=== PATIENT | male | born 1960 | race Two or more races ===

== ENCOUNTER 2022-05-02 10:02 | Emergency (ER) | payer OTHER, MEDICAID, SELFPAY ==
[2022-05-02 10:43] VITALS: BP 141/65; PULSE 85; RESP 16; TEMP 37.1; O2SAT 100; BMI 29.1
--- NOTE | 2022-05-02 13:38 | ED.BACK ---
HPI - Back Pain/Injury General Chief Complaint: Back Pain/Injury Stated Complaint: Hip/Back Pain Degenerative Disc Disease Time Seen by Provider: 05/02/22 13:28 Source: patient Mode of arrival: ambulatory Limitations: language barrier ([place]-speaking) History of Present Illness HPI Narrative: 61-year-old male with a past medical history of diabetes, hypertension, CKD, chronic back pain with degenerative disc disease who recently moved from [place] here who is [place]-speaking presenting to the ER with complaints of acute on chronic back pain over the past few months worse today. Reports that he is prescribed tramadol for his chronic back pain and has the MRI results on his phone and is able to show me. Reports that he is stab list of primary care provider at [facility] although his appointment is not until the end of June. Reports that he just ran out of his 50 mg tramadol that he was taking as prescribed for his chronic back pain. Reports that he would just need a refill for his tramadol. He brought in the empty bottle and showed it to me. He denies any new symptoms or any additional complaints or concerns at this time. MD elicited complaint: back pain Pertinent past history: prior back pain Onset (ago): month(s) Timing: constant Severity: moderate Similar Symptoms Previously: Yes Quality: aching Location: lumbar spine Radiation: none Exacerbating factors: movement, sitting upright, walking and lifting Relieving factors: other (Tramadol) Context: unknown Associated symptoms: denies other symptoms Treatments prior to arrival: other (See above) Work related injury: No Related Data Previous Rx's Medication Instructions Recorded tramadol 50 mg tablet 50 mg PO Q8H PRN pain #30 tabs 05/02/22 Allergies Allergy/AdvReac Type Severity Reaction Status Date / Time No Known Allergies Allergy Verified 05/02/22 10:42 Review of Systems Review of Systems: Constitutional : No trauma, No Weight loss, No Fever, No Chills, ENT/Mouth : No Hearing loss, No Ear Pain, No Nasal Congestion, No Sinus Pain, No Hoarseness, No sore throat, No Rhinorrhea, No Swallowing Difficulty Cardiovascular : No Chest Pain, No SOB Respiratory : No Cough, No Dyspnea Gastrointestinal : No Nausea, No Vomiting, No Diarrhea, No abdominal Pain, No Hematochezia, No Melena Genitourinary : No Dysuria, No Urinary Frequency, No Hematuria, No Urinary or Bowel Incontinence/retention Musculoskeletal : + Back pain, No neck pain, No joint stiffness, No joint swelling Skin : No Skin Lesions, No rash or signs of infection Neuro : No Weakness, No radiation, No Numbness, No Paresthesias, No headache, no loss of bowel or bladder incontinence, no saddle anesthesia, Focal weakness, No radiation Denies history of IV drug usage. Yes all other systems are reviewed and are negative [facility] Past Medical History Attestation statement: The following information was validated with the patient. Source: old records reviewed and nursing notes reviewed Physical Exam Vital Signs: Vital Signs: Last Vital Signs Temp 98.8 F 05/02/22 10:43 Pulse 85 05/02/22 10:43 Resp 16 05/02/22 10:43 BP 141/65 H 05/02/22 10:43 Pulse Ox 100 05/02/22 10:43 O2 Del Method 05/02/22 10:43 BMI result Body Mass Index 29.1 vital signs have been reviewed as normal and appeared to be correct. Blood pressure normal. Heart rate normal. Respiration rate normal. Temperature normal. Oxygen saturation normal. Appearance: Alert. Oriented X3. No acute distress. Head: Normal external exam. Normocephalic. Atraumatic. Eyes: PERRLA. EOMI. Conjunctiva and sclera normal. Eyelids normal. ENT: EAC normal. TM's Normal. Pharynx normal. Uvula midline. Moist mucous membranes. No trismus noted. No drooling noted. No muffled voice noted. Neck: Normal inspection. Neck supple. FROM. No adenopathy. Thyroid Normal. No meningeal signs. No neck mass noted. CVS: Normal heart rate and rhythm. Heart sound normal. No murmurs noted. Pulses normal throughout. Respiratory: No respiratory distress. Painless inspiration. Breath sounds normal. No wheezes/rales/rhonchi noted. Chest nontender. No accessory muscle usage noted or decreased air movement noted. Abdomen: Soft and nontender. Bowel sounds normal in all 4 quadrants. No distention noted. No organomegaly noted. No visible injury noted. Back: No CVA tenderness. Full range of motion noted. No obvious deformities, or edema. Mild para-spinal muscular tenderness from lumbar region to coccyx. Full ROM in back and lower extremities. 5/5 strength hip extension/flexion, abduction, adduction. Mild Lumbar pain with hip flexion against resistance. Straight leg raise test negative on right; Straight leg raise test negative on left; Reflexes normal ankle and knee bilaterally; EHL motor strength normal bilaterally. No rashes/lesion/induration/fluctuance or signs infection noted. Skin: Skin warm and dry. Normal skin color. Normal skin turgor. No rashes/lesions/lacerations noted. Extremities: No lower extremity edema. Extremities exhibit normal range of motion. Extremities nontender. Neuro: Oriented X 3. No motor deficit. No sensory deficit. Reflexes normal. Patient has a normal steady gait. Course Course Course Narrative: Pt c likely muscular pain, but could be herniated disc. Neuro exam shows no deficits. Not c/w AAA/epidural abscess/dissection.No high risk Hx (Incont, fever, immunosupp, recent surgery/LP, coag, signif trauma, wt loss, puls mass, hx/o Ca, TB, or IVDU) to warrant MRI/CT today. Not c/w Pyelo/UTI/kidney stone/spinal fx. Not cauda equina syndrome. No repeat imaging indicated at this time patient's MRI results as below. Will DC home with symptomatic treatment instructions follow-up with the PCP he established in June and to return if any new or worsening symptoms. Patient understands agrees with this plan. MDM - Back Pain/Injury Medical Records Attestation: I reviewed the patient's medical records. Discharge Plan Discharge Clinical Impression: Chronic back pain, Medication refill, Degenerative disc disease, lumbar Patient Disposition: Home, Self-Care Instructions: Degenerative Disc Disease (ED) Prescriptions: New tramadol 50 mg tablet 50 mg PO Q8H PRN (Reason: pain) Qty: 30 0RF Rx Instructions: May partially fill upon patient request Referrals: Physician,None [Primary Care Provider] - (your pcp as scheduled in June ) Print Language: [place]
[2022-05-02] MEDS: traMADoL HCL 50 MG TABLET PO (13:52)
== END 2022-05-02 14:08 | disposition home or self-care (01) ==
PROVIDERS: Emergency Provider Emergency Medicine; PCP Family Medicine
DX: M54.50 Low back pain, unspecified (principal); M51.36 Other intervertebral disc degeneration, lumbar region; Z79.899 Other long term (current) drug therapy
CPT/HCPCS: 99283

== ENCOUNTER 2022-06-13 11:28 | Emergency (ER) | payer OTHER, MEDICAID, SELFPAY ==
[2022-06-13 11:32] VITALS: BP 135/69; PULSE 90; RESP 19; TEMP 36.1; O2SAT 98; BMI 29.1
--- NOTE | 2022-06-13 11:36 | ED_ITS ---
HPI - Back Pain/Injury General Chief Complaint: Back Pain/Injury Stated Complaint: Back pain/Dislocated disc Time Seen by Provider: 06/13/22 11:41 Source: patient, old records reviewed and sister superior Mode of arrival: ambulatory Limitations: no limitations History of Present Illness HPI Narrative: 61 yo male with history of DM, HTN, CKD and chronic back pain your for evaluation of acute on chronic back pain in the setting of running out of his tramadol the other day. He was seen here on May 02 where his MRI was reviewed. He was discharged with a prescription for tramadol 30 tablets. He states he just recently moved here from [place]. He states tramadol is the only medication that works well for him. He is not able to take NSAIDs due to his CKD. He has an appointment with a new primary care doctor here on June 27. He denies any urinary symptoms. He denies any new injury. MD elicited complaint: back pain Pertinent past history: prior back pain Onset (ago): year(s) Timing: progressively worsening Severity: moderate Similar Symptoms Previously: Yes Location: left lower back Radiation: none Exacerbating factors: movement Relieving factors: none Context: unknown Associated symptoms: denies other symptoms Treatments prior to arrival: prescription analgesics Related Data Previous Rx's Medication Instructions Recorded tramadol 50 mg tablet 50 mg PO Q8H PRN pain #30 tabs 05/02/22 tramadol 50 mg tablet 50 mg PO Q8H PRN pain #20 tabs 06/13/22 Allergies Allergy/AdvReac Type Severity Reaction Status Date / Time No Known Allergies Allergy Verified 05/02/22 10:42 Review of Systems Review of Systems: Yes all other systems are reviewed and are negative [facility] Social History Social History Advance Directives: No Advance Directives Information Provided: Yes Physical Exam Vital Signs: Vital Signs: Last Vital Signs Temp 97 F 06/13/22 11:32 Pulse 90 06/13/22 11:32 Resp 19 06/13/22 11:32 BP 135/69 06/13/22 11:32 Pulse Ox 98 06/13/22 11:32 O2 Del Method 06/13/22 11:32 BMI result Body Mass Index 29.1 Appearance: Alert. Oriented X3. No acute distress. HEENT: normal inspection CVS: Normal heart rate and rhythm. Pulses normal. Respiratory: No respiratory distress. Skin: Skin warm and dry. Normal skin color. Normal skin turgor. No rashes. Back: normal inspection. normal ROM. Extremities: Normal inspection x4. Neuro: Oriented X 3. Steady gait Course Course Course Narrative: 61 yo male with history of DM, HTN, CKD and chronic back pain presents to the ER from home c/o acute on chronic low back pain on the left side in the setting of running out of tramadol at home. Seen here 05/02 and d/c home with rx for tramadol 50 mg for 30 tablets. No new injury. No red flag symptoms. Will discharge with a shorter course of tramadol, he has a fine with his PCP in 2 weeks. Patient given return precautions. Operations Executive used to answer all questions. Stable for discharge home. Medical Decision Making Medical Decision Making [facility] Narrative: 61-year-old male with history of CKD, HTN, dm, chronic back pain on chronic opiates who presents to the ER for refill of his tramadol prescription. No new injury. No red flag symptoms of low back pain. Differential Diagnosis Differential Diagnoses: The differential diagnosis associated with the presentation includes Degenerative disc disease, disc herniation, chronic back pain, muscle strain and spasm, UTI, less likely cauda equina, Radiology Impression Discussion of test interpretation with radiology: I have reviewed the radiologist's reading. Radiologist Impression: MRI from prior visit reviewed. External Record Review External record reviewed: Outpatient record Prescription Management I considered prescription management with: Pain Medication Chronic Conditions Patient?s care impacted by: Diabetes, Hypertension and Other (CKD) Limits treatment, not able to use NSAIDs given chronic kidney disease. Critical Care Time Critical Care Time Critical Care Time: No Discharge Plan Discharge Clinical Impression: Chronic back pain Patient Disposition: Home, Self-Care Instructions: Chronic Back Pain (DC) Additional Instructions: No bending, lifting or twisting. Use ice several times per day for 20 minutes at a time for the next 48 hours and then change to heat. Take medications as prescribed to help with pain and discomfort. Follow up with your Primary Care Doctor as soon as possible. If your pain worsens, if you develop new numbness, tingling, weakness, loss of function or incontinence call 911 or come back to the ER right away for evaluation. Sin milton colindres o carri. Use hielo varias veces al d?a peyton 20 minutos a la vez peyton las pr?ximas 48 horas y luego cambie a calor. [place] los medicamentos seg?n lo prescrito para ayudar con el dolor y la incomodidad. Sergey un seguimiento con lujan m?dico de atenci?n primaria lo antes posible. Si lujan dolor empeora, si desarrolla un nuevo entumecimiento, hormigueo, debilidad, p?rdida de funci?n o incontinencia, llame al 911 o regrese a la lilly de emergencias de inmediato para kati evaluaci?n. Prescriptions: New tramadol 50 mg tablet 50 mg PO Q8H PRN (Reason: pain) Qty: 20 0RF No Action tramadol 50 mg tablet 50 mg PO Q8H PRN (Reason: pain) Qty: 30 0RF Rx Instructions: May partially fill upon patient request Referrals: Jeanmarie Pineda MD [Primary Care Provider] - (chronic back pain) Interventions: ED Discharge Assessment Last Done: 06/13/22 11:43 Discharge Date/Time: 06/13/22 11:44 Print Language: Lithuanian
== END 2022-06-13 11:44 | disposition home or self-care (01) ==
PROVIDERS: Emergency Provider Student in an Organized Health Care Education/Training Program; PCP Family Medicine
DX: G89.29 Other chronic pain (principal); M54.50 Low back pain, unspecified; E11.22 Type 2 diabetes mellitus with diabetic chronic kidney disease; I12.9 Hypertensive chronic kidney disease with stage 1 through stage 4 chronic kidney disease, or unspecified chronic kidney disease; N18.9 Chronic kidney disease, unspecified
CPT/HCPCS: 99282; 99283

== ENCOUNTER 2022-06-27 10:24 | Outpatient (REF) | payer OTHER, MEDICAID, SELFPAY ==
[2022-06-27 14:13] LABS: Amphetamine Screen Urine Not Detected (Not Detect); Barbiturates, Urine Not Detected (Not Detect); Benzodiazepines Screen Urine Not Detected (Not Detect); Cannabinoid Screen Urine Not Detected (Not Detect); Cocaine Screen Urine Not Detected (Not Detect); Fentanyl, urine Not Detected (Not Detect); Opiate Screen Urine Not Detected (Not Detect); Phencyclidine Screen Urine Not Detected (Not Detect)
[2022-06-27 14:20] LABS: Basophils Absolute Auto 0.1 X10*3/uL (0.0-0.2); Basophils Percent Auto 1.1 % (0-2); Eosinophils Absolute Auto 0.3 X10*3/uL (0.0-0.4); Eosinophils Percent Auto 4.3 % (0-4); Hematocrit 40.2 % (42.0-52.0); Hemoglobin 13.1 g/dl (14.0-18.0); Imm Gran Abs Auto 0.02 X10*3/uL (0.00-0.03); Imm Gran Pct Auto 0.3 % (0.0-0.4); Lymphocytes Absolute Auto 2.2 X10*3/uL (1.2-4.9); Lymphocytes Percent Auto 34.3 % (20-40); MANUAL DIFF FLAG NO; Mean Corpuscular HGB Conc 32.6 g/dl (31.0-36.0); Mean Corpuscular Hemoglobin 30.3 pg (27.0-33.0); Mean Corpuscular Volume 92.8 fL (80.0-98.0); Monocytes Absolute Auto 0.6 X10*3/uL (0.1-1.2); Monocytes Percent Auto 9.3 % (2-11); Neutrophils Absolute Auto 3.3 x10*3/uL (2.0-8.3); Neutrophils Percent Auto 50.7 % (45-73); Platelet Count 304 X10*3/uL (160-400); Red Blood Count 4.33 X10*6/uL (4.60-5.80); Red Cell Distribution Width 13.2 % (11.0-16.0); White Blood Count 6.5 X10*3/uL (4.8-10.8)
[2022-06-27 14:21] LABS: Appearance Urine Clear; Color Urine Yellow; Glucose Urine UA >=1000 mg/dL (Negative); Leukocyte Esterase Urine Negative (Negative); Nitrite Urine Negative (Negative); PH 5.5 (5.0-9.0); Specific Gravity - Urine 1.025 (1.005-1.025); UMIC TRIGGER UA YES; Urine Blood Negative (Negative); Urine Ketones Negative (Negative); Urine Protein Negative (Neg-Trace)
[2022-06-27 14:28] LABS: Bacteria Urine None Seen (None Seen); Hyaline Casts Urine 0-2 /LPF (0-2); RBC Urine 0-2 /HPF (0-2); Squamous Epithelial Cell Urine 0-2 /HPF (0-2); WBC Urine 0-5 /HPF (0-5)
[2022-06-27 14:56] LABS: Erythrocyte Sedimentation Rate 29 MM/HR (0-15)
[2022-06-27 15:06] LABS: Creatinine Urine 62.34 mg/dL
[2022-06-27 15:32] LABS: Prostate Specific Antigen Scr 2.31 ng/mL (<0.05-4.0); TSH reflex Free T4 2.47 uIU/mL (0.32-4.0)
[2022-06-27 15:39] LABS: Estimated Average Glucose 306 mg/dL; Hemoglobin A1c % 12.3 %
[2022-06-27 15:46] LABS: Alanine Aminotransferase 31 U/L (0-40); Albumin Level 4.1 g/dL (3.5-5.0); Alkaline Phosphatase 75 U/L (39-117); Anion Gap 16 (12-20); Aspartate Amino Transferase 13 U/L (5-37); Bilirubin Total 0.3 mg/dL (0.0-1.0); Blood Urea Nitrogen 28 mg/dL (9-16); Calcium 9.3 mg/dL (8.4-10.2); Carbon Dioxide 27 mmol/L (22-29); Chloride 99 mmol/L (96-108); Cholesterol 240 mg/dL; Estimated Glomerular Filt Rate 27; Glucose Fasting 370 mg/dL (60-99); HDL Cholesterol 21 mg/dL; Potassium 4.8 mmol/L (3.3-5.1); Sodium 137 mmol/L (135-145); Total Protein 7.9 g/dL (6.5-8.0); Triglycerides 853 mg/dL
[2022-06-27 16:02] LABS: Microalbum/Creatinine Ratio Ur 62.5 ug/mg cr
== END 2022-06-27 10:25 | disposition home or self-care (01) ==
LOC: HO.WFDLDS 10:24
PROVIDERS: Visit Provider Family Medicine
DX: Z00.00 Encounter for general adult medical examination without abnormal findings (principal); Z12.5 Encounter for screening for malignant neoplasm of prostate; I10 Essential (primary) hypertension; M54.50 Low back pain, unspecified; R73.01 Impaired fasting glucose; G89.29 Other chronic pain
CPT/HCPCS: 36415; 80053; 80061; 80307; 81001; 81003; 82043; 83036; 84153; 84443; 85025; 85652

== ENCOUNTER 2022-07-14 11:09 | Emergency (ER) | payer OTHER, SELFPAY ==
[2022-07-14 11:26] VITALS: BP 132/67; PULSE 90; RESP 20; TEMP 36.8; O2SAT 100; BMI 31.6
--- NOTE | 2022-07-14 11:29 | ED.EXTPRO ---
HPI - Extremity Problem General Stated complaint: Leg Pain Time Seen by Provider: 07/14/22 11:28 Related Data Home Medications Medication Instructions Recorded Confirmed allopurinol 100 mg tablet 100 mg PO DAILY 06/27/22 aspirin 81 mg tablet,delayed 81 mg PO DAILY 06/27/22 release (Pilar Low Dose Aspirin) atorvastatin 20 mg tablet 20 mg PO DAILY 06/27/22 blood sugar diagnostic (OneTouch #10 ea 06/27/22 Ultra Test strips) carvedilol 12.5 mg tablet 12.5 mg PO BID 06/27/22 colchicine 0.6 mg tablet 0.6 mg PO DAILY 06/27/22 folic acid 1 mg tablet 1 mg PO DAILY 06/27/22 hydrochlorothiazide 12.5 mg capsule 12.5 mg PO DAILY 06/27/22 losartan 25 mg tablet 25 mg PO DAILY 06/27/22 ondansetron 4 mg disintegrating 4 mg PO Q8H 06/27/22 tablet tizanidine 4 mg capsule 4 mg PO BEDTIME PRN 06/27/22 tramadol 50 mg tablet 50 mg PO BID PRN 06/27/22 Previous Rx's Medication Instructions Recorded tramadol 50 mg tablet 50 mg PO Q8H PRN pain #30 tabs 05/02/22 tramadol 50 mg tablet 50 mg PO Q8H PRN pain #20 tabs 06/13/22 amlodipine 10 mg tablet 10 mg PO DAILY 30 days #30 tabs 06/27/22 dapagliflozin 10 mg tablet 10 mg PO DAILY 30 days #30 tabs 06/27/22 ([facility]) dulaglutide 0.75 mg/0.5 mL 0.75 mg (0.5 mL) subcut QWEEK 28 06/27/22 subcutaneous pen injector days #2 mL ([facility]) fenofibrate 160 mg tablet 160 mg PO DAILY 30 days #30 tabs 06/27/22 gabapentin 100 mg capsule 100 mg PO BID 30 days #60 caps 06/27/22 hydroxyzine HCl 50 mg tablet 50 mg PO DAILY PRN anxiety 30 days 06/27/22 #12 tabs insulin aspar prot-insulin aspart See Rx Instructions subcut DAILY 06/27/22 100 unit/mL (70-30) subcutaneous 30 days #27 mL pen (Novolog Mix 70-30FlexPen U-100) tramadol 50 mg tablet 50 mg PO Q8H PRN pain #14 tabs 02/10/23 Allergies Allergy/AdvReac Type Severity Reaction Status Date / Time No Known Allergies Allergy Verified 06/27/22 09:37 [facility] Past Medical History Medical History Smoker Social History Social History e-Cigarette/Vaping Use: Never Used Current occupational status: unemployed Cognitive needs: No Hearing needs: No Vision needs: Yes (wears glasses) Discharge Plan Discharge Clinical Impression: Chronic left hip pain, Chronic back pain Patient Disposition: Home, Self-Care Instructions: Chronic Pain (ED) Prescriptions: New tramadol 50 mg tablet 50 mg PO Q8H PRN (Reason: pain) Qty: 14 0RF Rx Instructions: May partially fill upon patient request No Action tramadol 50 mg tablet 50 mg PO Q8H PRN (Reason: pain) Qty: 20 0RF tramadol 50 mg tablet 50 mg PO Q8H PRN (Reason: pain) Qty: 30 0RF Rx Instructions: May partially fill upon patient request losartan 25 mg tablet 25 mg PO DAILY hydrochlorothiazide 12.5 mg capsule 12.5 mg PO DAILY carvedilol 12.5 mg tablet 12.5 mg PO BID folic acid 1 mg tablet 1 mg PO DAILY atorvastatin 20 mg tablet 20 mg PO DAILY tramadol 50 mg tablet 50 mg PO BID PRN aspirin [Pilar Low Dose Aspirin] 81 mg tablet,delayed release (DR/EC) 81 mg PO DAILY tizanidine 4 mg capsule 4 mg PO BEDTIME PRN (DME) OneTouch Ultra Test Strip See Rx Instructions .ROUTE BID Qty: 10 Rx Instructions: As directed allopurinol 100 mg tablet 100 mg PO DAILY ondansetron 4 mg tablet,disintegrating 4 mg PO Q8H colchicine 0.6 mg tablet 0.6 mg PO DAILY gabapentin 100 mg capsule 100 mg PO BID 30 Days Qty: 60 2RF hydroxyzine HCl 50 mg tablet 50 mg PO DAILY PRN (Reason: anxiety) 30 Days Qty: 12 0RF Trulicity 0.75 mg/0.5 mL pen injector 0.75 mg subcut QWEEK 28 Days Qty: 2 3RF insulin asp prt-insulin aspart [Novolog Mix 70-30FlexPen U-100] 100 unit/mL (70-30) insulin pen See Rx Instructions subcut DAILY 30 Days Qty: 27 3RF Rx Instructions: 20 - 30 U subcutaneously daily; fenofibrate 160 mg tablet 160 mg PO DAILY 30 Days Qty: 30 3RF Farxiga 10 mg tablet 10 mg PO DAILY 30 Days Qty: 30 3RF amlodipine 10 mg tablet 10 mg PO DAILY 30 Days Qty: 30 2RF Referrals: Jeanmarie Pineda MD [Primary Care Provider] - 2 days Print Language: Norwegian
--- NOTE | 2022-07-14 13:29 | ED.BACK ---
HPI - Back Pain/Injury General Chief Complaint: General Medical Stated Complaint: Leg Pain Time Seen by Provider: 07/14/22 11:28 Source: patient Mode of arrival: ambulatory Limitations: language barrier (Luxembour[place]-speaking) History of Present Illness HPI Narrative: 61-year-old male with a past medical history of diabetes, hypertension, CKD, chronic hip/back pain with degenerative disc disease who recently moved from [place] last year to here who is [place]bourger-speaking presenting to the ER with complaints of acute on chronic hip/back pain over the past few months worse today.? Reports that he is prescribed tramadol for his chronic back pain and has the MRI results on his phone and is able to show me.??Although when he went to his primary care provider's office they did not prescribe him the tramadol instead they gave him gabapentin he is reporting this is providing no symptomatic relief for his lower back/hip pain. Reports he wants a refill for his tramadol that he was usually prescribed. He denies any new symptoms related to this. MD elicited complaint: back pain Pertinent past history: prior back pain Onset (ago): day(s) Timing: constant Severity: moderate Similar Symptoms Previously: Yes Quality: aching Location: lumbar spine Radiation: left upper leg (hip area) Exacerbating factors: movement, walking and lifting Relieving factors: none Context: unknown Associated symptoms: denies other symptoms Treatments prior to arrival: cold therapy, heat therapy, NSAIDS and acetaminophen Work related injury: No Related Data Home Medications Medication Instructions Recorded Confirmed allopurinol 100 mg tablet 100 mg PO DAILY 06/27/22 aspirin 81 mg tablet,delayed 81 mg PO DAILY 06/27/22 release (Pilar Low Dose Aspirin) atorvastatin 20 mg tablet 20 mg PO DAILY 06/27/22 blood sugar diagnostic ([employer] #10 ea 06/27/22 Ultra Test strips) carvedilol 12.5 mg tablet 12.5 mg PO BID 06/27/22 colchicine 0.6 mg tablet 0.6 mg PO DAILY 06/27/22 folic acid 1 mg tablet 1 mg PO DAILY 06/27/22 hydrochlorothiazide 12.5 mg capsule 12.5 mg PO DAILY 06/27/22 losartan 25 mg tablet 25 mg PO DAILY 06/27/22 ondansetron 4 mg disintegrating 4 mg PO Q8H 06/27/22 tablet tizanidine 4 mg capsule 4 mg PO BEDTIME PRN 06/27/22 tramadol 50 mg tablet 50 mg PO BID PRN 06/27/22 Previous Rx's Medication Instructions Recorded tramadol 50 mg tablet 50 mg PO Q8H PRN pain #30 tabs 05/02/22 tramadol 50 mg tablet 50 mg PO Q8H PRN pain #20 tabs 06/13/22 amlodipine 10 mg tablet 10 mg PO DAILY 30 days #30 tabs 06/27/22 dapagliflozin 10 mg tablet 10 mg PO DAILY 30 days #30 tabs 06/27/22 ([facility]) dulaglutide 0.75 mg/0.5 mL 0.75 mg (0.5 mL) subcut QWEEK 28 06/27/22 subcutaneous pen injector days #2 mL ([facility]) fenofibrate 160 mg tablet 160 mg PO DAILY 30 days #30 tabs 06/27/22 gabapentin 100 mg capsule 100 mg PO BID 30 days #60 caps 06/27/22 hydroxyzine HCl 50 mg tablet 50 mg PO DAILY PRN anxiety 30 days 06/27/22 #12 tabs insulin aspar prot-insulin aspart See Rx Instructions subcut DAILY 06/27/22 100 unit/mL (70-30) subcutaneous 30 days #27 mL pen (Novolog Mix 70-30FlexPen U-100) tramadol 50 mg tablet 50 mg PO Q8H PRN pain #14 tabs 07/14/22 Allergies Allergy/AdvReac Type Severity Reaction Status Date / Time No Known Allergies Allergy Verified 06/27/22 09:37 Review of Systems Review of Systems: Constitutional : No trauma, No Weight loss, No Fever, No Chills, ENT/Mouth : No Hearing loss, No Ear Pain, No Nasal Congestion, No Sinus Pain, No Hoarseness, No sore throat, No Rhinorrhea, No Swallowing Difficulty Cardiovascular : No Chest Pain, No SOB Respiratory : No Cough, No Dyspnea Gastrointestinal : No Nausea, No Vomiting, No Diarrhea, No abdominal Pain, No Hematochezia, No Melena Genitourinary : No Dysuria, No Urinary Frequency, No Hematuria, No Urinary or Bowel Incontinence/retention Musculoskeletal : + Back/hip pain, No neck pain, No joint stiffness, No joint swelling Skin : No Skin Lesions, No rash or signs of infection Neuro : No Weakness, No radiation, No Numbness, No Paresthesias, No headache, no loss of bowel or bladder incontinence, no saddle anesthesia, Focal weakness, No radiation Denies history of IV drug usage. Yes all other systems are reviewed and are negative [facility] Past Medical History Attestation statement: The following information was validated with the patient. Source: old records reviewed and nursing notes reviewed Medical History Smoker Social History Social History e-Cigarette/Vaping Use: Never Used Advance Directives: No Advance Directives Information Provided: Yes Current occupational status: unemployed Cognitive needs: No Hearing needs: No Vision needs: Yes (wears glasses) Physical Exam Vital Signs: Vital Signs: Last Vital Signs Temp 98.2 F 07/14/22 11:26 Pulse 90 07/14/22 11:26 Resp 20 07/14/22 11:26 BP 132/67 07/14/22 11:26 Pulse Ox 100 07/14/22 11:26 O2 Del Method 07/14/22 11:26 BMI result Body Mass Index 31.6 vital signs have been reviewed as normal and appeared to be correct. Blood pressure normal. Heart rate normal. Respiration rate normal. Temperature normal. Oxygen saturation normal. Appearance: Alert. Oriented X3. No acute distress. Head: Normal external exam. Normocephalic. Atraumatic. No Solomon signs noted. No raccoon eyes noted Eyes: PERRLA. EOMI. Conjunctiva and sclera normal. Eyelids normal. ENT: EAC normal. TM's Normal. Pharynx normal. Uvula midline. Moist mucous membranes. No trismus noted. No drooling noted. No muffled voice noted. Neck: Normal inspection. Neck supple. FROM. No adenopathy. Thyroid Normal. No meningeal signs. No neck mass noted. CVS: Normal heart rate and rhythm. Heart sound normal. No murmurs noted. Pulses normal throughout. Respiratory: No respiratory distress. Painless inspiration. Breath sounds normal. No wheezes/rales/rhonchi noted. Chest nontender. No accessory muscle usage noted or decreased air movement noted. Abdomen: Soft and nontender. Bowel sounds normal in all 4 quadrants. No distention noted. No organomegaly noted. No visible injury noted. Back: No CVA tenderness. Full range of motion noted. No obvious deformities, or edema. Mild para-spinal muscular tenderness from lumbar region to coccyx. Full ROM in back and lower extremities. 5/5 strength hip extension/flexion, abduction, adduction. Mild Lumbar pain with hip flexion against resistance. Straight leg raise test negative on right; Straight leg raise test negative on left; Reflexes normal ankle and knee bilaterally; EHL motor strength normal bilaterally. No rashes/lesion/induration/fluctuance or signs infection noted. Skin: Skin warm and dry. Normal skin color. Normal skin turgor. No rashes/lesions/lacerations noted. Extremities: No lower extremity edema. Extremities exhibit normal range of motion. Extremities nontender. Neuro: Oriented X 3. No motor deficit. No sensory deficit. Reflexes normal. Patient has a normal steady gait. Course Course Course Narrative: Pt c likely muscular pain, but could be herniated disc. Neuro exam shows no deficits. Not c/w AAA/epidural abscess/dissection.No high risk Hx (Incont, fever, immunosupp, recent surgery/LP, coag, signif trauma, wt loss, puls mass, hx/o Ca, TB, or IVDU) to warrant MRI/CT today. Not c/w Pyelo/UTI/kidney stone/spinal fx. Not cauda equina syndrome. Imaging not currently indicated. DC c meds and f/u. Medical Decision Making External Record Review External record reviewed: Inpatient record, Office record, Outpatient record, Prior outpatient labs, Prior outpatient radiology, Primary care record and Outside ED record Prescription Management I considered prescription management with: Pain Medication (I reviewed the patient mass pat and he only had 2 prior prescription for tramadol in our system) Chronic Conditions Patient?s care impacted by: Diabetes and Hypertension Discharge Plan Discharge Clinical Impression: Chronic left hip pain, Chronic back pain Patient Disposition: Home, Self-Care Prescriptions: New tramadol 50 mg tablet 50 mg PO Q8H PRN (Reason: pain) Qty: 14 0RF Rx Instructions: May partially fill upon patient request No Action tramadol 50 mg tablet 50 mg PO Q8H PRN (Reason: pain) Qty: 20 0RF tramadol 50 mg tablet 50 mg PO Q8H PRN (Reason: pain) Qty: 30 0RF Rx Instructions: May partially fill upon patient request losartan 25 mg tablet 25 mg PO DAILY hydrochlorothiazide 12.5 mg capsule 12.5 mg PO DAILY carvedilol 12.5 mg tablet 12.5 mg PO BID folic acid 1 mg tablet 1 mg PO DAILY atorvastatin 20 mg tablet 20 mg PO DAILY tramadol 50 mg tablet 50 mg PO BID PRN aspirin [Pilar Low Dose Aspirin] 81 mg tablet,delayed release (DR/EC) 81 mg PO DAILY tizanidine 4 mg capsule 4 mg PO BEDTIME PRN (DME) OneTouch Ultra Test Strip See Rx Instructions .ROUTE BID Qty: 10 Rx Instructions: As directed allopurinol 100 mg tablet 100 mg PO DAILY ondansetron 4 mg tablet,disintegrating 4 mg PO Q8H colchicine 0.6 mg tablet 0.6 mg PO DAILY gabapentin 100 mg capsule 100 mg PO BID 30 Days Qty: 60 2RF hydroxyzine HCl 50 mg tablet 50 mg PO DAILY PRN (Reason: anxiety) 30 Days Qty: 12 0RF Trulicity 0.75 mg/0.5 mL pen injector 0.75 mg subcut QWEEK 28 Days Qty: 2 3RF insulin asp prt-insulin aspart [Novolog Mix 70-30FlexPen U-100] 100 unit/mL (70-30) insulin pen See Rx Instructions subcut DAILY 30 Days Qty: 27 3RF Rx Instructions: 20 - 30 U subcutaneously daily; fenofibrate 160 mg tablet 160 mg PO DAILY 30 Days Qty: 30 3RF Farxiga 10 mg tablet 10 mg PO DAILY 30 Days Qty: 30 3RF amlodipine 10 mg tablet 10 mg PO DAILY 30 Days Qty: 30 2RF Referrals: Jeanmarie Pineda MD [Primary Care Provider] - 2 days Interventions: ED Discharge Assessment Last Done: 07/14/22 11:43 Discharge Date/Time: 07/14/22 11:44 Print Language: Luxembourger
== END 2022-07-14 11:44 | disposition home or self-care (01) ==
PROVIDERS: Emergency Provider Student in an Organized Health Care Education/Training Program; PCP Family Medicine
DX: M25.552 Pain in left hip (principal); M54.50 Low back pain, unspecified
CPT/HCPCS: 99282; 99283

== ENCOUNTER 2022-07-28 09:00 | Outpatient (RCR) | payer OTHER, SELFPAY | END 2022-08-17 09:36 | disposition home or self-care (01) | LOC: HO.PT 09:00 | PROVIDERS: PCP Family Medicine; Visit Provider Family Medicine | DX: M54.50 Low back pain, unspecified (principal) | CPT/HCPCS: 97110; 97140; 97162 ==

== ENCOUNTER 2022-08-18 11:40 | Outpatient (REF) | payer OTHER, SELFPAY ==
[2022-08-18 13:09] LABS: Creatinine Urine 95.39 mg/dL; Total Protein Urine Random 10 mg/dL (<12)
[2022-08-18 13:44] LABS: Creatinine, mg/dL 84.81
[2022-08-18 14:10] LABS: Anion Gap 15 (12-20); Blood Urea Nitrogen 40 mg/dL (9-16); Calcium 9.8 mg/dL (8.4-10.2); Carbon Dioxide 28 mmol/L (22-29); Chloride 103 mmol/L (96-108); Estimated Glomerular Filt Rate 24; Phosphorus 4.1 mg/dL (2.7-4.5); Potassium 5.1 mmol/L (3.3-5.1); Sodium 141 mmol/L (135-145); Uric Acid 8.8 mg/dL (3.4-7.0); Vitamin D 25-OH Total 31.9 ng/mL (>30)
[2022-08-18 15:48] LABS: Creatinine, 24Hr Urine 2.1 G/Day (1.0-2.0); Total Volume 24 Hour Urine 2425 mL
[2022-08-18 15:51] LABS: Creatinine (CrCl) 2.76 mg/dL (0.5-1.4); Creatinine Clearance 51.7 mL/min (85-125)
[2022-08-21 11:50] LABS: ~Hepatitis C Antibody Nonreactive (Nonreactive)
[2022-08-21 14:04] LABS: PTHI 13 pg/mL (16-77)
[2022-08-23 00:33] LABS: Prot Elec - Albumin 4.5 g/dL (3.8-4.8); Prot Elec - Alpha1 0.3 g/dL (0.2-0.3); Prot Elec - Alpha2 0.7 g/dL (0.5-0.9); Prot Elec - Beta 1 0.5 g/dL (0.4-0.6); Prot Elec - Beta 2 0.5 g/dL (0.2-0.5); Prot Elec - Gamma 1.2 g/dL (0.8-1.7); Prot Elec - Total Protein 7.7 g/dL (6.1-8.1)
[2022-08-25 19:13] LABS: Phospholipase A2 IgG ELISA <4 RU/mL; Phospholipase A2 IgG IFA NEGATIVE (NEGATIVE)
== END 2022-08-18 11:41 | disposition home or self-care (01) ==
LOC: HO.LAB 11:40
PROVIDERS: Visit Provider Internal Medicine Nephrology
DX: I12.9 Hypertensive chronic kidney disease with stage 1 through stage 4 chronic kidney disease, or unspecified chronic kidney disease (principal); N18.4 Chronic kidney disease, stage 4 (severe)
CPT/HCPCS: 36415; 80051; 82306; 82310; 82565; 82575; 83520; 83970; 84100; 84156; 84165; 84520; 84550; 86255; 86803

== ENCOUNTER → 2022-09-20 08:52 | Outpatient (BNVA) | payer OTHER, SELFPAY | PROVIDERS: PCP Family Medicine; Referring Provider Family Medicine; Visit Provider Internal Medicine Cardiovascular Disease | DX: I25.10 Atherosclerotic heart disease of native coronary artery without angina pectoris (principal); R07.9 Chest pain, unspecified | CPT/HCPCS: 93005; 99202 ==

== ENCOUNTER → 2022-10-16 07:38 | Outpatient (REF) | payer OTHER, SELFPAY ==
--- NOTE | ~2022-10-16 | NM_ITS ---
EXERCISE MYOCARDIAL PERFUSION STUDY INDICATION: EXERCISE MYOCARDIAL PERFUSION STUDY INDICATION: Chest pain, assess for coronary disease and ischemia TECHNIQUE: The patient was brought in for an exercise perfusion study on 10/16/2022. Patient performed exercise as per Aguilar protocol and was injected 25 mCi of sestamibi once target heart rate was achieved. Images were obtained using the SPECT gamma camera interlaced with the gating device. Images were obtained in supine position. Resting perfusion study was performed on 10/18/2022. Patient was administered 25 mCi of sestamibi intravenously at rest. Images were then obtained in supine position. Images were processed with the software and compared side to side in short axis, horizontal long axis and vertical long axis views. Total DLP 164mGy-cm. FINDINGS: Raw images were reviewed. Arms by the patient's side. The stress perfusion study showed diminished tracer uptake along the inferolateral wall from base to apex. There is improvement with CT attenuation correction suggestive of diaphragmatic attenuation artifact. The gated study shows normal LV systolic function with calculated LVEF of 53%. LV cavity is normal in size. The gated study shows normal wall thickening and contraction of segments. Resting study shows no significant perfusion abnormality. Gating at rest reveals normal wall motion with ejection fraction at 65%. The findings are consistent with reversible inferolateral defect with improvement during CT attenuation correction. NM/NM cardiolite stress test IMPRESSION: 1. Myocardial perfusion imaging study shows probable ischemia in the inferolateral wall. Improvement with CT attenuation correction suggestive of diaphragmatic attenuation artifact, but considering the patient's symptoms and coronary anatomy, could also be from ischemia. 2. Gated LVEF is 50% during stress and 64% during rest. 3. Transient ischemic dilatation not present. EKG component of the test reported separately.
--- NOTE | 2022-10-16 07:42 | CA_ITS ---
Acquisition Time: 2022-10-16 08:44:13 Total Exercise Time: 00:07:27 Test Indications: CHEST PAIN Medications: CARVEDILOL ASA HCTZ ALLOPURINOL Protocol: JOSE ANTONIO Max HR: 126 BPM 79% of Pred: 159 BPM Max BP: 150/080 mmHG Max Work Load: 9.2 METS Exercise stress test with exercise 7 min 27 sec of Jose Antonio protocol, achieving 79% MPHR, 9.2 METs, with moderate sob and fatigue with need to stop, no chest discomfort, without arrythmia, with normotensive response to exercise, with nondiagnostic EKG for ischemia due to baseline ST/ T wave abn leads III, aVF, V6. In recovery his breathing quickly improved. Nuclear images pending. Test reviewed with Dr Schaffer. Referred By: Tl Jones Overread By: SERAFIN ROSARIO
--- NOTE | 2022-10-16 07:42 | CA_ITS ---
Transthoracic Echocardiogram Patient (Last, First, Middle): Efrain Dewitt, Gender: Male Date of : 1960 Age: 61 Procedure Date: 10/16/2022 Procedure Type: Transthoracic Echocardiogram Location: OP Height: 165.1 cm Weight: 81.19 kg BSA: 1.89 m2 Heart Rate: 83 bpm BP: 145 / 70 mmHg Coating Technician: BRITTANY Referring MD: Tl Jones MD Symptoms: R07.9 - Chest pain, unspecified Study Quality: Good ECG Rhythm: Sinus Conclusions: - The left ventricular systolic function is normal. The calculated ejection fraction is 57% by biplane method. - No obvious valvular pathology seen on this study. Findings Left Ventricle Normal left ventricular cavity size. There is mildly increased left ventricular wall thickness. The left ventricular systolic function is normal. The calculated ejection fraction is 57% by biplane method. There is no evidence of regional wall motion abnormalities. Diastolic function is normal for age. LV peak GLS -15.2% (question reliability). Right Ventricle Normal right ventricular cavity size and systolic function. Atria Both atria are normal in size. Aortic Valve There is a normal trileaflet aortic valve. There is no aortic valve stenosis. There is no aortic valve regurgitation. Mitral Valve The mitral valve appears normal. There is trace mitral valve regurgitation. There is no mitral valve stenosis. Pulmonic Valve The pulmonic valve is likely normal. Tricuspid Valve Normal tricuspid valve structure. There is trace tricuspid valve regurgitation. There is no evidence of pulmonary hypertension. Great Vessels The asc aorta is normal in size. Venous The inferior vena cava is normal in size and collapses greater than 50% with inspiration. Pericardium/Pleural There is no evidence of pericardial effusion. Prior Study Comparison No prior study available for comparison. Recommendations, Care & Conclusions No obvious valvular pathology seen on this study. Measurements 2D Linear Measurements IVSd: 1.07 0.6-0.9/0.6-1.0 cm LVIDd: 4.89 3.9-5.3/4.2-5.9 cm LVIDd Index: 2.59 2.4-3.2/2.2-3.1 cm/m2 LVIDs: 3.20 2.0-3.6 cm LVPWd: 1.11 0.7-1.1 cm LA Diam: 3.80 2.7-3.8/3.0-4.0 cm LAIDs Index: 2.01 1.5-2.3 cm/m2 LV Mass: 245.92 67-162/88-224 g LV Mass Index: 130.12 43-95/49-115 g/m2 LVOT Diam: 2.00 3.0+(-)1.3 cm 2D Systolic Function EF 4C: 57.00 >55% EF 2C: 58.40 >55% EF BiP: 57.30 >55% Mitral Valve MV Pk E: 0.92 MV PK A: 0.91 MV Decel Time: 208.00 E/A: 1.00 E'Lateral: 8.35 E'Medial: 8.43 E/E' Med: 10.90 E/E' Lat: 11.00 PHT: 61.00 MVA PHT: 3.61 Decel Norton: 4.42 Aortic Valve AoV Pk Marcos: 1.52 AoV Mn Marcos: 1.03 AoV VTI: 0.32 AoV Pk Grad: 9.00 Aov Mn Grad: 5.00 STEPHANIE Cont.VTI: 2.62 LVOT LVOT Pk Marcos: 1.26 LVOT Mn Marcos: 0.89 LVOT VTI: 0.27 LVOT Pk Grad: 6.00 LVOT Mn Grad: 4.00 LVOT Diam: 2.00 LVOT Area: 3.14 Diastolic Function MV Pk E: 0.92 MV Pk A: 0.91 E/A: 1.00 E'Medial: 8.43 E/E' Med: 10.90 E' Laterial: 8.35 E/E' Lat: 11.00 Right Ventricle TAPSE (mm): 22.60 TVS' Marcos: 10.90 Tricuspid Valve TR Pk Marcos: 1.35 TR Pk Grad: 7.00 RA Press: 3.00 RVSP: 10.00 Great Vessels Aorta Sinus of Valsalva: 3.50 2.0-3.5 cm Ao Asc: 3.20 2.1-3.4 cm Updated in Other Vendor System with Status of Final Raman Veras MD electronically signed on 10/16/2022 9:15:30 AM with status of Final
== END ==
LOC: HO.CARD 07:38
PROVIDERS: PCP Family Medicine; Visit Provider Internal Medicine Cardiovascular Disease
DX: R07.9 Chest pain, unspecified (principal)
CPT/HCPCS: 78452; 93017; 93306; 93356; A9500

== ENCOUNTER → 2022-10-23 08:35 | Outpatient (BNVA) | payer OTHER, SELFPAY | PROVIDERS: PCP Family Medicine; Referring Provider Family Medicine; Visit Provider Internal Medicine Cardiovascular Disease | DX: R07.9 Chest pain, unspecified (principal) | CPT/HCPCS: 99212 ==

== ENCOUNTER 2022-11-17 16:14 | Outpatient (REF) | payer OTHER, SELFPAY ==
--- NOTE | ~2022-11-17 | XR_ITS ---
EXAMINATION: XR CHEST CLINICAL INFORMATION: Bilateral lower extremity swelling COMPARISON: None available. TECHNIQUE: 2 views of the chest were obtained. FINDINGS: The cardiac and mediastinal contours are normal. The lungs are clear. No pleural effusion or pneumothorax. Degenerative changes of the spine. XR/XR chest 2V IMPRESSION: No evidence for acute disease in the chest.
== END 2022-11-17 16:15 | disposition home or self-care (01) ==
LOC: HO.HHCX 16:14
PROVIDERS: Visit Provider Nurse Practitioner Family
DX: R60.0 Localized edema (principal)
CPT/HCPCS: 71046

== ENCOUNTER 2023-01-23 09:20 | Outpatient (AMB) | payer OTHER, SELFPAY ==
--- NOTE | 2023-01-23 09:23 | MHC.OFFVIS ---
Intake Vital Signs 01/23/23 09:24 Height 5 ft 5 in Weight 189 lb 9.561 oz BMI 31.5 BP 120/76 Blood Pressure Location Lt brachial Position Sitting Pulse 80 Intake Visit Reasons: 3 month follow up Intake Note: 3 month follow-up feeling good Display Coordinator Required: Yes Display Coordinator Name: Kandy caldera Allergies No Known Allergies Allergy (Verified 10/23/22 08:51) Medication List - Last Reconciled 01/23/23 by Tl Jones MD allopurinol 100 mg PO DAILY amlodipine 10 mg PO DAILY aspirin (Pilar Low Dose Aspirin) 81 mg PO DAILY atorvastatin 80 mg PO DAILY 90 days blood sugar diagnostic ([employer] Ultra Test strips) As directed carvedilol 12.5 mg PO BID dapagliflozin propanediol (Farxiga) 10 mg PO DAILY 30 days folic acid 1 mg PO DAILY gabapentin 100 mg PO BID 30 days hydroxyzine HCl 50 mg PO DAILY PRN icosapent ethyl (Vascepa) 2 grams (2 x 1 gram) PO BID insulin glargine (Lantus Solostar U-100 Insulin) units subcut isosorbide mononitrate ER 30 mg PO DAILY losartan 25 mg PO DAILY ondansetron 4 mg PO Q8H ranolazine ER 500 mg PO Q12H tizanidine 4 mg PO BEDTIME PRN tramadol 50 mg PO Q8H PRN HPI HPI Comments History of Present Illness Details Efrain comes for follow-up after 3 months. Since starting run exercise exercise capacity is improved and currently has no symptoms angina even after walking for an hour. He is tolerating all his medications well. No lightheadedness, syncope. No worsening shortness of breath, orthopnea, PND. He has developed bilateral lower extremity edema below the knee. He was initially prescribed diuretic was then was told to follow-up with Cardiology. He denies any prolonged palpitations or irregular heartbeat. PFS Medical History Exertional chest pain Smoker Surgical History Hx of cardiac catheterization Family History Mother No problems noted. Father No problems noted. Social History e-Cigarette/Vaping Use: Never Used Current occupational status: unemployed Cognitive needs: No Hearing needs: No Vision needs: Yes (wears glasses) Review of Systems Const Denies chills, Denies fatigue, Denies fever(s), Denies frequent falls, Denies weakness, Denies weight gain and Denies weight loss ENT Denies dizziness Card Denies chest pain, Denies leg edema, Denies lightheadedness, Denies palpitations, Denies dyspnea, Denies dyspnea on exertion, Denies orthopnea and Denies other (loss of consciousness) Resp Denies cough, Denies dyspnea and Denies dyspnea on exertion GI Denies hematochezia and Denies change in stool character Musc Denies abnormal gait, Denies muscle weakness, Denies numbness, Denies radiating pain into limb and Denies tingling Neuro Denies Abnormal speech present, Denies abnormal gait, Denies dizziness, Denies frequent falls, Denies numbness, Denies tingling and Denies weakness Endo Denies fatigue and Denies palpitations Physical Exam Vital Signs: Last Vital Signs Pulse 80 01/23/23 09:24 BP 120/76 01/23/23 09:24 BMI result Body Mass Index 31.5 Const General: cooperative, comfortable, no acute distress, well developed, alert, awake, anxious and well groomed Nutritional Appearance: well nourished and overweight Orientation/consciousness: patient oriented x3 Limitations: no limitations Neck Neck: Yes trachea midline, Yes supple and Yes no JVD Carotids: no bruits Resp Effort & Inspection: normal respiratory effort Auscultation: clear to auscultation bilaterally Cardio Jugular venous distension: no JVD Palpation: normal PMI Rate: regular rate Rhythm: regular rhythm Heart sounds: S1 normal heart sound present, S2 normal heart sound present, no click, no gallops, no murmurs and no rubs Neuro General: patient oriented x3 and no focal motor deficits Speech: No Abnormal speech present Extrem General: No clubbing, No cyanosis and Yes edema (One to 2+) Office Procedures EKG Details: EKG shows normal sinus rhythm with T-wave abnormality in inferior leads [id number], Complete Assessment & Plan Assessment & Plan (1) CAD (coronary artery disease): Code(s): I25.10 - Atherosclerotic heart disease of [place] coronary artery without angina pectoris Plan: CAD with resolved angina on increase medical therapy in addition of Ranexa. He is tolerating this therapy well. Continue current antianginal therapy with amlodipine, isosorbide, Ranexa. Continue maintain activity level as tolerated. Advised to call me with worsening symptoms. Advised to seek emergency care for symptoms at rest. Continue low-dose aspirin therapy for life. Continue aggressive risk factor modification with goal hemoglobin A1c less than 7% being pursue 3 our office. Continue current lipid therapy. Advised lipid panel near future with target goal triglycerides less than 200 mg/dL and LDL less than 70 mg/dL. Follow-up after lipid panel. Continue aggressive blood pressure control, see below. (2) Hypertension: Code(s): I10 - Essential (primary) hypertension Plan: Blood pressure is currently well optimized. Advised to monitor blood pressure at home maintain a log. Goal blood pressure less than 130/84. Advised low-salt diet. Advised to maintain activity level as tolerated and improve his aerobic capacity as well as participate in some weight loss program. (3) Leg edema: Code(s): R60.0 - Localized edema Plan: Bilateral leg edema does not appear to be related to heart failure as there is no evidence of central venous congestion. Most likely related to therapy with amlodipine and warm weather. Advised compression venous stockings. Will follow up in the clinic in 6 months time, sooner p.r.n.. Thank you for allowing me to partake in his care Orders: Orders Lipid Panel Today I25.10 - Atherosclerotic heart disease of [place] coronary artery without angina pectoris Coding Level of Care Code Est Pt Level 4 (61313) Diagnoses CAD (coronary artery disease) I25.10 Hypertension I10 Leg edema R60.0 CPT Codes EKG - CPT: [id number], Complete ([id number])
[2023-01-23 09:24] VITALS: BP 120/76; PULSE 80; BMI 31.5
== END 2023-01-23 09:56 | disposition home or self-care (01) ==
PROVIDERS: PCP Family Medicine; Referring Provider Family Medicine; Visit Provider Internal Medicine Cardiovascular Disease
DX: I25.10 Atherosclerotic heart disease of native coronary artery without angina pectoris (principal); I10 Essential (primary) hypertension; R60.0 Localized edema
CPT/HCPCS: 93010; 99214

== ENCOUNTER → 2023-01-23 09:20 | Outpatient (BNVA) | payer OTHER, SELFPAY | PROVIDERS: PCP Family Medicine; Referring Provider Family Medicine; Visit Provider Internal Medicine Cardiovascular Disease | DX: I25.10 Atherosclerotic heart disease of native coronary artery without angina pectoris (principal); I10 Essential (primary) hypertension; R60.0 Localized edema | CPT/HCPCS: 93005; 99212 ==

== ENCOUNTER 2023-02-01 08:20 | Outpatient (REF) | payer OTHER, SELFPAY ==
[2023-02-01 10:36] LABS: Anion Gap 12 (12-20); Blood Urea Nitrogen 30 mg/dL (9-16); Calcium 9.4 mg/dL (8.4-10.2); Carbon Dioxide 27 mmol/L (22-29); Chloride 105 mmol/L (96-108); Estimated Glomerular Filt Rate 24; Potassium 4.3 mmol/L (3.3-5.1); Sodium 140 mmol/L (135-145)
== END 2023-02-01 08:21 | disposition home or self-care (01) ==
LOC: HO.LAB 08:20
PROVIDERS: Absent Provider Internal Medicine Nephrology; PCP Nurse Practitioner Family; Visit Provider Internal Medicine Cardiovascular Disease
DX: I12.9 Hypertensive chronic kidney disease with stage 1 through stage 4 chronic kidney disease, or unspecified chronic kidney disease (principal); N18.32 Chronic kidney disease, stage 3b
CPT/HCPCS: 36415; 80051; 82310; 82565; 84100; 84520

== ENCOUNTER 2023-03-14 09:14 | Outpatient (REF) | payer OTHER, SELFPAY | END 2023-03-14 09:15 | disposition home or self-care (01) | LOC: HO.LAB 09:14 | PROVIDERS: PCP Nurse Practitioner Family; Visit Provider Internal Medicine Nephrology | DX: I12.9 Hypertensive chronic kidney disease with stage 1 through stage 4 chronic kidney disease, or unspecified chronic kidney disease (principal); N18.32 Chronic kidney disease, stage 3b | CPT/HCPCS: 36415; 80051; 82310; 82565; 84520 ==

== ENCOUNTER 2023-04-10 11:45 | Emergency (ER) | payer OTHER, SELFPAY ==
--- NOTE | ~2023-04-10 | XR_ITS ---
EXAMINATION: XR CHEST CLINICAL INFORMATION: Chest pain COMPARISON: Chest 11/17/2022 TECHNIQUE: 2 views of the chest were obtained. 1300. FINDINGS: No significant abnormality is noted involving the heart, lungs, mediastinum, bony thorax or soft tissues. XR/XR chest 2V IMPRESSION: Unremarkable examination.
--- NOTE | 2023-04-10 07:38 | ECG_ITS ---
Test Reason : CX PAIN Blood Pressure : / mmHG Vent. Rate : 110 BPM Atrial Rate : 110 BPM P-R Int : 158 ms QRS Dur : 088 ms QT Int : 318 ms P-R-T Axes : 018 -29 017 degrees QTc Int : 430 ms Sinus tachycardia Left anterior fascicular block Abnormal ECG When compared with ECG of 10-APR-2023 11:51, No significant change was found Referred By: Skye Taylor Electronically Signed By:MICKEY NY MD
--- NOTE | 2023-04-10 11:47 | ECG_ITS ---
Test Reason : cp Blood Pressure : / mmHG Vent. Rate : 101 BPM Atrial Rate : 101 BPM P-R Int : 156 ms QRS Dur : 084 ms QT Int : 336 ms P-R-T Axes : 015 -32 015 degrees QTc Int : 435 ms Sinus tachycardia Left anterior fascicular block Abnormal ECG No previous ECGs available Referred By: Bernice [place] Electronically Signed By:MICKEY [place] MD
[2023-04-10 12:35] VITALS: BP 152/80; PULSE 100; RESP 20; TEMP 36.8; O2SAT 97; BMI 31.4
--- NOTE | 2023-04-10 12:38 | ED_ITS ---
HPI - Chest Pain General Chief Complaint: Chest Pain Stated Complaint: chest pain , headache, nausea Time Seen by Provider: 04/10/23 15:17 Source: patient Mode of arrival: ambulatory Limitations: no limitations History of Present Illness HPI narrative: Patient comes to the emergency room complaining of 3 days of sharp chest pain continuous, 08/11. Patient reports that he had subjective fever and chills about 3 days ago and that is when the chest pain started as well. Patient states he has not been coughing, no URI or UTI symptoms. Patient states that he is immunized for COVID. However, no recent immunizations. Patient states that he came to the hospital because his daughter forced him to come, otherwise he would have stayed at home. Of note, patient states that he has history of coronary artery disease, states that approximately 6 years ago he had a cardiac stent placed in [place]. Patient states that a few months ago, he had a stress test done which showed that his stent may be clogged Related Data Home Medications Medication Instructions Recorded Confirmed allopurinol 100 mg tablet 100 mg PO DAILY 06/27/22 01/23/23 aspirin 81 mg tablet,delayed 81 mg PO DAILY 06/27/22 01/23/23 release (Pilar Low Dose Aspirin) blood sugar diagnostic (OneTouch #10 ea 06/27/22 10/23/22 Ultra Test strips) carvedilol 12.5 mg tablet 12.5 mg PO BID 06/27/22 01/23/23 folic acid 1 mg tablet 1 mg PO DAILY 06/27/22 01/23/23 losartan 25 mg tablet 25 mg PO DAILY 06/27/22 01/23/23 ondansetron 4 mg disintegrating 4 mg PO Q8H 06/27/22 01/23/23 tablet tizanidine 4 mg capsule 4 mg PO BEDTIME PRN 06/27/22 01/23/23 insulin glargine 100 unit/mL (3 unit subcut 09/20/22 01/23/23 mL) subcutaneous pen (Lantus Solostar U-100 Insulin) amlodipine 10 mg tablet 10 mg PO DAILY 10/23/22 01/23/23 hydroxyzine HCl 50 mg tablet 50 mg PO DAILY PRN anxiety 10/23/22 01/23/23 Previous Rx's Medication Instructions Recorded tramadol 50 mg tablet 50 mg PO Q8H PRN pain #20 tabs 06/13/22 dapagliflozin propanediol 10 mg 10 mg PO DAILY 30 days #30 tabs 06/27/22 tablet (Farxiga) gabapentin 100 mg capsule 100 mg PO BID 30 days #60 caps 06/27/22 atorvastatin 80 mg tablet 80 mg PO DAILY 90 days #90 tabs 12/11/22 isosorbide mononitrate 30 mg 30 mg PO DAILY #30 tabs 01/19/23 tablet,extended release 24 hr icosapent ethyl 1 gram capsule 2 g (2 x 1 gram) PO BID 90 days 01/25/23 (Vascepa) #360 caps ranolazine 500 mg tablet,extended 500 mg PO Q12H #60 tabs 02/26/23 release,12 hr Allergies Allergy/AdvReac Type Severity Reaction Status Date / Time No Known Allergies Allergy Verified 04/10/23 12:37 Review of Systems 2 Review of Systems: Constitutional : No Weight loss, No Fever, No Chills, No Night Sweats, No Fatigue, No Malaise ENT/Mouth : No Hearing loss, No Ear Pain, No Nasal Congestion, No Sinus Pain, No Hoarseness, No sore throat, No Rhinorrhea, No Swallowing Difficulty Eyes: No Eye Pain, No Swelling, No Redness, No Foreign Body, No Discharge, No Vision Changes Cardiovascular : Patient complaining of left-sided chest pain, continues, 3/10, for 3 days. No SOB, No Dyspnea on Exertion, No Orthopnea, No Edema, No Palpitations Respiratory : No Cough, No Sputum, No Wheezing, No Smoke Exposure, No Dyspnea Gastrointestinal : No Nausea, No Vomiting, No Diarrhea, No Constipation, No abdominal Pain, No Hematochezia, No Melena Genitourinary : no irregular bleeding, No Dysuria, No Urinary Frequency, No Hematuria, No Urinary Incontinence, No Urgency, No Flank Pain, No Urinary Flow Changes, No Hesitancy Musculoskeletal : No joint pain, No Myalgias, No Joint Swelling Skin : No Skin Lesions, No rash Neuro : No Weakness, No Numbness, No Paresthesias, No Loss of Consciousness, No Dizziness, No Headache Psych : No Anxiety/Panic, No Depression, No SI/HI/AH/VH, No Social Issues, Heme/Lymph: No Bruising, No Bleeding,No Lymphadenopathy Endocrine : No Polyuria, No Polydipsia, No Temperature Intolerance PMFSH Past Medical History Medical History Diabetic retinopathy Diabetes Hypertension CKD (chronic kidney disease) Exertional chest pain Smoker Surgical History Hx of cardiac catheterization Family History Family History Mother No problems noted. Father No problems noted. Social History Social History e-Cigarette/Vaping Use: Never Used Advance Directives: No Advance Directives Information Provided: Yes Current occupational status: unemployed Cognitive needs: No Hearing needs: No Vision needs: Yes (wears glasses) Physical Exam 2 Vital Signs: Vital Signs: Last Vital Signs Temp 100.1 F 04/10/23 15:36 Pulse 108 H 04/10/23 16:29 Resp 16 04/10/23 16:16 BP 145/78 H 04/10/23 16:29 Pulse Ox 95 04/10/23 16:16 O2 Del Method Room Air 04/10/23 16:16 BMI result Body Mass Index 31.4 Const: Other: Appearance: Alert. Oriented X3. No acute distress. Eyes: Pupils equal, round and reactive to light. ENT: Pharynx normal. Neck: Normal inspection. Neck supple. No lymph nodes noted. No crepitus CVS: Normal heart rate and rhythm. Pulses normal. Normal S1 and S2 Respiratory: No respiratory distress. Breath sounds normal. No Wheezing. No rales Abdomen: Soft and nontender. No rigidity. No distention. Skin: Skin warm and dry. Normal skin color. Normal skin turgor. Extremities: No lower extremity edema. No Lacerations. No Rash Neuro: Oriented X 3. No motor deficit. No sensory deficit. Moving all extremities. No slurred speech. CN 2 through 12 grossly intact Psych: calm, cooperative, normal affect Course Course Course Narrative: RME performed by Bernice Moctezuma PA-C. Patient is a 62 year old assigned male at presenting to the emergency department with mid sternal chest pain. Labs, imaging, and swbas ordered. Patient placed back in the waiting room pending room availability and results. Medications Administered Generic Name Dose Route Start Last Admin Trade Name Freq PRN Reason Stop Dose Admin Heparin Sodium/Sodium Chloride 25,000 unit in 250 mls @ 0 mls/hr 04/10/23 15:45 04/10/23 16:13 Heparin Sodium,Porcine/1/2ns IVCONT 14 units/kg/hr .Q0M YVONNE 11.97 mls/hr Administration Protocol Per Protocol Nitroglycerin 0.4 mg 04/10/23 15:45 04/10/23 16:29 Nitroglycerin 0.4 Mg Tab.Subl SUBLINGUAL 0.4 mg Q5MX3 PRN Administration Chest Pain Discontinued Medications Generic Name Dose Route Start Last Admin Trade Name Jennifer PRN Reason Stop Dose Admin Acetaminophen 650 mg 04/10/23 16:23 04/10/23 16:28 Acetaminophen 325 Mg Tablet PO 04/10/23 16:24 650 mg ONCE ONE Administration Medical Decision Making Medical Decision Making [facility] Narrative: -my interpretation of labs: White blood cell count 16, likely reactive leukocytosis, normal lactic acid, patient's creatinine 2.4 which is at baseline. Troponin 1. Is 41,651. -patient was given full-dose aspirin, nitroglycerin sublingual, started on heparin - I discussed the patient with Dr. Jones from Cardiology, recommendations: Transfer patient to [facility] due to high risk of ACS -2nd troponin: 73343.7 -patient states that he feels much more comfortable, chest pain 06/13. -last set of vitals: Pressure 145/78, pulse 100, respirations 16, temperature 100.1 degrees, saturating between 95 and 98% on room air -I discussed the patient with Dr. Guan, freelance graphic designer at [facility], patient will be transferred to internal medicine floor. -given the patient's EKG findings plus elevated troponin, patient likely has viral myocarditis, still needs to be confirmed. -patient agrees with plan Differential Diagnosis Differential Diagnoses: The differential diagnosis associated with the presentation includes (NSTEMI, STEMI, myocarditis, pericarditis) Admission/Observation Consideration of admission/observation: Escalation of care including admission/observation considered Consult Healthcare Provider Management of the patient was discussed with: Technology Program Manager Lab Data [facility] Lab Attestation statement: I reviewed the patient's lab results. 04/10/23 14:19 04/10/23 14:19 Labs: Lab Results 04/10/23 04/10/23 Range/Units 14:19 15:51 WBC 16.0 H (4.8-10.8) X10*3/uL RBC 4.14 L (4.60-5.80) X10*6/uL Hgb 12.5 L (14.0-18.0) g/dl Hct 38.0 L (42.0-52.0) % MCV 91.8 (80.0-98.0) fL MCH 30.2 (27.0-33.0) pg MCHC 32.9 (31.0-36.0) g/dl RDW 13.9 (11.0-16.0) % Plt Count 322 (160-400) X10*3/uL MPV 9.8 (9.4-12.4) fL Immature Gran % (Auto) 0.3 (0.0-0.4) % Neut % (Auto) 73.9 H (45-73) % Lymph % (Auto) 13.0 L (20-40) % Nye % (Auto) 12.4 H (2-11) % Eos % (Auto) 0.1 (0-4) % Baso % (Auto) 0.3 (0-2) % Lymph # (Auto) 2.1 (1.2-4.9) X10*3/uL Nye # (Auto) 2.0 H (0.1-1.2) X10*3/uL Eos # (Auto) 0.0 (0.0-0.4) X10*3/uL Baso # (Auto) 0.1 (0.0-0.2) X10*3/uL Abs Immat Gran (auto) 0.05 H (0.00-0.03) X10*3/uL Absolute Neuts (auto) 11.8 H (2.0-8.3) x10*3/uL Absolute Nucleated RBC 0.000 (0.0-0.012) X10*3/uL Nucleated RBC % (auto) 0.0 (0.0-0.2) /100WBC Smear Tech's Comments VERIFIED ESR 38 H (0-15) MM/HR PT 12.3 (11.1-13.3) SEC INR 1.0 (0.9-1.1) APTT 30.9 (26.0-36.4) SEC Sodium 138 (135-145) mmol/L Potassium 4.1 (3.3-5.1) mmol/L Chloride 106 (96-108) mmol/L Carbon Dioxide 24 (22-29) mmol/L Anion Gap 12 (12-20) BUN 27 H (9-16) mg/dL Creatinine 2.44 H (0.5-1.4) mg/dL Estim Creat Clear Calc 31.5 Estimated GFR 27 Random Glucose 187 H (60-115) mg/dL Lactic Acid 1.6 (0.5-2.0) mmol/L Calcium 9.4 (8.4-10.2) mg/dL Magnesium 2.0 (1.6-2.6) mg/dL Total Bilirubin 0.8 (0.0-1.0) mg/dL AST 138 H (5-37) U/L ALT 42 H (0-40) U/L Alkaline Phosphatase 60 (39-117) U/L Troponin I High Sens 56363.7 H* (<3.5-35.0) ng/L C-Reactive Protein 8.11 H (< or = 0.50) mg/dL B-Natriuretic Peptide 141 H (<100) pg/mL Total Protein 8.0 (6.5-8.0) g/dL Albumin 4.3 (3.5-5.0) g/dL Influenza Type A (PCR) NEGATIVE (Negative) Influenza Type B (PCR) NEGATIVE (Negative) RSV RNA Qual (PCR) NEGATIVE (Negative) SARS-CoV-2 RNA (RT-PCR) NEGATIVE (Negative) Independent Interpretation I performed an independent interpretation of an: EKG Interpretation: My interpretation of EKG: Sinus tachycardia, heart rate 101, no ST segment depression elevation, no T-wave inversion, QTC 435 Critical Care Time Critical Care Time Critical Care Time: Yes Total Critical Care Time: 90 Attestation: I have personally provided critical care time. Time includes review of lab data, radiology results, discussion with consultants, and monitoring for potential decompensation. Intervention performed as documented. Discharge Plan Discharge Clinical Impression: Myocarditis Patient Disposition: [facility] Hospital Transfer Details: [facility] going to inpatient floor Prescriptions: No Action atorvastatin 80 mg tablet 80 mg PO DAILY 90 Days Qty: 90 3RF isosorbide mononitrate 30 mg tablet extended release 24 hr 30 mg PO DAILY Qty: 30 3RF icosapent ethyl [Vascepa] 1 gram capsule 2 g PO BID 90 Days Qty: 360 3RF ranolazine 500 mg tablet extended release 12 hr 500 mg PO Q12H Qty: 60 3RF tramadol 50 mg tablet 50 mg PO Q8H PRN (Reason: pain) Qty: 20 0RF losartan 25 mg tablet 25 mg PO DAILY carvedilol 12.5 mg tablet 12.5 mg PO BID folic acid 1 mg tablet 1 mg PO DAILY aspirin [Pilar Low Dose Aspirin] 81 mg tablet,delayed release (DR/EC) 81 mg PO DAILY tizanidine 4 mg capsule 4 mg PO BEDTIME PRN (DME) OneTouch Ultra Test Strip See Rx Instructions .ROUTE BID Qty: 10 Rx Instructions: As directed allopurinol 100 mg tablet 100 mg PO DAILY ondansetron 4 mg tablet,disintegrating 4 mg PO Q8H gabapentin 100 mg capsule 100 mg PO BID 30 Days Qty: 60 2RF Farxiga 10 mg tablet 10 mg PO DAILY 30 Days Qty: 30 3RF insulin glargine [Lantus Solostar U-100 Insulin] 100 unit/mL (3 mL) insulin pen subcut amlodipine 10 mg tablet 10 mg PO DAILY hydroxyzine HCl 50 mg tablet 50 mg PO DAILY PRN (Reason: anxiety)
[2023-04-10 14:30] LABS: Basophils Absolute Auto 0.1 X10*3/uL (0.0-0.2); Basophils Percent Auto 0.3 % (0-2); Eosinophils Percent Auto 0.1 % (0-4); Hemoglobin 12.5 g/dl (14.0-18.0); Imm Gran Abs Auto 0.05 X10*3/uL (0.00-0.03); Imm Gran Pct Auto 0.3 % (0.0-0.4); Lymphocytes Absolute Auto 2.1 X10*3/uL (1.2-4.9); MANUAL DIFF FLAG SCAN; Mean Corpuscular HGB Conc 32.9 g/dl (31.0-36.0); Mean Corpuscular Hemoglobin 30.2 pg (27.0-33.0); Mean Corpuscular Volume 91.8 fL (80.0-98.0); Mean Platelet Volume 9.8 fL (9.4-12.4); Monocytes Percent Auto 12.4 % (2-11); Neutrophils Absolute Auto 11.8 x10*3/uL (2.0-8.3); Neutrophils Percent Auto 73.9 % (45-73); Platelet Count 322 X10*3/uL (160-400); Red Blood Count 4.14 X10*6/uL (4.60-5.80); Red Cell Distribution Width 13.9 % (11.0-16.0); SCAN SMEAR FLAG 1
[2023-04-10 14:35] LABS: Prothrombin Time 12.3 SEC (11.1-13.3)
[2023-04-10 14:37] LABS: Partial Thromboplastin Time 30.9 SEC (26.0-36.4)
[2023-04-10 14:44] LABS: Alanine Aminotransferase 42 U/L (0-40); Albumin Level 4.3 g/dL (3.5-5.0); Alkaline Phosphatase 60 U/L (39-117); Anion Gap 12 (12-20); Aspartate Amino Transferase 138 U/L (5-37); Bilirubin Total 0.8 mg/dL (0.0-1.0); Blood Urea Nitrogen 27 mg/dL (9-16); Calcium 9.4 mg/dL (8.4-10.2); Carbon Dioxide 24 mmol/L (22-29); Chloride 106 mmol/L (96-108); Creatinine Clr Calc Pharmacy 31.5; Estimated Glomerular Filt Rate 27; Glucose Random 187 mg/dL (60-115); Potassium 4.1 mmol/L (3.3-5.1); Sodium 138 mmol/L (135-145)
[2023-04-10 15:07] LABS: Influenza A PCR NEGATIVE (Negative); Influenza B PCR NEGATIVE (Negative); Resp Syncy Virus RNA Qual PCR NEGATIVE (Negative); SARS COV2 PCR INHOUSE NEGATIVE (Negative); SLIDE REVIEW VERIFIED
[2023-04-10 15:36] VITALS: BP 151/84; PULSE 109; RESP 20; TEMP 37.8; O2SAT 96
[2023-04-10 16:07] LABS: C Reactive Protein 8.11 mg/dL (< or = 0.50)
--- NOTE | 2023-04-10 16:07 | PC.NURSE ---
coming from waiting room for elevated troponin. repeat ekg obtained, iv established. was found to be febrile, obtaining cultures as well.
[2023-04-10] MEDS: Heparin Sodium,Porcine/1/2NS 25,000 UNIT/250 ML IV.SOLN 11.97 UNIT IVCONT (16:13)
--- NOTE | 2023-04-10 16:15 | PC.NURSE ---
bilateral IV's in patients hand. heparin infusing at dose rate of 14u/kg/hr
[2023-04-10 16:16] VITALS: BP 153/79; PULSE 103; RESP 16; O2SAT 95
[2023-04-10 16:16] LABS: Lactic Acid 1.6 mmol/L (0.5-2.0)
[2023-04-10 16:19] LABS: B Type Natriuretic Peptide 141 pg/mL (<100)
[2023-04-10] MEDS: Acetaminophen 325 MG TABLET 650 MG PO (16:28)
[2023-04-10 16:29] VITALS: BP 145/78; PULSE 108
[2023-04-10] MEDS: Nitroglycerin 0.4 MG TAB.SUBL SUBLINGUAL ×2 (16:29→17:21)
[2023-04-10 16:37] LABS: Erythrocyte Sedimentation Rate 38 MM/HR (0-15)
[2023-04-10 17:21] VITALS: BP 134/73; PULSE 105
--- NOTE | 2023-04-10 18:30 | PC.NURSE ---
patient sleeping in room. still awaiting bed assignment from [facility] at this time
== END 2023-04-10 19:12 | disposition short-term general hospital (02) ==
PROVIDERS: Physician Assistant Medical; Emergency Provider Emergency Medicine
DX: I51.4 Myocarditis, unspecified (principal); R00.0 Tachycardia, unspecified; R50.9 Fever, unspecified; Z20.822 Contact with and (suspected) exposure to COVID-19; Z20.828 Contact with and (suspected) exposure to other viral communicable diseases; E11.22 Type 2 diabetes mellitus with diabetic chronic kidney disease; I12.9 Hypertensive chronic kidney disease with stage 1 through stage 4 chronic kidney disease, or unspecified chronic kidney disease; N18.9 Chronic kidney disease, unspecified; Z79.82 Long term (current) use of aspirin; Z79.4 Long term (current) use of insulin; Z79.899 Other long term (current) drug therapy
CPT/HCPCS: 0241U; 36415; 71046; 80053; 83605; 83735; 83880; 84484; 85025; 85610; 85652; 85730; 86140; 87040; 93005; 96374; 99285; J1643

== ENCOUNTER 2023-04-20 11:31 | Outpatient (REF) | payer OTHER, SELFPAY ==
[2023-04-20 13:30] LABS: MANUAL DIFF FLAG NO
[2023-04-20 13:34] LABS: Basophils Absolute Auto 0.1 X10*3/uL (0.0-0.2); Eosinophils Absolute Auto 0.3 X10*3/uL (0.0-0.4); Eosinophils Percent Auto 3.5 % (0-4); Hematocrit 33.7 % (42.0-52.0); Hemoglobin 10.9 g/dl (14.0-18.0); Imm Gran Abs Auto 0.04 X10*3/uL (0.00-0.03); Imm Gran Pct Auto 0.5 % (0.0-0.4); Lymphocytes Absolute Auto 1.8 X10*3/uL (1.2-4.9); Lymphocytes Percent Auto 22.9 % (20-40); Mean Corpuscular HGB Conc 32.3 g/dl (31.0-36.0); Mean Corpuscular Hemoglobin 30.2 pg (27.0-33.0); Mean Corpuscular Volume 93.4 fL (80.0-98.0); Mean Platelet Volume 11.1 fL (9.4-12.4); Monocytes Absolute Auto 0.7 X10*3/uL (0.1-1.2); Monocytes Percent Auto 8.2 % (2-11); Neutrophils Absolute Auto 5.1 x10*3/uL (2.0-8.3); Neutrophils Percent Auto 63.9 % (45-73); Platelet Count 453 X10*3/uL (160-400); Red Blood Count 3.61 X10*6/uL (4.60-5.80); Red Cell Distribution Width 13.6 % (11.0-16.0); White Blood Count 7.9 X10*3/uL (4.8-10.8)
[2023-04-20 13:42] LABS: Anion Gap 13 (12-20); Blood Urea Nitrogen 37 mg/dL (9-16); C Reactive Protein 2.25 mg/dL (< or = 0.50); Calcium 9.1 mg/dL (8.4-10.2); Carbon Dioxide 21 mmol/L (22-29); Chloride 109 mmol/L (96-108); Estimated Glomerular Filt Rate 25; Glucose Random 158 mg/dL (60-115); Potassium 5.3 mmol/L (3.3-5.1); Sodium 138 mmol/L (135-145)
[2023-04-20 14:12] LABS: Erythrocyte Sedimentation Rate 88 MM/HR (0-15)
== END 2023-04-20 11:32 | disposition home or self-care (01) ==
LOC: HO.HHCL 11:31
PROVIDERS: Visit Provider Nurse Practitioner Family
DX: I25.10 Atherosclerotic heart disease of native coronary artery without angina pectoris (principal); N18.9 Chronic kidney disease, unspecified; I31.9 Disease of pericardium, unspecified
CPT/HCPCS: 36415; 80048; 85025; 85652; 86140

== ENCOUNTER 2023-05-10 10:13 | Outpatient (REF) | payer OTHER, SELFPAY ==
[2023-05-10 11:24] LABS: MANUAL DIFF FLAG NO
[2023-05-10 11:44] LABS: Basophils Absolute Auto 0.1 X10*3/uL (0.0-0.2); Eosinophils Absolute Auto 0.4 X10*3/uL (0.0-0.4); Eosinophils Percent Auto 5.5 % (0-4); Hematocrit 35.2 % (42.0-52.0); Hemoglobin 11.5 g/dl (14.0-18.0); Imm Gran Abs Auto 0.02 X10*3/uL (0.00-0.03); Imm Gran Pct Auto 0.3 % (0.0-0.4); Lymphocytes Absolute Auto 2.7 X10*3/uL (1.2-4.9); Lymphocytes Percent Auto 38.3 % (20-40); Mean Corpuscular HGB Conc 32.7 g/dl (31.0-36.0); Mean Corpuscular Hemoglobin 31.1 pg (27.0-33.0); Mean Corpuscular Volume 95.1 fL (80.0-98.0); Mean Platelet Volume 10.7 fL (9.4-12.4); Monocytes Absolute Auto 0.7 X10*3/uL (0.1-1.2); Neutrophils Absolute Auto 3.2 x10*3/uL (2.0-8.3); Neutrophils Percent Auto 44.9 % (45-73); Platelet Count 261 X10*3/uL (160-400); Red Cell Distribution Width 14.4 % (11.0-16.0); White Blood Count 7.1 X10*3/uL (4.8-10.8)
[2023-05-10 12:22] LABS: Anion Gap 12 (12-20); Blood Urea Nitrogen 30 mg/dL (9-16); C Reactive Protein < 0.10 mg/dL (< or = 0.50); Carbon Dioxide 28 mmol/L (22-29); Chloride 107 mmol/L (96-108); Estimated Glomerular Filt Rate 26; Glucose Random 99 mg/dL (60-115); Potassium 4.4 mmol/L (3.3-5.1); Sodium 143 mmol/L (135-145)
== END 2023-05-10 10:14 | disposition home or self-care (01) ==
LOC: HO.HHCL 10:13
PROVIDERS: Visit Provider Internal Medicine Geriatric Medicine
DX: I21.4 Non-ST elevation (NSTEMI) myocardial infarction (principal); E11.9 Type 2 diabetes mellitus without complications; I25.5 Ischemic cardiomyopathy; I31.9 Disease of pericardium, unspecified; N17.9 Acute kidney failure, unspecified; Z95.5 Presence of coronary angioplasty implant and graft; Z79.4 Long term (current) use of insulin
CPT/HCPCS: 36415; 80048; 85025; 86140

== ENCOUNTER 2023-06-06 14:43 | Outpatient (REF) | payer OTHER, SELFPAY | END 2023-06-06 14:44 | disposition home or self-care (01) | LOC: HO.HHCL 14:43 | PROVIDERS: Visit Provider Nurse Practitioner Family | DX: E56.9 Vitamin deficiency, unspecified (principal) | CPT/HCPCS: 36415; 82306; 82607; 82746; 83540 ==

== ENCOUNTER 2023-07-31 08:28 | Outpatient (REF) | payer OTHER, SELFPAY ==
[2023-07-31 08:49] LABS: MANUAL DIFF FLAG NO
[2023-07-31 09:31] LABS: Basophils Absolute Auto 0.1 X10*3/uL (0.0-0.2); Basophils Percent Auto 1.1 % (0-2); Eosinophils Absolute Auto 0.3 X10*3/uL (0.0-0.4); Eosinophils Percent Auto 4.2 % (0-4); Hematocrit 38.8 % (42.0-52.0); Hemoglobin 12.7 g/dl (14.0-18.0); Imm Gran Abs Auto 0.02 X10*3/uL (0.00-0.03); Imm Gran Pct Auto 0.3 % (0.0-0.4); Lymphocytes Percent Auto 30.7 % (20-40); Mean Corpuscular HGB Conc 32.7 g/dl (31.0-36.0); Mean Corpuscular Hemoglobin 30.6 pg (27.0-33.0); Mean Corpuscular Volume 93.5 fL (80.0-98.0); Monocytes Absolute Auto 0.5 X10*3/uL (0.1-1.2); Monocytes Percent Auto 8.2 % (2-11); Neutrophils Absolute Auto 3.7 x10*3/uL (2.0-8.3); Neutrophils Percent Auto 55.5 % (45-73); Platelet Count 320 X10*3/uL (160-400); Red Blood Count 4.15 X10*6/uL (4.60-5.80); Red Cell Distribution Width 14.6 % (11.0-16.0); White Blood Count 6.6 X10*3/uL (4.8-10.8)
[2023-07-31 09:34] LABS: Appearance Urine Clear; Color Urine Yellow; Glucose Urine UA >=1000 mg/dL (Negative); Leukocyte Esterase Urine Negative (Negative); Nitrite Urine Negative (Negative); PH 7.5 (5.0-9.0); UMIC TRIGGER UA YES; Urine Blood Negative (Negative); Urine Ketones Negative (Negative); Urine Protein Trace mg/dL (Neg-Trace)
[2023-07-31 09:52] LABS: Bacteria Urine None Seen (None Seen); Hyaline Casts Urine 0-2 /LPF (0-2); RBC Urine 0-2 /HPF (0-2); Squamous Epithelial Cell Urine 0-2 /HPF (0-2); WBC Urine 0-5 /HPF (0-5)
[2023-07-31 10:39] LABS: Creatinine Urine 72.96 mg/dL; Microalbum/Creatinine Ratio Ur 64.4 ug/mg cr (<30); Protein/Creatinine Ratio, Ur 0.16 (<0.2); Total Protein Urine Random 12 mg/dL (<12)
[2023-07-31 11:41] LABS: Albumin Level 4.1 g/dL (3.5-5.0); Anion Gap 13 (12-20); Blood Urea Nitrogen 24 mg/dL (9-16); Calcium 9.4 mg/dL (8.4-10.2); Carbon Dioxide 28 mmol/L (22-29); Chloride 104 mmol/L (96-108); Estimated Glomerular Filt Rate 32; Phosphorus 2.9 mg/dL (2.7-4.5); Potassium 4.9 mmol/L (3.3-5.1); Sodium 140 mmol/L (135-145); Vitamin D 25-OH Total 30.7 ng/mL (>30)
[2023-08-01 05:44] LABS: Parathyroid Hormone Intact 83.5 pg/mL (8.7-77.1)
== END 2023-07-31 08:29 | disposition home or self-care (01) ==
LOC: HO.LAB 08:28
PROVIDERS: PCP Nurse Practitioner Family; Visit Provider Internal Medicine Nephrology
DX: E11.22 Type 2 diabetes mellitus with diabetic chronic kidney disease (principal); I12.9 Hypertensive chronic kidney disease with stage 1 through stage 4 chronic kidney disease, or unspecified chronic kidney disease; N18.4 Chronic kidney disease, stage 4 (severe); N25.0 Renal osteodystrophy; I25.10 Atherosclerotic heart disease of native coronary artery without angina pectoris; Z79.899 Other long term (current) drug therapy
CPT/HCPCS: 36415; 80051; 81001; 82040; 82043; 82306; 82310; 82565; 82570; 83735; 83970; 84100; 84156; 84520; 85025; 93005; 99212

== ENCOUNTER 2023-07-31 08:57 | Outpatient (AMB) | payer OTHER, SELFPAY ==
--- NOTE | 2023-07-31 09:23 | MHC.OFFVIS ---
Intake Vital Signs 07/31/23 09:24 Height 5 ft 5 in Weight 189 lb 9.561 oz BMI 31.5 BP 138/76 Blood Pressure Location Rt brachial Position Sitting Pulse 86 Intake Visit Reasons: 6 mth f/up Intake Note: 6 month follow-up feeling good Direct Care Specialist Required: No Direct Care Specialist Name: [facility] [place] Direct Care Specialist Allergies No Known Allergies Allergy (Verified 05/08/23 07:23) Medication List - Last Reconciled 07/31/23 by Tl Jones MD allopurinol 100 mg PO DAILY amlodipine 10 mg PO DAILY aspirin (Pilar Low Dose Aspirin) 81 mg PO DAILY atorvastatin 80 mg PO DAILY 90 days blood sugar diagnostic (Medivo Ultra Test strips) As directed carvedilol 12.5 mg PO BID colchicine 0.3 mg PO DAILY dapagliflozin propanediol (Farxiga) 10 mg PO DAILY 30 days folic acid 1 mg PO DAILY furosemide 40 mg PO DAILY gabapentin 100 mg PO BID 30 days hydroxyzine HCl 50 mg PO DAILY PRN icosapent ethyl (Vascepa) 2 grams (2 x 1 gram) PO BID 90 days insulin glargine (Lantus Solostar U-100 Insulin) units subcut isosorbide mononitrate ER 30 mg PO DAILY losartan 25 mg PO DAILY ondansetron 4 mg PO Q8H ranolazine ER 500 mg PO Q12H ticagrelor (Brilinta) 90 mg PO BID tizanidine 4 mg PO BEDTIME PRN tramadol 50 mg PO Q8H PRN HPI HPI Comments History of Present Illness Details Efrain comes for follow-up after April when he was admitted with prolonged chest pain and then elevated markers consistent with NSTEMI. He was subsequently transferred to [facility] very underwent a cardiac catheterization and underwent drug-eluting stent placement to the OM 2 branch for InStent restenosis and subacute thrombus. Due to edge restenosis he underwent overlapping stent placement. Since then he is done well and is currently not having any anginal symptoms including with exercise. He is currently participating at [facility] for phase 2 cardiac rehabilitation. Currently taking dual antiplatelet therapy. He is currently taking triple antianginal therapy. His blood pressures been well controlled. During the NSTEMI was noted to have low EF of 40-45%. No repeat studies have been performed. He denies any heart failure symptoms. Takes all his medications. [facility] Medical History ACS (acute coronary syndrome) Diabetic retinopathy Diabetes Hypertension CKD (chronic kidney disease) Exertional chest pain Smoker Surgical History Stented coronary artery Hx of cardiac catheterization Family History Mother No problems noted. Father No problems noted. Social History e-Cigarette/Vaping Use: Never Used Current occupational status: unemployed Cognitive needs: No Hearing needs: No Vision needs: Yes (wears glasses) Review of Systems Const Denies chills, Denies fatigue, Denies fever(s), Denies frequent falls, Denies weakness, Denies weight gain and Denies weight loss ENT Denies dizziness Card Denies chest pain, Denies leg edema, Denies lightheadedness, Denies palpitations, Denies dyspnea, Denies dyspnea on exertion, Denies orthopnea and Denies other (loss of consciousness) Resp Denies cough, Denies dyspnea and Denies dyspnea on exertion GI Denies hematochezia and Denies change in stool character Musc Denies abnormal gait, Denies muscle weakness, Denies numbness, Denies radiating pain into limb and Denies tingling Neuro Denies Abnormal speech present, Denies abnormal gait, Denies dizziness, Denies frequent falls, Denies numbness, Denies tingling and Denies weakness Endo Denies fatigue and Denies palpitations Physical Exam Vital Signs: Last Vital Signs Pulse 86 07/31/23 09:24 BP 138/76 07/31/23 09:24 BMI result Body Mass Index 31.5 Const General: cooperative, comfortable, no acute distress, well developed, alert, awake, anxious and well groomed Nutritional Appearance: well nourished and overweight Orientation/consciousness: patient oriented x3 Limitations: no limitations Neck Neck: Yes trachea midline, Yes supple and Yes no JVD Carotids: no bruits Resp Effort & Inspection: normal respiratory effort Auscultation: clear to auscultation bilaterally Cardio Jugular venous distension: no JVD Palpation: normal PMI Rate: regular rate Rhythm: regular rhythm Heart sounds: S1 normal heart sound present, S2 normal heart sound present, no click, no gallops, no murmurs and no rubs Neuro General: patient oriented x3 and no focal motor deficits Speech: No Abnormal speech present Extrem General: No clubbing, No cyanosis and Yes edema (One to 2+) Office Procedures EKG Details: EKG shows normal sinus rhythm with diffuse T-wave inversions in lead 3 and AVF as well as V5 and V6 probably from prior [place] along with some ST take off in high lateral leads [id number], Complete Assessment & Plan Assessment & Plan (1) CAD (coronary artery disease): Code(s): I25.10 - Atherosclerotic heart disease of [place] coronary artery without angina pectoris Plan: CAD with acute coronary syndrome in April with NSTEMI with low EF. Had significant obstructive disease in the OM2 branch in the area of prior stented segment in [place]. Patient underwent drug-eluting stent placement there. Since then his anginal symptoms have resolved. He also had subacute thrombosis at that time. He is currently on dual antiplatelet therapy and I would strongly recommend him to be on prolonged dual antiplatelet therapy for 30 months. Continue aggressive risk factor modification with target goal LDL closer to 60 mg/dL. He should have a lipid panel in near future. Continue aggressive blood pressure control, see below. Continue maintain activity level as tolerated. Follow-up limited echocardiogram near future to assess for resolution of LV systolic dysfunction. There is no current indication for Ranexa therapy with this will be discontinued. In the next visit if he has continued no significant symptoms will discontinue isosorbide therapy as well. (2) Hypertension: Code(s): I10 - Essential (primary) hypertension Plan: Hypertension which is currently well optimized. Continue current therapy. Importance of good blood pressure control was discussed. Also advised continue aggressive diabetes control goal hemoglobin A1c less than 7%. Will follow up in the clinic in 6 months time, sooner p.r.n.. Thank you for allowing me to partake in his care Orders: Orders Lipid Panel Today I25.10 - Atherosclerotic heart disease of [place] coronary artery without angina pectoris CA echo limited Today I25.10 - Atherosclerotic heart disease of [place] coronary artery without angina pectoris Medications: Discontinued ranolazine ER Discontinued Reason: No Longer Medically Relevant 500 mg PO Q12H 60 tabs 3RF Coding Level of Care Code Est Pt Level 4 (87961) Diagnoses CAD (coronary artery disease) I25.10 Hypertension I10 CPT Codes EKG - CPT: 40685-[id number], Complete ([id number])
[2023-07-31 09:24] VITALS: BP 138/76; PULSE 86; BMI 31.5
== END 2023-07-31 09:53 | disposition home or self-care (01) ==
PROVIDERS: PCP Family Medicine; Visit Provider Internal Medicine Cardiovascular Disease
DX: I25.10 Atherosclerotic heart disease of native coronary artery without angina pectoris (principal); I10 Essential (primary) hypertension
CPT/HCPCS: 93010; 99214

== ENCOUNTER 2023-08-09 08:35 | Outpatient (REF) | payer OTHER, SELFPAY ==
[2023-08-09 10:40] LABS: Cholesterol 141 mg/dL (<200); HDL Cholesterol 24 mg/dL (>40); LDL Cholesterol Calculated 90 mg/dL (<100); Triglycerides 135 mg/dL (<150)
== END 2023-08-09 08:36 | disposition home or self-care (01) ==
LOC: HO.LAB 08:35
PROVIDERS: Absent Provider Nurse Practitioner Family; PCP Nurse Practitioner Family; Visit Provider Internal Medicine Cardiovascular Disease
DX: E78.2 Mixed hyperlipidemia (principal)
CPT/HCPCS: 36415; 80061

== ENCOUNTER → 2023-08-24 08:32 | Outpatient (REF) | payer OTHER, SELFPAY ==
--- NOTE | 2023-08-24 08:35 | CA_ITS ---
Transthoracic Echocardiogram Patient (Last, First, Middle): Efrain Dewitt, Gender: Male Date of : 1960 Age: 62 Procedure Date: 08/24/2023 Procedure Type: Transthoracic Echocardiogram Location: OP Height: 165.1 cm Weight: 83.92 kg BSA: 1.91 m2 Heart Rate: bpm BP: 122 / 80 mmHg Maintainer Central Office: Referring MD: Tl Jones MD Symptoms: I25.10 - Atherosclerotic heart disease of [place] coronary artery without... Study Quality: Good ECG Rhythm: Sinus Conclusions: - The left ventricular systolic function is mildly decreased. The calculated ejection fraction is 51% by biplane method. - The inferolateral wall, the mid inferior, and mid anterolateral segments are hypokinetic. - The basal inferior segment is akinetic. Findings Left Ventricle Normal left ventricular cavity size. There is moderately increased left ventricular wall thickness. The left ventricular systolic function is mildly decreased. The calculated ejection fraction is 51% by biplane method. There is evidence of regional wall motion abnormalities. Wall Motion Rest Echo Findings The inferolateral wall, the mid inferior, and mid anterolateral segments are hypokinetic. The basal inferior segment is akinetic. Venous The inferior vena cava is normal in size and collapses greater than 50% with inspiration. Prior Study Comparison Changes noted compared to prior study dated: 10/16/2022. see comment on LVEF/wall motion. Measurements 2D Linear Measurements IVSd: 1.38 0.6-0.9/0.6-1.0 cm LVIDd: 4.96 3.9-5.3/4.2-5.9 cm LVIDd Index: 2.60 2.4-3.2/2.2-3.1 cm/m2 LVIDs: 3.48 2.0-3.6 cm LVPWd: 1.31 0.7-1.1 cm LV Mass: 338.70 67-162/88-224 g LV Mass Index: 177.33 43-95/49-115 g/m2 LVOT Diam: 2.00 3.0+(-)1.3 cm 2D Systolic Function EF 4C: 53.40 >55% EF 2C: 51.90 >55% EF BiP: 50.70 >55% LVOT LVOT Pk Marcos: 0.79 LVOT Mn Marcos: 0.53 LVOT VTI: 0.17 LVOT Pk Grad: 2.00 LVOT Mn Grad: 1.00 LVOT Diam: 2.00 LVOT Area: 3.14 Updated in Other Vendor System with Status of Final Raman Veras MD electronically signed on 08/26/2023 11:44:47 AM with status of Final
== END ==
LOC: HO.CARD 08:32
PROVIDERS: PCP Nurse Practitioner Family; Visit Provider Internal Medicine Cardiovascular Disease
DX: I25.10 Atherosclerotic heart disease of native coronary artery without angina pectoris (principal)
CPT/HCPCS: 93308

== ENCOUNTER → 2023-08-24 08:35 | Outpatient (BNV) | payer OTHER, SELFPAY | PROVIDERS: PCP Nurse Practitioner Family; Visit Provider Internal Medicine | DX: I25.10 Atherosclerotic heart disease of native coronary artery without angina pectoris (principal) | CPT/HCPCS: 93308 ==

== ENCOUNTER 2023-11-29 08:51 | Outpatient (REF) | payer OTHER, SELFPAY ==
[2023-11-29 12:17] LABS: Alanine Aminotransferase 26 U/L (0-40); Albumin Level 4.2 g/dL (3.5-5.0); Alkaline Phosphatase 69 U/L (39-117); Anion Gap 13 (12-20); Aspartate Amino Transferase 26 U/L (5-37); Bilirubin Total 0.5 mg/dL (0.0-1.0); Blood Urea Nitrogen 28 mg/dL (9-16); Calcium 9.3 mg/dL (8.4-10.2); Carbon Dioxide 25 mmol/L (22-29); Chloride 106 mmol/L (96-108); Estimated Glomerular Filt Rate 27; Glucose Random 196 mg/dL (60-115); Magnesium 2.2 mg/dL (1.6-2.6); Potassium 5.2 mmol/L (3.3-5.1); Sodium 139 mmol/L (135-145); Total Protein 7.5 g/dL (6.5-8.0)
[2023-11-29 12:37] LABS: TSH reflex Free T4 1.99 uIU/mL (0.32-4.0)
== END 2023-11-29 08:52 | disposition home or self-care (01) ==
LOC: HO.HHCL 08:51
PROVIDERS: Visit Provider Student in an Organized Health Care Education/Training Program
DX: R25.2 Cramp and spasm (principal)
CPT/HCPCS: 36415; 80053; 83735; 84443

== ENCOUNTER 2023-12-07 13:19 | Outpatient (REF) | payer OTHER, SELFPAY ==
[2023-12-07 16:20] LABS: Alanine Aminotransferase 21 U/L (0-40); Albumin Level 4.3 g/dL (3.5-5.0); Alkaline Phosphatase 58 U/L (39-117); Anion Gap 14 (12-20); Aspartate Amino Transferase 22 U/L (5-37); Bilirubin Total 0.4 mg/dL (0.0-1.0); Blood Urea Nitrogen 29 mg/dL (9-16); Calcium 9.7 mg/dL (8.4-10.2); Carbon Dioxide 26 mmol/L (22-29); Chloride 105 mmol/L (96-108); Estimated Glomerular Filt Rate 29; Glucose Random 226 mg/dL (60-115); Potassium 4.8 mmol/L (3.3-5.1); Sodium 140 mmol/L (135-145); Total Protein 7.8 g/dL (6.5-8.0)
== END 2023-12-07 13:20 | disposition home or self-care (01) ==
LOC: HO.HHCL 13:19
PROVIDERS: Visit Provider Student in an Organized Health Care Education/Training Program
DX: E78.5 Hyperlipidemia, unspecified (principal)
CPT/HCPCS: 36415; 80053

== ENCOUNTER 2024-01-01 11:08 | Outpatient (REF) | payer OTHER, SELFPAY ==
[2024-01-01 13:57] LABS: Creatinine Urine 98.37 mg/dL; Microalbum/Creatinine Ratio Ur 28.4 ug/mg cr (<30)
[2024-01-01 14:37] LABS: Anion Gap 16 (12-20); Blood Urea Nitrogen 39 mg/dL (9-16); Calcium 9.8 mg/dL (8.4-10.2); Carbon Dioxide 22 mmol/L (22-29); Chloride 106 mmol/L (96-108); Estimated Glomerular Filt Rate 25; Glucose Random 97 mg/dL (60-115); Potassium 4.9 mmol/L (3.3-5.1); Sodium 139 mmol/L (135-145)
== END 2024-01-01 11:09 | disposition home or self-care (01) ==
LOC: HO.HHCL 11:08
PROVIDERS: Visit Provider Nurse Practitioner Family
DX: R25.2 Cramp and spasm (principal); E11.9 Type 2 diabetes mellitus without complications; Z79.4 Long term (current) use of insulin
CPT/HCPCS: 36415; 80048; 82043; 82570

== ENCOUNTER 2024-01-22 09:41 | Outpatient (AMB) | payer OTHER, SELFPAY ==
--- NOTE | 2024-01-22 09:50 | A.OFFVIS_ITS ---
Vital Signs 01/22/24 09:51 Height 5 ft 5 in Weight 191 lb 12.835 oz BMI 31.9 BP 122/62 Blood Pressure Location Rt brachial Position Sitting Pulse 88 Pulse Source Pulse Oximeter Intake Visit Reasons: 6 mth f/up Information Security Manager Required: Yes Information Security Manager Name: [id number] Allergies No Known Allergies Allergy (Verified 05/08/23 07:23) Medication List - Last Reconciled 01/22/24 by Tl Jones MD amlodipine 10 mg PO DAILY ascorbic acid (vitamin C) (Vitamin C) 500 mg PO DAILY aspirin (Pilar Low Dose Aspirin) 81 mg PO DAILY atorvastatin 80 mg PO DAILY 90 days blood sugar diagnostic ([employer] Ultra Test strips) As directed carvedilol 12.5 mg PO BID colchicine 0.3 mg PO DAILY dapagliflozin propanediol (Farxiga) 10 mg PO DAILY 30 days ezetimibe (Zetia) 10 mg PO DAILY ferrous sulfate (FeroSul) mg PO folic acid 1 mg PO DAILY furosemide 40 mg PO DAILY gabapentin 300 mg PO BID icosapent ethyl (Vascepa) 2 grams (2 x 1 gram) PO BID 90 days insulin glargine (Lantus Solostar U-100 Insulin) units subcut isosorbide mononitrate ER 30 mg PO DAILY losartan 25 mg PO DAILY ticagrelor (Brilinta) 90 mg PO BID tramadol 50 mg PO Q8H PRN HPI Comments Details: Efrain comes for follow-up. History obtained with help of sales order coordinator. Patient says that intermittently at rest he gets short of breath. He said he was in the emergency room and due to leg cramps and was prescribed sodium polystyrene, was told that he had high potassium. He is seeing Nephrology in March. He denies any exertional chest pain or shortness of breath. Denies any lightheadedness, syncope. Denies any orthopnea, PND, leg edema. PFSH Medical History ACS (acute coronary syndrome) Diabetic retinopathy Diabetes Hypertension CKD (chronic kidney disease) Exertional chest pain Smoker Surgical History Stented coronary artery Hx of cardiac catheterization Family History Mother No problems noted. Father No problems noted. Social History e-Cigarette/Vaping Use: Never Used Current occupational status: unemployed Cognitive needs: No Hearing needs: No Vision needs: Yes (wears glasses) Review of Systems Const Denies weakness ENT Denies dizziness Card Denies chest pain, Denies chest pain with activity, Denies syncope, Denies rapid heart rate, Denies pedal edema, Denies edema, Denies leg edema, Denies lightheadedness, Denies palpitations, Denies dyspnea, Denies dyspnea on exertion and Denies orthopnea Resp Denies cough, Denies dyspnea and Denies dyspnea on exertion GI Denies hematochezia and Denies change in stool character Musc Denies abnormal gait, Denies muscle cramps, Denies muscle weakness, Denies numbness, Denies radiating pain into limb and Denies tingling Neuro Denies Abnormal speech present, Denies abnormal gait, Denies dizziness, Denies syncope, Denies numbness, Denies tingling and Denies weakness Endo Denies palpitations Physical Exam Vital Signs: Last Vital Signs Pulse 88 01/22/24 09:51 BP 122/62 01/22/24 09:51 BMI result Body Mass Index 31.9 Const General: cooperative, comfortable, no acute distress, well developed, alert, awake, anxious and well groomed Nutritional Appearance: well nourished and overweight Orientation/consciousness: patient oriented x3 Limitations: no limitations Neck Neck: Yes trachea midline, Yes supple and Yes no JVD Carotids: no bruits Resp Effort & Inspection: normal respiratory effort Auscultation: clear to auscultation bilaterally Cardio Jugular venous distension: no JVD Palpation: normal PMI Rate: regular rate Rhythm: regular rhythm Heart sounds: S1 normal heart sound present, S2 normal heart sound present, no click, no gallops, no murmurs and no rubs Neuro General: patient oriented x3 and no focal motor deficits Speech: No Abnormal speech present Extrem General: No clubbing, No cyanosis and Yes edema (One to 2+) Assessment & Plan Assessment & Plan (1) CAD (coronary artery disease): Code(s): I25.10 - Atherosclerotic heart disease of [place] coronary artery without angina pectoris Category: Medical Plan: CAD with acute coronary syndrome in April last year followed by drug-eluting stent to OM2 branch of circumflex artery for InStent restenosis as well as subacute thrombus. I will continue with dual antiplatelet therapy uninterrupted till next 6 months and followed by prolonged dual antiplatelet therapy for 30 months with Brilinta to be reduced to 60 mg b.i.d.. Lifelong aspirin therapy. Importance of compliance with medication was discussed. Continue aggressive management diabetes as well as lipids. Continue current lipid therapy. Follow- up lipid panel in 6 months time. Target goal LDL closer to 50 mg/dL. Goal hemoglobin A1c less than 7%. Continue aggressive blood pressure control, see below. Will follow-up echocardiogram 6 months given his low normal LV ejection fraction. (2) Hypertension: Code(s): I10 - Essential (primary) hypertension Category: Medical Plan: Hypertension which is currently well optimized advised to monitor blood pressure at home maintain a log. Importance of compliance with medication was discussed. Continue current therapy. Advise low-salt diet. Advised to maintain blood pressure goal less than 130/84. Advised to maintain adequate hydration. Will follow up in the clinic in 6 months time, sooner p.r.n.. Thank you for allowing me to partake in his care Medications: Changed From gabapentin 100 mg PO BID 30 days 60 caps 2RF M54.50 - Low back pain, unspecified To gabapentin 300 mg PO BID M54.50 - Low back pain, unspecified Coding Level of Care Code Est Pt Level 4 (42208) Diagnoses CAD (coronary artery disease) I25.10 Hypertension I10
[2024-01-22 09:51] VITALS: BP 122/62; PULSE 88; BMI 31.9
== END 2024-01-22 10:20 | disposition home or self-care (01) ==
PROVIDERS: PCP Nurse Practitioner Family; Visit Provider Internal Medicine Cardiovascular Disease
DX: I25.10 Atherosclerotic heart disease of native coronary artery without angina pectoris (principal); I10 Essential (primary) hypertension
CPT/HCPCS: 99214

== ENCOUNTER → 2024-01-22 09:41 | Outpatient (BNVA) | payer OTHER, SELFPAY | PROVIDERS: PCP Nurse Practitioner Family; Visit Provider Internal Medicine Cardiovascular Disease | DX: I25.10 Atherosclerotic heart disease of native coronary artery without angina pectoris (principal); I10 Essential (primary) hypertension; Z95.5 Presence of coronary angioplasty implant and graft; Z98.890 Other specified postprocedural states | CPT/HCPCS: 99212 ==

== ENCOUNTER → 2024-02-22 09:54 | Outpatient (REF) | payer OTHER, SELFPAY ==
--- NOTE | 2024-02-22 09:59 | CA_ITS ---
Transthoracic Echocardiogram Patient (Last, First, Middle): Efrain Dewitt, Gender: Male Date of : 1960 Age: 63 Procedure Date: 02/22/2024 Procedure Type: Transthoracic Echocardiogram Location: OP Height: 165.1 cm Weight: 83.92 kg BSA: 1.91 m2 Heart Rate: 64 bpm BP: 134 / 80 mmHg Commercial Installer: Referring MD: Tl Jones MD Cabinet Abrasive Sandblaster: Tl Jones MD Symptoms: I25.10 - Atherosclerotic heart disease of [place] coronary artery without... Study Quality: Good ECG Rhythm: Sinus Conclusions: - 1. Moderately reduced LV ejection fraction 35-40% with grade 1 diastolic dysfunction with underlying regional wall motion abnormality consistent with ischemic cardiomyopathy 2. Normal cardiac valvular Dopplers 3. Normal RV systolic pressure 4. No gross pericardial effusion Findings Left Ventricle Normal left ventricular cavity size. There is mildly increased left ventricular wall thickness. The left ventricular systolic function is moderately decreased. The visually estimated ejection fraction is between 35 40%. Spectral Doppler is indicative of an impaired relaxation filling pattern. E/E prime ratio is <8, consistent with normal filling pressures. Evidence suggests grade I (mild) diastolic dysfunction. Wall Motion Rest Echo Findings The inferoseptal wall, the mid inferior, and mid inferolateral segments are hypokinetic. The basal inferior and basal inferolateral segments are akinetic. All other scored wall segments showed normal motion. Right Ventricle Normal right ventricular cavity size and systolic function. Atria The left atrium is likely dilated. The right atrium is normal in size. Aortic Valve Normal aortic valve structure and function. There is no aortic valve stenosis. There is no aortic valve regurgitation. Mitral Valve Normal mitral valve structure and function. There is trace mitral valve regurgitation. There is no mitral valve stenosis. Pulmonic Valve The pulmonic valve is likely normal. There is trace pulmonic valve regurgitation. Tricuspid Valve Normal tricuspid valve structure. There is trace tricuspid valve regurgitation. The right ventricular systolic pressure is normal. The right ventricular systolic pressure is 13 mmHg. Normal right atrial pressure. There is no evidence of pulmonary hypertension. Great Vessels All visible segments of the aorta are normal in size. The pulmonary artery was not well visualized. There is no dilatation of the ascending aorta measuring 3.30 cm. Venous The inferior vena cava is normal in size and collapses greater than 50% with inspiration. Pericardium/Pleural There is no evidence of pericardial effusion. Prior Study Comparison Changes noted compared to prior study. LV systolic function has reduced Measurements 2D Linear Measurements IVSd: 1.22 0.6-0.9/0.6-1.0 cm LVIDd: 4.77 3.9-5.3/4.2-5.9 cm LVIDd Index: 2.50 2.4-3.2/2.2-3.1 cm/m2 LVIDs: 3.40 2.0-3.6 cm LVPWd: 1.24 0.7-1.1 cm Ao Root: 3.10 2.1-3.5 cm LA Diam: 3.60 2.7-3.8/3.0-4.0 cm LAIDs Index: 1.88 1.5-2.3 cm/m2 LV Mass: 280.18 67-162/88-224 g LV Mass Index: 146.69 43-95/49-115 g/m2 LVOT Diam: 2.00 3.0+(-)1.3 cm 2D Systolic Function EF 4C: 33.60 >55% EF 2C: 38.90 >55% EF BiP: 35.90 >55% Mitral Valve MV Pk E: 0.45 MV PK A: 0.75 MV Decel Time: 132.00 E/A: 0.60 E'Lateral: 8.49 E'Medial: 6.96 E/E' Med: 6.40 E/E' Lat: 5.30 PHT: 39.00 MVA PHT: 5.64 Decel [place]: 3.38 Aortic Valve AoV Pk Marcos: 1.15 AoV Mn Marcos: 0.71 AoV VTI: 0.23 AoV Pk Grad: 5.00 Aov Mn Grad: 3.00 STEPHANIE Cont.VTI: 2.04 LVOT LVOT Pk Marcos: 0.73 LVOT Mn Marcos: 0.50 LVOT VTI: 0.15 LVOT Pk Grad: 2.00 LVOT Mn Grad: 1.00 LVOT Diam: 2.00 LVOT Area: 3.14 Diastolic Function MV Pk E: 0.45 MV Pk A: 0.75 E/A: 0.60 E'Medial: 6.96 E/E' Med: 6.40 E' Laterial: 8.49 E/E' Lat: 5.30 Right Ventricle TAPSE (mm): 18.00 Tricuspid Valve TR Pk Marcos: 1.58 TR Pk Grad: 10.00 RA Press: 3.00 RVSP: 13.00 Great Vessels Aorta Ao Root-2D: 3.10 2.0-3.7 cm Ao Asc: 3.30 2.1-3.4 cm Pulmonary Valve PV Pk Marcos: 0.88 Peak PV Grad: 3.00 Updated in Other Vendor System with Status of Final Tl Jones MD electronically signed on 02/22/2024 3:52:36 PM with status of Final
== END ==
LOC: HO.CARD 09:54
PROVIDERS: PCP Nurse Practitioner Family; Visit Provider Internal Medicine Cardiovascular Disease
DX: I25.10 Atherosclerotic heart disease of native coronary artery without angina pectoris (principal); I51.9 Heart disease, unspecified
CPT/HCPCS: 93306

== ENCOUNTER → 2024-02-22 09:59 | Outpatient (BNV) | payer OTHER, SELFPAY | PROVIDERS: PCP Nurse Practitioner Family; Visit Provider Internal Medicine Cardiovascular Disease | DX: I25.5 Ischemic cardiomyopathy (principal) | CPT/HCPCS: 93306 ==

== ENCOUNTER 2024-04-17 10:21 | Outpatient (REF) | payer OTHER, SELFPAY ==
[2024-04-17 11:52] LABS: Anion Gap 10 (12-20); Blood Urea Nitrogen 31 mg/dL (9-16); Carbon Dioxide 27 mmol/L (22-29); Chloride 109 mmol/L (96-108); Cholesterol 86 mg/dL (<200); Estimated Glomerular Filt Rate 30; Glucose Random 102 mg/dL (60-115); HDL Cholesterol 22 mg/dL (>40); LDL Cholesterol Calculated 38 mg/dL (<100); Potassium 5.3 mmol/L (3.3-5.1); Sodium 141 mmol/L (135-145); Triglycerides 134 mg/dL (<150)
== END 2024-04-17 10:22 | disposition home or self-care (01) ==
LOC: HO.HHCL 10:21
PROVIDERS: Visit Provider Internal Medicine Geriatric Medicine
DX: I25.10 Atherosclerotic heart disease of native coronary artery without angina pectoris (principal); E11.8 Type 2 diabetes mellitus with unspecified complications; Z79.4 Long term (current) use of insulin
CPT/HCPCS: 36415; 80048; 80061

== ENCOUNTER 2024-05-06 07:59 | Outpatient (REF) | payer OTHER, SELFPAY ==
[2024-05-06 16:42] LABS: Urine Cytology See Pathology rpt
== END 2024-05-06 08:00 | disposition home or self-care (01) ==
LOC: HO.LAB 07:59
PROVIDERS: PCP Nurse Practitioner Family; Visit Provider Nurse Practitioner Family
DX: E11.69 Type 2 diabetes mellitus with other specified complication (principal); R31.29 Other microscopic hematuria; N52.1 Erectile dysfunction due to diseases classified elsewhere
CPT/HCPCS: 81003; 88112; 99202

== ENCOUNTER 2024-05-06 07:59 | Outpatient (AMB) | payer OTHER, SELFPAY ==
--- NOTE | 2024-05-06 08:15 | MHC.OFFVIS ---
Intake Visit Reasons: ED Intake Note: New Patient presents for initial visit for erectile dysfunction Urology Medications: none Blood Thinner: none Medical Laboratory Technician Required: Yes Medical Laboratory Technician Services: Medical Laboratory Technician Present Medical Laboratory Technician Name: CHERELLE DOWNS Accompanied by: Self / Same As Patient Allergies No Known Allergies Allergy (Verified 05/06/24 08:48) Medication List - Last Reconciled 05/06/24 by GERARD ChaudhryP- amlodipine 10 mg PO DAILY ascorbic acid (vitamin C) (Vitamin C) 500 mg PO DAILY aspirin (Pilar Low Dose Aspirin) 81 mg PO DAILY atorvastatin 80 mg PO DAILY 90 days blood sugar diagnostic ([employer] Ultra Test strips) As directed carvedilol 12.5 mg PO BID colchicine 0.3 mg PO DAILY dapagliflozin propanediol (Farxiga) 10 mg PO DAILY 30 days ezetimibe (Zetia) 10 mg PO DAILY ferrous sulfate (FeroSul) mg PO folic acid 1 mg PO DAILY furosemide 40 mg PO DAILY gabapentin 300 mg PO BID icosapent ethyl (Vascepa) 2 grams (2 x 1 gram) PO BID 90 days insulin glargine (Lantus Solostar U-100 Insulin) units subcut isosorbide mononitrate ER 30 mg PO DAILY sacubitril-valsartan 24-26 mg (Entresto) 1 tab PO BID ticagrelor (Brilinta) 90 mg PO BID tramadol 50 mg PO Q8H PRN HPI Comments Details: Efrain is a 63-year-old [place]ican-speaking male patient of . He has a past medical history of acute coronary syndrome, diabetic retinopathy, diabetes, hypertension, chronic kidney disease, and smoker. He presents to the office today as a new patient for erectile dysfunction. In discussion with the patient today he reports symptoms started over 7 years ago when he noted difficulty maintaining his erections however feels they have significantly worsen. He reports he is able to obtain an erection however not adequate for penetration. He otherwise denies any bothersome urinary issues. He denies any previous trauma and or surgical history in the area. He denies urinary urgency, urinary frequency, incontinence, nocturia, hematuria, dysuria, foul smelling urine, changes to urinary stream, flank pain, fever, and or chills. He is happy with his current voiding parameters. In office urinalysis results reviewed with the patient today. We discussed at length potential causes of erectile dysfunction as well as further treatment options and risks and benefits of these treatment options. We discussed lifestyle modifications to assist with ED. He does report walking daily and goes to the gym anywhere between 1-3 times per week He otherwise denies any other issues or concerns at this time. PFSH Medical History ACS (acute coronary syndrome) Diabetic retinopathy Diabetes Hypertension CKD (chronic kidney disease) Exertional chest pain Smoker Surgical History Stented coronary artery Hx of cardiac catheterization Family History Mother No problems noted. Father No problems noted. Social History e-Cigarette/Vaping Use: Never Used Current occupational status: unemployed Cognitive needs: No Hearing needs: No Vision needs: Yes (wears glasses) Review of Systems Const Reports no additional complaints Eyes Reports as per HPI ENT Reports no additional complaints Card Reports as per HPI Resp Reports no additional complaints GI Reports no additional complaints Reports as per HPI Musc Reports no additional complaints Neuro Reports no additional complaints Psych Reports no additional complaints Endo Reports as per HPI Physical Exam Const General: cooperative, healthy appearing, comfortable, no acute distress, well developed, alert and awake Orientation/consciousness: patient oriented x3 Limitations: no limitations HEENT Head: Yes normal to inspection, Yes normocephalic and Yes atraumatic Ears: hearing grossly normal bilaterally Eyes General: appearance normal, both eyes and all related structures Neck Neck: Yes normal visual inspection and Yes trachea midline Chest Chest palpation & inspection: normal inspection of the chest Resp Effort & Inspection: normal respiratory effort and able to speak in complete sentences Cardio Rate: regular rate GI Inspection: Yes normal to inspection General: Yes no CVA tenderness Back/Spine/Pelvis Back: no CVA tenderness Skin General skin exam: no rashes or lesions noted Neuro General: patient oriented x3 Extrem General: Yes normal to inspection Psych Appearance: grossly normal and well kempt Mental Status: mental status grossly normal Speech and movement: Normal speech and movement present and Clear speech present Affect: normal affect Attitude: cooperative Thought process: Normal thought process present Thought content: Normal thought content present Insight: Fair insight present (Psych) Judgement: Fair judgement present (Psych) Results AMB Urinalysis, Automated UA Leukoctes 0 Emerson/uL Last Edit by Avery Liang on 05/06/24 08:37 UA Nitrite Last Edit by Avery Liang on 05/06/24 08:37 UA Urobilinogen 0.2 mg/dL Last Edit by Avery Liang on 05/06/24 08:37 UA Protein 30 mg/dL Last Edit by [employer] on 05/06/24 08:37 UA pH 5.5 Last Edit by [employer] on 05/06/24 08:37 UA Blood 10 Gabriel/uL Last Edit by [employer] on 05/06/24 08:37 UA Specific Verner 1.020 Last Edit by [employer] on 05/06/24 08:37 UA Ketone Last Edit by [employer] on 05/06/24 08:37 UA Bilirubin 0 mg/dL Last Edit by [employer] on 05/06/24 08:37 UA Glucose 1000 mg/dL Last Edit by [employer] on 05/06/24 08:37 Results Reviewed Results Reviewed: Laboratory Last Values Urine pH (Auto) 5.5 05/06/24 08:35 Specific Verner (Auto) 1.020 05/06/24 08:35 Urine Protein (Auto) 30 mg/dL 05/06/24 08:35 Glucose (UA)(Auto) 1000 mg/dL 05/06/24 08:35 Urine Blood (Auto) 10 Gabriel/uL 05/06/24 08:35 Urine Bilirubin (Auto) 0 mg/dL 05/06/24 08:35 Urine Urobilinogen (Auto) 0.2 mg/dL 05/06/24 08:35 Leukocyte Esterase (Auto) 0 Emerson/uL 05/06/24 08:35 Assessment & Plan Assessment & Plan (1) Erectile dysfunction associated with type 2 diabetes mellitus: Code(s): E11.69 - Type 2 diabetes mellitus with other specified complication; N52.1 - Erectile dysfunction due to diseases classified elsewhere Category: Medical Plan In office urinalysis results reviewed with the patient today; as noted above; will send for urine cytology We discussed at length potential causes of erectile dysfunction as well as further treatment options and risks and benefits of these treatment options. Start 5 mg Cialis daily as discussed and prescribed. Discussed following up with cardiology regarding Prescription for p.r.n. dosing as patient also on Imdur. Discussed lifestyle modifications to assist with erectile dysfunction. Patient currently denies any bothersome urinary issues or concerns. He reports be happy with current voiding parameters. Will obtain PSA, A1c, and testosterone free and total for further assessment evaluation. Follow-up in 3 months with labs to be completed prior; or sooner with any issues, concerns, and or questions. Orders: Orders AMB Urinalysis Automated Today Z13.9 - Encounter for screening, unspecified Prostate Specific Antigen Today E11.69 - Type 2 diabetes mellitus with other specified complication, N52.1 - Erectile dysfunction due to diseases classified elsewhere Hemoglobin A1c Today E11.9 - Type 2 diabetes mellitus without complications Testosterone, Free/Total Today E11.69 - Type 2 diabetes mellitus with other specified complication, N52.1 - Erectile dysfunction due to diseases classified elsewhere Urine Cytology Today R31.29 - Other microscopic hematuria Medications: New tadalafil (Cialis) TAMEKA [facility] [address] [id number] 5 mg PO DAILY 90 days 90 tabs 0RF Patient Instructions: The patient had an opportunity to ask questions regarding the treatment plan. All questions were answered. Physical exam, labs, and imaging were discussed and reviewed in detail. As well as risks, benefits, and discussion of treatment choices. No major barriers to understanding were identified. The patient expressed understanding and agreement with the above treatment plan. The patient was made aware they should contact our office by phone for worsening of their current condition, the appearance of new symptoms, or with any questions or concerns. Compliance is encouraged with any medications and follow up testing that is ordered. It is a privilege to be allowed the opportunity to participate in? your urological care.? Again, if you have any questions or concerns If you have any questions or concerns please do not hesitate to contact me. The office is [phone]. This note is constructed using voice recognition software. While every effort has been made to ensure accuracy group social worker errors may have been included. Yours sincerely, EDGARDO Chaudhry Coding Level of Care Code New Pt Level 4 (93932) Diagnoses Erectile dysfunction associated with type 2 diabetes mellitus E11.69; N52.1
== END 2024-05-06 08:48 | disposition home or self-care (01) ==
PROVIDERS: PCP Nurse Practitioner Family; Visit Provider Nurse Practitioner Family
DX: E11.69 Type 2 diabetes mellitus with other specified complication (principal); N52.1 Erectile dysfunction due to diseases classified elsewhere; Z13.9 Encounter for screening, unspecified
CPT/HCPCS: 99204

== ENCOUNTER → 2024-05-08 07:55 | Outpatient (REF) | payer OTHER, SELFPAY ==
--- NOTE | ~2024-05-08 | NM_ITS ---
EXERCISE MYOCARDIAL PERFUSION STUDY INDICATION: Chest pain to evaluate for myocardial ischemia TECHNIQUE: The patient was brought in for an exercise perfusion study on 05/08/2024. Patient performed exercise as per Aguilar protocol and was injected through the mCi of sestamibi once target heart rate was achieved. Images were obtained using the SPECT gamma camera interlaced with the gating device. Images were obtained in supine position. Resting perfusion study was performed on 05/09/2024. Patient was administered 30 mCi of sestamibi intravenously at rest. Images were then obtained in supine position. Images were processed with the software and compared side to side in short axis, horizontal long axis and vertical long axis views. FINDINGS: Raw images were reviewed The stress perfusion study showed nonattenuated images show moderately to severely reduced uptake in the inferolateral, lateral wall of the LV myocardium. There is also moderately reduced uptake in the basal inferior and mid inferior wall of the LV myocardium. Attenuated corrected images show moderately reduced uptake in the lateral wall of the LV myocardium. The gated study shows normal LV systolic function with calculated LVEF of 55%. LV cavity is mildly dilated in size. The gated study shows normal systolic wall thickening and contraction of segments. Resting study shows nontender images show persistent reduced uptake in the inferolateral wall but improved uptake in the lateral especially basal lateral wall suggestive reversible defect. Findings are also seen attenuated corrected images.. Gating at rest reveals normal systolic wall motion with ejection fraction at 55%. The findings are consistent with fixed defect in the inferolateral wall both on attenuated as well as nonattenuated images which could represent nontransmural infarct versus severe ischemia. Reversible defect in the basal and mid anterolateral wall suggestive of ischemia.. NM/NM cardiolite stress test IMPRESSION: 1. Myocardial perfusion imaging study shows reversible moderate size defect in the basal and mid anterolateral wall suggestive of ischemia with fixed defect in the inferolateral wall which could represents either ischemia or nontransmural infarct.. 2. Gated LVEF is 55%. 3. Transient ischemic dilatation not present. EKG revealed nondiagnostic due to suboptimal heart rate. Electronically signed by: Tl Jones MD 05/09/2024 01:19 PM [facility]
--- NOTE | 2024-05-08 07:58 | CA_ITS ---
Acquisition Time: 2024-05-08 08:14:48 Total Exercise Time: 00:09:03 Test Indications: sob Medications: Protocol: JOSE ANTONIO Max HR: 125 BPM 79% of Pred: 157 BPM Max BP: 136/074 mmHG Max Work Load: 10.1 METS Exercise Stress Test with exercise 9 min 3 secs of Jose Antonio Protocol, achieving 72% MPHR, meeting 10 METs (pt on Carvedilol), with stabbing right sided chest pain 8/10 that resolved quickly in recovery, reports of moderate SOB, without any arrythmias, with normotensive response to exercise. EKG nondiagnostic for ischemia. Nuclear images pending. In recovery, breathing back to baseline. Test reviewed with Dr. Schaffer. Referred By: Tl Jones Overread By: SERAFIN ROSARIO
== END ==
LOC: HO.CARD 07:55
PROVIDERS: PCP Nurse Practitioner Family; Visit Provider Internal Medicine Cardiovascular Disease
DX: R07.9 Chest pain, unspecified (principal); I25.10 Atherosclerotic heart disease of native coronary artery without angina pectoris; I42.9 Cardiomyopathy, unspecified
CPT/HCPCS: 78452; 93017; A9500

== ENCOUNTER → 2024-05-08 07:58 | Outpatient (BNV) | payer OTHER, SELFPAY | PROVIDERS: PCP Nurse Practitioner Family; Visit Provider Nurse Practitioner Family | DX: R07.9 Chest pain, unspecified (principal); R06.02 Shortness of breath | CPT/HCPCS: 78452; 93016; 93018 ==

== ENCOUNTER 2024-05-12 09:53 | Outpatient (REF) | payer OTHER, SELFPAY ==
[2024-05-12 12:01] LABS: Estimated Average Glucose 137 mg/dL; Hemoglobin A1C 142.3407 umol/L; Hemoglobin A1c % 6.4 % (<6.0); Total Hemoglobin (HGBA1C) 3057.7124 umol/L
[2024-05-12 12:09] LABS: Anion Gap 13 (12-20); Blood Urea Nitrogen 24 mg/dL (9-16); Calcium 9.1 mg/dL (8.4-10.2); Carbon Dioxide 23 mmol/L (22-29); Chloride 108 mmol/L (96-108); Estimated Glomerular Filt Rate 35; Glucose Random 80 mg/dL (60-115); Potassium 4.5 mmol/L (3.3-5.1); Sodium 139 mmol/L (135-145)
[2024-05-12 12:25] LABS: Prostate Specific Antigen 3.78 ng/mL (<0.05-4.0)
[2024-05-17 10:38] LABS: Testosterone, Free 66.3 pg/mL (35.0-155.0); Testosterone, Total 390 ng/dL (250-1100)
== END 2024-05-12 09:54 | disposition home or self-care (01) ==
LOC: HO.HHCL 09:53
PROVIDERS: Nurse Practitioner Family; Visit Provider Internal Medicine Geriatric Medicine
DX: Z12.5 Encounter for screening for malignant neoplasm of prostate (principal); E11.69 Type 2 diabetes mellitus with other specified complication; N52.1 Erectile dysfunction due to diseases classified elsewhere; I10 Essential (primary) hypertension
CPT/HCPCS: 36415; 80048; 83036; 84153; 84402; 84403

== ENCOUNTER 2024-06-02 08:22 | Outpatient (AMB) | payer OTHER, SELFPAY ==
[2024-06-02 08:24] VITALS: BP 114/62; PULSE 91; BMI 30.7
--- NOTE | 2024-06-02 08:24 | A.OFFVIS_ITS ---
Vital Signs 06/02/24 08:24 Height 5 ft 5 in Weight 184 lb 11.958 oz BMI 30.7 BP 114/62 Blood Pressure Location Lt brachial Position Sitting Pulse 91 Pulse Source Pulse Oximeter Intake Visit Reasons: f/up testing Debridging Machine Operator Required: Yes Debridging Machine Operator Language: Pump Operator Name: voice Richter [id number] Allergies No Known Allergies Allergy (Verified 06/02/24 08:25) Medication List - Last Reconciled 06/02/24 by RUTHANN Hobbs amlodipine 10 mg PO DAILY ascorbic acid (vitamin C) (Vitamin C) 500 mg PO DAILY aspirin (Pilar Low Dose Aspirin) 81 mg PO DAILY atorvastatin 80 mg PO DAILY 90 days blood sugar diagnostic ([employer] Ultra Test strips) As directed colchicine 0.3 mg PO DAILY dapagliflozin propanediol (Farxiga) 10 mg PO DAILY 30 days ezetimibe (Zetia) 10 mg PO DAILY ferrous sulfate (FeroSul) mg PO folic acid 1 mg PO DAILY furosemide 40 mg PO DAILY gabapentin 300 mg PO BID insulin glargine (Lantus Solostar U-100 Insulin) units subcut isosorbide mononitrate ER 30 mg PO DAILY sacubitril-valsartan 24-26 mg (Entresto) 1 tab PO BID tadalafil (Cialis) 5 mg PO DAILY 90 days ticagrelor (Brilinta) 90 mg PO BID tramadol 50 mg PO Q8H PRN HPI HPI f/up testing: Details: Efrain is a 63-year-old male with past medical history of hypertension, hyperlipidemia, diabetes, chronic kidney disease, prior smoking, CAD with ACS 04/2023 with ARI to OM2 who presents for follow-up after recent report of chest discomfort and nuclear stress test. Today he reports that he had been experiencing some sharp pains to his chest which were occurring randomly. He also has noticed some shortness of breath when doing activity out in the cold weather. He is quite vague in describing his symptoms and full descriptions are unclear. He tells me that today he is not having any symptoms. He denies PND, orthopnea or edema. No palpitations, presyncope, syncope. He is taking his meds as directed. He quit smoking completely and was applauded on this. He does go to the gym periodically and will do the treadmill and bike. He says he feels okay when he does these activities. PFSH Medical History ACS (acute coronary syndrome) Diabetic retinopathy Diabetes Hypertension CKD (chronic kidney disease) Exertional chest pain Smoker Surgical History (Updated 06/02/24 @ 10:44 by Marci Nova NP-C) Stented coronary artery Hx of cardiac catheterization Family History Mother No problems noted. Father No problems noted. Social History e-Cigarette/Vaping Use: Never Used Current occupational status: unemployed Cognitive needs: No Hearing needs: No Vision needs: Yes (wears glasses) Review of Systems Const All systems reviewed & are unremarkable except as noted in HPI and below ENT Denies dizziness Card Reports chest pain (intermittent sharp stabbing pains), Denies chest pain at r est, Denies chest pain with activity, Denies rapid heart rate, Denies pedal edema, Denies edema, Denies leg edema, Denies lightheadedness, Denies palpitations, Denies dyspnea, Reports dyspnea on exertion (in cold weather) and Denies orthopnea Resp Denies cough, Denies dyspnea and Reports dyspnea on exertion (in cold weather) GI Denies hematochezia and Denies change in stool character Musc Denies abnormal gait, Denies limited range of motion, Denies muscle cramps, Denies muscle weakness, Denies numbness, Denies radiating pain into limb, Denies stiffness and Denies tingling Neuro Denies abnormal gait, Denies dizziness, Denies numbness and Denies tingling Endo Denies palpitations Physical Exam Vital Signs: Last Vital Signs Pulse 91 06/02/24 08:24 BP 114/62 06/02/24 08:24 BMI result Body Mass Index 30.7 Const General: cooperative, healthy appearing, comfortable and no acute distress Orientation/consciousness: patient oriented x3 Neck Neck: Yes normal visual inspection and Yes no JVD Resp Effort & Inspection: normal respiratory effort Auscultation: clear to auscultation bilaterally, no crackles, no rales, no rhonchi and no wheezes Cardio Jugular venous distension: no JVD Rate: regular rate Rhythm: regular rhythm Heart sounds: S1 normal heart sound present, S2 normal heart sound present, no murmurs and no rubs Neuro General: patient oriented x3 Extrem General: Yes normal to inspection and No no pedal edema Psych Appearance: grossly normal Mental Status: mental status grossly normal Speech and movement: Normal speech and movement present Assessment & Plan Assessment & Plan (1) CAD (coronary artery disease): Code(s): I25.10 - Atherosclerotic heart disease of [place] coronary artery without angina pectoris Category: Medical Plan: History of CAD with ACS 04/2023 with cardiac catheterization and ARI placed to OM2. He has been maintained on dual antiplatelet therapy since that time as w ell as high-dose statin. He had an echocardiogram 02/22/2024 showing EF 35-40%, grade 1 diastolic dysfunction with regional wall motion abnormality consistent with ischemic cardiomyopathy. (prior echo 08/24/2023 showed EF 51% with inferior and anterior lateral wall motion abnormalities) As led to a nuclear stress test was done on 05/08/2024 showing reversible moderate size defect in the basal and mid anterior wall suggestive of ischemia with fixed defect in the inferior lateral wall which could represent either ischemia or nontransmural infarct, EF 55%. Today he reports that he has had some atypical sounding chest discomfort and shortness of breath. Test results reviewed with him in detail. For further evaluation he will need to undergo a cardiac catheterization. Procedure, risks and possible outcomes reviewed with him. He is agreeable to proceed. He does have known chronic kidney disease. No contrast dye allergy. Will check preprocedure labs including CBC, BMP and PT/INRs. Continue aspirin and Brilinta without interruption. Continue high-dose atorvastatin and Zetia with ideal LDL goal less than 70. Labs done 04/17/2024 showed LDL 38. Continue isosorbide and carvedilol as antianginals. ( Carvedilol not on his med list today for unclear reason - will restart) Continue the carvedilol Entresto for neurohormonal modulation. He is on Farxiga which will need to be held 3 days prior to his cardiac catheterization procedure. Signs and symptoms of angina reviewed with him. Emergency care if ever needed for symptoms. Cardiology follow-up 2 weeks post procedure. (2) Stented coronary artery: Comment: , April 2023 present with acute coronary syndrome undergoing drug-eluting stent to OM2 for 95% stenosis. Mild disease in RCA and LAD. 85% lesion in the proximal section RPDA Code(s): Z95.5 - Presence of coronary angioplasty implant and graft Category: Surgical (3) Abnormal nuclear stress test: Code(s): R94.39 - Abnormal result of other cardiovascular function study Category: Medical Plan: As above (4) Hypertension: Code(s): I10 - Essential (primary) hypertension Category: Medical Plan: Blood pressure on the lower side today, 114/62. His med list currently does not include carvedilol as it should. Will restart his carvedilol but will start at a lower dose to help avoid hypotension. No other med changes made. (5) CKD (chronic kidney disease): Code(s): N18.9 - Chronic kidney disease, unspecified Category: Medical Plan: History of chronic kidney disease with labs done 05/12/2024 showing creatinine 1.94. Will recheck his labs prior to cardiac catheterization procedure. (6) Cardiomyopathy: Code(s): I42.9 - Cardiomyopathy, unspecified Category: Medical Plan: Recent echo with new cardiomyopathy. He does have a known history of coronary artery disease. This may be ischemic cardiomyopathy. No clinical signs of heart failure on examination. Cardiac catheterization being planned. He is on carvedilol, Entresto and Farxiga for neurohormonal modulation. Plan Time spent on chart review, documentation, interviewed assessment Orders: Orders Prothrombin Time INR Today R94.39 - Abnormal result of other cardiovascular function study Cardiac Cath LT w PCI Today R94.39 - Abnormal result of other cardiovascular function study, Z95.5 - Presence of coronary angioplasty implant and graft Basic Metabolic Panel Today R94.39 - Abnormal result of other cardiovascular function study Complete Blood Count Auto Diff Today R94.39 - Abnormal result of other cardiovascular function study Medications: New carvedilol must administer with a meal/food 6.25 mg PO BID 60 tabs 5RF Coding Level of Care Code Est Pt Level 4 (93326) Complex EM visit Add On G2211 Diagnoses CAD (coronary artery disease) I25.10 Stented coronary artery Z95.5 Abnormal nuclear stress test R94.39 Hypertension I10 CKD (chronic kidney disease) N18.9 Cardiomyopathy I42.9 Time Spent (min) 36
== END 2024-06-02 09:01 | disposition home or self-care (01) ==
PROVIDERS: PCP Nurse Practitioner Family; Visit Provider Nurse Practitioner Family
DX: I25.10 Atherosclerotic heart disease of native coronary artery without angina pectoris (principal); Z95.5 Presence of coronary angioplasty implant and graft; R94.39 Abnormal result of other cardiovascular function study; I12.9 Hypertensive chronic kidney disease with stage 1 through stage 4 chronic kidney disease, or unspecified chronic kidney disease; N18.9 Chronic kidney disease, unspecified; I42.9 Cardiomyopathy, unspecified
CPT/HCPCS: 99214; G2211

== ENCOUNTER 2024-06-02 08:22 | Outpatient (REF) | payer OTHER, SELFPAY ==
[2024-06-02 10:45] LABS: Cholesterol 91 mg/dL (<200); HDL Cholesterol 23 mg/dL (>40); LDL Cholesterol Calculated 55 mg/dL (<100); Triglycerides 68 mg/dL (<150)
== END 2024-06-02 08:23 | disposition home or self-care (01) ==
LOC: HO.LAB 08:22
PROVIDERS: Internal Medicine Cardiovascular Disease; PCP Nurse Practitioner Family; Visit Provider Nurse Practitioner Family
DX: I25.10 Atherosclerotic heart disease of native coronary artery without angina pectoris (principal); Z95.5 Presence of coronary angioplasty implant and graft; I12.9 Hypertensive chronic kidney disease with stage 1 through stage 4 chronic kidney disease, or unspecified chronic kidney disease; N18.9 Chronic kidney disease, unspecified; I42.9 Cardiomyopathy, unspecified; R94.39 Abnormal result of other cardiovascular function study
CPT/HCPCS: 36415; 80061; 99212

== ENCOUNTER 2024-06-03 09:52 | Outpatient (REF) | payer OTHER, SELFPAY ==
[2024-06-03 10:24] LABS: MANUAL DIFF FLAG NO
[2024-06-03 10:54] LABS: Basophils Absolute Auto 0.1 X10*3/uL (0.0-0.2); Basophils Percent Auto 0.7 % (0-2); Eosinophils Absolute Auto 0.2 X10*3/uL (0.0-0.4); Eosinophils Percent Auto 3.5 % (0-4); Hematocrit 36.5 % (42.0-52.0); Hemoglobin 11.6 g/dl (14.0-18.0); Imm Gran Abs Auto 0.02 X10*3/uL (0.00-0.03); Imm Gran Pct Auto 0.3 % (0.0-0.4); Lymphocytes Absolute Auto 1.8 X10*3/uL (1.2-4.9); Mean Corpuscular HGB Conc 31.8 g/dl (31.0-36.0); Mean Corpuscular Hemoglobin 30.1 pg (27.0-33.0); Mean Corpuscular Volume 94.6 fL (80.0-98.0); Monocytes Absolute Auto 0.6 X10*3/uL (0.1-1.2); Monocytes Percent Auto 8.3 % (2-11); Neutrophils Absolute Auto 4.1 x10*3/uL (2.0-8.3); Neutrophils Percent Auto 60.2 % (45-73); Platelet Count 258 X10*3/uL (160-400); Red Blood Count 3.86 X10*6/uL (4.60-5.80); Red Cell Distribution Width 14.2 % (11.0-16.0); White Blood Count 6.8 X10*3/uL (4.8-10.8)
[2024-06-03 11:02] LABS: Prothrombin Time 11.4 SEC (10.9-12.4)
[2024-06-03 11:33] LABS: Anion Gap 14 (12-20); Blood Urea Nitrogen 24 mg/dL (9-16); Calcium 8.9 mg/dL (8.4-10.2); Carbon Dioxide 20 mmol/L (22-29); Chloride 112 mmol/L (96-108); Estimated Glomerular Filt Rate 35; Glucose Random 69 mg/dL (60-115); Potassium 3.8 mmol/L (3.3-5.1); Sodium 142 mmol/L (135-145)
== END 2024-06-03 09:53 | disposition home or self-care (01) ==
LOC: HO.LAB 09:52
PROVIDERS: PCP Internal Medicine Geriatric Medicine; Visit Provider Nurse Practitioner Family
DX: R94.39 Abnormal result of other cardiovascular function study (principal)
CPT/HCPCS: 36415; 80048; 85025; 85610

== ENCOUNTER 2024-06-09 15:31 | Outpatient (AMB) | payer OTHER, SELFPAY ==
--- NOTE | 2024-06-09 16:07 | A.OFFVIS_ITS ---
Intake Visit Reasons: followup Intake Note: Patient presents for follow up visit on: erectile dysfunction and lab results Urology Medications: tadalafil Blood Thinner: none Supply Chain Assistant Required: Yes Supply Chain Assistant Services: Supply Chain Assistant Present Supply Chain Assistant Name: CHERELLE STOREYEVELINA Accompanied by: Self / Same As Patient Allergies No Known Allergies Allergy (Verified 06/09/24 20:12) Medication List - Last Reconciled 06/09/24 by EDGARDO Chaudhry amlodipine 10 mg PO DAILY ascorbic acid (vitamin C) (Vitamin C) 500 mg PO DAILY aspirin (Pilar Low Dose Aspirin) 81 mg PO DAILY atorvastatin 80 mg PO DAILY 90 days blood sugar diagnostic ([employer] Ultra Test strips) As directed carvedilol 6.25 mg PO BID colchicine 0.3 mg PO DAILY dapagliflozin propanediol (Farxiga) 10 mg PO DAILY 30 days ezetimibe (Zetia) 10 mg PO DAILY ferrous sulfate (FeroSul) mg PO folic acid 1 mg PO DAILY gabapentin 300 mg PO BID insulin glargine (Lantus Solostar U-100 Insulin) units subcut isosorbide mononitrate ER 30 mg PO DAILY sacubitril-valsartan 24-26 mg (Entresto) 1 tab PO BID tadalafil (Cialis) 5 mg PO DAILY 90 days ticagrelor (Brilinta) 90 mg PO BID tramadol 50 mg PO Q8H PRN HPI Comments Details: Efrain is a 63-year-old Cambodian-speaking male patient of . He has a past medical history of acute coronary syndrome, diabetic retinopathy, diabetes, hypertension, chronic kidney disease, and smoker. He presents to the office to day for follow-up. Of note, patient was seen approximately 1 month ago as a new patient for erectile dysfunction at which time patient was started on low-dose Cialis and recommendations were made for testosterone and PSA to be drawn for further assessment evaluation. These results were reviewed with the patient today. Testosterone 05/27 390 PSA 05/27 3.8 He discusses having followed up with Cardiology here at [facility] in low-dose Cialis 5 mg was discontinued. He reports never initially starting medication as cardiology has recommended not to at this time. He discusses his upcoming cardi ac catheter procedure and follow-up with cardiology. He discusses his longstanding history of erectile dysfunction for over 7 years. He reports he is able to obtain an erection however not adequate for penetration. He otherwise denies any bothersome urinary issues. He denies any previous trauma and or surgical history in the area. He denies urinary urgency, urinary frequency, incontinence, nocturia, hematuria, dysuria, foul smelling urine, changes to urinary stream, flank pain, fever, and or chills. He is happy with his current voiding parameters. In office urinalysis results reviewed with the patient today. We discussed at length potential causes of erectile dysfunction as well as further treatment options and risks and benefits of these treatment options. We discussed lifestyle modifications to assist with ED. He does report walking daily and goes to the gym anywhere between 1-3 times per week. He otherwise denies any other issues or concerns at this time. [facility] Medical History ACS (acute coronary syndrome) Diabetic retinopathy Diabetes Hypertension CKD (chronic kidney disease) Exertional chest pain Smoker Surgical History (Updated 06/02/24 @ 10:44 by Marci Noav NP-Luis) Stented coronary artery Hx of cardiac catheterization Family History Mother No problems noted. Father No problems noted. Social History e-Cigarette/Vaping Use: Never Used Current occupational status: unemployed Cognitive needs: No Hearing needs: No Vision needs: Yes (wears glasses) Review of Systems Const Reports no additional complaints Eyes Reports as per HPI ENT Reports no additional complaints Card Reports as per HPI Resp Reports no additional complaints GI Reports no additional complaints Reports as per HPI Musc Reports no additional complaints Neuro Reports no additional complaints Psych Reports no additional complaints Endo Reports as per HPI Physical Exam Const General: cooperative, healthy appearing, comfortable, no acute distress, well developed, alert and awake Orientation/consciousness: patient oriented x3 Limitations: no limitations HEENT Head: Yes normal to inspection, Yes normocephalic and Yes atraumatic Ears: hearing grossly normal bilaterally Eyes General: appearance normal, both eyes and all related structures Neck Neck: Yes normal visual inspection and Yes trachea midline Chest Chest palpation & inspection: normal inspection of the chest Resp Effort & Inspection: normal respiratory effort and able to speak in complete sentences Cardio Rate: regular rate GI Inspection: Yes normal to inspection General: Yes no CVA tenderness Back/Spine/Pelvis Back: no CVA tenderness Skin General skin exam: no rashes or lesions noted Neuro General: patient oriented x3 Extrem General: Yes normal to inspection Psych Appearance: grossly normal and well kempt Mental Status: mental status grossly normal Speech and movement: Normal speech and movement present and Clear speech present Affect: normal affect Attitude: cooperative Thought process: Normal thought process present Thought content: Normal thought content present Insight: Fair insight present (Psych) Judgement: Fair judgement present (Psych) Results AMB Urinalysis, Automated UA Leukoctes 0 Emerson/uL Last Edit by Backyard Brains on 06/09/24 16:18 UA Nitrite Last Edit by Backyard Brains on 06/09/24 16:18 UA Urobilinogen 0.2 mg/dL Last Edit by Backyard Brains on 06/09/24 16:18 UA Protein 15 mg/dL Last Edit by Backyard Brains on 06/09/24 16:18 UA pH 6.0 Last Edit by Backyard Brains on 06/09/24 16:18 UA Blood 10 Gabriel/uL Last Edit by Backyard Brains on 06/09/24 16:18 UA Specific [place] 1.015 Last Edit by Backyard Brains on 06/09/24 16:18 UA Ketone Last Edit by Backyard Brains on 06/09/24 16:18 UA Bilirubin 0 mg/dL Last Edit by Backyard Brains on 06/09/24 16:18 UA Glucose 1000 mg/dL Last Edit by Backyard Brains on 06/09/24 16:18 Results Reviewed Results Reviewed: Laboratory Last Values Urine pH (Auto) 6.0 06/09/24 16:17 Specific [place] (Auto) 1.015 06/09/24 16:17 Urine Protein (Auto) 15 mg/dL 06/09/24 16:17 Glucose (UA)(Auto) 1000 mg/dL 06/09/24 16:17 Urine Blood (Auto) 10 Gabriel/uL 06/09/24 16:17 Urine Bilirubin (Auto) 0 mg/dL 06/09/24 16:17 Urine Urobilinogen (Auto) 0.2 mg/dL 06/09/24 16:17 Leukocyte Esterase (Auto) 0 Emerson/uL 06/09/24 16:17 Assessment & Plan Assessment & Plan (1) Erectile dysfunction associated with type 2 diabetes mellitus: Code(s): E11.69 - Type 2 diabetes mellitus with other specified complication; N52.1 - Erectile dysfunction due to diseases classified elsewhere Category: Medical Plan In office urinalysis results reviewed with the patient today; as noted above. Recent testosterone and PSA results reviewed with the patient today; as noted above We discussed at length potential causes of erectile dysfunction as well as further treatment options and risks and benefits of these treatment options. Discussed following up with cardiology regarding p.o. treatment options for erectile dysfunction. Will await status post cardiac cath procedure to further assess treatment options and risks and benefits of these treatment options; this was discussed at length. All questions were answered. Discussed lifestyle modifications to assist with erectile dysfunction. Patient currently denies any bothersome urinary issues or concerns. He reports be happy with current voiding parameters. Follow-up in 3 months; or sooner with any issues, concerns, and or questions. Orders: Orders AMB Urinalysis Automated Today Z13.9 - Encounter for screening, unspecified Patient Instructions: The patient had an opportunity to ask questions regarding the treatment plan. All questions were answered. Physical exam, labs, and imaging were discussed and reviewed in detail. As well as risks, benefits, and discussion of treatment choices. No major barriers to understanding were identified. The patient expressed understanding and agreement with the above treatment plan. The patient was made aware they should contact our office by phone for worsening of their current condition, the appearance of new symptoms, or with any questions or concerns. Compliance is encouraged with any medications and follow up testing that is ordered. It is a privilege to be allowed the opportunity to participate in? your urological care.? Again, if you have any questions or concerns If you have any questions or concerns please do not hesitate to contact me. The office is [phone]. This note is constructed using voice recognition software. While every effort has been made to ensure accuracy etcher hand errors may have been included. Yours sincerely, SALLY Chaudhry-BC Coding Level of Care Code Est Pt Level 3 (75984) Complex EM visit Add On G2211 Diagnoses Erectile dysfunction associated with type 2 diabetes mellitus E11.69; N52.1 Time Spent (min) 35
== END 2024-06-09 16:39 | disposition home or self-care (01) ==
PROVIDERS: PCP Internal Medicine Geriatric Medicine; Visit Provider Nurse Practitioner Family
DX: E11.69 Type 2 diabetes mellitus with other specified complication (principal); N52.1 Erectile dysfunction due to diseases classified elsewhere; Z13.9 Encounter for screening, unspecified
CPT/HCPCS: 99213; G2211

== ENCOUNTER → 2024-06-09 15:31 | Outpatient (BNVA) | payer OTHER, SELFPAY | PROVIDERS: PCP Internal Medicine Geriatric Medicine; Visit Provider Nurse Practitioner Family | DX: E11.69 Type 2 diabetes mellitus with other specified complication (principal); N52.1 Erectile dysfunction due to diseases classified elsewhere | CPT/HCPCS: 81003; 99212 ==

== ENCOUNTER → 2024-06-12 23:59 | Outpatient (BNV) | payer OTHER, SELFPAY | PROVIDERS: PCP Internal Medicine Geriatric Medicine; Visit Provider Internal Medicine Cardiovascular Disease | DX: R93.1 Abnormal findings on diagnostic imaging of heart and coronary circulation (principal) | CPT/HCPCS: 93458; 93571; 99152 ==

== ENCOUNTER 2024-06-26 09:03 | Outpatient (AMB) | payer OTHER, SELFPAY ==
[2024-06-26 09:08] VITALS: BP 110/60; PULSE 84; BMI 30.8
--- NOTE | 2024-06-26 09:08 | A.OFFVIS_ITS ---
Vital Signs 06/26/24 09:08 Height 5 ft 5 in Weight 185 lb 3.013 oz BMI 30.8 BP 110/60 Blood Pressure Location Rt brachial Position Sitting Pulse 84 Pulse Source Monitor Intake Visit Reasons: 2 wk s/p cath Lead Installer Required: Yes Lead Installer Language: Peel Oven Tender Name: Roberta/[id number] Accompanied by: Self / Same As Patient Allergies No Known Allergies Allergy (Verified 06/09/24 20:12) Medication List - Last Reconciled 06/26/24 by RUTHANN Hobbs amlodipine 10 mg PO DAILY ascorbic acid (vitamin C) (Vitamin C) 500 mg PO DAILY aspirin (Pilar Low Dose Aspirin) 81 mg PO DAILY atorvastatin 80 mg PO DAILY 90 days blood sugar diagnostic (VesselVanguard Ultra Test strips) As directed carvedilol 12.5 mg PO BID colchicine 0.3 mg PO DAILY dapagliflozin propanediol (Farxiga) 10 mg PO DAILY 30 days ezetimibe (Zetia) 10 mg PO DAILY ferrous sulfate (FeroSul) mg PO folic acid 1 mg PO DAILY gabapentin 300 mg PO BID insulin glargine (Lantus Solostar U-100 Insulin) units subcut isosorbide mononitrate ER 30 mg PO DAILY sacubitril-valsartan 24-26 mg (Entresto) 1 tab PO BID ticagrelor (Brilinta) 90 mg PO BID tramadol 50 mg PO Q8H PRN HPI HPI 2 wk s/p cath: Details: Efrain is a 63-year-old male with past medical history of hypertension, hyperlipidemia, diabetes, chronic kidney disease, prior smoking, CAD with ACS 04/2023 with ARI to OM2 who recently had abnormal stress test and underwent cardiac catheterization. He now presents for follow-up. Today he reports that since his catheterization procedure he has been noticing some intermittent tingling in his left arm. He says this is random and has no clear trigger. Also separately he has notice some intermittent chest tightness. This is not brought on by physical activity. It is different from the prior sharp pains he had been experiencing. He has shortness of breath in the cold air which is not new for him. He denies PND, orthopnea or edema. No palpitations, presyncope, syncope. Radial catheterization site feels good. He is taking his meds as directed. He previous quit smoking completely and was applauded on this. [facility] Medical History ACS (acute coronary syndrome) Diabetic retinopathy Diabetes Hypertension CKD (chronic kidney disease) Exertional chest pain Smoker Surgical History Stented coronary artery Hx of cardiac catheterization Family History Mother No problems noted. Father No problems noted. Social History e-Cigarette/Vaping Use: Never Used Current occupational status: unemployed Cognitive needs: No Hearing needs: No Vision needs: Yes (wears glasses) Review of Systems Const All systems reviewed & are unremarkable except as noted in HPI and below Denies chills, Denies fatigue, Denies fever(s), Denies frequent falls, Denies weakness, Denies weight gain and Denies weight loss ENT Denies dizziness Card Reports chest pain (random tightness), Reports chest pain at rest, Denies chest pain with activity, Denies leg edema, Denies lightheadedness, Denies palpitations, Denies dyspnea and Denies dyspnea on exertion Resp Denies cough, Denies dyspnea and Denies dyspnea on exertion GI Denies hematochezia Musc Denies abnormal gait, Denies muscle weakness, Reports numbness, Denies radiating pain into limb and Reports tingling Neuro Denies abnormal gait, Denies dizziness, Denies frequent falls, Reports numbness, Reports tingling and Denies weakness Endo Denies fatigue and Denies palpitations Physical Exam Vital Signs: BMI result Body Mass Index 30.8 Const General: cooperative, healthy appearing, comfortable and no acute distress Orientation/consciousness: patient oriented x3 Neck Neck: Yes normal visual inspection and Yes no JVD Resp Effort & Inspection: normal respiratory effort Auscultation: clear to auscultation bilaterally, no crackles, no rales, no rhonchi and no wheezes Cardio Jugular venous distension: no JVD Rate: regular rate Rhythm: regular rhythm Heart sounds: S1 normal heart sound present, S2 normal heart sound present, no murmurs and no rubs Neuro General: patient oriented x3 Extrem General: Yes normal to inspection and No no pedal edema Psych Appearance: grossly normal Mental Status: mental status grossly normal Speech and movement: Normal speech and movement present Office Procedures EKG Details: today, read by me, sinus rhythm, downsloping ST with T inversion leads III, aVF and V6 - same as prior, rate 84, QTc 425ms [id number], Complete Assessment & Plan Assessment & Plan (1) CAD (coronary artery disease): Code(s): I25.10 - Atherosclerotic heart disease of [place] coronary artery without angina pectoris Category: Medical Plan: History of CAD with ACS 04/2023 with cardiac catheterization and ARI placed to OM2. He has been maintained on dual antiplatelet therapy since that time as well as high-dose statin. He had an echocardiogram 02/22/2024 showing EF 35-40%, grade 1 diastolic dysfunction with regional wall motion abnormality consistent with ischemic cardiomyopathy. (prior echo 08/24/2023 showed EF 51% with inferior and anterior lateral wall motion abnormalities) As led to a nuclear stress test was done on 05/08/2024 showing reversible moderate size defect in the basal and mid anterior wall suggestive of ischemia with fixed defect in the inferior lateral wall which could represent either ischemia or nontransmural infarct, EF 55%. He then had cardiac catheterization on 06/12/2024 showing LAD, om, right PDA stenosis with recommendation for coronary artery bypass grafting. He tells me that he has an appointment with the surgeon on 07/03/2024. Catheterization report reviewed with him in detail. Today he reports random chest tightness that he says is new for him. Also tingling in his left arm which occur separately and randomly. Signs and symptoms of angina reviewed with him in detail. Instructed on emergency medical care if discomfort persists. EKG done today showing sinus rhythm with ST and T-wave abnormality leads 3, AVF and V6, unchanged from prior EKG. At this time will increase his isosorbide from 30 mg daily up to 60 mg daily. Continue aspirin and Brilinta without interruption. Continue high-dose atorvastatin and Zetia with ideal LDL goal less than 70. Labs done 04/17/2024 showed LDL 38. Continue isosorbide and carvedilol as antianginals. Continue the carvedilol, Entresto for neurohormonal modulation. Instructed on only light physical activity. Cardiology follow-up 4 weeks to reassess symptoms and plan of care. (2) S/P cardiac catheterization: Comment: 06/12/2024, left main normal, lad mid 70% stenosis, IFR 0.83, OM1 ISR 90%, OM2 stent present, proximal RCA 35% stenosis, right PDA 85% stenosis, Coronary artery bypass grafting referral made Code(s): Z98.890 - Other specified postprocedural states Category: Surgical Plan: Right radial catheterization site well healed (3) Stented coronary artery: Comment: , April 2023 present with acute coronary syndrome undergoing drug-eluting stent to OM2 for 95% stenosis. Mild disease in RCA and LAD. 85% lesion in the proximal section RPDA Code(s): Z95.5 - Presence of coronary angioplasty implant and graft Category: Surgical (4) Abnormal nuclear stress test: Code(s): R94.39 - Abnormal result of other cardiovascular function study Category: Medical Plan: As above (5) Hypertension: Code(s): I10 - Essential (primary) hypertension Category: Medical Plan: Blood pressure on the lower side today, 110/60. Will increasing isosorbide dose. If he does have issues with lightheadedness then will need to make further med adjustments. Follow-up in 4 weeks. He will being the seeing a surgeon on 07/03. (6) Cardiomyopathy: Code(s): I42.9 - Cardiomyopathy, unspecified Category: Medical Plan: Recent echo with new cardiomyopathy. He does have a known history of coronary artery disease. This is likely ischemic cardiomyopathy. No clinical signs of heart failure on examination. He is on carvedilol, Entresto and Farxiga for neurohormonal modulation. Plan Time spent on chart review, documentation, interviewed assessment Medications: New isosorbide mononitrate ER dose increased - adjust pill pack 60 mg PO DAILY 30 tabs 5RF Discontinued isosorbide mononitrate ER Discontinued Reason: Doctor's Order 30 mg PO DAILY 30 tabs 3RF R07.9 - Chest pain, unspecified Coding Level of Care Code Est Pt Level 4 (50193) Complex EM visit Add On G2211 Diagnoses CAD (coronary artery disease) I25.10 S/P cardiac catheterization Z98.890 Stented coronary artery Z95.5 Abnormal nuclear stress test R94.39 Hypertension I10 Cardiomyopathy I42.9 CPT Codes EKG - CPT: [id number], Complete ([id number]) Time Spent (min) 30
== END 2024-06-26 09:40 | disposition home or self-care (01) ==
PROVIDERS: PCP Nurse Practitioner Family; Visit Provider Nurse Practitioner Family
DX: I25.10 Atherosclerotic heart disease of native coronary artery without angina pectoris (principal); Z98.890 Other specified postprocedural states; Z95.5 Presence of coronary angioplasty implant and graft; R94.39 Abnormal result of other cardiovascular function study; I10 Essential (primary) hypertension; I42.9 Cardiomyopathy, unspecified
CPT/HCPCS: 93010; 99214; G2211

== ENCOUNTER → 2024-06-26 09:03 | Outpatient (BNVA) | payer OTHER, SELFPAY | PROVIDERS: PCP Nurse Practitioner Family; Visit Provider Nurse Practitioner Family | DX: I25.10 Atherosclerotic heart disease of native coronary artery without angina pectoris (principal); I10 Essential (primary) hypertension; I42.9 Cardiomyopathy, unspecified; R94.39 Abnormal result of other cardiovascular function study; Z95.5 Presence of coronary angioplasty implant and graft; Z98.890 Other specified postprocedural states | CPT/HCPCS: 93005; 99212 ==

== ENCOUNTER 2024-07-16 08:21 | Outpatient (REF) | payer OTHER, SELFPAY ==
--- NOTE | ~2024-07-16 | US_ITS ---
EXAMINATION: US LOWER EXTREMITY VENOUS (MAPPING EXAM), BILATERAL CLINICAL INFORMATION: Preoperative planning. Vein mapping. COMPARISON: None. TECHNIQUE: Color flow triplex imaging and compression Doppler was performed to evaluate both the deep and the superficial systems bilaterally. To evaluate the superficial system, the examination was performed in the upright position. Color-flow Doppler ultrasound and compression ultrasound were utilized. In addition, maneuvers were utilized to demonstrate reflux. FINDINGS: 1. SUPERFICIAL ULTRASOUND WITH DOPPLER OF RIGHT LOWER EXTREMITY: RIGHT GREAT SAPHENOUS VEIN: Saphenofemoral Junction: 0.5 cm; depth: 2.1 cm Proximal Thigh: 0.3 cm; depth: 1.5 cm Mid Thigh: 0.2 cm; depth: 0.8 cm Above Knee: 0.3 cm; depth: 0.8 cm Medial Knee: 0.2 cm; depth: 0.5 cm Mid Calf: 0.2 cm; depth: 0.4 cm Ankle: 0.3 cm; depth: 0.3 cm RIGHT SMALL SAPHENOUS VEIN: Saphenopopliteal Junction: 0.1 cm; depth: 0.5 cm Proximal calf: 0.1 cm; depth: 0.5 cm Mid Calf: 0.1 cm; depth: 0.4 cm Distal Calf: 0.2 cm; depth: 0.4 cm 1. SUPERFICIAL ULTRASOUND WITH DOPPLER OF LEFT LOWER EXTREMITY: LEFT GREAT SAPHENOUS VEIN: Saphenofemoral Junction: 0.5 cm; depth: 2.1 cm Proximal Thigh: 0.2 cm; depth: 1.4 cm Mid Thigh: 0.2 cm; depth: 0.4 cm Above Knee: 0.2 cm; depth: 0.3 cm Medial Knee: 0.2 cm; depth: 0.4 cm Mid Calf: 0.2 cm; depth: 0.4 cm Ankle: 0.2 cm; depth: 0.6 cm LEFT SMALL SAPHENOUS VEIN: Saphenopopliteal Junction: 0.2 cm; depth: 0.5 cm Proximal calf: 0.1 cm; depth: 0.5 cm Mid Calf: 0.1 cm; depth: 05 cm Distal Calf: 0.2 cm; depth: 0.4 cm US/US venous duplex LE BI IMPRESSION: Bilateral saphenous venous mapping as discussed above. Electronically signed by: Jacoby Piedra MD 07/16/2024 10:10 AM [facility] [place]
--- OUTSIDE RECORDS SUMMARY | 2024-07-16 08:56 | XMS_ITS | Encounter Summary ---
Author Organization [facility] Address [address] [place] [address] Phone Care Team Providers Care Mine Safety Manager Name Role Phone Emperatriz Stoll Primary Care Provider [phone] Encounter Details Date Type Department Care Team (Late st Contact Info) Description 08/09/2022 Telephone [facility] [address] [place] [address] Patricia Deras Social History Tobacco Use Types Packs/Day Years Used Date Smoking Tobacco: Never Assessed Sex and Gender Information Value Date Recorded Sex Assigned at Not on file Legal Sex Male 11:45 AM EST Gender Identity Not on file Sexual Orientation Not on file documented as of this encounter Miscellaneous Notes * Telephone Encounter - Patricia Deras - 08/09/2022 1:38 PM EST PT is running late for his appointment today 1:45 pm 08/09/22. He is walking on his way. documented in this encounter Plan of Treatment Upcoming Encounters Date Type Department Care Team (Latest Contact Info) Description 07/16/2024 3:15 PM EST Office Visit [facility] [address] [phone] Patricia Fulton ARNP [address] [address] 08/04/2024 Orders Only [facility] [address] [place] [id number] Kevin Gates MD [address] [phone] Chronic kidney disease, stage 4 (severe) (HCC); Renal osteodystrophy 10/09/2024 3:15 PM EDT Office Visit [facility] [address] [facility] [place] [address] Kevin Gates MD [address] [phone] documented as of this encounter Visit Diagnoses Not on filedocumented in this encounter Care Teams Mine Safety Manager Relationship Specialty Start Date End Date Emperatriz Stoll [address] [place] [id number] PCP - General 11/29/22 documented as of this encounter
--- OUTSIDE RECORDS SUMMARY | 2024-07-16 08:56 | XMS_ITS | Clinical Summary ---
Author Organization [facility] Address [address] [place] [address] Phone Care Team Providers Care Silo Painter Name Role Phone Neidacruz Emperatriz Primary Care Provider [phone] Allergies No known active allergies Medications amLODIPine (NORVASC) 10 MG tablet Take 10 mg by mouth in the morning. 07/19/19 23 Active carvedilol (COREG) 12.5 MG tablet Take 12.5 mg by mouth in the morning and 12.5 mg in the evening. 07/19/19 23 Active losartan (COZAAR) 25 MG tablet Take 25 mg by mouth in the morning. 07/19/19 23 Active Dapagliflozin Propanediol (Farxiga) 10 MG tablet Take 10 mg by mouth daily 07/19/19 23 Active gabapentin (NEURONTIN) 100 MG capsule Take 100 mg by mouth in the morning and 100 mg at noon and 100 mg in the evening. 07/19/19 23 Active fenofibrate (TRIGLIDE) 160 MG tablet Take 160 mg by mouth 1 (one) time each day 06/28/19 23 Active Ventolin HFA 108 (90 Base) MCG/ACT inhaler INHALE 2 PUFFS EVERY 4 HOURS NEEDED FOR WHEEZING 09/05/19 23 Active Aspirin Low Dose 81 MG chewable tablet Chew 1 tablet 1 (one) time each day 11/28/19 23 Active atorvastatin (LIPITOR) 80 MG tablet Take 80 mg by mouth 1 (one) time each day 09/21/19 23 Active folic acid (FOLVITE) 1 MG tablet Take 1 tablet by mouth 1 (one) time each day 11/28/19 23 Active furosemide (LASIX) 20 MG tablet Take 1 tablet by mouth 1 (one) time each day 11/25/19 23 Active Vascepa 1 g capsule Take 1 mg by mouth 2 (two) times a day 11/28/19 23 Active Lantus SoloStar 100 UNIT/ML injection INJECT 20 UNITS SUBCUTANEOUSLY AT BEDTIME 10/27/19 23 Active isosorbide mononitrate (IMDUR) 30 MG 24 hr tablet Take 1 tablet by mouth 1 (one) time each day 11/28/19 23 Active traMADol (ULTRAM) 50 MG tablet Take 50 mg by mouth every 6 (six) hours if needed for moderate pain Active ranolazine (RANEXA) 500 MG 12 hr tablet Take 500 mg by mouth in the morning and 500 mg in the evening. Do not crush, chew, or split. . Active Kerendia 10 MG tablet TAKE 1 TABLET BY MOUTH EVERY MORNING 90 tablet 2 05/19/20 24 Active Active Problems Problem Noted Date Diagnosed Date Chronic kidney disease, stage 4 (severe) 024 Type 2 diabetes mellitus wit h diabetic chronic kidney disease 03/06/2024 Elevated prostate specific antigen (PSA) 024 Chronic kidney disease, stage 4 (severe) 024 Chronic kidney disease, stage 4 (severe) 023 Renal osteodystrophy 05/07/2023 Peripheral neuropathy 05/04/2023 Myocardial infarction 05/04/2023 Overview (09/03/2023): see above Ischemic cardiomyopathy 05/04/2023 Hyperlipidemia 05/04/2023 History of placement of stent for coronary arter y disease 05/04/2023 Heart failure with normal ejection fraction 06/2022 Diabetes mellitus 05/04/2023 Coronary arteriosclerosis 05/04/2023 Chronic anemia 05/04/2023 Stage 3b chronic kidney disease 11/29/2022 Bleeding gums 08/31/2022 Dental calculus 08/31/2022 Generalized gingival recession 08/31/2022 Periodontal disease 08/31/2022 Bilateral pseudophakia 08/28/2022 Retinal vessel finding 08/28/2022 Vitreomacular adhesion of left eye 08/28/2022 Hypertension 08/09/2022 Chronic kidney disease, stage 4 (severe) 023 Primary hypertension 07/19/2022 Type 2 diabetes mellitus without complication Encounters Date Type Department Care Team Description 05/19/2024 [facility]ill [facility] [address] [place] [address] Kevin Gates MD from Last 3 Months Immunizations Name Administration Dates Next Due Pfizer SARS-COV-2 05/18/2021 Pfizer SARS-CoV-2 Bivalent 30 mcg/0.3 mL 023 SARS-CoV-2, Unspecified 10/06/2020 Social History Tobacco Use Types Packs/Day Years Used Date Smoking Tobacco: Never Smokeless Tobacco: Never Tobacco Cessation:Counseling Given: Not Answered Alcohol Use Standard Drinks/Week Comments Never 0 (1 standard drink = 0.6 oz pur e alcohol) Sex and Gender Information Value Date Recorded Sex Assigned at Not on file Legal Sex Male 11:45 AM EST Gender Identity Not on file Sexual Orientation Not on file Last Filed Vital Signs Vital Sign Reading Time Taken Comments Blood Pressure 124/80 03/06/2024 12:54 PM EDT Pulse 77 09/03/2023 2:21 PM EDT Temperature - - Respiratory Rate - - Oxygen Saturation 98% 03/06/2024 12:54 PM EDT Inhaled Oxygen Concentration - - Weight 86.6 kg (191 lb) 03/06/2024 12:54 PM EDT Height - - Body Mass Index - - Plan of Treatment Upcoming Encounters Date Type Department Care Team (Latest Contact Info) Description 07/16/2024 3:15 PM EST Office Visit [facility] [address] [phone] Patricia Fulton ARNP [address] [phone] 08/04/2024 Orders Only [facility] [address] [place] [address] Kevin Gates MD [address] [address] Chronic kidney disease, stage 4 (severe) (HCC); Renal osteodystrophy 10/09/2024 3:15 PM EDT Office Visit [facility] [address] [place], [place] [address] Kevin Gates MD [address] [facility] [address] [place] [address] Health Maintenance Due Date Last Done Comments Colorectal Cancer Screening: Annual FOBT 2009 Colorectal Cancer Screening: Colonoscopy 2009 Colorectal Cancer Screening: Sigmoidoscopy 2009 Diabetes: Ophthalmology Exam 07/31/2022 Diabetes: Pedal Pulse Checked 07/31/2022 Diabetes: Sensory Foot Exam 07/31/2022 Diabetes: Visual Foot Exam 07/31/2022 Influenza Vaccine (#1) 2024 Hepatitis B Vaccine (3 of 3 - 19+ 3-dose series) 08/19/2024 06/24/2024, 01/01/2024 Diabetes: Hemoglobin A1C 10/11/2024 025, 05/12/2024, 12/04/2023, Additional history exists Pneumococcal Vaccine: Pediat rics (0 to 5 Years) and At-Risk Patients (6 to 64 Years) Completed 01/07/2024 Procedures Procedure Name Priority Date/Time Associated Diagnosis Comments EXT RESULT ENTRY Routine 07/08/2024 from Last 3 Months Results * (ABNORMAL) EXT RESULT ENTRY (07/08/2024) Hemoglobin 12.5(A) 13.5 - 17.5 Hematocrit 38.0(A) 41.0 - 53.0 Platelets 309 150 - 399 10*3/UL Sodium 145 137 - 147 Potassium 6.2(A) 3.4 - 5.5 Carbon Dioxide 21 mmol/L BUN 35(A) 4 - 21 mg/dL Creatinine 2.28(A) 0.60 - 1.30 mg/dL Calcium 9.7 8.7 - 10.7 mg/dL eGFR Non-Afr Albanian 31 07/08/2024 us Historical Provider LAB BLOOD ORDERABLES Malena l Result from Last 3 Months Insurance [employer] CARE DUAL SNP ([id number]) [employer] DUAL SNP ([id number]) Care Teams Silo Painter Relationship Specialty Start Date End Date Emperatriz Stoll [address] [place] [address] PCP - General 11/29/22
== END 2024-07-16 08:22 | disposition home or self-care (01) ==
LOC: HO.US 08:21
PROVIDERS: PCP Nurse Practitioner Family; Visit Provider Thoracic Surgery (Cardiothoracic Vascular Surgery)
DX: Z01.818 Encounter for other preprocedural examination (principal); I25.10 Atherosclerotic heart disease of native coronary artery without angina pectoris
CPT/HCPCS: 93970

== ENCOUNTER → 2024-07-16 08:25 | Outpatient (BNV) | payer OTHER, SELFPAY | PROVIDERS: PCP Nurse Practitioner Family; Visit Provider Radiology Diagnostic Radiology | DX: Z01.818 Encounter for other preprocedural examination (principal) | CPT/HCPCS: 93970 ==

== ENCOUNTER 2024-07-17 13:14 | Outpatient (REF) | payer OTHER, SELFPAY ==
--- NOTE | ~2024-07-17 | US_ITS ---
CLINICAL HISTORY: atherosclerosis US Bilateral Carotid Duplex Comparison: None Findings: There are mild atherosclerotic plaques within the distal right common carotid, right carotid bulb and proximal right internal carotid artery with normal velocity and waveforms. There is mild elevation of peak systolic velocity proximal left internal carotid artery 173 centimeters/second. There is normal velocity measurements left common carotid and left external carotid arteries. There are agbw-hj-lofcpddo atheromatous atheromatous plaques proximal left internal carotid artery mild atheromatous plaques left common carotid artery outp-oz-btnpgvas atheromatous plaques within the left carotid bulb. There is normal anterograde flow within the vertebral arteries. IMPRESSION: Approximately 50-69% stenosis proximal left internal carotid artery, less than 50% diameter stenosis within the right internal carotid artery Please see attached technologist worksheet with the images This document has been electronically signed by: Paul Velarde MD on 07/18/2024 08:03:59
--- OUTSIDE RECORDS SUMMARY | 2024-07-17 13:22 | XMS_ITS | Encounter Summary ---
Author Organization [facility] Address [address] [place] [address] Care Team Providers Care Senior Systems Architect Name Role Phone Rosa Deluca PharmD Unavailable [phone] NameJoey MD Primary Care Provider [phone] Reason for Visit * Reason Comments Follow-up Encounter Details Date Type Department Care Team (Latest Contact Info) Description 07/14/2024 9:45 AM EST Office Visit [facility] [address] [place] [address] Name, MD Joey [address] [place] [address] Coronary arteriosclerosis (Primary Dx); Controlled type 2 diabetes mellitus with complication, with long-term current use of insulin ([facility]) Social History Tobacco Use Types Packs/Day Years Used Date Smoking Tobacco: Former Cigarettes Passive Smoke Exposure: Past Smokeless Tobacco: Never Tobacco Cessation:Counseling Given: Not Answered Alcohol Use Standard Drinks/Week Comments Not Currently 0 (1 standard drink = 0.6 oz pur e alcohol) Depression Answer Date Recorded Patient Health Questionnaire-9 Score 8 06/06/2024 Patient Health Questionnaire-9 Score 8 06/06/2024 Last PHQ-9: Questionnaire Data Not on file 0 06/06/2024 Housing Stability Answer Date Recorded What is your housing situation today? I have nga tapia 02/28/[address] you li ve. Do you have problems with any of the following? None of the above 02/28/2024 Food Insecurity Answer Date Recorded Within the past 12 months, y ou worried that your food would run out before you got money to buy more: Never True 02/28/2024 Within the past 12 months,th e food you bought just didn't last and you didn't have enough money to get more: Never True Transportation Answer Date Recorded In the past 12 months, has l ack of transportation kept you from medical appts, meetings, work or from getting things needed for daily living? No 02/28/2024 Utilities Answer Date Recorded In the past 12 months, has t he electric, gas, oil or water company threatened to shut off services in your home? No 02/28/2024 Depression Answer Date Recorded Patient Health Questionnaire-2 Score 2 06/06/2024 Internet Access Answer Date Recorded Internet Access Q1 Yes 02/28/2024 Internet Access Q2 Not on file 02/28/2024 Sex and Gender Information Value Date Recorded Sex Assigned at Male 06/23/2022 2:49 PM EST Legal Sex Male 11:12 AM EST Gender Identity Male 06/23/2022 2:49 PM EST Sexual Orientation Don't know 06/23/2022 2: 49 PM EST documented as of this encounter Last Filed Vital Signs Vital Sign Reading Time Taken Comments Blood Pressure 130/64 07/14/2024 9:43 AM EST Pulse 78 07/14/2024 9:43 AM EST Temperature 36.7 ??C (98 ??F) 07/14/2024 9:43 AM EST Respiratory Rate 19 07/14/2024 9:43 AM EST Oxygen Saturation - - Inhaled Oxygen Concentration - - Weight 81.7 kg (180 lb 2 oz) 07/14/2024 9:43 AM EST Height 165.1 cm (5' 5 ) 07/14/2024 9:43 AM EST Body Mass Index 29.97 07/14/2024 9:43 AM EST documented in this encounter Progress Notes * Joey Barreto MD - 07/14/2024 9:45 AM EST Subjective Patient ID: Efrain Art is a 63 y.o. male who presents for Follow-up. Patient comes for a follow-up visit. The patient has CAD and ischemic cardiomyopathy. He is currently asymptomatic but he admits to dyspnea on exertion. The patient is using a good cardioprotective regimen as prescribed. He follows closely with cardiology. He was evaluated last month with cardiac ca theterization at [facility] that showed significant CAD. The patient was recommended CABG that is scheduled for next month. Review of Systems Constitutional: Negative for chills, fatigue and fever. HENT: Negative for sore throat. Respiratory: Negative for cough, chest tightness and shortness of breath. Cardiovascular: Negative for chest pain, palpitations and leg swelling. See HPI Gastrointestinal: Negative for abdominal pain and blood in stool. Visit Vitals BP 130/64 (BP Location: Left arm, Patient Position: Sitting, BP Cuff Size: Adult) Pulse 78 Temp 98 ??F (36.7 ??C) (Oral) Resp 19 Ht 5' 5 (1.651 m) Wt 180 lb 2 oz (81.7 kg) BMI 29.97 kg/m?? Smoking Status Former BSA 1.94 m?? Objective Physical Exam Constitutional: Appearance: Normal appearance. Cardiovascular: Rate and Rhythm: Normal rate and regular rhythm. Heart sounds: No murmur heard. Pulmonary: Effort: Pulmonary effort is normal. No respiratory distress. Breath sounds: No wheezing, rhonchi or rales. Abdominal: Palpations: Abdomen is soft. Tenderness: There is no abdominal tenderness. Musculoskeletal: Right lower leg: No edema. Left lower leg: No edema. Neurological: Mental Status: He is alert. Lab Results Component Value Date HGBA1C 6.0 07/14/2024 HGBA1C 6.4 (H) 05/12/2024 HGBA1C 7.0 (A) 03/07/2024 HGBA1C 8.9 (A) 12/04/2023 HGBA1C 8.2 (A) 09/07/2023 HGBA1C 7.1 (A) 06/06/2023 HGBA1C 7.2 (A) 03/08/2023 HGBA1C 7.7 (A) 10/05/2022 HGBA1C 10.0 (A) 07/19/2022 Lab Results Component Value Date GLUCOSE 69 06/03/2024 NA 142 06/03/2024 K 3.8 06/03/2024 CO2 20 (L) 06/03/2024 CL 112 (H) 06/03/2024 BUN 24 (H) 06/03/2024 CREATININE 1.96 (H) 06/03/2024 Current Outpatient Medications on File Prior to Visit Medication Sig Dispense Refill Ascorbic Acid (vitamin C) 500 MG tablet TAKE 1 TABLET BY MOUTH EVERY MORNING 30 tablet 0 Aspirin Low Dose 81 MG chewable tablet CHEW 1 TABLET BY MOUTH EVERY DAY 90 tablet 3 atorvastatin (Lipitor) 80 MG tablet Take 80 mg by mouth in the morning. BD Pen Needle Danielle U/F 32G X 4 MM misc USE DIRECTED ONCE DAILY 100 each 1 Blood Pressure Monitoring (Comfort Touch BP Cuff/Large) misc 1 kit in the morning. 1 each 0 carvedilol (Coreg) 12.5 MG tablet TAKE 1 TABLET BY MOUTH TWICE DAILY 180 tablet 1 Continuous Glucose Sensor (FreeStyle Sarina 2 Sensor) [facility] [place] BLOOD SUGAR FOUR TIMES DAILY 1 each 11 cyanocobalamin (Vitamin B-12) 500 MCG tablet Take as directed: patient purchasing OTC Entresto 24-26 MG tablet TAKE 1 TABLET BY MOUTH TWICE DAILY IN THE MORNING AND IN THE EVENING ezetimibe (Zetia) 10 MG tablet Take 1 tablet (10 mg) by mouth in the morning. 90 tablet 3 Farxiga 10 MG Take 1 tablet (10 mg) by mouth Once per day. 90 tablet 3 Ferrous Sulfate (iron) 325 (65 Fe) MG tablet TAKE 1 TABLET BY MOUTH EVERY MORNING WITH BREAKFAST. 30 tablet 0 folic acid (Folvite) 1 MG tablet TAKE 1 TABLET BY MOUTH EVERY MORNING 30 tablet 1 gabapentin (Neurontin) 300 MG capsule TAKE 1 CAPSULE BY MOUTH EVERY MORNING 30 capsule 0 glucose blood (FreeStyle Precision Virgil Test) test strip Use to check blood sugar with CGM device asneeded 100 each 3 insulin glargine (Lantus SoloStar) 100 UNIT/ML pen Inject subcutaneously 22 units once daily isosorbide mononitrate ER (Imdur) 60 MG 24 hr tablet Take 60 mg by mouth in the morning. Kerendia 10 MG tablet Take 1 tablet by mouth in the morning. Lancets (OneTouch Delica Plus [id number]) [facility] [place] TO TEST BLOOD SUGAR IN THE MORNING 100 each 12 melatonin 3 MG tablet TAKE 1 TABLET BY MOUTH AT BEDTIME NEEDED FOR SLEEP 90 tablet 1 polyethylene glycol, PEG, 3350 (Glycolax) 17 GM/SCOOP powder TAKE 17 GM MIXED IN 8 OUNCES OF WATER ONCE DAILY IN THE MORNING 510 g 2 Semaglutide,0.25 or 0.5MG/DOS, (Ozempic, 0.25 or 0.5 MG/DOSE,) 2 MG/3ML solution pen-injector INJECT 0.5 MG SUBCUTANEOUSLY EVERY 7 DAYS IN THE ABDOMEN, THIGHS, OR UPPER ARM, ROTATE INJECTION SITES. 3mL 3 traMADol (Ultram) 50 MG tablet TAKE 1 TABLET BY MOUTH EVERY TWELVE HOURS NEEDED FOR SEVERE PAIN 56 tablet 0 Vascepa 1 g capsule Take 2 capsules by mouth 2 times daily. [DISCONTINUED] isosorbide mononitrate ER (Imdur) 30 MG 24 hr tablet Take 30 mg by mouth in the morning. albuterol 108 (90 Base) MCG/ACT inhaler Inhale 2 puffs every 4 (four) hours if needed for wheezing.18 g 0 No current facility-administered medications on file prior to visit. Assessment/Plan Diagnoses and all orders for this visit: Coronary arteriosclerosis Comments: Continue current cardioprotective regimen. The patient is scheduled for CABG next month. I wished him luck. Follow-up with me in a couple of months. Controlled type 2 diabetes mellitus with complication, with long-term current use of insulin ([facility]) Comments: Well-controlled. Continue current medications. He is Ozempic and Farxiga Orders: - POCT Glucose - POCT HGB A1C documented in this encounter Plan of Treatment Upcoming Encounters Date Type Department Care Team (Late st Contact Info) Description 08/04/2024 9:30 AM EST Medication Management [facility] [address] [place] [id number] Rosa Deluca, Martha [address] [place] [address] 08/25/2024 9:00 AM EDT Clinical Support [facility] [address] [place] [id number] Remedios Calderon RN 10/16/2024 10:00 AM EDT Office Visit [facility] [address] [place] [address] Cassi Simms [address] [place] [address] documented as of this encounter Goals Goal Patient Goal Type Associated Problems Recent Progress Patient-Stated? Author Blood Pressure < 140/90 Blood Pressure 130/64(2024 9:43 AM EST) No Donald Johnson Hemoglobin A1c < 7.5 Result Component 6(07/14/2024 9:46 AM EST) No Donald Johnson documented as of this encounter Procedures Procedure Name Priority Date/Time Associated Diagnosis Comments POCT GLYCATED HEMOGLOBIN, TOTAL Routine 07/14/2024 9:46 AM EST Controlled type 2 diabetes mellitus with complication, with long-term current use of insulin ([facility]) POCT GLUCOSE Routine 07/14/2024 9:46 AM EST Controlled type 2 diabetes mellitus with complication, with long-term current use of insulin ([facility]) documented in this encounter Results * POCT HGB A1C (07/14/2024 9:46 AM EST) Hemoglobin A1C 6.0 4.0 - 6.0 % QC Media Lot # [id number] Lot# Expiration Date Blood 07/14/2024 9:46 AM EST Result Fredrick Barreto MD POINT OF CARE TEST ENTER/EDIT OR DERABLES Final Result * POCT Glucose (07/14/2024 9:46 AM EST) Glucose Blood, POC 67 60 - 200 mg/dL Comment:Fasting QC Media Lot # [id number] Lot# Expiration Date 936 Blood Capillary blood specimen / Unknown 07/14/2024 9:46 AM EST Result Fredrick Barreto MD POINT OF CARE TEST ENTER/EDIT OR DERABLES Final Result documented in this encounter Visit Diagnoses Diagnosis Coronary arteriosclerosis- Primary Coronary atherosclerosis of unspecified type of vessel, hopi or graft Controlled type 2 diabetes mellitus with complication, with long-term current use of insulin ([facility]) documented in this encounter Additional Health Concerns Assessment Noted Time PHQ-9 Depression Total Score: 8 06/06/19 25 11:44 AM EST documented as of this encounter Care Teams Senior Systems Architect Relationship Specialty Start Date End Date Name, MD Joey [address] [place] [address] PCP - General Internal Medicine 02/06/24 Rosa Deluca, Martha [address] [place] [address] Pharmacist Internal Medicine 12/03/23 documented as of this encounter
--- OUTSIDE RECORDS SUMMARY | 2024-07-17 13:22 | XMS_ITS | Encounter Summary ---
Author Organization [facility] [employer] Address [address] [place] [address] Care Team Providers Care Application Designer Name Role Phone Rosa Deluca PharmD Unavailable [phone]- [phone] Name, Joey MERINO Primary Care Provider [phone] Reason for Visit * Reason Comments Med Refill Encounter Details Date Type Department Care Team ([facility] st Contact Info) Description 07/14/2024 Refill [facility] [address] [place] [address] Patricia Thompson DO [address] [place] [address] Social History Tobacco Use Types Packs/Day Years Used Date Smoking Tobacco: Former Cigarettes Passive Smoke Exposure: Past Smokeless Tobacco: Never Alcohol Use Standard Drinks/Week Comments Not Currently 0 (1 standard drink = 0.6 oz pur e alcohol) Depression Answer Date Recorded Patient Health Questionnaire-9 Score 8 06/06/2024 Patient Health Questionnaire-9 Score 8 06/06/2024 Last PHQ-9: Questionnaire Data Not on file 0 06/06/2024 Housing Stability Answer Date Recorded What is your housing situation today? I have ngapino tapia 02/28/[address] you [...] PM EST documented as of this encounter Plan of Treatment Upcoming Encounters Date Type Department Care Team (Late st Contact Info) Description 08/04/2024 9:30 AM EST Medication Management [facility] [address] [place] [id number] Rosa Deluca, PharmD [address] [place] [address] 08/25/2024 9:00 AM EDT Clinical Support [facility] [address] [place] [address] Remedios Calderon RN 10/16/2024 10:00 AM EDT Office Visit [facility] [address] [place] [address] Cassi Simms [address] [place] [address] documented as of this encounter Goals Goal Patient Goal Type Associated Problems Recent Progress Patient-Stated? Author Blood Pressure < 140/90 Blood Pressure 130/64(2024 9:43 AM EST) No Donald Johnson Hemoglobin A1c < 7.5 Result Component 6(07/14/2024 9:46 AM EST) No Donald Johnson documented as of this encounter Visit Diagnoses Not on filedocumented in this encounter Additional Health Concerns Assessment Noted Time PHQ-9 Depression Total Score: 8 06/06/19 25 11:44 AM EST documented as of this encounter Care Teams Application Designer Relationship Specialty Start Date End Date Name, MD Joey [address] [place] [address] PCP - General Internal Medicine 02/06/24 Rosa Deluca, Martha [address] [place] [address] Pharmacist Internal Medicine 12/03/23 documented as of this encounter
--- OUTSIDE RECORDS SUMMARY | 2024-07-17 13:22 | XMS_ITS | Encounter Summary ---
Author Organization [employer] Address [address] [facility] [address] [facility] [address] [place] [address] Care Team Providers Care Special Procedures Nurse Name Role Phone Rosa Deluca PharmD Unavailable [phone] Name, Joey MERINO Primary Care Provider [phone] Reason for Visit * Reason Comments Diabetic Eye Exam Encounter Details Date Type Department Care Team (Latest Contact Info) Description 06/18/2024 9:30 AM EST Office Visit [facility] OPTOMETRY [address] [place] [address] Nick, Jenniffer, OD [address] [place] [address] 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 male. Chief Complaint Diabetic Eye Exam HPI Here for a diabetic eye exam. He has Type II IDDM. His last HbA1c was 6.4% on 05/12/2024. He is followed for retinal care by Dr. Abbott at [facility]. His next appointment is on 07/02/2024. He states they are only treating his right eye and have not recommended any treatment for the left eye. Today he reports he sees well at distance with and without glasses. He notes good vision at near with his glasses. His last eye exam here was on 11/27/2022. Last edited by Jenniffer Romero, OD on 07/04/2024 11:44 AM. Current Outpatient Medications Medication Sig Dispense Refill traMADol (Ultram) 50 MG tablet TAKE 1 TABLET BY MOUTH EVERY TWELVE HOURS NEEDED FOR SEVERE PAIN 56 tablet 0 albuterol 108 (90 Base) MCG/ACT inhaler Inhale 2 puffs every 4 (four) hours if needed for wheezing.18 g 0 Ascorbic Acid (vitamin C) 500 MG tablet [...] Continuous Glucose Sensor (FreeStyle Sarina 2 Sensor) [facility] TEST BLOOD SUGAR FOUR TIMES DAILY 1 [...] units once daily isosorbide mononitrate ER (Imdur) 30 MG 24 hr tablet Take 30 mg by mouth in the morning. Kerendia 10 MG tablet Take 1 tablet by mouth in the morning. Lancets (OneTouch Delica Plus [id number]) misc USE TO TEST BLOOD SUGAR IN THE [...] UPPER ARM, ROTATE INJECTION SITES. 3mL 3 Vascepa 1 g capsule Take 2 capsules by mouth 2 times daily. No current facility-administered medications for this visit. Past Medical History: Diagnosis Date Diabetes mellitus (CMS/[facility]) Heart disease Hyperlipidemia Hypertension Kidney disease Obesity Periodontal disease Proliferative diabetic retinopathy (CMS/[facility]) Past Surgical History: Procedure Laterality Date CATARACT EXTRACTION Bilateral PANRETINAL PHOTOCOAGULATION Bilateral PARS PLANA VITRECTOMY Bilateral PROSTHODONTIC PROCEDURE Family History Problem Relation Name Age of Onset Hypertension Mother Social History Socioeconomic History Marital status: Spouse name: Not on file Number of children: Not on file Years of education: Not on file Highest education level: Not on file Occupational History Not on file Tobacco Use Smoking status: Former Types: Cigarettes Passive exposure: Never Smokeless tobacco: Never Vaping Use Vaping status: Never Used Substance and Sexual Activity Alcohol use: Not Currently Drug use: Never Sexual activity: Not on file Other Topics Concern Not on file Social History Narrative Not on file Social Drivers of Health Food Insecurity: Low Risk (02/28/2024) Food Insecurity Within the past 12 months, you worried that your food would run out before you got money to buy more:: Never True Within the past 12 months,the food you bought just didn't last and you didn't have enough money to get more: : Never True Transportation Needs: Low Risk (02/28/2024) Transportation In the past 12 months, has lack of transportation kept you from medical appts, meetings, work or from getting things needed for daily living? : No Intimate Partner Violence: Not on file Housing Stability: Low Risk (02/28/2024) Housing Stability What is your housing situation today?: I have housing Think about the place you live. Do you have problems with any of the following? : None of the above No Known Allergies ROS Negative for: Constitutional, Gastrointestinal, Neurological, Skin, Genitourinary, Musculoskeletal,HENT, Endocrine, Cardiovascular, Eyes, Respiratory, Psychiatric, Allergic/Imm, Heme/Lymph Last edited by Jenniffer Romero OD on 07/04/2024 11:44 AM. Base Eye Exam Visual Acuity (Snellen - Linear) Right Left Dist cc 20/20 -1 20/60 +2 Dist ph cc 20/40 -2 Tonometry (iCare , 9:34 AM) Right Left Pressure 14 13 Pupils Pupils APD Right PERRL None Left PERRL None Visual Hinojosa (Counting fingers) Left Right Full Full Extraocular Movement Right Left Full Full Neuro/Psych Oriented x3: Yes Mood/Affect: Normal Dilation Both eyes: 1% Tropicamide @ 9:44 AM Slit Lamp and Fundus Exam External Exam Right Left External Normal Normal Slit Lamp Exam Right Left Lids/Lashes Normal Normal Conjunctiva/Sclera Pinguecula nasal and temporal Pinguecula nasal and temporal Cornea CE scar at 9:00 CE scar at 3:00 Anterior Chamber Deep and quiet Deep and quiet Iris Flat, no NVI Flat, no NVI Lens PCIOL PCIOL Fundus Exam Right Left Vitreous Clear Clear Disc Temporal pallor, distinct, no NVD Temporal pallor, distinct, no NVD C/D Ratio Vertical 0.1 0.1 C/D Ratio Horizontal 0.1 0.1 Macula Few exudates and dot hemes in macula, significant ERM with traction, cystic spaces just temporal to fovea, no SRF Significant ERM with traction, geographic atrophy nasal to fovea extending nasally, no CSME/SRF Vessels Normal Normal Periphery PRP 360 in periphery, Isolated hemorrhage at 12:00 in the periphery, scattered fibrovascular proliferation, hemes centrally extending temporally in posterior pole, No holes/breaks/tears 360degrees, no NVE PRP 360 in the periphery, significant scattered fibrovascular proliferation, Significant geographic atrophy of the superonasal quadrant, No detachments 360 degrees, no NVE Refraction Wearing Rx Sphere Cylinder [place] Add Right [place] -0.50 070 +2.50 Left [place] -0.75 032 +2.50 Type: Bifocals Manifest Refraction (Subjective) Sphere Cylinder [place] Dist [place] Add Right [place] -0.50 065 20/20-1 +2.50 Left [place] -0.50 040 20/50+1 +2.50 Near VA Both: 20/30 Final Rx Sphere Cylinder [place] Dist VA Right [place] -0.50 065 20/20-1 Left Balance Type: DVO Expiration Date: 06/18/2025 Comments: Polycarbonate Final Rx #2 Sphere Cylinder [place] Dist VA Right +2.50 -0.50 065 Left Balance Type: NVO Expiration Date: 06/18/2025 Comments: Polycarbonate Assessment/plan: Diagnoses and all orders for this visit: 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 There are cystic spaces in the right eye but those are likely due to the epiretinal membrane (ERM) in the right eye. There is no macular edema in the left eye.Findings are much improved since last visit. He is being followed frequently by Dr. Abbott at [facility] and is receiving NORBERTO in the right eye. He has tractional fibers scattered in both eyes, worse in the left eye. There is geographic atrophy in the left eye likely due to past treatment in [place] (per patient). He was educated on the findings today. He has left sided field loss most likely due to the extensive panretinal photocoagulation (PRP). He was reeducated on the importance of keeping all eye care appointments due to the risk of permanent vision loss. He will see Dr. Abbott on 07/02/2024. A summary of today's dilated eye exam results will be communicated to the patient's PCP through the shared patient problem list in [facility]. Will monitor here in 1 year. History of panretinal photocoagulation Monitored and treated by Dr. Abbott at [facility]. Epiretinal membrane (ERM) of both eyes The patient has significant epiretinal membrane (ERM)'s in both eyes. He will continue being monitored by his retina specialist. Will monitor here at his annual exams. - OCT, Retina - OU - Both Eyes 4. Macular atrophy, retinal The patient has geographic atrophy in the superonasal quadrant extending to just nasal to the foveain the left eye. The finding is stable to his previous exam findings. His vision is reduced to 20/50. Will monitor at his next exam. 5. Pseudophakia of both eyes Implants are clear and centered in both eyes. Will monitor at his next exam. 6. Presbyopia of both eyes Glasses prescription updated and given. Will monitor at the patient's next full eye exam. Jenniffer Nick, OD 07/04/2024, 12:20 PM Student Name: Stanton Crawford I attest that I was physically present with the optometry student. I personally saw and evaluated the patient and performed my own history and examination. I have reviewed, verified, and revised the documented findings as necessary and agree with the content and plan as written. Runner On Source: ___ None _X__ Bilingual Staff ___ Qualified Staff Corporate Consultant ___ Telephone Runner On; ID# ___ Runner On brought by patient (family member, friend, HELMET HAT BRIM CUTTER, etc) ___ In person schedule announcer ___ Ipad Runner On; ID#: Language Spoken During Exam: _Spanish documented in this encounter Plan of Treatment Upcoming Encounters Date Type Department Care Team (Late st Contact Info) Description 08/04/2024 9:30 AM EST Medication Management [facility] MEDICINE [address] [place] [address] Rosa Deluca, Martha [address] [place] [address] 08/25/2024 9:00 AM EDT Clinical Support [facility] MEDICINE [address] [place] [address] Remedios Calderon RN 10/16/2024 10:00 AM EDT Office Visit [facility] ADULT DENTAL [address] [place] [address] Cassi Simms [address] [place] [address] documented as of this encounter Goals Goal Patient Goal Type Associated Problems Recent Progress Patient-Stated? Author Blood Pressure < 140/90 Blood Pressure 130/64(2024 9:43 AM EST) No Donald Johnson Hemoglobin A1c < 7.5 Result Component 6(07/14/2024 9:46 AM EST) No Donald Johnson documented as of this encounter Procedures Procedure Name Priority Date/Time Associated Diagnosis Comments OCT, RETINA - OU - BOTH EYES Routine 06/18/2024 9:30 AM EST Epiretinal membrane (ERM) of both eyes documented in this encounter Results * OCT, Retina - OU - Both Eyes (06/18/2024 9:30 AM EST) Jenniffer Benjamin, OD - 07/04/2024 11:39 AM EST OCT MACULA INTERPRETATION Optical Coherence Tomography Interpretation Report Measurements: OD ??OS Macula Thickness ??248 microns ??133 microns Test findings: OD: Significant epiretinal membrane (ERM) with traction causing foveal distortion, cystic spaces just temporal to fovea, no retinal pigment epithelium (RPE) disruption, no subretinal fluid (SRF) OS: Atrophic changes at fovea causing severe central thinning of macula, significant epiretinal membrane (ERM) with traction and lamellar hole just inferior to fovea, no cystoid macular edema (CME), retinal pigment epithelium (RPE) atrophy just nasal to fovea extending nasally and superiorly, no subretinal fluid (SRF) Impression and Plan: Patient already followed by Dr. Abbott at [facility]. He will continue his frequent follow-ups there as scheduled. Will monitor here in 1 year. 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, macular edema presence unspecified ([facility]/HCC)- Primary History of panretinal photocoagulation Epiretinal membrane (ERM) of both eyes Macular atrophy, retinal Pseudophakia of both eyes Lens replaced by other means Presbyopia of both eyes documented in this encounter Additional Health Concerns Assessment Noted Time PHQ-9 Depression Total Score: 8 06/06/19 25 11:44 AM EST documented as of this encounter Care Teams Special Procedures Nurse Relationship Specialty Start Date End Date Name, MD Joey [address] [place] [address] PCP - General Internal Medicine 02/06/24 Rosa Deluca, Martha [address] [place] [address] Pharmacist Internal Medicine 12/03/23 documented as of this encounter
--- OUTSIDE RECORDS SUMMARY | 2024-07-17 13:22 | XMS_ITS | Encounter Summary ---
Author Organization [employer] Address [address] [place] [address] Care Team Providers Care Relationship Advisor Name Role Phone Emperatriz Stoll Primary Care Provider +8 Rosa Deluca PharmD Unavailable [phone] Name, Joey MERINO Primary Care Provider [phone] Encounter Details Date Type Department Care Team (Late st Contact Info) Description 04/06/2023 Orders Only [facility] MED & PEDS [address] [place] [address] Emperatriz Stoll FNP [address] [place] [address] Social History Tobacco Use Types Packs/Day Years Used Date Smoking Tobacco: Former Cigarettes Passive Smoke Exposure: Never Smokeless Tobacco: Never Alcohol Use Standard Drinks/Week Comments Not Currently 0 (1 standard drink = 0.6 oz pur e alcohol) Depression Answer Date Recorded Patient Health Questionnaire-9 Score 0 12/13/2022 Housing Stability Answer Date Recorded What is your housing situation today? I have nga tapia 03/21/[address] you li ve. Do you have problems with any of the following? None of the above 03/21/2023 Food Insecurity Answer Date Recorded Within the past 12 months, y ou worried that your food would run out before you got money to buy more: Never True 03/21/2023 Within the past 12 months,th e food you bought just didn't last and you didn't have enough money to get more: Never True Transportation Answer Date Recorded In the past 12 months, has l ack of transportation kept you from medical appts, meetings, work or from getting things needed for daily living? No 03/21/2023 Utilities Answer Date Recorded In the past 12 months, has t he electric, gas, oil or water company threatened to shut off services in your home? No 03/21/2023 Depression Answer Date Recorded Patient Health Questionnaire-2 Score 0 12/13/2022 Sex and Gender Information Value Date Recorded Sex Assigned at Male 06/23/2022 2:49 PM EST Legal Sex Male 11:12 AM EST Gender Identity Male 06/23/2022 2:49 PM EST Sexual Orientation Don't know 06/23/2022 2: 49 PM EST documented as of this encounter Plan of Treatment Upcoming Encounters Date Type Department Care Team (Late st Contact Info) Description 08/04/2024 9:30 AM EST Medication Management [facility] MEDICINE [address] [place] [address] Rosa Deluca PharmD [address] [place] [address] 08/25/2024 9:00 AM EDT Clinical Support [facility] MEDICINE [address] [place] [address] Remedios Calderon, KYLER 10/16/2024 10:00 AM EDT Office Visit [facility] ADULT DENTAL [address] [place] [address] Cassi Simms [address] [place] [address] documented as of this encounter Goals Goal [...] Assessment Noted Time PHQ-9 Depression Total Score: 0 12/14/19 23 11:09 AM EDT documented as of this encounter Care Teams Relationship Advisor Relationship Specialty Start Date End Date Emperatriz Stoll FNP [address] [place] [address] PCP - General Family Medicine 07/19/22 02/05/24 Joey Barreto MD [address] [place], [place] [phone] PCP - General Internal Medicine 02/06/24 Rosa Deluca, DamionD [address] [place] [address] Pharmacist Internal Medicine 12/03/23 documented as of this encounter
--- OUTSIDE RECORDS SUMMARY | 2024-07-17 13:22 | XMS_ITS | Encounter Summary ---
Author Organization [employer] Address [address] [place] [address] Care Team Providers Care Quality Assurance Supervisor Final Name Role Phone Emperatriz Stoll Primary Care Provider + Rosa Deluca PharmD Unavailable [phone] Name, Joey MERINO Primary Care Provider [phone] Reason for Visit * Reason Comments Med Refill Encounter Details Date Type Department Care Team ([facility] st Contact Info) Description 05/01/2023 Refill [facility] MEDICINE [address] [place] [address] Emperatriz Stoll FNP [address] [place], [place] [phone] Primary hypertension Social History Tobacco Use Types Packs/Day Years Used Date Smoking Tobacco: Former Cigarettes Passive Smoke Exposure: Never Smokeless Tobacco: Never Alcohol Use Standard Drinks/Week Comments Not Currently 0 (1 standard drink = 0.6 oz pur e alcohol) Depression Answer Date Recorded Patient Health Questionnaire-9 Score 0 12/13/2022 Housing Stability Answer Date Recorded What is your housing situation today? I have ngapino tapia 03/21/[address] you [...] Description 08/04/2024 9:30 AM EST Medication Management [facility] MEDICINE [address] [place] [address] Rosa Deluca, PharmD [address] [place] [address] 08/25/2024 9:00 AM EDT Clinical Support [facility] MEDICINE [address] [place] [address] Remedios Calderon RN 10/16/2024 10:00 AM EDT Office Visit [facility] ADULT DENTAL [address] [place] [address] Cassi Simms [address] [place] [address] documented as of this encounter Goals Goal Patient Goal Type Associated Problems Recent Progress Patient-Stated? Author Blood Pressure < 140/90 Blood Pressure 130/64(2024 9:43 AM EST) No Donald Johnson Hemoglobin A1c < 7.5 Result Component 6(07/14/2024 9:46 AM EST) No Donald Johnson documented as of this encounter Visit Diagnoses Diagnosis Primary hypertension Unspecified essential hypertension documented in this encounter Additional Health Concerns Assessment Noted Time PHQ-9 Depression Total Score: 0 12/14/19 23 11:09 AM EDT documented as of this encounter Care Teams Quality Assurance Supervisor Final Relationship Specialty Start Date End Date Emperatriz Stoll FNP [address] [place] [address] PCP - General Family Medicine 07/19/22 02/05/24 Name, MD Joey [address] [place] [address] PCP - General Internal Medicine 02/06/24 Rosa Deluca, DamionD [address] [place] [address] Pharmacist Internal Medicine 12/03/23 documented as of this encounter
--- OUTSIDE RECORDS SUMMARY | 2024-07-17 13:22 | XMS_ITS | Encounter Summary ---
Author Organization [facility] Address [address] [place] [address] Care Team Providers Care Roll On Worker Name Role Phone Emperatriz Stoll Primary Care Provider +3 Rosa Deluca PharmD Unavailable [phone] Name, Joey MERINO Primary Care Provider [phone] Encounter Details Date Type Department Care Team ([facility] st Contact Info) Description 10/20/2022 Orders Only [facility] MEDICINE [address] [place] [address] Emperatriz Stoll FNP [address] [place], [place] [phone] Other chronic pain Social History Tobacco Use Types Packs/Day Years Used Date Smoking Tobacco: Former Cigarettes Passive Smoke Exposure: Never Smokeless Tobacco: Never Alcohol Use Standard Drinks/Week Comments Not Currently 0 (1 standard drink = 0.6 oz pur e alcohol) PHQ-2 Answer Date Recorded Patient Health Questionnaire-2 Score 2 07/19/2022 Sex and Gender Information Value Date Recorded Sex Assigned at Male 06/23/2022 2:49 PM EST Legal Sex Male 11:12 AM EST Gender Identity Male 06/23/2022 2:49 PM EST Sexual Orientation Don't know 06/23/2022 2: 49 PM EST COVID-19 Exposure Response Date Recorded In the last 10 days, have yo u been in contact with someone who was confirmed or suspected to have Coronavirus/COVID-19? No / Unsure 10/19/2022 10:00 AM EDT documented as of this encounter Plan of Treatment Upcoming Encounters Date Type Department Care Team (Late st Contact Info) Description 08/04/2024 9:30 AM EST Medication Management [facility] MEDICINE [address] [place] [address] Rosa Deluca, PharmD [address] [place] [address] 08/25/2024 9:00 AM EDT Clinical Support [facility] MEDICINE [address] [place] [address] Remedios Calderon, KYLER 10/16/2024 10:00 AM EDT Office Visit [facility] ADULT DENTAL [address] [place] [address] Cassi Simms [address] [place] [address] documented as of this encounter Procedures Procedure Name Priority Date/Time Associated Diagnosis Comments XR CHEST 2 VIEWS Routine 11/17/2022 4:30 PM EDT documented in this encounter Results * XR Chest 2 Views (11/17/2022 4:30 PM EDT) Anatomical Region Laterality Modality Chest Radiographic Mony ging 11/17/2022 4:30 PM EDT Narrative 11/24/2022 2:21 PM EDT ?[facility] ?[address] ?[place] [id number] ?XRay Report ? Signed ? Patient: Esdras,Efrain ?MR#: [id number] ? : 1960 ?Acct:[id number] ? Age/Sex: 61 / M ?ADM Date: /16/ ? Loc: HO.HHCX ? Attending Dr: Emperatriz Stoll SHOT POLISHER ? Ordering Physician: Emperatriz Stoll SHOT POLISHER ?? Date of Service: 11/17/22 ?? Procedure(s): XR chest 2V ?? Accession Number(s): [id number] ? cc: Emperatriz Stoll SHOT POLISHER ? EXAMINATION: ?? XR CHEST ? CLINICAL INFORMATION: ?? Bilateral lower extremity swelling ? COMPARISON: ?? None available. ? TECHNIQUE: ?? 2 views of the chest were obtained. ? FINDINGS: ?? The cardiac and mediastinal contours are normal. The lungs are clear. ?? No pleural effusion or pneumothorax. Degenerative changes of the spine. ? XR/XR chest 2V ?? IMPRESSION: ?? No evidence for acute disease in the chest. ? Dictated By: ?Sofya Meza MD ? Signed By: ?<Electronically signed by Sofya Meza MD in OV> ? 11/24/22 1418 ? DD/ 1630 ? TD/TT: ? Boiler Washer: DAVID ? Procedure Note Robi Dockery - 11/29/2022 [facility] [address] [place] [address] XRay Report Signed Patient: Efrain DewittMR#: [id number] : 1960cct:[id number] Age/Sex: 61 / MADM Date: 11/17/22 Loc: HO.HHCX Attending Dr: Emperatriz Stoll SHOT POLISHER Ordering Physician: Emperatriz Stoll NP Date of Service: 11/17/22 Procedure(s): XR chest 2V Accession Number(s): [id number] cc: Emperatriz Stoll SHOT POLISHER EXAMINATION: XR CHEST CLINICAL INFORMATION: Bilateral lower extremity swelling COMPARISON: None available. TECHNIQUE: 2 views of the chest were obtained. FINDINGS: The cardiac and mediastinal contours are normal. The lungs are clear. No pleural effusion or pneumothorax. Degenerative changes of the spine. XR/XR chest 2V IMPRESSION: No evidence for acute disease in the chest. Dictated By: Sofya Meza MD Signed By: <Electronically signed by Sofya Meza MD in OV> 11/24/22 1418 DD/ 1630 TD/TT: Boiler Washer: DAVID [facility] External Provider IMG XR PROCEDURES Final Result documented in this encounter Visit Diagnoses Diagnosis Other chronic pain documented in this encounter Additional Health Concerns Assessment Noted Time PHQ-9 Depression Total Score: 7 07/19/19 23 3:07 PM EST documented as of this encounter Care Teams Roll On Worker Relationship Specialty Start Date End Date Emperatriz Stoll FNP [address] [place] [address] PCP - General Family Medicine 07/19/22 02/05/24 Name, MD Joey [address] [place], [place] [phone] PCP - General Internal Medicine 02/06/24 Rosa Deluca, Martha [address] [place] [id number] Pharmacist Internal Medicine 12/03/23 documented as of this encounter
--- OUTSIDE RECORDS SUMMARY | 2024-07-17 13:22 | XMS_ITS | Encounter Summary ---
Author Organization [employer] Address [address] [place] [address] Care Team Providers Care Development Representative Name Role Phone Rosa Deluca PharmD Unavailable [phone] Name, Joey MERINO Primary Care Provider [phone] Encounter Details Date Type Department Care Team (Latest Contact Info) Description 06/18/2024 Travel Social History Tobacco Use Types Packs/Day Years [...] t he electric, gas, oil or water [employer] threatened to shut off services in your [...] 08/04/2024 9:30 AM EST Medication Management [facility] [address] [place] [phone] Rosa Deluca, DamionD [address] [place] [address] 08/25/2024 9:00 AM EDT Clinical Support [facility] [address] [place] [phone] Remedios Calderon RN 10/16/2024 10:00 AM EDT Office Visit [facility] [address] [place] [phone] Cassi Simms [address] [place] [address] documented as of this encounter Goals Goal [...] documented as of this encounter Care Teams Development Representative Relationship Specialty Start Date End Date Name, MD Joey [address] [place] [id number] PCP - General Internal Medicine 02/06/24 Rosa Deluca, Martha [address] [place] [phone] Pharmacist Internal Medicine 12/03/23 documented as of this encounter
--- OUTSIDE RECORDS SUMMARY | 2024-07-17 13:22 | XMS_ITS | Encounter Summary ---
Author Organization [employer] [facility] Address [address] [place] [address] Care Team Providers Care Cement Finisher Apprentice Name Role Phone Emperatriz Stoll Primary Care Provider + Rosa Deluca PharmD Unavailable [phone] Name, Joey MERINO Primary Care Provider [phone] Reason for Visit * Reason Comments Med Refill Encounter Details Date Type Department Care Team ([facility] st Contact Info) Description 01/12/2023 Refill [facility] [address] [place] [address] Emperatriz Stoll FNP [address] [place], [place] [phone] Other chronic pain Social History Tobacco Use Types Packs/Day Years Used Date Smoking Tobacco: Former Cigarettes Passive Smoke Exposure: Never Smokeless Tobacco: Never Alcohol Use Standard Drinks/Week Comments Not Currently 0 (1 standard drink = 0.6 oz pur e alcohol) Depression Answer Date Recorded Patient Health Questionnaire-9 Score 0 12/13/2022 Depression Answer Date Recorded Patient Health Questionnaire-2 [...] suspected to have Coronavirus/COVID-19? No / Unsure 12/13/2022 10:39 AM EDT documented as of this encounter Plan of Treatment Upcoming Encounters Date Type Department Care Team (Late st Contact Info) Description 08/04/2024 9:30 AM EST Medication Management [facility] [address] [place] [address] Rosa Deluca PharmD [address] [place], [place] 08/25/2024 9:00 AM EDT Clinical Support [facility] [address] [place] [address] Remedios Calderon, RN 10/16/2024 10:00 AM EDT Office Visit [facility] [address] [place] [address] Cassi Simms [address] [place] [address] documented as of this encounter Visit Diagnoses Diagnosis Other chronic pain documented in this encounter Additional Health Concerns Assessment Noted Time PHQ-9 Depression Total Score: 0 12/14/19 23 11:09 AM EDT documented as of this encounter Care Teams Cement Finisher Apprentice Relationship Specialty Start Date End Date Emperatriz Stoll FNP [address] [place] [id number] PCP - General Family Medicine 07/19/22 02/05/24 Name, MD Joey [address] [place] [phone] PCP - General Internal Medicine 02/06/24 Rosa Deluca PharmD [address] [place] [phone] Pharmacist Internal Medicine 12/03/23 documented as of this encounter
--- OUTSIDE RECORDS SUMMARY | 2024-07-17 13:22 | XMS_ITS | Clinical Summary ---
Author Organization [employer] Address [address] [place] [address] Care Team Providers Care Grain Unloader Name Role Phone Rosa Deluca PharmD Unavailable [phone] Name, Joey MERINO Primary Care Provider [phone] Allergies No known active allergies Medications albuterol 108 (90 Base) MCG/ACT inhaler Inhale 2 puffs every 4 (four) hours if needed for wheezing. 18 g 023 Active Vascepa 1 g capsule Take 2 capsules by mouth 2 times daily. 023 Active atorvastatin (Lipitor) 80 MG tablet Take 80 mg by mouth in the morning. 023 Active Blood Pressure Monitoring (Comfort Touch BP Cuff/Large) misc 1 kit in the morning. 1 each 023 Active Kerendia 10 MG tablet Take 1 tablet by mouth in the morning. 024 Active glucose blood (FreeStyle Precision Virgil Test) test strip Use to check blood sugar with CGM device as needed 100 each 3 024 2024 Active ezetimibe (Zetia) 10 MG tablet Take 1 tablet (10 mg) by mouth in the morning. 90 tablet 3 024 2024 Active Lancets (OneTouch Delica Plus [id number]) miscIndications: Type 2 diabetes mellitus without complications ([facility]) USE TO TEST BLOOD SUGAR IN THE MORNING 100 each 12 024 Active Aspirin Low Dose 81 MG chewable tabletIndication s:Presence of coronary angioplasty implant and graft CHEW 1 TABLET BY MOUTH EVERY DAY 90 tablet 3 05/06/2 024 Active polyethylene glycol, PEG, 3350 (Glycolax) 17 GM/SCOOP powderIndication s:Other constipation TAKE 17 GM MIXED IN 8 OUNCES OF WATER ONCE DAILY IN THE MORNING 510 g 2 024 Active cyanocobalamin (Vitamin B-12) 500 MCG tablet Take as directed: patient purchasing OTC Active carvedilol (Coreg) 12.5 MG tabletIndication s:Primary hypertension TAKE 1 TABLET BY MOUTH TWICE DAILY 180 tablet 1 024 Active Entresto 24-26 MG tablet TAKE 1 TABLET BY MOUTH TWICE DAILY IN THE MORNING AND IN THE EVENING Active melatonin 3 MG tablet TAKE 1 TABLET BY MOUTH AT BEDTIME NEEDED FOR SLEEP 90 tablet 1 024 Active Continuous Glucose Sensor (FreeStyle Sarina 2 Sensor) [facility] TEST BLOOD SUGAR FOUR TIMES DAILY 1 each 11 024 Active BD Pen Needle Danielle U/F 32G X 4 MM miscIndications: Controlled type 2 diabetes mellitus with complication, with long-term current use of insulin ([facility]) USE DIRECTED ONCE DAILY 100 each 1 Active insulin glargine (Lantus SoloStar) 100 UNIT/ML penIndications:C ontrolled type 2 diabetes mellitus with complication, with long-term current use of insulin ([facility]) Inject subcutaneously 22 units once daily Active Semaglutide,0.25 or 0.5MG/DOS, (Ozempic, 0.25 or 0.5 MG/DOSE,) 2 MG/3ML solution pen-injectorIndi cations:Type 2 diabetes mellitus without complication, with long-term current use of insulin ([facility]) INJECT 0.5 MG SUBCUTANEOUSLY EVERY 7 DAYS IN THE ABDOMEN, THIGHS, OR UPPER ARM, ROTATE INJECTION SITES. 3 mL 3 024 Active folic acid (Folvite) 1 MG tabletIndication s:Dietary counseling TAKE 1 TABLET BY MOUTH EVERY MORNING 30 tablet 1 025 Active Farxiga 10 MGIndications:Co ntrolled type 2 diabetes mellitus without complication, unspecified whether usp insulin use (CMS/[facility]) Take 1 tablet (10 mg) by mouth Once per day. 90 tablet 3 025 2025 Active traMADol (Ultram) 50 MG tabletIndication s:Other chronic pain TAKE 1 TABLET BY MOUTH EVERY TWELVE HOURS NEEDED FOR SEVERE PAIN 56 tablet 025 2024 Active gabapentin (Neurontin) 300 MG capsule TAKE 1 CAPSULE BY MOUTH EVERY MORNING 30 capsule Active Ascorbic Acid (vitamin C) 500 MG tablet TAKE 1 TABLET BY MOUTH EVERY MORNING 30 tablet 025 Active Ferrous Sulfate (iron) 325 (65 Fe) MG tablet TAKE 1 TABLET BY MOUTH EVERY MORNING WITH FOOD 30 tablet Active isosorbide mononitrate ER (Imdur) 60 MG 24 hr tablet Take 60 mg by mouth in the morning. 025 Active isosorbide mononitrate ER (Imdur) 30 MG 24 hr tablet Take 30 mg by mouth in the morning. 023 2024 Discontinued(D ose adjustment) Farxiga 10 MGIndications:Co ntrolled type 2 diabetes mellitus without complication, unspecified whether usp insulin use (CMS/HCC) Take 1 tablet (10 mg) by mouth in the morning. 90 tablet 3 024 2024 Discontinued(R eorder (will not trigger notification to Pharmacy)) traMADol (Ultram) 50 MG tabletIndication s:Other chronic pain TAKE 1 TABLET BY MOUTH EVERY TWELVE HOURS NEEDED FOR SEVERE PAIN 56 tablet 024 2024 Discontinued Ferrous Sulfate (iron) 325 (65 Fe) MG tablet TAKE 1 TABLET BY MOUTH EVERY MORNING WITH BREAKFAST. 30 tablet 025 2024 Discontinued Ascorbic Acid (vitamin C) 500 MG tablet TAKE 1 TABLET BY MOUTH EVERY MORNING 30 tablet 025 2024 Discontinued gabapentin (Neurontin) 300 MG capsule TAKE 1 CAPSULE BY MOUTH EVERY MORNING 30 capsule 025 2024 Discontinued Active Problems Problem Noted Date Diagnosed Date Class 1 obesity 06/24/2024 Advanced periodontitis 04/09/2024 Type 2 diabetes mellitus wit h diabetic chronic kidney disease 03/06/2024 Elevated prostate specific antigen (PSA) 024 Leg cramps 11/28/2023 Assessment & Plan (11/28/2023 6:11 PM EDT): Bl LE edema 1 + pitting edema , no calf tenderness , Pedal pulses are normal w doppler exam No cold extremities to touch,normal skin temp and normal color -advised pt for hydration -ordered today TSH,Chem , mag -will call pt results -advised activity -compressions stockings 20-30 mmHg requested today to [facility] RN -pt has apt w PCP 12/21/2023 ,if ongoing symptoms and no explanation in blood labs will need to consider to r/o sleep dx,neuropathy associated -advised to f w his cards as well Chronic anemia 05/04/2023 05/04/2023 Coronary arteriosclerosis 05/04/20232022 Overview (07/14/2024): History of CAD with ACS 04/2023 with cardiac catheterization and ARI placed to OM2. He has been maintained on dual antiplatelet therapy since that time as well as high-dose statin. He had an echocardiogram 02/22/2024 showing EF 35-40%, grade 1 diastolic dysfunction with regional wall motion abnormality consistent with ischemic cardiomyopathy. (prior echo 08/24/2023 showed EF 51% with inferior and anterior lateral wall motion abnormalities) As led to a nuclear stress test was done on 05/08/2024 showing reversible moderate size defect in the basal and mid anterior wall suggestive of ischemia with fixed defect in the inferior lateral wall which could represent either ischemia or nontransmural infarct, EF 55%. He then had cardiac catheterization on 06/12/2024 showing LAD, om, right PDA stenosis with recommendation for coronary artery bypass grafting. He tells me that he has an appointment with the surgeon on 07/03/2024. Diabetes mellitus 05/04/2023 05/04/2023 Heart failure with normal ejection fraction 06/202205/04/2023 Hyperlipidemia 05/04/2023 05/04/2023 Peripheral neuropathy 05/04/2023 05/04/2023 History of coronary artery stent placement 05/04 Ischemic cardiomyopathy 05/04/2023 Myocardial infarction 05/04/2023 Overview (09/05/2023): see above see above Periodontal disease 08/31/2022 Dental calculus 08/31/2022 Gingival bleeding 08/31/2022 Gingival recession, generalized 08/31/2022 Bleeding gums 08/31/2022 05/04/2023 Generalized gingival recession 08/31/2022 1 07/05/2022 Vitreomacular traction, left 08/28/2022 Abnormal retinal vessels in right eye 08/28/2022 Pseudophakia of both eyes 08/28/2022 Bilateral pseudophakia 08/28/2022 Vitreomacular adhesion of left eye 08/28/2022 05/04/2023 Abnormal vessels of retina 08/28/202205/04 Chronic kidney disease, stage 4 (severe) 023 Hypertension 07/19/2022 Resolved Problems Problem Noted Date Diagnosed Date Resolved Date CKD (chronic kidney disease), stage III 11/29/2022 1 07/05/2022 03/07/2024 Controlled type 2 diabetes m ellitus without complication 07/19/2022 03/07/2024 Encounters Date Type Department Care Team Description 07/16/2024 Orders Only [facility] External Provider, [facility] 07/14/2024 9:45 AM EST Office Visit [facility] [address] [place] [address] Name, MD Joey Coronary arteriosclerosis (Primary Dx); Controlled type 2 diabetes mellitus with complication, with long-term current use of insulin ([facility]) 07/14/[address] [facility] [address] [place] [address] Patricia Thompson DO 07/14/2024 Travel 06/27/[address] [facility] MED & PEDS [address] [place], [place] [phone] NameJoey MD Other chronic pain 06/24/2024 Travel 06/18/2024 9:30 AM EST Office Visit [facility] OPTOMETRY [address] [place] [address] Nick, Jenniffer, OD 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 associated with type 2 diabetes mellitus, macular edema presence unspecified (CMS/HCC) (Primary Dx); History of panretinal photocoagulation; Epiretinal membrane (ERM) of both eyes; Macular atrophy, retinal; Pseudophakia of both eyes; Presbyopia of both eyes 06/18/2024 Travel 06/16/[address] [facility] [address] [place] [address] Emperatriz Stoll FNP 06/14/2024 Refill [facility] [address] [place] [address] Joey Barreto MD Dietary counseling 06/06/2024 11:30 AM EST Office Visit [address] [address] Joey Barreto MD Coronary arteriosclerosis (Primary Dx); Controlled type 2 diabetes mellitus with complication, with long-term current use of insulin (CMS/[facility]) 06/06/2024 Travel 06/05/[address] [address] Monique Esquivel [place] Chart Prep 06/03/2024 Orders Only [facility] Provider, Generic External Data 06/02/2024 Orders Only [facility] DATA DEPARTMENT Provider, Generic External Data 05/27/2024 9:00 AM EST Clinical Support [address] [address] Remedios Calderon RN Other chronic pain (Primary Dx) 05/27/2024 Travel 05/27/[address] [address] Remedios Calderon RN Recommend CVIR TECH Tier 2 05/23/[address] [facility] PEDS [address] [place], [place] [phone] Brea Shahid NP Other chronic pain 05/12/2024 Orders Only [facility] EXTER[facility] DATA DEPARTMENT Provider, Generic External Data 05/12/2024 Travel 05/08/2024 Orders Only [facility] External Provider, [facility] 05/08/[address] [facility] [address] [place] [phone] [facility] Uro OV notes 05/06/2024 Orders Only GENER[facility] EXTERNAL DATA DEPARTMENT Provider, Generic External Data 04/29/[address] [facility] [address] [place] [address] NameJoey MD Med Refill 04/28/[address] [facility] [address] [place] [address] Joey Barreto MD Med Refill 04/28/[address] [facility] PEDS [address], [place] [phone] Name, MD Joey Other chronic pain 04/22/[address] [facility] [address] [place] [address] Rosa Deluca PharmD Type 2 diabetes mellitus without complication, with long-term current use of insulin (CMS/HCC) 04/22/[address] [facility] [address] [place] [address] NameJoey MD Dietary counseling 04/17/2024 Orders Only [facility] [address] [place] [address] NameJoey MD 04/17/[address] [facility]ED[facility] [address], [place] [phone] Emperatriz Stoll FNP Controlled type 2 diabetes mellitus with complication, with long-term current use of insulin (CMS/[facility]) from Last 3 Months Immunizations Name Administration Dates Next Due Hep A, Adult 11/07/2023(Deferred: Patient decision - Reports bad reaction with prior vaccines. Declines all vaccines.) HepB-CpG 06/24/2024, 4,09/07/2023(Deferr ed: Patient decision) Pfizer Covid-19 Vaccine 12+ 11/07/2023(D eferred: Patient decision - Reports bad reaction with prior vaccines. Declines all vaccines.),05/18/2021 Pfizer Covid-19 Vaccine 12+ Bivalent 06/07/2022 Pneumococcal Conjugate PCV 20 01/07/2024 ,11/07/2023(Deferred: Patient decision - Reports bad reaction with prior vaccines. Declines all vaccines.) RSV Bivalent 05/12/2024,06/05/202 4(Deferred: Patient decision - Reports bad reaction with prior vaccines. Declines all vaccines.) SARS-CoV-2, Unspecified 10/06/2020 Tdap 01/01/2024, 4(Deferred: Patient decision) Zoster, Recombinant 06/24/2024, 4,11/07/2023(Deferr ed: Patient decision - Reports bad reaction with prior vaccines. Declines all vaccines.) Family History Medical History Relation Name Comments Hypertension Mother Relation Name Status Comments Mother Social History Tobacco Use Types Packs/Day Years [...] Don't know 06/23/2022 2: 49 PM EST Last Filed Vital Signs Vital Sign Reading Time Taken Comments Blood Pressure 130/64 07/14/2024 9:43 AM EST Pulse 78 07/14/2024 9:43 AM EST Temperature 36.7 ??C (98 ??F) 07/14/2024 9:43 AM EST Respiratory Rate 19 07/14/2024 9:43 AM EST Oxygen Saturation 98% 06/06/2024 11:43 AM EST Inhaled Oxygen Concentration - - Weight 81.7 kg (180 lb 2 oz) 07/14/2024 9:43 AM EST Height 165.1 cm (5' 5 ) 07/14/2024 9:43 AM EST Body Mass Index 29.97 07/14/2024 9:43 AM EST Plan of Treatment Upcoming Encounters Date Type Department Care Team (Late st Contact Info) Description 08/04/2024 9:30 AM EST Medication Management [facility] [address] [place] [address] Rosa Deluca, PharmD [address] [place] [address] 08/25/2024 9:00 AM EDT Clinical Support [facility] [address] [place] [address] Remedios Calderon RN 10/16/2024 10:00 AM EDT Office Visit [facility] ADULT DENTAL [address] [place] [address] Cassi Simms [address] [place] [address] Health Maintenance Due Date Last Done Comments CT Colonography 1960 Colonoscopy 1960 Colorectal Cancer Screening 1960 FIT DNA/Cologuard 1960 FIT 1960 FOBT 1960 HIV Screening 1960 Sigmoidoscopy 1960 Hepatitis C Screening 1978 Dental Oral Exam 04/18/2024 10/16/2023, 08/08/2022 Dental Prophylaxis 10/08/2024 04/09/2024, 0 10/16/2023, 08/31/2022 Dental X-Ray: Bitewings 10/16/2024 10/16/2023, 08/08 Diabetes: Hemoglobin A1C 01/11/2025 02 025, 05/12/2024, 03/07/2024, Additional history exists SDOH Screening 02/27/2025 02/28/2024 Diabetes: Foot Exam 03/07/2025 03/07/2024, 03/07/2024, 03/07/2024, Additional history exists Anal Pap 05/06/2025 05/06/2024 Lipid Panel 06/02/2025 06/02/2024, 04/04, 08/09/2023, Additional history exists Alcohol/Substance Use Screening 06/06/2025 06/06/2024 Depression Screening 06/06/2025 06/06/2024, 06/06/19 25 Eye Exam 06/18/2025 06/18/2024, 06/04, 06/18/2024, Additional history exists Tobacco Screening 07/14/2025 07/14/2024 Dental X-Ray: Full Mouth 08/09/2025 08/08/2022 COVID-19 Vaccine Discontinued 06/07/2022, , 10/06/2020 DTaP/Tdap/Td Vaccines Discontinued 01/01/2024 Pneumococcal Vaccine: 50+ Years Completed 01/07/2024 RSV Patients and Patients Aged 60 years or older Discontinued 05/12/2024 Hepatitis B Vaccines Discontinued 06/24/2024, 01/01/20 24 Zoster Vaccines Discontinued 06/24/2024, 01/07/2024 HIB Vaccines Aged Out No longer eligi ble based on patient's age to complete this topic HPV Vaccines Aged Out No longer eligi ble based on patient's age to complete this topic Hepatitis A Vaccines Discontinued IPV Vaccines Aged Out No longer eligi ble based on patient's age to complete this topic Influenza Vaccine Discontinued Meningococcal Vaccine Aged Out No danette angie eligible based on patient's age to complete this topic RSV under 20 months Aged Out No longe r eligible based on patient's age to complete this topic Rotavirus Vaccines Aged Out No longer eligible based on patient's age to complete this topic Goals Goal Patient Goal Type Associated Problems Recent Progress Patient-Stated? Author Blood Pressure < 140/90 Blood Pressure 130/64(2024 9:43 AM EST) No Donald Johnson Hemoglobin A1c < 7.5 Result Component 6(07/14/2024 9:46 AM EST) No Donald Johnson Procedures Procedure Name Priority Date/Time Associated Diagnosis Comments VASC US LOWER EXTREMITY VENOUS DUPLEX BILATERAL Routine 07/16/2024 8:50 AM EST POCT GLYCATED HEMOGLOBIN, TOTAL Routine 07/14/2024 9:46 AM EST Controlled type 2 diabetes mellitus with complication, with long-term current use of insulin ([facility]) POCT GLUCOSE Routine 07/14/2024 9:46 AM EST Controlled type 2 diabetes mellitus with complication, with long-term current use of insulin ([facility]) OCT, RETINA - OU - BOTH EYES Routine 06/18/2024 9:30 AM EST Epiretinal membrane (ERM) of both eyes POCT GLUCOSE Routine 06/06/2024 11:45 AM EST Controlled type 2 diabetes mellitus with complication, with long-term current use of insulin ([facility]) BASIC METABOLIC PANEL Routine 06/03/2024 10:22 AM EST PROTHROMBIN TIME-INR Routine 06/03/2024 10:22 AM EST CBC WITH AUTO DIFFERENTIAL Routine 06/03/2024 10:22 AM EST LIPID PANEL, STANDARD Routine 06/02/2024 9:33 AM EST POCT TRINITY-14 URINE DRUG SCREEN Routine 05/27/2024 8:55 AM EST Other chronic pain TESTOSTERONE, FREE (DIALYSIS) AND TOTAL,MS Routine 05/12/2024 9:55 AM EST PSA, TOTAL Routine 05/12/2024 9:55 AM EST BASIC METABOLIC PANEL Routine 05/12/2024 9:55 AM EST HEMOGLOBIN A1C Routine 05/12/2024 9:55 AM EST STRESS TEST WITH MYOCARDIAL PERFUSION Routine 05/08/2024 8:01 AM EST CYTOPATH-CELL ENHANCED Routine 05/06/2024 4:37 PM EST LIPID PANEL, STANDARD Routine 04/17/2024 10:23 AM EST BASIC METABOLIC PANEL Routine 04/17/2024 10:23 AM EST PROPHYLAXIS - ADULT Routine 04/09/2024 8 :00 AM EST Gingival bleeding Dental calculus Advanced periodontitis BITEWINGS - 4 RADIOGRAPHIC IMAGES Routine 10/16/2023 10:00 AM EDT Periodontal disease Dental calculus Gingival bleeding Gingival recession, generalized PERIODIC ORAL EVALUATION - ESTABLISHED PATIENT Routine 10/16/2023 10:00 AM EDT INTRAORAL - COMPLETE SERIES OF RADIOGRAPHIC IMAGES Routine 08/08/2022 9:00 AM EST from Last 3 Months or Most Recently Relevant to Health Maintenance Results * VASC Lower Extremity Venous Duplex Bilateral (07/16/2024 8:50 AM EST) 07/16/2024 8:50 AM EST Narrative [facility] IM[facility] - 07/16/2024 10:13 AM EST ? [facility] ?[address] ?[place] [address] ? Ultrasound Report ? Signed ? Patient: Dewitt,Efrain ?MR#: [id number] ? : 1960 ?Acct:[id number] ? Age/Sex: 63 / M ?ADM Date: 02/12/25 ? Loc: HO.US ? Attending Dr: Demarcus Portillo MD ? Ordering Physician: Demarcus Portillo MD ?? Date of Service: 07/16/24 ?? Procedure(s): US venous duplex LE BI ?? Accession Number(s): [id number] ? cc: Emperatriz Stoll NP; Demarcus Portillo MD ? EXAMINATION: ?? US LOWER EXTREMITY VENOUS (MAPPING EXAM), BILATERAL ? CLINICAL INFORMATION: ?? Preoperative planning. Vein mapping. ? COMPARISON: ?? None. ? TECHNIQUE: ?? Color flow triplex imaging and compression Doppler was performed to ?? evaluate both the deep and the superficial systems bilaterally. To ?? evaluate the superficial system, the examination was performed in the ?? upright position. Color-flow Doppler ultrasound and compression ?? ultrasound were utilized. In addition, maneuvers were utilized to ?? demonstrate reflux. ? FINDINGS: ? 1. SUPERFICIAL ULTRASOUND WITH DOPPLER OF RIGHT LOWER EXTREMITY: ? RIGHT GREAT SAPHENOUS VEIN: ?? Saphenofemoral Junction: 0.5 cm; depth: 2.1 cm ?? Proximal Thigh: 0.3 cm; depth: 1.5 cm ?? Mid Thigh: 0.2 cm; depth: 0.8 cm ?? Above Knee: 0.3 cm; depth: 0.8 cm ?? Medial Knee: 0.2 cm; depth: 0.5 cm ?? Mid Calf: 0.2 cm; depth: 0.4 cm ?? Ankle: 0.3 cm; depth: 0.3 cm ? RIGHT SMALL SAPHENOUS VEIN: ?? Saphenopopliteal Junction: 0.1 cm; depth: 0.5 cm ?? Proximal calf: 0.1 cm; depth: 0.5 cm ?? Mid Calf: 0.1 cm; depth: 0.4 cm ?? Distal Calf: 0.2 cm; depth: 0.4 cm ? 1. SUPERFICIAL ULTRASOUND WITH DOPPLER OF LEFT LOWER EXTREMITY: ? LEFT GREAT SAPHENOUS VEIN: ?? Saphenofemoral Junction: 0.5 cm; depth: 2.1 cm ?? Proximal Thigh: 0.2 cm; depth: 1.4 cm ?? Mid Thigh: 0.2 cm; depth: 0.4 cm ?? Above Knee: 0.2 cm; depth: 0.3 cm ?? Medial Knee: 0.2 cm; depth: 0.4 cm ?? Mid Calf: 0.2 cm; depth: 0.4 cm ?? Ankle: 0.2 cm; depth: 0.6 cm ? LEFT SMALL SAPHENOUS VEIN: ?? Saphenopopliteal Junction: 0.2 cm; depth: 0.5 cm ?? Proximal calf: 0.1 cm; depth: 0.5 cm ?? Mid Calf: 0.1 cm; depth: 05 cm ?? Distal Calf: 0.2 cm; depth: 0.4 cm ? US/US venous duplex LE BI ?? IMPRESSION: ?? Bilateral saphenous venous mapping as discussed above. ? Electronically signed by: ??Jacoby Piedra MD ??07/16/2024 10:10 AM EST RP ? Dictated By: ?Jacoby Piedra MD ? Signed By: ?<Electronically signed by Jacoby iPedra MD in OV> ?07/16/24 1010 ? DD/ 0850 ? TD/TT: 07/16/24 0919 ? Tangible Personal Property Appraiser: ? Procedure Note Donotgarimater, Image - 07/16/2024 [place] [address] Ultrasound Report Signed Patient: Efrain DewittMR#: [id number] : 1960cct:[id number] Age/Sex: 63 / MADM Date: 07/16/24 Loc: HO.US Attending Dr: Demarcus Portillo MD Ordering Physician: Demarcus Portillo MD Date of Service: 07/16/24 Procedure(s): US venous duplex LE BI Accession Number(s): [id number] cc: Emperatriz Stoll COMPRESSED GAS TESTER; Demarcus Portillo MD EXAMINATION: US LOWER EXTREMITY VENOUS (MAPPING EXAM), BILATERAL CLINICAL INFORMATION: Preoperative planning. Vein mapping. COMPARISON: None. TECHNIQUE: Color flow triplex imaging and compression Doppler was performed to evaluate both the deep and the superficial systems bilaterally. To evaluate the superficial system, the examination was performed in the upright position. Color-flow Doppler ultrasound and compression ultrasound were utilized. In addition, maneuvers were utilized to demonstrate reflux. FINDINGS: 1. SUPERFICIAL ULTRASOUND WITH DOPPLER OF RIGHT LOWER EXTREMITY: RIGHT GREAT SAPHENOUS VEIN: Saphenofemoral Junction: 0.5 cm; depth: 2.1 cm Proximal Thigh: 0.3 cm; depth: 1.5 cm Mid Thigh: 0.2 cm; depth: 0.8 cm Above Knee: 0.3 cm; depth: 0.8 cm Medial Knee: 0.2 cm; depth: 0.5 cm Mid Calf: 0.2 cm; depth: 0.4 cm Ankle: 0.3 cm; depth: 0.3 cm RIGHT SMALL SAPHENOUS VEIN: Saphenopopliteal Junction: 0.1 cm; depth: 0.5 cm Proximal calf: 0.1 cm; depth: 0.5 cm Mid Calf: 0.1 cm; depth: 0.4 cm Distal Calf: 0.2 cm; depth: 0.4 cm 1. SUPERFICIAL ULTRASOUND WITH DOPPLER OF LEFT LOWER EXTREMITY: LEFT GREAT SAPHENOUS VEIN: Saphenofemoral Junction: 0.5 cm; depth: 2.1 cm Proximal Thigh: 0.2 cm; depth: 1.4 cm Mid Thigh: 0.2 cm; depth: 0.4 cm Above Knee: 0.2 cm; depth: 0.3 cm Medial Knee: 0.2 cm; depth: 0.4 cm Mid Calf: 0.2 cm; depth: 0.4 cm Ankle: 0.2 cm; depth: 0.6 cm LEFT SMALL SAPHENOUS VEIN: Saphenopopliteal Junction: 0.2 cm; depth: 0.5 cm Proximal calf: 0.1 cm; depth: 0.5 cm Mid Calf: 0.1 cm; depth: 05 cm Distal Calf: 0.2 cm; depth: 0.4 cm US/US venous duplex LE BI IMPRESSION: Bilateral saphenous venous mapping as discussed above. Electronically signed by: Jacoby Piedra MD 07/16/2024 10:10 AM EST Dictated By: Jacoby Piedra MD Signed By: <Electronically signed by Jacoby Piedra MD in OV> 07/16/24 1010 DD/ 0850 TD/TT: 07/16/24 0919 Tangible Personal Property Appraiser: us [facility] External Provider CV VASC ULAR PROCEDURES Final Result [facility] [address] [place] [address] [id number] * POCT HGB A1C (07/14/2024 9:46 AM EST) Hemoglobin A1C 6.0 4.0 - 6.0 % QC Media Lot # [id number] Lot# Expiration Date Blood 07/14/2024 9:46 AM EST Joey Name POINT OF CARE TEST ENTER/EDIT OR DERABLES Final Result * POCT Glucose (07/14/2024 9:46 AM EST) Only the most recent of2 resultswithin the time period is included. Glucose Blood, POC 67 60 - 200 mg/dL Comment:Fasting QC Media Lot # [id number] Lot# Expiration Date Blood Capillary blood specimen / Unknown 07/14/2024 9:46 AM EST Joey Barreto MD POINT OF CARE TEST ENTER/EDIT OR DERABLES Final Result * OCT, Retina - OU - Both Eyes (06/18/2024 9:30 AM EST) Narrative Jenniffer Romero, OD - 07/04/2024 11:39 AM EST OCT [...] Patient already followed by Dr. Abbott at [facility]. He will continue his frequent follow-ups there as scheduled. Will monitor here in 1 year. us Abad Nick OD OPHTH TOMOGRAPHY Final Result * (ABNORMAL) CBC auto differential (06/03/2024 10:22 AM EST) White Blood Count 6.8 4.8 - 10.8 X10*3/uL [facility] Red Blood Count 3.86(L) 4.60 - 5.80 X10*6/uL [facility] Hemoglobin 11.6(L) 14.0 - 18.0 g/dl [facility] Hematocrit 36.5(L) 42.0 - 52.0 % [facility] Mean Corpuscular Volume 94.6 80.0 - 98.0 fL [facility] Mean Corpuscular Hemoglobin 30.1 27.0 - 33.0 pg [facility] Mean Corpuscular HGB Conc 31.8 31.0 - 36.0 g/dl [facility] Red Cell Distribution Width 14.2 11.0 - 16.0 % [facility] Platelet Count 258 160 - 400 X10*3/uL [facility] Mean Platelet Volume 10.0 9.4 - 12.4 fL [facility] Neutrophils Percent Auto 60.2 45 - 73 % [facility] Imm Gran Pct Auto 0.3 0.0 - 0.4 % [facility] Lymphocytes Percent Auto 27.0 20 - 40 % [facility] Monocytes Percent Auto 8.3 2 - 11 % [facility] Eosinophils Percent Auto 3.5 0 - 4 % [facility] Basophils Percent Auto 0.7 0 - 2 % [facility] NRBC Pct Auto 0.0 0.0 - 0.2 /100WBC [facility] Neutrophils Absolute Auto 4.1 2.0 - 8.3 x10*3/uL [facility] Imm Gran Abs Auto 0.02 0.00 - 0.03 X10*3/uL [facility] Lymphocytes Absolute Auto 1.8 1.2 - 4.9 X10*3/uL [facility] Monocytes Absolute Auto 0.6 0.1 - 1.2 X10*3/uL [facility] Eosinophils Absolute Auto 0.2 0.0 - 0.4 X10*3/uL [facility] Basophils Absolute Auto 0.1 0.0 - 0.2 X10*3/uL [facility] NRBC Abs Auto 0.000 0.0 - 0.012 X10*3/uL [facility] 06/03/2024 10:2 2 AM EST 06/03/2024 10:22 AM EST Generic External Data Provider LAB BLOOD ORDERAB LES Final Result Performing Organization Address [facility] de Phone Number [facility] [address] [place] [phone] * Prothrombin Time-INR (06/03/2024 10:22 AM EST) Prothrombin Time 11.4 10.9 - 12.4 SEC [facility] INTERNATIONAL NORM RATIO 1.0 0.9 - 1.1 [facility] Comment:INTERNATIONAL NORMAL IZED RATIO (INR) REFERENCE RANGES Reference RangeFor patients not on anticoagulant therapy: 0.9 - 1.1INR ranges for oral anticoagulanttherapy:For prevention and treatment of venous thrombosis and pulmonary embolism: 2.0 - 3.0For acute myocardial infarction with aspirin therapy: 2.0 - 3.0For acute myocardial infarction without aspirin therapy: 3.0 - 4.0For patients with mechanical prosthetic heart valves: 2.5 - 3.5 06/03/2024 10:2 2 AM EST 06/03/2024 10:22 AM EST Generic External Data Provider LAB BLOOD ORDERAB LES Final Result Performing Organization Address [facility] de Phone Number [facility] [address] [place] [phone] * (ABNORMAL) Basic Metabolic Panel (06/03/2024 10:22 AM EST) Only the most recent of3 resultswithin the time period is included. Sodium 142 135 - 145 mmol/L [facility] Potassium 3.8 3.3 - 5.1 mmol/L [facility] Chloride 112(H) 96 - 108 mmol/L [facility] Carbon Dioxide 20(L) 22 - 29 mmol/L [facility] Anion Gap 14 12 - 20 [facility] Urea Nitrogen (BUN) 24(H) 9 - 16 mg/dL [facility] Creatinine, Serum 1.96(H) 0.5 - 1.4 mg/dL [facility] Estimated Glomerular Filt Rate 35 [facility] Comment:Chronic Kidney Disea se: Estimated GFR < 60 mL/min/1.38x6Pfuuck Kidney Disease: Estimated GFR < 15 mL/min/1.73m2 Glucose 69 60 - 115 mg/dL [facility] Calcium 8.9 8.4 - 10.2 mg/dL [facility] 06/03/2024 10:2 2 AM EST 06/03/2024 10:22 AM EST us Generic External Data Provider LAB BLOOD ORDERAB LES Final Result Performing Organization Address City/State/[facility] Co de Phone Number [facility] [address] [place] [phone] * (ABNORMAL) Lipid Panel, Standard (06/02/2024 9:33 AM EST) Only the most recent of2 resultswithin the time period is included. Triglycerides 68 <150 mg/dL [facility] Comment:Desirable Triglyceri de: less than 150 mg/dLBorderline High Triglyceride 150-199 mg/dLHigh Triglyceride: 200-499 mg/dLVery High Triglyceride: greater than or equal to 5OO mg/dL Cholesterol 91 <200 mg/dL [facility] Comment:Desirable Cholestero l: less than 200 mg/dLBorderline High Cholesterol: 200-239 mg/dLHigh Cholesterol: greater than 239 mg/dL LDL Cholesterol Calculated 55 <100 mg/dL [facility] Comment:Desirable LDL: less than 100 mg/dLNear Optimal/Above Optimal LDL: 110- 129 mg/dLBorderline High LDL: 130-159 mg/dLHigh LDL: 160-189 mg/dLVery High LDL: greater than or equal to 190 mg/dL HDL Cholesterol 23(L) >40 mg/dL [facility] Comment:Desirable HDL: great er than 40 mg/dL Note: This HDL assay may give artificially low results in patients with liver disease. 06/02/2024 9:33 AM EST 06/02/2024 9:33 AM EST us Generic External Data Provider LAB BLOOD ORDERAB LES Final Result [facility] [address] [place] [address] [phone] * POCT TRINITY-14 Urine Drug Screen (05/27/2024 8:55 AM EST) Urine Urine specimen obtained by clean catch procedure / Unknown 05/27/2024 8:55 AM EST Remedios Topete RN - 05/27/2024 8:55 AM EST UTOX cup Lot#[id number] Exp. 02/26/26 Internal Pass Control Negative for all substances Joey Barreto MD POINT OF CARE TEST ENTER/EDIT OR DERABLES Final Result * Testosterone, Free (Dialysis) And Total, MS (05/12/2024 9:55 AM EST) Testosterone, Total 390 250 - 1100 ng/dL [facility] Comment:Men with clinically significant hypogonadalsymptoms and testosterone values repeatedly inthe range of the 200-300 ng/dL or less, maybenefit from testosterone treatment afteradequate risk and benefits counseling.For additional information, please refer tohttp://education.[employer].Tigermed/faq/UcvdeWfadeunarebdOWHAAYLFO791(This link is being provided for informational/educational purposes only.)This test was developed and its analytical performancecharacteristics have been determined by [employer] [place], [place]. It hasnot been cleared or approved by the U.S. Food and DrugAdministration. This assay has been validated pursuantto the CLIA regulations and is used for clinicalpurposes. Testosterone, Free 66.3 35.0 - 155.0 pg/mL [facility] Comment:This test was develo ped and its analytical performancecharacteristics have been determined by [employer] [place]. It hasnot been cleared or approved by the U.S. Food and DrugAdministration. This assay has been validated pursuantto the CLIA regulations and is used for clinicalpurposes.THIS TEST WAS PERFORMED AT:[employer] [place] [id number] NOONAN MD,PHD 05/12/2024 9:55 AM EST 05/12/2024 11:39 AM EST Generic External Data Provider LAB BLOOD ORDERAB LES Final Result Performing Organization Address City/[facility]/ZIP Co de Phone Number [facility] [address] [place] [phone] * PSA,Total (05/12/2024 9:55 AM EST) Prostate Specific Antigen 3.78 <0.05 - 4.0 ng/mL [facility] Comment:PSA methodology: Abb jose cruz Alinity i ChemiluminescentMicroparticle Immunoassay (CMIA) 05/12/2024 9:55 AM EST 05/12/2024 11:50 AM EST Generic External Data Provider LAB BLOOD ORDERAB LES Final Result Performing Organization Address City/[facility] Co de Phone Number [facility] [address] [place] [phone] * (ABNORMAL) Hemoglobin A1c (05/12/2024 9:55 AM EST) Hemoglobin A1c 6.4(H) <6.0 % [facility] Comment:Hemoglobin A1C Refer ence Range Adults: 4.8 - 6.0 % Non diabetic: < 6.0 % Goal: < 7.0 %Additional Action Suggested: > 8.0 %Note: Hemoglobin A1c results are invalid for patients with abnormal amounts of HbF. Blood transfusions may impact the HbA1c concentration in the patient sample. Estimated Average Glucose 137 mg/dL [facility] Comment:eAG = Estimated ave rage glucose which is %A1C expressed asaverage glucose, using the formula of the X5C-YsiqsvpJputrwr Glucose study (ADAG), Diabetes Care, Vol.31,#8,Jan. 2007 05/12/2024 9:55 AM EST 05/12/2024 11:39 AM EST us Generic External Data Provider LAB BLOOD ORDERAB LES Final Result [facility] [address] [place] [phone] * Stress test with myocardial perfusion (05/08/2024 8:01 AM EST) 05/08/2024 8:01 AM EST Narrative [facility] - 05/09/2024 1:22 PM EST ? [facility] ?[address] ?[place] [phone] ?Nuclear Medicine Report ? Signed ? Patient: DewittEfrain ?MR#: [id number] ? : 1960 ?Acct:[id number] ? Age/Sex: 63 / M ?ADM Date: 05/08/24 ? Loc: HO.CARD ? Attending Dr: Tl Jones MD ? Ordering Physician: Tl Jones MD ?? Date of Service: 05/08/24 ?? Procedure(s): NM cardiolite stress test ?? Accession Number(s): [id number] ? cc: Emperatriz Stoll NP; Tl Jones MD ? EXERCISE MYOCARDIAL PERFUSION STUDY ? INDICATION: ?? Chest pain to evaluate for myocardial ischemia ? TECHNIQUE: ? The patient was brought in for an exercise perfusion study on ?? 05/08/2024. Patient performed exercise as per Aguilar protocol and was ?? injected ??through the mCi of sestamibi once target heart rate was ?? achieved. Images were obtained using the SPECT gamma camera interlaced ?? with the gating device. Images were obtained in supine position. ? Resting perfusion study was performed on 05/09/2024. Patient was ?? administered 30 mCi of sestamibi intravenously at rest. Images were ?? then obtained in supine position. ? Images were processed with the software and compared side to side in ?? short axis, horizontal long axis and vertical long axis views. ? FINDINGS: ? Raw images were reviewed ? The stress perfusion study showed ??nonattenuated images show moderately ?? to severely reduced uptake in the inferolateral, lateral wall of the LV ?? myocardium. There is also moderately reduced uptake in the basal ?? inferior and mid inferior wall of the LV myocardium. Attenuated ?? corrected images show moderately reduced uptake in the lateral wall of ?? the LV myocardium. The gated study shows normal LV systolic function ?? with calculated LVEF of 55%. LV cavity is mildly dilated in size. The ?? gated study shows normal systolic ??wall thickening and contraction of ?? segments. ? Resting study shows nontender images show persistent reduced uptake in ?? the inferolateral wall but improved uptake in the lateral especially ?? basal lateral wall suggestive reversible defect. Findings are also seen ?? attenuated corrected images.. Gating at rest reveals normal systolic ?? wall motion with ejection fraction at 55%. ? The findings are consistent with fixed defect in the inferolateral wall ?? both on attenuated as well as nonattenuated images which could ?? represent nontransmural infarct versus severe ischemia. Reversible ?? defect in the basal and mid anterolateral wall suggestive of ischemia.. ? NM/NM cardiolite stress test ?? IMPRESSION: ? 1. ??Myocardial perfusion imaging study shows reversible moderate size ?? defect in the basal and mid anterolateral wall suggestive of ischemia ?? with fixed defect in the inferolateral wall which could represents ?? either ischemia or nontransmural infarct.. ?? 2. ??Gated LVEF is 55%. ?? 3. Transient ischemic dilatation not present. ? EKG revealed nondiagnostic due to suboptimal heart rate. ? Electronically signed by: ??Tl Jones MD ??05/09/2024 01:19 PM EST RP ? Dictated By: ?Tl Jones MD ? Signed By: ?<Electronically signed by Tl Jones MD in OV> ?05/09/24 1319 ? DD/DT: 05/08/ 0801 ? TD/TT: 05/09/24 1005 ? Tangible Personal Property Appraiser: ? Procedure Note Donotuseinterpreter, Image - 05/09/2024 [place] [address] Nuclear Medicine Report Signed Patient: Efrain DewittMR#: [id number] : 1Acct:[id number] Age/Sex: 63 / MADM Date: 05/08/24 Loc: [facility] Attending Dr: Tl Jones MD Ordering Physician: Tl Jones MD Date of Service: 05/08/24 Procedure(s): NM cardiolite stress test Accession Number(s): [id number] cc: Emperatriz Stoll COMPRESSED GAS TESTER; Tl Jones MD EXERCISE MYOCARDIAL PERFUSION STUDY INDICATION: Chest pain to evaluate for myocardial ischemia TECHNIQUE: The patient was brought in for an exercise perfusion study on 05/08/2024. Patient performed exercise as per Aguilar protocol and was injected through the mCi of sestamibi once target heart rate was achieved. Images were obtained using the SPECT gamma camera interlaced with the gating device. Images were obtained in supine position. Resting perfusion study was performed on 05/09/2024. Patient was administered 30 mCi of sestamibi intravenously at rest. Images were then obtained in supine position. Images were processed with the software and compared side to side in short axis, horizontal long axis and vertical long axis views. FINDINGS: Raw images were reviewed The stress perfusion study showed nonattenuated images show moderately to severely reduced uptake in the inferolateral, lateral wall of the LV myocardium. There is also moderately reduced uptake in the basal inferior and mid inferior wall of the LV myocardium. Attenuated corrected images show moderately reduced uptake in the lateral wall of the LV myocardium. The gated study shows normal LV systolic function with calculated LVEF of 55%. LV cavity is mildly dilated in size. The gated study shows normal systolic wall thickening and contraction of segments. Resting study shows nontender images show persistent reduced uptake in the inferolateral wall but improved uptake in the lateral especially basal lateral wall suggestive reversible defect. Findings are also seen attenuated corrected images.. Gating at rest reveals normal systolic wall motion with ejection fraction at 55%. The findings are consistent with fixed defect in the inferolateral wall both on attenuated as well as nonattenuated images which could represent nontransmural infarct versus severe ischemia. Reversible defect in the basal and mid anterolateral wall suggestive of ischemia.. NM/NM cardiolite stress test IMPRESSION: 1. Myocardial perfusion imaging study shows reversible moderate size defect in the basal and mid anterolateral wall suggestive of ischemia with fixed defect in the inferolateral wall which could represents either ischemia or nontransmural infarct.. 2. Gated LVEF is 55%. 3. Transient ischemic dilatation not present. EKG revealed nondiagnostic due to suboptimal heart rate. Electronically signed by: Tl Jones MD 05/09/2024 01:19 PM EST Dictated By: Tl Jones MD Signed By: <Electronically signed by Tl Jones MD in OV> 05/09/24 1319 DD/ 0801 TD/TT: 05/09/24 1005 Tangible Personal Property Appraiser: [facility] External Provider CV STRE SS PROCEDURES Edited Result - Final Performing Organization Address City/State/[facility] Co de Phone Number [facility] [address] [place] [phone] * Cytopath-cell enhanced (05/06/2024 4:37 PM EST) 05/06/2024 4:37 PM EST 05/07/2024 1:25 PM EST [facility] - 05/09/2024 9:42 AM EST ----- ------- Name: Efrain Dewitt ? Age/Sex: 63/M ? : 1960 Unit#: [id number] ?? Attend Dr: Elmira Mcdonald [employer]-BC ?Re05/06/24 ?Status: DEP REF ? Location: .LAB ?Disch: ? ----- ------- SPEC : [id number] ?RECD: 05/07/24-5 ? STATUS: ??SOUT ? REQ NUM: [id number] ? ARPAN: 05/06/24-163 ? SUBM DR: Elmira Mcdonald [employer]BC ? ENTERED: ??05/07/24-1414 ?SP TYPE: Cytology ? OTHR DR: Emperatriz Stoll COMPRESSED GAS TESTER ? ORDERED: ??Cyto-enhanced ? Diagnosis ?? Urine: ??Negative for high-grade urothelial carcinoma. ??See comment. ? COMMENT: Paucicellular specimen consisting of occasional single urothelial cells with ?? degenerative changes, few squamous cells, red blood cells and occasional lymphocytes. ?Clinical History Other microscopic hematuria ? Material Received ?? Urine ? Gross Description Received is 25 cc of clear yellow fluid from which a ThinPrep slide is prepared. Copies To: ?? Emperatriz Stoll COMPRESSED GAS TESTER ?? [address] ?? [place] [employer] ?? [phone] ?? Elmira Mcdonald [facility] ?? [facility] Services ?? [address] ?? [place] [employer] ?? [phone] ?? [email or web address] ----- ------- Signed (signature on file) Jeanmarie Chavez MD 05/09/24 0942 ? ----- ------- ? END OF REPORT ? us Generic External Data Provider LAB CYTOLOGY SPEEDY DONG Final Result [facility] [address] [place] [phone] from Last 3 Months Insurance [facility] Care Teams Grain Unloader Relationship Specialty Start Date End Date Name, MD Joey [address] [place] [address] PCP - General Internal Medicine 02/06/24 Rosa Deluca, DamionD [address] [place] [address] Pharmacist Internal Medicine 12/03/23
--- OUTSIDE RECORDS SUMMARY | 2024-07-17 13:22 | XMS_ITS | Encounter Summary ---
Author Organization [employer] Address [address] [place] [address] Care Team Providers Care Instrument Person Name Role Phone Rosa Deluca PharmD Unavailable [phone] Name, Joey MERINO Primary Care Provider [phone] Reason for Visit * Reason Comments Med Refill Encounter Details Date Type Department Care Team ([facility] st Contact Info) Description 06/16/2024 Refill [facility] [address] [place] [address] Emperatriz Stoll FNP [address] [place] [address] Social History Tobacco Use Types Packs/Day Years [...] Description 08/04/2024 9:30 AM EST Medication Management [facility] [address] [place] [phone] Rosa Deluca, PharmD [address] [place] [address] 08/25/2024 9:00 AM EDT Clinical Support [facility] [address] [place] [address] Remedios Calderon RN 10/16/2024 10:00 AM EDT Office Visit [facility] [address] [place] [address] Cassi Simms [address] [place] [address] documented as of this encounter Goals Goal Patient Goal Type Associated Problems Recent Progress Patient-Stated? Author Blood Pressure < 140/90 Blood Pressure 130/64(2024 9:43 AM EST) Donald Biggs Hemoglobin A1c < 7.5 Result Component 6(07/14/2024 9:46 AM EST) No Donald Johnson documented as of this encounter Visit Diagnoses Not on filedocumented in this encounter Additional Health Concerns Assessment Noted Time PHQ-9 Depression Total Score: 8 06/06/19 25 11:44 AM EST documented as of this encounter Care Teams Instrument Person Relationship Specialty Start Date End Date Name, MD Joey [address] [place] [address] PCP - General Internal Medicine 02/06/24 Rosa Deluca, Martha [address] [place] [address] Pharmacist Internal Medicine 12/03/23 documented as of this encounter
--- OUTSIDE RECORDS SUMMARY | 2024-07-17 13:22 | XMS_ITS | Encounter Summary ---
Author Organization [employer] Address [address] [place] [address] Care Team Providers Care Deputy Brand Inspector Name Role Phone Rosa Deluac PharmD Unavailable [phone] Name, Joey MERINO Primary Care Provider [phone] Encounter Details Date Type Department Care Team (Latest Contact Info) Description 06/24/2024 Travel Social History Tobacco Use Types Packs/Day [...] t he electric, gas, oil or water [facility] threatened to shut off services in your [...] Description 08/04/2024 9:30 AM EST Medication Management [facility] [address] [place] [phone] Rosa Deluca, DamionD [address] [place] [address] 08/25/2024 9:00 AM EDT Clinical Support [facility] [address] [place] [phone] Remedios Calderon RN 10/16/2024 10:00 AM EDT Office Visit [facility] [address] [place] [phone] Cassi Simms [address] [place] [address] documented as of this encounter Goals Goal [...] documented as of this encounter Care Teams Deputy Brand Inspector Relationship Specialty Start Date End Date Name, MD Joey [address] [place] [phone] PCP - General Internal Medicine 02/06/24 Rosa Deluca, Martha [address] [place] [phone] Pharmacist Internal Medicine 12/03/23 documented as of this encounter
--- OUTSIDE RECORDS SUMMARY | 2024-07-17 13:22 | XMS_ITS | Encounter Summary ---
Demographics Address [address] [place] [address] [address] [place] [address] Mobile Phone Home Phone Email Address Preferred Language es Marital Status Evangelical Affiliation Unknown Race White Ethnic Group or Author Organization [employer] Address [address] [place] [address] Care Team Providers Care Desk Clerks Supervisor Name Role Phone Rosa Deluca PharmD Unavailable [phone] Name, Joey MERINO Primary Care Provider [phone] Encounter Details Date Type Department Care Team ([facility] st Contact Info) Description 07/16/2024 Orders Only [facility] External Provider, [facility] Social History Tobacco Use Types Packs/Day Years [...] Description 08/04/2024 9:30 AM EST Medication Management [facility] MEDICINE [address] [place] [address] Rosa Deluca PharmD [address] [place] [address] 08/25/2024 9:00 AM EDT Clinical Support [facility] MEDICINE [address] [place] [address] Remedios Calderon RN 10/16/2024 10:00 AM EDT Office Visit [facility] ADULT DENTAL [address] [place] [address] Cassi Simms [address] [place] [address] documented as of this encounter Goals Goal Patient Goal Type Associated Problems Recent Progress Patient-Stated? Author Blood Pressure < 140/90 Blood Pressure 130/64(2024 9:43 AM EST) No Donald Johnson Hemoglobin A1c < 7.5 Result Component 6(07/14/2024 9:46 AM EST) No Donald Johnson documented as of this encounter Procedures Procedure Name Priority Date/Time Associated Diagnosis Comments [facility] US LOWER EXTREMITY VENOUS DUPLEX BILATERAL Routine 07/16/2024 8:50 AM EST documented in this encounter Results * [facility] US Lower Extremity Venous Duplex Bilateral (07/16/2024 8:50 AM EST) 07/16/2024 8:50 AM EST Narrative [facility] IMAGING - 07/16/2024 10:13 AM EST ? [facility] ?[address] ?[place] [address] ? Ultrasound Report ? Signed ? Patient: Dewitt,Efrain ?MR#: [id number] ? : 1960 ?Acct:[id number] ? Age/Sex: 63 / M ?ADM Date: 07/16/24 ? Loc: HO.US ? Attending Dr: Demarcus Portillo MD ? Ordering Physician: Demarcus Portillo MD ?? Date of Service: 07/16/24 ?? Procedure(s): US venous duplex LE BI ?? Accession Number(s): [id number] ? cc: Emperatriz Stoll NP; Demarcus Portillo [...] ? Signed By: ?<Electronically signed by Jacoby Piedra MD in OV> ?07/16/24 1010 ? DD/ 0850 ? TD/TT: 07/16/24 0919 ? Ultrasound Spec: ? Procedure Note Nahed, Image - 07/16/[address] [address] Ultrasound Report Signed Patient: Efrain Dewitt#: [id number] : 1Acct:[id number] Age/Sex: 63 / MADM Date: 07/16/24 Loc: HO.US Attending Dr: Demarcus Portillo MD Ordering Physician: Demarcus Portillo MD Date of Service: 07/16/24 Procedure(s): US venous duplex LE Accession Number(s): [id number] cc: Emperatriz Stoll STORE RECEIVING CLERK; Demarcus Portillo MD EXAMINATION: US LOWER EXTREMITY [...] Jacoby Piedra MD 07/16/2024 10:10 AM EST RP Dictated By: Jacoby Piedra MD Signed By: <Electronically signed by Jacoby Piedra MD in OV> 07/16/24 1010 DD/ 0850 TD/TT: 07/16/24 0919 Ultrasound Spec: us [facility] External Provider CV VASC ULAR PROCEDURES Final Result [facility] IMAGING [address] [place] [address] documented in this encounter Visit Diagnoses Not on filedocumented in this encounter Additional Health Concerns Assessment Noted Time PHQ-9 Depression Total Score: 8 06/06/19 25 11:44 AM EST documented as of this encounter Care Teams Desk Clerks Supervisor Relationship Specialty Start Date End Date Name, MD Joey [address] [place] [address] PCP - General Internal Medicine 02/06/24 Rosa Deluca PharmD [address] [place] [address] Pharmacist Internal Medicine 12/03/23 documented as of this encounter
--- OUTSIDE RECORDS SUMMARY | 2024-07-17 13:22 | XMS_ITS | Encounter Summary ---
Author Organization [employer] Address [address] 7[address] [place] [address] Care Team Providers Care Dat Instructor Name Role Phone Rosa Deluca PharmD Unavailable [phone] Name, Joey MERINO Primary Care Provider [phone] Reason for Visit * Reason Comments Med Refill Patient walked in re questing med refill for tramadol. Patient stated he is due every of every month. Encounter Details Date Type Department Care Team (Late st Contact Info) Description 06/27/2024 Refill [facility] [address] [place] [address] Name, MD Joey [address] [place] [address] Other chronic pain Social History Tobacco Use [...] PM EST documented as of this encounter Miscellaneous Notes * Telephone Encounter - Fanta Sullivan - 06/27/2024 10:05 AM EST Patient walked in requesting med refill for tramadol. Patient stated he is due every of every month. documented in this encounter Plan of Treatment Upcoming Encounters Date Type Department Care Team (Late st Contact Info) Description 08/04/2024 9:30 AM EST Medication Management [facility] MEDICINE [address] [place] [address] Rosa Deluca, PharmD 230 [place] [address] 08/25/2024 9:00 AM EDT Clinical Support [facility] MEDICINE [address] [place] [address] Remedios Calderon, KYLER 10/16/2024 10:00 AM EDT Office Visit [facility] ADULT DENTAL [address] [place] [address] Cassi Simms [address] [place] [address] documented as of this encounter Goals Goal [...] documented as of this encounter Care Teams Dat Instructor Relationship Specialty Start Date End Date Name, MD Joey 230 [place] [address] PCP - General Internal Medicine 02/06/24 Rosa Deluca PharmD [address] [place] [address] Pharmacist Internal Medicine 12/03/23 documented as of this encounter
--- OUTSIDE RECORDS SUMMARY | 2024-07-17 13:22 | XMS_ITS | Encounter Summary ---
Author Organization [employer] Address [address] 7t [place] [address] Care Team Providers Care Supervisor Backfilling Name Role Phone Rosa Deluca PharmD Unavailable [phone] Name, Joey MERINO Primary Care Provider [phone] Encounter Details Date Type Department Care Team (Latest Contact Info) Description 07/14/2024 Travel Social History Tobacco Use Types Packs/Day [...] t he electric, gas, oil or water Collactive threatened to shut off services in your [...] Description 08/04/2024 9:30 AM EST Medication Management [facility] MEDICINE [address] [place] [address] Rosa Deluca, DamionD [address] [place] [address] 08/25/2024 9:00 AM EDT Clinical Support [facility] MEDICINE [address] [place] [address] Remedios Calderon RN 10/16/2024 10:00 AM EDT Office Visit [facility] ADULT DENTAL [address] [place] [address] Cassi Simms [address] [place] [address] documented as of this encounter Goals Goal [...] documented as of this encounter Care Teams Supervisor Backfilling Relationship Specialty Start Date End Date Name, MD Joey [address] [place] [address] PCP - General Internal Medicine 02/06/24 Rosa Deluca, Martha [address] [place] [address] Pharmacist Internal Medicine 12/03/23 documented as of this encounter
--- OUTSIDE RECORDS SUMMARY | 2024-07-17 13:22 | XMS_ITS | Encounter Summary ---
Author Organization [employer] Address [address] 7t [place] [address] Care Team Providers Care Access Liaison Name Role Phone Emperatriz Stoll Primary Care Provider [phone] Rosa Deluca PharmD Unavailable [phone] Name, Joey MERINO Primary Care Provider [phone] Reason for Visit * Reason Onset Date Comments FYI 04/19/2023 Encounter Details Date Type Department Care Team ([facility] st Contact Info) Description 04/19/2023 Telephone [facility] MEDICINE [address] [place], [place] [phone] Emperatriz Stoll FNP [address] [place] [address] FY Social History Tobacco Use Types Packs/Day Years [...] encounter Miscellaneous Notes * Telephone Encounter - Ebony Stock RN - 04/20/2023 1:50 PM EST FYI Please review and advise if needed. * Telephone Encounter - Maribell Torres - 04/19/2023 8:18 AM EST Tc from [place] [facility] would like to inform PCP that pt was admitted at [facility] from 04/10/23-04/17/23 for Chest pain, fever and SOB. States they placed a stent, pt was diagnosed with pericarditis. Pt was advised to follow up with Dr. Jones Business Supervisor within 3-4 weeks. Also stated pt will be visited by a community nurse from [facility]. Advised will leave a message as FYI if any questions please contact at [phone] documented in this encounter Plan of Treatment Upcoming Encounters Date Type Department Care Team (Late st Contact Info) Description 08/04/2024 9:30 AM EST Medication Management [facility] MEDICINE [address] [place] [address] Rosa Deluca PharmD [address] [place] [address] 08/25/2024 9:00 AM EDT Clinical Support [facility] [address] [place] [address] Remedios Calderon RN 10/16/2024 10:00 AM EDT Office Visit [facility] ADULT DENTAL [address] [place] [address] Cassi Simms [address] [place] [address] documented as of this encounter Goals Goal Patient Goal Type Associated Problems Recent Progress Patient-Stated? Author Blood Pressure < 140/90 Blood Pressure 130/64(2024 9:43 AM EST) No Donald Johnsno Hemoglobin A1c < 7.5 Result Component 6(07/14/2024 9:46 AM EST) No Donald Johnson documented as of this encounter Visit Diagnoses Not on filedocumented in this encounter Additional Health Concerns Assessment Noted Time PHQ-9 Depression Total Score: 0 12/14/19 23 11:09 AM EDT documented as of this encounter Care Teams Access Liaison Relationship Specialty Start Date End Date Em[place] [address] PCP - General Family Medicine 07/19/22 02/05/24 Joey Barreto MD [place], [place] [phone] PCP - General Internal Medicine 02/06/24 Rosa Deluca, Martha [address] [place] [address] Pharmacist Internal Medicine 12/03/23 documented as of this encounter
--- OUTSIDE RECORDS SUMMARY | 2024-07-17 13:22 | XMS_ITS | Encounter Summary ---
Author Organization [facility] Address [address] [address] Phone Care Team Providers Care Lining Parts Sewer Name Role Phone Name, Joey MERINO Primary Care Provider [phone] Reason for Visit * Reason Comments Chronic Kidney Disease Encounter Details Date Type Department Care Team (Late st Contact Info) Description 07/16/2024 3:15 PM EST Office Visit [facility] [address] [address] Patricia Fulton ARNP [address] [address] Chronic kidney disease, stage 4 (severe) (HCC) (Primary Dx); Hypertension; Renal osteodystrophy; Hyperkalemia Social History Tobacco Use Types Packs/Day Years Used Date Smoking Tobacco: Never Smokeless Tobacco: Never Alcohol Use Standard Drinks/Week Comments Never 0 (1 standard drink = 0.6 oz pur e alcohol) Sex and Gender Information Value Date Recorded Sex Assigned at Not on file Legal Sex Male 11:45 AM EST Gender Identity Not on file Sexual Orientation Not on file documented as of this encounter Last Filed Vital Signs Vital Sign Reading Time Taken Comments Blood Pressure 104/77 07/16/2024 3:39 PM EST Pulse 83 07/16/2024 3:39 PM EST Temperature - - Respiratory Rate - - Oxygen Saturation - - Inhaled Oxygen Concentration - - Weight 81.6 kg (180 lb) 07/16/2024 3:39 PM EST Height - - Body Mass Index - - documented in this encounter Plan of Treatment Upcoming Encounters Date Type Department Care Team (Latest Contact Info) Description 07/23/2024 Orders Only [facility] [address] [place] [phone] Donaldo PatriciaMASOOD thomas [address] [address] Chronic kidney disease, stage 4 (severe) (HCC); Hypertension; Hyperkalemia 08/04/2024 Orders Only [facility] [address] [place] [address] Kevin Gates MD [address] [address] Chronic kidney disease, stage 4 (severe) (HCC); Renal osteodystrophy 01/12/2025 1:15 PM EDT Office Visit [facility] [address] [address] Kevin Gates MD [address] [address] Scheduled Orders Name Type Priority Associated Diagnoses Orde r Schedule Basic metabolic panel Lab Routine Chronic kidney disease, stage 4 (severe) (HCC) Hypertension Hyperkalemia Expected: 07/16/2024, Expires: 08/13/2025 Basic metabolic panel Lab Routine Chronic kidney disease, stage 4 (severe) (HCC) Hypertension Hyperkalemia Expected: 07/23/2024, Expires: 08/01/2024 PTH, intact Lab Routine Chronic kidney disease, stage 4 (severe) (HCC) Hypertension Renal osteodystrophy Hyperkalemia Expected: 12/28/2024, Expires: 02/01/2025 Renal function panel Lab Routine Chronic kidney disease, stage 4 (severe) (HCC) Hypertension Renal osteodystrophy Hyperkalemia Expected: 12/28/2024, Expires: 02/01/2025 CBC Lab Routine Chronic kidney disease, stage 4 (severe) (HCC) Hypertension Renal osteodystrophy Hyperkalemia Expected: 12/28/2024, Expires: 02/01/2025 Urine Albumin / Creatinine Ratio Lab Routine Chronic kidney disease, stage 4 (severe) (HCC) Hypertension Renal osteodystrophy Hyperkalemia Expected: 12/28/2024, Expires: 02/01/2025 Urine Protein / creatinine ratio Lab Routine Chronic kidney disease, stage 4 (severe) (HCC) Hypertension Renal osteodystrophy Hyperkalemia Expected: 12/28/2024, Expires: 02/01/2025 documented as of this encounter Procedures Procedure Name Priority Date/Time Associated Diagnosis Comments EXT RESULT ENTRY Routine 07/08/2024 documented in this encounter Results * (ABNORMAL) EXT RESULT ENTRY (07/08/2024) Hemoglobin 12.5(A) 13.5 - 17.5 Hematocrit 38.0(A) 41.0 - 53.0 Platelets 309 150 - 399 10*3/UL Sodium 145 137 - 147 Potassium 6.2(A) 3.4 - 5.5 Carbon Dioxide 21 mmol/L BUN 35(A) 4 - 21 mg/dL Creatinine 2.28(A) 0.60 - 1.30 mg/dL Calcium 9.7 8.7 - 10.7 mg/dL eGFR Non-Afr Iraqi 31 07/08/2024 us Historical Provider LAB BLOOD ORDERABLES Malena l Result documented in this encounter Visit Diagnoses Diagnosis Chronic kidney disease, stage 4 (severe) (HCC)- Primary Hypertension Renal osteodystrophy Hyperkalemia Chronic kidney disease, stage 4 (severe) (HCC) Hypertension Hyperkalemia Chronic kidney disease, stage 4 (severe) (HCC) Renal osteodystrophy documented in this encounter Care Teams Lining Parts Sewer Relationship Specialty Start Date End Date Name, MD Joey [address] [place] [address] PCP - General Internal Medicine 07/16/24 documented as of this encounter
--- OUTSIDE RECORDS SUMMARY | 2024-07-17 13:23 | XMS_ITS | Encounter Summary ---
Author Organization [facility] Address [address] [facility] [address] [place] [address] Phone Care Team Providers Care Lithostripper Name Role Phone Name, Joey EMRINO Primary Care Provider [phone] Encounter Details Date Type Department Care Team (Late st Contact Info) Description 08/09/2022 Telephone [facility] [address] [facility] [address] [place] [address] Patricia Deras Social History Tobacco Use [...] Orders Only [facility] [address] [facility] [address] [place] [address] Patricia Fulton ARNP [address] [facility] [address] [place] [address] Chronic kidney disease, stage 4 (severe) (HCC); Hypertension; Hyperkalemia 08/04/2024 Orders Only [facility] [address] [place] [address] Kevin Gates MD [address] [address] Chronic kidney disease, stage 4 (severe) (HCC); Renal osteodystrophy 01/12/2025 1:15 PM EDT Office Visit [facility] [address] [phone] Kevin Gates MD [address] [phone] documented as of this encounter Visit Diagnoses Not on filedocumented in this encounter Care Teams Lithostripper Relationship Specialty Start Date End Date Name, MD Joey [address] [place] [address] PCP - General Internal Medicine 07/16/24 documented as of this encounter
--- OUTSIDE RECORDS SUMMARY | 2024-07-17 13:23 | XMS_ITS | Encounter Summary ---
Author Organization [employer] Address [address] [facility] [address] 7t [place] [address] Care Team Providers Care Bessemer Bottom Maker Name Role Phone Emperatriz Stoll Primary Care Provider [phone] Rosa Deluca PharmD Unavailable [phone] Name, Joey MERINO Primary Care Provider [phone] Reason for Visit * Reason Comments Med Refill Encounter Details Date Type Department Care Team ([facility] st Contact Info) Description 2023 Refill [facility] MEDICINE [address] [place] [address] Emperatriz Stoll FNP [address] [place], [place] [phone] Social History Tobacco Use Types Packs/Day Years [...] enough money to get more: Never True 10/ Transportation Answer Date Recorded In the past [...] Description 08/04/2024 9:30 AM EST Medication Management [facility] MEDICINE [address] [place] [address] Rosa Deluca, DamionD [address] [place] [address] 08/25/2024 9:00 AM EDT Clinical Support [facility] MEDICINE [address] [place] [address] Remedios Calderon RN 10/16/2024 10:00 AM EDT Office Visit [facility] ADULT DENTAL [address] [place] [address] Cassi Simms [address] [place] [address] documented as of this encounter Goals Goal [...] documented as of this encounter Care Teams Bessemer Bottom Maker Relationship Specialty Start Date End Date Emperatriz Stoll FNP [address] [place] [address] PCP - General Family Medicine 07/19/22 02/05/24 Name, MD Joey [address] [place] [address] PCP - General Internal Medicine 02/06/24 Rosa Deluca, DamionD [address] [place] [address] Pharmacist Internal Medicine 12/03/23 documented as of this encounter
--- OUTSIDE RECORDS SUMMARY | 2024-07-17 13:23 | XMS_ITS | Encounter Summary ---
Author Organization [facility] Address [address] [facility] [address] [address]t [place] [address] Care Team Providers Care Dinkey Engine Operator Name Role Phone Emperatriz Stoll Primary Care Provider +2 Rosa Deluca PharmD Unavailable [phone] Name, Joey MERINO Primary Care Provider [phone] Encounter Details Date Type Department Care Team (Late Contact Info) Description 08/21/2022 Orders Only [facility] MEDICINE [address] [place] [address] Emperatriz Stoll FNP [address] [place], [place] [phone] Social History Tobacco Use Types Packs/Day Years [...] suspected to have Coronavirus/COVID-19? No / Unsure 08/14/2022 9:43 AM EDT documented as of this encounter Plan of Treatment Upcoming Encounters Date Type Department Care Team (Late Contact Info) Description 08/04/2024 9:30 AM EST Medication Management [facility] MEDICINE [address] [place] [address] Rosa Deluca PharmD [address] [place] [address] 08/25/2024 9:00 AM EDT Clinical Support [facility] MEDICINE [address] [place] [address] Remedios Calderon, KYLER 10/16/2024 10:00 AM EDT Office Visit [facility] ADULT DENTAL [address] [place] [address] Cassi Simms [address] [place] [address] documented as of this encounter Visit Diagnoses Not on filedocumented in this encounter Additional Health Concerns Assessment Noted Time PHQ-9 Depression Total Score: 7 07/19/19 23 3:07 PM EST documented as of this encounter Care Teams Dinkey Engine Operator Relationship Specialty Start Date End Date Emperatriz Stoll FNP [address] [place] [address] PCP - General Family Medicine 07/19/22 02/05/24 Joey Barreto MD [address] [place] [address] PCP - General Internal Medicine 02/06/24 Rosa Deluca PharmD [address] [place] [address] Pharmacist Internal Medicine 12/03/23 documented as of this encounter
--- OUTSIDE RECORDS SUMMARY | 2024-07-17 13:23 | XMS_ITS | Patient Health Record ---
Author Organization [facility] Address [address] [address] Care Team Providers Care Mixer Driver Name Role Phone Data, Migration. Unavailable [phone] Reason For Referral No Information Medications Medication SIG (Take, Route, Frequency, Duration) Notes Start Date End Date Status Carvedilol 12.5 MG Oral 0 Source DrugNa me : carvedilol; Prescribed by : SIG : Active Lisinopril-hydroCHLORO thiazide 20-12.5 MG Oral 0 Source DrugName : lisinopril-hydroc hlorothiazide; Prescribed by : SIG : Active Zantac 300 Source DrugName : Zantac; Prescribed by : SIG : Take 1 tablet by mouth twice a day as directed for 30 days 08/17/2017 Active amlodipine 0 Source DrugName : amlodipine; Prescribed by : SIG : Active Lantus U-100 Insulin 0 Source Drug Name : Lantus U-100 Insulin; Prescribed by : SIG : Active atorvastatin 0 Source DrugName : atorvastatin; Prescribed by : SIG : Active clopidogrel 0 Source DrugName : clopidogrel; Prescribed by : SIG : Active Ferrous Sulfate 325 (65 Fe) MG Oral 0 Source DrugName : ferrous sulfate; Prescribed by : SIG : Active losartan 0 Source DrugName : losartan; Prescribed by : SIG : Active Dorzolamide-Timolol 0 Source DrugN tarsha : dorzolamide-timol ol; Prescribed by : SIG : Active Naproxen 500 Source DrugName : naproxen; Prescribed by : SIG : Take 1 tablet by mouth once a day Active metformin 0 Source DrugName : metformin; Prescribed by : SIG : Active neomycin-polymyxin B-dexameth 0 Source DrugName : neomycin-polymyxi n B-dexameth; Prescribed by : SIG : Active Spironolactone 50 MG Oral 50 Source Drug Name : spironolactone; Prescribed by : SIG : Take 1 tablet by mouth once a day Active Problems Problem Type SNOMED Code ICD Code Onset Dates Problem Status W/U Status Risk Notes Problem Heartburn (24205891) Heartburn (R12) 08/18/19 18 Active confirmed QK114-Tbkonqa rn Problem Acid reflux (965935076) Acid reflux (K21.9) 08/18/19 18 Active confirmed IA007-Yyea reflux Problem Epigastric pain (63689466) Abdominal Pain Epigastric (R10.13) 08/18/19 18 Active confirmed ED514-Stukeos al Pain Epigastric Problem Flatulence, eructation and gas pain (778815741) Bloating /gas symptom (R14.0) 08/18/19 18 Active confirmed SX334-Fnapgyt g /gas symptom Plan Of Treatment No Information Medical (General) History Surgical History Surgery Date(Month/Year) Stent (1) 2016 catheterization 2017 Eye Surgery (Right) 2016
--- OUTSIDE RECORDS SUMMARY | 2024-07-17 13:23 | XMS_ITS | Clinical Summary ---
Author Organization [facility] Address [address] [place] [address] Phone Care Team Providers Care President Commercial Bank Name Role Phone Name, Joey MERINO Primary Care Provider [phone] Allergies No known active allergies Medications amLODIPine (NORVASC) 10 MG tablet Take 10 mg by mouth in the morning. 07/19/19 23 Active carvedilol (COREG) 12.5 MG tablet Take 12.5 mg by mouth in the morning and 12.5 mg in the evening. 07/19/19 23 Active Dapagliflozin Propanediol (Farxiga) 10 MG tablet Take 10 mg by mouth daily 07/19/19 23 Active gabapentin (NEURONTIN) 100 MG capsule Take 100 mg by mouth in the morning and 100 mg at noon and 100 mg in the evening. 07/19/19 23 Active Ventolin HFA 108 (90 Base) [...] (one) time each day 11/28/19 23 Active Lantus SoloStar 100 UNIT/ML injection INJECT 20 UNITS SUBCUTANEOUSLY AT BEDTIME 10/27/19 23 Active isosorbide mononitrate (IMDUR) 30 MG 24 hr tablet Take 1 tablet by mouth 1 (one) time each day 11/28/19 23 Active Kerendia 10 MG tablet TAKE 1 TABLET BY MOUTH EVERY MORNING 90 tablet 2 05/19/20 24 Active sacubitril-valsa rtan (Entresto) 24-26 MG per tablet Take 1 tablet by mouth in the morning and 1 tablet in the evening. Active ezetimibe (ZETIA) 10 MG tablet Take 10 mg by mouth 1 (one) time each day Active Sodium Zirconium Cyclosilicate 5 g packIndications: Chronic kidney disease, stage 4 (severe) ([facility]),Hypertensi on,Hyperkalemia Take 1 packet by mouth 1 (one) time each day for 3 days 3 each 07/16/19 25 025 Active losartan (COZAAR) 25 MG tablet Take 25 mg by mouth in the morning. 07/19/19 025 Discontin ued(Med List Maintenan ce) fenofibrate (TRIGLIDE) 160 MG tablet Take 160 mg by mouth 1 (one) time each day 06/28/19 025 Discontin ued(Med List Maintenan ce) furosemide (LASIX) 20 MG tablet Take 1 tablet by mouth 1 (one) time each day 11/25/19 025 Discontin ued(Med List Maintenan ce) Vascepa 1 g capsule Take 1 mg by mouth 2 (two) times a day 11/28/19 025 Discontin ued(Med List Maintenan ce) traMADol (ULTRAM) 50 MG tablet Take 50 mg by mouth every 6 (six) hours if needed for moderate pain 025 Discontin ued(Med List Maintenan ce) ranolazine (RANEXA) 500 MG 12 hr tablet Take 500 mg by mouth in the morning and 500 mg in the evening. Do not crush, chew, or split. . 025 Discontin ued(Med List Maintenan ce) Active Problems Problem Noted Date Diagnosed Date Hyperkalemia 07/16/2024 Chronic kidney disease, stage 4 (severe) 024 [...] 05/04/2023 Heart failure with normal ejection fraction 0 06/2022 Diabetes mellitus 05/04/2023 Coronary arteriosclerosis 05/04/2023 [...] Date Type Department Care Team Description 07/16/2024 3:15 PM EST Office Visit [facility] [address] [facility] [address] [place] [address] Patricia Fulton ARNP Chronic kidney disease, stage 4 (severe) ([facility]) (Primary Dx); Hypertension; Renal osteodystrophy; Hyperkalemia 05/19/2024 Refill [facility] [address] [place] [address] [place] [id number] Kevin Gates MD from Last 3 [...] EDT Inhaled Oxygen Concentration - - Weight 81.6 kg (180 lb) 07/16/2024 3:39 PM EST Height - - Body Mass Index - - Plan of Treatment Upcoming Encounters Date Type Department Care Team (Latest Contact Info) Description 07/23/2024 Orders Only [facility] [address] [address] Patricia Fulton ARNP [address] [address] Chronic kidney disease, stage 4 (severe) (HCC); Hypertension; Hyperkalemia 08/04/2024 Orders Only [facility] [address] [place] [address] Kevin Gates MD [address] [address] Chronic kidney disease, stage 4 (severe) (HCC); Renal osteodystrophy 01/12/2025 1:15 PM EDT Office Visit [facility] [address] [address] Kevin Gates MD [address] [address] Health Maintenance Due Date Last Done [...] 9.7 8.7 - 10.7 mg/dL eGFR Non-Afr Central African 31 07/08/2024 [facility] Provider LAB BLOOD ORDERABLES Malena l Result from Last 3 Months Insurance [employer] ONE CARE DUAL SNP ([id number]) [facility] ONE CARE DUAL SNP ([id number]) Care Teams President Commercial Bank Relationship Specialty Start Date End Date Name, MD Joey [address] [place] [address] [id number] PCP - General Internal Medicine 07/16/24
--- OUTSIDE RECORDS SUMMARY | 2024-07-17 13:23 | XMS_ITS | Encounter Summary ---
Author Organization [employer] Address [address] 7[address] [place] [address] Care Team Providers Care Ssrs Developer Name Role Phone Emperatriz Stoll Primary Care Provider [phone] Rosa Deluca PharmD Unavailable [phone] Name, Joey MERINO Primary Care Provider [phone] Reason for Visit * Reason Onset Date Comments Med Refill 08/30/2023 Encounter Details Date Type Department Care Team ([facility] st Contact Info) Description 08/30/2023 Telephone [facility] MED[facility] [address] [place], [place] [phone] Emperatriz Stoll FNP [address] [place], [place] [phone] Med Refill Social History Tobacco Use Types Packs/Day Years Used Date Smoking Tobacco: Former Cigarettes Passive Smoke Exposure: Never Smokeless Tobacco: Never Alcohol Use Standard Drinks/Week Comments Not Currently 0 (1 standard drink = 0.6 oz pur e alcohol) Depression Answer Date Recorded Patient Health Questionnaire-9 Score 0 12/13/2022 Housing Stability Answer Date Recorded What is your housing situation today? I have nga regina 03/21/[address] you li [...] encounter Miscellaneous Notes * Telephone Encounter - Kira Gallagher - 08/30/2023 2:14 PM EDT TC from pt requesting medication refill. Medications needing refill : traMADol (Ultram) 50 MG tablet To be sent to: [facility] [place], [place] - [address] [place] [address] documented in this encounter Plan of Treatment Upcoming Encounters Date Type Department Care Team ([facility] st Contact Info) Description 08/04/2024 9:30 AM EST Medication Management [facility] [address] [place] [address] Rosa Deluca, PharmD [address] [place] [address] 08/25/2024 9:00 AM EDT Clinical Support [facility] [address] [place] [address] Remedios Calderon RN 10/16/2024 10:00 AM EDT Office Visit [facility] ADULT DENTAL [address] [place] [address] Cassi Simms [address] [place] [address] documented as of this encounter Goals Goal [...] documented as of this encounter Care Teams Ssrs Developer Relationship Specialty Start Date End Date Emperatriz Stoll FNP [address] [place] [address] PCP - General Family Medicine 07/19/22 02/05/24 Name, MD Joey [address] [place] [address] PCP - General Internal Medicine 02/06/24 Rosa Deluca, DamionD [address] [place] [address] Pharmacist Internal Medicine 12/03/23 documented as of this encounter
--- OUTSIDE RECORDS SUMMARY | 2024-07-17 13:23 | XMS_ITS | Encounter Summary ---
Author Organization [employer] Address [address] [facility] 7t [place] [address] Care Team Providers Care Stain Remover Name Role Phone Emperatriz Stoll Primary Care Provider [phone] Rosa Deluca PharmD Unavailable [phone] Name, Joey MERINO Primary Care Provider [phone] Reason for Referral * Consultation (Routine) - Closed Specialty Diagnoses / Procedures Referred By Justina willis Referred To Contact Nutrition Diagnoses Controlled type 2 diabetes mellitus without complication, with long-term current use of insulin (CMS/HCC) Emperatriz Stoll FNP [address] [place] [address] Phone: tel: fax: Referral ID Status Reason Start Date Expiration Date V isits Requested Visits Authorized [id number] Closed Specialty Services Required 11/06/2023 11/05/2024 1 1 Encounter Details Date Type Department Care Team (Late st Contact Info) Description 11/06/2023 Orders Only [facility] [address] [place] [address] Emperatriz Stoll FNP [address] [place] [address] Controlled type 2 diabetes mellitus without complication, with long-term current use of insulin (CMS/HCC) (Primary Dx) Social History Tobacco Use Types Packs/Day Years [...] Description 08/04/2024 9:30 AM EST Medication Management [facility] [address] [place] [address] Rosa Deluca, PharmD [address] [place] [address] 08/25/2024 9:00 AM EDT Clinical Support [facility] [address] [place] [address] Remedios Calderon, KYLER 10/16/2024 10:00 AM EDT Office Visit [facility] ADULT DENTAL [address] [place] [address] Cassi Simms [address] [place] [address] Scheduled Referrals Name Type Priority Associated Diagnoses Orde r Schedule Referral to Nutrition Therapy Outpatient Referral Routine Controlled type 2 diabetes mellitus without complication, with long-term current use of insulin (CMS/HCC) Expected: 11/06/2023 (Approximate), Expires: 11/05/2024 documented as of this encounter Goals Goal Patient Goal Type Associated Problems Recent Progress Patient-Stated? Author Blood Pressure < 140/90 Blood Pressure 130/64(2024 9:43 AM EST) No Donald Johnson Hemoglobin A1c < 7.5 Result Component 6(07/14/2024 9:46 AM EST) No Donald Johnson documented as of this encounter Visit Diagnoses Diagnosis Controlled type 2 diabetes mellitus without complication, with long-term current use of insulin (CMS/HCC)- Primary documented in this encounter Additional Health Concerns Assessment Noted Time PHQ-9 Depression Total Score: 0 12/14/19 23 11:09 AM EDT documented as of this encounter Care Teams Stain Remover Relationship Specialty Start Date End Date Emperatriz Stoll FNP [address] [place] [address] PCP - General Family Medicine 07/19/22 02/05/24 Joey Barreto MD [address] [place] [address] PCP - General Internal Medicine 02/06/24 Rosa Deluca PharmD [address] [place] [address] Pharmacist Internal Medicine 12/03/23 documented as of this encounter
== END 2024-07-17 13:15 | disposition home or self-care (01) ==
LOC: HO.US 13:14
PROVIDERS: PCP Nurse Practitioner Family; Visit Provider Thoracic Surgery (Cardiothoracic Vascular Surgery)
DX: Z01.818 Encounter for other preprocedural examination (principal); I25.10 Atherosclerotic heart disease of native coronary artery without angina pectoris
CPT/HCPCS: 93880

== ENCOUNTER → 2024-07-17 13:16 | Outpatient (BNV) | payer OTHER, SELFPAY | PROVIDERS: PCP Nurse Practitioner Family; Visit Provider Radiology Diagnostic Radiology | DX: I70.90 Unspecified atherosclerosis (principal) | CPT/HCPCS: 93880 ==

== ENCOUNTER 2024-07-22 10:37 | Outpatient (REF) | payer OTHER, SELFPAY ==
--- OUTSIDE RECORDS SUMMARY | 2024-07-22 11:40 | XMS_ITS | Patient Health Record ---
Author Organization [facility] Address [address] [facility] [address] [place] [address] Care Team Providers Care Windchill Administrator Name Role Phone FAUZIA (ODETTEMICHELLE) VICENTE MERINO Primary Care Provider Unavailable Sheldon Pierre Unavailable ALLERGIES No Known Allergies REASON FOR REFERRAL No Information MEDICATIONS Medication SIG (Take, Route, Frequency, Duration) Notes Start Date End Date Status carvedilol 12.5 mg 1 tab(s) orally twic e a day for 90 days Active D 2000 IU 2000 intl units as directed or ally once a day 03/24/2020 Active Vitamin C CR 1000 mg 1 tab(s) orally once a day Active sodium bicarbonate 650 mg 1 tab(s) orall y bid for 90 days 02/22/2022 Active NovoLIN 70/30 human recombinant 70 units-30 units/mL 0 subcutaneously Active Hyzaar 12.5 mg-50 mg 1 tab(s) orally onc e a day for 90 days 02/22/2022 Active gabapentin 100 mg 1 cap(s) orally once a day Active allopurinol 100 mg as directed orally f or 90 days Active Folic Acid 400 mcg 1 tab(s) orally once a day Active Farxiga 10 mg Take 1 tablet by ishmael th once daily orally once a day for 90 days Active ferrous sulfate 325 mg 1 tab(s) orally once a day Active Vitamin B12 1000 mcg 1 tab(s) orally onc e a day for 30 day(s) Active atorvastatin 20 mg 1 tab(s) orally once a day Active sodium bicarbonate 650 mg 1 tab(s) orall y bid for 90 days 02/14/2021 Active IMMUNIZATIONS Vaccine Route Administration Date Status Comme nts Influenza (Trivalent Split V irus) pre-filled syringe Unknown 11/12/2017 Refused INFLUENZA not Administered Unknown 06/25/2019 Refused Influenza Quadrivalent pre-f illed syringe Unknown 10/22/2019 Refused PneumoVax Unknown 11/12/2017 Refused PneumoVax Unknown 06/25/2019 Refused PneumoVax Unknown 10/22/2019 Refused SOCIAL HISTORY Sex Assigned At : Social History Observation Description Sex Assigned At Unknown PROBLEMS Problem Type ICD Code Onset Dates Problem Status W/U Status Risk SNOMED Code Notes Problem Hyperkalemia (E87.5) Active confirmed H yperkalemia (83568260) Problem Metabolic acidemia (E87.2) Active confirmed Acidosis (36440374) Problem HTN (hypertension) (I10) Active confirmed Hypertension (15672701) Problem CAD (coronary artery disease) (I25.10) Active confirmed Coronary a rtery disease (56415597) Problem Anemia of renal disease (D63.1) Active confirmed Anemia of re nal disease (338942422) Problem DM (diabetes mellitus) (E11.9) Active confirmed DM - Diabe raymundo mellitus (02185515) Problem Diabetic retinopathy (E11.319) Active confirmed Diabetic retino marina (2040496) Problem Hyperphosphatemia (E83.39) Active confirmed Hyperphosphatem ia (98783339) Problem Secondary hyperparathyroidism (N25.81) Active confirmed Secondary hyperparathyroidism (99271851) Problem Vitamin D insufficiency (E55.9) Active confirmed 64543275 Problem Proteinuria (R80.9) Active confirmed Pr oteinuria (95751140) Problem Hyperlipidemia (E78.5) Active confirmed Hyperlipidemia (36910700) Problem Pneumococcal vaccine administered (Z23) Active confirmed Requires vaccination (016720222) Problem CKD stage G3b/A3, GF R 30-44 and albumin creatinine ratio >300 mg/g (N18.32) Active confirmed Chronic kidney disease stage 3B (disorder) (317386781) PLAN OF TREATMENT Pending Test Test Name Order Date BMP WITH eGFR 04/03/2019 BMP WITH eGFR 12/04/2019 Future Test Test Name Order Date URINALYSIS, COMPLETE W/REFLEX TO CULTURE 11/12/2017 COMPLETE BLOOD COUNT WITH AUTO DIFF 11/02 CMP WITH eGFR 11/12/2017 IRNPNL (Ferritin, Iron, IBC, %Saturation ) 11/12/2017 PHOSPHORUS 11/12/2017 PTH INTACT without Calcium 11/12/2017 UPROT/UCREAT RATIO 11/12/2017 URIC ACID 11/12/2017 IMMUNOFIXATION URINE, RANDOM (IFEU) 11/02 IMMUNOFIXATION, SERUM (IFES) 11/12/2017 Protein Electrophoresis, serum (SPEP) Protein Electrophoresis, Random Urine (U PEP) 11/12/2017 VITAMIN D 25-HYDROXY 11/12/2017 URINALYSIS, COMPLETE W/REFLEX TO CULTURE 11/19/2017 A1C 11/19/2017 BMP WITH eGFR 11/19/2017 COMPLETE BLOOD COUNT WITH AUTO DIFF 11/02 IRNPNL (Ferritin, Iron, IBC, %Saturation ) 11/19/2017 PHOSPHORUS 11/19/2017 UPROT/UCREAT RATIO 11/19/2017 ANNAMARIA w/Reflex 11/19/2017 Hepatitis Panel 11/19/2017 RHEUMATOID ARTHRITIS FACTOR 11/19/2017 RPR SCREEN WITH REFLEX TO TITER 11/20/19 18 Protein Electrophoresis, serum (SPEP) Protein Electrophoresis, Random Urine (U PEP) 11/19/2017 VITAMIN D 25-HYDROXY 11/19/2017 ANNAMARIA, IFA, WITH REFLEX TO TITER AND PATTE RN 03/12/2019 URINALYSIS, COMPLETE W/REFLEX TO CULTURE 03/12/2019 A1C 03/12/2019 VITAMIN B-12 03/12/2019 COMPLETE BLOOD COUNT WITH AUTO DIFF 02/2019 CMP WITH eGFR 03/12/2019 IRNPNL (Ferritin, Iron, IBC, %Saturation ) 03/12/2019 PHOSPHORUS 03/12/2019 PTH INTACT without Calcium 03/12/2019 UPROT/UCREAT RATIO 03/12/2019 URIC ACID 03/12/2019 ULTRASOUND Renal w/ Doppler 03/12/2019 Hepatitis Panel 03/12/2019 IMMUNOFIXATION URINE, RANDOM (IFEU) 02/2019 RHEUMATOID ARTHRITIS FACTOR 03/12/2019 RPR SCREEN WITH REFLEX TO TITER 03/12/20 19 IMMUNOFIXATION, SERUM (IFES) 03/12/2019 Protein Electrophoresis, serum (SPEP) Protein Electrophoresis, Random Urine (U PEP) 03/12/2019 VITAMIN D 25-HYDROXY 03/12/2019 FOBT- Fecal Globin by Immunochemistry HIV screen 03/12/2019 URINALYSIS, COMPLETE W/REFLEX TO CULTURE 06/25/2019 COMPLETE BLOOD COUNT WITH AUTO DIFF 06/05 CMP WITH eGFR 06/25/2019 IRNPNL (Ferritin, Iron, IBC, %Saturation ) 06/25/2019 PHOSPHORUS 06/25/2019 PTH INTACT without Calcium 06/25/2019 UPROT/UCREAT RATIO 06/25/2019 URIC ACID 06/25/2019 ULTRASOUND Renal w/ Doppler 06/25/2019 URINALYSIS, COMPLETE W/REFLEX TO CULTURE 07/03/2019 BMP WITH eGFR 07/03/2019 COMPLETE BLOOD COUNT WITH AUTO DIFF 06/06 IRNPNL (Ferritin, Iron, IBC, %Saturation ) 07/03/2019 UPROT/UCREAT RATIO 07/03/2019 ULTRASOUND Renal 09/23/2019 URINALYSIS, COMPLETE W/REFLEX TO CULTURE 03/24/2020 CMP WITH eGFR 02/22/2022 PTH INTACT without Calcium 02/22/2022 UPROT/UCREAT RATIO 02/22/2022 Insurance Providers Payer Name Payer Address Payer Phone Subscriber Number Group Number Insured Name Patient Relationship to Insured Coverage Start Date Coverage End Date [facility] [address] [address] [place] [address] [id number] ELAINE FLEMING Self - patient is the insured Medicaid Secondary [address] [place], [place] [id number] ELAINE [place] Self - patient is the insured 9 MEDICAL (GENERAL) HISTORY Medical History History ICD Code Hypertension Diabetes High cholesterol Angina Depression Hyperkalemia E87.5 Hypokalemia E87.6 COVID-19 U07.1 Surgical History Surgery Date(Month/Year) Eye Laser Surgery 11/2017 Heart Catherization 11/2017 Heart Catherization w stent placecement 03/2017 Eye surgery 05/2013 cataract surgery , rt 03/2019 Cataract (bilateral) Hospitalization History Reason Date(Month/Year) chest pain @[facility] 11/2019
--- OUTSIDE RECORDS SUMMARY | 2024-07-22 11:40 | XMS_ITS | Encounter Summary ---
Author Organization [facility] Address [address] 7[address] [place] [address] Care Team Providers Care Healthcare Economics Consultant Name Role Phone Emperatriz Stoll Primary Care Provider [phone] Rosa Deluca PharmD Unavailable [phone] Name, Joey MERINO Primary Care Provider [phone] Encounter Details Date Type Department Care Team ([facility] st Contact Info) Description 10/20/2022 Orders Only [facility] MEDICINE [address] [place] [address] Emperatriz Stoll FNP [address] [place], [place] [phone] Other chronic pain Social History Tobacco Use [...] AM EST Medication Management [facility] MEDICINE [address] [place] [address] Rosa Deluca, PharmD [address] [place] [address] 08/25/2024 9:00 AM EDT Clinical Support [facility] MEDICINE [address] [place] [address] Remedios Calderon, KYLER 10/16/2024 10:00 AM EDT Office Visit [facility] ADULT DENTAL [address] [place] [address] Cassi Simms [address] [place] [address] documented as of this encounter Procedures Procedure Name Priority Date/Time Associated Diagnosis Comments XR CHEST 2 VIEWS Routine 11/17/2022 4:30 PM EDT documented in this encounter Results * XR Chest 2 Views (11/17/2022 4:30 PM EDT) Anatomical Region Laterality Modality Chest Radiographic Mony ging 11/17/2022 4:30 PM EDT Narrative 11/24/2022 2:21 PM EDT ?[facility] ?[address] ?[place] [address] ?XRay Report ? Signed ? Patient: Esdras,Efrain ?MR#: [id number] ? : 1960 ?Acct:[id number] ? Age/Sex: 61 / M ?ADM Date: /16/ ? Loc: HO.HHCX ? Attending Dr: Emperatriz Stoll CHRONOMETER ADJUSTER ? Ordering Physician: Emperatriz Stoll CHRONOMETER ADJUSTER ?? Date of Service: 11/17/22 ?? Procedure(s): XR chest 2V ?? Accession Number(s): [id number] ? cc: Emperatriz Stoll CHRONOMETER ADJUSTER ? EXAMINATION: ?? XR CHEST ? CLINICAL [...] 1418 ? DD/ 1630 ? TD/TT: ? Analysis Lead: DAVID ? Procedure Note Robi Dockery - 11/29/2022 [facility] [address] [place] [address] XRay Report Signed Patient: Efrain DewittMR#: [id number] : 1960cct:[id number] Age/Sex: 61 / MADM Date: 11/17/22 Loc: HO.HHCX Attending Dr: Emperatriz Stoll CHRONOMETER ADJUSTER Ordering Physician: Emperatriz Stoll NP Date of Service: 11/17/22 Procedure(s): XR chest 2V Accession Number(s): [id number] cc: Emperatriz Stoll CHRONOMETER ADJUSTER EXAMINATION: XR CHEST CLINICAL INFORMATION: Bilateral lower [...] in OV> 11/24/22 1418 DD/ 1630 TD/TT: Analysis Lead: DAVID [facility] External Provider IMG XR PROCEDURES Final Result documented in this encounter Visit Diagnoses Diagnosis Other chronic pain documented in this encounter Additional Health Concerns Assessment Noted Time PHQ-9 Depression Total Score: 7 07/19/19 23 3:07 PM EST documented as of this encounter Care Teams Healthcare Economics Consultant Relationship Specialty Start Date End Date Emperatriz Stoll FNP [address] [place] [address] PCP - General Family Medicine 07/19/22 02/05/24 Name, MD Joey [address] [place], [place] [phone] PCP - General Internal Medicine 02/06/24 Rosa Deluca, Martha [address] [place] [address] Pharmacist Internal Medicine 12/03/23 documented as of this encounter
--- OUTSIDE RECORDS SUMMARY | 2024-07-22 11:40 | XMS_ITS | Encounter Summary ---
Author Organization [employer] Address [address] 7[address] [place] [address] Care Team Providers Care Soda Fountain Operator Name Role Phone Rosa Deluca PharmD Unavailable [phone] Name, Joey MERINO Primary Care Provider [phone] Reason for Visit * Reason Comments Med Refill Encounter Details Date Type Department Care Team ([facility] st Contact Info) Description 07/14/2024 Refill [facility] MEDICINE [address] [place] [address] Patricia Thompson DO [address] [place] [address] Social History Tobacco Use Types Packs/Day Years [...] 08/04/2024 9:30 AM EST Medication Management [facility] MED[facility] [address] [place] [address] Rosa Deluca, PharmD [address] [place] [address] 08/25/2024 9:00 AM EDT Clinical Support [facility] MED[facility]INE [address] [place] [address] Remedios Calderon RN 10/16/2024 10:00 AM EDT Office Visit [facility] ADULT DENTAL [address] [place] [address] Cassi Simms [address] [place] [address] documented as of this encounter Goals Goal Patient Goal Type Associated Problems Recent Progress Patient-Stated? Author Blood Pressure < 140/90 Blood Pressure 130/64(2024 9:43 AM EST) No Donald Johnson Hemoglobin A1c < 7.5 Result Component 6(07/14/2024 9:46 AM EST) No Donald Jonhson documented as of this encounter Visit Diagnoses Not on filedocumented in this encounter Additional Health Concerns Assessment Noted Time PHQ-9 Depression Total Score: 8 06/06/19 25 11:44 AM EST documented as of this encounter Care Teams Soda Fountain Operator Relationship Specialty Start Date End Date Name, MD Joey [address] [place] [address] PCP - General Internal Medicine 02/06/24 Rosa Deluca, Martha [address] [place] [address] Pharmacist Internal Medicine 12/03/23 documented as of this encounter
--- OUTSIDE RECORDS SUMMARY | 2024-07-22 11:40 | XMS_ITS | Encounter Summary ---
Author Organization [employer] Address [address] [place] [address] Care Team Providers Care Cigarette Making Machine Hopper Feeder Name Role Phone Rosa Deluca PharmD Unavailable [phone] Name, Joey MERINO Primary Care Provider [phone] Encounter Details Date Type Department Care Team [...] t he electric, gas, oil or water [employer] threatened to shut off services in your [...] Description 08/04/2024 9:30 AM EST Medication Management [facility] [address] [place] [id number] Rosa Deluca, DamionD [address] [place] [address] 08/25/2024 9:00 AM EDT Clinical Support [facility] [address] [place] [phone] Remedios Calderon RN 10/16/2024 10:00 AM EDT Office Visit [facility]ULT [facility] [address] [place] [phone] Cassi Simms [address] [place] [address] documented as of this encounter Goals Goal [...] documented as of this encounter Care Teams Cigarette Making Machine Hopper Feeder Relationship Specialty Start Date End Date Name, MD Joey [address] [place] [id number] PCP - General Internal Medicine 02/06/24 Rosa Deluca, Martha [address] [place] [id number] Pharmacist Internal Medicine 12/03/23 documented as of this encounter
--- OUTSIDE RECORDS SUMMARY | 2024-07-22 11:40 | XMS_ITS | Encounter Summary ---
Author Organization [employer] Address [address] [place] [address] Care Team Providers Care Mechanic Chief Name Role Phone Rosa Deluca PharmD Unavailable [phone] NameJoey MD Primary Care Provider [phone] Reason for Visit * Reason Comments Follow-up Encounter Details Date Type Department Care Team (Latest Contact Info) Description 07/14/2024 9:45 AM EST Office Visit [facility] [address] [place] [address] Name, MD Joey [address] [place] [address] Coronary arteriosclerosis (Primary Dx); Controlled type 2 diabetes mellitus with complication, with long-term current use of insulin ([facility]) Social History Tobacco Use Types Packs/Day Years [...] last month with cardiac ca theterization at [facility] that showed significant CAD. The patient [...] Continuous Glucose Sensor (FreeStyle Sarina 2 Sensor) [facility] TEST BLOOD SUGAR FOUR TIMES DAILY 1 [...] in the morning. Lancets (OneTouch Delica Plus [id number]) [facility] USE TO TEST BLOOD SUGAR IN THE [...] complication, with long-term current use of insulin ([facility]) Comments: Well-controlled. Continue current medications. He is Ozempic and Farxiga Orders: - POCT Glucose - POCT HGB A1C documented in this encounter Plan of Treatment Upcoming Encounters Date Type Department Care Team (Late st Contact Info) Description 08/04/2024 9:30 AM EST Medication Management [facility] [address] [place] [id number] Rosa Deluca, Martha [address] [place] [address] 08/25/2024 9:00 AM EDT Clinical Support [facility] [address] [place] [phone] Remedios Calderon RN 10/16/2024 10:00 AM EDT Office Visit [facility] ADULT DENTAL [address] [place] [address] Cassi Simms [address] [place] [address] documented as of this encounter Goals Goal [...] complication, with long-term current use of insulin ([facility]) POCT GLUCOSE Routine 07/14/2024 9:46 AM EST Controlled type 2 diabetes mellitus with complication, with long-term current use of insulin ([facility]) documented in this encounter Results * POCT [...] Media Lot # [id number] Lot# Expiration Date 883 Blood Capillary blood specimen / Unknown 07/14/2024 9:46 AM EST Result Fredrick Barreto MD POINT OF CARE TEST ENTER/EDIT OR DERABLES Final Result documented in this encounter Visit Diagnoses Diagnosis Coronary arteriosclerosis- Primary Coronary atherosclerosis of unspecified type of vessel, cowlitz or graft Controlled type 2 diabetes mellitus with complication, with long-term current use of insulin ([facility]) documented in this encounter Additional Health Concerns Assessment Noted Time PHQ-9 Depression Total Score: 8 06/06/19 25 11:44 AM EST documented as of this encounter Care Teams Mechanic Chief Relationship Specialty Start Date End Date Name, MD Joey [address] [place] [address] PCP - General Internal Medicine 02/06/24 Rosa Deluca, Martha [address] [place] [address] Pharmacist Internal Medicine 12/03/23 documented as of this encounter
--- OUTSIDE RECORDS SUMMARY | 2024-07-22 11:40 | XMS_ITS | Encounter Summary ---
Author Organization [employer] Address [address] [place] [address] [place] [address] Care Team Providers Care Director Of Research Center Name Role Phone Emperatriz Stoll Primary Care Provider [phone] Rosa Deluca PharmD Unavailable [phone] Name, Joey MERINO Primary Care Provider [phone] Reason for Visit * Reason Comments Med Refill Encounter Details Date Type Department Care Team ([facility] st Contact Info) Description 05/01/[address] [facility] [address] [place] [address] Emperatriz Stoll FNP [address] [place], [place] [phone] Primary hypertension Social History Tobacco Use Types [...] AM EST Medication Management [facility] [address] [place] [address] Rosa Deluca, PharmD [address] [place] [address] 08/25/2024 9:00 AM EDT Clinical Support [facility] [address] [place] [address] Remedios Calderon RN 10/16/2024 10:00 AM EDT Office Visit [facility] ADULT DENTAL [address] [place] [address] Cassi Simms [address] [place] [address] documented as of this encounter Goals Goal [...] documented as of this encounter Care Teams Director Of [facility] Center Relationship Specialty Start Date End Date Emperatriz Stoll FNP [address] [place] [address] PCP - General Family Medicine 07/19/22 02/05/24 Name, MD Joey [address] [place] [address] PCP - General Internal Medicine 02/06/24 Rosa Deluca, DamionD [address] [place] [address] Pharmacist Internal Medicine 12/03/23 documented as of this encounter
--- OUTSIDE RECORDS SUMMARY | 2024-07-22 11:40 | XMS_ITS | Clinical Summary ---
Author Organization [employer] Address [address] [place] [address] Care Team Providers Care Senior Firewall Engineer Name Role Phone Rosa Deluca PharmD Unavailable [phone] Name, Joey MERINO Primary Care Provider [phone] Allergies No known active allergies Medications albuterol [...] 024 2024 Active Lancets (OneTouch Delica Plus Gltbon86C) miscIndications: Type 2 diabetes mellitus without complications ([facility]) USE TO TEST BLOOD SUGAR IN THE [...] Sensor (FreeStyle Sarina 2 Sensor) [facility] [place] BLOOD SUGAR FOUR TIMES DAILY 1 each 11 024 Active BD Pen Needle Danielle U/F 32G X 4 MM miscIndications: Controlled type 2 diabetes mellitus with complication, with long-term current use of insulin ([facility]) USE DIRECTED ONCE DAILY 100 each 1 Active insulin glargine (Lantus SoloStar) 100 UNIT/ML penIndications:C ontrolled type 2 diabetes mellitus with complication, with long-term current use of insulin ([facility]) Inject subcutaneously 22 units once daily Active Semaglutide,0.25 or 0.5MG/DOS, (Ozempic, 0.25 or 0.5 MG/DOSE,) 2 MG/3ML solution pen-injectorIndi cations:Type 2 diabetes mellitus without complication, with long-term current use of insulin ([facility]) INJECT 0.5 MG SUBCUTANEOUSLY EVERY 7 DAYS IN THE ABDOMEN, THIGHS, OR UPPER ARM, ROTATE INJECTION SITES. 3 mL 3 024 Active folic acid (Folvite) 1 MG tabletIndication s:Dietary counseling TAKE 1 TABLET BY MOUTH EVERY MORNING 30 tablet 1 025 Active Farxiga 10 MGIndications:Co ntrolled type 2 diabetes mellitus without complication, unspecified whether group home insulin use ([facility]) Take 1 tablet (10 mg) by mouth [...] 2 diabetes mellitus without complication, unspecified whether group home insulin use (CMS/HCC) Take 1 tablet (10 [...] -compressions stockings 20-30 mmHg requested today to [facility] RN -pt has apt w PCP 12/21/2023 [...] Department Care Team Description 07/16/2024 Orders Only [facility] External Provider, [facility] 07/14/2024 9:45 AM EST Office Visit [facility] [address] [place] [address] Name, MD Joey Coronary arteriosclerosis (Primary Dx); Controlled type 2 diabetes mellitus with complication, with long-term current use of insulin ([facility]) 07/14/2024 Refill [facility] [address] [place] [address] Patricia Thompson DO 07/14/2024 Travel 06/27/2024 Refill [facility] [address] [place], [place] [phone] NameJoey MD Other chronic pain 06/24/2024 Travel 06/18/2024 9:30 AM EST Office Visit [facility] [address] [place] [address] Nick, Jenniffer, OD 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 associated with type 2 diabetes mellitus, macular edema presence unspecified (CMS/HCC) (Primary Dx); History of panretinal photocoagulation; Epiretinal membrane (ERM) of both eyes; Macular atrophy, retinal; Pseudophakia of both eyes; Presbyopia of both eyes 06/18/2024 Travel 06/16/2024 Refill [facility] [address] [place] [address] Emperatriz Stoll FNP 06/14/2024 Refill [facility] [address] [place] [address] Joey Barreto MD Dietary counseling 06/06/2024 11:30 AM EST Office Visit [address] [address] Joey Barreto MD Coronary arteriosclerosis (Primary Dx); Controlled type 2 diabetes mellitus with complication, with long-term current use of insulin ([facility]) 06/06/2024 Travel 06/05/[address] [address] Monique Esquivel [place] Chart Prep 06/03/2024 Orders Only GENERIC EXTERNAL DATA DEPARTMENT Provider, Generic External Data 06/02/2024 Orders Only GENERIC EXTERNAL DATA DEPARTMENT Provider, Generic External Data 05/27/2024 9:00 AM EST Clinical Support [address] [address] Remedios Calderon RN Other chronic pain (Primary Dx) 05/27/2024 Travel 05/27/[address] [address] Remedios Calderon RN Recommend CONFIGURATION ENGINEER Tier 2 05/23/2024 Refill [facility] [address] [place], [place] [phone] Brea Shahid NP Other chronic pain 05/12/2024 Orders Only GENERIC EXTERNAL DATA DEPARTMENT Provider, Generic External Data 05/12/2024 Travel 05/08/2024 Orders Only [facility] External Provider, [facility] 05/08/2024 Telephone [facility] [address] [place] [phone] Linda Qiu RN [facility] notes 05/06/2024 Orders Only GENERIC EXTERNAL DATA DEPARTMENT Provider, Generic External Data 04/29/2024 Telephone [facility] [address] [place] [address] Name, MD Joey Med Refill 04/28/2024 Telephone [facility] [address] [place] [address] NameJoey MD Med Refill 04/28/2024 Refill [facility] [address] [place], [place] [phone] Name, MD Joey Other chronic pain 04/22/2024 Refill [facility] [address] [place] [address] Rosa Deluca PharmD Type 2 diabetes mellitus without complication, with long-term current use of insulin ([facility]) 04/22/2024 Refill [facility] [address] [place], [place] [phone] Name, MD Joey Dietary counseling from Last 3 Months Immunizations Name Administration [...] prior vaccines. Declines all vaccines.) RSV Bivalent 05/12/2024,(Deferred: Patient decision - Reports bad reaction with [...] Description 08/04/2024 9:30 AM EST Medication Management [facility] [address] [place] [address] Rosa Deluca, DamionD [address] [place] [address] 08/25/2024 9:00 AM EDT Clinical Support [facility] [address] [place] [address] Remedios Calderon, KYLER 10/16/2024 10:00 AM EDT Office Visit [facility] ADULT DENTAL [address] [place] [address] Cassi Simms [address] [place] [address] Health Maintenance Due Date Last Done Comments CT Colonography 1960 Colonoscopy 1960 Colorectal Cancer Screening 1960 FIT DNA/Cologuard 1960 FIT 1960 FOBT 1960 HIV Screening 1960 Sigmoidoscopy 1960 Hepatitis C Screening 1978 Dental Oral Exam 04/18/2024 10/16/2023, 08/08/2022 Dental Prophylaxis 10/08/2024 04/09/2024, 0 10/16/2023, 08/31/2022 Dental X-Ray: Bitewings 10/16/2024 10/16/2023, 08/08 Diabetes: Hemoglobin A1C 01/11/2025 022 025, 05/12/2024, 03/07/2024, Additional history exists SDOH [...] Priority Date/Time Associated Diagnosis Comments VASC US CAROTID ARTERY DUPLEX BILATERAL Routine 07/18/2024 8:03 AM EST [facility] US LOWER EXTREMITY VENOUS DUPLEX BILATERAL Routine 07/16/2024 8:50 AM EST POCT GLYCATED HEMOGLOBIN, TOTAL Routine 07/14/2024 9:46 AM EST Controlled type 2 diabetes mellitus with complication, with long-term current use of insulin ([facility]) POCT GLUCOSE Routine 07/14/2024 9:46 AM EST Controlled type 2 diabetes mellitus with complication, with long-term current use of insulin ([facility]) OCT, RETINA - OU - BOTH EYES Routine 06/18/2024 9:30 AM EST Epiretinal membrane (ERM) of both eyes POCT GLUCOSE Routine 06/06/2024 11:45 AM EST Controlled type 2 diabetes mellitus with complication, with long-term current use of insulin ([facility]) BASIC METABOLIC PANEL Routine 06/03/2024 10:22 AM [...] CYTOPATH-CELL ENHANCED Routine 05/06/2024 4:37 PM EST PROPHYLAXIS - ADULT Routine 04/09/2024 8 [...] Recently Relevant to Health Maintenance Results * [facility] Carotid Artery Duplex Bilateral (07/18/2024 8:03 AM EST) 07/18/2024 8:03 AM EST Narrative [facility] - 07/18/2024 8:04 AM EST ? [facility] ?[address] ?[place] [address] ? Ultrasound Report ? Signed ? Patient: Efrain Dewitt ?MR#: [id number] ? : 1960 ?Acct:[id number] ? Age/Sex: 63 / M ?ADM Date: 07/17/24 ? Loc: HO.US ? Attending Dr: Demarcus Portillo MD ? Ordering Physician: Demarcus Portillo MD ?? Date of Service: 07/17/24 ?? Procedure(s): US carotid duplex BI ?? Accession Number(s): [id number] ? cc: Emperatriz Stoll CODING SUPPORT SPECIALIST; Demarcus Portillo MD ? CLINICAL HISTORY: atherosclerosis ? US Bilateral Carotid Duplex ? Comparison: None ? Findings: ?? There are mild atherosclerotic plaques within the distal right common ?? carotid, right carotid bulb and proximal right internal carotid artery ?? with normal velocity and waveforms. ?? There is mild elevation of peak systolic velocity proximal left internal ?? carotid artery 173 centimeters/second. There is normal velocity ?? measurements left common carotid and left external carotid arteries. There ?? are uojs-nj-unhpnfrf atheromatous atheromatous plaques proximal left ?? internal carotid artery mild atheromatous plaques left common carotid ?? artery nbom-sq-vorvboad atheromatous plaques within the left carotid bulb. ?? There is normal anterograde flow within the vertebral arteries. ? IMPRESSION: ?? Approximately 50-69% stenosis proximal left internal carotid artery, less ?? than 50% diameter stenosis within the right internal carotid artery ?? Please see attached technologist worksheet with the images ? This document has been electronically signed by: Paul Velarde MD on ?? 07/18/2024 08:03:59 ? Dictated By: ?Paul Velarde MD ? Signed By: ?<Electronically signed by Paul Velarde MD in OV> ? 07/18/24 0804 ? DD/ 2 ? TD/TT: 07/18/24802 ? Trials Manager: ? Procedure Note Robi Dockery - 07/18/[address] [address] Ultrasound Report Signed Patient: Efrain DewittMR#: [id number] : 1960cct:[id number] Age/Sex: 63 / MADM Date: 07/17/24 Loc: HO.US Attending Dr: Demarcus Portillo MD Ordering Physician: Demarcus Portillo MD Date of Service: 07/17/24 Procedure(s): US carotid duplex BI Accession Number(s): [id number] cc: Emperatriz Stoll CODING SUPPORT SPECIALIST; Demarcus Portillo MD CLINICAL HISTORY: atherosclerosis US Bilateral Carotid Duplex Comparison: None Findings: There are mild atherosclerotic plaques within the distal right common carotid, right carotid bulb and proximal right internal carotid artery with normal velocity and waveforms. There is mild elevation of peak systolic velocity proximal left internal carotid artery 173 centimeters/second. There is normal velocity measurements left common carotid and left external carotid arteries. There are hlqf-dz-jnsvlmjy atheromatous atheromatous plaques proximal left internal carotid artery mild atheromatous plaques left common carotid artery lnen-ce-dyqnhpzm atheromatous plaques within the left carotid bulb. There is normal anterograde flow within the vertebral arteries. IMPRESSION: Approximately 50-69% stenosis proximal left internal carotid artery, less than 50% diameter stenosis within the right internal carotid artery Please see attached technologist worksheet with the images This document has been electronically signed by: Paul Velarde MD on 07/18/2024 08:03:59 Dictated By: Paul Velarde MD Signed By: <Electronically signed by Paul Velarde MD in OV> 07/18/24803 DD/ 2 TD/TT: 07/18/24802 Trials Manager: [facility] External Provider CV VASC ULAR PROCEDURES Edited Result - Final [facility] [address] [place] [address] * VASC US Lower Extremity Venous Duplex Bilateral (07/16/2024 8:50 AM EST) 07/16/2024 8:50 AM EST Narrative [facility] - 07/16/2024 10:13 AM EST ? [facility] ?[address] ?[place] [address] ? Ultrasound Report ? Signed ? Patient: Efrain Dewitt ?MR#: [id number] ? : 1960 ?Acct:[id number] ? Age/Sex: 63 / M ?ADM Date: 07/16/24 ? Loc: HO.US ? Attending Dr: Demarcus Portillo MD ? Ordering Physician: Demarcus Portillo MD ?? Date of Service: 07/16/24 ?? Procedure(s): US venous duplex LE BI ?? Accession Number(s): [id number] ? cc: Emperatriz Stoll NP; Demarcus Portillo [...] DD/ 0850 ? TD/TT: 07/16/24 0919 ? Trials Manager: ? Procedure Note Donotuseinterpreter, Image - 07/16/[address] [address] Ultrasound Report Signed Patient: Efrain DewittMR#: [id number] : 1Acct:[id number] Age/Sex: 63 / MADM Date: 07/16/24 Loc: HO.US Attending Dr: Demarcus Portillo MD Ordering Physician: Demarcus Portillo MD Date of Service: 07/16/24 Procedure(s): US venous duplex LE BI Accession Number(s): [id number] cc: Emperatriz Stoll CODING SUPPORT SPECIALIST; Demarcus Portillo MD EXAMINATION: US LOWER EXTREMITY [...] OV> 07/16/24 1010 DD/ 0850 TD/TT: 07/16/24 09 Trials Manager: [facility] External Provider CV VASC ULAR PROCEDURES Final Result [facility] [address] [place] [phone] * POCT HGB A1C (07/14/2024 9:46 AM EST) Hemoglobin A1C 6.0 4.0 - 6.0 % QC Media Lot # [id number] Lot# Expiration Date ,150 Blood 07/14/2024 9:46 AM EST Joey Barreto MD POINT OF CARE TEST ENTER/EDIT OR DERABLES Final Result * POCT Glucose (07/14/2024 9:46 AM EST) Only the most recent of2 resultswithin the time period is included. Glucose Blood, POC 67 60 - 200 mg/dL Comment:Fasting QC Media Lot # [id number] Lot# Expiration Date [id number] Blood Capillary blood specimen / Unknown 07/14/2024 [...] Patient already followed by Dr. Abbott at [facility]. He will continue his frequent follow-ups there as scheduled. Will monitor here in 1 year. Jenniffer Romero OD OPHTH TOMOGRAPHY Final Result * (ABNORMAL) CBC auto differential (06/03/2024 10:22 AM EST) White Blood Count 6.8 4.8 - 10.8 X10*3/uL [facility] Red Blood Count 3.86(L) 4.60 - 5.80 X10*6/uL [facility] Hemoglobin 11.6(L) 14.0 - 18.0 g/dl [facility] Hematocrit 36.5(L) 42.0 - 52.0 % [facility] Mean Corpuscular Volume 94.6 80.0 - 98.0 fL [facility] Mean Corpuscular Hemoglobin 30.1 27.0 - 33.0 pg [facility] Mean Corpuscular HGB Conc 31.8 31.0 - 36.0 g/dl [facility] Red Cell Distribution Width 14.2 11.0 - 16.0 % [facility] Platelet Count 258 160 - 400 X10*3/uL [facility] Mean Platelet Volume 10.0 9.4 - 12.4 fL [facility] Neutrophils Percent Auto 60.2 45 - 73 % [facility] Imm Gran Pct Auto 0.3 0.0 - 0.4 % [facility] Lymphocytes Percent Auto 27.0 20 - 40 % [facility] Monocytes Percent Auto 8.3 2 - 11 % [facility] Eosinophils Percent Auto 3.5 0 - 4 % [facility] Basophils Percent Auto 0.7 0 - 2 % [facility] NRBC Pct Auto 0.0 0.0 - 0.2 /100WBC [facility] Neutrophils Absolute Auto 4.1 2.0 - 8.3 x10*3/uL [facility] Imm Gran Abs Auto 0.02 0.00 - 0.03 X10*3/uL [facility] Lymphocytes Absolute Auto 1.8 1.2 - 4.9 X10*3/uL [facility] Monocytes Absolute Auto 0.6 0.1 - 1.2 X10*3/uL [facility] Eosinophils Absolute Auto 0.2 0.0 - 0.4 X10*3/uL [facility] Basophils Absolute Auto 0.1 0.0 - 0.2 X10*3/uL [facility] NRBC Abs Auto 0.000 0.0 - 0.012 X10*3/uL [facility] 06/03/2024 10:2 2 AM EST 06/03/2024 10:22 AM EST us Generic External Data Provider LAB BLOOD ORDERAB LES Final Result [facility] [address] [place] [address] [phone] * Prothrombin Time-INR (06/03/2024 10:22 AM EST) Prothrombin Time 11.4 10.9 - 12.4 SEC [facility] INTERNATIONAL NORM RATIO 1.0 0.9 - 1.1 [facility] Comment:INTERNATIONAL NORMAL IZED RATIO (INR) [...] Provider LAB BLOOD ORDERAB LES Final Result [facility] [address] [place] [phone] * (ABNORMAL) Basic Metabolic Panel (06/03/2024 10:22 AM EST) Only the most recent of2 resultswithin the time period is included. Sodium 142 135 - 145 mmol/L [facility] Potassium 3.8 3.3 - 5.1 mmol/L [facility] Chloride 112(H) 96 - 108 mmol/L [facility] Carbon Dioxide 20(L) 22 - 29 mmol/L [facility] Anion Gap 14 12 - 20 [facility] Urea Nitrogen (BUN) 24(H) 9 - 16 mg/dL [facility] Creatinine, Serum 1.96(H) 0.5 - 1.4 mg/dL [facility] Estimated Glomerular Filt Rate 35 [facility] Comment:Chronic Kidney Disea se: Estimated GFR < 60 mL/min/1.55f3Onfzjw Kidney Disease: Estimated GFR < 15 mL/min/1.73m2 Glucose 69 60 - 115 mg/dL [facility] Calcium 8.9 8.4 - 10.2 mg/dL [facility] 06/03/2024 10:2 2 AM EST 06/03/2024 10:22 AM EST Generic External Data Provider LAB BLOOD ORDERAB LES Final Result Performing Organization Address [facility]/ZIP Co de Phone Number [facility] [address] [place] [phone] * (ABNORMAL) Lipid Panel, Standard (06/02/2024 9:33 AM EST) Triglycerides 68 <150 mg/dL [facility] Comment:Desirable Triglyceri de: less than 150 mg/dLBorderline High Triglyceride 150-199 mg/dLHigh Triglyceride: 200-499 mg/dLVery High Triglyceride: greater than or equal to 5OO mg/dL Cholesterol 91 <200 mg/dL [facility] Comment:Desirable Cholestero l: less than 200 mg/dLBorderline High Cholesterol: 200-239 mg/dLHigh Cholesterol: greater than 239 mg/dL LDL Cholesterol Calculated 55 <100 mg/dL [facility] Comment:Desirable LDL: less than 100 mg/dLNear Optimal/Above Optimal LDL: 110- 129 mg/dLBorderline High LDL: 130-159 mg/dLHigh LDL: 160-189 mg/dLVery High LDL: greater than or equal to 190 mg/dL HDL Cholesterol 23(L) >40 mg/dL [facility] Comment:Desirable HDL: great er than 40 mg/dL Note: This HDL assay may give artificially low results in patients with liver disease. 06/02/2024 9:33 AM EST 06/02/2024 9:33 AM EST us Generic External Data Provider LAB BLOOD ORDERAB LES Final Result Performing Organization Address City/[facility]/ZIP Co de Phone Number [facility] [address] [place] [phone] * POCT TRINITY-14 Urine Drug Screen (05/27/2024 8:55 AM EST) Urine Urine specimen obtained by clean catch procedure / Unknown 05/27/2024 8:55 AM EST Narrative Yumiko, Remedios, RN - 05/27/2024 8:55 AM EST UTOX cup Lot#[id number] Exp. 02/26/26 Internal Pass Control Negative for all substances Joey Barreto MD POINT OF CARE TEST ENTER/EDIT OR DERABLES Final Result * Testosterone, Free (Dialysis) And Total, MS (05/12/2024 9:55 AM EST) Testosterone, Total 390 250 - 1100 ng/dL [facility] Comment:Men with clinically significant hypogonadalsymptoms and testosterone values repeatedly inthe range of the 200-300 ng/dL or less, maybenefit from testosterone treatment afteradequate risk and benefits counseling.For additional information, please refer tohttp://education.[employer]/faq/WjgqmByseaztgqhbuXTEZYFHEX754(This link is being provided for informational/educational purposes only.)This test was developed and its analytical performancecharacteristics have been determined by [employer], [place]. It hasnot been cleared or approved by the U.S. Food and DrugAdministration. This assay has been validated pursuantto the CLIA regulations and is used for clinicalpurposes. Testosterone, Free 66.3 35.0 - 155.0 pg/mL [facility] Comment:This test was develo ped and its analytical performancecharacteristics have been determined by [employer] [place], [place]. It hasnot been cleared or approved by the U.S. Food and DrugAdministration. This assay has been validated pursuantto the CLIA regulations and is used for clinicalpurposes.THIS TEST WAS PERFORMED AT:[employer] [id number] [place] [phone] NOONAN MD,PHD 05/12/2024 9:55 AM EST 05/12/2024 11:39 AM EST us Generic External Data Provider LAB BLOOD ORDERAB LES Final Result [facility] [address] [place] [phone] * PSA,Total (05/12/2024 9:55 AM EST) Prostate Specific Antigen 3.78 <0.05 - 4.0 ng/mL [facility] Comment:PSA methodology: Abb jose cruz Alinity i ChemiluminescentMicroparticle Immunoassay (CMIA) 05/12/2024 9:55 AM EST 05/12/2024 11:50 AM EST us Generic External Data Provider LAB BLOOD ORDERAB LES Final Result Performing Organization Address [facility] Co de Phone Number [facility] [address] [place] [phone] * (ABNORMAL) Hemoglobin A1c (05/12/2024 9:55 AM EST) Hemoglobin A1c 6.4(H) <6.0 % [facility] Comment:Hemoglobin A1C Refer ence Range Adults: 4.8 - 6.0 % Non diabetic: < 6.0 % Goal: < 7.0 %Additional Action Suggested: > 8.0 %Note: Hemoglobin A1c results are invalid for patients with abnormal amounts of HbF. Blood transfusions may impact the HbA1c concentration in the patient sample. Estimated Average Glucose 137 mg/dL [facility] Comment:eAG = Estimated ave rage glucose which is %A1C expressed asaverage glucose, using the formula of the J3H-RpwajdiTsaaqbf Glucose study (ADAG), Diabetes Care, Vol.31,#8,Jan. 2007 05/12/2024 9:55 AM EST 05/12/2024 11:39 AM EST us Generic External Data Provider LAB BLOOD ORDERAB LES Final Result Performing Organization Address [facility] Co de Phone Number [facility] [address] [place] [phone] * Stress test with myocardial perfusion (05/08/2024 8:01 AM EST) 05/08/2024 8:01 AM EST Narrative [facility] - 05/09/2024 1:22 PM EST ? [facility] ?[address] ?[place] [address] ?Nuclear Medicine Report ? Signed ? Patient: Dewitt,Efrain ?MR#: [id number] ? : 1960 ?Acct:[id number] ? Age/Sex: 63 / M ?ADM Date: 05/08/24 ? Loc: HO.CARD ? Attending Dr: Tl Jones MD ? Ordering Physician: Tl Jones MD ?? Date of Service: 05/08/24 ?? Procedure(s): NM cardiolite stress test ?? Accession Number(s): [id number] ? cc: Emperatriz Stoll NP; Tl Jones [...] Jones MD in OV> ?05/09/24 1319 ? DD/ 0801 ? TD/TT: 05/09/24 1005 ? Trials Manager: ? Procedure Note Nahed, Image - 05/09/2024 [place] [address] Nuclear Medicine Report Signed Patient: Efrain DewittMR#: [id number] : 1960cct:[id number] Age/Sex: 63 / MADM Date: 05/08/24 Loc: MOIS[facility] Attending Dr: Tl Jones MD Ordering Physician: Tl Jones MD Date of Service: 05/08/24 Procedure(s): NM cardiolite stress test Accession Number(s): [id number] cc: Emperatriz Stoll CODING SUPPORT SPECIALIST; Tl Jones MD EXERCISE MYOCARDIAL PERFUSION STUDY [...] by: Tl Jones MD 05/09/2024 01:19 PM [facility] Dictated By: Tl Jones MD Signed By: <Electronically signed by Tl Jones MD in OV> 05/09/24 1319 DD/ 0801 TD/TT: 05/09/24 1005 Trials Manager: us [facility] External Provider CV STRE SS PROCEDURES Edited Result - Final [facility] [address] [place] [phone] * Cytopath-cell enhanced (05/06/2024 4:37 PM EST) 05/06/2024 4:37 PM EST 05/07/2024 1:25 PM EST Narrative [facility] - 05/09/2024 9:42 AM EST ----- ------- Name: Efrain Dewitt ? Age/Sex: 63/M ? : 1960 Unit#: [id number] ?? Attend Dr: Elmira Mcdonald [facility] ?Re05/06/24 ?Status: DEP REF ? Location: .LAB ?Disch: ? ----- ------- SPEC : [id number] ?RECD: 05/07/24 ? STATUS: ??SOUT ? REQ NUM: [id number] ? ARPAN: 05/06/24-1636 ? SUBM DR: Elmira Mcdonald CLEANING MANAGER-BC ? ENTERED: ??05/07/24 ?SP TYPE: Cytology ? OTHR DR: Emperatriz Stoll CODING SUPPORT SPECIALIST ? ORDERED: ??Cyto-enhanced ? Diagnosis ?? Urine: [...] is prepared. Copies To: ?? Emperatriz Stoll CODING SUPPORT SPECIALIST ?? [address] ?? [place] [address] ?? [phone] ?? Elmira McdonaldP-BC ?? [facility] [facility] ?? [address] [place] [address] [address] ?? [employer] [address] ?? [phone] ?? [email or web address] ----- ------- Signed (signature on file) Jeanmarie Chavez MD 05/09/24 0942 ? ----- ------- ? END OF REPORT ? us Generic External Data Provider LAB CYTOLOGY SPEEDY DONG Final Result Performing Organization Address City/State/[facility] Co de Phone Number [facility] [address] [place], [place] [phone] from Last 3 Months Insurance [facility] [employer] Care Teams Senior Firewall Engineer Relationship Specialty Start Date End Date Name, MD Joey [address] [place] [address] PCP - General Internal Medicine 02/06/24 Rosa Deluca PharmD [address] [place] [address] Pharmacist Internal Medicine 12/03/23
--- OUTSIDE RECORDS SUMMARY | 2024-07-22 11:40 | XMS_ITS | Encounter Summary ---
Author Organization [employer] Address [address]t [place] [address] Care Team Providers Care Stock Checkerer Name Role Phone Rosa Deluca PharmD Unavailable [phone] Name, Joey MERINO Primary Care Provider Encounter Details Date Type Department Care Team [...] t he electric, gas, oil or water [employer] threatened to shut off services in your [...] Description 08/04/2024 9:30 AM EST Medication Management [facility] [address] [place] [address] Rosa Deluca, DamionD [address] [place] [address] 08/25/2024 9:00 AM EDT Clinical Support [facility] [address] [place] [address] Remedios Calderon RN 10/16/2024 10:00 AM EDT Office Visit [facility] [address] [place] [phone] Cassi Simms [address] [place] [address] documented as of this encounter Goals Goal [...] documented as of this encounter Care Teams Stock Checkerer Relationship Specialty Start Date End Date Name, MD Joey [address] [place] [address] PCP - General Internal Medicine 02/06/24 Rosa Deluca, Martha [address] [place] [address] Pharmacist Internal Medicine 12/03/23 documented as of this encounter
--- OUTSIDE RECORDS SUMMARY | 2024-07-22 11:40 | XMS_ITS | Encounter Summary ---
Author Organization [facility] Address [address] [place] [phone] Phone Care Team Providers Care Mill Stenciler Name Role Phone Name, Joey MERINO Primary Care Provider [phone] Reason for Visit * Reason Comments Chronic Kidney Disease Encounter Details Date Type Department Care Team (Late st Contact Info) Description 07/16/2024 3:15 PM EST Office Visit [facility] [address] [address] Patricia Fulton ARNP [address] [address] Chronic kidney disease, stage 4 [...] Index - - documented in this encounter Progress Notes * Patricia Fulton ARNP - 07/16/2024 3:15 PM EST Images from the original note were not included. Patient Name: Efrain Art, Male Date of : 1960, 63 y.o. Date: 07/16/2024 [] New Patient [x] Established Patient [] New Hospital Follow Up [] Established Hospital Follow Up [] Telemed Visit [] H&P Referring MD: No primary care provider on file. PCP: Name, MD Joey Reason For Visit: CKD 4, DM, HTN Efrain Art is a 63 y.o. male seen today in f/u re: adv CKD in setting of DM, HTN Followed by [facility] - pending cardiac bypass next week on 07/25/2024 Meds reviewed. Denies chest pain or shortness of breath. No blood in the urine or difficulties urinating. Complains of mild arthritic complaints but avoids use of NSAIDs. The following portions of the patient's chart were reviewed in this encounter and updated as appropriate: Allergies Meds Problems Med Hx Surg Hx Fam Hx Constitutional: Negative for chills and fever. HENT: Negative for congestion, hearing loss and nosebleeds. Eyes: Negative for blurred vision and impaired. Respiratory: Negative for cough and shortness of breath. Cardiovascular: Negative for chest pain, palpitations and leg swelling. Gastrointestinal: Negative for abdominal pain, diarrhea, nausea, vomiting and poor appetite. Genitourinary: Negative for dysuria, frequency, hematuria and urgency. Musculoskeletal: Negative. Skin: Negative for rash. Psychiatric/Behavioral: Negative. Full 13 point review of systems unremarkable except as noted above. Past Medical History: Diagnosis Date Chronic kidney disease, stage 4 (severe) (HCC) 08/08/2022 Gout Other and unspecified hyperlipidemia Primary hypertension 07/19/2022 Type 2 diabetes mellitus without complication (HCC) 07/19/2022 Past Surgical History: Procedure Laterality Date CORONARY STENT PLACEMENT Social History Tobacco Use Smoking status: Never Smokeless tobacco: Never Substance Use Topics Alcohol use: Never History reviewed. No pertinent family history. Current Outpatient Medications Medication Sig Dispense Refill Aspirin Low Dose 81 MG chewable tablet Chew 1 tablet 1 (one) time each day atorvastatin (LIPITOR) 80 MG tablet Take 80 mg by mouth 1 (one) time each day carvedilol (COREG) 12.5 MG tablet Take 12.5 mg by mouth in the morning and 12.5 mg in the evening. Dapagliflozin Propanediol (Farxiga) 10 MG tablet Take 10 mg by mouth daily ezetimibe (ZETIA) 10 MG tablet Take 10 mg by mouth 1 (one) time each day folic acid (FOLVITE) 1 MG tablet Take 1 tablet by mouth 1 (one) time each day gabapentin (NEURONTIN) 100 MG capsule Take 100 mg by mouth in the morning and 100 mg at noon and 100 mg in the evening. isosorbide mononitrate (IMDUR) 30 MG 24 hr tablet Take 1 tablet by mouth 1 (one) time each day Kerendia 10 MG tablet TAKE 1 TABLET BY MOUTH EVERY MORNING 90 tablet 2 Lantus SoloStar 100 UNIT/ML injection INJECT 20 UNITS SUBCUTANEOUSLY AT BEDTIME sacubitril-valsartan (Entresto) 24-26 MG per tablet Take 1 tablet by mouth in the morning and 1 tablet in the evening. Ventolin HFA 108 (90 Base) MCG/ACT inhaler INHALE 2 PUFFS EVERY 4 HOURS NEEDED FOR WHEEZING amLODIPine (NORVASC) 10 MG tablet Take 10 mg by mouth in the morning. (Patient not taking: Reportedon 07/16/2024) Sodium Zirconium Cyclosilicate 5 g pack Take 1 packet by mouth 1 (one) time each day for 3 days 3 each 0 No current facility-administered medications for this visit. No Known Allergies Objective: Vitals: 07/16/24 1539 BP: 104/77 Pulse: 83 Weight: 180 lb (81.6 kg) Vitals reviewed. Constitutional: He is oriented to person, place, and time. He does not appear ill. No distress. HEENT: Mouth/Throat: Oropharynx is clear and moist. Eyes: Conjunctivae are normal. Neck: No JVD present. Cardiovascular: Normal rate, regular rhythm and normal heart sounds. No murmur heard.He exhibits no edema. Pulmonary/Chest: Effort normal and breath sounds normal. No respiratory distress. Abdominal: Soft. There is no abdominal tenderness. No hernia. Neurological: He is alert and oriented to person, place, and time. Skin: Skin is warm and dry. No rash noted. No erythema. Psychiatric: He has a normal mood and affect. His behavior is normal. Judgment normal. No results found for: EGFRAFR eGFR Non-Afr Puerto Rican Date Value Ref Range Status 07/08/2024 31 Final Chemistry Lab Units 07/08/24 0000 07/31/23 0000 03/14/23 0949 08/18/22 1204 07/20/22 0000 CREATININE mg/dL 2.28* 2.68* 2.41* 2.76* 2.79* BUN mg/dL 35* 30* 23* 40* 32* BUN / CREAT RATIO -- -- -- -- 11 EGFRNAFR 31 32 -- -- 25 GLUCOSE -- -- -- -- 122 POTASSIUM 6.2* 4.3 4.7 5.1 4.7 SODIUM 145 140 142 141 142 CO2 mmol/L -- 28 29 CHLORIDE -- 105.0 107 103 107.0 ALBUMIN g/dL -- 4.1 -- 4.5 4.3 URIC ACID mg/dL -- -- -- 8.8* 7.3 BILIRUBIN TOTAL MG/DL -- -- -- -- 0.4 AST U/L -- -- -- -- 14 ALT U/L -- -- -- -- 17 Bone Mineral Lab Units 07/08/24 0000 07/31/23 0000 03/14/23 0949 08/18/22 1204 07/20/22 0000 CALCIUM mg/dL 9.7 9.4 9.5 9.8 9.2 PHOSPHORUS -- 2.9 -- 4.1 -- ALK PHOS U/L -- -- -- -- 40 MAGNESIUM -- 2.0 -- -- -- PTH pg/mL -- -- -- 13* -- VITAMIN D ng/mL -- -- -- 31.9 -- CBC Lab Units 07/08/24 0000 07/31/23 0000 07/20/22 0000 WBC AUTO 10*3/ML -- 6.6 6.5 MCV -- 93.5 87.3 HEMATOCRIT 38.0* 38.8* 36.3* HEMOGLOBIN 12.5* 12.7* 12.5* PLATELETS AUTO 10*3/UL 309 320 375 Labs Lab Units 07/20/22 0000 CHOLESTEROL TOTAL 182 HDL mg/dL 33 TRIGLYCERIDES 122 Urine Lab Units 08/18/22 1229 PROT/CREAT RATIO UR 0.10 PLAN: Assessment & Plan 63 Y/O M STAGE 4 CKD DIABETIC HYPERTENSIVE PATIENT CKD 4: c/w DN/HTN renal dis despite the absence of signif Uprot, Stable Creatinine, on Entresto DM: Target HgbA1c <7% HTN: well controlled; goal < 130/80 Metabolic Bone Disease of CKD: cont to track CA, Phos, HCO3, PTH and vit D levels and treat accordingly Hyperkalemia: Elevated K of 6.2 recently, no h/o hyperK To Maximize renal protection: - cont use LATANYA-inhibitor ( VERONICA or ARB) -cont SGLT2i -cont Kerendia -LDL target < 70 - cont to stress strict BP/BS control and avoid NSAIDS PLAN: Take Lokelma 5 gm QD x 3 days; Avoid high K foods, Recheck BMP in 1-2 days and again in 1 week for high K; check PTH/vit D; avoid NSAIDS; follow low NA diet; continue current BP med regimen. 1. Chronic kidney disease, stage 4 (severe) (HCC) 2. Hypertension 3. Renal osteodystrophy 4. Hyperkalemia Orders Placed This Encounter Basic metabolic panel Basic metabolic panel PTH, intact Renal function panel CBC Urine Albumin / Creatinine Ratio Urine Protein / creatinine ratio Sodium Zirconium Cyclosilicate 5 g pack Return in about 6 months (around 01/13/2025) for Next scheduled follow-up with Dr. Gates. MASOOD Gama Cosigned by Bran Saxena MD at 07/17/2024 5:46 PM EST documented in this encounter Plan of Treatment Upcoming Encounters Date Type Department Care Team (Latest Contact Info) Description 07/23/2024 Orders Only [facility] [address] [address] Patricia Fulton ARNP [address] [address] Chronic kidney disease, stage 4 (severe) (HCC); Hypertension; Hyperkalemia 08/04/2024 Orders Only [facility] [address] [place] [address] Kevin Gaets MD [address] [address] Chronic kidney disease, stage 4 (severe) (HCC); Renal osteodystrophy 01/12/2025 1:15 PM EDT Office Visit [facility] [address] [address] Kevin Gates MD [address] [address] Scheduled Orders Name Type Priority [...] 9.7 8.7 - 10.7 mg/dL eGFR Non-Afr Puerto Rican 31 07/08/2024 Historical Provider LAB BLOOD ORDERABLES Malena l Result documented in this encounter Visit Diagnoses Diagnosis Chronic kidney disease, stage 4 (severe) (HCC)- Primary Hypertension Renal osteodystrophy Hyperkalemia Chronic kidney disease, stage 4 (severe) (HCC) Hypertension Hyperkalemia Chronic kidney disease, stage 4 (severe) (HCC) Renal osteodystrophy documented in this encounter Care Teams Mill Stenciler Relationship Specialty Start Date End Date Name, MD Joey [address] [place] [address] PCP - General Internal Medicine 07/16/24 documented as of this encounter
--- OUTSIDE RECORDS SUMMARY | 2024-07-22 11:40 | XMS_ITS | Encounter Summary ---
Author Organization [facility] Address [address] [place] [address] Care Team Providers Care Classification Case Manager Name Role Phone Emperatriz Stoll Primary Care Provider + Rosa Deluca PharmD Unavailable [phone] Name, Joey MERINO Primary Care Provider [phone] Reason for Visit * Reason Comments Med Refill Encounter Details Date Type Department Care Team ([facility] st Contact Info) Description 01/12/2023 Refill [facility] [address] [place] [address] Emperatriz Stoll FNP [address] [place], [place] [phone] Other chronic pain Social History Tobacco Use [...] Medication Management [facility] [address] [place] [address] Rosa Deluca PharmD [address] [place], [place] 08/25/2024 9:00 AM EDT Clinical Support [facility] [address] [place] [address] Remedios Calderon, RN 10/16/2024 10:00 AM EDT Office Visit [facility] [address] [place] [address] Cassi Simms [address] [place] [address] documented as of this encounter Visit Diagnoses Diagnosis Other chronic pain documented in this encounter Additional Health Concerns Assessment Noted Time PHQ-9 Depression Total Score: 0 12/14/19 23 11:09 AM EDT documented as of this encounter Care Teams Classification Case Manager Relationship Specialty Start Date End Date Emperatriz Stoll FNP [address] [place] [address] PCP - General Family Medicine 07/19/22 02/05/24 Name, MD Joey [address] [place] [address] PCP - General Internal Medicine 02/06/24 Rosa Deluca PharmD [address] [place] [address] Pharmacist Internal Medicine 12/03/23 documented as of this encounter
--- OUTSIDE RECORDS SUMMARY | 2024-07-22 11:40 | XMS_ITS | Encounter Summary ---
Author Organization [facility] Address [address] [place] [address] Care Team Providers Care Back Maker Name Role Phone Emperatriz Stoll Primary Care Provider [phone] Rosa Deluca PharmD Unavailable [phone] Name, Joey MERINO Primary Care Provider [phone] Encounter Details Date Type Department Care Team (Late Contact Info) Description 08/21/2022 Orders Only [facility] [address] [place] [address] Emperatriz Stoll FNP [address] [place], [place] [phone] Social History Tobacco Use Types Packs/Day Years [...] 9:30 AM EST Medication Management [facility] [address] [place] [address] Rosa Deluca PharmD [address] [place] [address] 08/25/2024 9:00 AM EDT Clinical Support [facility] [address] [place] [address] Remedios Calderon, KYLER 10/16/2024 10:00 AM EDT Office Visit [facility] [address] [place] [address] Cassi Simms [address] [place] [address] documented as of this encounter Visit Diagnoses Not on filedocumented in this encounter Additional Health Concerns Assessment Noted Time PHQ-9 Depression Total Score: 7 07/19/19 23 3:07 PM EST documented as of this encounter Care Teams Back Maker Relationship Specialty Start Date End Date Emperatriz Stoll FNP [address] [place] [address] PCP - General Family Medicine 07/19/22 02/05/24 Joey Barreto MD [address] [place] [address] PCP - General Internal Medicine 02/06/24 Rosa Deluca PharmD [address] [place] [address] Pharmacist Internal Medicine 12/03/23 documented as of this encounter
--- OUTSIDE RECORDS SUMMARY | 2024-07-22 11:40 | XMS_ITS | Encounter Summary ---
Author Organization [employer] Address [address] [place] [address] Care Team Providers Care Supervisor Instrument Mechanics Name Role Phone Rosa Deluca PharmD Unavailable [phone] Name, Joey MERINO Primary Care Provider Reason for Visit * Reason Comments Med Refill Patient walked in re questing med refill for tramadol. Patient stated he is due every of every month. Encounter Details Date Type Department Care Team (Late st Contact Info) Description 06/27/2024 Refill [facility] [address] [place] [address] Name, MD Joey [address] [place] [address] Other chronic pain Social History Tobacco Use [...] Description 08/04/2024 9:30 AM EST Medication Management [facility] [address] [place] [address] Rosa Deluca, PharmD [address] [place] [address] 08/25/2024 9:00 AM EDT Clinical Support [facility] [address] [place] [address] Remedios Calderon, KYLER 10/16/2024 10:00 AM EDT Office Visit [facility] [address] [place] [address] Cassi Simms [address] [place] [address] documented as of this encounter Goals Goal [...] as of this encounter Care Teams Supervisor Instrument Mechanics Relationship Specialty Start Date End Date Name, MD Joey [address] [place] [address] PCP - General Internal Medicine 02/06/24 Rosa Deluca PharmD [address] [place] [address] Pharmacist Internal Medicine 12/03/23 documented as of this encounter
--- OUTSIDE RECORDS SUMMARY | 2024-07-22 11:40 | XMS_ITS | Encounter Summary ---
Author Organization [employer] Address [address] [place] [address] Care Team Providers Care Insurance Claims Assistant Name Role Phone Emperatriz Stoll Primary Care Provider +- Rosa Deluca PharmD Unavailable [phone] Name, Joey MERINO Primary Care Provider [phone] Reason for Visit * Reason Onset Date Comments FYI 04/19/2023 Encounter Details Date Type Department Care Team ([facility] st Contact Info) Description 04/19/2023 Telephone [facility] [address] [place], [place] [phone] Emperatriz Stoll FNP [address] [place] [address] FY Social History Tobacco Use Types Packs/Day [...] 04/19/2023 8:18 AM EST Tc from [facility] would like to inform PCP that pt was [place] [facility] [place]-04[place]17[place]23 for Chest pain, fever and SOB. States they placed a stent, pt was diagnosed with pericarditis. Pt was advised to follow up with Dr. Jones Social Sciences Department Chair within 3-4 weeks. Also stated pt will be visited by a community nurse from [facility]. Advised will leave a message as FYI if any questions please contact at [phone] documented in this encounter Plan of Treatment Upcoming Encounters Date Type Department Care Team (Late st Contact Info) Description 08/04/2024 9:30 AM EST Medication Management [facility] [address] [place] [address] Rosa Deluca PharmD [address] [place] [address] 08/25/2024 9:00 AM EDT Clinical Support [facility] [address] [place] [address] Remedios Calderon RN 10/16/2024 10:00 AM EDT Office Visit [facility] [address] [place] [address] Cassi Simms [address] [place] [address] documented as of this encounter Goals Goal [...] documented as of this encounter Care Teams Insurance Claims Assistant Relationship Specialty Start Date End Date Emperatriz Stoll [place] [address] PCP - General Family Medicine 07/19/22 02/05/24 Joey Barreto MD [place], [place] [phone] PCP - General Internal Medicine 02/06/24 Rosa Deluca, Martha [address] [place] [address] Pharmacist Internal Medicine 12/03/23 documented as of this encounter
--- OUTSIDE RECORDS SUMMARY | 2024-07-22 11:40 | XMS_ITS | Encounter Summary ---
Demographics Address [address] [place] [address] [address] [place] [address] Mobile Phone Home Phone Email Address Preferred Language es Marital Status Church Affiliation Unknown Race White Ethnic Group or Author Organization [employer] Address [address] [facility] [address] 7t [place] [address] Care Team Providers Care Supply Chain Planner Name Role Phone Rosa Deluca PharmD Unavailable [phone] Name, Joey MERINO Primary Care Provider [phone] Encounter Details Date Type Department Care Team ([facility] st Contact Info) Description 07/16/2024 Orders Only [facility] External Provider, [facility] Social History Tobacco Use Types Packs/Day [...] Description 08/04/2024 9:30 AM EST Medication Management [facility] [address] [place] [address] Rosa Deluca PharmD [address] [place] [address] 08/25/2024 9:00 AM EDT Clinical Support [facility] [address] [place] [address] Remedios Calderon RN 10/16/2024 10:00 AM EDT Office Visit [facility] ADULT DENTAL [address] [place] [address] Cassi Simms [address] [place] [address] documented as of this encounter Goals Goal Patient Goal Type Associated Problems Recent Progress Patient-Stated? Author Blood Pressure < 140/90 Blood Pressure 130/64(2024 9:43 AM EST) No Donald Johnson Hemoglobin A1c < 7.5 Result Component 6(07/14/2024 9:46 AM EST) No Donald Johnson documented as of this encounter Procedures Procedure Name Priority Date/Time Associated Diagnosis Comments [facility] US CAROTID ARTERY DUPLEX BILATERAL Routine 07/18/2024 8:03 AM EST [facility] US LOWER EXTREMITY VENOUS DUPLEX BILATERAL Routine 07/16/2024 8:50 AM EST documented in this encounter Results * VASC US Carotid Artery Duplex Bilateral (07/18/2024 8:03 AM EST) 07/18/2024 8:03 AM EST Narrative [facility] IMAGING - 07/18/2024 8:04 AM EST ? [facility] ?[address] ?[place] [address] ? Ultrasound Report ? Signed ? Patient: Esdras,Efrain ?MR#: [id number] ? : 1960 ?Acct:[id number] ? Age/Sex: 63 / M ?ADM Date: 07/17/24 ? Loc: HO.US ? Attending Dr: Demarcus Portillo MD ? Ordering Physician: Demarcus Portillo MD ?? Date of Service: 07/17/24 ?? Procedure(s): US carotid duplex BI ?? Accession Number(s): [id number] ? cc: Emperatriz Stoll NP; Demarcus Portillo MD ? CLINICAL HISTORY: atherosclerosis [...] left external carotid arteries. There ?? are ixtg-ge-xkwjddul atheromatous atheromatous plaques proximal left ?? internal carotid artery mild atheromatous plaques left common carotid ?? artery gxgp-lx-dzsqqmav atheromatous plaques within the left carotid bulb. [...] in OV> ? 07/18/24 0804 ? DD/ 0803 ? TD/TT: 07/18/24 0803 ? Education Program Associate: ? Procedure Note Nahed, Image - 07/18/[address] [address] Ultrasound Report Signed Patient: Efrain DewittMR#: [id number] : 1Acct:[id number] Age/Sex: 63 / MADM Date: 07/17/24 Loc: HO.US Attending Dr: Demarcus Portillo MD Ordering Physician: Demarcus Portillo MD Date of Service: 07/17/24 Procedure(s): US carotid duplex BI Accession Number(s): [id number] cc: Emperatriz Stoll WEED ERADICATOR; Demarcus Portillo MD CLINICAL HISTORY: atherosclerosis US [...] and left external carotid arteries. There are zftw-kg-qhicoxee atheromatous atheromatous plaques proximal left internal carotid artery mild atheromatous plaques left common carotid artery kyfv-hl-smlkikar atheromatous plaques within the left carotid bulb. [...] signed by Paul Velarde MD in OV> 07/18/24 0804 DD/ 0803 TD/TT: 07/18/24 0803 Education Program Associate: us [facility] External Provider CV VASC ULAR PROCEDURES Edited Result - Final [facility] [address] [place] [address] * VASC US Lower Extremity Venous Duplex Bilateral (07/16/2024 8:50 AM EST) 07/16/2024 8:50 AM EST Narrative [facility] - 07/16/2024 10:13 AM EST ? [facility] ?[address] ?[place] [address] ? Ultrasound Report ? Signed ? Patient: Dewitt,Efrain ?MR#: [id number] ? : 1960 ?Acct:[id number] ? Age/Sex: 63 / M ?ADM Date: 07/16/24 ? Loc: HO.US ? Attending Dr: Demarcus Portillo MD ? Ordering Physician: Demarcus Portillo MD ?? Date of Service: 07/16/24 ?? Procedure(s): US venous duplex LE BI ?? Accession Number(s): [id number] ? cc: Emperatriz Stoll NP; Demarcus Portillo [...] DD/ 0850 ? TD/TT: 07/16/24 0919 ? Education Program Associate: ? Procedure Note Robi Dockery - 07/16/[address] [address] Ultrasound Report Signed Patient: Efrain DewittMR#: [id number] : 1960cct:[id number] Age/Sex: 63 / MADM Date: 07/16/24 Loc: HO.US Attending Dr: Demarcus Portillo MD Ordering Physician: Demarcus Portillo MD Date of Service: 07/16/24 Procedure(s): US venous duplex LE BI Accession Number(s): [id number] cc: Emperatriz Stoll WEED ERADICATOR; Demarcus Portillo MD EXAMINATION: US LOWER EXTREMITY [...] 07/16/24 1010 DD/ 0850 TD/TT: 07/16/24 0919 Education Program Associate: us [facility] External Provider CV VASC ULAR PROCEDURES Final Result [facility] [address] [place] [address] documented in this encounter Visit Diagnoses Not on filedocumented in this encounter Additional Health Concerns Assessment Noted Time PHQ-9 Depression Total Score: 8 06/06/19 25 11:44 AM EST documented as of this encounter Care Teams Supply Chain Planner Relationship Specialty Start Date End Date Name, MD Joey [address] [place] [address] PCP - General Internal Medicine 02/06/24 Rosa Deluca PharmD [address] [place] [address] Pharmacist Internal Medicine 12/03/23 documented as of this encounter
--- OUTSIDE RECORDS SUMMARY | 2024-07-22 11:40 | XMS_ITS | Encounter Summary ---
Author Organization [employer] Address [address] [facility] [address] [address] 7t [place] [address] Care Team Providers Care Washing And Screening Plant Supervisor Name Role Phone Emperatriz Stoll Primary Care Provider [phone] Rosa Deluca PharmD Unavailable [phone] Name, Joey MERINO Primary Care Provider [phone] Encounter Details Date Type Department Care Team (Late st Contact Info) Description 04/06/2023 Orders Only [facility] MED & PEDS [address] [place] [address] Emperatriz Stoll FNP [address] [place] [address] Social History Tobacco Use Types Packs/Day Years [...] 9:30 AM EST Medication Management [facility] MEDICINE [address] [place] [address] Rosa Deluca PharmD [address] [place] [address] 08/25/2024 9:00 AM EDT Clinical Support [facility] MEDICINE [address] [place] [address] Remedios Calderon, KYLER 10/16/2024 10:00 AM EDT Office Visit [facility] ADULT DENTAL [address] [place] [address] Cassi Simms [address] [place] [address] documented as of this encounter Goals Goal [...] documented as of this encounter Care Teams Washing And Screening Plant Supervisor Relationship Specialty Start Date End Date Emperatriz Stoll FNP [address] [place] [address] PCP - General Family Medicine 07/19/22 02/05/24 Joey Barreto MD [address] [place], [place] [phone] PCP - General Internal Medicine 02/06/24 Rosa Deluca, DamionD [address] [place] [address] Pharmacist Internal Medicine 12/03/23 documented as of this encounter
--- OUTSIDE RECORDS SUMMARY | 2024-07-22 11:41 | XMS_ITS | Encounter Summary ---
Author Organization [employer] Address [address] [facility] 7t [place] [address] Care Team Providers Care Case Making Machine Operator Name Role Phone Emperatriz Stoll Primary Care Provider [phone] Rosa Deluca PharmD Unavailable [phone] Name, Joey MERINO Primary Care Provider [phone] Reason for Referral * Consultation (Routine) - Closed Specialty Diagnoses / Procedures Referred By Justina willis Referred To Contact Nutrition Diagnoses Controlled type 2 diabetes mellitus without complication, with long-term current use of insulin (CMS/HCC) Emperatriz Stoll FNP [address] [place] [address] Phone: tel: fax: Referral ID Status Reason Start Date Expiration Date V isits Requested Visits Authorized [id number] Closed Specialty Services Required 11/06/2023 11/05/2024 1 1 Encounter Details Date Type Department Care Team (Late st Contact Info) Description 11/06/2023 Orders Only [facility] MED & PEDS [address] [place] [address] Emperatriz Stoll FNP [address] [place] [address] Controlled type 2 diabetes mellitus without complication, [...] 08/04/2024 9:30 AM EST Medication Management [facility] MED[facility]INE [address] [place] [phone] Rosa Deluca, PharmD [address] [place] [address] 08/25/2024 9:00 AM EDT Clinical Support [facility] [address] [place] [phone] Remedios Calderon, KYLER 10/16/2024 10:00 AM EDT Office Visit [facility] ADULT DENTAL [address] [place] [phone] Cassi Simms [address] [place] [address] Scheduled Referrals Name Type Priority Associated Diagnoses [...] documented as of this encounter Care Teams Case Making Machine Operator Relationship Specialty Start Date End Date Emperatriz Stoll FNP [address] [place] [address] PCP - General Family Medicine 07/19/22 02/05/24 Joey Barreto MD [address] [place] [address] PCP - General Internal Medicine 02/06/24 Rosa Deluca PharmD [address] [place] [address] Pharmacist Internal Medicine 12/03/23 documented as of this encounter
--- OUTSIDE RECORDS SUMMARY | 2024-07-22 11:41 | XMS_ITS | Encounter Summary ---
Author Organization [employer] Address [address] [facility]t [place] [address] Care Team Providers Care Sensor Technician Name Role Phone Emperatriz Stoll Primary Care Provider [phone] Rosa Deluca PharmD Unavailable [phone] Name, Joey MERINO Primary Care Provider [phone] Reason for Visit * Reason Onset Date Comments Med Refill 08/30/2023 Encounter Details Date Type Department Care Team ([facility] st Contact Info) Description 08/30/2023 Telephone [facility] MED[facility]INE [address] [place], [place] [phone] Emperatriz Stoll FNP [address] [place], [place] [phone] Med Refill Social History Tobacco Use Types [...] 50 MG tablet To be sent to: [facility] - [place], [place] - [address] [place] [address] documented in this encounter Plan of Treatment Upcoming Encounters Date Type Department Care Team ([facility] st Contact Info) Description 08/04/2024 9:30 AM EST Medication Management [facility] [address] [place] [address] Rosa Deluca, PharmD [address] [place] [address] 08/25/2024 9:00 AM EDT Clinical Support [facility] [address] [place] [address] Remedios Calderon RN 10/16/2024 10:00 AM EDT Office Visit [facility] ADULT DENTAL [address] [place] [address] Cassi Simms [address] [place] [address] documented as of this encounter Goals Goal [...] documented as of this encounter Care Teams Sensor Technician Relationship Specialty Start Date End Date Emperatriz Stoll FNP [address] [place] [address] PCP - General Family Medicine 07/19/22 02/05/24 Name, MD Joey [address] [place] [address] PCP - General Internal Medicine 02/06/24 Rosa Deluca, DamionD [address] [place] [address] Pharmacist Internal Medicine 12/03/23 documented as of this encounter
--- OUTSIDE RECORDS SUMMARY | 2024-07-22 11:41 | XMS_ITS | Encounter Summary ---
Author Organization [employer] Address [address] [facility] [address] 7t [place] [address] Care Team Providers Care Room Service Supervisor Name Role Phone Emperatriz Stoll Primary Care Provider +1 Rosa Deluca PharmD Unavailable [phone] Name, Joey MERINO Primary Care Provider [phone] Reason for Visit * Reason Comments Med Refill Encounter Details Date Type Department Care Team ([facility] st Contact Info) Description 2023 Refill [facility] [address] [place] [address] Emperatriz Stoll FNP [address] [place], [place] [phone] Social History Tobacco Use Types Packs/Day Years [...] EST Medication Management [facility] [address] [place] [address] Rosa Deluca, DamionD [address] [place] [address] 08/25/2024 9:00 AM EDT Clinical Support [facility] [address] [place] [address] Remedios Calderon RN 10/16/2024 10:00 AM EDT Office Visit [facility] ADULT DENTAL [address] [place] [address] Cassi Simms [address] [place] [address] documented as of this encounter Goals Goal [...] documented as of this encounter Care Teams Room Service Supervisor Relationship Specialty Start Date End Date Emperatriz Stoll FNP [address] [place] [address] PCP - General Family Medicine 07/19/22 02/05/24 Name, MD Joey [address] [place] [address] PCP - General Internal Medicine 02/06/24 Rosa Deluca, DamionD [address] [place] [address] Pharmacist Internal Medicine 12/03/23 documented as of this encounter
--- OUTSIDE RECORDS SUMMARY | 2024-07-22 11:41 | XMS_ITS | Encounter Summary ---
Author Organization [facility] Address [address] [facility] [address] [place] [address] Phone Care Team Providers Care Crown Ironer Name Role Phone Name, Joey MERINO Primary Care Provider Encounter Details Date Type Department Care Team (Late st Contact Info) Description 08/09/2022 Telephone [facility] [address] [facility] 200 [place] [address] Patricia Deras Social History Tobacco [...] Orders Only [facility] [address] [facility] 204 [place] [address] Patricia Fulton ARNP [address] [facility] 204 [place] [address] Chronic kidney disease, stage 4 (severe) (HCC); Hypertension; Hyperkalemia 08/04/2024 Orders Only [facility] [address] [place] [address] Kevin Gates MD [address] [address] Chronic kidney disease, stage 4 (severe) (HCC); Renal osteodystrophy 01/12/2025 1:15 PM EDT Office Visit [facility] [address] [phone] Kevin Gates MD [address] [phone] documented as of this encounter Visit Diagnoses Not on filedocumented in this encounter Care Teams Crown Ironer Relationship Specialty Start Date End Date Name, MD Joey [address] [place] [address] PCP - General Internal Medicine 07/16/24 documented as of this encounter
--- OUTSIDE RECORDS SUMMARY | 2024-07-22 11:41 | XMS_ITS | Clinical Summary ---
Author Organization [facility] Address [address] [place] [address] Phone Care Team Providers Care Oil Well Cable Tool Operator Name Role Phone Name, Joey MERINO Primary Care Provider [phone] Allergies No known active allergies Medications amLODIPine [...] mouth 1 (one) time each day Active losartan (COZAAR) 25 MG tablet Take [...] . 025 Discontin ued(Med List Maintenan ce) Sodium Zirconium Cyclosilicate 5 g packIndications: Chronic kidney disease, stage 4 (severe) ([facility]),Hypertensi on,Hyperkalemia Take 1 packet by mouth 1 (one) time each day for 3 days 3 each 07/16/19 25 025 Active Problems Problem Noted Date Diagnosed Date [...] Office Visit [facility] [address] [facility] 204 [place] [address] Patricia Fulton ARNP Chronic kidney disease, stage 4 (severe) ([facility]) (Primary Dx); Hypertension; Renal osteodystrophy; Hyperkalemia 05/19/2024 Refill [facility] [address] [place] [place] [address] Kevin Gates MD from Last 3 [...] Orders Only [facility] [address] [place] [address] Patricia Fulton ARNP [address] [phone] Chronic kidney disease, stage 4 (severe) (HCC); Hypertension; Hyperkalemia 08/04/2024 Orders Only [facility] [address] [place] [address] Kevin Gates MD [address] [address] Chronic kidney disease, stage 4 (severe) (HCC); Renal osteodystrophy 01/12/2025 1:15 PM EDT Office Visit [facility] [address] [address] Kevin Gates MD [address] [address] Health Maintenance Due Date Last [...] 9.7 8.7 - 10.7 mg/dL eGFR Non-Afr Tunisian 31 07/08/2024 [facility] Provider LAB BLOOD ORDERABLES Malena l Result from Last 3 Months Insurance [employer] ONE CARE DUAL SNP ([id number]) [facility] ONE CARE DUAL SNP ([id number]) Care Teams Oil Well Cable Tool Operator Relationship Specialty Start Date End Date Name, MD Joey [address] [place] [address] PCP - General Internal Medicine 07/16/24
[2024-07-22 13:40] LABS: Anion Gap 10 (12-20); Blood Urea Nitrogen 29 mg/dL (9-16); Calcium 8.7 mg/dL (8.4-10.2); Carbon Dioxide 25 mmol/L (22-29); Chloride 112 mmol/L (96-108); Estimated Glomerular Filt Rate 38; Glucose Random 78 mg/dL (60-115); Potassium 5.2 mmol/L (3.3-5.1); Sodium 142 mmol/L (135-145)
[2024-07-22 13:41] LABS: Cholesterol 79 mg/dL (<200); HDL Cholesterol 21 mg/dL (>40); LDL Cholesterol Calculated 41 mg/dL (<100); Triglycerides 85 mg/dL (<150)
== END 2024-07-22 10:38 | disposition home or self-care (01) ==
LOC: HO.HHCL 10:37
PROVIDERS: Internal Medicine Cardiovascular Disease; Visit Provider Internal Medicine Nephrology
DX: N18.4 Chronic kidney disease, stage 4 (severe) (principal); I25.10 Atherosclerotic heart disease of native coronary artery without angina pectoris; I10 Essential (primary) hypertension; E87.5 Hyperkalemia
CPT/HCPCS: 36415; 80048; 80061

== ENCOUNTER 2024-07-24 08:36 | Outpatient (AMB) | payer OTHER, SELFPAY ==
[2024-07-24 08:40] VITALS: BP 90/52; PULSE 88; BMI 30.6
--- NOTE | 2024-07-24 08:40 | MHC.OFFVIS ---
Vital Signs 07/24/24 08:40 Height 5 ft 5 in Weight 183 lb 13.848 oz BMI 30.6 BP 90/52 L Blood Pressure Location Lt brachial Position Sitting Pulse 88 Pulse Source Pulse Oximeter Intake Visit Reasons: 1m follow up Director Check Required: Yes Director Check Language: Die Storage Clerk Name: voice hensley [id number] Allergies No Known Allergies Allergy (Verified 07/24/24 08:42) Medication List - Last Reconciled 07/24/24 by RUTHANN Hobbs amlodipine 10 mg PO DAILY ascorbic acid (vitamin C) (Vitamin C) 500 mg PO DAILY aspirin (Pilar Low Dose Aspirin) 81 mg PO DAILY atorvastatin 80 mg PO DAILY 90 days blood sugar diagnostic ([employer] Ultra Test strips) As directed carvedilol 12.5 mg PO BID colchicine 0.3 mg PO DAILY dapagliflozin propanediol (Farxiga) 10 mg PO DAILY 30 days ezetimibe (Zetia) 10 mg PO DAILY ferrous sulfate (FeroSul) mg PO folic acid 1 mg PO DAILY gabapentin 300 mg PO BID insulin glargine (Lantus Solostar U-100 Insulin) units subcut isosorbide mononitrate ER 60 mg PO DAILY sacubitril-valsartan 24-26 mg (Entresto) 1 tab PO BID tramadol 50 mg PO Q8H PRN HPI HPI 1m follow up: Details: Efrain is a 63-year-old male with past medical history of hypertension, hyperlipidemia, diabetes, chronic kidney disease, prior smoking, CAD with ACS 04/2023 with ARI to OM2 who recently had abnormal stress test and underwent cardiac catheterization showing significant three-vessel coronary artery disease. He was referred to Cardiac surgery and now presents for follow-up. Today he reports that he is scheduled to undergo coronary artery bypass grafting tomorrow a.m. He has been doing well since his last visit in June. At that time he was reporting some chest tightness however he says that has since resolved. He is no longer having tingling in his left arm. He has shortness of breath in the cold air which is not new for him. He denies PND, orthopnea or edema. No palpitations, presyncope, syncope. he is taking his meds as directed some of which are on hold due to his planned surgery. He has been doing only light activities. [facility] Medical History ACS (acute coronary syndrome) Diabetic retinopathy Diabetes Hypertension CKD (chronic kidney disease) Exertional chest pain Smoker Surgical History Stented coronary artery Hx of cardiac catheterization Family History Mother No problems noted. Father No problems noted. Social History e-Cigarette/Vaping Use: Never Used Current occupational status: unemployed Cognitive needs: No Hearing needs: No Vision needs: Yes (wears glasses) Review of Systems Const All systems reviewed & are unremarkable except as noted in HPI and below ENT Denies dizziness Card Denies chest pain, Denies chest pain at rest, Denies chest pain with activity, Denies rapid heart rate, Denies pedal edema, Denies edema, Denies leg edema, Denies lightheadedness, Denies palpitations, Denies dyspnea, Denies dyspnea on exertion and Denies orthopnea Resp Denies cough, Denies dyspnea and Denies dyspnea on exertion GI Denies hematochezia and Denies change in stool character Musc Denies abnormal gait, Denies limited range of motion, Denies muscle cramps, Denies muscle weakness, Denies numbness, Denies radiating pain into limb, Denies stiffness and Denies tingling Neuro Denies abnormal gait, Denies dizziness, Denies numbness and Denies tingling Endo Denies palpitations Physical Exam Vital Signs: Last Vital Signs Pulse 88 07/24/24 08:40 BP 90/52 L 07/24/24 08:40 BMI result Body Mass Index 30.6 Const General: cooperative, healthy appearing, comfortable and no acute distress Orientation/consciousness: patient oriented x3 Neck Neck: Yes normal visual inspection and Yes no JVD Resp Effort & Inspection: normal respiratory effort Auscultation: clear to auscultation bilaterally, no crackles, no rales, no rhonchi and no wheezes Cardio Jugular venous distension: no JVD Rate: regular rate Rhythm: regular rhythm Heart sounds: S1 normal heart sound present, S2 normal heart sound present, no murmurs and no rubs Neuro General: patient oriented x3 Extrem General: Yes normal to inspection and No no pedal edema Psych Appearance: grossly normal Mental Status: mental status grossly normal Speech and movement: Normal speech and movement present Assessment & Plan Assessment & Plan (1) CAD (coronary artery disease): Code(s): I25.10 - Atherosclerotic heart disease of [place] coronary artery without angina pectoris Category: Medical Plan: History of CAD with ACS 04/2023 with cardiac catheterization and ARI placed to OM2. He has been maintained on dual antiplatelet therapy since that time as well as high-dose statin. He had an echocardiogram 02/22/2024 showing EF 35-40%, grade 1 diastolic dysfunction with regional wall motion abnormality consistent with ischemic cardiomyopathy. (prior echo 08/24/2023 showed EF 51% with inferior and anterior lateral wall motion abnormalities) this led to a nuclear stress test was done on 05/08/2024 showing reversible moderate size defect in the basal and mid anterior wall suggestive of ischemia with fixed defect in the inferior lateral wall which could represent either ischemia or nontransmural infarct, EF 55%. He then had cardiac catheterization on 06/12/2024 showing significant CAD with recommendation for coronary artery bypass grafting. He saw the surgeon last month and is now scheduled for coronary artery bypass grafting tomorrow morning. Today he denies any anginal symptoms. He has been doing only light physical activities. He has been compliant with his meds and has the appropriate ones on hold for his procedure. No medication changes made at this time. Will arrange follow-up 1 month post surgery, sooner if needed. (2) S/P cardiac catheterization: Comment: 06/12/2024, left main normal, lad mid 70% stenosis, IFR 0.83, OM1 ISR 90%, OM2 stent present, proximal RCA 35% stenosis, right PDA 85% stenosis, Coronary artery bypass grafting referral made Code(s): Z98.890 - Other specified postprocedural states Category: Surgical (3) Stented coronary artery: Comment: , April 2023 present with acute coronary syndrome undergoing drug-eluting stent to OM2 for 95% stenosis. Mild disease in RCA and LAD. 85% lesion in the proximal section RPDA Code(s): Z95.5 - Presence of coronary angioplasty implant and graft Category: Surgical (4) Abnormal nuclear stress test: Code(s): R94.39 - Abnormal result of other cardiovascular function study Category: Medical Plan: As above (5) Hypertension: Code(s): I10 - Essential (primary) hypertension Category: Medical Plan: Blood pressure on the low side today, 90/52, asymptomatic. Recheck done by me 98/52. No med changes made. (6) Cardiomyopathy: Code(s): I42.9 - Cardiomyopathy, unspecified Category: Medical Plan: Recent echo with new cardiomyopathy. He does have a known history of coronary artery disease. This is likely ischemic cardiomyopathy. No clinical signs of heart failure on examination. He is on carvedilol, Entresto and Farxiga for neurohormonal modulation. -Farxiga on hold for his surgery. Plan Time spent on chart review, documentation, interviewed assessment Coding Level of Care Code Est Pt Level 4 (36002) Complex EM visit Add On G2211 Diagnoses CAD (coronary artery disease) I25.10 S/P cardiac catheterization Z98.890 Stented coronary artery Z95.5 Abnormal nuclear stress test R94.39 Hypertension I10 Cardiomyopathy I42.9 Time Spent (min) 30
--- OUTSIDE RECORDS SUMMARY | 2024-07-24 09:01 | XMS_ITS | Encounter Summary ---
Author Organization [employer] Address [address] [place] [address] Care Team Providers Care Clinical Research Associate Name Role Phone Emperatriz Stoll Primary Care Provider +[phone] Rosa Deluca PharmD Unavailable [phone] Name, Joey MERINO Primary Care Provider [phone] Encounter Details Date Type Department Care Team (Late st Contact Info) Description 04/06/2023 Orders Only [facility] MED & PEDS [address] [place] [address] Emperatriz Stoll FNP [address] [place] [address] Social History Tobacco Use Types Packs/Day Years [...] Description 08/04/2024 9:30 AM EST Medication Management [facility] MEDICINE [address] [place] [address] Rosa Deluca PharmD [address] [place] [address] 08/25/2024 9:00 AM EDT Clinical Support [facility] MEDICINE [address] [place] [address] Remedios Calderon, KYLER 10/16/2024 10:00 AM EDT Office Visit [facility] ADULT DENTAL [address] [place] [address] Cassi Simms [address] [place] [address] documented as of this encounter Goals Goal [...] documented as of this encounter Care Teams Clinical Research Associate Relationship Specialty Start Date End Date Emperatriz Stoll FNP [address] [place] [address] PCP - General Family Medicine 07/19/22 02/05/24 Joey Barreto MD [address] [place], [place] [phone] PCP - General Internal Medicine 02/06/24 Rosa Deluca, DamionD [address] [place] [address] Pharmacist Internal Medicine 12/03/23 documented as of this encounter
--- OUTSIDE RECORDS SUMMARY | 2024-07-24 09:01 | XMS_ITS | Encounter Summary ---
Author Organization [employer] Address [address] [place] [address] Care Team Providers Care Abattoir Supervisor Name Role Phone Emperatriz Stoll Primary Care Provider [phone] Rosa Deluca PharmD Unavailable [phone] Name, Joey MERINO Primary Care Provider [phone] Reason for Visit * Reason Onset Date Comments FYI 04/19/2023 Encounter Details Date Type Department Care Team ([facility] st Contact Info) Description 04/19/2023 Telephone [facility] MEDICINE [address] [place], [place] [phone] Emperatriz Stoll FNP [address] [place] [address] FY Social History Tobacco Use Types Packs/Day [...] AM EST Tc from [place] [facility] would like to inform PCP that pt was [place] [facility] [place] for Chest pain, fever and SOB. States they placed a stent, pt was diagnosed with pericarditis. Pt was advised to follow up with Dr. Jones Director Of Flight Operations within 3-4 weeks. Also stated pt will be visited by a community nurse from [facility]. Advised will leave a message as FYI if any questions please contact at [phone] documented in this encounter Plan of Treatment Upcoming Encounters Date Type Department Care Team (Late st Contact Info) Description 08/04/2024 9:30 AM EST Medication Management [facility] MEDICINE [address] [place] [address] Rosa Deluca PharmD [address] [place] [address] 08/25/2024 9:00 AM EDT Clinical Support [facility] MEDICINE [address] [place] [address] Remedios Calderon RN 10/16/2024 10:00 AM EDT Office Visit [facility] ADULT DENTAL [address] [place] [address] Cassi Simms [address] [place] [address] documented as of this encounter Goals Goal [...] documented as of this encounter Care Teams Abattoir Supervisor Relationship Specialty Start Date End Date [place]per[place] [address] PCP - General Family Medicine 07/19/22 02/05/24 Joey Barreto MD [place] [place], [place] [phone] PCP - General Internal Medicine 02/06/24 Rosa Deluca, Martha [address] [place] [address] Pharmacist Internal Medicine 12/03/23 documented as of this encounter
--- OUTSIDE RECORDS SUMMARY | 2024-07-24 09:02 | XMS_ITS | Encounter Summary ---
Author Organization [employer] Address [address] [place] [address] Care Team Providers Care Pump House Technician Name Role Phone Rosa Deluca PharmD Unavailable [phone] Name, Joey MERINO Primary Care Provider [phone] Reason for Visit * Reason Comments Med Refill Patient walked in re questing med refill for tramadol. Patient stated he is due every of every month. Encounter Details Date Type Department Care Team (Late st Contact Info) Description 06/27/2024 Refill [facility] MED [facility] PEDS [address] [place] [address] Name, MD Joey [address] [place] [address] Other chronic pain Social History Tobacco Use [...] Description 08/04/2024 9:30 AM EST Medication Management [facility] MEDICINE [address] [place] [address] Rosa Deluca, PharmD [address] [place] [address] 08/25/2024 9:00 AM EDT Clinical Support [facility] MEDICINE [address] [place] [address] Remedios Calderon, KYLRE 10/16/2024 10:00 AM EDT Office Visit [facility] ADULT DENTAL [address] [place] [address] Cassi Simms [address] [place] [address] documented as of this encounter Goals Goal [...] documented as of this encounter Care Teams Pump House Technician Relationship Specialty Start Date End Date Name, MD Joey [address] [place] [address] PCP - General Internal Medicine 02/06/24 Rosa Deluca PharmD [address] [place] [address] Pharmacist Internal Medicine 12/03/23 documented as of this encounter
--- OUTSIDE RECORDS SUMMARY | 2024-07-24 09:02 | XMS_ITS | Encounter Summary ---
Author Organization [employer] [facility] Address [address] [place] [address] Care Team Providers Care Power Line Lineman Name Role Phone Emperatriz Stoll Primary Care Provider +6 Rosa Deluca PharmD Unavailable [phone] Name, Joey MERINO Primary Care Provider [phone] Encounter Details Date Type Department Care Team ([facility] st Contact Info) Description 10/20/2022 Orders Only [facility] MEDICINE [address] [place] [address] Emperatriz Stoll FNP [address] [place], [place] [phone] Other chronic pain Social History Tobacco Use [...] Description 08/04/2024 9:30 AM EST Medication Management [facility] MEDICINE [address] [place] [address] Rosa Deluca, PharmD [address] [place] [address] 08/25/2024 9:00 AM EDT Clinical Support [facility] MEDICINE [address] [place] [address] Remedios Calderon, KYLER 10/16/2024 10:00 AM EDT Office Visit [facility] ADULT DENTAL [address] [place] [address] Cassi Simms [address] [place] [address] documented as of this encounter Procedures Procedure Name Priority Date/Time Associated Diagnosis Comments XR CHEST 2 VIEWS Routine 11/17/2022 4:30 PM EDT documented in this encounter Results * XR Chest 2 Views (11/17/2022 4:30 PM EDT) Anatomical Region Laterality Modality Chest Radiographic Mony ging 11/17/2022 4:30 PM EDT Narrative 11/24/2022 2:21 PM EDT ?[facility] ?[address] ?[place] [phone] ?XRay Report ? Signed ? Patient: Esdras,Efrain ?MR#: [id number] ? : 1960 ?Acct:[id number] ? Age/Sex: 61 / M ?ADM Date: /16/ ? Loc: HO.HHCX ? Attending Dr: Emperatriz Stoll CLERK ANALYST ? Ordering Physician: Emperatriz Stoll CLERK ANALYST ?? Date of Service: 11/17/22 ?? Procedure(s): XR chest 2V ?? Accession Number(s): [id number] ? cc: Emperatriz Stoll CLERK ANALYST ? EXAMINATION: ?? XR CHEST ? CLINICAL [...] 1418 ? DD/ 1630 ? TD/TT: ? Dye Range Operator Cloth: DAVID ? Procedure Note Robi Dockery - 11/29/2022 [facility] [address] [place] [address] XRay Report Signed Patient: Efrain DewittMR#: [id number] : 1960cct:[id number] Age/Sex: 61 / MADM Date: 11/17/22 Loc: HO.HHCX Attending Dr: Emperatriz Stoll CLERK ANALYST Ordering Physician: Emperatriz Stoll NP Date of Service: 11/17/22 Procedure(s): XR chest 2V Accession Number(s): [id number] cc: Emperatriz Stoll CLERK ANALYST EXAMINATION: XR CHEST CLINICAL INFORMATION: Bilateral lower [...] in OV> 11/24/22 1418 DD/ 1630 TD/TT: Dye Range Operator Cloth: DAVID [facility] External Provider IMG XR PROCEDURES Final Result documented in this encounter Visit Diagnoses Diagnosis Other chronic pain documented in this encounter Additional Health Concerns Assessment Noted Time PHQ-9 Depression Total Score: 7 07/19/19 23 3:07 PM EST documented as of this encounter Care Teams Power Line Lineman Relationship Specialty Start Date End Date Emperatriz Stoll FNP [address] [place] [address] PCP - General Family Medicine 07/19/22 02/05/24 Name, MD Joey [address] [place], [place] [phone] PCP - General Internal Medicine 02/06/24 Rosa Deluca, Martha [address] [place] [address] Pharmacist Internal Medicine 12/03/23 documented as of this encounter
--- OUTSIDE RECORDS SUMMARY | 2024-07-24 09:02 | XMS_ITS | Encounter Summary ---
Author Organization [employer] Address [address] [place] [address] Care Team Providers Care Electronics Engineering Technologist Name Role Phone Rosa Deluca PharmD Unavailable [phone] Name, Joey MERINO Primary Care Provider [phone] Encounter Details Date Type Department Care Team [...] t he electric, gas, oil or water Social Point threatened to shut off services in your [...] Description 08/04/2024 9:30 AM EST Medication Management [facility] MEDICINE [address] [place] [address] Rosa Deluca, DamionD [address] [place] [address] 08/25/2024 9:00 AM EDT Clinical Support [facility] MEDICINE [address] [place] [address] Remedios Calderon RN 10/16/2024 10:00 AM EDT Office Visit [facility] ADULT DENTAL [address] [place] [address] Cassi Simms [address] [place] [address] documented as of this encounter Goals Goal [...] documented as of this encounter Care Teams Electronics Engineering Technologist Relationship Specialty Start Date End Date Name, MD Joey [address] [place] [address] PCP - General Internal Medicine 02/06/24 Rosa Deluca, Martha [address] [place] [address] Pharmacist Internal Medicine 12/03/23 documented as of this encounter
--- OUTSIDE RECORDS SUMMARY | 2024-07-24 09:02 | XMS_ITS | Encounter Summary ---
Author Organization [facility] Address [address] [place] [phone] Phone Care Team Providers Care Embedded Linux Engineer Name Role Phone Name, Joey MERINO Primary Care Provider [phone] Reason for Visit * Reason Comments Chronic Kidney Disease Encounter Details Date Type Department Care Team (Late st Contact Info) Description 07/16/2024 3:15 PM EST Office Visit [facility] [address] [phone] Patricia Fulton ARNP [address] [phone] Chronic kidney disease, stage 4 [...] in setting of DM, HTN Followed by [facility] Cardiology - pending cardiac bypass next [...] No results found for: EGFRAFR eGFR Non-Afr Filipino Date Value Ref Range Status 07/08/2024 31 [...] 1. Chronic kidney disease, stage 4 (severe) ([facility]) 2. Hypertension 3. Renal osteodystrophy 4. Hyperkalemia [...] Department Care Team (Latest Contact Info) Description 08/04/2024 Orders Only [facility] [address] [place] [phone] Kevin Gates MD [address] [facility] [address] [place] [phone] Chronic kidney disease, stage 4 (severe) (HCC); Renal osteodystrophy 01/12/2025 1:15 PM EDT Office Visit [facility] [address] [phone] Kevin Gates MD [address] [address] Scheduled Orders Name Type Priority [...] 9.7 8.7 - 10.7 mg/dL eGFR Non-Afr Filipino 31 07/08/2024 Historical Provider LAB BLOOD ORDERABLES Malena l Result documented in this encounter Visit Diagnoses Diagnosis Chronic kidney disease, stage 4 (severe) (HCC)- Primary Hypertension Renal osteodystrophy Hyperkalemia Chronic kidney disease, stage 4 (severe) (HCC) Renal osteodystrophy documented in this encounter Care Teams Embedded Linux Engineer Relationship Specialty Start Date End Date Name, MD Joey [address] [place] [address] PCP - General Internal Medicine 07/16/24 documented as of this encounter
--- OUTSIDE RECORDS SUMMARY | 2024-07-24 09:02 | XMS_ITS | Encounter Summary ---
Demographics Address [address] [place] [address] [address] [place] [address] Mobile Phone Home Phone Email Address Preferred Language es Marital Status Lutheran Affiliation Unknown Race White Ethnic Group or Author Organization [employer] Address [address] [place] [address] Care Team Providers Care Polisher Numeral Name Role Phone Rosa Deluca PharmD Unavailable [phone] Name, Joey MERINO Primary Care Provider [phone] Encounter Details Date Type Department Care Team ([facility] st Contact Info) Description 07/16/2024 Orders Only [facility] External Provider, [facility] Social History Tobacco Use Types Packs/Day [...] EST Medication Management [facility] [address] [place] [id number] Rosa Deluca PharmD [address] [place] [address] 08/25/2024 9:00 AM EDT Clinical Support [facility] [address] [place] [address] Remedios Calderon RN 10/16/2024 10:00 AM EDT Office Visit [facility] ADULT DENTAL [address] [place] [address] Cassi Simms [address] [place] [address] documented as of this encounter Goals Goal Patient Goal Type Associated Problems Recent Progress Patient-Stated? Author Blood Pressure < 140/90 Blood Pressure 130/64(2024 9:43 AM EST) No Donald Johnson Hemoglobin A1c < 7.5 Result Component 6(07/14/2024 9:46 AM EST) No Donald Johnson documented as of this encounter Procedures Procedure Name Priority Date/Time Associated Diagnosis Comments [facility] US CAROTID ARTERY DUPLEX BILATERAL Routine 07/18/2024 8:03 AM EST [facility] US LOWER EXTREMITY VENOUS DUPLEX BILATERAL Routine 07/16/2024 8:50 AM EST documented in this encounter Results * VASC US Carotid Artery Duplex Bilateral (07/18/2024 8:03 AM EST) 07/18/2024 8:03 AM EST Narrative [facility] IM[facility]ING - 07/18/2024 8:04 AM EST ? [facility] ?[address] ?[place] [address] ? Ultrasound Report ? Signed ? Patient: Esdras,Efrain ?MR#: [id number] ? : 1960 ?Acct:[id number] ? Age/Sex: 63 / M ?ADM Date: 07/17/24 ? Loc: HO.US ? Attending Dr: Demarcus Portillo MD ? Ordering Physician: Demarcus Portillo MD ?? Date of Service: 07/17/24 ?? Procedure(s): US carotid duplex BI ?? Accession Number(s): [id number] ? cc: Emperatriz Stoll NP; Demarcus Portillo [...] left external carotid arteries. There ?? are mzkv-bd-ayegrjqz atheromatous atheromatous plaques proximal left ?? internal carotid artery mild atheromatous plaques left common carotid ?? artery nzdc-rd-roshtrgu atheromatous plaques within the left carotid bulb. [...] DD/ 0803 ? TD/TT: 07/18/24 0803 ? Pointing Machine Operator: ? Procedure Note Nahed, Image - 07/18/[address] [address] Ultrasound Report Signed Patient: Efrain DewittMR#: [id number] : 1Acct:[id number] Age/Sex: 63 / MADM Date: 07/17/24 Loc: HO.US Attending Dr: Demarcus Portillo MD Ordering Physician: Demarcus Portillo MD Date of Service: 07/17/24 Procedure(s): US carotid duplex BI Accession Number(s): [id number] cc: Emperatriz Stoll LOADING INSPECTOR; Demarcus Portillo MD CLINICAL HISTORY: atherosclerosis US [...] and left external carotid arteries. There are ewjc-mi-zywkbrld atheromatous atheromatous plaques proximal left internal carotid artery mild atheromatous plaques left common carotid artery mhqj-xk-fmixwztu atheromatous plaques within the left carotid bulb. [...] 07/18/24 0804 DD/ 0803 TD/TT: 07/18/24 0803 Pointing Machine Operator: us [facility] External Provider CV VASC ULAR PROCEDURES Edited Result - Final [facility] [address] [place] [phone] * VASC US Lower Extremity Venous Duplex Bilateral (07/16/2024 8:50 AM EST) 07/16/2024 8:50 AM EST Narrative [facility] - 07/16/2024 10:13 AM EST ? [facility] ?[address] ?[place] [address] ? Ultrasound Report ? Signed ? Patient: Dewitt,Efrain ?MR#: [id number] ? : 1960 ?Acct:[id number] ? Age/Sex: 63 / M ?ADM Date: 07/16/24 ? Loc: HO.US ? Attending Dr: Demarcus Portillo MD ? Ordering Physician: Demarcus Portillo MD ?? Date of Service: 07/16/24 ?? Procedure(s): US venous duplex LE BI ?? Accession Number(s): [id number] ? cc: Emperatriz Stoll NP; Demarcus Portillo [...] DD/ 0850 ? TD/TT: 07/16/24 0919 ? Pointing Machine Operator: ? Procedure Note Robi Dockery - 07/16/[address] [address] Ultrasound Report Signed Patient: Efrain DewittMR#: [id number] : 1960cct:[id number] Age/Sex: 63 / MADM Date: 07/16/24 Loc: HO.US Attending Dr: Demarcus Portillo MD Ordering Physician: Demarcus Portillo MD Date of Service: 07/16/24 Procedure(s): US venous duplex LE BI Accession Number(s): [id number] cc: Emperatriz Stoll LOADING INSPECTOR; Demarcus Portillo MD EXAMINATION: US LOWER EXTREMITY [...] 07/16/24 1010 DD/ 0850 TD/TT: 07/16/24 0919 Pointing Machine Operator: us [facility] External Provider CV VASC ULAR PROCEDURES Final Result [facility] [address] [place] [address] documented in this encounter Visit Diagnoses Not on filedocumented in this encounter Additional Health Concerns Assessment Noted Time PHQ-9 Depression Total Score: 8 06/06/19 25 11:44 AM EST documented as of this encounter Care Teams Polisher Numeral Relationship Specialty Start Date End Date Name, MD Joey [address] [place] [address] PCP - General Internal Medicine 02/06/24 Rosa Deluca PharmD [address] [place] [address] Pharmacist Internal Medicine 12/03/23 documented as of this encounter
--- OUTSIDE RECORDS SUMMARY | 2024-07-24 09:02 | XMS_ITS | Clinical Summary ---
Author Organization [employer] Address [address] [place] [address] Care Team Providers Care Horse Shoer Name Role Phone Rosa Deluca PharmD Unavailable [phone] Name, Joey MERINO Primary Care Provider [phone] Allergies No known active allergies Medications albuterol [...] 024 2024 Active Lancets (OneTouch Delica Plus Phlste80N) miscIndications: Type 2 diabetes mellitus without complications ([facility]) USE TO TEST BLOOD SUGAR IN THE [...] Continuous Glucose Sensor (FreeStyle Sarina 2 Sensor) [facility] [place] FOUR TIMES DAILY 1 each 11 024 Active BD Pen Needle Danielle U/F 32G X 4 MM miscIndications: Controlled type 2 diabetes mellitus with complication, with long-term current use of insulin ([facility]) USE DIRECTED ONCE DAILY 100 each 1 Active insulin glargine (Lantus SoloStar) 100 UNIT/ML penIndications:C ontrolled type 2 diabetes mellitus with complication, with long-term current use of insulin ([facility]) Inject subcutaneously 22 units once daily Active Semaglutide,0.25 or 0.5MG/DOS, (Ozempic, 0.25 or 0.5 MG/DOSE,) 2 MG/3ML solution pen-injectorIndi cations:Type 2 diabetes mellitus without complication, with long-term current use of insulin ([facility]) INJECT 0.5 MG SUBCUTANEOUSLY EVERY 7 DAYS IN THE ABDOMEN, THIGHS, OR UPPER ARM, ROTATE INJECTION SITES. 3 mL 3 024 Active folic acid (Folvite) 1 MG tabletIndication s:Dietary counseling TAKE 1 TABLET BY MOUTH EVERY MORNING 30 tablet 1 025 Active Farxiga 10 MGIndications:Co ntrolled type 2 diabetes mellitus without complication, unspecified whether chcf insulin use ([facility]) Take 1 tablet (10 mg) by mouth Once per day. 90 tablet 3 025 2025 Active traMADol (Ultram) 50 MG tabletIndication s:Other chronic pain TAKE 1 TABLET BY MOUTH EVERY TWELVE HOURS NEEDED FOR SEVERE PAIN 56 tablet 025 2024 Active gabapentin (Neurontin) 300 MG capsule TAKE 1 CAPSULE BY MOUTH EVERY MORNING 30 capsule 025 Active Ascorbic Acid (vitamin C) 500 MG tablet TAKE 1 TABLET BY MOUTH EVERY MORNING 30 tablet 025 Active Ferrous Sulfate (iron) 325 (65 Fe) MG tablet TAKE 1 TABLET BY MOUTH EVERY MORNING WITH FOOD 30 tablet 025 Active isosorbide mononitrate ER (Imdur) 60 MG 24 hr tablet Take 60 mg by mouth in the morning. 025 Active isosorbide mononitrate ER (Imdur) 30 MG 24 hr tablet Take 30 mg by mouth in the morning. 023 2024 Discontinued(D ose adjustment) traMADol (Ultram) 50 MG tabletIndication s:Other chronic [...] -compressions stockings 20-30 mmHg requested today to [facility] RN -pt has apt w PCP 12/21/2023 [...] Heart failure with normal ejection fraction 0 06/202205/04/2023 Hyperlipidemia 05/04/2023 05/04/2023 Peripheral neuropathy 05/04/2023 [...] Department Care Team Description 07/16/2024 Orders Only [facility] External Provider, [facility] 07/14/2024 9:45 AM EST Office Visit [facility] MEDICINE [address] [place] [address] Joey Barreto MD Coronary arteriosclerosis (Primary Dx); Controlled type 2 diabetes mellitus with complication, with long-term current use of insulin (CMS/HCC) 07/14/2024 Refill [facility] MEDICINE [address] [place] [address] Patricia Thompson DO 07/14/2024 Travel 06/27/2024 Refill [facility] CHC MED & PEDS [address] [place] [address] Joey Barreto MD Other chronic pain 06/24/2024 Travel 06/18/2024 9:30 AM EST Office Visit [facility] OPTOMETRY [address] [place] [address] Nick, Jenniffer, OD 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 associated with type 2 diabetes mellitus, macular edema presence unspecified (CMS/HCC) (Primary Dx); History of panretinal photocoagulation; Epiretinal membrane (ERM) of both eyes; Macular atrophy, retinal; Pseudophakia of both eyes; Presbyopia of both eyes 06/18/2024 Travel 06/16/2024 Refill [facility] MEDIC[facility] [address] [place] [address] Emperatriz Stoll FNP 06/14/2024 Refill [facility] [address] [place] [address] Joey Barreto MD Dietary counseling 06/06/2024 11:30 AM EST Office Visit [address] [address] Joey Barreto MD Coronary arteriosclerosis (Primary Dx); Controlled type 2 diabetes mellitus with complication, with long-term current use of insulin ([facility]) 06/06/2024 Travel 06/05/[address] [address] Monique Esuqivel [place] Chart Prep 06/03/2024 Orders Only GENERIC EXTERNAL DATA DEPARTMENT Provider, Generic External Data 06/02/2024 Orders Only GENERIC EXTERNAL DATA DEPARTMENT Provider, Generic External Data 05/27/2024 9:00 AM EST Clinical Support [address] [address] Remedios Calderon, KYLER Other chronic pain (Primary Dx) 05/27/2024 Travel 05/27/[address] [address] Remedios Calderon, KYLER Recommend SCORING MACHINE OPERATOR Tier 2 05/23/2024 Refill [facility] MED & PEDS [address] [place], [place] [phone] Brea Shahid NP Other chronic pain 05/12/2024 Orders Only GENERIC EXTERNAL DATA DEPARTMENT Provider, Generic External Data 05/12/2024 Travel 05/08/2024 Orders Only [facility] External Provider, [facility] 05/08/2024 Telephone [facility] WALK-IN CENTER [address] [place] [address] Linda Qiu, KYLER [facility] Uro OV notes 05/06/2024 Orders Only GENERIC EXTERNAL DATA DEPARTMENT Provider, Generic External Data 04/29/[address] [address] Joey Barreto MD Med Refill 04/28/[address] [phone] Name, MD Joey Med Refill 04/28/2024 Refill [facility] CHC MED & PEDS [address] [place] [address] Name, MD Joey Other chronic pain from Last 3 Months Immunizations Name Administration [...] 9:30 AM EST Medication Management [facility] MEDICINE [address] [place], [place] [phone] Rosa Deluca, PharmD [address] [place] [address] 08/25/2024 9:00 AM EDT Clinical Support [facility] MEDICINE [address] [place] [address] Remedios Calderon RN 10/16/2024 10:00 AM EDT Office Visit [facility] ADULT DENTAL [address] [place] [address] Cassi Simms [address] [place] [address] Health Maintenance Due Date Last Done Comments CT Colonography 1960 Colonoscopy 1960 Colorectal Cancer Screening 1960 FIT DNA/Cologuard 1960 FIT 1960 FOBT 1960 HIV Screening 1960 Sigmoidoscopy 1960 Hepatitis C Screening 1978 Dental Oral Exam 04/18/2024 10/16/2023, 08/08/2022 Dental Prophylaxis 10/08/2024 04/09/2024, 0 10/16/2023, 08/31/2022 Dental X-Ray: Bitewings 10/16/2024 10/16/2023, 08/08 Diabetes: Hemoglobin A1C 01/11/2025 025, 05/12/2024, 03/07/2024, Additional history exists SDOH [...] Name Priority Date/Time Associated Diagnosis Comments [facility] CAROTID ARTERY DUPLEX BILATERAL Routine 07/18/2024 8:03 AM EST [facility] LOWER EXTREMITY VENOUS DUPLEX BILATERAL Routine 07/16/2024 8:50 AM EST POCT GLYCATED HEMOGLOBIN, TOTAL Routine 07/14/2024 9:46 AM EST Controlled type 2 diabetes mellitus with complication, with long-term current use of insulin ([facility]) POCT GLUCOSE Routine 07/14/2024 9:46 AM EST Controlled type 2 diabetes mellitus with complication, with long-term current use of insulin ([facility]) OCT, RETINA - OU - BOTH EYES Routine 06/18/2024 9:30 AM EST Epiretinal membrane (ERM) of both eyes POCT GLUCOSE Routine 06/06/2024 11:45 AM EST Controlled type 2 diabetes mellitus with complication, with long-term current use of insulin ([facility]) BASIC METABOLIC PANEL Routine 06/03/2024 10:22 AM [...] Relevant to Health Maintenance Results * VASC US Carotid Artery Duplex Bilateral (07/18/2024 8:03 AM EST) 07/18/2024 8:03 AM EST Narrative [facility] - 07/18/2024 8:04 AM EST ? [facility] ?[address] ?[place] [address] ? Ultrasound Report ? Signed ? Patient: Esdras,Efrain ?MR#: [id number] ? : 1960 ?Acct:[id number] ? Age/Sex: 63 / M ?ADM Date: 07/17/24 ? Loc: HO.US ? Attending Dr: Demarcus Portillo MD ? Ordering Physician: Demarcus Portillo MD ?? Date of Service: 07/17/24 ?? Procedure(s): US carotid duplex BI ?? Accession Number(s): [id number] ? cc: Emperatriz Stoll NP; Demarcus Portillo [...] left external carotid arteries. There ?? are bkbt-qw-pyxqpdvg atheromatous atheromatous plaques proximal left ?? internal carotid artery mild atheromatous plaques left common carotid ?? artery vmov-lk-drpgxcdw atheromatous plaques within the left carotid bulb. [...] DD/ 0803 ? TD/TT: 07/18/24 0803 ? Bottom Saw Operator: ? Procedure Note Nahed, Image - 07/18/[address] [address] Ultrasound Report Signed Patient: Efrain DewittMR#: [id number] : 1960cct:[id number] Age/Sex: 63 / MADM Date: 07/17/24 Loc: HO.US Attending Dr: Demarcus Portillo MD Ordering Physician: Demarcus Portillo MD Date of Service: 07/17/24 Procedure(s): US carotid duplex BI Accession Number(s): [id number] cc: Emperatriz Stoll TENNIS NET MAKER; Demarcus Portillo MD CLINICAL HISTORY: atherosclerosis US [...] and left external carotid arteries. There are vpns-rm-rrnnrlpd atheromatous atheromatous plaques proximal left internal carotid artery mild atheromatous plaques left common carotid artery aolj-bu-aepmknbj atheromatous plaques within the left carotid bulb. [...] 07/18/24 0804 DD/ 0803 TD/TT: 07/18/24 0803 Bottom Saw Operator: us [facility] External Provider CV VASC ULAR PROCEDURES Edited Result - Final [facility] [address] [place] [address] * VASC US Lower Extremity Venous Duplex Bilateral (07/16/2024 8:50 AM EST) 07/16/2024 8:50 AM EST Narrative [facility] - 07/16/2024 10:13 AM EST ? [facility] ?[address] ?[place] [address] ? Ultrasound Report ? Signed ? Patient: Dewitt,Efrain ?MR#: [id number] ? : 1960 ?Acct:[id number] ? Age/Sex: 63 / M ?ADM Date: 07/16/24 ? Loc: HO.US ? Attending Dr: Demarcus Portillo MD ? Ordering Physician: Demarcus Portillo MD ?? Date of Service: 07/16/24 ?? Procedure(s): US venous duplex LE BI ?? Accession Number(s): [id number] ? cc: Emperatriz Stoll NP; Demarcus Portillo [...] ?07/16/24 1010 ? DD/ 0850 ? TD/TT: 07/16/2419 ? Bottom Saw Operator: ? Procedure Note Robi Dockery - 07/16/[address] [address] Ultrasound Report Signed Patient: Efrain DewittMR#: [id number] : 1960cct:[id number] Age/Sex: 63 / MADM Date: 07/16/24 Loc: HO.US Attending Dr: Demarcus Portillo MD Ordering Physician: Demarcus Portillo MD Date of Service: 07/16/24 Procedure(s): US venous duplex LE BI Accession Number(s): [id number] cc: Emperatriz Stoll TENNIS NET MAKER; Demarcus Portillo MD EXAMINATION: US LOWER EXTREMITY [...] 07/16/24 1010 DD/ 0850 TD/TT: 07/16/24 0919 Bottom Saw Operator: [facility] External Provider CV VASC ULAR PROCEDURES Final Result [facility] [address] [place] [address] * POCT HGB A1C (07/14/2024 9:46 AM EST) Hemoglobin A1C 6.0 4.0 - 6.0 % QC Media Lot # [id number] Lot# Expiration Date ,026 Blood 07/14/2024 9:46 AM EST Joey Barreto MD POINT OF CARE TEST ENTER/EDIT OR DERABLES Final Result * POCT Glucose (07/14/2024 9:46 AM EST) Only the most recent of2 resultswithin the time period is included. Glucose Blood, POC 67 60 - 200 mg/dL Comment:Fasting QC Media Lot # [id number] Lot# Expiration Date [id number] Blood Capillary blood specimen / Unknown 07/14/2024 [...] Patient already followed by Dr. Abbott at [facility]. He will continue his frequent follow-ups there as scheduled. Will monitor here in 1 year. us Jenniffer Romero OD OPHTH TOMOGRAPHY Final Result * (ABNORMAL) CBC auto differential (06/03/2024 10:22 AM EST) White Blood Count 6.8 4.8 - 10.8 X10*3/uL [facility] Red Blood Count 3.86(L) 4.60 - 5.80 X10*6/uL [facility] Hemoglobin 11.6(L) 14.0 - 18.0 g/dl [facility] Hematocrit 36.5(L) 42.0 - 52.0 % [facility] Mean Corpuscular Volume 94.6 80.0 - 98.0 fL [facility] Mean Corpuscular Hemoglobin 30.1 27.0 - 33.0 pg [facility] Mean Corpuscular HGB Conc 31.8 31.0 - 36.0 g/dl [facility] Red Cell Distribution Width 14.2 11.0 - 16.0 % [facility] Platelet Count 258 160 - 400 X10*3/uL [facility] Mean Platelet Volume 10.0 9.4 - 12.4 fL [facility] Neutrophils Percent Auto 60.2 45 - 73 % [facility] Imm Gran Pct Auto 0.3 0.0 - 0.4 % [facility] Lymphocytes Percent Auto 27.0 20 - 40 % [facility] Monocytes Percent Auto 8.3 2 - 11 % [facility] Eosinophils Percent Auto 3.5 0 - 4 % [facility] Basophils Percent Auto 0.7 0 - 2 % [facility] NRBC Pct Auto 0.0 0.0 - 0.2 /100WBC [facility] Neutrophils Absolute Auto 4.1 2.0 - 8.3 x10*3/uL [facility] Imm Gran Abs Auto 0.02 0.00 - 0.03 X10*3/uL [facility] Lymphocytes Absolute Auto 1.8 1.2 - 4.9 X10*3/uL [facility] Monocytes Absolute Auto 0.6 0.1 - 1.2 X10*3/uL [facility] Eosinophils Absolute Auto 0.2 0.0 - 0.4 X10*3/uL [facility] Basophils Absolute Auto 0.1 0.0 - 0.2 X10*3/uL [facility] NRBC Abs Auto 0.000 0.0 - 0.012 X10*3/uL [facility] 06/03/2024 10:2 2 AM EST 06/03/2024 10:22 AM EST us Generic External Data Provider LAB BLOOD ORDERAB LES Final Result Performing Organization Address City/State/[facility] Co de Phone Number [facility] [address] [place] [phone] * Prothrombin Time-INR (06/03/2024 10:22 AM EST) Prothrombin Time 11.4 10.9 - 12.4 SEC [facility] INTERNATIONAL NORM RATIO 1.0 0.9 - 1.1 [facility] Comment:INTERNATIONAL NORMAL IZED RATIO (INR) [...] ORDERAB LES Final Result Performing Organization Address [facility] Co de Phone Number [facility] [address] [place] [address] [phone] * (ABNORMAL) Basic Metabolic Panel (06/03/2024 10:22 AM EST) Only the most recent of2 resultswithin the time period is included. Sodium 142 135 - 145 mmol/L [facility] Potassium 3.8 3.3 - 5.1 mmol/L [facility] Chloride 112(H) 96 - 108 mmol/L [facility] Carbon Dioxide 20(L) 22 - 29 mmol/L [facility] Anion Gap 14 12 - 20 [facility] Urea Nitrogen (BUN) 24(H) 9 - 16 mg/dL [facility] Creatinine, Serum 1.96(H) 0.5 - 1.4 mg/dL [facility] Estimated Glomerular Filt Rate 35 [facility] Comment:Chronic Kidney Disea se: Estimated GFR < 60 mL/min/1.64f3Rkqjhu Kidney Disease: Estimated GFR < 15 mL/min/1.73m2 Glucose 69 60 - 115 mg/dL [facility] Calcium 8.9 8.4 - 10.2 mg/dL [facility] 06/03/2024 10:2 2 AM EST 06/03/2024 10:22 AM EST us Generic External Data Provider LAB BLOOD ORDERAB LES Final Result Performing Organization Address City/[facility]/ZIP Co de Phone Number [facility] [address] [place] [address] [phone] * (ABNORMAL) Lipid Panel, Standard (06/02/2024 9:33 AM EST) Triglycerides 68 <150 mg/dL [facility] Comment:Desirable Triglyceri de: less than 150 mg/dLBorderline High Triglyceride 150-199 mg/dLHigh Triglyceride: 200-499 mg/dLVery High Triglyceride: greater than or equal to 5OO mg/dL Cholesterol 91 <200 mg/dL [facility] Comment:Desirable Cholestero l: less than 200 mg/dLBorderline High Cholesterol: 200-239 mg/dLHigh Cholesterol: greater than 239 mg/dL LDL Cholesterol Calculated 55 <100 mg/dL [facility] Comment:Desirable LDL: less than 100 mg/dLNear Optimal/Above Optimal LDL: 110- 129 mg/dLBorderline High LDL: 130-159 mg/dLHigh LDL: 160-189 mg/dLVery High LDL: greater than or equal to 190 mg/dL HDL Cholesterol 23(L) >40 mg/dL [facility] Comment:Desirable HDL: great er than 40 mg/dL Note: This HDL assay may give artificially low results in patients with liver disease. 06/02/2024 9:33 AM EST 06/02/2024 9:33 AM EST us Generic External Data Provider LAB BLOOD ORDERAB LES Final Result Performing Organization Address City/State/[facility] Co de Phone Number [facility] [address] [place] [phone] * POCT TRINITY-14 Urine Drug Screen (05/27/2024 8:55 AM EST) Urine Urine specimen obtained by clean catch procedure / Unknown 05/27/2024 8:55 AM EST Narrative Remedios Calderon RN - 05/27/2024 8:55 AM EST UTOX cup Lot#[id number] Exp. 02/26/26 Internal Pass Control Negative for all substances us Joey Name POINT OF CARE TEST ENTER/EDIT OR DERABLES Final Result * Testosterone, Free (Dialysis) And Total, MS (05/12/2024 9:55 AM EST) Testosterone, Total 390 250 - 1100 ng/dL [facility] Comment:Men with clinically significant hypogonadalsymptoms and testosterone values repeatedly inthe range of the 200-300 ng/dL or less, maybenefit from testosterone treatment afteradequate risk and benefits counseling.For additional information, please refer tohttp://[email or web address].Clean Plates/faq/[email or web address](This link is being provided for informational/educational purposes only.)This test was developed and its analytical performancecharacteristics have been determined by [place] It hasnot been cleared or approved by the U.S. Food and DrugAdministration. This assay has been validated pursuantto the CLIA regulations and is used for clinicalpurposes. Testosterone, Free 66.3 35.0 - 155.0 pg/mL [facility] Comment:This test was develo ped and its analytical performancecharacteristics have been determined by [employer] [place], [place]. It hasnot been cleared or approved by the .S. Food and DrugAdministration. This assay has been validated pursuantto the CLIA regulations and is used for clinicalpurposes.THIS TEST WAS PERFORMED AT:[employer]/[facility] [place] [address]JMTCIYQKATIE NOONAN MD,PHD 05/12/2024 9:55 AM EST 05/12/2024 11:39 AM EST Generic External Data Provider LAB BLOOD ORDERAB LES Final Result Performing Organization Address [facility]/ZIP Co de Phone Number [facility] [address] [place] [phone] * PSA,Total (05/12/2024 9:55 AM EST) Prostate Specific Antigen 3.78 <0.05 - 4.0 ng/mL [facility] Comment:PSA methodology: Sadie Weldon i ChemiluminescentMicroparticle Immunoassay (CMIA) 05/12/2024 9:55 AM EST 05/12/2024 11:50 AM EST Generic External Data Provider LAB BLOOD ORDERAB LES Final Result [facility] [address] [place] [address] [phone] * (ABNORMAL) Hemoglobin A1c (05/12/2024 9:55 AM EST) Hemoglobin A1c 6.4(H) <6.0 % [facility] Comment:Hemoglobin A1C Refer ence Range Adults: 4.8 - 6.0 % Non diabetic: < 6.0 % Goal: < 7.0 %Additional Action Suggested: > 8.0 %Note: Hemoglobin A1c results are invalid for patients with abnormal amounts of HbF. Blood transfusions may impact the HbA1c concentration in the patient sample. Estimated Average Glucose 137 mg/dL [facility] Comment:eAG = Estimated ave rage glucose which is %A1C expressed asaverage glucose, using the formula of the N6X-GgvgysfLdvwcxm Glucose study (ADAG), Diabetes Care, Vol.31,#8,2007 05/12/2024 9:55 AM EST 05/12/2024 11:39 AM EST us Generic External Data Provider LAB BLOOD ORDERAB LES Final Result [facility] [address] [place] [address] [phone] * Stress test with myocardial perfusion (05/08/2024 8:01 AM EST) 05/08/2024 8:01 AM EST Narrative [facility] - 05/09/2024 1:22 PM EST ? [facility] ?[address] ?[place] [address] ?Nuclear Medicine Report ? Signed ? Patient: Dewitt,Efrain ?MR#: [id number] ? : 1960 ?Acct:[id number] ? Age/Sex: 63 / M ?ADM Date: 12/05/24 ? Loc: HO.CARD ? Attending Dr: Tl Jones MD ? Ordering Physician: Tl Jones MD ?? Date of Service: 05/08/24 ?? Procedure(s): NM cardiolite stress test ?? Accession Number(s): [id number] ? cc: Emperatriz Stoll TENNIS NET MAKER; Tl Jones MD ? EXERCISE MYOCARDIAL PERFUSION [...] DD/ 0801 ? TD/TT: 05/09/24 1005 ? Bottom Saw Operator: ? Procedure Note Donotuseinterpreter, Image - 05/09/2024 [place] [address] Nuclear Medicine Report Signed Patient: Efrain DewittMR#: [id number] : 1960cct:[id number] Age/Sex: 63 / MADM Date: 05/08/24 Loc: MOISES Attending Dr: Tl Jones MD Ordering Physician: Tl Jones MD Date of Service: 05/08/24 Procedure(s): NM cardiolite stress test Accession Number(s): [id number] cc: Emperatriz Stoll TENNIS NET MAKER; Tl Jones MD EXERCISE MYOCARDIAL PERFUSION STUDY [...] 05/09/24 1319 DD/ 0801 TD/TT: 05/09/24 1005 Bottom Saw Operator: [facility] External Provider CV STRE SS PROCEDURES Edited Result - Final [facility] [address] [place] [address] * Cytopath-cell enhanced (05/06/2024 4:37 PM EST) 05/06/2024 4:37 PM EST 05/07/2024 1:25 PM EST Narrative [facility] - 05/09/2024 9:42 AM EST ----- ------- Name: Efrain Dewitt ? Age/Sex: 63/M ? : 1960 Unit#: [id number] ?? Attend Dr: Elmira Mcdonald-MARYELLEN ?Re05/06/24 ?Status: DEP REF ? Location: .LAB ?Disch: ? ----- ------- SPEC : [id number] ?RECD: 05/07/24-9 ? STATUS: ??SOUT ? REQ NUM: [id number] ? ARPAN: 05/06/24-163 ? SUBM DR: Elmira Mcdonald-MARYELLEN ? ENTERED: ??05/07/24-2076 ?SP TYPE: Cytology ? OTHR : Emperatriz Stoll TENNIS NET MAKER ? ORDERED: ??Cyto-enhanced ? Diagnosis ?? Urine: [...] is prepared. Copies To: ?? Emperatriz Stoll TENNIS NET MAKER ?? [address] ?? [place] [address] ?? [phone] ?? Elmira Mcdonald [facility]- ?? [facility] Urology Services ?? [address] [place] [address] [address] ?? [place] [address] ?? [phone] ?? [email or web address] ------- Signed (signature on file) Jeanmarie Chavez MD 05/09/24 0942 ? ----- ------- ? END OF REPORT ? us Generic External Data Provider LAB CYTOLOGY ORDE RABLES Final Result [facility] [address] [place] [address] [phone] from Last [address] [facility] DENTAL - [facility] Care Teams Horse Shoer Relationship Specialty Start Date End Date Name, MD Joey [address] [place] [address] PCP - General Internal Medicine 02/06/24 Rosa Deluca, DamionD [address] [place] [address] Pharmacist Internal Medicine 12/03/23
--- OUTSIDE RECORDS SUMMARY | 2024-07-24 09:02 | XMS_ITS | Encounter Summary ---
Author Organization [employer] Address [address] [facility] [address] 7t [place] [address] Care Team Providers Care Food Safety Manager Name Role Phone Rosa Deluca PharmD Unavailable [phone] Name, Joey MERINO Primary Care Provider [phone] Encounter Details Date Type Department Care Team [...] t he electric, gas, oil or water [employer] threatened to shut off services in your [...] 9:30 AM EST Medication Management [facility] [address] [place] [address] Rosa Deluca, DamionD 230 [place] [address] 08/25/2024 9:00 AM EDT Clinical Support [facility] [address] [place] [address] Remedios Calderon RN 10/16/2024 10:00 AM EDT Office Visit [facility] ADULT DENTAL [address] [place] [address] Cassi Simms 230 [place] [address] documented as of this encounter Goals Goal [...] documented as of this encounter Care Teams Food Safety Manager Relationship Specialty Start Date End Date Name, MD Joey [address] [place] [address] PCP - General Internal Medicine 02/06/24 Rosa Deluca, Martha [address] [place] [address] Pharmacist Internal Medicine 12/03/23 documented as of this encounter
--- OUTSIDE RECORDS SUMMARY | 2024-07-24 09:02 | XMS_ITS | Patient Health Record ---
Author Organization [facility] Address [address] [facility] [address] [place] [address] Care Team Providers Care Targeteer Name Role Phone FAUZIA (ODETTEMICHELLE) VICENTE MERINO [...] Problem Hyperkalemia (E87.5) Active confirmed H yperkalemia (61331169) Problem Metabolic acidemia (E87.2) Active confirmed Acidosis (11860328) Problem HTN (hypertension) (I10) Active confirmed Hypertension (93333185) Problem CAD (coronary artery disease) (I25.10) Active confirmed Coronary a rtery disease (11603315) Problem Anemia of renal disease (D63.1) Active confirmed Anemia of re nal disease (232000977) Problem DM (diabetes mellitus) (E11.9) Active confirmed DM - Diabe raymundo mellitus (85795508) Problem Diabetic retinopathy (E11.319) Active confirmed Diabetic retino marina (5316684) Problem Hyperphosphatemia (E83.39) Active confirmed Hyperphosphatem ia (51467415) Problem Secondary hyperparathyroidism (N25.81) Active confirmed Secondary hyperparathyroidism (56785147) Problem Vitamin D insufficiency (E55.9) Active confirmed 93556976 Problem Proteinuria (R80.9) Active confirmed Pr oteinuria (08089550) Problem Hyperlipidemia (E78.5) Active confirmed Hyperlipidemia (00753559) Problem Pneumococcal vaccine administered (Z23) Active confirmed Requires vaccination (095947004) Problem CKD stage G3b/A3, GF R 30-44 and albumin creatinine ratio >300 mg/g (N18.32) Active confirmed Chronic kidney disease stage 3B (disorder) (780865577) PLAN OF TREATMENT Pending Test Test Name [...] Insured Coverage Start Date Coverage End Date [facility] [address] [address] [place] [address] [id number] ELAINE FLEMING Self - patient is the insured Medicaid Secondary [address] [place], [place] [id number] ELAINE FLEMING Self - patient is the insured 9 MEDICAL (GENERAL) HISTORY Medical History History ICD Code Hypertension Diabetes High cholesterol Angina Depression Hyperkalemia E87.5 Hypokalemia E87.6 COVID-19 U07.1 Surgical History Surgery Date(Month/Year) Eye Laser Surgery 11/2017 Heart Catherization 11/2017 Heart Catherization w stent placecement 03/2017 Eye surgery 05/2013 cataract surgery , rt 03/2019 Cataract (bilateral) Hospitalization History Reason Date(Month/Year) chest pain @congregational 11/2019
--- OUTSIDE RECORDS SUMMARY | 2024-07-24 09:02 | XMS_ITS | Encounter Summary ---
Author Organization [employer] [facility] Address [address] [facility] [facility] [address] 7t [place] [address] Care Team Providers Care Remarketing Rep Name Role Phone Emperatriz Stoll Primary Care Provider +[phone] Rosa Deluca PharmD Unavailable [phone] Name, Joey MERINO Primary Care Provider [phone] Reason for Visit * Reason Comments Med Refill Encounter Details Date Type Department Care Team ([facility] st Contact Info) Description 01/12/2023 Refill [facility] [address] [place] [address] Emperatriz Stoll FNP [address] [place], [place] [phone] Other chronic pain Social History Tobacco Use [...] Description 08/04/2024 9:30 AM EST Medication Management [facility] [address] [place] [address] Rosa Deluca PharmD 230 [place], [place] 08/25/2024 9:00 AM EDT Clinical Support [facility] [address] [place] [address] Remedios Calderon, RN 10/16/2024 10:00 AM EDT Office Visit [facility] ADULT DENTAL [address] [place] [address] Cassi Simms 230 [place] [address] documented as of this encounter Visit Diagnoses Diagnosis Other chronic pain documented in this encounter Additional Health Concerns Assessment Noted Time PHQ-9 Depression Total Score: 0 12/14/19 23 11:09 AM EDT documented as of this encounter Care Teams Remarketing Rep Relationship Specialty Start Date End Date Emperatriz Stoll FNP [address] [place] [address] PCP - General Family Medicine 07/19/22 02/05/24 Name, MD Joey [address] [place] [address] PCP - General Internal Medicine 02/06/24 Rosa Deluca PharmD [address] [place] [address] Pharmacist Internal Medicine 12/03/23 documented as of this encounter
--- OUTSIDE RECORDS SUMMARY | 2024-07-24 09:02 | XMS_ITS | Encounter Summary ---
Author Organization [employer] Address [address] [facility] [address] 7t [place] [address] Care Team Providers Care Billet Cutter Name Role Phone Rosa Deluca PharmD Unavailable [phone] Name, Joey MERINO Primary Care Provider [phone] Reason for Visit * Reason Comments Med Refill Encounter Details Date Type Department Care Team ([facility] st Contact Info) Description 07/14/2024 Refill [facility] MED[facility]INE [address] [place] [address] Patricia Thompson DO 230 [place] [address] Social History Tobacco Use Types Packs/Day Years [...] 9:30 AM EST Medication Management [facility] MEDICINE [address] [place] [address] Rosa Deluca, PharmD 230 [place] [address] 08/25/2024 9:00 AM EDT Clinical Support [facility] MEDICINE [address] [place] [address] Remedios Calderon RN 10/16/2024 10:00 AM EDT Office Visit [facility] ADULT DENTAL [address] [place] [address] Cassi Simms [address] [place] [address] documented as of this encounter Goals Goal [...] documented as of this encounter Care Teams Billet Cutter Relationship Specialty Start Date End Date Name, MD Joey 230 [place] [address] PCP - General Internal Medicine 02/06/24 Rosa Deluca, Martha 230 [place] [address] Pharmacist Internal Medicine 12/03/23 documented as of this encounter
--- OUTSIDE RECORDS SUMMARY | 2024-07-24 09:02 | XMS_ITS | Encounter Summary ---
Author Organization [employer] Address [address] 7t [place] [address] Care Team Providers Care Machine Packaging Technician Name Role Phone Rosa Deluca PharmD Unavailable [phone] NameJoey MD Primary Care Provider [phone] Reason for Visit * Reason Comments Follow-up Encounter Details Date Type Department Care Team (Latest Contact Info) Description 07/14/2024 9:45 AM EST Office Visit [facility] MED[facility]INE 230 [place] [address] Name, MD Joey 230 [place] [address] Coronary arteriosclerosis (Primary Dx); Controlled type 2 diabetes mellitus with complication, with long-term current use of insulin ([facility]) Social History Tobacco Use Types Packs/Day [...] last month with cardiac ca theterization at [facility] that showed significant CAD. The patient was [...] Continuous Glucose Sensor (FreeStyle Sarina 2 Sensor) [facility] TEST BLOOD SUGAR FOUR TIMES DAILY 1 [...] in the morning. Lancets (OneTouch Delica Plus [id number]) [facility] USE TO TEST BLOOD SUGAR IN THE [...] complication, with long-term current use of insulin ([facility]) Comments: Well-controlled. Continue current medications. He is Ozempic and Farxiga Orders: - POCT Glucose - POCT HGB A1C documented in this encounter Plan of Treatment Upcoming Encounters Date Type Department Care Team (Late st Contact Info) Description 08/04/2024 9:30 AM EST Medication Management [facility] MED[facility]INE [address] [place] [address] Rosa Deluca, Martha [address] [place] [address] 08/25/2024 9:00 AM EDT Clinical Support [facility] [address] [place] [address] Remedios Calderon RN 10/16/2024 10:00 AM EDT Office Visit [facility] ADULT DENTAL [address] [place] [address] Cassi Simms [address] [place] [address] documented as of this encounter Goals Goal [...] complication, with long-term current use of insulin ([facility]) POCT GLUCOSE Routine 07/14/2024 9:46 AM EST Controlled type 2 diabetes mellitus with complication, with long-term current use of insulin ([facility]) documented in this encounter Results * [...] Media Lot # [id number] Lot# Expiration Date 221 Blood Capillary blood specimen / Unknown 07/14/2024 9:46 AM EST Result Fredrick Barreto MD POINT OF CARE TEST ENTER/EDIT OR DERABLES Final Result documented in this encounter Visit Diagnoses Diagnosis Coronary arteriosclerosis- Primary Coronary atherosclerosis of unspecified type of vessel, sauk-suiattle or graft Controlled type 2 diabetes mellitus with complication, with long-term current use of insulin ([facility]) documented in this encounter Additional Health Concerns Assessment Noted Time PHQ-9 Depression Total Score: 8 06/06/19 25 11:44 AM EST documented as of this encounter Care Teams Machine Packaging Technician Relationship Specialty Start Date End Date Name, MD Joey 230 [place] [address] PCP - General Internal Medicine 02/06/24 Rosa Deluca, Martha [address] [place] [address] Pharmacist Internal Medicine 12/03/23 documented as of this encounter
--- OUTSIDE RECORDS SUMMARY | 2024-07-24 09:02 | XMS_ITS | Encounter Summary ---
Author Organization [employer] Address [address] [facility] [address] 7t [place] [address] Care Team Providers Care Window Display Designer Name Role Phone Emperatriz Stoll Primary Care Provider +7 Rosa Deluca PharmD Unavailable [phone] Name, Joey MERINO Primary Care Provider [phone] Reason for Visit * Reason Comments Med Refill Encounter Details Date Type Department Care Team ([facility] st Contact Info) Description 05/01/2023 Refill [facility] 230 [place] [address] Emperatriz Stoll FNP [address] [place], [place] [phone] Primary hypertension Social History Tobacco Use Types [...] Medication Management [facility] [address] [place] [address] Rosa Deluca, PharmD 230 [place] [address] 08/25/2024 9:00 AM EDT Clinical Support [facility] [address] [place] [address] Remedios Calderon RN 10/16/2024 10:00 AM EDT Office Visit [facility] ADULT DENTAL [address] [place] [address] Cassi Simms [address] [place] [address] documented as of this encounter Goals Goal [...] documented as of this encounter Care Teams Window Display Designer Relationship Specialty Start Date End Date Emperatriz Stoll FNP 230 [place] [address] PCP - General Family Medicine 07/19/22 02/05/24 Name, MD Joey 230 [place] [address] PCP - General Internal Medicine 02/06/24 Rosa Deluca, DamionD 230 [place] [address] Pharmacist Internal Medicine 12/03/23 documented as of this encounter
--- OUTSIDE RECORDS SUMMARY | 2024-07-24 09:03 | XMS_ITS | Encounter Summary ---
Author Organization [facility] Address [address] [facility] [address] [place] [address] Phone Care Team Providers Care Chief Meteorologist Name Role Phone Name, Joey MERINO Primary Care Provider [phone] Encounter Details Date Type Department Care Team (Late st Contact Info) Description 07/22/2024 Documentation Only [facility] [address] [place] [address] Anali Neely [place] [address] [facility] [address] [place] [address] Social History Tobacco Use Types Packs/Day Years [...] on file documented as of this encounter Plan of Treatment Upcoming Encounters Date Type Department Care Team (Latest Contact Info) Description 08/04/2024 Orders Only [facility] [address] [place] [address] Kevin Gates MD [address] [address] Chronic kidney disease, stage 4 (severe) (HCC); Renal osteodystrophy 01/12/2025 1:15 PM EDT Office Visit [facility] [address] [facility] [address] [place] [address] Kevin Gates MD [address] [place] [address] documented as of this encounter Procedures Procedure Name Priority Date/Time Associated Diagnosis Comments EXT RESULT ENTRY Routine 07/22/2024 documented in this encounter Results * (ABNORMAL) EXT RESULT ENTRY (07/22/2024) Sodium 142 137 - 147 Potassium 5.2 3.4 - 5.5 Carbon Dioxide 25 mmol/L BUN 29(A) 4 - 21 mg/dL Creatinine 1.82(A) 0.60 - 1.30 mg/dL eGFR Non-Afr Citizen Of The [place] 38 07/22/2024 us Historical Provider LAB BLOOD ORDERABLES Malena l Result documented in this encounter Visit Diagnoses Not on filedocumented in this encounter Care Teams Chief Meteorologist Relationship Specialty Start Date End Date Name, MD Joey [address] [place] [address] PCP - General Internal Medicine 07/16/24 documented as of this encounter
--- OUTSIDE RECORDS SUMMARY | 2024-07-24 09:03 | XMS_ITS | Encounter Summary ---
Author Organization [employer] Address [address] [address] 7t [place] [address] Care Team Providers Care Latex Foam Worker Name Role Phone Emperatriz Stoll Primary Care Provider [phone] Rosa Deluca PharmD Unavailable [phone] Name, Joey MERINO Primary Care Provider [phone] Reason for Visit * Reason Onset Date Comments Med Refill 08/30/2023 Encounter Details Date Type Department Care Team ([facility] st Contact Info) Description 08/30/2023 Telephone [facility] 230 [place], [place] [phone] Emperatriz Stoll FNP [address] [place], [place] [phone] Med Refill Social History Tobacco Use Types [...] 50 MG tablet To be sent to: [facility] - [place], [place] - [address] [place] [address] documented in this encounter Plan of Treatment Upcoming Encounters Date Type Department Care Team ([facility] st Contact Info) Description 08/04/2024 9:30 AM EST Medication Management [facility] MED[facility] [address] [place] [address] Rosa Deluca, PharmD 230 [place] [address] 08/25/2024 9:00 AM EDT Clinical Support [facility] [address] [place] [address] Remedios Calderon RN 10/16/2024 10:00 AM EDT Office Visit [facility] ADULT DENTAL [address] [place] [address] Cassi Simms 230 [place] [address] documented as of this encounter Goals Goal [...] documented as of this encounter Care Teams Latex Foam Worker Relationship Specialty Start Date End Date Emperatriz Stoll FNP 230 [place] [address] PCP - General Family Medicine 07/19/22 02/05/24 Name, MD Joey [address] [place] [address] PCP - General Internal Medicine 02/06/24 Rosa Deluca, DamionD [address] [place] [address] Pharmacist Internal Medicine 12/03/23 documented as of this encounter
--- OUTSIDE RECORDS SUMMARY | 2024-07-24 09:03 | XMS_ITS | Encounter Summary ---
Author Organization [employer] Address [address] [facility] [address] [address] 7t [place] [address] Care Team Providers Care Ticket Broker Name Role Phone Emperatriz Stoll Primary Care Provider [phone] Rosa Deluca PharmD Unavailable [phone] Name, Joey MERINO Primary Care Provider [phone] Reason for Visit * Reason Comments Med Refill Encounter Details Date Type Department Care Team ([facility] st Contact Info) Description 2023 Refill [facility] 230 [place] [address] Emperatriz Stoll FNP [address] [place], [place] [phone] Social History Tobacco Use Types Packs/Day Years [...] Description 08/04/2024 9:30 AM EST Medication Management [facility] [address] [place] [address] Rosa Deluca, DamionD 230 [place] [address] 08/25/2024 9:00 AM EDT Clinical Support [facility] [address] [place] [address] Remedios Calderon RN 10/16/2024 10:00 AM EDT Office Visit [facility] ADULT DENTAL [address] [place] [address] Csasi Simms 230 [place] [address] documented as of this encounter Goals Goal [...] documented as of this encounter Care Teams Ticket Broker Relationship Specialty Start Date End Date Emperatriz Stoll FNP 230 [place] [address] PCP - General Family Medicine 07/19/22 02/05/24 Name, MD Joey 230 [place] [address] PCP - General Internal Medicine 02/06/24 Rosa Deluca, DamionD 230 [place] [address] Pharmacist Internal Medicine 12/03/23 documented as of this encounter
--- OUTSIDE RECORDS SUMMARY | 2024-07-24 09:03 | XMS_ITS | Encounter Summary ---
Author Organization [facility] Address [address] [facility] 200 [place] [address] Phone Care Team Providers Care Sterile Processing Technician Name Role Phone Name, Joey MERINO Primary Care Provider [phone] Encounter Details Date Type Department Care Team (Late st Contact Info) Description 08/09/2022 Telephone [facility] [address] [facility] [address] [place] [phone] Patricia Deras Social History Tobacco Use Types [...] [facility] [address] [place] [address] Kevin Gates MD [address] [phone] Chronic kidney disease, stage 4 (severe) ([facility]); Renal osteodystrophy 01/12/2025 1:15 PM EDT Office Visit [facility] [address] [address] Kevin Gates MD [address] [phone] documented as of this encounter Visit Diagnoses Not on filedocumented in this encounter Care Teams Sterile Processing Technician Relationship Specialty Start Date End Date Name, MD Joey [address] [place] [address] PCP - General Internal Medicine 07/16/24 documented as of this encounter
--- OUTSIDE RECORDS SUMMARY | 2024-07-24 09:03 | XMS_ITS | Clinical Summary ---
Author Organization [facility] Address [address] [address] [place] [address] Phone Care Team Providers Care Pea Viner Mechanic Name Role Phone Name, Joey MERINO Primary Care Provider [phone] Allergies No known active allergies Medications amLODIPine [...] packIndications: Chronic kidney disease, stage 4 (severe) ([facility]),Hypertensi on,Hyperkalemia Take 1 packet by [...] Encounters Date Type Department Care Team Description 07/23/2024 Orders Only [facility] [address] [phone] Patricia Fulton ARNP Chronic kidney disease, stage 4 (severe) (HCC); Hypertension; Hyperkalemia 07/22/2024 Documentation Only [facility] [address] [phone] Anali Neely MA 07/16/2024 3:15 PM EST Office Visit [facility] [address] [address] Patricia Fulton ARNP Chronic kidney disease, stage 4 (severe) (HCC) (Primary Dx); Hypertension; Renal osteodystrophy; Hyperkalemia 05/19/2024 Refill [facility] [address] [place], [place] [address] Kevin Gates MD from Last 3 Months [...] Orders Only [facility] [address] [place] [address] Kevin Gates MD [address] [place] [phone] Chronic kidney disease, stage 4 (severe) (HCC); Renal osteodystrophy 01/12/2025 1:15 PM EDT Office Visit [facility] [address] [address] Kevin Gates MD [facility] [address] [address] Health Maintenance Due Date Last [...] Diagnosis Comments EXT RESULT ENTRY Routine 07/22/2024 EXT RESULT ENTRY Routine 07/08/2024 from Last 3 Months Results * (ABNORMAL) EXT RESULT ENTRY (07/22/2024) Only the most recent of2 resultswithin the time period is included. Sodium 142 137 - 147 Potassium 5.2 3.4 - 5.5 Carbon Dioxide 25 mmol/L BUN 29(A) 4 - 21 mg/dL Creatinine 1.82(A) 0.60 - 1.30 mg/dL eGFR Non-Afr Maur[place] 38 07/22/2024 Historical Provider LAB BLOOD ORDERABLES Malena l Result from Last 3 Months Insurance [facility] ONE CARE DUAL SNP ([id number]) [place] [id number] [facility] ONE CARE DUAL SNP ([id number]) [place] [id number] Care Teams Pea Viner Mechanic Relationship Specialty Start Date End Date Name, MD Joey 230 [place] [address] PCP - General Internal Medicine 07/16/24
--- OUTSIDE RECORDS SUMMARY | 2024-07-24 09:03 | XMS_ITS | Encounter Summary ---
Author Organization [employer] Address [address] [facility] 7t [place] [address] Care Team Providers Care Youth Services Librarian Name Role Phone Emperatriz Stoll Primary Care Provider [phone] Rosa Deluca PharmD Unavailable [phone] Name, Joey MERINO Primary Care Provider [phone] Reason for Referral * Consultation (Routine) - Closed Specialty Diagnoses / Procedures Referred By Justina willis Referred To Contact Nutrition Diagnoses Controlled type 2 diabetes mellitus without complication, with long-term current use of insulin (CMS/HCC) Emperatriz Stoll FNP [address] [place] [address] Phone: tel: fax: Referral ID Status Reason Start Date Expiration Date V isits Requested Visits Authorized [id number] Closed Specialty Services Required 11/06/2023 11/05/2024 1 1 Encounter Details Date Type Department Care Team (Late st Contact Info) Description 11/06/2023 Orders Only [facility] [address] [place] [address] Emperatriz Stoll FNP [address] [place] [address] Controlled type 2 diabetes mellitus without complication, [...] EST Medication Management [facility] [address] [place] [address] Rosa Deluca, PharmD 230 [place] [address] 08/25/2024 9:00 AM EDT Clinical Support [facility] [address] [place] [address] Remedios Calderon, KYLER 10/16/2024 10:00 AM EDT Office Visit [facility] ADULT D[facility]AL [address] [place] [address] Cassi Simms 230 [place] [address] Scheduled Referrals Name Type Priority Associated Diagnoses [...] documented as of this encounter Care Teams Youth Services Librarian Relationship Specialty Start Date End Date Emperatriz Stoll FNP [address] [place] [address] PCP - General Family Medicine 07/19/22 02/05/24 Joey Barreto MD 230 [place] [address] PCP - General Internal Medicine 02/06/24 Rosa Deluca PharmD [address] [place] [address] Pharmacist Internal Medicine 12/03/23 documented as of this encounter
--- OUTSIDE RECORDS SUMMARY | 2024-07-24 09:03 | XMS_ITS | Patient Health Record ---
Author Organization [facility] Address [address] [address] Care Team Providers Care Art Teacher Name Role Phone Data, Migration. Unavailable [phone] Reason For Referral No Information Medications Medication [...] Status W/U Status Risk Notes Problem Heartburn (62976010) Heartburn (R12) 08/18/19 18 Active confirmed [id number]-[id number] rn Problem Acid reflux (234191187) Acid reflux (K21.9) 08/18/19 18 Active confirmed LJ215-Hxzm reflux Problem Epigastric pain (69716009) Abdominal Pain Epigastric (R10.13) 08/18/19 18 Active confirmed UD897-Lbvlqwi al Pain Epigastric Problem Flatulence, eructation and gas pain (676829946) Bloating /gas symptom (R14.0) 08/18/19 18 Active confirmed KS934-Zythwxz g /gas symptom Plan Of Treatment No Information Medical (General) History Surgical History Surgery Date(Month/Year) Eye Surgery (Right) 2017 catheterization 2017 Stent (1) 2016
--- OUTSIDE RECORDS SUMMARY | 2024-07-24 09:03 | XMS_ITS | Encounter Summary ---
Author Organization [facility] Address [address] 7[address] [place] [address] Care Team Providers Care Sound Equipment Mechanic Name Role Phone Emperatriz Stoll Primary Care Provider +2 Rosa Deluca PharmD Unavailable [phone] Name, Joey MERINO Primary Care Provider [phone] Encounter Details Date Type Department Care Team (Late Contact Info) Description 08/21/2022 Orders Only [facility] MEDICINE [address] [place] [address] Emperatriz Stoll FNP [address] [place], [place] [id number] Social History Tobacco Use Types Packs/Day Years [...] Description 08/04/2024 9:30 AM EST Medication Management [facility] MEDICINE [address] [place] [address] Rosa Deluca PharmD [address] [place] [address] 08/25/2024 9:00 AM EDT Clinical Support [facility] MEDICINE [address] [place] [address] Remedios Calderon, KYLER 10/16/2024 10:00 AM EDT Office Visit [facility] ADULT DENTAL [address] [place] [address] Cassi Simms [address] [place] [address] documented as of this encounter Visit Diagnoses Not on filedocumented in this encounter Additional Health Concerns Assessment Noted Time PHQ-9 Depression Total Score: 7 07/19/19 23 3:07 PM EST documented as of this encounter Care Teams Sound Equipment Mechanic Relationship Specialty Start Date End Date Emperatriz Stoll FNP [address] [place] [address] PCP - General Family Medicine 07/19/22 02/05/24 Joey Barreto MD [address] [place] [address] PCP - General Internal Medicine 02/06/24 Rosa Deluca PharmD [address] [place] [address] Pharmacist Internal Medicine 12/03/23 documented as of this encounter
--- OUTSIDE RECORDS SUMMARY | 2024-07-24 09:03 | XMS_ITS | Encounter Summary ---
Author Organization [facility] Address [address] [address] Phone Care Team Providers Care Roof Truss Machine Tender Name Role Phone Name, Joey MERINO Primary Care Provider [phone] Encounter Details Date Type Department Care Team (Late st Contact Info) Description 07/23/2024 Orders Only [facility] [address] [place] [phone] Patricia Fulton ARNP [address] [address] Chronic kidney disease, stage 4 (severe) (HCC); Hypertension; Hyperkalemia Social History Tobacco Use Types Packs/Day [...] Only [facility] [address] [place] [address] Kevin Gates MD [address] [address] Chronic kidney disease, stage 4 (severe) (HCC); Renal osteodystrophy 01/12/2025 1:15 PM EDT Office Visit [facility] [address] [address] Kevin Gates MD [address] [phone] documented as of this encounter Visit Diagnoses Diagnosis Chronic kidney disease, stage 4 (severe) (HCC) Hypertension Hyperkalemia Chronic kidney disease, stage 4 (severe) (HCC) Renal osteodystrophy documented in this encounter Care Teams Roof Truss Machine Tender Relationship Specialty Start Date End Date Name, MD Joey [address] [place] [address] PCP - General Internal Medicine 07/16/24 documented as of this encounter
== END 2024-07-24 09:03 | disposition home or self-care (01) ==
PROVIDERS: PCP Nurse Practitioner Family; Visit Provider Nurse Practitioner Family
DX: I25.10 Atherosclerotic heart disease of native coronary artery without angina pectoris (principal); Z98.890 Other specified postprocedural states; Z95.5 Presence of coronary angioplasty implant and graft; R94.39 Abnormal result of other cardiovascular function study; I10 Essential (primary) hypertension; I42.9 Cardiomyopathy, unspecified
CPT/HCPCS: 99214; G2211

== ENCOUNTER → 2024-07-24 08:36 | Outpatient (BNVA) | payer OTHER, SELFPAY | PROVIDERS: PCP Nurse Practitioner Family; Visit Provider Nurse Practitioner Family | DX: I25.10 Atherosclerotic heart disease of native coronary artery without angina pectoris (principal); I10 Essential (primary) hypertension; I42.9 Cardiomyopathy, unspecified; R94.39 Abnormal result of other cardiovascular function study; Z98.890 Other specified postprocedural states; Z95.5 Presence of coronary angioplasty implant and graft | CPT/HCPCS: 99212 ==

== ENCOUNTER 2024-08-04 08:17 | Outpatient (AMB) | payer OTHER, SELFPAY ==
--- NOTE | 2024-08-04 08:18 | A.OFFVIS_ITS ---
Intake Visit Reasons: 3m follow up erectile dysfunction Intake Note: Patient presents for follow up visit on: erectile dysfunction Urology Medications: tadalafil Blood Thinner: none Trashman Required: Yes Trashman Services: Trashman Present Trashman Name: [id number] Accompanied by: Self / Same As Patient Allergies No Known Allergies Allergy (Verified 08/04/24 09:07) Medication List - Last Reconciled 08/04/24 by EDGARDO Chaudhry ascorbic acid (vitamin C) (Vitamin C) 500 mg PO DAILY aspirin (Pilar Low Dose Aspirin) 81 mg PO DAILY atorvastatin 80 mg PO DAILY 90 days blood sugar diagnostic (jigl Ultra Test strips) As directed carvedilol 12.5 mg PO BID dapagliflozin propanediol (Farxiga) 10 mg PO DAILY 30 days ezetimibe (Zetia) 10 mg PO DAILY folic acid 1 mg PO DAILY gabapentin 300 mg PO BID insulin glargine (Lantus Solostar U-100 Insulin) units subcut isosorbide mononitrate ER 60 mg PO DAILY sacubitril-valsartan 24-26 mg (Entresto) 1 tab PO BID tramadol 50 mg PO Q8H PRN HPI Comments Details: Efrain is a 63-year-old Sammarinese-speaking male patient of . He has a past medical history of acute coronary syndrome, diabetic retinopathy, diabetes, hypertension, chronic kidney disease, and smoker. He presents to the office today for follow-up of his erectile dysfunction. In discussion with the patient today discusses upcoming cardiac procedure on August 15. He had previously been on low-dose Cialis however this has since been discontinued as patient has been following up with cardiology and is scheduled to undergo cardiac surgery. He does continue to report erectile dysfunction however verbalizes understanding that cardiac issue is paramount at this time. Lbas are as follows: Testosterone 05/27 390 PSA 05/27 3.8 A1c 05/27 6.4 He discusses his longstanding history of erectile dysfunction for over 7-10 years. He reports he is able to obtain an erection however not adequate for penetration. He otherwise denies any bothersome urinary issues. He denies any previous trauma and or surgical history in the area. He denies urinary urgency, urinary frequency, incontinence, nocturia, hematuria, dysuria, foul smelling urine, changes to urinary stream, flank pain, fever, and or chills. He is happy with his current voiding parameters. In office urinalysis results reviewed with the patient today. We discussed at length potential causes of erectile dysfunction as well as further treatment options and risks and benefits of these treatment options. We discussed lifestyle modifications to assist with ED. He does report walking daily and goes to the gym anywhere between 1-3 times per week. He otherwise denies any other issues or concerns at this time. PFS Medical History ACS (acute coronary syndrome) Diabetic retinopathy Diabetes Hypertension CKD (chronic kidney disease) Exertional chest pain Smoker Surgical History Stented coronary artery Hx of cardiac catheterization Family History Mother No problems noted. Father No problems noted. Social History e-Cigarette/Vaping Use: Never Used Current occupational status: unemployed Cognitive needs: No Hearing needs: No Vision needs: Yes (wears glasses) Review of Systems Const Reports no additional complaints Eyes Reports as per HPI ENT Reports no additional complaints Card Reports as per HPI Resp Reports no additional complaints GI Reports no additional complaints Reports as per HPI Musc Reports no additional complaints Neuro Reports no additional complaints Psych Reports no additional complaints Endo Reports as per HPI Physical Exam Const General: cooperative, healthy appearing, comfortable, no acute distress, well developed, alert and awake Orientation/consciousness: patient oriented x3 Limitations: no limitations HEENT Head: Yes normal to inspection, Yes normocephalic and Yes atraumatic Ears: hearing grossly normal bilaterally Eyes General: appearance normal, both eyes and all related structures Neck Neck: Yes normal visual inspection and Yes trachea midline Chest Chest palpation & inspection: normal inspection of the chest Resp Effort & Inspection: normal respiratory effort and able to speak in complete sentences Cardio Rate: regular rate GI Inspection: Yes normal to inspection General: Yes no CVA tenderness Back/Spine/Pelvis Back: no CVA tenderness Skin General skin exam: no rashes or lesions noted Neuro General: patient oriented x3 Extrem General: Yes normal to inspection Psych Appearance: grossly normal and well kempt Mental Status: mental status grossly normal Speech and movement: Normal speech and movement present and Clear speech present Affect: normal affect Attitude: cooperative Thought process: Normal thought process present Thought content: Normal thought content present Insight: Fair insight present (Psych) Judgement: Fair judgement present (Psych) Results AMB Urinalysis, Automated UA Leukoctes 0 Emerson/uL Last Edit by Ara Colmenares on 08/04/24 08:43 UA Nitrite Negative Last Edit by Ara Colmenares on 08/04/24 08:43 UA Urobilinogen 0.2 mg/dL Last Edit by Ara Colmenares on 08/04/24 08:43 UA Protein 15 mg/dL Last Edit by Ara Colmenares on 08/04/24 08:43 UA pH 5.5 Last Edit by Ara Colmenares on 08/04/24 08:43 UA Blood 10 Gabriel/uL Last Edit by Ara Colmenares on 08/04/24 08:43 UA Specific Sel[place] 1.015 Last Edit by Ara Colmenares on 08/04/24 08:43 UA Ketone Negative Last Edit by Ara Colmenares on 08/04/24 08:43 UA Bilirubin 0 mg/dL Last Edit by Ara Colmenares on 08/04/24 08:43 UA Glucose 1000 mg/dL Last Edit by Ara Colmenares on 08/04/24 08:43 Results Reviewed Results Reviewed: Laboratory Last Values Urine pH (Auto) 5.5 08/04/24 08:39 Specific [place] (Auto) 1.015 08/04/24 08:39 Urine Protein (Auto) 15 mg/dL 08/04/24 08:39 Glucose (UA)(Auto) 1000 mg/dL 08/04/24 08:39 Urine Ketones (Auto) Negative 08/04/24 08:39 Urine Blood (Auto) 10 Gabriel/uL 08/04/24 08:39 Urine Nitrite (Auto) Negative 08/04/24 08:39 Urine Bilirubin (Auto) 0 mg/dL 08/04/24 08:39 Urine Urobilinogen (Auto) 0.2 mg/dL 03/03/25 08:39 Leukocyte Esterase (Auto) 0 Emerson/uL 08/04/24 08:39 Assessment & Plan Assessment & Plan (1) Erectile dysfunction associated with type 2 diabetes mellitus: Code(s): E11.69 - Type 2 diabetes mellitus with other specified complication; N52.1 - Erectile dysfunction due to diseases classified elsewhere Category: Medical Plan In office urinalysis results reviewed with the patient today; as noted above. We discussed at length potential causes of erectile dysfunction as well as further treatment options and risks and benefits of these treatment options. Discussed following up with cardiology regarding p.o. treatment options for erectile dysfunction. All questions were answered. Discussed lifestyle modifications to assist with erectile dysfunction. Patient currently denies any bothersome urinary issues or concerns. He reports be happy with current voiding parameters. Will obtain PSA Follow-up in 6 months with PSA; or sooner with any issues, concerns, and or questions. Orders: Orders AMB Urinalysis Automated Today Z13.9 - Encounter for screening, unspecified Prostate Specific Antigen Today E11.69 - Type 2 diabetes mellitus with other specified complication, N52.1 - Erectile dysfunction due to diseases classified elsewhere Hemoglobin A1c Today E11.9 - Type 2 diabetes mellitus without complications Patient Instructions: The patient had an opportunity to ask questions regarding the treatment plan. All questions were answered. Physical exam, labs, and imaging were discussed and reviewed in detail. As well as risks, benefits, and discussion of treatment choices. No major barriers to understanding were identified. The patient expressed understanding and agreement with the above treatment plan. The patient was made aware they should contact our office by phone for worsening of their current condition, the appearance of new symptoms, or with any questions or concerns. Compliance is encouraged with any medications and follow up testing that is ordered. It is a privilege to be allowed the opportunity to participate in? your urological care.? Again, if you have any questions or concerns If you have any questions or concerns please do not hesitate to contact me. The office is [phone]. This note is constructed using voice recognition software. While every effort has been made to ensure accuracy heating and ventilation engineer errors may have been included. Yours sincerely, EDGARDO Chaudhry Coding Level of Care Code Est Pt Level 3 (74329) Complex EM visit Add On G2211 Diagnoses Erectile dysfunction associated with type 2 diabetes mellitus E11.69; N52.1
--- OUTSIDE RECORDS SUMMARY | 2024-08-04 08:27 | XMS_ITS | Encounter Summary ---
Author Organization [employer] Address [address] 7[address] [place] [address] Care Team Providers Care Paste Plant Supervisor Name Role Phone Rosa Deluca PharmD Unavailable [phone] Name, Joey MERINO Primary Care Provider [phone] Reason for Visit * Reason Onset Date Comments Med Refill 07/29/2024 Encounter Details Date Type Department Care Team (Late st Contact Info) Description 07/29/2024 Refill [facility] MED & PEDS [address] [place] [address] Name, MD Joey [address] [place] [address] Other chronic pain Social History Tobacco Use [...] as of this encounter Miscellaneous Notes * Addendum Note - Sinan Calderon RN - 07/30/2024 11:53 AM ESTAddended by: SINAN CALDERON on: 07/30/2024 11:53 AM Modules accepted: Orders * Telephone Encounter - Charisma Olivares LPN - 07/29/2024 3:02 PM EST Received request on traMADol (Ultram) 50 MG tablet documented in this encounter Plan of Treatment Upcoming Encounters Date Type Department Care Team (Late st Contact Info) Description 08/06/2024 9:30 AM EST Medication Management [facility] MEDICINE [address] [place] [address] Rosa Deluca, PharmD [address] [place] [address] 08/25/2024 9:00 AM EDT Clinical Support [facility] MEDICINE [address] [place] [address] Sinan Calderon RN 10/16/2024 10:00 AM EDT Office Visit [facility] ADULT DENTAL [address] [place] [address] Mendez, Cassi [address] [place] [address] documented as of this encounter Goals Goal [...] documented as of this encounter Care Teams Paste Plant Supervisor Relationship Specialty Start Date End Date Name, MD Joey [address] [place] [address] PCP - General Internal Medicine 02/06/24 Rosa Deluca PharmD [address] [place] [address] Pharmacist Internal Medicine 12/03/23 documented as of this encounter
--- OUTSIDE RECORDS SUMMARY | 2024-08-04 08:27 | XMS_ITS | Encounter Summary ---
Author Organization [employer] Address [address] 7t [place] [address] Care Team Providers Care Alteration Inspector Name Role Phone Emperatriz Stoll Primary Care Provider [phone] Rosa Deluca PharmD Unavailable [phone] Name, Joey MERINO Primary Care Provider [phone] Encounter Details Date Type Department Care Team (Late st Contact Info) Description 04/06/2023 Orders Only [facility] MED & PEDS [address] [place] [address] Emperatriz Stoll FNP [address] [place] [address] Social History Tobacco Use Types Packs/Day Years [...] Description 08/06/2024 9:30 AM EST Medication Management [facility] MEDICINE [address] [place] [address] Rosa Deluca PharmD [address] [place] [address] 08/25/2024 9:00 AM EDT Clinical Support [facility] MEDICINE [address] [place] [address] Remedios Calderon RN 10/16/2024 10:00 AM EDT Office Visit [facility] ADULT DENTAL [address] [place] [address] Cassi Simms [address] [place] [address] documented as of this encounter Goals Goal [...] documented as of this encounter Care Teams Alteration Inspector Relationship Specialty Start Date End Date Emperatriz Stoll FNP [address] [place] [address] PCP - General Family Medicine 07/19/22 02/05/24 Joey Barreto MD [address] [place], [place] [phone] PCP - General Internal Medicine 02/06/24 Rosa Deluca, DamionD [address] [place] [address] Pharmacist Internal Medicine 12/03/23 documented as of this encounter
--- OUTSIDE RECORDS SUMMARY | 2024-08-04 08:27 | XMS_ITS | Encounter Summary ---
Author Organization [employer] Address [address] 7[address] [place] [address] Care Team Providers Care Septic Pump Truck Driver Name Role Phone Rosa Deluca PharmD Unavailable [phone] Name, Joey MERINO Primary Care Provider [phone] Encounter Details Date Type Department Care Team [...] t he electric, gas, oil or water [employer] threatened to shut off services in your [...] Description 08/06/2024 9:30 AM EST Medication Management [facility] MEDICINE [address] [place] [address] Rosa Deluca, DamionD [address] [place] [address] 08/25/2024 9:00 AM EDT Clinical Support [facility] MEDICINE [address] [place] [address] Remedios Calderon RN 10/16/2024 10:00 AM EDT Office Visit [facility] ADULT DENTAL [address] [place] [address] Cassi Simms [address] [place] [address] documented as of this encounter Goals Goal [...] documented as of this encounter Care Teams Septic Pump Truck Driver Relationship Specialty Start Date End Date Name, MD Joey [address] [place] [address] PCP - General Internal Medicine 02/06/24 Rosa Deluca, Martha [address] [place] [address] Pharmacist Internal Medicine 12/03/23 documented as of this encounter
--- OUTSIDE RECORDS SUMMARY | 2024-08-04 08:27 | XMS_ITS | Encounter Summary ---
Author Organization [employer] Address [address] [facility] [address] 7[address] [place] [address] Care Team Providers Care Professional Development Manager Name Role Phone Rosa Deluca PharmD Unavailable [phone] NameJoey MD Primary Care Provider [phone] Reason for Visit * Reason Comments Follow-up Encounter Details Date Type Department Care Team (Latest Contact Info) Description 07/14/2024 9:45 AM EST Office Visit [facility] MEDICINE [address] [place] [address] Name, MD Joey [address] [place] [address] Coronary arteriosclerosis (Primary Dx); Controlled type 2 diabetes mellitus with complication, with long-term current use of insulin ([facility]) Social History Tobacco Use Types [...] last month with cardiac ca theterization at [facility] that showed significant CAD. The patient [...] Continuous Glucose Sensor (FreeStyle Sarina 2 Sensor) [facility] TEST BLOOD SUGAR FOUR TIMES DAILY 1 [...] in the morning. Lancets (OneTouch Delica Plus [id number]) [facility] USE TO TEST BLOOD SUGAR IN THE [...] complication, with long-term current use of insulin ([facility]) Comments: Well-controlled. Continue current medications. He is Ozempic and Farxiga Orders: - POCT Glucose - POCT HGB A1C documented in this encounter Plan of Treatment Upcoming Encounters Date Type Department Care Team (Late st Contact Info) Description 08/06/2024 9:30 AM EST Medication Management [facility] MEDICINE [address] [place] [address] Rosa Deluca, Martha [address] [place] [address] 08/25/2024 9:00 AM EDT Clinical Support [facility] MEDICINE [address] [place] [address] Remedios Calderon RN 10/16/2024 10:00 AM EDT Office Visit [facility] ADULT DENTAL [address] [place] [address] Cassi Simms [address] [place] [address] documented as of this encounter Goals Goal [...] complication, with long-term current use of insulin ([facility]) POCT GLUCOSE Routine 07/14/2024 9:46 AM EST Controlled type 2 diabetes mellitus with complication, with long-term current use of insulin ([facility]) documented in this encounter Results [...] Media Lot # [id number] Lot# Expiration Date 429 Blood Capillary blood specimen / Unknown 07/14/2024 9:46 AM EST Result Fredrick Barreto MD POINT OF CARE TEST ENTER/EDIT OR DERABLES Final Result documented in this encounter Visit Diagnoses Diagnosis Coronary arteriosclerosis- Primary Coronary atherosclerosis of unspecified type of vessel, [place] or graft Controlled type 2 diabetes mellitus with complication, with long-term current use of insulin ([facility]) documented in this encounter Additional Health Concerns Assessment Noted Time PHQ-9 Depression Total Score: 8 06/06/19 25 11:44 AM EST documented as of this encounter Care Teams Professional Development Manager Relationship Specialty Start Date End Date Name, MD Joey [address] [place] [address] PCP - General Internal Medicine 02/06/24 Rosa Deluca, Martha [address] [place] [address] Pharmacist Internal Medicine 12/03/23 documented as of this encounter
--- OUTSIDE RECORDS SUMMARY | 2024-08-04 08:27 | XMS_ITS | Encounter Summary ---
Author Organization [employer] Address [address] [facility] [address] [facility] [place] [address] Care Team Providers Care Cloth Mender Name Role Phone Rosa Deluca PharmD Unavailable [phone] Name, Joey MERINO Primary Care Provider [phone] Reason for Visit * Reason Comments Med Refill Encounter Details Date Type Department Care Team ([facility] st Contact Info) Description 07/14/2024 Refill [facility] MEDICINE [address] [place] [address] Patricia Thompson DO [address] [place] [address] Social History Tobacco Use Types Packs/Day Years [...] Description 08/06/2024 9:30 AM EST Medication Management [facility] MEDICINE [address] [place] [address] Rosa Deluca, PharmD [address] [place] [address] 08/25/2024 9:00 AM EDT Clinical Support [facility] MEDICINE [address] [place] [address] Remedios Calderon RN 10/16/2024 10:00 AM EDT Office Visit [facility] ADULT DENTAL [address] [place] [address] Cassi Simms [address] [place] [address] documented as of this encounter Goals Goal [...] documented as of this encounter Care Teams Cloth Mender Relationship Specialty Start Date End Date Name, MD Joey [address] [place] [address] PCP - General Internal Medicine 02/06/24 Rosa Deluca, Martha [address] [place] [address] Pharmacist Internal Medicine 12/03/23 documented as of this encounter
--- OUTSIDE RECORDS SUMMARY | 2024-08-04 08:28 | XMS_ITS | Patient Health Record ---
Author Organization [facility] Address [address] [facility] [address] [place] [address] Care Team Providers Care Adjunct Nursing Faculty Name Role Phone FAUZIA (ODETTEMICHELLE) VICENTE MERINO Primary Care Provider Unavailable Sheldon Pierre Unavailable [phone] ALLERGIES No Known Allergies REASON FOR REFERRAL [...] Problem Hyperkalemia (E87.5) Active confirmed H yperkalemia (94966855) Problem Metabolic acidemia (E87.2) Active confirmed Acidosis (61122081) Problem HTN (hypertension) (I10) Active confirmed Hypertension (84016030) Problem CAD (coronary artery disease) (I25.10) Active confirmed Coronary a rtery disease (13064569) Problem Anemia of renal disease (D63.1) Active confirmed Anemia of re nal disease (908328166) Problem DM (diabetes mellitus) (E11.9) Active confirmed DM - Diabe raymundo mellitus (05227241) Problem Diabetic retinopathy (E11.319) Active confirmed Diabetic retino marina (4736563) Problem Hyperphosphatemia (E83.39) Active confirmed Hyperphosphatem ia (56137769) Problem Secondary hyperparathyroidism (N25.81) Active confirmed Secondary hyperparathyroidism (52985295) Problem Vitamin D insufficiency (E55.9) Active confirmed 20923968 Problem Proteinuria (R80.9) Active confirmed Pr oteinuria (51704841) Problem Hyperlipidemia (E78.5) Active confirmed Hyperlipidemia (69787434) Problem Pneumococcal vaccine administered (Z23) Active confirmed Requires vaccination (505847357) Problem CKD stage G3b/A3, GF R 30-44 and albumin creatinine ratio >300 mg/g (N18.32) Active confirmed Chronic kidney disease stage 3B (disorder) (055600928) PLAN OF TREATMENT Pending Test Test Name [...] Insured Coverage Start Date Coverage End Date [facility] [address] [address] [place] [address] [id number] ELAINE FLEMING Self - patient is the insured Medicaid Secondary [address] [place], [place] [id number] ELAINE FLEMING Self - patient is the insured 9 MEDICAL (GENERAL) HISTORY Medical History History ICD Code Hypertension Diabetes High cholesterol Angina Depression Hyperkalemia E87.5 Hypokalemia E87.6 COVID-19 U07.1 Surgical History Surgery Date(Month/Year) Eye Laser Surgery 11/2017 Heart Catherization 11/2017 Heart Catherization w stent placecement 03/2017 Eye surgery 05/2013 cataract surgery , rt 03/2019 Cataract (bilateral) Hospitalization History Reason Date(Month/Year) chest pain @catholic 11/2019
--- OUTSIDE RECORDS SUMMARY | 2024-08-04 08:28 | XMS_ITS | Encounter Summary ---
Author Organization [employer] Address [address] [place] [address] Care Team Providers Care Japanese Interpreter Name Role Phone Emperatriz Stoll Primary Care Provider [phone] Rosa Deluca PharmD Unavailable [phone] Name, Joey MERINO Primary Care Provider [phone] Reason for Visit * Reason Comments Med Refill Encounter Details Date Type Department Care Team ([facility] st Contact Info) Description 05/01/[address] [facility] [address] [place] [address] Emperatriz Stoll FNP [address] [place], [place] [phone] Primary hypertension Social History Tobacco Use Types [...] Description 08/06/2024 9:30 AM EST Medication Management [facility] [address] [place] [address] Rosa Deluca, PharmD [address] [place] [address] 08/25/2024 9:00 AM EDT Clinical Support [facility] [address] [place] [address] Remedios Calderon RN 10/16/2024 10:00 AM EDT Office Visit [facility] ADULT DENTAL [address] [place] [address] Cassi Simms [address] [place] [address] documented as of this encounter Goals Goal [...] documented as of this encounter Care Teams Japanese Interpreter Relationship Specialty Start Date End Date Emperatriz Stoll FNP [address] [place] [address] PCP - General Family Medicine 07/19/22 02/05/24 Name, MD Joey [address] [place] [address] PCP - General Internal Medicine 02/06/24 Rosa Deluca, DamionD [address] [place] [address] Pharmacist Internal Medicine 12/03/23 documented as of this encounter
--- OUTSIDE RECORDS SUMMARY | 2024-08-04 08:28 | XMS_ITS | Encounter Summary ---
Author Organization [facility] Address [address] [place] [phone] Phone Care Team Providers Care Engineering Supplies Sales Name Role Phone Name, Joey MERINO Primary Care Provider [phone] Reason for Visit * Reason Comments Chronic Kidney Disease Encounter Details Date Type Department Care Team (Late st Contact Info) Description 07/16/2024 3:15 PM EST Office Visit [facility] [address] [address] Patricia Fulton ARNP [address] [address] Chronic kidney disease, stage 4 [...] in setting of DM, HTN Followed by [facility] - pending cardiac bypass next week [...] No results found for: EGFRAFR eGFR Non-Afr Trinidadian Date Value Ref Range Status 07/08/2024 31 [...] Care Team (Late st Contact Info) Description 08/12/2024 4:30 PM EDT Office Visit [facility] [address] [address] Patricia Fulton ARNP [address] [address] 01/12/2025 1:15 PM EDT [facility] [address] [phone] Kevin Gates MD [address] [facility] [address] [place] [phone] Scheduled Orders Name Type Priority Associated Diagnoses [...] 9.7 8.7 - 10.7 mg/dL eGFR Non-Afr Trinidadian 31 07/08/2024 us Historical Provider LAB BLOOD ORDERABLES Malena l Result documented in this encounter Visit Diagnoses Diagnosis Chronic kidney disease, stage 4 (severe) (HCC)- Primary Hypertension Renal osteodystrophy Hyperkalemia documented in this encounter Care Teams Engineering Supplies Sales Relationship Specialty Start Date End Date Name, MD Joey [address] [place] [address] PCP - General Internal Medicine 07/16/24 documented as of this encounter
--- OUTSIDE RECORDS SUMMARY | 2024-08-04 08:28 | XMS_ITS | Encounter Summary ---
Author Organization [facility] Address [address] [place] [address] Care Team Providers Care Gasoline Tester Name Role Phone Emperatriz Stoll Primary Care Provider +5 Rosa Deluca PharmD Unavailable [phone] Name, Joey MERINO Primary Care Provider [phone] Reason for Visit * Reason Comments Med Refill Encounter Details Date Type Department Care Team ([facility] st Contact Info) Description 01/12/[address] [facility] [address] [place] [address] Emperatriz Stoll FNP [address] [place], [place] [phone] Other chronic pain Social History Tobacco Use [...] 08/06/2024 9:30 AM EST Medication Management [facility] [address] [place] [address] Rosa Deluca PharmD [address] [place], [place] 08/25/2024 9:00 AM EDT Clinical Support [facility] [address] [place] [address] Remedios Calderon, KYLER 10/16/2024 10:00 AM EDT Office Visit [facility] ADULT DENTAL [address] [place] [address] Cassi Simms [address] [place] [address] documented as of this encounter Visit Diagnoses Diagnosis Other chronic pain documented in this encounter Additional Health Concerns Assessment Noted Time PHQ-9 Depression Total Score: 0 12/14/19 23 11:09 AM EDT documented as of this encounter Care Teams Gasoline Tester Relationship Specialty Start Date End Date Emperatriz Stoll FNP [address] [place] [phone] PCP - General Family Medicine 07/19/22 02/05/24 Name, MD Joey [address] [place] [phone] PCP - General Internal Medicine 02/06/24 Rosa Deluca PharmD [address] [place] [phone] Pharmacist Internal Medicine 12/03/23 documented as of this encounter
--- OUTSIDE RECORDS SUMMARY | 2024-08-04 08:28 | XMS_ITS | Clinical Summary ---
Author Organization [employer] Address [address] [place] [address] Care Team Providers Care Occupational Ther Name Role Phone Rosa Deluca PharmD Unavailable [phone] Name, Joey MERINO Primary Care Provider [phone] Allergies No known active allergies Medications albuterol [...] 024 2024 Active Lancets (OneTouch Delica Plus Exwlbr13C) miscIndications: Type 2 diabetes mellitus without complications ([facility]) USE TO TEST BLOOD SUGAR IN THE [...] Continuous Glucose Sensor (FreeStyle Sarina 2 Sensor) [facility] TEST BLOOD SUGAR FOUR TIMES DAILY 1 each 11 024 Active BD Pen Needle Danielle U/F 32G X 4 MM miscIndications: Controlled type 2 diabetes mellitus with complication, with long-term current use of insulin ([facility]) USE DIRECTED ONCE DAILY 100 each 1 Active insulin glargine (Lantus SoloStar) 100 UNIT/ML penIndications:C ontrolled type 2 diabetes mellitus with complication, with long-term current use of insulin ([facility]) Inject subcutaneously 22 units once daily Active Semaglutide,0.25 or 0.5MG/DOS, (Ozempic, 0.25 or 0.5 MG/DOSE,) 2 MG/3ML solution pen-injectorIndi cations:Type 2 diabetes mellitus without complication, with long-term current use of insulin ([facility]) INJECT 0.5 MG SUBCUTANEOUSLY EVERY 7 DAYS IN THE ABDOMEN, THIGHS, OR UPPER ARM, ROTATE INJECTION SITES. 3 mL 3 024 Active folic acid (Folvite) 1 MG tabletIndication s:Dietary counseling TAKE 1 TABLET BY MOUTH EVERY MORNING 30 tablet 1 025 Active Farxiga 10 MGIndications:Co ntrolled type 2 diabetes mellitus without complication, unspecified whether termite control servicer insulin use (CMS/[facility]) Take 1 tablet (10 mg) by mouth Once per day. 90 tablet 3 025 2025 Active gabapentin (Neurontin) 300 MG capsule TAKE [...] by mouth in the morning. 025 Active traMADol (Ultram) 50 MG tabletIndication s:Other chronic pain Take 1 tablet (50 mg) by mouth every 12 (twelve) hours if needed for severe pain for up to 28 days. 56 tablet 025 2024 Active isosorbide mononitrate ER (Imdur) 30 MG 24 hr tablet Take 30 mg by mouth in the morning. 023 2024 Discontinued(D ose adjustment) Ferrous Sulfate (iron) 325 (65 Fe) MG tablet TAKE 1 TABLET BY MOUTH EVERY MORNING WITH BREAKFAST. 30 tablet 025 2024 Discontinued Ascorbic Acid (vitamin C) 500 MG tablet TAKE 1 TABLET BY MOUTH EVERY MORNING 30 tablet 025 2024 Discontinued gabapentin (Neurontin) 300 MG capsule TAKE 1 CAPSULE BY MOUTH EVERY MORNING 30 capsule 025 2024 Discontinued traMADol (Ultram) 50 MG tabletIndication s:Other chronic pain TAKE 1 TABLET BY MOUTH EVERY TWELVE HOURS NEEDED FOR SEVERE PAIN 56 tablet 025 2024 Discontinued(R eorder (will not trigger notification to Pharmacy)) Active Problems Problem Noted Date Diagnosed Date [...] -compressions stockings 20-30 mmHg requested today to [facility] RN -pt has apt w PCP 12/21/2023 [...] Encounters Date Type Department Care Team Description 07/29/2024 Refill [facility] [address] [place] [address] Joey Barreto MD Other chronic pain 07/16/2024 Orders Only [facility] External Provider, [facility] 07/14/2024 9:45 AM EST Office Visit [facility] [address] [place] [address] Joey Barreto MD Coronary arteriosclerosis (Primary Dx); Controlled type 2 diabetes mellitus with complication, with long-term current use of insulin (CMS/HCC) 07/14/2024 Refill [facility] [address] [place] [address] Patricia Thompson DO 07/14/2024 Travel 06/27/2024 Refill [facility] MED & PEDS [address], [place] [phone] Joey Barreto MD Other chronic pain 06/24/2024 Travel 06/18/2024 9:30 AM EST Office Visit [facility] OPTOMETRY [address], [place] [phone] Nick, Jenniffer, OD 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 associated with type 2 diabetes mellitus, macular edema presence unspecified (CMS/HCC) (Primary Dx); History of panretinal photocoagulation; Epiretinal membrane (ERM) of both eyes; Macular atrophy, retinal; Pseudophakia of both eyes; Presbyopia of both eyes 06/18/2024 Travel 06/16/2024 Refill [facility] [address] [place] [address] Emperatriz Stoll FNP 06/14/[address] [address] Joey Barreto MD Dietary counseling 06/06/2024 11:30 AM EST Office Visit [address] [address] Joey Barreto MD Coronary arteriosclerosis (Primary Dx); Controlled type 2 diabetes mellitus with complication, with long-term current use of insulin (CMS/HCC) 06/06/2024 Travel 06/05/[address] [address] Monique Esquivel MA Chart Prep 06/03/2024 Orders Only GENERIC EXTERNAL DATA DEPARTMENT Provider, Generic External Data 06/02/2024 Orders Only GENERIC EXTERNAL DATA DEPARTMENT Provider, Generic External Data 05/27/2024 9:00 AM EST Clinical Support [address] [address] Remedios Calderon RN Other chronic pain (Primary Dx) 05/27/2024 Travel 05/27/[address] [address] Remedios Calderon RN Recommend CUSTOMS AND BORDER PROTECTION INSPECTOR Tier 2 05/23/2024 Refill [facility] [address], [place] [phone] Brea Shahid NP Other chronic pain 05/12/2024 Orders Only GENERIC EXTERNAL DATA DEPARTMENT Provider, Generic External Data 05/12/2024 Travel 05/08/2024 Orders Only [facility] External Provider, [facility] 05/08/2024 Telephone [facility] [address] [place] [phone] Linda Qiu RN [facility] OV notes 05/06/2024 Orders Only GENERIC EXTERNAL DATA DEPARTMENT Provider, Generic External Data from Last 3 Months Immunizations Name Administration [...] prior vaccines. Declines all vaccines.) RSV Bivalent 05/12/2024, 4(Deferred: Patient decision - Reports bad reaction [...] Description 08/06/2024 9:30 AM EST Medication Management [facility] [address] [place] [address] Rosa Deluca, PharmD [address] [place] [address] 08/25/2024 9:00 AM EDT Clinical Support [address] [address] Remedios Calderon RN 10/16/2024 10:00 AM EDT Office Visit [facility] ADULT D[facility] [address] [facility] [place] [address] Mendez, Cassi [address] [place] [address] Health Maintenance Due Date Last Done Comments [...] 06/06/2025 06/06/2024 Depression Screening 06/06/2025 06/06/2024, 06/06/19 Eye Exam 06/18/2025 06/18/2024, 06/04, 06/18/2024, Additional [...] Procedure Name Priority Date/Time Associated Diagnosis Comments [facility] CAROTID ARTERY DUPLEX BILATERAL Routine 07/18/2024 8:03 AM EST [facility] LOWER EXTREMITY VENOUS DUPLEX BILATERAL Routine 07/16/2024 8:50 AM EST POCT GLYCATED HEMOGLOBIN, TOTAL Routine 07/14/2024 9:46 AM EST Controlled type 2 diabetes mellitus with complication, with long-term current use of insulin ([facility]) POCT GLUCOSE Routine 07/14/2024 9:46 AM EST Controlled type 2 diabetes mellitus with complication, with long-term current use of insulin ([facility]) OCT, RETINA - OU - BOTH EYES Routine 06/18/2024 9:30 AM EST Epiretinal membrane (ERM) of both eyes POCT GLUCOSE Routine 06/06/2024 11:45 AM EST Controlled type 2 diabetes mellitus with complication, with long-term current use of insulin ([facility]) BASIC METABOLIC PANEL Routine 06/03/2024 10:22 AM [...] AM EST) 07/18/2024 8:03 AM EST Narrative [facility] IMAGING - 07/18/2024 8:04 AM EST ? [facility] ?[address] ?[place] [address] ? Ultrasound Report ? Signed ? Patient: Dewitt,Efrain ?MR#: [id number] ? : 1960 ?Acct:[id number] ? Age/Sex: 63 / M ?ADM Date: 07/17/24 ? Loc: HO.US ? Attending Dr: Demarcus Portillo MD ? Ordering Physician: Demarcus Portillo MD ?? Date of Service: 07/17/24 ?? Procedure(s): US carotid duplex BI ?? Accession Number(s): [id number] ? cc: Emperatriz Stoll NP; Demarcus Portillo [...] left external carotid arteries. There ?? are ugld-li-uqinrwtr atheromatous atheromatous plaques proximal left ?? internal carotid artery mild atheromatous plaques left common carotid ?? artery vovc-nc-asengsvp atheromatous plaques within the left carotid bulb. [...] DD/ 0803 ? TD/TT: 07/18/24 0803 ? Manufacturing Finance Manager: ? Procedure Note Nahed, oRbi - 07/18/2024 [place] [address] [facility] [place] [address] Ultrasound Report Signed Patient: Efrain DewittMR#: [id number] : 1960cct:[id number] Age/Sex: 63 / MADM Date: 07/17/24 Loc: HO.US Attending Dr: Demarcus Portillo MD Ordering Physician: Demarcus Portillo MD Date of Service: 07/17/24 Procedure(s): US carotid duplex BI Accession Number(s): [id number] cc: Emperatriz Stoll COMMISSIONER OF OFFICIALS; Demarcus Portillo MD CLINICAL HISTORY: atherosclerosis US [...] and left external carotid arteries. There are kofg-ho-cxeyzewu atheromatous atheromatous plaques proximal left internal carotid artery mild atheromatous plaques left common carotid artery knso-ai-xtwapltl atheromatous plaques within the left carotid bulb. [...] 07/18/24 0804 DD/ 0803 TD/TT: 07/18/24 0803 Manufacturing Finance Manager: us [facility] External Provider CV VASC ULAR PROCEDURES Edited Result - Final [facility] IMAGING [address] [place] [phone] * VASC US Lower Extremity Venous Duplex Bilateral (07/16/2024 8:50 AM EST) 07/16/2024 8:50 AM EST Narrative [facility] IMAGING - 07/16/2024 10:13 AM EST ? [facility] ?[address] ?[place] [address] ? Ultrasound Report ? Signed ? Patient: Dewitt,Efrain ?MR#: [id number] ? : 1960 ?Acct:[id number] ? Age/Sex: 63 / M ?ADM Date: 07/16/24 ? Loc: HO.US ? Attending Dr: Demarcus Portillo MD ? Ordering Physician: Demarcus Portillo MD ?? Date of Service: 07/16/24 ?? Procedure(s): US venous duplex LE BI ?? Accession Number(s): [id number] ? cc: Emperatriz Stoll NP; Demarcus Portillo [...] Calf: 0.2 cm; depth: 0.4 cm ? US/ venous duplex LE BI ?? IMPRESSION: ?? Bilateral saphenous venous mapping as discussed above. ? Electronically signed by: ??Jacoby Piedra MD ??07/16/2024 10:10 AM EST RP ? Dictated By: ?Jacoby Piedra MD ? Signed By: ?<Electronically signed by Jacoby Piedra MD in OV> ?07/16/24 1010 ? DD/ 0850 ? TD/TT: 07/16/24 0919 ? Manufacturing Finance Manager: ? Procedure Note Manoloroxysilviaelysia, Image - 07/16/2024 [place] [address] Ultrasound Report Signed Patient: Efrain DewittMR#: [id number] : 1960cct:[id number] Age/Sex: 63 / MADM Date: 07/16/24 Loc: HO.US Attending Dr: Demarcus Portillo MD Ordering Physician: Demarcus Portillo MD Date of Service: 07/16/24 Procedure(s): US venous duplex LE BI Accession Number(s): [id number] cc: Emperatriz Stoll COMMISSIONER OF OFFICIALS; Demarcus Portillo MD EXAMINATION: US LOWER EXTREMITY [...] by: Jacoby Piedra MD 07/16/2024 10:10 AM [facility] Dictated By: Jacoby Piedra MD Signed By: <Electronically signed by Jacoby Piedra MD in OV> 02/12/25 1010 DD/ 0850 TD/TT: 07/16/24 0919 Manufacturing Finance Manager: [facility] External Provider CV VASC ULAR PROCEDURES Final Result [facility] [address] [place] [address] * POCT HGB A1C (07/14/2024 9:46 AM EST) Hemoglobin A1C 6.0 4.0 - 6.0 % QC Media Lot # [id number] Lot# Expiration Date , Blood 07/14/2024 9:46 AM EST Joey Barreto MD POINT OF CARE TEST ENTER/EDIT OR DERABLES Final Result * POCT Glucose (07/14/2024 9:46 AM EST) Only the most recent of2 resultswithin the time period is included. Glucose Blood, POC 67 60 - 200 mg/dL Comment:Fasting QC Media Lot # [id number] Lot# Expiration Date , Blood Capillary blood specimen / Unknown 07/14/2024 [...] Patient already followed by Dr. Abbott at [facility]. He will continue his frequent follow-ups there as scheduled. Will monitor here in 1 year. us Jenniffer Romero OD OPHTH TOMOGRAPHY Final Result * (ABNORMAL) CBC auto differential (06/03/2024 10:22 AM EST) White Blood Count 6.8 4.8 - 10.8 X10*3/uL [facility] Red Blood Count 3.86(L) 4.60 - 5.80 X10*6/uL [facility] Hemoglobin 11.6(L) 14.0 - 18.0 g/dl [facility] Hematocrit 36.5(L) 42.0 - 52.0 % [facility] Mean Corpuscular Volume 94.6 80.0 - 98.0 fL [facility] Mean Corpuscular Hemoglobin 30.1 27.0 - 33.0 pg [facility] Mean Corpuscular HGB Conc 31.8 31.0 - 36.0 g/dl [facility] Red Cell Distribution Width 14.2 11.0 - 16.0 % [facility] Platelet Count 258 160 - 400 X10*3/uL [facility] Mean Platelet Volume 10.0 9.4 - 12.4 fL [facility] Neutrophils Percent Auto 60.2 45 - 73 % [facility] Imm Gran Pct Auto 0.3 0.0 - 0.4 % [facility] Lymphocytes Percent Auto 27.0 20 - 40 % [facility] Monocytes Percent Auto 8.3 2 - 11 % [facility] Eosinophils Percent Auto 3.5 0 - 4 % [facility] Basophils Percent Auto 0.7 0 - 2 % [facility] NRBC Pct Auto 0.0 0.0 - 0.2 /100WBC [facility] Neutrophils Absolute Auto 4.1 2.0 - 8.3 x10*3/uL [facility] Imm Gran Abs Auto 0.02 0.00 - 0.03 X10*3/uL [facility] Lymphocytes Absolute Auto 1.8 1.2 - 4.9 X10*3/uL [facility] Monocytes Absolute Auto 0.6 0.1 - 1.2 X10*3/uL [facility] Eosinophils Absolute Auto 0.2 0.0 - 0.4 X10*3/uL [facility] Basophils Absolute Auto 0.1 0.0 - 0.2 X10*3/uL [facility] NRBC Abs Auto 0.000 0.0 - 0.012 X10*3/uL [facility] 06/03/2024 10:2 2 AM EST 06/03/2024 10:22 AM EST Generic External Data Provider LAB BLOOD ORDERAB LES Final Result Performing Organization Address [facility] de Phone Number [facility] [address] [place] [phone] * Prothrombin Time-INR (06/03/2024 10:22 AM EST) Prothrombin Time 11.4 10.9 - 12.4 SEC [facility] INTERNATIONAL NORM RATIO 1.0 0.9 - 1.1 [facility] Comment:INTERNATIONAL NORMAL IZED RATIO (INR) REFERENCE [...] ORDERAB LES Final Result Performing Organization Address [facility] de Phone Number [facility] [address] [place] [address] [place] [phone] * (ABNORMAL) Basic Metabolic Panel (06/03/2024 10:22 AM EST) Only the most recent of2 resultswithin the time period is included. Sodium 142 135 - 145 mmol/L [facility] Potassium 3.8 3.3 - 5.1 mmol/L [facility] Chloride 112(H) 96 - 108 mmol/L [facility] Carbon Dioxide 20(L) 22 - 29 mmol/L [facility] Anion Gap 14 12 - 20 [facility] Urea Nitrogen (BUN) 24(H) 9 - 16 mg/dL [facility] Creatinine, Serum 1.96(H) 0.5 - 1.4 mg/dL [facility] Estimated Glomerular Filt Rate 35 [facility] Comment:Chronic Kidney Disea se: Estimated GFR < 60 mL/min/1.05s8Kzghgg Kidney Disease: Estimated GFR < 15 mL/min/1.73m2 Glucose 69 60 - 115 mg/dL [facility] Calcium 8.9 8.4 - 10.2 mg/dL [facility] 06/03/2024 10:2 2 AM EST 06/03/2024 10:22 AM EST us Generic External Data Provider LAB BLOOD ORDERAB LES Final Result [facility] [address] [place] [phone] [phone] * (ABNORMAL) Lipid Panel, Standard (06/02/2024 9:33 AM EST) Triglycerides 68 <150 mg/dL [facility] Comment:Desirable Triglyceri de: less than 150 mg/dLBorderline High Triglyceride 150-199 mg/dLHigh Triglyceride: 200-499 mg/dLVery High Triglyceride: greater than or equal to 5OO mg/dL Cholesterol 91 <200 mg/dL [facility] Comment:Desirable Cholestero l: less than 200 mg/dLBorderline High Cholesterol: 200-239 mg/dLHigh Cholesterol: greater than 239 mg/dL LDL Cholesterol Calculated 55 <100 mg/dL [facility] Comment:Desirable LDL: less than 100 mg/dLNear Optimal/Above Optimal LDL: 110- 129 mg/dLBorderline High LDL: 130-159 mg/dLHigh LDL: 160-189 mg/dLVery High LDL: greater than or equal to 190 mg/dL HDL Cholesterol 23(L) >40 mg/dL [facility] Comment:Desirable HDL: great er than 40 mg/dL Note: This HDL assay may give artificially low results in patients with liver disease. 06/02/2024 9:33 AM EST 06/02/2024 9:33 AM EST us Generic External Data Provider LAB BLOOD ORDERAB LES Final Result [facility] [address] [place] [phone] * POCT TRINITY-14 Urine Drug Screen (05/27/2024 8:55 AM EST) Urine Urine specimen obtained by clean catch procedure / Unknown 05/27/2024 8:55 AM EST Remedios Topete RN - 05/27/2024 8:55 AM EST UTOX cup Lot#[id number] Exp. 02/26/26 Internal Pass Control Negative for all substances Joey Name POINT OF CARE TEST ENTER/EDIT OR DERABLES Final Result * Testosterone, Free (Dialysis) And Total, MS (05/12/2024 9:55 AM EST) Testosterone, Total 390 250 - 1100 ng/dL [facility] Comment:Men with clinically significant hypogonadalsymptoms and testosterone values repeatedly inthe range of the 200-300 ng/dL or less, maybenefit from testosterone treatment afteradequate risk and benefits counseling.For additional information, please refer tohttp://[email or web address].EarlyDoc/faq/[email or web address](This link is being provided for informational/educational purposes only.)This test was developed and its analytical performancecharacteristics have been determined by [place]. It hasnot been cleared or approved by the U.S. Food and DrugAdministration. This assay has been validated pursuantto the CLIA regulations and is used for clinicalpurposes. Testosterone, Free 66.3 35.0 - 155.0 pg/mL [facility] Comment:This test was develo ped and its analytical performancecharacteristics have been determined by [place]. It hasnot been cleared or approved by the .S. Food and DrugAdministration. This assay has been validated pursuantto the CLIA regulations and is used for clinicalpurposes.THIS TEST WAS PERFORMED AT:[employer] [id number] [place] [id number] W. MASON,MD,PHD 05/12/2024 9:55 AM EST 05/12/2024 11:39 AM EST Generic External Data Provider LAB BLOOD ORDERAB LES Final Result Performing Organization Address City/[facility]/ZIP Co de Phone Number [facility] [address] [place] [phone] * PSA,Total (05/12/2024 9:55 AM EST) Prostate Specific Antigen 3.78 <0.05 - 4.0 ng/mL [facility] Comment:PSA methodology: Abb jose cruz Alijoety i ChemiluminescentMicroparticle Immunoassay (CMIA) 05/12/2024 9:55 AM EST 05/12/2024 11:50 AM EST us Generic External Data Provider LAB BLOOD ORDERAB LES Final Result Performing Organization Address City/[facility]/ZIP Co de Phone Number [facility] [address] [place] [phone] * (ABNORMAL) Hemoglobin A1c (05/12/2024 9:55 AM EST) Hemoglobin A1c 6.4(H) <6.0 % [facility] Comment:Hemoglobin A1C Refer ence Range Adults: 4.8 - 6.0 % Non diabetic: < 6.0 % Goal: < 7.0 %Additional Action Suggested: > 8.0 %Note: Hemoglobin A1c results are invalid for patients with abnormal amounts of HbF. Blood transfusions may impact the HbA1c concentration in the patient sample. Estimated Average Glucose 137 mg/dL [facility] Comment:eAG = Estimated ave rage glucose which is %A1C expressed asaverage glucose, using the formula of the I8D-BunpsdaYjdgbwd Glucose study (ADAG), Diabetes Care, Vol.31,#8,2007 05/12/2024 9:55 AM EST 05/12/2024 11:39 AM EST us Generic External Data Provider LAB BLOOD ORDERAB LES Final Result [facility] [address] [place] [phone] * Stress test with myocardial perfusion (05/08/2024 8:01 AM EST) 05/08/2024 8:01 AM EST Narrative [facility] - 05/09/2024 1:22 PM EST ? [facility] ?[address] ?[place] [address] ?Nuclear Medicine Report ? Signed ? Patient: Esdras,Efrain ?MR#: [id number] ? : 1960 ?Acct:[id number] ? Age/Sex: 63 / M ?ADM Date: 12/05/24 ? Loc: HO.CARD ? Attending Dr: Tl Jones MD ? Ordering Physician: Tl Jones MD ?? Date of Service: 05/08/24 ?? Procedure(s): NM cardiolite stress test ?? Accession Number(s): [id number] ? cc: Emperatriz Stoll NP; Tl Jones [...] DD/ 0801 ? TD/TT: 05/09/24 1005 ? Manufacturing Finance Manager: ? Procedure Note Donotuseinterpreter, Image - 05/09/[address] [address] Nuclear Medicine Report Signed Patient: Efrain DewittMR#: [id number] : 1Acct:[id number] Age/Sex: 63 / MADM Date: 05/08/24 Loc: MOISES Attending Dr: Tl Jones MD Ordering Physician: Tl Jones MD Date of Service: 05/08/24 Procedure(s): NM cardiolite stress test Accession Number(s): [id number] cc: Emperatriz Stoll COMMISSIONER OF OFFICIALS; Tl Jones MD EXERCISE MYOCARDIAL PERFUSION STUDY [...] 05/09/24 1319 DD/ 0801 TD/TT: 05/09/24 1005 Manufacturing Finance Manager: [facility] External Provider CV STRE SS PROCEDURES Edited Result - Final [facility] [address] [place] [phone] * Cytopath-cell enhanced (05/06/2024 4:37 PM EST) 05/06/2024 4:37 PM EST 05/07/2024 1:25 PM EST Narrative [facility] - 05/09/2024 9:42 AM EST ----- ------- Name: Efrain Dewitt ? Age/Sex: 63/M ? : 1960 Unit#: [id number] ?? Attend Dr: Elmira Mcdonald-MARYELLEN ?Re05/06/24 ?Status: DEP REF ? Location: HO.LAB ?Disch: ? ----- ------- SPEC : [id number] ?RECD: 05/07/24 ? STATUS: ??SOUT ? REQ NUM: [id number] ? ARPAN: 05/06/24-163 ? SUBM DR: Elmira Mcdonald-MARYELLEN ? ENTERED: ??05/07/249661 ?SP TYPE: Cytology ? OTHR : Emperatriz Stoll COMMISSIONER OF OFFICIALS ? ORDERED: ??Cyto-enhanced ? Diagnosis ?? Urine: [...] is prepared. Copies To: ?? Emperatriz Stoll COMMISSIONER OF OFFICIALS ?? [address] ?? [place] [address] ?? [phone] ?? Elmira Mcdonald [facility] ?? [address] [place] [address] [address] ?? [place] [address] ?? [phone] ?? [email or web address] ----- ------- Signed (signature on file) Jeanmarie Chavez MD 05/09/24 0942 ? ----- ------- ? END OF REPORT ? us Generic External Data Provider LAB CYTOLOGY SPEEDY DONG Final Result [facility] [facility] [address] [place] [address] [phone] from Last 3 Months Insurance DENTAL - [facility] Care Teams Occupational Ther Relationship Specialty Start Date End Date Name, MD Joey [address] [place] [address] PCP - General Internal Medicine 02/06/24 Rosa Deluca, PharmD [address] [place] [address] Pharmacist Internal Medicine 12/03/23
--- OUTSIDE RECORDS SUMMARY | 2024-08-04 08:28 | XMS_ITS | Encounter Summary ---
Author Organization [facility] Address [address] [address] Phone Care Team Providers Care Lumber Racker Name Role Phone Name, Joey MERINO Primary Care Provider [phone] Encounter Details Date Type Department Care Team (Late Contact Info) Description 08/04/2024 Orders Only [facility] [address] [place] [phone] Kevin Gates MD [address] [address] Chronic kidney disease, stage 4 (severe) (HCC); Renal osteodystrophy Social History Tobacco Use Types Packs/Day Years [...] Office Visit [facility] [address] [address] Patricia Fulton ARNP [address] [address] 01/12/2025 1:15 PM EDT Office Visit [facility] [address] [place] [address] Kevin Gates MD [address] [address] documented as of this encounter Visit Diagnoses Diagnosis Chronic kidney disease, stage 4 (severe) (HCC) Renal osteodystrophy documented in this encounter Care Teams Lumber Racker Relationship Specialty Start Date End Date Name, MD Joey [address] [place] [address] PCP - General Internal Medicine 07/16/24 documented as of this encounter
--- OUTSIDE RECORDS SUMMARY | 2024-08-04 08:28 | XMS_ITS | Patient Health Record ---
Author Organization [facility] Address [address] [facility] [place] [address] Care Team Providers Care Portable Sawyer Name Role Phone VICENTE CAGE Primary Care Provider NAVNEET Will Unavailable [phone] Reason For Referral No Information Medications Medication SIG (Take, Route, Frequency, Duration) Notes Start Date End Date Status Famotidine 40 MG 1 tablet at bedtime Orally Once a day for 30 day(s) 12/12/2019 Active hydroCHLOROthiazide 12.5 MG 1 capsule in the morning Orally Once a day for 30 day(s) Active Doxycycline Monohydrate 100 MG 1 capsule Orally Once a day for 10 day(s) Active Iron (Ferrous Sulfate) 142 ( 45 Fe) MG 1 tablet Orally Once a day for 30 day(s) Active Lisinopril 20 MG 1 tablet Orally Once a day for 30 day(s) Active Vitamin D (Ergocalciferol) 1.25 MG (87576 UT) 1 capsule Orally for 30 day(s) Active Neurontin 100 MG 1 capsule Orally Onc e a day for 30 day(s) Active Folic Acid 1 MG 1 tablet Orally Once a day for 30 day(s) Active HumuLIN 70/30 (70-30) 100 UNIT/ML as directed Subcutaneous Active Carvedilol 12.5 MG 1 tablet with food Orally Twice a day for 30 day(s) Active Zofran 4 MG 1 tablet Orally bid for 30 day(s) 12/12/2019 Active Social History Tobacco Use: Social History Observation Description Date Details (start date - stop date) Never Smoker NA - NA Tobacco Use/Smoking Question Answer Notes Are you a nonsmoker Problems Problem Type SNOMED Code ICD Code Onset Dates Problem Status W/U Status Risk Notes Problem Anemia in chronic kidney disease (432067956) Anemia in chronic kidney disease (D63.1) Active confirmed Problem Diabetic renal disea se (650231341) 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) Active confirmed Problem Mild recurrent major depression (08640411) Major depressive disorder, recurrent, mild (F33.0) Active confirmed Problem Idiopathic periphera l autonomic neuropathy (34379894) Other idiopathic peripheral autonomic neuropathy (G90.09) Active confirmed Problem Chronic systolic hea rt failure (414775714) Chronic systolic (congestive) heart failure (I50.22) Active confirmed Problem Chronic kidney disea se stage 4 (060865935) Chronic kidney disease, stage 4 (severe) (N18.4) Active confirmed Problem Pure hypercholesterolemia (191533120) Pure hypercholester olemia, unspecified (E78.00) Active confirmed Problem Essential hypertensi on (05216737) Essential hypertension (I10) Active confirmed Plan Of Treatment Pending Test Test Name Order Date ESOPHAGOGASTRODUODENOSCOPY 12/12/2019 COLONOSCOPY AND BIOPSY 12/12/2019 COVID -19 Testing 12/12/2019 Insurance Providers Payer Name Payer Address Payer Phone Subscriber Number Group Number Insured Name Patient Relationship to Insured Coverage Start Date Coverage End Date [employer] [address] [address] [place] [phone] [id number] ELAINE FLEMING Self - patient is the insured Medical (General) History Medical History History ICD Code Chronic kidney disease, stage 4 (severe) N18.4 Chronic systolic (congestive) heart fail ure I50.22 Other idiopathic peripheral autonomic ne uropathy G90.09 Major depressive disorder, recurrent, mi ld F33.0 Pure hypercholesterolemia, unspecified E 78.00 Type 2 diabetes mellitus with diabetic n ephropathy E11.21 Anemia in chronic kidney disease D63.1 Essential hypertension I10 Surgical History Surgery Date(Month/Year) portacath placement
--- OUTSIDE RECORDS SUMMARY | 2024-08-04 08:28 | XMS_ITS | Encounter Summary ---
Author Organization [facility] Address [address] 7[address] [place] [address] Care Team Providers Care Director Digital Name Role Phone Emperatriz Stoll Primary Care Provider +2 Rosa Deluca PharmD Unavailable [phone] Name, Joey MERINO Primary Care Provider [phone] Encounter Details Date Type Department Care Team ([facility] st Contact Info) Description 10/20/2022 Orders Only [facility] [address] [place] [address] Emperatriz Stoll FNP [address] [place], [place] [phone] Other chronic pain Social History Tobacco Use [...] Description 08/06/2024 9:30 AM EST Medication Management [facility] [address] [place] [address] Rosa Deluca, PharmD [address] [place] [address] 08/25/2024 9:00 AM EDT Clinical Support [facility] [address] [place] [address] Remedios Calderon, KYLER 10/16/2024 10:00 AM EDT Office Visit [facility] ADULT DENTAL [address] [place] [address] Cassi Simms [address] [place] [address] documented as of this encounter Procedures Procedure Name Priority Date/Time Associated Diagnosis Comments XR CHEST 2 VIEWS Routine 11/17/2022 4:30 PM EDT documented in this encounter Results * XR Chest 2 Views (11/17/2022 4:30 PM EDT) Anatomical Region Laterality Modality Chest Radiographic Mony ging 11/17/2022 4:30 PM EDT Narrative 11/24/2022 2:21 PM EDT ?[facility] ?[address] ?[place] [address] ?XRay Report ? Signed ? Patient: Esdras,Efrain ?MR#: [id number] ? : 1960 ?Acct:[id number] ? Age/Sex: 61 / M ?ADM Date: /16/ ? Loc: HO.HHCX ? Attending Dr: Emperatriz Stoll POWER AND RECOVERY SHIFT ENGINEER ? Ordering Physician: Emperatriz Stoll POWER AND RECOVERY SHIFT ENGINEER ?? Date of Service: 11/17/22 ?? Procedure(s): XR chest 2V ?? Accession Number(s): [id number] ? cc: Emperatriz Stoll POWER AND RECOVERY SHIFT ENGINEER ? EXAMINATION: ?? XR CHEST ? CLINICAL [...] 1418 ? DD/ 1630 ? TD/TT: ? Gravity Manager: DAVID ? Procedure Note Robi Dockery - 11/29/2022 [facility] [address] [place] [address] XRay Report Signed Patient: Efrain DewittMR#: [id number] : 1960cct:[id number] Age/Sex: 61 / MADM Date: 11/17/22 Loc: HO.HHCX Attending Dr: Emperatriz Stoll POWER AND RECOVERY SHIFT ENGINEER Ordering Physician: Emperatriz Stoll NP Date of Service: 11/17/22 Procedure(s): XR chest 2V Accession Number(s): [id number] cc: Emperatriz Stoll POWER AND RECOVERY SHIFT ENGINEER EXAMINATION: XR CHEST CLINICAL INFORMATION: Bilateral lower [...] in OV> 11/24/22 1418 DD/ 1630 TD/TT: Gravity Manager: DAVID [facility] External Provider IMG XR PROCEDURES Final Result documented in this encounter Visit Diagnoses Diagnosis Other chronic pain documented in this encounter Additional Health Concerns Assessment Noted Time PHQ-9 Depression Total Score: 7 07/19/19 23 3:07 PM EST documented as of this encounter Care Teams Director Digital Relationship Specialty Start Date End Date Emperatriz Stoll FNP [address] [place] [address] PCP - General Family Medicine 07/19/22 02/05/24 Name, MD Joey [address] [place], [place] [phone] PCP - General Internal Medicine 02/06/24 Rosa Deluca, Martha [address] [place] [address] Pharmacist Internal Medicine 12/03/23 documented as of this encounter
--- OUTSIDE RECORDS SUMMARY | 2024-08-04 08:29 | XMS_ITS | Encounter Summary ---
Author Organization [facility] Address [address] 7t [place] [address] Care Team Providers Care Milking Machine Mechanic Name Role Phone Emperatriz Stoll Primary Care Provider [phone] Rosa Deluca PharmD Unavailable [phone] Name, Joey MERINO Primary Care Provider [phone] Reason for Visit * Reason Onset Date Comments Med Refill 08/30/2023 Encounter Details Date Type Department Care Team ([facility] st Contact Info) Description 08/30/2023 Telephone [facility] MEDICINE [address] [place], [place] [phone] Emperatriz Stoll FNP [address] [place], [place] [phone] Med Refill Social History Tobacco Use Types [...] 50 MG tablet To be sent to: [facility] [place], [place] - [address] [place] [address] documented in this encounter Plan of Treatment Upcoming Encounters Date Type Department Care Team ([facility] st Contact Info) Description 08/06/2024 9:30 AM EST Medication Management [facility] MED[facility]INE [address] [place] [address] Rosa Deluca, PharmD [address] [place] [address] 08/25/2024 9:00 AM EDT Clinical Support [facility] MED[facility]INE [address] [place] [address] Remedios Calderon RN 10/16/2024 10:00 AM EDT Office Visit [facility] ADULT DENTAL [address] [place] [address] Cassi Simms [address] [place] [address] documented as of this encounter Goals Goal [...] documented as of this encounter Care Teams Milking Machine Mechanic Relationship Specialty Start Date End Date Emperatriz Stoll FNP [address] [place] [address] PCP - General Family Medicine 07/19/22 02/05/24 Name, MD Joey [address] [place] [address] PCP - General Internal Medicine 02/06/24 Rosa Deluca, DamionD [address] [place] [address] Pharmacist Internal Medicine 12/03/23 documented as of this encounter
--- OUTSIDE RECORDS SUMMARY | 2024-08-04 08:29 | XMS_ITS | Encounter Summary ---
Author Organization [facility] Address [address] 7t [place] [address] Care Team Providers Care Faculty Instructor Name Role Phone Emperatriz Stoll Primary Care Provider +7 Rosa Deluca PharmD Unavailable [phone] Name, Joey MERINO Primary Care Provider [phone] Encounter Details Date Type Department Care Team (Late Contact Info) Description 08/21/2022 Orders Only [facility] MEDICINE [address] [place] [address] Emperatriz Stoll FNP [address] [place], [place] [phone] Social History Tobacco Use Types Packs/Day Years [...] Department Care Team (Late Contact Info) Description 08/06/2024 9:30 AM EST Medication Management [facility] MEDICINE [address] [place] [address] Rosa Deluca PharmD [address] [place] [address] 08/25/2024 9:00 AM EDT Clinical Support [facility] MEDIC[facility] [address] [place] [address] Remedios Calderon, KYLER 10/16/2024 10:00 AM EDT Office Visit [facility] ADULT DENTAL [address] [place] [address] Cassi Simms [address] [place] [address] documented as of this encounter Visit Diagnoses Not on filedocumented in this encounter Additional Health Concerns Assessment Noted Time PHQ-9 Depression Total Score: 7 07/19/19 23 3:07 PM EST documented as of this encounter Care Teams Faculty Instructor Relationship Specialty Start Date End Date Emperatriz Stoll FNP [address] [place] [address] PCP - General Family Medicine 07/19/22 02/05/24 Joey Barreto MD [address] [place] [address] PCP - General Internal Medicine 02/06/24 Rosa Deluca PharmD [address] [place] [address] Pharmacist Internal Medicine 12/03/23 documented as of this encounter
--- OUTSIDE RECORDS SUMMARY | 2024-08-04 08:29 | XMS_ITS | Encounter Summary ---
Author Organization [facility] Address [address] [place] [address] Phone Care Team Providers Care Giant Tire Repairer Name Role Phone Name, Joey MERINO Primary Care Provider [phone] Encounter Details Date Type Department Care Team (Late st Contact Info) Description 08/09/2022 Telephone [facility] [address] [place] [address] Patricia Deras Social History Tobacco [...] Office Visit [facility] [address] [phone] Patricia Fulton ARNP [address] [address] 01/12/2025 1:15 PM EDT Office Visit [facility] [address] [phone] Kevin Gates MD [address] [address] documented as of this encounter Visit Diagnoses Not on filedocumented in this encounter Care Teams Giant Tire Repairer Relationship Specialty Start Date End Date Name, MD Joey [address] [place] [address] PCP - General Internal Medicine 07/16/24 documented as of this encounter
--- OUTSIDE RECORDS SUMMARY | 2024-08-04 08:29 | XMS_ITS | Patient Health Record ---
Author Organization [facility] Address [address] [address] Care Team Providers Care Air Sealing Technician Name Role Phone Data, Migration. Unavailable [phone] Reason For Referral No Information Medications Medication [...] Status W/U Status Risk Notes Problem Heartburn (95645232) Heartburn (R12) 08/18/19 18 Active confirmed LO511-Ilhqwyw rn Problem Acid reflux (723607209) Acid reflux (K21.9) 08/18/19 18 Active confirmed UR965-Zfbl reflux Problem Epigastric pain (47906885) Abdominal Pain Epigastric (R10.13) 08/18/19 18 Active confirmed SJ251-Zqimqwo al Pain Epigastric Problem Flatulence, eructation and gas pain (995627881) Bloating /gas symptom (R14.0) 08/18/19 18 Active confirmed QZ689-Tmrshix g /gas symptom Plan Of Treatment No Information Medical (General) History Surgical History Surgery Date(Month/Year) Stent (1) 2016 catheterization 2017 Eye Surgery (Right) 2016
--- OUTSIDE RECORDS SUMMARY | 2024-08-04 08:29 | XMS_ITS | Encounter Summary ---
Demographics Address [address] [place] [address] [address] [place] [address] Mobile Phone Home Phone Email Address Preferred Language es Marital Status Shinto Affiliation Unknown Race White Ethnic Group or Author Organization [facility] Address [address] [place] [address] Care Team Providers Care Pelts Skinner Name Role Phone Rosa Deluca PharmD Unavailable [phone] Name, Joey MERINO Primary Care Provider [phone] Encounter Details Date Type Department Care Team ([facility] st Contact Info) Description 07/16/2024 Orders Only [facility] External Provider, [facility] Social History Tobacco Use Types Packs/Day [...] 08/06/2024 9:30 AM EST Medication Management [facility] MED[facility] [address] [place] [address] Rosa Deluca PharmD [address] [place] [address] 08/25/2024 9:00 AM EDT Clinical Support [facility] MEDICINE [address] [place] [address] Remedios Calderon RN 10/16/2024 10:00 AM EDT Office Visit [facility] ADULT DENTAL [address] [place] [address] Cassi Simms [address] [place] [address] documented as of this encounter Goals Goal Patient Goal Type Associated Problems Recent Progress Patient-Stated? Author Blood Pressure < 140/90 Blood Pressure 130/64(2024 9:43 AM EST) No Donald Johnson Hemoglobin A1c < 7.5 Result Component 6(07/14/2024 9:46 AM EST) No Donald Johnson documented as of this encounter Procedures Procedure Name Priority Date/Time Associated Diagnosis Comments [facility] US CAROTID ARTERY DUPLEX BILATERAL Routine 07/18/2024 8:03 AM EST [facility] US LOWER EXTREMITY VENOUS DUPLEX BILATERAL Routine 07/16/2024 8:50 AM EST documented in this encounter Results * VASC US Carotid Artery Duplex Bilateral (07/18/2024 8:03 AM EST) 07/18/2024 8:03 AM EST Narrative [facility] - 07/18/2024 8:04 AM EST ? [facility] ?[address] ?[place] [address] ? Ultrasound Report ? Signed ? Patient: Esdras,Efrain ?MR#: [id number] ? : 1960 ?Acct:[id number] ? Age/Sex: 63 / M ?ADM Date: 07/17/24 ? Loc: HO.US ? Attending Dr: Demarcus Portillo MD ? Ordering Physician: Demarcus Portillo MD ?? Date of Service: 07/17/24 ?? Procedure(s): US carotid duplex BI ?? Accession Number(s): [id number] ? cc: Emperatriz Stoll NP; Demarcus Portillo [...] left external carotid arteries. There ?? are lrry-tv-mggxzjkq atheromatous atheromatous plaques proximal left ?? internal carotid artery mild atheromatous plaques left common carotid ?? artery ocre-sc-mdbyiepf atheromatous plaques within the left carotid bulb. [...] DD/ 0803 ? TD/TT: 07/18/24 0803 ? Malt House Supervisor: ? Procedure Note Nahed, Image - 07/18/[address] [address] Ultrasound Report Signed Patient: Efrain DewittMR#: [id number] : 1Acct:[id number] Age/Sex: 63 / MADM Date: 07/17/24 Loc: HO.US Attending Dr: Demarcus Portillo MD Ordering Physician: Demarcus Portillo MD Date of Service: 07/17/24 Procedure(s): US carotid duplex BI Accession Number(s): [id number] cc: Emperatriz Stoll FURNITURE DETAILER; Demarcus Portillo MD CLINICAL HISTORY: atherosclerosis US [...] and left external carotid arteries. There are ftav-bt-qjptjuib atheromatous atheromatous plaques proximal left internal carotid artery mild atheromatous plaques left common carotid artery lfox-yu-jszwqywd atheromatous plaques within the left carotid bulb. [...] 07/18/24 0804 DD/ 0803 TD/TT: 07/18/24 0803 Malt House Supervisor: us [facility] External Provider CV VASC ULAR PROCEDURES Edited Result - Final [facility] [address] [place] [address] * VASC US Lower Extremity Venous Duplex Bilateral (07/16/2024 8:50 AM EST) 07/16/2024 8:50 AM EST Narrative [facility] - 07/16/2024 10:13 AM EST ? [facility] ?[address] ?[place] [address] ? Ultrasound Report ? Signed ? Patient: Dewitt,Efrain ?MR#: [id number] ? : 1960 ?Acct:[id number] ? Age/Sex: 63 / M ?ADM Date: 07/16/24 ? Loc: HO.US ? Attending Dr: Demarcus Portillo MD ? Ordering Physician: Demarcus Portillo MD ?? Date of Service: 07/16/24 ?? Procedure(s): US venous duplex LE BI ?? Accession Number(s): [id number] ? cc: Emperatriz Stoll NP; Demarcus Portillo [...] DD/ 0850 ? TD/TT: 07/16/24 0919 ? Malt House Supervisor: ? Procedure Note Robi Dockery - 07/16/[address] [address] Ultrasound Report Signed Patient: Efrain DewittMR#: [id number] : 1960cct:[id number] Age/Sex: 63 / MADM Date: 07/16/24 Loc: HO.US Attending Dr: Demarcus Portillo MD Ordering Physician: Demarcus Portillo MD Date of Service: 07/16/24 Procedure(s): US venous duplex LE BI Accession Number(s): [id number] cc: Emperatriz Stoll FURNITURE DETAILER; Demarcus Portillo MD EXAMINATION: US LOWER EXTREMITY [...] 07/16/24 1010 DD/ 0850 TD/TT: 07/16/24 0919 Malt House Supervisor: us [facility] External Provider CV VASC ULAR PROCEDURES Final Result [facility] [address] [place] [address] documented in this encounter Visit Diagnoses Not on filedocumented in this encounter Additional Health Concerns Assessment Noted Time PHQ-9 Depression Total Score: 8 06/06/19 25 11:44 AM EST documented as of this encounter Care Teams Pelts Skinner Relationship Specialty Start Date End Date Name, MD Joey [address] [place] [address] PCP - General Internal Medicine 02/06/24 Rosa Deluca PharmD [address] [place] [address] Pharmacist Internal Medicine 12/03/23 documented as of this encounter
--- OUTSIDE RECORDS SUMMARY | 2024-08-04 08:29 | XMS_ITS | Encounter Summary ---
Author Organization [facility] [facility] Address [address] [facility] 7t [place] [address] Care Team Providers Care Security Assurance Specialist Name Role Phone Emperatriz Stoll Primary Care Provider +7 Rosa Deluca PharmD Unavailable [phone] Name, Joey MERINO Primary Care Provider [phone] Reason for Referral * Consultation (Routine) - Closed Specialty Diagnoses / Procedures Referred By Justina willis Referred To Contact Nutrition Diagnoses Controlled type 2 diabetes mellitus without complication, with long-term current use of insulin (CMS/HCC) Emperatriz Stoll FNP [address] [place] [address] Phone: tel: fax: Referral ID Status Reason Start Date Expiration Date V isits Requested Visits Authorized [id number] Closed Specialty Services Required 11/06/2023 11/05/2024 1 1 Encounter Details Date Type Department Care Team (Late st Contact Info) Description 11/06/2023 Orders Only [facility] [address] [place] [address] Emperatriz Stoll FNP [address] [place] [address] Controlled type 2 diabetes mellitus without complication, [...] Description 08/06/2024 9:30 AM EST Medication Management [facility] MEDICINE [address] [place] [address] Rosa Deluca, PharmD [address] [place] [address] 08/25/2024 9:00 AM EDT Clinical Support [facility] MEDICINE [address] [place] [address] Remedios Calderon, KYLER 10/16/2024 10:00 AM EDT Office Visit [facility] ADULT DENTAL [address] [place] [address] Cassi Simms [address] [place] [address] Scheduled Referrals Name Type Priority Associated Diagnoses [...] documented as of this encounter Care Teams Security Assurance Specialist Relationship Specialty Start Date End Date Emperatriz Stoll FNP [address] [place] [address] PCP - General Family Medicine 07/19/22 02/05/24 Joey Barreto MD [address] [place] [address] PCP - General Internal Medicine 02/06/24 Rosa Deluca PharmD [address] [place] [address] Pharmacist Internal Medicine 12/03/23 documented as of this encounter
--- OUTSIDE RECORDS SUMMARY | 2024-08-04 08:29 | XMS_ITS | Encounter Summary ---
Author Organization [employer] Address [address] [facility] [address] 7t [place] [address] Care Team Providers Care Steel Tester Name Role Phone Emperatriz Stoll Primary Care Provider +0 Rosa Deluca PharmD Unavailable [phone] Name, Joey MERINO Primary Care Provider [phone] Reason for Visit * Reason Comments Med Refill Encounter Details Date Type Department Care Team ([facility] st Contact Info) Description 2023 Refill [facility] [address] [place] [address] Emperatriz Stoll FNP [address] [place], [place] [phone] Social History Tobacco Use Types Packs/Day Years [...] Description 08/06/2024 9:30 AM EST Medication Management [facility] [address] [place] [address] Rosa Deluca, DamionD [address] [place] [address] 08/25/2024 9:00 AM EDT Clinical Support [facility] [address] [place] [address] Remedios Calderon RN 10/16/2024 10:00 AM EDT Office Visit [facility] ADULT DENTAL [address] [place] [address] Cassi Simms [address] [place] [address] documented as of this encounter Goals Goal [...] documented as of this encounter Care Teams Steel Tester Relationship Specialty Start Date End Date Emperatriz Stoll FNP [address] [place] [address] PCP - General Family Medicine 07/19/22 02/05/24 Name, MD Joey 230 [place] [address] PCP - General Internal Medicine 02/06/24 Rosa Deluca, DamionD 230 [place] [address] Pharmacist Internal Medicine 12/03/23 documented as of this encounter
--- OUTSIDE RECORDS SUMMARY | 2024-08-04 08:30 | XMS_ITS | Encounter Summary ---
Author Organization [facility] Address [address] [facility] [address] [place] [address] Phone Care Team Providers Care Identification Officer Name Role Phone Name, Joey MERINO Primary Care Provider [phone] Encounter Details Date Type Department Care Team (Late st Contact Info) Description 07/22/2024 Documentation Only [facility] [address] [phone] Anali Neely [place] [address] [facility] [address] [place] [address] Social History Tobacco Use Types [...] Office Visit [facility] [address] [phone] Patricia Fulton ARNP [address] [address] 01/12/2025 1:15 PM EDT Office Visit [facility] [address] [phone] Kevin Gates MD [address] [address] documented as of this encounter Procedures Procedure Name Priority Date/Time Associated Diagnosis Comments EXT RESULT ENTRY Routine 07/22/2024 documented in this encounter Results * (ABNORMAL) EXT RESULT ENTRY (07/22/2024) Sodium 142 137 - 147 Potassium 5.2 3.4 - 5.5 Carbon Dioxide 25 mmol/L BUN 29(A) 4 - 21 mg/dL Creatinine 1.82(A) 0.60 - 1.30 mg/dL eGFR Non-Afr Mozambican 38 07/22/2024 us Historical Provider LAB BLOOD ORDERABLES Malena l Result documented in this encounter Visit Diagnoses Not on filedocumented in this encounter Care Teams Identification Officer Relationship Specialty Start Date End Date Name, MD Joey [address] [place] [address] PCP - General Internal Medicine 07/16/24 documented as of this encounter
--- OUTSIDE RECORDS SUMMARY | 2024-08-04 08:30 | XMS_ITS | Encounter Summary ---
Author Organization [facility] Address [address] [address] Phone Care Team Providers Care Family Preservation Worker Name Role Phone Name, Joey MERINO Primary Care Provider [phone] Encounter Details Date Type Department Care Team (Late st Contact Info) Description 07/23/2024 Orders Only [facility] [address] [place] [phone] Patricia Fulton ARNP [address] [address] Chronic kidney disease, stage 4 [...] Office Visit [facility] [address] [phone] Patricia Fulton ARNP [address] [address] 01/12/2025 1:15 PM EDT Office Visit [facility] [address] [address] Kevin Gates MD [address] [phone] documented as of this encounter Visit Diagnoses Diagnosis Chronic kidney disease, stage 4 (severe) (HCC) Hypertension Hyperkalemia documented in this encounter Care Teams Family Preservation Worker Relationship Specialty Start Date End Date Name, MD Joey [address] [place] [address] PCP - General Internal Medicine 07/16/24 documented as of this encounter
--- OUTSIDE RECORDS SUMMARY | 2024-08-04 08:30 | XMS_ITS | Clinical Summary ---
Author Organization [facility] Address [address] [place] [address] Phone Care Team Providers Care Cloth Worker Name Role Phone Name, Joey MERINO Primary Care Provider [phone] Allergies No known active allergies Medications amLODIPine [...] packIndications: Chronic kidney disease, stage 4 (severe) ([facility]),Hypertensi on,Hyperkalemia Take 1 packet by mouth [...] Encounters Date Type Department Care Team Description 08/04/2024 Orders Only [facility] [address] [place] [address] Kevin Gates MD Chronic kidney disease, stage 4 (severe) (HCC); Renal osteodystrophy 07/23/2024 Orders Only [facility] [address] [phone] Patricia Fulton ARNP Chronic kidney disease, stage 4 (severe) (HCC); Hypertension; Hyperkalemia 07/22/2024 Documentation Only [facility] [address] [phone] Anali Neely [place] 07/16/2024 3:15 PM EST Office Visit [facility] [address] [phone] Patricia Fulton ARNP Chronic kidney disease, stage 4 (severe) (HCC) (Primary Dx); Hypertension; Renal osteodystrophy; Hyperkalemia 05/19/2024 Refill [facility] [address] [place] [phone] Kevin Gates MD from Last 3 Months [...] Visit [facility] [address] [place] [phone] Patricia Fulton ARNP [address] [phone] 01/12/2025 1:15 PM EDT Office Visit [facility] [address] [address] Kevin Gates MD [address] [phone] Health Maintenance Due Date Last Done Comments [...] 1.82(A) 0.60 - 1.30 mg/dL eGFR Non-Afr Turkish 38 07/22/2024 Historical Provider LAB BLOOD ORDERABLES Malena l Result from Last 3 Months Insurance [facility] ONE CARE DUAL SNP ([id number]) [place] [address] CARE DUAL SNP ([id number]) [place] [id number] Care Teams Cloth Worker Relationship Specialty Start Date End Date Name, MD Joey [address] [place] [address] PCP - General Internal Medicine 07/16/24
== END 2024-08-04 09:01 | disposition home or self-care (01) ==
PROVIDERS: PCP Nurse Practitioner Family; Visit Provider Nurse Practitioner Family
DX: E11.69 Type 2 diabetes mellitus with other specified complication (principal); N52.1 Erectile dysfunction due to diseases classified elsewhere; Z13.9 Encounter for screening, unspecified
CPT/HCPCS: 99213; G2211

== ENCOUNTER → 2024-08-04 08:17 | Outpatient (BNVA) | payer OTHER, SELFPAY | PROVIDERS: PCP Nurse Practitioner Family; Visit Provider Nurse Practitioner Family | DX: E11.69 Type 2 diabetes mellitus with other specified complication (principal); N52.1 Erectile dysfunction due to diseases classified elsewhere | CPT/HCPCS: 81003; 99212 ==

== ENCOUNTER 2024-09-09 13:48 | Outpatient (REF) | payer OTHER, SELFPAY ==
[2024-09-09 16:16] LABS: Appearance Urine Clear; Color Urine Yellow; Glucose Urine UA >=1000 mg/dL (Negative); Leukocyte Esterase Urine Negative (Negative); Nitrite Urine Negative (Negative); Specific Gravity - Urine 1.015 (1.005-1.025); UMIC TRIGGER UACC YES; Urine Blood Moderate (2+) (Negative); Urine Ketones Negative (Negative); Urine Protein Negative (Neg-Trace)
[2024-09-09 16:28] LABS: Bacteria Urine None Seen (None Seen); RBC Urine 0-2 /HPF (0-2); Squamous Epithelial Cell Urine 0-2 /HPF (0-2); WBC Urine 0-5 /HPF (0-5)
--- OUTSIDE RECORDS SUMMARY | 2024-09-09 16:52 | XMS_ITS | Encounter Summary ---
Author Organization [employer] [facility] Address [address] 7t [place] [address] Care Team Providers Care Atm Mechanic Name Role Phone Emperatriz Stoll Primary Care Provider +8 Rosa Deluca PharmD Unavailable [phone] Name, Joey MERINO Primary Care Provider [phone] Reason for Visit * Reason Comments Med Refill Encounter Details Date Type Department Care Team ([facility] st Contact Info) Description 01/12/2023 Refill [facility] [address] [place] [address] Emperatriz Stoll FNP [address] [place], [place] [phone] Other chronic pain Social History Tobacco Use [...] Care Team (Late st Contact Info) Description 10/07/2024 9:30 AM EDT Medication Management [facility] 230 [place] [address] Rosa Deluca PharmD 230 [place] [address] 10/15/2024 11:00 AM EDT Office Visit [facility] ADULT DENTAL 230 [place] [address] Mendez, Cassi 230 [place] [address] 11/21/2024 9:00 AM EDT Office Visit [facility] [address] [place] [address] Joey Barreto MD [address] [place] [address] documented as of this encounter Visit Diagnoses Diagnosis Other chronic pain documented in this encounter Additional Health Concerns Assessment Noted Time PHQ-9 Depression Total Score: 0 12/14/19 11:09 AM EDT documented as of this encounter Care Teams Atm Mechanic Relationship Specialty Start Date End Date Emperatriz Stoll FNP [address] [place] [address] PCP - General Family Medicine 07/19/22 02/05/24 Joey Barreto MD [address] [place] [address] [phone] PCP - General Internal Medicine 02/06/24 Rosa Deluca PharmD [address] [place] [address] Pharmacist Internal Medicine 12/03/23 documented as of this encounter
--- OUTSIDE RECORDS SUMMARY | 2024-09-09 16:52 | XMS_ITS | Encounter Summary ---
Author Organization [employer] Address [address] [facility] [address] 7t [place] [address] Care Team Providers Care Freelance Copywriter Name Role Phone Emperatriz Stoll Primary Care Provider + Rosa Deluca PharmD Unavailable [phone] Name, Joey MERINO Primary Care Provider [phone] Reason for Visit * Reason Comments Med Refill Encounter Details Date Type Department Care Team ([facility] st Contact Info) Description 05/01/2023 Refill [facility] 230 [place] [address] Emperatriz Stoll FNP [address] [place], [place] [phone] Primary hypertension Social History Tobacco Use Types [...] Description 10/07/2024 9:30 AM EDT Medication Management [facility] [address] [place] [address] Rosa Deluca, PharmD [address] [place] [address] 10/15/2024 11:00 AM EDT Office Visit [facility] ADULT DENTAL [address] [place] [address] Jeanmarie Simmsaris [address] [place] [address] 11/21/2024 9:00 AM EDT Office Visit [facility] [address] [place] [address] Name, MD Joey [address] [place] [address] documented as of this encounter Goals Goal Patient Goal Type Associated Problems Recent Progress Patient-Stated? Author Blood Pressure < 140/90 Blood Pressure 109/62(2024 1:18 PM EDT) No Donald Johnson Hemoglobin A1c < 7.5 Result Component 6(07/14/2024 9:46 AM EST) No Donald Johnson documented as of this encounter Visit Diagnoses Diagnosis Primary hypertension Unspecified essential hypertension documented in this encounter Additional Health Concerns Assessment Noted Time PHQ-9 Depression Total Score: 0 12/14/19 23 11:09 AM EDT documented as of this encounter Care Teams Freelance Copywriter Relationship Specialty Start Date End Date Emperatriz Stoll FNP 230 [place] [address] PCP - General Family Medicine 07/19/22 02/05/24 Name, MD Joey 230 [place] [address] PCP - General Internal Medicine 02/06/24 Rosa Deluca, Martha 230 [place] [address] Pharmacist Internal Medicine 12/03/23 documented as of this encounter
--- OUTSIDE RECORDS SUMMARY | 2024-09-09 16:52 | XMS_ITS | Encounter Summary ---
Author Organization [facility] Address [address] [facility] [address] 7t [place] [address] Care Team Providers Care Car Seat Upholsterer Name Role Phone Emperatriz Stoll Primary Care Provider +1 Rosa Deluca PharmD Unavailable [phone] Name, Joey MERINO Primary Care Provider [phone] Encounter Details Date Type Department Care Team ([facility] st Contact Info) Description 10/20/2022 Orders Only [facility] 230 [place] [address] Emperatriz Stoll FNP [address] [place], [place] [phone] Other chronic pain Social History Tobacco Use [...] Description 10/07/2024 9:30 AM EDT Medication Management [facility] [address] [place] [address] Rosa Deluca, PharmD 230 [place] [address] 10/15/2024 11:00 AM EDT Office Visit [facility] ADULT DENTAL [address] [place] [address] Mendez Cassi [address] [place] [address] 11/21/2024 9:00 AM EDT Office Visit [facility] [address] [place] [address] Joey Barreto MD 230 [place] [address] documented as of this encounter Procedures Procedure Name Priority Date/Time Associated Diagnosis Comments XR CHEST 2 VIEWS Routine 11/17/2022 4:30 PM EDT documented in this encounter Results * XR Chest 2 Views (11/17/2022 4:30 PM EDT) Anatomical Region Laterality Modality Chest Radiographic Mony ging 11/17/2022 4:30 PM EDT Narrative 11/24/2022 2:21 PM EDT ?[facility] ?[address] [facility] [address] ?[place] [id number] ?XRay Report ? Signed ? Patient: Dewitt,Efrain ?MR#: [id number] ? : 1960 ?Acct:[id number] ? Age/Sex: 61 / M ?ADM Date: 06/16/23 ? Loc: HO.HHCX ? Attending Dr: Emperatriz Stoll JOURNAL BOX INSPECTOR ? Ordering Physician: Emperatriz Stoll JOURNAL BOX INSPECTOR ?? Date of Service: 11/17/22 ?? Procedure(s): XR chest 2V ?? Accession Number(s): [id number] ? cc: Emperatriz Stoll JOURNAL BOX INSPECTOR ? EXAMINATION: ?? XR CHEST ? CLINICAL [...] 1418 ? DD/ 1630 ? TD/TT: ? Reinforcement Maker: DAVID ? Procedure Note Nahed, Image - 11/29/[address] [address] XRay Report Signed Patient: Efrain DewittMR#: [id number] : 1Acct:[id number] Age/Sex: 61 / MADM Date: 11/17/22 Loc: HO.HHCX Attending Dr: Emperatriz Stoll JOURNAL BOX INSPECTOR Ordering Physician: Emperatriz Stoll NP Date of Service: 11/17/22 Procedure(s): XR chest 2V Accession Number(s): [id number] cc: Emperatriz Stoll JOURNAL BOX INSPECTOR EXAMINATION: XR CHEST CLINICAL INFORMATION: Bilateral lower [...] in OV> 11/24/22 1418 DD/ 1630 TD/TT: Reinforcement Maker: DAVID [facility] External Provider IMG XR PROCEDURES Final Result documented in this encounter Visit Diagnoses Diagnosis Other chronic pain documented in this encounter Additional Health Concerns Assessment Noted Time PHQ-9 Depression Total Score: 7 07/19/19 23 3:07 PM EST documented as of this encounter Care Teams Car Seat Upholsterer Relationship Specialty Start Date End Date Emperatriz Stoll FNP [address] [place] [address] PCP - General Family Medicine 07/19/22 02/05/24 Name, MD Joey [address] [place] [address] PCP - General Internal Medicine 02/06/24 Rosa Deluca, DamionD 230 [place] [address] Pharmacist Internal Medicine 12/03/23 documented as of this encounter
--- OUTSIDE RECORDS SUMMARY | 2024-09-09 16:52 | XMS_ITS | Encounter Summary ---
Author Organization [employer] Address [address] 7t [place] [address] Care Team Providers Care Customer Service Coordinator Name Role Phone Emperatriz Stoll Primary Care Provider +7 Rosa Deluca PharmD Unavailable [phone] Name, Joey MERINO Primary Care Provider [phone] Encounter Details Date Type Department Care Team (Late st Contact Info) Description 04/06/[address] [facility] [address] [place] [address] Emperatriz Stoll FNP [address] [place] [address] Social History Tobacco Use Types Packs/Day Years [...] Description 10/07/2024 9:30 AM EDT Medication Management [facility] [address] [place] [address] Rosa Deluca PharmD [address] [place] [address] 10/15/2024 11:00 AM EDT Office Visit [facility] ADULT DENTAL [address] [place] [address] Cassi Simms 230 [place] [address] 11/21/2024 9:00 AM EDT Office Visit [facility] [address] [place] [address] Name, MD Joey [address] [place] [address] documented as of this encounter Goals Goal [...] documented as of this encounter Care Teams Customer Service Coordinator Relationship Specialty Start Date End Date Emperatriz Stoll FNP 230 [place] [address] PCP - General Family Medicine 07/19/22 02/05/24 Name, MD Joey 230 [place] [address] PCP - General Internal Medicine 02/06/24 Rosa Deluca, Martha [address] [place] [address] Pharmacist Internal Medicine 12/03/23 documented as of this encounter
--- OUTSIDE RECORDS SUMMARY | 2024-09-09 16:53 | XMS_ITS | Patient Health Record ---
Author Organization [facility] Address [address] [facility] [address] [place] [address] Care Team Providers Care Sales And Service Agent Name Role Phone FAUZIA (ODETTEMICHELLE) VICENTE MERINO [...] Problem Hyperkalemia (E87.5) Active confirmed H yperkalemia (01618052) Problem Metabolic acidemia (E87.2) Active confirmed Acidosis (25302862) Problem HTN (hypertension) (I10) Active confirmed Hypertension (97326596) Problem CAD (coronary artery disease) (I25.10) Active confirmed Coronary a rtery disease (41155038) Problem Anemia of renal disease (D63.1) Active confirmed Anemia of re nal disease (884629405) Problem DM (diabetes mellitus) (E11.9) Active confirmed DM - Diabe raymundo mellitus (07860911) Problem Diabetic retinopathy (E11.319) Active confirmed Diabetic retino marina (5402524) Problem Hyperphosphatemia (E83.39) Active confirmed Hyperphosphatem ia (82855683) Problem Secondary hyperparathyroidism (N25.81) Active confirmed Secondary hyperparathyroidism (35600192) Problem Vitamin D insufficiency (E55.9) Active confirmed 05267335 Problem Proteinuria (R80.9) Active confirmed Pr oteinuria (12962754) Problem Hyperlipidemia (E78.5) Active confirmed Hyperlipidemia (70625737) Problem Pneumococcal vaccine administered (Z23) Active confirmed Requires vaccination (753034692) Problem CKD stage G3b/A3, GF R 30-44 and albumin creatinine ratio >300 mg/g (N18.32) Active confirmed Chronic kidney disease stage 3B (disorder) (584794073) PLAN OF TREATMENT Pending Test Test Name [...] Insured Coverage Start Date Coverage End Date [facility] [address] [address] [place] [address] [id number] ELAINE FLEMING Self - patient is the insured Medicaid Secondary [address] [place], [place] [id number] ELAINE FLEMING Self - patient is the insured 9 MEDICAL (GENERAL) HISTORY Medical History History ICD Code Hypertension Diabetes High cholesterol Angina Depression Hyperkalemia E87.5 Hypokalemia E87.6 COVID-19 U07.1 Surgical History Surgery Date(Month/Year) Cataract (bilateral) cataract surgery , rt 03/2019 Eye surgery 05/2013 Heart Catherization w stent placecement 03/2017 Heart Catherization 11/2017 Eye Laser Surgery 11/2017 Hospitalization History Reason Date(Month/Year) chest pain @restorationist 11/2019
--- OUTSIDE RECORDS SUMMARY | 2024-09-09 16:53 | XMS_ITS | Clinical Summary ---
Author Organization [facility] Address [address] [place] [address] Phone Care Team Providers Care Coding Assistant Name Role Phone Name, Joey MERINO Primary Care Provider [phone] Allergies No known active allergies Medications carvedilol (COREG) 12.5 MG tablet Take 12.5 [...] MORNING 90 tablet 2 05/19/20 24 Active sacubitril-vals shahzad (Entresto) 24-26 MG per tablet Take 1 tablet by mouth in the morning and 1 tablet in the evening. Active Ascorbic Acid (vitamin C) 500 MG tablet Take 500 mg by mouth 1 (one) time each day Active Icosapent Ethyl 1 g capsule Take by mouth Acti ve Semaglutide (OZEMPIC, 0.25 OR 0.5 MG/DOSE, SC) Inject under the skin Active amLODIPine (NORVASC) 10 MG tablet Take 10 mg by mouth in the morning. 07/19/19 23 025 Discontin ued(Med List Maintenan ce) ezetimibe (ZETIA) 10 MG tablet Take 10 mg by mouth 1 (one) time each day 025 Discontin ued(Med List Maintenan ce) Active [...] Encounters Date Type Department Care Team Description 08/12/2024 4:30 PM EDT Office Visit [facility] [address] [phone] Patricia Fulton ARNP Stage 3b chronic kidney disease (HCC) (Primary Dx); Hypertension; Hyperkalemia 08/04/2024 Orders Only [facility] [address] [place] [address] Kevin Gates MD Chronic kidney disease, stage 4 (severe) (HCC); Renal osteodystrophy 07/23/2024 Orders Only [facility] [address] [phone] Patricia Fulton ARNP Chronic kidney disease, stage 4 (severe) (HCC); Hypertension; Hyperkalemia 07/22/2024 Documentation Only [facility] [address] [phone] Anali Neely MA 07/16/2024 3:15 PM EST Office Visit [facility] [address] [phone] Patricia Fulton ARNP Chronic kidney disease, stage 4 (severe) (HCC) (Primary Dx); Hypertension; Renal osteodystrophy; Hyperkalemia from Last 3 Months Immunizations Name Administration [...] Sign Reading Time Taken Comments Blood Pressure 100/60 08/12/2024 4:36 PM EDT Pulse 68 08/12/2024 4:36 PM EDT Temperature - - Respiratory Rate - - Oxygen Saturation 98% 03/06/2024 12:54 PM EDT Inhaled Oxygen Concentration - - Weight 83.5 kg (184 lb) 08/12/2024 4:36 PM EDT Height - - Body Mass Index - - Plan of Treatment Upcoming Encounters Date Type Department Care Team (Late st Contact Info) Description 12/15/2024 1:00 PM EDT Office Visit [facility] [address] [place] [phone] Kevin Gates MD [address] [phone] 01/12/2025 1:15 PM EDT Office Visit [facility] [address] [phone] Kevin Gates MD [address] [phone] Health Maintenance Due Date Last Done Comments Colorectal Cancer Screening: Annual FOBT 2009 Colorectal Cancer Screening: Colonoscopy 2009 Colorectal Cancer Screening: Sigmoidoscopy 2009 Diabetes: Ophthalmology Exam 07/31/2022 Diabetes: Pedal Pulse Checked 07/31/2022 Diabetes: Sensory Foot Exam 07/31/2022 Diabetes: Visual Foot Exam 07/31/2022 Hepatitis B Vaccine (3 of 3 - 19+ 3-dose series) 08/19/2024 06/24/2024, 01/01/2024 Diabetes: Hemoglobin A1C 10/11/2024 025, 05/12/2024, 12/04/2023, Additional history exists Pneumococcal Vaccine: Pediat rics (0 to 5 Years) and At-Risk Patients (6 to 64 Years) Completed 01/07/2024 Influenza Vaccine Completed 08/06/2024 Procedures Procedure Name Priority Date/Time Associated Diagnosis Comments BASIC METABOLIC PANEL Routine 08/11/2024 10:20 AM EDT Chronic kidney disease, stage 4 (severe) (HCC) Hypertension Hyperkalemia EXT RESULT ENTRY Routine 07/22/2024 EXT RESULT ENTRY Routine 07/08/2024 from Last 3 Months Results * (ABNORMAL) Basic metabolic panel (08/11/2024 10:20 AM EDT) Glucose 72 70 - 99 mg/dL [facility] BUN 25 8 - 27 mg/dL [facility] Creatinine 2.16(H) 0.76 - 1.27 mg/dL [facility] eGFR CKD-EPI CR 2020 34(L) >59 mL/min/1.7 3 [facility] BUN/Creatinine Ratio 12 10 - 24 [facility] Sodium 141 134 - 144 mmol/L [facility] Potassium 4.8 3.5 - 5.2 mmol/L [facility] Chloride 102 96 - 106 mmol/L [facility] Bicarbonate (CO2) 21 20 - 29 mmol/L [facility] Calcium 8.9 8.6 - 10.2 mg/dL [facility] Blood (Blood, Venous) 08/11/2024 10:20 AM EDT 08/11/2024 Patricia Fulton [facility] LAB BLOOD ORDERABLES Final Result [facility] [address] [place] [address] * (ABNORMAL) EXT RESULT ENTRY (07/22/2024) Only the most recent of2 resultswithin the time period is included. Sodium 142 137 - 147 Potassium 5.2 3.4 - 5.5 Carbon Dioxide 25 mmol/L BUN 29(A) 4 - 21 mg/dL Creatinine 1.82(A) 0.60 - 1.30 mg/dL eGFR Non-Afr Danish 38 07/22/2024 Historical Provider LAB BLOOD ORDERABLES Malena l Result from Last 3 Months Insurance [facility] ONE CARE DUAL SNP ([id number]) [place] [id number] [facility] ONE CARE DUAL SNP ([id number]) [place] [id number] Care Teams Coding Assistant Relationship Specialty Start Date End Date Name, MD Joey [address] [place] [address] PCP - General Internal Medicine 07/16/24
--- OUTSIDE RECORDS SUMMARY | 2024-09-09 16:53 | XMS_ITS | Encounter Summary ---
Author Organization [employer] Address [address] [place] [address] Care Team Providers Care Railroad Car Loader Name Role Phone Emperatriz Stoll Primary Care Provider + Rosa Deluca PharmD Unavailable [phone] Name, Joey MERINO Primary Care Provider [phone] Reason for Visit * Reason Comments Med Refill Encounter Details Date Type Department Care Team ([facility] st Contact Info) Description 2023 Refill [facility] [address] [place] [address] Emperatriz Stoll FNP [address] [place], [place] [phone] Social History Tobacco Use Types Packs/Day Years [...] Description 10/07/2024 9:30 AM EDT Medication Management [facility] [address] [place] [address] Rosa Deluca, PharmD [address] [place] [address] 10/15/2024 11:00 AM EDT Office Visit [facility] ADULT D[facility]AL [address] [place] [address] Cassi Simms [address] [place] [address] 11/21/2024 9:00 AM EDT Office Visit [facility] [address] [place] [address] Name, MD Joey [address] [place] [address] documented as of this encounter Goals Goal Patient Goal Type Associated Problems Recent Progress Patient-Stated? Author Blood Pressure < 140/90 Blood Pressure 109/62(2024 1:18 PM EDT) Donald Biggs Hemoglobin A1c < 7.5 Result Component 6(07/14/2024 9:46 AM EST) No Donald Johnson documented as of this encounter Visit Diagnoses Not on filedocumented in this encounter Additional Health Concerns Assessment Noted Time PHQ-9 Depression Total Score: 0 07/12/20 23 11:09 AM EDT documented as of this encounter Care Teams Railroad Car Loader Relationship Specialty Start Date End Date Emperatriz Stoll FNP [address] [place] [address] PCP - General Family Medicine 07/19/22 02/05/24 Name, MD Joey [address] [place] [address] PCP - General Internal Medicine 02/06/24 Rosa Deluca, DamionD [address] [place] [address] Pharmacist Internal Medicine 12/03/23 documented as of this encounter
--- OUTSIDE RECORDS SUMMARY | 2024-09-09 16:53 | XMS_ITS | Encounter Summary ---
Author Organization [facility] Address [address] [place] [address] Phone Care Team Providers Care Rail Flaw Detector Operator Name Role Phone Name, Joey MERINO Primary Care Provider [phone] Encounter Details Date Type Department Care Team (Late st Contact Info) Description 08/09/2022 Telephone [facility] [address] [place] [address] Patricia Deras Social History Tobacco [...] Office Visit [facility] [address] [phone] Kevin Gates MD [address] [phone] 01/12/2025 1:15 PM EDT Office Visit [facility] [address] [phone] Kevin Gates MD [address] [phone] documented as of this encounter Visit Diagnoses Not on filedocumented in this encounter Care Teams Rail Flaw Detector Operator Relationship Specialty Start Date End Date Name, MD Joey [address] [place] [address] PCP - General Internal Medicine 07/16/24 documented as of this encounter
--- OUTSIDE RECORDS SUMMARY | 2024-09-09 16:53 | XMS_ITS | Encounter Summary ---
Author Organization [employer] Address [address] [place] [address] Care Team Providers Care Safety Scientist Name Role Phone Rosa Deluca PharmD Unavailable [phone] Name, Joey MERINO Primary Care Provider [phone] Reason for Visit * Reason Onset Date Comments chart prep 09/08/2024 Encounter Details Date Type Department Care Team ([facility] st Contact Info) Description 09/08/2024 Telephone [facility] [address] [place] [address] Que Moctezuma [place] chart prep Social History Tobacco Use Types Packs/Day Years [...] encounter Miscellaneous Notes * Telephone Encounter - Que [place] - 09/08/2024 2:41 PM EDT Chart Prep Labs: done Images: done Vaccines due: not applicable Referrals: appointment pending Sun10/07/24 9:30 AM [facility] Medicine Rosa Deluca PharmD Cdtm Scheduled Sun08/06/24 9:30 AM [facility] Medicine Rosa Deluca PharmD Cdtm Completed 04/14/24 9:30 AM [facility] Medicine Damion KelseyD Cdtm Completed Sun04/01/24 10:00 AM [facility] Medicine Rosa Deluca PharmD Cdtm Canceled Screenings: colorectal cancer screening Overdue care gaps: Glucose documented in this encounter Plan of Treatment Upcoming Encounters Date Type Department Care Team (Late st Contact Info) Description 10/07/2024 9:30 AM EDT Medication Management [facility] [address] [place] [address] Rosa Deluca PharmD [address] [place] [address] 10/15/2024 11:00 AM EDT Office Visit [facility] ADULT DENTAL [address] [place] [address] Jeanmarie Simmsaris [address] [place] [address] 11/21/2024 9:00 AM EDT Office Visit [facility] [address] [place] [address] Name, MD Joey [address] [place] [address] documented as of this encounter Goals Goal [...] documented as of this encounter Care Teams Safety Scientist Relationship Specialty Start Date End Date Name, MD Joey [address] [place] [address] PCP - General Internal Medicine 02/06/24 Rosa Deluca, Martha [address] [place] [address] Pharmacist Internal Medicine 12/03/23 documented as of this encounter
--- OUTSIDE RECORDS SUMMARY | 2024-09-09 16:53 | XMS_ITS | Encounter Summary ---
Author Organization [employer] Address [address] [facility] 7t [place] [address] Care Team Providers Care Artillery Maintenance Supervisor Name Role Phone mEperatriz Stoll Primary Care Provider [phone] Rosa Deluca PharmD Unavailable [phone] Name, Joey MERINO Primary Care Provider [phone] Reason for Referral * Consultation (Routine) - Closed Specialty Diagnoses / Procedures Referred By Justina willis Referred To Contact Nutrition Diagnoses Controlled type 2 diabetes mellitus without complication, with long-term current use of insulin (CMS/HCC) Emperatriz Stoll FNP [address] [place] [address] Phone: tel: fax: Referral ID Status Reason Start Date Expiration Date V isits Requested Visits Authorized [id number] Closed Specialty Services Required 11/06/2023 11/05/2024 1 1 Encounter Details Date Type Department Care Team (Late st Contact Info) Description 11/06/2023 Orders Only [facility] [address] [place] [address] Emperatriz Stoll FNP [address] [place] [address] Controlled type 2 diabetes mellitus without complication, [...] Description 10/07/2024 9:30 AM EDT Medication Management [facility] MEDICINE [address] [place] [address] Rosa Deluca, PharmD [address] [place] [address] 10/15/2024 11:00 AM EDT Office Visit [facility] ADULT DENTAL [address] [place] [address] Cassi Simms [address] [place] [address] 11/21/2024 9:00 AM EDT Office Visit [facility] [address] [facility] [place] [address] [place] [address] Scheduled Referrals Name Type Priority Associated Diagnoses Orde r Schedule Referral to Nutrition Therapy Outpatient Referral Routine Controlled type 2 diabetes mellitus without complication, with long-term current use of insulin (CMS/[facility]) Expected: 11/06/2023 (Approximate), Expires: 11/05/2024 documented as [...] complication, with long-term current use of insulin (CMS/[facility])- Primary documented in this encounter Additional Health Concerns Assessment Noted Time PHQ-9 Depression Total Score: 0 12/14/19 23 11:09 AM EDT documented as of this encounter Care Teams Artillery Maintenance Supervisor Relationship Specialty Start Date End Date Emper[place]riz [place] [address] PCP - General Family Medicine 07/19/22 02/05/24 [place] [address] PCP - General Internal Medicine 02/06/24 Rosa Deluca PharmD [address] [place] [address] Pharmacist Internal Medicine 12/03/23 documented as of this encounter
--- OUTSIDE RECORDS SUMMARY | 2024-09-09 16:53 | XMS_ITS | Encounter Summary ---
Author Organization [facility] Address [address] [facility] [place] [address] Care Team Providers Care Exhibits Curator Name Role Phone Emperatriz Stoll Primary Care Provider [phone] Rosa Deluca PharmD Unavailable [phone] Name, Joey MERINO Primary Care Provider [phone] Encounter Details Date Type Department Care Team ([facility] Contact Info) Description 08/21/2022 Orders Only [facility] [address] [place] [address] Emperatriz Stoll FNP [address] [place], [place] [phone] Social History Tobacco Use Types Packs/Day Years [...] Department Care Team (Late Contact Info) Description 10/07/2024 9:30 AM EDT Medication Management [facility] [address] [place] [address] Rosa Deluca PharmD [address] [place], [place] 10/15/2024 11:00 AM EDT Office Visit [facility] ADULT DENT[facility] [address] [place] [address] Mendez, Cassi [address] [place] [address] 11/21/2024 9:00 AM EDT Office Visit [facility] [address] [place] [address] Joey Barreto MD [address] [place] [address] documented as of this encounter Visit Diagnoses Not on filedocumented in this encounter Additional Health Concerns Assessment Noted Time PHQ-9 Depression Total Score: 7 07/19/19 23 3:07 PM EST documented as of this encounter Care Teams Exhibits Curator Relationship Specialty Start Date End Date Emperatriz Stoll FNP [address] [place] [address] PCP - General Family Medicine 07/19/22 02/05/24 Joey Barreto MD [address] [place] [address] PCP - General Internal Medicine 02/06/24 Rosa Deluca PharmD [address] [place] [address] Pharmacist Internal Medicine 12/03/23 documented as of this encounter
--- OUTSIDE RECORDS SUMMARY | 2024-09-09 16:53 | XMS_ITS | Encounter Summary ---
Author Organization [employer] Address [address] [place] [address] Care Team Providers Care Custodial Aide Name Role Phone Rosa Deluca PharmD Unavailable [phone] Name, Joey MERINO Primary Care Provider [phone] Encounter Details Date Type Department Care Team (Latest Contact Info) Description 09/09/2024 Travel Social History Tobacco Use Types Packs/Day [...] t he electric, gas, oil or water [employer] threatened to shut off services in your [...] Description 10/07/2024 9:30 AM EDT Medication Management [facility] [address] [place] [address] Rosa Deluca, PharmD [address] [place] [address] 10/15/2024 11:00 AM EDT Office Visit [facility] ADULT D[facility] [address] [place] [address] Mendez, Cassi [address] [place] [address] 11/21/2024 9:00 AM EDT Office Visit [facility] [address] [place] [address] Joey Barreto MD [address] [place] [address] documented as of this encounter Goals Goal [...] documented as of this encounter Care Teams Custodial Aide Relationship Specialty Start Date End Date Joey Barreto MD [address] [place] [address] PCP - General Internal Medicine 02/06/24 Rosa Deluca, Martha [address] [place] [address] Pharmacist Internal Medicine 12/03/23 documented as of this encounter
--- OUTSIDE RECORDS SUMMARY | 2024-09-09 16:53 | XMS_ITS | Clinical Summary ---
Author Organization [employer] Address [address] [facility] [address] [place] [address] Care Team Providers Care Pond Tender Name Role Phone Rosa Deluca PharmD Unavailable [phone] Name, Joey MERINO Primary Care Provider Allergies No known active allergies Medications albuterol [...] in the morning. 1 each 023 Active Lancets (OneTouch Delica Plus [id number]) miscIndications: Type 2 diabetes mellitus without complications ([facility]) USE TO TEST BLOOD SUGAR IN THE MORNING 100 each 12 024 Active Aspirin Low Dose 81 MG chewable tabletIndication s:Presence of coronary angioplasty implant and graft CHEW 1 TABLET BY MOUTH EVERY DAY 90 tablet 3 024 Active BD Pen Needle Danielle U/F 32G X 4 MM miscIndications: Controlled type 2 diabetes mellitus with complication, with long-term current use of insulin (CMS/[facility]) USE DIRECTED ONCE DAILY 100 each 1 024 Active Farxiga 10 MGIndications:Co ntrolled type 2 diabetes mellitus without complication, unspecified whether director long term care insulin use (CMS/[facility]) Take 1 tablet (10 mg) by mouth Once per day. 90 tablet 3 025 2025 Active folic acid (Folvite) 1 MG tabletIndication s:Dietary counseling TAKE 1 TABLET BY MOUTH EVERY MORNING 30 tablet 1 Active Lancet Device miscIndications: Controlled type 2 diabetes mellitus with complication, with long-term current use of insulin ([facility]) Use to test blood sugar as directed 1 each Active ezetimibe (Zetia) 10 MG tablet TAKE 1 TABLET BY MOUTH EVERY MORNING 90 tablet 3 Active Ascorbic Acid (vitamin C) 500 MG tablet TAKE 1 TABLET BY MOUTH EVERY MORNING 30 tablet 2 Active gabapentin (Neurontin) 300 MG capsule TAKE 1 CAPSULE BY MOUTH EVERY MORNING 30 capsule Active traMADol (Ultram) 50 MG tabletIndication s:Other chronic pain Take 1 tablet (50 mg) by mouth every 12 (twelve) hours if needed for severe pain for up to 28 days. Do not start before August 29, 2024. 56 tablet 025 2024 Active insulin glargine (Lantus SoloStar) 100 UNIT/ML penIndications:C ontrolled type 2 diabetes mellitus with complication, with long-term current use of insulin ([facility]) INJECT 22 UNITS SUBCUTANEOUSLY AT BEDTIME 15 mL 3 Active amiodarone (Pacerone) 200 MG tablet Take 1 tablet by mouth 2 times daily. 2024 Active carvedilol (Coreg) 3.125 MG tablet Take 1 tablet by mouth with breakfast and with evening meal. Active Plavix 75 MG tablet Take 1 tablet by mouth Once per day. 2024 Active spironolactone (Aldactone) 25 MG tablet Take 1 tablet by mouth Once per day. 2024 Active tamsulosin (Flomax) 0.4 MG 24 hr capsule Take 1 capsule by mouth Once per day. 2024 Active Continuous Glucose Sensor (FreeStyle Sarina 2 Sensor) [facility] USE DIRECTED AND CHANGE EVERY 14 DAYS 2 each 5 Active semaglutide (Ozempic) 2 MG/1.5ML solution pen-injector Inject 0.5 mg subcutaneously q week 1.5 mL 11 Active lactulose 20 gram/30 mL oral solution Take 30 mL (20 g) by mouth Once per day. 450 mL 3 2025 Active furosemide (Lasix) 20 MG tablet Take 1 tablet (20 mg) by mouth Once per day. 30 tablet 11 2025 Active Kerendia 10 MG tablet Take 1 tablet by mouth in the morning. 024 2024 Discontinued(M ed list cleanup (will not trigger notification to Pharmacy)) glucose blood (FreeStyle Precision Virgil Test) test strip Use to check blood sugar with CGM device as needed 100 each 3 024 2024 ezetimibe (Zetia) 10 MG tablet Take 1 tablet (10 mg) by mouth in the morning. 90 tablet 3 024 2024 Discontinued polyethylene glycol, PEG, 3350 (Glycolax) 17 GM/SCOOP powderIndication s:Other constipation TAKE 17 GM MIXED IN 8 OUNCES OF WATER ONCE DAILY IN THE MORNING 510 g 2 024 2024 Discontinued(M ed list cleanup (will not trigger notification to Pharmacy)) cyanocobalamin (Vitamin B-12) 500 MCG tablet Take as directed: patient purchasing OTC 2024 Discontinued(M ed list cleanup (will not trigger notification to Pharmacy)) carvedilol (Coreg) 12.5 MG tabletIndication s:Primary hypertension TAKE 1 TABLET BY MOUTH TWICE DAILY 180 tablet 1 024 2024 Discontinued(M ed list cleanup (will not trigger notification to Pharmacy)) Entresto 24-26 MG tablet TAKE 1 TABLET BY MOUTH TWICE DAILY IN THE MORNING AND IN THE EVENING 024 2024 Discontinued(M ed list cleanup (will not trigger notification to Pharmacy)) melatonin 3 MG tablet TAKE 1 TABLET BY MOUTH AT BEDTIME NEEDED FOR SLEEP 90 tablet 1 024 2024 Discontinued(M ed list cleanup (will not trigger notification to Pharmacy)) Continuous Glucose Sensor (FreeStyle Sarina 2 Sensor) [facility] TEST BLOOD SUGAR FOUR TIMES DAILY 1 each 024 2024 Discontinued insulin glargine (Lantus SoloStar) 100 UNIT/ML penIndications:C ontrolled type 2 diabetes mellitus with complication, with long-term current use of insulin (CMS/HCC) Inject subcutaneously 22 units once daily 024 2024 Discontinued Semaglutide,0.25 or 0.5MG/DOS, (Ozempic, 0.25 or 0.5 MG/DOSE,) 2 MG/3ML solution pen-injectorIndi cations:Type 2 diabetes mellitus without complication, with long-term current use of insulin (CMS/HCC) INJECT 0.5 MG SUBCUTANEOUSLY EVERY 7 DAYS IN THE ABDOMEN, THIGHS, OR UPPER ARM, ROTATE INJECTION SITES. 3 mL 3 024 2024 Discontinued(D iscontinued by another clinician) gabapentin (Neurontin) 300 MG capsule TAKE 1 CAPSULE BY MOUTH EVERY MORNING 30 capsule 025 2024 Discontinued Ascorbic Acid (vitamin C) 500 MG tablet TAKE 1 TABLET BY MOUTH EVERY MORNING 30 tablet 025 2024 Discontinued Ferrous Sulfate (iron) 325 (65 Fe) MG tablet TAKE 1 TABLET BY MOUTH EVERY MORNING WITH FOOD 30 tablet 025 2024 Discontinued isosorbide mononitrate ER (Imdur) 60 MG 24 hr tablet Take 60 mg by mouth in the morning. 025 2024 Discontinued(M ed list cleanup (will not trigger notification to Pharmacy)) traMADol (Ultram) 50 MG tabletIndication s:Other chronic pain Take 1 tablet (50 mg) by mouth every 12 (twelve) hours if needed for severe pain for up to 28 days. 56 tablet 025 2024 Discontinued(R eorder (will not trigger notification to Pharmacy)) Ferrous Sulfate (iron) 325 (65 Fe) MG tablet TAKE 1 TABLET BY MOUTH EVERY MORNING WITH FOOD 30 tablet 2 025 2024 Discontinued(M ed list cleanup (will not trigger notification to Pharmacy)) Lasix 40 MG tablet Take 1 tablet by mouth Once per day. 025 2024 Discontinued(D ose adjustment) Active Problems Problem Noted Date Diagnosed Date [...] -compressions stockings 20-30 mmHg requested today to [facility] RN -pt has apt w PCP 12/21/2023 [...] Encounters Date Type Department Care Team Description 09/09/2024 1:15 PM EDT Office Visit [facility] [address] [place] [address] Name, MD Joey Type 2 diabetes mellitus with hyperglycemia, with long-term current use of insulin ([facility]) (Primary Dx); Chronic anemia; Drug-induced constipation; Hypotension due to drugs; History of coronary artery bypass graft x 3; Dysuria 09/09/2024 Travel 09/08/[address] [facility] [address] [place] [address] Que Moctezuma [place] chart prep 09/08/[address] [facility] [address] [place] [address] Joey Barreto MD 08/30/2024 Refill [facility] [address] [place] [address] Emperatriz Stoll FNP Controlled type 2 diabetes mellitus with complication, with long-term current use of insulin ([facility]) 08/25/[address] [facility] [address] [place] [address] Rosa Deluca PharmD Other chronic pain 08/25/[address] [facility] [address] [facility] [place] [place] [address] Joey Barreto MD Appointment Request 08/22/[address] [facility] [address] [place] [address] Rosa Deluca PharmFadumo Type 2 diabetes mellitus without complication, with long-term current use of insulin ([facility]) 08/17/[address] [facility] [address] [facility] [place] [address] Joey Barreto MD 08/15/[address] [facility] [address] [facility] [place] [address] Que Moctez[place] may recalls 08/13/[address] [facility] [address] [facility] [place] [address] Emperatriz Stoll FNP 08/08/[address] [facility] [address] [facility] [place] [address] Rosa Deluca PharmD 08/06/2024 10:30 AM EST Immunization [facility] [address] [facility] [place] [address] Suzan Becerra RN Encounter for immunization 08/06/[address] [facility] [address] [facility] [place] [address] Cassi Simms 08/06/2024 Travel 08/06/[address] [facility] [address] [facility] [place] [place] [address] Patricia Thompson, Dietary counseling 07/29/[address] [facility] [address] [place] [address] Joey Barreto MD Other chronic pain 07/16/2024 Orders Only [facility] External Provider, [facility] 07/14/2024 9:45 AM EST Office Visit [facility] [address] [place] [address] Joey Barreto MD Coronary arteriosclerosis (Primary Dx); Controlled type 2 diabetes mellitus with complication, with long-term current use of insulin (CMS/HCC) 07/14/[address] [facility] [address] [place] [address] Patricia Thompson DO 07/14/2024 Travel 06/27/2024 Refill [facility] [address] [place] [address] Joey Barreto MD Other chronic pain 06/24/2024 Travel 06/18/2024 9:30 AM EST Office Visit [facility] [address] [place] [address] Nick, Jenniffer, OD 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 associated with type 2 diabetes mellitus, macular edema presence unspecified (CMS/HCC) (Primary Dx); History of panretinal photocoagulation; Epiretinal membrane (ERM) of both eyes; Macular atrophy, retinal; Pseudophakia of both eyes; Presbyopia of both eyes 06/18/2024 Travel 06/16/[address] [facility] [address] [place] [address] Emperatriz Stoll FNP 06/14/[address] [facility] [address] [place] [address] Joey Barreto MD Dietary counseling from Last 3 Months Immunizations Name Administration Dates Next Due Hep A, Adult 11/07/2023(Deferred: Patient decision - Reports bad reaction with prior vaccines. Declines all vaccines.) HepB-CpG 06/24/2024, 4,09/07/2023(Deferr ed: Patient decision) Influenza, seasonal, injecta ble, preservative free 08/06/2024 Pfizer Covid-19 Vaccine 12+ 05/18/2021 Pfizer Covid-19 Vaccine 12+ Bivalent 06/07/2022 Pneumococcal [...] Sign Reading Time Taken Comments Blood Pressure 109/62 09/09/2024 1:18 PM EDT Pulse 74 09/09/2024 1:18 PM EDT Temperature 37 ??C (98.6 ??F) 09/09/2024 1:18 PM EDT Respiratory Rate 20 09/09/2024 1:18 PM EDT Oxygen Saturation 99% 09/09/2024 1:18 PM EDT Inhaled Oxygen Concentration - - Weight 80.9 kg (178 lb 4 oz) 09/09/2024 1:18 PM EDT Height 165.1 cm (5' 5 ) 09/09/2024 1:18 PM EDT Body Mass Index 29.66 09/09/2024 1:18 PM EDT Plan of Treatment Upcoming Encounters Date Type Department Care Team (Late st Contact Info) Description 10/07/2024 9:30 AM EDT Medication Management [facility] [address] [place] [phone] Rosa Deluca, PharmD [address] [place] [phone] 10/15/2024 11:00 AM EDT Office Visit [facility] AD[facility] [address] [place] [address] Cassi Simms [address] [place] [phone] 11/21/2024 9:00 AM EDT Office Visit [facility] [address] [place] [address] Name, MD Joey [address] [place] [phone] Health Maintenance Due Date Last Done Comments [...] 06/18/2025 06/18/2024, 06/04, 06/18/2024, Additional history exists Dental X-Ray: Full Mouth 08/09/2025 08/08/2022 Tobacco Screening 09/09/2025 09/09/2024 COVID-19 Vaccine Discontinued 06/07/2022, , 10/06/2020 DTaP/Tdap/Td Vaccines Discontinued 01/01/2024 Pneumococcal Vaccine: 50+ Years Completed 01/07/2024 RSV Patients and Patients Aged 60 years or older Discontinued 05/12/2024 Hepatitis B Vaccines Discontinued 06/24/2024, 01/01/20 24 Zoster Vaccines Discontinued 06/24/2024, 01/07/2024 Influenza Vaccine Discontinued 08/06/2024 HIB Vaccines Aged Out No longer eligi ble based on patient's age to complete this topic HPV Vaccines Aged Out No longer eligi ble based on patient's age to complete this topic Hepatitis A Vaccines Discontinued IPV Vaccines Aged Out No longer eligi ble based on patient's age to complete this topic Meningococcal Vaccine Aged Out No danette angie [...] Procedure Name Priority Date/Time Associated Diagnosis Comments URINALYSIS, COMPLETE, WITH REFLEX TO CULTURE Routine 09/09/2024 1:49 PM EDT Dysuria POCT HEMOGLOBIN Routine 09/09/2024 1:20 PM EDT Chronic anemia POCT GLUCOSE Routine 09/09/2024 1:20 PM EDT Type 2 diabetes mellitus with hyperglycemia, with long-term current use of insulin ([facility]) [facility] US CAROTID ARTERY DUPLEX BILATERAL Routine 07/18/2024 8:03 AM EST [facility] US LOWER EXTREMITY VENOUS DUPLEX BILATERAL Routine 07/16/2024 8:50 AM EST POCT GLYCATED HEMOGLOBIN, TOTAL Routine 07/14/2024 9:46 AM EST Controlled type 2 diabetes mellitus with complication, with long-term current use of insulin ([facility]) POCT GLUCOSE Routine 07/14/2024 9:46 AM EST Controlled type 2 diabetes mellitus with complication, with long-term current use of insulin ([facility]) OCT, RETINA - OU - BOTH EYES Routine 06/18/2024 9:30 AM EST Epiretinal membrane (ERM) of both eyes LIPID PANEL, STANDARD Routine 06/02/2024 9:33 AM EST CYTOPATH-CELL ENHANCED Routine 05/06/2024 4:37 [...] Recently Relevant to Health Maintenance Results * (ABNORMAL) Urinalysis, Complete, with Reflex to Culture (09/09/2024 1:49 PM EDT) Color Urine Yellow [facility] Appearance Urine Clear [facility] PH 6.0 5.0 - 9.0 [facility] Glucose Urine UA >=1000(A) Negative mg/dL [facility] Urine Blood Moderate (2+)(A) Negative [facility] Specific [place] - Urine 1.015 1.005 - 1.025 [facility] Urine Protein Negative Neg-Trace mg/dL [facility] Urine Ketones Negative Negative mg/dL [facility] Nitrite Urine Negative Negative [facility] Leukocyte Esterase Urine Negative Negative [facility] RBC Urine 0-2 0 - 2 /HPF [facility] Urine WBC 0-5 0 - 5 /HPF [facility] Urine Squamous Epithelial Cell 0-2 0 - 2 /HPF [facility] Urine Bacteria None Seen None Seen [facility] Hyaline Casts, Urine 3-5 0 - 2 /LPF [facility] Urine 09/09/2024 1:49 PM EDT 09/09/2024 4:09 PM EDT Narrative [facility] - 09/09/2024 4:29 PM EDT Urine, Clean Catch Result Fredrick Barreto MD LAB URINE ORDERABLES Final Resul t [facility] [address] [place] [address] [phone] * (ABNORMAL) POCT Glucose (09/09/2024 1:20 PM EDT) Only the most recent of2 resultswithin the time period is included. Glucose Blood, POC 244(A) 60 - 200 mg/dL QC Media Lot # [id number] Lot# Expiration Date Blood Capillary blood specimen / Unknown 09/09/2024 1:20 PM EDT us Joey Barreto MD POINT OF CARE TEST ENTER/EDIT OR DERABLES Final Result * (ABNORMAL) POCT Hemoglobin (09/09/2024 1:20 PM EDT) Hemoglobin 10.4(A) 13.0 - 17.0 QC Media Lot # [id number] Lot# Expiration Date Blood 09/09/2024 1:20 PM EDT us Joey Barreto MD POINT OF CARE TEST ENTER/EDIT OR DERABLES Final Result * VASC US Carotid Artery Duplex Bilateral (07/18/2024 8:03 AM EST) 07/18/2024 8:03 AM EST Narrative [facility] - 07/18/2024 8:04 AM EST ? [facility] ?[address] ?[place] [address] ? Ultrasound Report ? Signed ? Patient: Dewitt,Efrain ?MR#: [id number] ? : 1960 ?Acct:[id number] ? Age/Sex: 63 / M ?ADM Date: 02/13/25 ? Loc: HO.US ? Attending Dr: Demarcus Portillo MD ? Ordering Physician: Demarcus Portillo MD ?? Date of Service: 07/17/24 ?? Procedure(s): US carotid duplex BI ?? Accession Number(s): [id number] ? cc: Emperatriz Stoll NP; Demarcus Portillo [...] left external carotid arteries. There ?? are prmn-qg-mctmasln atheromatous atheromatous plaques proximal left ?? internal carotid artery mild atheromatous plaques left common carotid ?? artery gjqr-ce-cehyofot atheromatous plaques within the left carotid bulb. [...] by Paul Velarde MD in OV> ? 07/18/24803 ? DD/ 2 ? TD/TT: 07/18/24802 ? Environmental Remediation Engineer: ? Procedure Note Robi Dockery - 07/18/[address] [address] Ultrasound Report Signed Patient: Efrain DewittMR#: [id number] : 1960cct:[id number] Age/Sex: 63 / MADM Date: 07/17/24 Loc: HO.US Attending Dr: Demarcus Portillo MD Ordering Physician: Demarcus Portillo MD Date of Service: 07/17/24 Procedure(s): US carotid duplex BI Accession Number(s): [id number] cc: Emperatriz Stoll MINISTER OF RELIGION; Demarcus Portillo MD CLINICAL HISTORY: atherosclerosis US [...] and left external carotid arteries. There are hpko-ut-esitcpnc atheromatous atheromatous plaques proximal left internal carotid artery mild atheromatous plaques left common carotid artery atrj-od-payamdzm atheromatous plaques within the left carotid bulb. [...] Velarde MD in OV> 07/18/24 0804 DD/ 08 TD/TT: 07/18/24 0803 Environmental Remediation Engineer: us [facility] External Provider CV VASC ULAR PROCEDURES Edited Result - Final [facility] [address] [place] [phone] * VASC US Lower Extremity Venous Duplex Bilateral (07/16/2024 8:50 AM EST) 07/16/2024 8:50 AM EST Narrative [facility] - 07/16/2024 10:13 AM EST ? [facility] ?[address] ?[place] [address] ? Ultrasound Report ? Signed ? Patient: Dewitt,Efrain ?MR#: [id number] ? : 1960 ?Acct:[id number] ? Age/Sex: 63 / M ?ADM Date: 02/12/25 ? Loc: HO.US ? Attending Dr: Demarcus Portillo MD ? Ordering Physician: Demarcus Portillo MD ?? Date of Service: 07/16/24 ?? Procedure(s): US venous duplex LE BI ?? Accession Number(s): [id number] ? cc: Emperatriz Stoll NP; Demarcus Portillo [...] DD/ 0850 ? TD/TT: 07/16/24 0919 ? Environmental Remediation Engineer: ? Procedure Note Donvenecia, Image - 07/16/2024 [place] [address] Ultrasound Report Signed Patient: Efrain DewittMR#: [id number] : 1960cct:[id number] Age/Sex: 63 / MADM Date: 07/16/24 Loc: HO.US Attending Dr: Demarcus Portillo MD Ordering Physician: Demarcus Portillo MD Date of Service: 07/16/24 Procedure(s): US venous duplex LE BI Accession Number(s): [id number] cc: Emperatriz Stoll MINISTER OF RELIGION; Demarcus Portillo MD EXAMINATION: US LOWER EXTREMITY [...] by: Jacoby Piedra MD 07/16/2024 10:10 AM [facility] Dictated By: Jacoby Piedra MD Signed By: <Electronically signed by Jacoby Piedra MD in OV> 07/16/24 1010 DD/ 0850 TD/TT: 07/16/24 0919 Environmental Remediation Engineer: [facility] External Provider CV VASC ULAR PROCEDURES Final Result [facility] [address] [place] [phone] * POCT HGB A1C (07/14/2024 9:46 AM EST) Hemoglobin A1C 6.0 4.0 - 6.0 % QC Media Lot # [id number] Lot# Expiration Date ,747 Blood 07/14/2024 9:46 AM EST us Joey Barreto MD POINT OF CARE TEST [...] Patient already followed by Dr. Abbott at [facility]. He will continue his frequent follow-ups there as scheduled. Will monitor here in 1 year. Jenniffer Romero OD OPHTH TOMOGRAPHY Final Result * (ABNORMAL) Lipid Panel, Standard (06/02/2024 9:33 AM EST) Triglycerides 68 <150 mg/dL [facility] Comment:Desirable Triglyceri de: less than 150 mg/dLBorderline High Triglyceride 150-199 mg/dLHigh Triglyceride: 200-499 mg/dLVery High Triglyceride: greater than or equal to 5OO mg/dL Cholesterol 91 <200 mg/dL [facility] Comment:Desirable Cholestero l: less than 200 mg/dLBorderline High Cholesterol: 200-239 mg/dLHigh Cholesterol: greater than 239 mg/dL LDL Cholesterol Calculated 55 <100 mg/dL [facility] Comment:Desirable LDL: less than 100 mg/dLNear Optimal/Above Optimal LDL: 110- 129 mg/dLBorderline High LDL: 130-159 mg/dLHigh LDL: 160-189 mg/dLVery High LDL: greater than or equal to 190 mg/dL HDL Cholesterol 23(L) >40 mg/dL [facility] Comment:Desirable HDL: great er than 40 mg/dL Note: This HDL assay may give artificially low results in patients with liver disease. 06/02/2024 9:33 AM EST 06/02/2024 9:33 AM EST us Generic External Data Provider LAB BLOOD ORDERAB LES Final Result Performing Organization Address [facility]/State/[facility] Co de Phone Number [facility] [address] [place] [phone] * Cytopath-cell enhanced (05/06/2024 4:37 PM EST) 05/06/2024 4:37 PM EST 05/07/2024 1:25 PM EST Narrative [facility] - 05/09/2024 9:42 AM EST ----- ------- Name: Efrain Dewitt ? Age/Sex: 63/M ? : 1960 Unit#: [id number] ?? Attend Dr: Elmira Mcdonald [facility] ?Re05/06/24 ?Status: DEP REF ? Location: .LAB ?Disch: ? ----- ------- SPEC : [id number] ?RECD: 05/07/24 ? STATUS: ??SOUT ? REQ NUM: [id number] ? ARPAN: 05/06/24 ? SUBM DR: Elmira Mcdonald BI DATA MODELER- ? ENTERED: ??05/07/24 ?SP TYPE: Cytology ? OTHR DR: Emperatriz Stoll MINISTER OF RELIGION ? ORDERED: ??Cyto-enhanced ? Diagnosis ?? Urine: [...] is prepared. Copies To: ?? Emperatriz Stoll MINISTER OF RELIGION ?? [address] ?? [place] [address] ?? [phone] ?? Elmira Mcdonald BI DATA MODELER- ?? [facility] ?? [address] ?? [place] [address] ?? [phone] ?? [email or web address] ----- ------- Signed (signature on file) Jeanmarie Chavez MD 05/09/24 0942 ? ----- ------- ? END OF REPORT ? us Generic External Data Provider LAB CYTOLOGY SPEEDY DONG Final Result [facility] [address] [place] [address] [phone] from Last 3 Months or Most Recently Relevant to Health Maintenance Insurance * Guarantor: Efrain Harrison Account Type Relation to Patient Date of Phone Billing Address Personal/Family Self 1960 [address] [place] [address] [facility] Care Teams Pond Tender Relationship Specialty Start Date End Date Name, MD Joey [address] [place] [address] PCP - General Internal Medicine 02/06/24 Rosa Deluca PharmD [address] [place], [place] Pharmacist Internal Medicine 12/03/23
--- OUTSIDE RECORDS SUMMARY | 2024-09-09 16:53 | XMS_ITS | Encounter Summary ---
Author Organization [employer] Address [address] 7[address] [place] [address] Care Team Providers Care Ordnance Corps Officer Name Role Phone Emperatriz Stoll Primary Care Provider +1 Rosa Deluca PharmD Unavailable [phone] Name, Joey MERINO Primary Care Provider [phone] Reason for Visit * Reason Onset Date Comments Med Refill 08/30/2023 Encounter Details Date Type Department Care Team ([facility] st Contact Info) Description 08/30/2023 Telephone [facility] [address] [place], [place] [phone] Emperatriz Stoll FNP [address] [place], [place] [phone] Med Refill Social History Tobacco Use Types [...] 50 MG tablet To be sent to: [facility] - [place], [place] - [address] [place] [address] documented in this encounter Plan of Treatment Upcoming Encounters Date Type Department Care Team ([facility] st Contact Info) Description 10/07/2024 9:30 AM EDT Medication Management [facility] [address] [place] [address] Rosa Deluca, PharmD [address] [place] [address] 10/15/2024 11:00 AM EDT Office Visit [facility] ADULT D[facility] [address] [place] [address] Cassi Simms [address] [place] [address] 11/21/2024 9:00 AM EDT Office Visit [facility] [address] [place] [address] Name, MD Joey [address] [place] [address] documented as of this encounter Goals Goal [...] documented as of this encounter Care Teams Ordnance Corps Officer Relationship Specialty Start Date End Date Emperatriz Stoll FNP [address] [place] [address] PCP - General Family Medicine 07/19/22 02/05/24 Name, MD Joey 230 [place] [address] PCP - General Internal Medicine 02/06/24 Rosa Deluca PharmD 230 [place] [address] Pharmacist Internal Medicine 12/03/23 documented as of this encounter
--- OUTSIDE RECORDS SUMMARY | 2024-09-09 16:53 | XMS_ITS | Encounter Summary ---
Author Organization [employer] Address [address] 7[address] [place] [address] Care Team Providers Care Sledger Name Role Phone Rosa Deluca PharmD Unavailable [phone]- [phone] NameJoey MD Primary Care Provider [phone] Reason for Visit * Reason Onset Date Comments Appointment Request 08/25/2024 Encounter Details Date Type Department Care Team ([facility] Contact Info) Description 08/25/2024 Telephone [facility] 230 [place] [address] Name, MD Joey [address] [place] [address] Appointment Request Social History Tobacco Use Types Packs/Day Years [...] encounter Miscellaneous Notes * Telephone Encounter - Lachelle Frausto RN - 08/25/2024 2:03 PM EDT Pt discharged from [facility] 08/21/24 Dx: CKD, Chronic Anemia, CAD, S/P CABG x 3 on 08/15/24. Available [facility] obtained and sent to medical records. T/C to pt who agrees to HDF with pcp 09/09/24 at 1:15p. * Telephone Encounter - Demarco Marquez - 08/25/2024 10:08 AM EDT Tc from pt requesting a Appt with PCP due to getting Heart Surgery. Pt states that PCP stated wouldlike to see him after surgery. Pt Got Surgery done 08/15/24. Contact pt at [phone] documented in this encounter Plan of Treatment Upcoming Encounters Date Type Department Care Team (Late st Contact Info) Description 10/07/2024 9:30 AM EDT Medication Management [address] [address] Rosa Deluca, PharmD [address] [place] [address] 10/15/2024 11:00 AM EDT Office Visit [facility] ADULT DENTAL 230 [place] [address] Jeanmarie Simmsaris 230 [place] [address] 11/21/2024 9:00 AM EDT Office Visit [facility] [address] [place] [address] Name, MD Joey [address] [place] [address] documented as of this encounter Goals Goal [...] documented as of this encounter Care Teams Sledger Relationship Specialty Start Date End Date NameJoey MD [address] [place] [address] PCP - General Internal Medicine 02/06/24 Rosa Deluca, DamionD [address] [place] [address] Pharmacist Internal Medicine 12/03/23 documented as of this encounter
--- OUTSIDE RECORDS SUMMARY | 2024-09-09 16:53 | XMS_ITS | Encounter Summary ---
Author Organization [employer] Address [address] 7t [place] [address] Care Team Providers Care Media/Instructional Designer Name Role Phone Rosa Deluca PharmD Unavailable [phone]- [phone] NameJoey MD Primary Care Provider [phone] Reason for Visit * Reason Comments Med Refill Encounter Details Date Type Department Care Team ([facility] st Contact Info) Description 09/08/[address] [facility] 230 [place] [address] Name, MD Joey 230 [place] [address] Social History Tobacco Use Types Packs/Day Years [...] 10/07/2024 9:30 AM EDT Medication Management [facility] [address] [place] [address] Rosa Deluca, PharmD [address] [place] [address] 10/15/2024 11:00 AM EDT Office [facility] ADULT D[facility] [address] [place] [address] Mendez, Cassi 230 [place] [address] 11/21/2024 9:00 AM EDT Office Visit [facility] [address] [place] [address] Name, MD Joey [address] [place] [address] documented as of this encounter Goals Goal [...] documented as of this encounter Care Teams Media/Instructional Designer Relationship Specialty Start Date End Date Name, MD Joey 230 [place] [address] PCP - General Internal Medicine 02/06/24 Rosa Deluca, Martha [address] [place] [address] Pharmacist Internal Medicine 12/03/23 documented as of this encounter
--- OUTSIDE RECORDS SUMMARY | 2024-09-09 16:53 | XMS_ITS | Patient Health Record ---
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) Active confirmed Problem Mild recurrent major depression (46662012) Major depressive disorder, recurrent, mild (F33.0) Active confirmed Problem Idiopathic periphera l autonomic neuropathy (16414010) Other idiopathic peripheral autonomic neuropathy (G90.09) Active confirmed Problem Chronic systolic hea rt failure (721066486) Chronic systolic (congestive) heart failure (I50.22) Active confirmed Problem Chronic kidney disea se stage 4 (760698664) Chronic kidney disease, stage 4 (severe) (N18.4) Active confirmed Problem Pure hypercholesterolemia (760006005) Pure hypercholester olemia, unspecified (E78.00) Active confirmed Problem Essential hypertensi on (11596851) Essential hypertension (I10) Active confirmed Plan Of Treatment Pending Test Test Name Order Date ESOPHAGOGASTRODUODENOSCOPY 12/12/2019 COLONOSCOPY AND BIOPSY 12/12/2019 COVID -19 Testing 12/12/2019 Insurance Providers Payer Name Payer Address Payer Phone Subscriber Number Group Number Insured Name Patient Relationship to Insured Coverage Start Date Coverage End Date [employer] [address] [address] [place] [phone] [id number] ELAINE FLEMING Self - patient is the [...]
--- OUTSIDE RECORDS SUMMARY | 2024-09-09 16:53 | XMS_ITS | Encounter Summary ---
Author Organization [employer] Address [address] 7[address] [place] [address] Care Team Providers Care Software Validation Engineer Name Role Phone Rosa Deluca PharmD Unavailable [phone] NameJoey MD Primary Care Provider [phone] Reason for Visit * Reason Comments HDF Encounter Details Date Type Department Care Team ([facility] st Contact Info) Description 09/09/2024 1:15 PM EDT Office Visit [facility] 230 [place] [address] Name, MD Joey [address] [place] [address] Type 2 diabetes mellitus with hyperglycemia, with long-term current use of insulin ([facility]) (Primary Dx); Chronic anemia; Drug-induced constipation; Hypotension due to drugs; History of coronary artery bypass graft x 3; Dysuria Social History Tobacco Use Types Packs/Day Years [...] Mass Index 29.66 09/09/2024 1:18 PM EDT documented in this encounter Progress Notes * Joey Barreto MD - 09/09/2024 1:15 PM EDT Subjective Patient ID: Efrain Art is a 63 y.o. male who presents for HDF. Patient comes for a posthospitalization visit. He is accompanied by his daughter. He was recently hospitalized at [facility] and he underwent triple-vessel CABG. The patient denies any chest pains or shortness of breath. He tells me his blood pressure has been running low and is feeling sometimes dizzy ifhe stands too fast. He has upcoming appointments with his spreading machine operator and further cardiovascular rehabilitation. Today he also complains of constipation. This is possibly related to his pain medication. He has noted hyperglycemia since he was taking of the Ozempic during his hospitalization. He would like to restart Ozempic. He also complains of mild dysuria. He denies any gross hematuria, no fevers or chills. The patient tells me that he had a Castrejon catheter during his recent hospitalization. Summary of the recent hospitalization is written below: [facility] (08/15/2024 - 08/21/2024) Patient presented with worsening chest pain and dyspnea on exertion. Underwent cardiac craterization that revealed 70% LAD, 90% OM ISR, and 85% PDA. Referred to cardiac surgeon for evaluation of coronary artery bypass grafting. Received gabapentin, lidocaine patches, and as needed oxycodone for post-operative pain. Recommended re-titration of Ozempic outpatient due to poor appetite while inpatient. Instructed to follow with spreading machine operator, cardiac surgery, and PCP. Discharged home with home health. Medication changes that occurred during hospitalization include: ?? Added ?? Clopidogrel 75 mg by mouth once daily ?? Carvedilol 3.125 mg by mouth twice daily ?? Furosemide 40 mg by mouth once daily ?? Amiodarone 200 mg by mouth twice daily ?? Tamsulosin 0.4 mg by mouth once daily ?? Spironolactone 25 mg by mouth once daily ?? Changed: none ?? Discontinued: Ozempic Review of Systems Constitutional: Negative for chills, fatigue and fever. HENT: Negative for sore throat. Respiratory: Negative for cough, chest tightness and shortness of breath. Cardiovascular: Negative for chest pain, palpitations and leg swelling. Gastrointestinal: Positive for constipation. Negative for abdominal pain and blood in stool. Genitourinary: Positive for dysuria. Negative for decreased urine volume, hematuria and urgency. Visit Vitals BP 109/62 (BP Location: Right arm, Patient Position: Sitting, BP Cuff Size: Adult) Pulse 74 Temp 98.6 ??F (37 ??C) (Oral) Resp 20 Ht 5' 5 (1.651 m) Wt 178 lb 4 oz (80.9 kg) SpO2 99% BMI 29.66 kg/m?? Smoking Status Former BSA 1.93 m?? Objective Physical Exam Constitutional: Appearance: Normal appearance. Cardiovascular: Rate and Rhythm: Normal rate and regular rhythm. Heart sounds: No murmur heard. Pulmonary: Effort: Pulmonary effort is normal. No respiratory distress. Breath sounds: No wheezing, rhonchi or rales. Chest: Comments: Clean anterior chest wall wound. No significant redness. No drainage. Abdominal: Palpations: Abdomen is soft. Tenderness: There is no abdominal tenderness. Musculoskeletal: Right lower leg: No edema. Left lower leg: No edema. Neurological: Mental Status: He is alert. Basic metabolic panel Order: [id number] Component Ref Range & Units 4 wk ago Glucose 70 - 99 mg/dL 72 BUN 8 - 27 mg/dL 25 Creatinine 0.76 - 1.27 mg/dL 2.16 High eGFR CKD-EPI CR 2020 >59 mL/min/1.73 34 Low BUN/Creatinine Ratio 10 - 24 12 Sodium 134 - 144 mmol/L 141 Potassium 3.5 - 5.2 mmol/L 4.8 Chloride 96 - 106 mmol/L 102 Bicarbonate (CO2) 20 - 29 mmol/L 21 Calcium 8.6 - 10.2 mg/dL 8.9 Current Outpatient Medications on File Prior to Visit Medication Sig Dispense Refill albuterol 108 (90 Base) MCG/ACT inhaler Inhale 2 puffs every 4 (four) hours if needed for wheezing.18 g 0 amiodarone (Pacerone) 200 MG tablet Take 1 tablet by mouth 2 times daily. Ascorbic Acid (vitamin C) 500 MG tablet TAKE 1 TABLET BY MOUTH EVERY MORNING 30 tablet 2 Aspirin Low Dose 81 MG chewable tablet [...] the morning. 1 each 0 carvedilol (Coreg) 3.125 MG tablet Take 1 tablet by mouth with breakfast and with evening meal. Continuous Glucose Sensor (FreeStyle Sarina 2 Sensor) [facility] USE DIRECTED AND CHANGE EVERY 14 DAYS 2 each 5 ezetimibe (Zetia) 10 MG tablet TAKE 1 TABLET BY MOUTH EVERY MORNING 90 tablet 3 Farxiga 10 MG Take 1 tablet (10 mg) by mouth Once per day. 90 tablet 3 folic acid (Folvite) 1 MG tablet TAKE 1 TABLET BY MOUTH EVERY MORNING 30 tablet 1 gabapentin (Neurontin) 300 MG capsule TAKE 1 CAPSULE BY MOUTH EVERY MORNING 30 capsule 0 [] glucose blood (FreeStyle Precision Virgil Test) test strip Use to check blood sugar with CGMdevice as needed 100 each 3 insulin glargine (Lantus SoloStar) 100 UNIT/ML pen INJECT 22 UNITS SUBCUTANEOUSLY AT BEDTIME 15 mL 3 Lancet Device misc Use to test blood sugar as directed 1 each 0 Lancets (Truly DelYolia Health Plus Loohpe27X) misc USE TO TEST BLOOD SUGAR IN THE MORNING 100 each 12 Plavix 75 MG tablet Take 1 tablet by mouth Once per day. spironolactone (Aldactone) 25 MG tablet Take 1 tablet by mouth Once per day. tamsulosin (Flomax) 0.4 MG 24 hr capsule Take 1 capsule by mouth Once per day. traMADol (Ultram) 50 MG tablet Take 1 tablet (50 mg) by mouth every 12 (twelve) hours if needed forsevere pain for up to 28 days. Do not start before August 29, 2024. 56 tablet 0 Vascepa 1 g capsule Take 2 capsules by mouth 2 times daily. [DISCONTINUED] Continuous Glucose Sensor (FreeStyle Sarina 2 Sensor) misc TEST BLOOD SUGAR FOUR TIMES DAILY 1 each 11 [DISCONTINUED] Lasix 40 MG tablet Take 1 tablet by mouth Once per day. No current facility-administered medications on file prior to visit. Assessment/Plan Diagnoses and all orders for this visit: Type 2 diabetes mellitus with hyperglycemia, with long-term current use of insulin ([facility]) Comments: Overall patient seems to be doing well after recent surgery. Blood pressure running a little low and has dizziness if he stands up too fast. I will cut the doseof Lasix in half. He is encouraged to keep his upcoming appointment with cardiology and cardiovascular rehab. I restarted his Ozempic for diabetes control and cardiovascular protection. I prescribed lactulose for constipation. I will check a urinalysis to make sure he does not have a UTI. Orders: - POCT Glucose Chronic anemia - POCT Hemoglobin Drug-induced constipation Hypotension due to drugs History of coronary artery bypass graft x 3 Dysuria - Urinalysis, Complete, with Reflex to Culture; Future Other orders - semaglutide (Ozempic) 2 MG/1.5ML solution pen-injector; Inject 0.5 mg subcutaneously q week - lactulose 20 gram/30 mL oral solution; Take 30 mL (20 g) by mouth Once per day. - furosemide (Lasix) 20 MG tablet; Take 1 tablet (20 mg) by mouth Once per day. documented in this encounter Plan of Treatment Upcoming Encounters Date Type Department Care Team (Late st Contact Info) Description 10/07/2024 9:30 AM EDT Medication Management [facility] [address] [place] [phone] Rosa Deluca PharmD [address] [place] [address] 10/15/2024 11:00 AM EDT Office Visit [facility] [address] [place] [address] Mendez, Cassi [address] [place] [address] 11/21/2024 9:00 AM EDT Office Visit [facility] [address] [place] [address] Joey Barreto MD [address] [place] [address] documented as of this encounter Goals Goal [...] Routine 09/09/2024 1:49 PM EDT Dysuria POCT GLUCOSE Routine 09/09/2024 1:20 PM EDT Type 2 diabetes mellitus with hyperglycemia, with long-term current use of insulin ([facility]) POCT HEMOGLOBIN Routine 09/09/2024 1:20 PM EDT Chronic anemia documented in this encounter Results * (ABNORMAL) Urinalysis, Complete, with Reflex to Culture (09/09/2024 1:49 PM EDT) Color Urine Yellow [facility] Appearance Urine Clear [facility] PH 6.0 5.0 - 9.0 [facility] Glucose Urine UA >=1000(A) Negative mg/dL [facility] Urine Blood Moderate (2+)(A) Negative [facility] Specific [place] - Urine 1.015 1.005 - 1.025 [facility] Urine Protein Negative Neg-Trace mg/dL [facility] Urine Ketones Negative Negative mg/dL [facility] Nitrite Urine Negative Negative [facility] Leukocyte Esterase Urine Negative Negative [facility] RBC Urine 0-2 0 - 2 /HPF [facility] Urine WBC 0-5 0 - 5 /HPF [facility] Urine Squamous Epithelial Cell 0-2 0 - 2 /HPF [facility] Urine Bacteria None Seen None Seen [facility] Hyaline Casts, Urine 3-5 0 - 2 /LPF [facility] Urine 09/09/2024 1:49 PM EDT 09/09/2024 4:09 PM EDT Narrative [facility] - 09/09/2024 4:29 PM EDT Urine, Clean Catch us Joey Barreto MD LAB URINE ORDERABLES Final Resul t [facility] [address] [place] [address] [phone] * (ABNORMAL) POCT Hemoglobin (09/09/2024 1:20 PM EDT) Hemoglobin 10.4(A) 13.0 - 17.0 QC Media Lot # [id number] Lot# Expiration Date ,026 Blood 09/09/2024 1:20 PM EDT us Joey Barreto MD POINT OF CARE TEST ENTER/EDIT OR DERABLES Final Result * (ABNORMAL) POCT Glucose (09/09/2024 1:20 PM EDT) Glucose Blood, POC 244(A) 60 - 200 mg/dL QC Media Lot # [id number] Lot# Expiration Date , Blood Capillary blood specimen / Unknown 09/09/2024 1:20 PM EDT us Joey Barreto MD POINT OF CARE TEST ENTER/EDIT OR DERABLES Final Result documented in this encounter Visit Diagnoses Diagnosis Type 2 diabetes mellitus with hyperglycemia, with long-term current use of insulin ([facility])- Primary Chronic anemia Unspecified anemia Drug-induced constipation Other constipation Hypotension due to drugs Other iatrogenic hypotension History of coronary artery bypass graft x 3 Dysuria documented in this encounter Additional Health Concerns Assessment Noted Time PHQ-9 Depression Total Score: 8 06/06/19 25 11:44 AM EST documented as of this encounter Care Teams Software Validation Engineer Relationship Specialty Start Date End Date Name, MD Joey [address] [place] [address] PCP - General Internal Medicine 02/06/24 Rosa Deluca PharmD [address] [place] [address] Pharmacist Internal Medicine 12/03/23 documented as of this encounter
== END 2024-09-09 13:49 | disposition home or self-care (01) ==
LOC: HO.HHCL 13:48
PROVIDERS: Visit Provider Internal Medicine Geriatric Medicine
DX: R30.0 Dysuria (principal)
CPT/HCPCS: 81001

== ENCOUNTER 2024-09-15 14:44 | Outpatient (REF) | payer OTHER, SELFPAY ==
[2024-09-15 16:08] LABS: Appearance Urine Clear; Color Urine Yellow; Glucose Urine UA >=1000 mg/dL (Negative); Leukocyte Esterase Urine Negative (Negative); Nitrite Urine Negative (Negative); Specific Gravity - Urine 1.015 (1.005-1.025); UMIC TRIGGER UACC YES; Urine Blood Negative (Negative); Urine Ketones Negative (Negative); Urine Protein Negative (Neg-Trace)
[2024-09-15 16:14] LABS: Bacteria Urine None Seen (None Seen); RBC Urine 0-2 /HPF (0-2); Squamous Epithelial Cell Urine 0-2 /HPF (0-2); WBC Urine 0-5 /HPF (0-5)
[2024-09-15 16:22] LABS: Anion Gap 15 (12-20); Blood Urea Nitrogen 31 mg/dL (9-16); Calcium 8.8 mg/dL (8.4-10.2); Carbon Dioxide 24 mmol/L (22-29); Chloride 100 mmol/L (96-108); Estimated Glomerular Filt Rate 23; Glucose Random 132 mg/dL (60-115); Potassium 4.3 mmol/L (3.3-5.1); Sodium 135 mmol/L (135-145)
--- OUTSIDE RECORDS SUMMARY | 2024-09-15 17:16 | XMS_ITS | Encounter Summary ---
Author Organization [employer] Address [address] [place] [address] Care Team Providers Care Wine Consultant Name Role Phone Emperatriz Stoll Primary Care Provider +[phone] Rosa Deluca PharmD Unavailable [phone] Name, Joey MERINO Primary Care Provider [phone] Reason for Visit * Reason Onset Date Comments Med Refill 08/30/2023 Encounter Details Date Type Department Care Team ([facility] st Contact Info) Description 08/30/2023 Telephone [facility] [address] [place], [place] [phone] Emperatriz Stoll FNP [address] [place], [place] [phone] Med Refill Social History Tobacco Use Types [...] 50 MG tablet To be sent to: [facility] - [place], [place] - [address] [place] [address] documented in this encounter Plan of Treatment Upcoming Encounters Date Type Department Care Team ([facility] st Contact Info) Description 10/07/2024 9:30 AM EDT Medication Management [facility] [address] [place] [address] Rosa Deluca, PharmD [address] [place] [address] 10/15/2024 11:00 AM EDT Office Visit [facility] ADULT DENTAL [address] [place] [address] Cassi Simms [address] [place] [address] 11/21/2024 9:00 AM EDT Office Visit [facility] [address] [place] [address] Name, MD Joey [address] [place] [address] documented as of this encounter Goals Goal [...] documented as of this encounter Care Teams Wine Consultant Relationship Specialty Start Date End Date Emperatriz Stoll FNP [address] [place] [address] PCP - General Family Medicine 07/19/22 02/05/24 Name, MD Joey [address] [place] [address] PCP - General Internal Medicine 02/06/24 Rosa Deluca PharmD [address] [place] [address] Pharmacist Internal Medicine 12/03/23 documented as of this encounter
--- OUTSIDE RECORDS SUMMARY | 2024-09-15 17:16 | XMS_ITS | Patient Health Record ---
Author Organization [facility] Address [address] [address] Care Team Providers Care Produce Department Manager Name Role Phone Data, Migration. Unavailable [phone] Reason For Referral No Information Medications Medication [...] Status W/U Status Risk Notes Problem Heartburn (96181134) Heartburn (R12) 08/18/19 18 Active confirmed [id number] rn Problem Acid reflux (299083581) Acid reflux (K21.9) 08/18/19 18 Active confirmed NH562-Rzrz reflux Problem Epigastric pain (44460350) Abdominal Pain Epigastric (R10.13) 08/18/19 18 Active confirmed BG309-Swybbdd al Pain Epigastric Problem Flatulence, eructation and gas pain (514322268) Bloating /gas symptom (R14.0) 08/18/19 18 Active confirmed II863-Znkpunv g /gas symptom Plan Of Treatment No Information Medical (General) History Surgical History Surgery Date(Month/Year) Stent (1) 2016 catheterization 2017 Eye Surgery (Right) 2016
--- OUTSIDE RECORDS SUMMARY | 2024-09-15 17:16 | XMS_ITS | Encounter Summary ---
Author Organization [facility] Address [address] [place] [address] Phone Care Team Providers Care Glass Blowing Instructor Name Role Phone Name, Joey MERINO Primary Care Provider [phone] Encounter Details Date Type Department Care Team (Late st Contact Info) Description 08/09/2022 Telephone [facility] [address] [place] [address] Patricia Deras Social History Tobacco [...] Office Visit [facility] [address] [phone] Kevin Gates MD [address] [phone] 01/12/2025 1:15 PM EDT Office Visit [facility] [address] [phone] Kevin Gates MD [address] [phone] documented as of this encounter Visit Diagnoses Not on filedocumented in this encounter Care Teams Glass Blowing Instructor Relationship Specialty Start Date End Date Name, MD Joey [address] [place] [address] PCP - General Internal Medicine 07/16/24 documented as of this encounter
--- OUTSIDE RECORDS SUMMARY | 2024-09-15 17:16 | XMS_ITS | Encounter Summary ---
Author Organization [employer] Address [address] [place] [address] Care Team Providers Care Inletter Name Role Phone Rosa Deluca PharmD Unavailable [phone] Name, Joey MERINO Primary Care Provider [phone] Encounter Details Date Type Department Care Team ([facility] st Contact Info) Description 09/12/2024 Telephone [facility] [address] [place] [address] Name, MD Joey [address] [place] [address] Social History Tobacco Use Types Packs/Day Years [...] encounter Miscellaneous Notes * Telephone Encounter - Joey Barreto MD - 09/12/2024 4:45 PM EDT I called patient. We discussed results of urinalysis. He is completely asymptomatic. The color of his urine is normal. He is not having any muscle discomfort. I recommended to recheck BMP and UA nextweek. documented in this encounter Plan of Treatment Upcoming Encounters Date Type Department Care Team (Late st Contact Info) Description 10/07/2024 9:30 AM EDT Medication Management [facility] [address] [place] [address] Rosa Deluca, PharmD [address] [place] [address] 10/15/2024 11:00 AM EDT Office Visit [facility] [address] [place] [address] Cassi Simms [address] [place] [address] 11/21/2024 9:00 AM EDT Office Visit [facility] [address] [place] [address] Joey Barreto MD [address] [place] [address] documented as of this encounter Goals Goal Patient Goal Type Associated Problems Recent Progress Patient-Stated? Author Blood Pressure < 140/90 Blood Pressure 109/62(2024 1:18 PM EDT) No Donald Johnson Hemoglobin A1c < 7.5 Result Component 6(07/14/2024 9:46 AM EST) No Donald Johnson documented as of this encounter Procedures Procedure Name Priority Date/Time Associated Diagnosis Comments URINALYSIS, COMPLETE, WITH REFLEX TO CULTURE Routine 09/15/2024 2:46 PM EDT Asymptomatic microscopic hematuria BASIC METABOLIC PANEL Routine 09/15/2024 2:46 PM EDT Chronic kidney disease, stage 4 (severe) ([facility]) documented in this encounter Results * (ABNORMAL) Urinalysis, Complete, with Reflex to Culture (09/15/2024 2:46 PM EDT) Color Urine Yellow [facility] Appearance Urine Clear [facility] PH 5.0 5.0 - 9.0 [facility] Glucose Urine UA >=1000(A) Negative mg/dL [facility] Urine Blood Negative Negative [facility] Specific [place] - Urine 1.015 1.005 - 1.025 [facility] Urine Protein Negative Neg-Trace mg/dL [facility] Urine Ketones Negative Negative mg/dL [facility] Nitrite Urine Negative Negative [facility] Leukocyte Esterase Urine Negative Negative [facility] RBC Urine 0-2 0 - 2 /HPF [facility] Urine WBC 0-5 0 - 5 /HPF [facility] Urine Squamous Epithelial Cell 0-2 0 - 2 /HPF [facility] Urine Bacteria None Seen None Seen [facility] Hyaline Casts, Urine 3-5 0 - 2 /LPF [facility] Urine 09/15/2024 2:46 PM EDT 09/15/2024 3:59 PM EDT Narrative [facility] - 09/15/2024 4:15 PM EDT Urine, Clean Catch us Joey Barreto MD LAB URINE ORDERABLES Final Resul t Performing Organization Address [facility] de Phone Number [facility] [address] [place] [phone] * (ABNORMAL) Basic Metabolic Panel (09/15/2024 2:46 PM EDT) Sodium 135 135 - 145 mmol/L [facility] Potassium 4.3 3.3 - 5.1 mmol/L [facility] Chloride 100 96 - 108 mmol/L [facility] Carbon Dioxide 24 22 - 29 mmol/L [facility] Anion Gap 15 12 - 20 [facility] Urea Nitrogen (BUN) 31(H) 9 - 16 mg/dL [facility] Creatinine, Serum 2.77(H) 0.5 - 1.4 mg/dL [facility] Estimated Glomerular Filt Rate 23 [facility] Comment:Chronic Kidney Disea se: Estimated GFR < 60 mL/min/[id number] Kidney Disease: Estimated GFR < 15 mL/min/1.73m2 Glucose 132(H) 60 - 115 mg/dL [facility] Calcium 8.8 8.4 - 10.2 mg/dL [facility] Blood Venous blood specimen / Unknown 09/15/2024 2:46 PM EDT 09/15/2024 4:00 PM EDT us Joey Barreto MD LAB BLOOD ORDERABLES Final Resul t Performing Organization Address [facility] Co de Phone Number [facility] [address] [place] [phone] documented in this encounter Visit Diagnoses Diagnosis Chronic kidney disease, stage 4 (severe) (CMS/HCC)- Primary Asymptomatic microscopic hematuria documented in this encounter Additional Health Concerns Assessment Noted Time PHQ-9 Depression Total Score: 8 06/06/19 25 11:44 AM EST documented as of this encounter Care Teams Inletter Relationship Specialty Start Date End Date Name, MD Joey [address] [place] [address] PCP - General Internal Medicine 02/06/24 Rosa Deluca, DamionD [address] [place] [address] Pharmacist Internal Medicine 12/03/23 documented as of this encounter
--- OUTSIDE RECORDS SUMMARY | 2024-09-15 17:16 | XMS_ITS | Clinical Summary ---
Author Organization [employer] Address [address] [place] [address] Care Team Providers Care Petrophysicist Name Role Phone Rosa Deluca PharmD Unavailable [phone] Name, Joey MERINO Primary Care Provider [phone] Allergies No known active allergies Medications albuterol [...] each 023 Active Lancets (OneTouch Delica Plus [id number]) miscIndications:Ty pe 2 diabetes mellitus without complications (CMS/[facility]) USE TO TEST BLOOD SUGAR IN THE MORNING 100 each 12 024 Active Aspirin Low Dose 81 MG chewable tabletIndications: Presence of coronary angioplasty implant and graft CHEW 1 TABLET BY MOUTH EVERY DAY 90 tablet 3 024 Active BD Pen Needle Danielle U/F 32G X 4 MM miscIndications:Co ntrolled type 2 diabetes mellitus with complication, with long-term current use of insulin (CMS/HCC) USE DIRECTED ONCE DAILY 100 each 1 024 Active Farxiga 10 MGIndications:Cont rolled type 2 diabetes mellitus without complication, unspecified whether terminal gauger supervisor insulin use (CMS/HCC) Take 1 tablet (10 mg) by mouth Once per day. 90 tablet 3 025 06/24 Active folic acid (Folvite) 1 MG tabletIndications: Dietary counseling TAKE 1 TABLET BY MOUTH EVERY MORNING 30 tablet 1 Active Lancet Device miscIndications:Co ntrolled type 2 diabetes mellitus with complication, with long-term current use of insulin ([facility]) Use to test blood sugar [...] 30 capsule Active traMADol (Ultram) 50 MG tabletIndications: Other chronic pain Take 1 tablet (50 mg) by mouth every 12 (twelve) hours if needed for severe pain for up to 28 days. Do not start before August 29, 2024. 56 tablet 025 09/26 Active insulin glargine (Lantus SoloStar) 100 UNIT/ML penIndications:Con trolled type 2 diabetes mellitus with complication, with long-term current use of insulin ([facility]) INJECT 22 UNITS SUBCUTANEOUSLY AT BEDTIME 15 mL 3 Active Continuous Glucose Sensor (FreeStyle Sarina 2 Sensor) [facility] USE DIRECTED AND CHANGE EVERY 14 DAYS 2 each 5 Active semaglutide (Ozempic) 2 MG/1.5ML solution pen-injector Inject 0.5 mg subcutaneously q week 1.5 mL Active lactulose 20 gram/30 mL oral solution Take 30 mL (20 g) by mouth Once per day. 450 mL 025 09/09 Active furosemide (Lasix) 20 MG tablet Take 1 tablet (20 mg) by mouth Once per day. 30 tablet 11 025 09/09 Active amiodarone (Pacerone) 200 MG tabletIndications: Coronary arteriosclerosis Take 1 tablet (200 mg) by mouth 2 times daily. 60 tablet 04/04/05 Active Plavix 75 MG tabletIndications: Coronary arteriosclerosis Take 1 tablet (75 mg) by mouth Once per day. 30 tablet 025 10/12 Active tamsulosin (Flomax) 0.4 MG 24 hr capsule Take 1 capsule (0.4 mg) by mouth Once per day. 30 capsule 025 10/12 Active spironolactone (Aldactone) 25 MG tabletIndications: Hypertension, unspecified type Take 1 tablet (25 mg) by mouth Once per day. 30 tablet 025 10/12 Active carvedilol (Coreg) 3.125 MG tabletIndications: Hypertension, unspecified type Take 1 tablet (3.125 mg) by mouth with breakfast and with evening meal. 60 tablet Active Kerendia 10 MG tablet Take 1 tablet by mouth in the morning. 024 09/02 Discontinued( Med list cleanup (will not trigger notification to Pharmacy)) glucose blood (FreeStyle Precision Virgil Test) test strip Use to check blood sugar with CGM device as needed 100 each 3 024 09/06 polyethylene glycol, PEG, 3350 (Glycolax) 17 GM/SCOOP powderIndications: Other constipation TAKE 17 GM MIXED IN 8 OUNCES OF WATER ONCE DAILY IN THE MORNING 510 g 2 024 09/02 Discontinued( Med list cleanup (will not trigger notification to Pharmacy)) cyanocobalamin (Vitamin B-12) 500 MCG tablet Take as directed: patient purchasing OTC 09/02 Discontinued( Med list cleanup (will not trigger notification to Pharmacy)) carvedilol (Coreg) 12.5 MG tabletIndications: Primary hypertension TAKE 1 TABLET BY MOUTH TWICE DAILY 180 tablet 1 024 09/02 Discontinued( Med list cleanup (will not trigger notification to Pharmacy)) Entresto 24-26 MG tablet TAKE 1 TABLET BY MOUTH TWICE DAILY IN THE MORNING AND IN THE EVENING 024 09/02 Discontinued( Med list cleanup (will not trigger notification to Pharmacy)) melatonin 3 MG tablet TAKE 1 TABLET BY MOUTH AT BEDTIME NEEDED FOR SLEEP 90 tablet 1 024 09/02 Discontinued( Med list cleanup (will not trigger notification to Pharmacy)) Continuous Glucose Sensor (FreeStyle Sarina 2 Sensor) [facility] TEST BLOOD SUGAR FOUR TIMES DAILY 1 each 024 09/09 Discontinued insulin glargine (Lantus SoloStar) 100 UNIT/ML penIndications:Con trolled type 2 diabetes mellitus with complication, with long-term current use of insulin (CMS/HCC) Inject subcutaneously 22 units once daily 024 09/01 Discontinued Semaglutide,0.25 or 0.5MG/DOS, (Ozempic, 0.25 or 0.5 MG/DOSE,) 2 MG/3ML solution pen-injectorIndica tions:Type 2 diabetes mellitus without complication, with long-term current use of insulin (CMS/HCC) INJECT 0.5 MG SUBCUTANEOUSLY EVERY 7 DAYS IN THE ABDOMEN, THIGHS, OR UPPER ARM, ROTATE INJECTION SITES. 3 mL 3 024 08/25 Discontinued( Discontinued by another clinician) gabapentin (Neurontin) 300 MG capsule TAKE 1 CAPSULE BY MOUTH EVERY MORNING 30 capsule 025 08/18 Discontinued Ascorbic Acid (vitamin C) 500 MG tablet TAKE 1 TABLET BY MOUTH EVERY MORNING 30 tablet 025 08/18 Discontinued Ferrous Sulfate (iron) 325 (65 Fe) MG tablet TAKE 1 TABLET BY MOUTH EVERY MORNING WITH FOOD 30 tablet 025 08/18 Discontinued isosorbide mononitrate ER (Imdur) 60 MG 24 hr tablet Take 60 mg by mouth in the morning. 025 09/02 Discontinued( Med list cleanup (will not trigger notification to Pharmacy)) traMADol (Ultram) 50 MG tabletIndications: Other chronic pain Take 1 tablet (50 mg) by mouth every 12 (twelve) hours if needed for severe pain for up to 28 days. 56 tablet 025 08/28 Discontinued( Reorder (will not trigger notification to Pharmacy)) Ferrous Sulfate (iron) 325 (65 Fe) MG tablet TAKE 1 TABLET BY MOUTH EVERY MORNING WITH FOOD 30 tablet 2 025 09/02 Discontinued( Med list cleanup (will not trigger notification to Pharmacy)) amiodarone (Pacerone) 200 MG tablet Take 1 tablet by mouth 2 times daily. 09/12 Discontinued( Reorder (will not trigger notification to Pharmacy)) carvedilol (Coreg) 3.125 MG tablet Take 1 tablet by mouth with breakfast and with evening meal. 09/12 Discontinued( Reorder (will not trigger notification to Pharmacy)) Plavix 75 MG tablet Take 1 tablet by mouth Once per day. 09/12 Discontinued( Reorder (will not trigger notification to Pharmacy)) Lasix 40 MG tablet Take 1 tablet by mouth Once per day. 09/09 Discontinued( Dose adjustment) spironolactone (Aldactone) 25 MG tablet Take 1 tablet by mouth Once per day. 09/12 Discontinued( Reorder (will not trigger notification to Pharmacy)) tamsulosin (Flomax) 0.4 MG 24 hr capsule Take 1 capsule by mouth Once per day. 09/12 Discontinued( Reorder (will not trigger notification to Pharmacy)) Active [...] -compressions stockings 20-30 mmHg requested today to [facility] RN -pt has apt w PCP 12/21/2023 ,if ongoing symptoms and no explanation in blood labs will need to consider to r/o sleep dx,neuropathy associated -advised to f w his cards as well Chronic anemia 05/04/2023 05/04/2023 Coronary arteriosclerosis 05/04/20233 Overview (07/14/2024): History of CAD with ACS [...] 1 07/05/2022 03/07/2024 Controlled type 2 diabetes jennifer cardenas without complication 07/19/2022 03/07/2024 Encounters Date Type Department Care Team Description 09/12/2024 Telephone [facility] [address] [place] [address] Joey Barreto MD 09/12/2024 Refill [facility] [address] [place] [address] Joey Barreto MD Hypertension, unspecified type (Primary Dx); Coronary arteriosclerosis 09/09/2024 1:15 PM EDT Office Visit [facility] [address] [place] [address] Joey Barreto MD Type 2 diabetes mellitus with hyperglycemia, with long-term current use of insulin ([facility]) (Primary Dx); Chronic anemia; Drug-induced constipation; Hypotension due to drugs; History of coronary artery bypass graft x 3; Dysuria 09/09/2024 Travel 09/08/2024 Telephone [facility] [address] [place] [address] Que [place] chart prep 09/08/2024 Refill [facility] [address] [place] [address] Joey Barreto MD 08/30/2024 Refill [facility] [address] [place] [address] Emperatriz Stoll FNP Controlled type 2 diabetes mellitus with complication, with long-term current use of insulin (CMS/HCC) 08/25/2024 Refill [facility] [address] [place] [address] Rosa Deluca, PharmD Other chronic pain 08/25/2024 Telephone [facility] [address] [place] [address] Joey Barreto MD Appointment Request 08/22/2024 Refill [facility] [address] [place] [address] Rosa Deluca, PharmD Type 2 diabetes mellitus without complication, with long-term current use of insulin ([facility]) 08/17/2024 Refill [facility] [address] [facility] [place] [address] Joey Barreto MD 08/15/2024 Telephone [facility] [address] [place] [address] [place] may recalls 08/13/2024 Refill [facility] [address] [place] [address] Emperatriz Stoll FNP 08/08/2024 Telephone [facility] [address] [place] [address] Rosa Deluca, PharmD 08/06/2024 10:30 AM EST Immunization [facility] [address] [place] [address] Suzan Becerra, KYLER Encounter for immunization 08/06/2024 Telephone [facility] [address] [place] [address] Cassi Simms 08/06/2024 Travel 08/06/2024 Refill [facility] [address] [place] [address] Patricia Thompson DO Dietary counseling 07/29/2024 Refill [facility] [address] [place], [place] [phone] Joey Barreto MD Other chronic pain 07/16/2024 Orders Only [facility] External Provider, [facility] 07/14/2024 9:45 AM EST Office Visit [facility] [address] [place] [address] Joey Barreto MD Coronary arteriosclerosis (Primary Dx); Controlled type 2 diabetes mellitus with complication, with long-term current use of insulin ([facility]) 07/14/2024 Refill [facility] [address] [place] [address] Patricia Thompson DO 07/14/2024 Travel 06/27/2024 Refill [facility] [address] [place] [address] Name, MD Joey Other chronic pain 06/24/2024 Travel 06/18/2024 9:30 AM EST Office Visit [facility] [address] [place] [address] Nick, Jenniffer, OD 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 associated with type 2 diabetes mellitus, macular edema presence unspecified (CMS/HCC) (Primary Dx); History of panretinal photocoagulation; Epiretinal membrane (ERM) of both eyes; Macular atrophy, retinal; Pseudophakia of both eyes; Presbyopia of both eyes 06/18/2024 Travel from Last 3 Months Immunizations Name Administration [...] Description 10/07/2024 9:30 AM EDT Medication Management [facility] [address] [place] [phone] Rosa Deluca, DamionD [address] [place] [address] 10/15/2024 11:00 AM EDT Office Visit [facility] [address] [place] [address] Jeanmarie Simmsaris [address] [place] [address] 11/21/2024 9:00 AM EDT Office Visit [facility] [address] [place] [phone] Name, MD Joey [address] [place] [address] Health Maintenance Due Date Last Done Comments [...] EDT Chronic kidney disease, stage 4 (severe) (CMS/HCC) URINALYSIS, COMPLETE, WITH REFLEX TO CULTURE Routine 09/09/2024 1:49 PM EDT Dysuria POCT HEMOGLOBIN Routine 09/09/2024 1:20 PM EDT Chronic anemia POCT GLUCOSE Routine 09/09/2024 1:20 PM EDT Type 2 diabetes mellitus with hyperglycemia, with long-term current use of insulin ([facility]) [facility] US CAROTID ARTERY DUPLEX BILATERAL Routine 07/18/2024 8:03 AM EST [facility] US LOWER EXTREMITY VENOUS DUPLEX BILATERAL Routine 07/16/2024 8:50 AM EST POCT GLYCATED HEMOGLOBIN, TOTAL Routine 07/14/2024 9:46 AM EST Controlled type 2 diabetes mellitus with complication, with long-term current use of insulin ([facility]) POCT GLUCOSE Routine 07/14/2024 9:46 AM EST Controlled type 2 diabetes mellitus with complication, with long-term current use of insulin ([facility]) OCT, RETINA - OU - [...] Reflex to Culture (09/15/2024 2:46 PM EDT) Only the most recent of2 resultswithin the time period is included. Color Urine Yellow [facility] Appearance Urine Clear [facility] PH 5.0 5.0 - 9.0 [facility] Glucose Urine UA >=1000(A) Negative mg/dL [facility] Urine Blood Negative Negative [facility] Specific [place] - Urine 1.015 1.005 - 1.025 [facility] Urine Protein Negative Neg-Trace mg/dL [facility] Urine Ketones Negative Negative mg/dL [facility] Nitrite Urine Negative Negative [facility] Leukocyte Esterase Urine Negative Negative [facility] RBC Urine 0-2 0 - 2 /HPF [facility] Urine WBC 0-5 0 - 5 /HPF [facility] Urine Squamous Epithelial Cell 0-2 0 - 2 /HPF [facility] Urine Bacteria None Seen None Seen [facility] Hyaline Casts, Urine 3-5 0 - 2 /LPF [facility] Urine 09/15/2024 2:46 PM EDT 09/15/2024 3:59 PM EDT Narrative [facility] - 09/15/2024 4:15 PM EDT Urine, Clean Catch us Joey Name LAB URINE ORDERABLES Final Resul t [facility] [address] [place], [place] [phone] * (ABNORMAL) Basic Metabolic Panel (09/15/2024 2:46 PM EDT) Sodium 135 135 - 145 mmol/L [facility] Potassium 4.3 3.3 - 5.1 mmol/L [facility] Chloride 100 96 - 108 mmol/L [facility] Carbon Dioxide 24 22 - 29 mmol/L [facility] Anion Gap 15 12 - 20 [facility] Urea Nitrogen (BUN) 31(H) 9 - 16 mg/dL [facility] Creatinine, Serum 2.77(H) 0.5 - 1.4 mg/dL [facility] Estimated Glomerular Filt Rate 23 [facility] Comment:Chronic Kidney Disea se: Estimated GFR < 60 mL/min/1.33z7Mpiqtx Kidney Disease: Estimated GFR < 15 mL/min/1.73m2 Glucose 132(H) 60 - 115 mg/dL [facility] Calcium 8.8 8.4 - 10.2 mg/dL [facility] Blood Venous blood specimen / Unknown 09/15/2024 2:46 PM EDT 09/15/2024 4:00 PM EDT us Joey Barreto MD LAB BLOOD ORDERABLES Final Resul t [facility] [address] [place] [phone] * (ABNORMAL) POCT Glucose (09/09/2024 1:20 [...] Blood 09/09/2024 1:20 PM EDT us Joey Name MD POINT OF CARE TEST ENTER/EDIT OR DERABLES Final Result * VASC US Carotid Artery Duplex Bilateral (07/18/2024 8:03 AM EST) 07/18/2024 8:03 AM EST Narrative [facility] - 07/18/2024 8:04 AM EST ? [facility] ?[address] ?[place], [place] [address] ? Ultrasound Report ? Signed ? Patient: Esdras,Efrain ?MR#: [id number] ? : 1960 ?Acct:[id number] ? Age/Sex: 63 / M ?ADM Date: 07/17/24 ? Loc: HO.US ? Attending Dr: Demarcus Portillo MD ? Ordering Physician: Demarcus Portillo MD ?? Date of Service: 07/17/24 ?? Procedure(s): US carotid duplex BI ?? Accession Number(s): [id number] ? cc: Emperatriz Stoll NP; Demarcus Portillo [...] left external carotid arteries. There ?? are foxl-zz-jmkwlvpv atheromatous atheromatous plaques proximal left ?? internal carotid artery mild atheromatous plaques left common carotid ?? artery zuhu-gb-vpnvwmwp atheromatous plaques within the left carotid bulb. [...] DD/ 0803 ? TD/TT: 07/18/24 0803 ? Quality Engineer Medical Device: ? Procedure Note Donotuseinterpreter, Image - 07/18/[address] [address] Ultrasound Report Signed Patient: Efrain DewittMR#: [id number] : 1960cct:[id number] Age/Sex: 63 / MADM Date: 07/17/24 Loc: HO.US Attending Dr: Demarcus Portillo MD Ordering Physician: Demarcus Portillo MD Date of Service: 07/17/24 Procedure(s): US carotid duplex BI Accession Number(s): [id number] cc: Emperatriz Stoll NP; Demarcus Portillo MD CLINICAL HISTORY: atherosclerosis US [...] and left external carotid arteries. There are vmqn-ky-ucfxhbvm atheromatous atheromatous plaques proximal left internal carotid artery mild atheromatous plaques left common carotid artery wawc-sj-broatymx atheromatous plaques within the left carotid bulb. [...] 07/18/24 0804 DD/ 0803 TD/TT: 07/18/24 0803 Quality Engineer Medical Device: us [facility] External Provider CV VASC ULAR PROCEDURES Edited Result - Final [facility] [address] [place] [phone] * VASC US Lower Extremity Venous Duplex Bilateral (07/16/2024 8:50 AM EST) 07/16/2024 8:50 AM EST Narrative [facility] - 07/16/2024 10:13 AM EST ? [facility] ?[address] ?[place] [address] ? Ultrasound Report ? Signed ? Patient: Dewitt,Efrain ?MR#: [id number] ? : 1960 ?Acct:[id number] ? Age/Sex: 63 / M ?ADM Date: 07/16/24 ? Loc: HO.US ? Attending Dr: Demarcus Portillo MD ? Ordering Physician: Demarcus Portillo MD ?? Date of Service: 07/16/24 ?? Procedure(s): US venous duplex LE BI ?? Accession Number(s): [id number] ? cc: Emperatriz Stoll NP; Demarcus Portillo [...] DD/ 0850 ? TD/TT: 07/16/24 0919 ? Quality Engineer Medical Device: ? Procedure Note Nahed, Image - 07/16/[address] [address] Ultrasound Report Signed Patient: Anh Dewitt#: [id number] : 1Acct:[id number] Age/Sex: 63 / MADM Date: 07/16/24 Loc: HO. Attending Dr: Demarcus Portillo MD Ordering Physician: Dmearcus Portillo MD Date of Service: 07/16/24 Procedure(s): US venous duplex LE BI Accession Number(s): [id number] cc: Emperatriz Stoll WOOD SKI MAKER; Demarcus Portillo MD EXAMINATION: US LOWER [...] 07/16/24 1010 DD/ 0850 TD/TT: 07/16/24 0919 Quality Engineer Medical Device: [facility] External Provider CV VASC ULAR PROCEDURES Final Result [facility] [address] [place] [phone] * POCT HGB A1C (07/14/2024 9:46 AM EST) Hemoglobin A1C 6.0 4.0 - 6.0 % QC Media Lot # [id number] Lot# Expiration Date ,680 Blood 07/14/2024 9:46 AM EST Joey Barreto MD POINT OF CARE TEST ENTER/EDIT OR DERABLES Final Result * OCT, Retina - OU - Both Eyes (06/18/2024 9:30 AM EST) Narrative NickSauln, OD - 07/04/2024 11:39 AM EST OCT [...] Patient already followed by Dr. Abbott at [facility]. He will continue his frequent follow-ups there as scheduled. Will monitor here in 1 year. us Jenniffer Romero OD OPHTH TOMOGRAPHY Final Result * (ABNORMAL) Lipid Panel, Standard (06/02/2024 9:33 AM EST) Triglycerides 68 <150 mg/dL [facility] Comment:Desirable Triglyceri de: less than 150 mg/dLBorderline High Triglyceride 150-199 mg/dLHigh Triglyceride: 200-499 mg/dLVery High Triglyceride: greater than or equal to 5OO mg/dL Cholesterol 91 <200 mg/dL [facility] Comment:Desirable Cholestero l: less than 200 mg/dLBorderline High Cholesterol: 200-239 mg/dLHigh Cholesterol: greater than 239 mg/dL LDL Cholesterol Calculated 55 <100 mg/dL [facility] Comment:Desirable LDL: less than 100 mg/dLNear Optimal/Above Optimal LDL: 110- 129 mg/dLBorderline High LDL: 130-159 mg/dLHigh LDL: 160-189 mg/dLVery High LDL: greater than or equal to 190 mg/dL HDL Cholesterol 23(L) >40 mg/dL [facility] Comment:Desirable HDL: great er than 40 mg/dL Note: This HDL assay may give artificially low results in patients with liver disease. 06/02/2024 9:33 AM EST 06/02/2024 9:33 AM EST us Generic External Data Provider LAB BLOOD ORDERAB LES Final Result [facility] [address] [place] [phone] * Cytopath-cell enhanced (05/06/2024 4:37 PM EST) 05/06/2024 4:37 PM EST 05/07/2024 1:25 PM EST Narrative [facility] - 05/09/2024 9:42 AM EST ----- ------- Name: Efrain Dewitt ? Age/Sex: 63/M ? : 1960 Unit#: [id number] ?? Attend Dr: Elmira Mcdonald DIRECTOR CHILD ABUSE THERAPY-BC ?Re05/06/24 ?Status: DEP REF ? [facility] ?Disch: ? ----- ------- SPEC : [id number] ?RECD: 05/07/249 ? STATUS: ??SOUT ? REQ NUM: [id number] ? ARPAN: 05/06/24-163 ? SUBM DR: Elmira Mcdonald DIRECTOR CHILD ABUSE THERAPY-BC ? ENTERED: ??05/07/24-9583 ?SP TYPE: Cytology ? OTHR : Emperatriz Stoll WOOD [employer]I MAKER ? ORDERED: ??Cyto-enhanced ? Diagnosis ?? [...] is prepared. Copies To: ?? Emperatriz Stoll [employer]KER ?? [address] ?? [place] [address] ?? [phone] ?? Elmira Mcdonald DIRECTOR CHILD ABUSE THERAPY-BC ?? [facility] ?? [address] [place] [address] [facility] [address] ?? [place] [address] ?? [phone] ?? [email or web address] ----- ------- Signed (signature on file) Jeanmarie Chavez MD 05/09/24 0942 ? ----- ------- ? END OF REPORT ? us Generic External Data Provider LAB CYTOLOGY SPEEDY DONG Final Result [facility] [address] [place] [address] [phone] from Last 3 Months or Most Recently Relevant to Health Maintenance Insurance [facility] [place] [id number] Care Teams Petrophysicist Relationship Specialty Start Date End Date Name, MD Joey [address] [place] [address] PCP - General Internal Medicine 02/06/24 Rosa Deluca, DamionD [address] [place] [address] Pharmacist Internal Medicine 12/03/23
--- OUTSIDE RECORDS SUMMARY | 2024-09-15 17:16 | XMS_ITS | Patient Health Record ---
Author Organization [facility] Address [address] [facility] [address] [facility] [facility] [address] [place] [address] Care Team Providers Care Epic Radiant Analyst Name Role Phone FAUZIA ([facility]) VICENTE MERINO Primary Care Provider Unavailable Sheldon Pierre Unavailable [phone] ALLERGIES No Known Allergies REASON FOR [...] Problem Hyperkalemia (E87.5) Active confirmed H yperkalemia (02150084) Problem Metabolic acidemia (E87.2) Active confirmed Acidosis (91955351) Problem HTN (hypertension) (I10) Active confirmed Hypertension (28261594) Problem CAD (coronary artery disease) (I25.10) Active confirmed Coronary a rtery disease (57398071) Problem Anemia of renal disease (D63.1) Active confirmed Anemia of re nal disease (857216137) Problem DM (diabetes mellitus) (E11.9) Active confirmed DM - Diabe raymundo mellitus (79920555) Problem Diabetic retinopathy (E11.319) Active confirmed Diabetic retino marina (9289500) Problem Hyperphosphatemia (E83.39) Active confirmed Hyperphosphatem ia (90426315) Problem Secondary hyperparathyroidism (N25.81) Active confirmed Secondary hyperparathyroidism (54954914) Problem Vitamin D insufficiency (E55.9) Active confirmed 10556069 Problem Proteinuria (R80.9) Active confirmed Pr oteinuria (41553889) Problem Hyperlipidemia (E78.5) Active confirmed Hyperlipidemia (30577905) Problem Pneumococcal vaccine administered (Z23) Active confirmed Requires vaccination (737021507) Problem CKD stage G3b/A3, GF R 30-44 and albumin creatinine ratio >300 mg/g (N18.32) Active confirmed Chronic kidney disease stage 3B (disorder) (680764846) PLAN OF TREATMENT Pending Test Test Name [...] Insured Coverage Start Date Coverage End Date [employer] [address] [address] [place] [address] [id number] ELAINE FLEMING Self - patient is the insured Medicaid Secondary [address] [place], [place] [id number] ELAINE FLEMING Self - patient is the insured 9 MEDICAL (GENERAL) HISTORY Medical History History ICD Code Hypertension Diabetes High cholesterol Angina Depression Hyperkalemia E87.5 Hypokalemia E87.6 COVID-19 U07.1 Surgical History Surgery Date(Month/Year) Eye Laser Surgery 11/2017 Heart Catherization 11/2017 Heart Catherization w stent placecement 03/2017 Eye surgery 05/2013 cataract surgery , rt 03/2019 Cataract (bilateral) Hospitalization History Reason Date(Month/Year) chest pain @[facility] 11/2019
--- OUTSIDE RECORDS SUMMARY | 2024-09-15 17:16 | XMS_ITS | Patient Health Record ---
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) Active confirmed Problem Mild recurrent major depression (00171272) Major depressive disorder, recurrent, mild (F33.0) Active confirmed Problem Idiopathic periphera l autonomic neuropathy (84122439) Other idiopathic peripheral autonomic neuropathy (G90.09) Active confirmed Problem Chronic systolic hea rt failure (653815024) Chronic systolic (congestive) heart failure (I50.22) Active confirmed Problem Chronic kidney disea se stage 4 (398793809) Chronic kidney disease, stage 4 (severe) (N18.4) Active confirmed Problem Pure hypercholesterolemia (306639039) Pure hypercholester olemia, unspecified (E78.00) Active confirmed Problem Essential hypertensi on (50483436) Essential hypertension (I10) Active confirmed Plan Of Treatment Pending Test Test Name Order Date ESOPHAGOGASTRODUODENOSCOPY 12/12/2019 COLONOSCOPY AND BIOPSY 12/12/2019 COVID -19 Testing 12/12/2019 Insurance Providers Payer Name Payer Address Payer Phone Subscriber Number Group Number Insured Name Patient Relationship to Insured Coverage Start Date Coverage End Date [employer] [address] [address] [place] [address] [phone] [id number] ELAINE FLEMING Self - patient is the [...]
--- OUTSIDE RECORDS SUMMARY | 2024-09-15 17:16 | XMS_ITS | Encounter Summary ---
Author Organization [employer] Address [address] 7t [place] [address] Care Team Providers Care Supervisor Coke Handling Name Role Phone Emperatriz Stoll Primary Care Provider + Rosa Deluca PharmD Unavailable [phone] Name, Joey MERINO Primary Care Provider [phone] Reason for Visit * Reason Comments Med Refill Encounter Details Date Type Department Care Team ([facility] st Contact Info) Description 05/01/2023 Refill [facility] MEDICINE [address] [place] [address] Emperatriz Stoll FNP [address] [place], [place] [phone] Primary hypertension Social History Tobacco Use Types [...] 9:30 AM EDT Medication Management [facility] MEDICINE [address] [place] [address] Rosa Deluca, PharmD [address] [place] [address] 10/15/2024 11:00 AM EDT Office Visit [facility] ADULT DENTAL [address] [place] [address] Jeanmarie Simmsaris [address] [place] [address] 11/21/2024 9:00 AM EDT Office Visit [facility] MEDICINE [address] [place] [address] Name, MD Joey [address] [place] [address] documented as of this encounter Goals Goal [...] as of this encounter Care Teams Supervisor Coke Handling Relationship Specialty Start Date End Date Emperatriz Stoll FNP [address] [place] [address] PCP - General Family Medicine 07/19/22 02/05/24 Name, MD Joey [address] [place] [address] PCP - General Internal Medicine 02/06/24 Rosa Deluca, Martha [address] [place] [address] Pharmacist Internal Medicine 12/03/23 documented as of this encounter
--- OUTSIDE RECORDS SUMMARY | 2024-09-15 17:16 | XMS_ITS | Encounter Summary ---
Author Organization [facility] Address [address] 7t [place] [address] Care Team Providers Care Banjo Repairer Name Role Phone Emperatriz Stoll Primary Care Provider +-[phone] Rosa Deluca PharmD Unavailable [phone] Name, Joey MERINO Primary Care Provider [phone] Reason for Visit * Reason Comments Med Refill Encounter Details Date Type Department Care Team ([facility] st Contact Info) Description 01/12/2023 Refill [facility] MEDICINE [address] [place] [address] Emperatriz Stoll FNP [address] [place], [place] [phone] Other chronic pain Social History Tobacco Use [...] Description 10/07/2024 9:30 AM EDT Medication Management [facility] MEDICINE [address] [place] [address] Rosa Deluca PharmD 230 [place] [address] 10/15/2024 11:00 AM EDT Office Visit [facility] ADULT DENTAL [address] [place] [address] Mendez, Cassi [address] [place] [address] 11/21/2024 9:00 AM EDT Office Visit [facility] MEDICINE [address] [place] [address] Joey Barreto MD [address] [place] [address] documented as of this encounter Visit Diagnoses Diagnosis Other chronic pain documented in this encounter Additional Health Concerns Assessment Noted Time PHQ-9 Depression Total Score: 0 12/14/19 11:09 AM EDT documented as of this encounter Care Teams Banjo Repairer Relationship Specialty Start Date End Date Emperatriz Stoll FNP [address] [place] [address] PCP - General Family Medicine 07/19/22 02/05/24 Joey Barreto MD [address] [place] [phone] PCP - General Internal Medicine 02/06/24 Rosa Deluca PharmD [address] [place] [address] Pharmacist Internal Medicine 12/03/23 documented as of this encounter
--- OUTSIDE RECORDS SUMMARY | 2024-09-15 17:16 | XMS_ITS | Encounter Summary ---
Author Organization [facility] Address [address] 7t [place] [address] Care Team Providers Care Manager Country Name Role Phone Emperatriz Stoll Primary Care Provider +6 Rosa Deluca PharmD Unavailable [phone] Name, Joey MERINO Primary Care Provider [phone] Encounter Details Date Type Department Care Team ([facility] st Contact Info) Description 10/20/2022 Orders Only [facility] MEDICINE [address] [place] [address] Emperatriz Stoll FNP [address] [place], [place] [phone] Other chronic pain Social History Tobacco Use [...] Description 10/07/2024 9:30 AM EDT Medication Management [facility] MEDICINE [address] [place] [address] Rosa Deluca, PharmD [address] [place] [address] 10/15/2024 11:00 AM EDT Office Visit [facility] ADULT DENTAL [address] [place] [address] Mendez Cassi [address] [place] [address] 11/21/2024 9:00 AM EDT Office Visit [facility] MEDICINE [address] [place] [address] Joey Barreto MD [address] [place] [address] documented as of this encounter Procedures Procedure Name Priority Date/Time Associated Diagnosis Comments XR CHEST 2 VIEWS Routine 11/17/2022 4:30 PM EDT documented in this encounter Results * XR Chest 2 Views (11/17/2022 4:30 PM EDT) Anatomical Region Laterality Modality Chest Radiographic Mony ging 11/17/2022 4:30 PM EDT Narrative 11/24/2022 2:21 PM EDT ?[facility] ?[address] ?[place] [address] ?XRay Report ? Signed ? Patient: Dewitt,Efrain ?MR#: [id number] ? : 1960 ?Acct:[id number] ? Age/Sex: 61 / M ?ADM Date: 06/16/23 ? Loc: HO.HHCX ? Attending Dr: Emperatriz Stoll WARDROBE SUPERVISOR ? Ordering Physician: Emperatriz Stoll WARDROBE SUPERVISOR ?? Date of Service: 11/17/22 ?? Procedure(s): XR chest 2V ?? Accession Number(s): [id number] ? cc: Emperatriz Stoll WARDROBE SUPERVISOR ? EXAMINATION: ?? XR CHEST ? CLINICAL [...] 1418 ? DD/ 1630 ? TD/TT: ? Dispensing And Measuring Optician: DAVID ? Procedure Note Nahed, Image - 11/29/[address] [address] XRay Report Signed Patient: Efrain DewittMR#: [id number] : 1Acct:[id number] Age/Sex: 61 / MADM Date: 11/17/22 Loc: HO.HHCX Attending Dr: Emperatriz Stoll WARDROBE SUPERVISOR Ordering Physician: Emperatriz Stoll NP Date of Service: 11/17/22 Procedure(s): XR chest 2V Accession Number(s): [id number] cc: Emperatriz Stoll WARDROBE SUPERVISOR EXAMINATION: XR CHEST CLINICAL INFORMATION: Bilateral lower [...] in OV> 11/24/22 1418 DD/ 1630 TD/TT: Dispensing And Measuring Optician: DAVID [facility] External Provider IMG XR PROCEDURES Final Result documented in this encounter Visit Diagnoses Diagnosis Other chronic pain documented in this encounter Additional Health Concerns Assessment Noted Time PHQ-9 Depression Total Score: 7 07/19/19 23 3:07 PM EST documented as of this encounter Care Teams Manager Country Relationship Specialty Start Date End Date Emperatriz Stoll FNP [address] [place] [address] PCP - General Family Medicine 07/19/22 02/05/24 Name, MD Joey [address] [place] [address] PCP - General Internal Medicine 02/06/24 Rosa Deluca, DamionD [address] [place] [address] Pharmacist Internal Medicine 12/03/23 documented as of this encounter
--- OUTSIDE RECORDS SUMMARY | 2024-09-15 17:16 | XMS_ITS | Encounter Summary ---
Author Organization [employer] Address [address] [facility] 7t [place] [address] Care Team Providers Care Chair Inspector Name Role Phone Emperatriz Stoll Primary Care Provider +2 Rosa Deluca PharmD Unavailable [phone] Name, Joey MERINO Primary Care Provider [phone] Reason for Referral * Consultation (Routine) - Closed Specialty Diagnoses / Procedures Referred By Justina willis Referred To Contact Nutrition Diagnoses Controlled type 2 diabetes mellitus without complication, with long-term current use of insulin (CMS/HCC) Emperatriz Stoll FNP [address] [place] [address] Phone: tel: fax: Referral ID Status Reason Start Date Expiration Date V isits Requested Visits Authorized [id number] Closed Specialty Services Required 11/06/2023 11/05/2024 1 1 Encounter Details Date Type Department Care Team (Late st Contact Info) Description 11/06/2023 Orders Only [facility] [address] [place] [address] Emperatriz Stoll FNP [address] [place] [address] Controlled type 2 diabetes mellitus without complication, [...] Description 10/07/2024 9:30 AM EDT Medication Management [facility] [address] [place] [address] Rosa Deluca, PharmD 230 [place] [address] 10/15/2024 11:00 AM EDT Office Visit [facility] ADULT DENTAL [address] [place] [address] Cassi Simms [address] [place] [address] 11/21/2024 9:00 AM EDT Office Visit [facility] [address] [facility] [place] [address] [place] [address] Scheduled Referrals Name Type Priority Associated Diagnoses Orde r Schedule Referral to Nutrition Therapy Outpatient Referral Routine Controlled type 2 diabetes mellitus without complication, with long-term current use of insulin (CMS/[facility]) Expected: 11/06/2023 (Approximate), Expires: 11/05/2024 documented as [...] complication, with long-term current use of insulin (CMS/[facility])- Primary documented in this encounter Additional Health Concerns Assessment Noted Time PHQ-9 Depression Total Score: 0 12/14/19 23 11:09 AM EDT documented as of this encounter Care Teams Chair Inspector Relationship Specialty Start Date End Date [place]per[place] [address] PCP - General Family Medicine 07/19/22 02/05/24 [place] [address] PCP - General Internal Medicine 02/06/24 Rosa Deluca PharmD [address] [place] [address] Pharmacist Internal Medicine 12/03/23 documented as of this encounter
--- OUTSIDE RECORDS SUMMARY | 2024-09-15 17:16 | XMS_ITS | Encounter Summary ---
Author Organization [facility] Address [address] 7t [place] [address] Care Team Providers Care Respiratory Supervisor Name Role Phone Emperatriz Stoll Primary Care Provider +3 Rosa Deluca PharmD Unavailable [phone] Name, Joey MERINO Primary Care Provider [phone] Encounter Details Date Type Department Care Team ([facility] Contact Info) Description 08/21/2022 Orders Only [facility] MEDICINE [address] [place] [address] Emperatriz Stoll FNP [address] [place], [place] [phone] Social History Tobacco Use Types Packs/Day Years [...] Description 10/07/2024 9:30 AM EDT Medication Management [facility] MEDICINE [address] [place] [address] Rosa Deluca PharmD [address] [place] 10/15/2024 11:00 AM EDT Office Visit [facility] ADULT DENTAL [address] [place] [address] Mendez, Cassi [address] [place] [address] 11/21/2024 9:00 AM EDT Office Visit [facility] MEDICINE [address] [place] [address] Joey Barreto MD [address] [place] [address] documented as of this encounter Visit Diagnoses Not on filedocumented in this encounter Additional Health Concerns Assessment Noted Time PHQ-9 Depression Total Score: 7 07/19/19 23 3:07 PM EST documented as of this encounter Care Teams Respiratory Supervisor Relationship Specialty Start Date End Date Emperatriz Stoll FNP [address] [place] [address] PCP - General Family Medicine 07/19/22 02/05/24 Joey Barreto MD [address] [place] [address] PCP - General Internal Medicine 02/06/24 Rosa Deluca PharmD [address] [place] [address] Pharmacist Internal Medicine 12/03/23 documented as of this encounter
--- OUTSIDE RECORDS SUMMARY | 2024-09-15 17:16 | XMS_ITS | Encounter Summary ---
Author Organization [employer] Address [address] 7t [place] [address] Care Team Providers Care Moisture Conditioner Operator Name Role Phone Emperatriz Stoll Primary Care Provider + Rosa Deluca PharmD Unavailable [phone] Name, Joey MERINO Primary Care Provider [phone] Reason for Visit * Reason Comments Med Refill Encounter Details Date Type Department Care Team ([facility] st Contact Info) Description 2023 Refill [facility] MEDICINE 230 [place] [address] Emperatriz Stoll FNP [address] [place], [place] [phone] Social History Tobacco Use Types Packs/Day Years [...] EDT Medication Management [facility] MEDICINE [address] [place] [address] Rosa Deluca, PharmD [address] [place] [address] 10/15/2024 11:00 AM EDT Office Visit [facility] ADULT DENTAL [address] [place] [address] Cassi Simms [address] [place] [address] 11/21/2024 9:00 AM EDT Office Visit [facility] MEDICINE [address] [place] [address] Name, MD Joey [address] [place] [address] documented as of this encounter Goals Goal [...] documented as of this encounter Care Teams Moisture Conditioner Operator Relationship Specialty Start Date End Date Emperatriz Stoll FNP [address] [place] [address] PCP - General Family Medicine 07/19/22 02/05/24 Name, MD Joey [address] [place] [address] PCP - General Internal Medicine 02/06/24 Rosa Deluca, DamionD [address] [place] [address] Pharmacist Internal Medicine 12/03/23 documented as of this encounter
--- OUTSIDE RECORDS SUMMARY | 2024-09-15 17:16 | XMS_ITS | Encounter Summary ---
Author Organization [employer] Address [address] 7t [place] [address] Care Team Providers Care Group Social Worker Name Role Phone Rosa Deluca PharmD Unavailable [phone] NameJoey MD Primary Care Provider [phone] Reason for Visit * Reason Onset Date Comments Med Refill 09/12/2024 Encounter Details Date Type Department Care Team (Late st Contact Info) Description 09/12/2024 Refill [facility] MEDICINE [address] [place] [address] Name, MD Joey [address] [place] [address] Hypertension, unspecified type (Primary Dx); Coronary arteriosclerosis Social History Tobacco Use Types Packs/Day Years [...] Telephone Encounter - Lachelle Frausto RN - 09/12/2024 2:33 PM EDT Incoming message from Dwight at [facility] pharmacy requesting med refills for meds started at [facility]: Amiodarone 200 mg po BID, clopidogrel 75 mg daily, tamsulosin 0.4 mg po at bedtime, spironolactone 25 mg po every morning and carvedilol 3.125 mg BID. States pt is due for medbox refill and will run out ofmeds by Sunday and f/u with cardiology is not scheduled until 09/26/24. Advised will request refills from pcp. documented in this encounter Plan of Treatment Upcoming Encounters Date Type Department Care Team (Late st Contact Info) Description 10/07/2024 9:30 AM EDT Medication Management [facility] MEDICINE [address] [place] [address] Rosa Deluca, PharmD [address] [place], [place] [phone] 10/15/2024 11:00 AM EDT Office Visit [facility] ADULT DENTAL [address] [place] [address] Jeanmarie Simmsaris [address] [place] [address] 11/21/2024 9:00 AM EDT Office Visit [facility] MEDICINE [address] [place] [address] Name, MD Joey [address] [place] [address] documented as of this encounter Goals Goal Patient Goal Type Associated Problems Recent Progress Patient-Stated? Author Blood Pressure < 140/90 Blood Pressure 109/62(2024 1:18 PM EDT) No Donald Johnson Hemoglobin A1c < 7.5 Result Component 6(07/14/2024 9:46 AM EST) No Donald Johnson documented as of this encounter Visit Diagnoses Diagnosis Hypertension, unspecified type- Primary Coronary arteriosclerosis Coronary atherosclerosis of unspecified type of vessel, [place] or graft documented in this encounter Additional Health Concerns Assessment Noted Time PHQ-9 Depression Total Score: 8 06/06/19 25 11:44 AM EST documented as of this encounter Care Teams Group Social Worker Relationship Specialty Start Date End Date Name, [place] [address] PCP - General Internal Medicine 02/06/24 Rosa Deluca, Martha [address] [place] [address] Pharmacist Internal Medicine 12/03/23 documented as of this encounter
--- OUTSIDE RECORDS SUMMARY | 2024-09-15 17:16 | XMS_ITS | Encounter Summary ---
Author Organization [employer] Address [address] 7t [place] [address] Care Team Providers Care Senior Administrative Support Name Role Phone Emperatriz Stoll Primary Care Provider +0 Rosa Deluca PharmD Unavailable [phone] Name, Joey MERINO Primary Care Provider [phone] Encounter Details Date Type Department Care Team (Late st Contact Info) Description 04/06/2023 Orders Only [facility] MED & PEDS [address] [place] [address] Emperatriz Stoll FNP [address] [place] [address] Social History Tobacco Use Types Packs/Day Years [...] Description 10/07/2024 9:30 AM EDT Medication Management [facility] MEDICINE [address] [place] [address] Rosa Deluca PharmD [address] [place] [address] 10/15/2024 11:00 AM EDT Office Visit [facility] ADULT DENTAL [address] [place] [address] Cassi Simms [address] [place] [address] 11/21/2024 9:00 AM EDT Office Visit [facility] MEDICINE [address] [place] [address] Name, MD Joey [address] [place] [address] documented as of this encounter Goals Goal [...] as of this encounter Care Teams Senior Administrative Support Relationship Specialty Start Date End Date Emperatriz Stoll FNP [address] [place] [address] PCP - General Family Medicine 07/19/22 02/05/24 Name, MD Joey [address] [place] [address] PCP - General Internal Medicine 02/06/24 Rosa Deluca, Martha [address] [place] [address] Pharmacist Internal Medicine 12/03/23 documented as of this encounter
--- OUTSIDE RECORDS SUMMARY | 2024-09-15 17:16 | XMS_ITS | Encounter Summary ---
Author Organization [employer] Address [address] [facility] 7t [place] [address] Care Team Providers Care Airfield Defence Guard Name Role Phone Rosa Deluca PharmD Unavailable [phone] NameJoey MD Primary Care Provider [phone] Reason for Visit * Reason Onset Date Comments Appointment Request 08/25/2024 Encounter Details Date Type Department Care Team ([facility] Contact Info) Description 08/25/2024 Telephone [facility] MEDICINE [address] [place] [address] Name, MD Joey [address] [place] [address] Appointment Request Social History Tobacco Use Types [...] 08/25/2024 2:03 PM EDT Pt discharged from [facility] 08/21/24 Dx: CKD, Chronic Anemia, CAD, S/P [...] Got Surgery done 08/15/24. Contact pt at [phone] documented in this encounter Plan of Treatment Upcoming Encounters Date Type Department Care Team (Late st Contact Info) Description 10/07/2024 9:30 AM EDT Medication Management [address] [address] Rosa Deluca, PharmD [address] [place] [address] 10/15/2024 11:00 AM EDT Office Visit [facility] ADULT DENTAL [address] [place] [address] Jeanmarie Simmsaris [address] [place] [address] 11/21/2024 9:00 AM EDT Office Visit [facility] MEDICINE [address] [place] [address] Name, MD Joey [address] [place] [address] documented as of this encounter Goals Goal [...] documented as of this encounter Care Teams Airfield Defence Guard Relationship Specialty Start Date End Date NameJoey MD [address] [place] [address] PCP - General Internal Medicine 02/06/24 Rosa Deluca, DamionD [address] [place] [address] Pharmacist Internal Medicine 12/03/23 documented as of this encounter
--- OUTSIDE RECORDS SUMMARY | 2024-09-15 17:16 | XMS_ITS | Clinical Summary ---
Author Organization [facility] Address [address] [place] [address] Phone Care Team Providers Care Ceramic Products Sales Engineer Name Role Phone Name, Joey MERINO Primary Care Provider [phone] Allergies No known active allergies Medications carvedilol [...] MG/DOSE, SC) Inject under the skin Active Active Problems Problem Noted Date Diagnosed [...] Office Visit [facility] [address] [address] Patricia Fulton ARNP Stage 3b chronic kidney disease (HCC) (Primary Dx); Hypertension; Hyperkalemia 08/04/2024 Orders Only [facility] [address] [place] [address] Kevin Gates MD Chronic kidney disease, stage 4 (severe) (HCC); Renal osteodystrophy 07/23/2024 Orders Only [facility] [address] [address] Patricia Fulton ARNP Chronic kidney disease, stage 4 (severe) (HCC); Hypertension; Hyperkalemia 07/22/2024 Documentation Only [facility] [address] [address] Anali Neely MA 07/16/2024 3:15 PM EST Office Visit [facility] [address] [address] Patricia Fulton ARNP Chronic kidney disease, stage 4 (severe) (HCC) (Primary Dx); Hypertension; Renal osteodystrophy; Hyperkalemia from Last 3 Months Immunizations Immunization Administration Dates Next Due Pfizer SARS-COV-2 05/18/2021 [...] [facility]. [address] [address] Kevin Gates MD [address] [address] 01/12/2025 1:15 PM EDT Office Visit [facility]. [address] [address] Kevin Gates MD [address] [address] Health Maintenance Due Date Last [...] 05/12/2024, 12/04/2023, Additional history exists Pneumococcal Vaccine: 50+ Years Completed Pneumococcal Vaccine: Peds ( 0 to 5 Years) and At-Risk Patients (6 to 49 Years) Discontinued 01/07/2024 Influenza Vaccine Completed 08/06/2024 Procedures Procedure Name Priority Date/Time Associated Diagnosis Comments BASIC METABOLIC PANEL Routine 08/11/2024 10:20 AM EDT Chronic kidney disease, stage 4 (severe) (HCC) Hypertension Hyperkalemia EXT RESULT ENTRY Routine 07/22/2024 EXT RESULT ENTRY Routine 07/08/2024 from Last 3 Months Results * (ABNORMAL) Basic metabolic panel (08/11/2024 10:20 AM EDT) Glucose 72 70 - 99 mg/dL [facility] BUN 25 8 - 27 mg/dL [facility] Creatinine 2.16(H) 0.76 - 1.27 mg/dL [facility] eGFR CKD-EPI CR 2020 34(L) >59 mL/min/1.7 3 [facility] BUN/Creatinine Ratio 12 10 - 24 [facility] Sodium 141 134 - 144 mmol/L [facility] Potassium 4.8 3.5 - 5.2 mmol/L [facility] Chloride 102 96 - 106 mmol/L [facility] Bicarbonate (CO2) 21 20 - 29 mmol/L [facility] Calcium 8.9 8.6 - 10.2 mg/dL [facility] Blood (Blood, Venous) 08/11/2024 10:20 AM EDT 08/11/2024 Patricia Fulton [facility] LAB BLOOD ORDERABLES Final Result [facility] [address] [place] [address] * (ABNORMAL) EXT RESULT ENTRY (07/22/2024) Only the most recent of2 resultswithin the time period is included. Sodium 142 137 - 147 Potassium 5.2 3.4 - 5.5 Carbon Dioxide 25 mmol/L BUN 29(A) 4 - 21 mg/dL Creatinine 1.82(A) 0.60 - 1.30 mg/dL eGFR Non-Afr Kosovan 38 07/22/2024 us Historical Provider LAB BLOOD ORDERABLES Malena l Result from Last 3 Months Insurance [facility] One Care Dual SNP ([id number]) [place] [id number] One Care Dual SNP ([id number]) [place] [id number] Care Teams Ceramic Products Sales Engineer Relationship Specialty Start Date End Date Name, MD Joey [address] [place] [address] PCP - General Internal Medicine 07/16/24
== END 2024-09-15 14:45 | disposition home or self-care (01) ==
LOC: HO.HHCL 14:44
PROVIDERS: Visit Provider Internal Medicine Geriatric Medicine
DX: N18.4 Chronic kidney disease, stage 4 (severe) (principal); R31.21 Asymptomatic microscopic hematuria
CPT/HCPCS: 36415; 80048; 81001

== ENCOUNTER → 2024-09-26 08:40 | Outpatient (BNVA) | payer OTHER, SELFPAY | PROVIDERS: PCP Nurse Practitioner Family; Visit Provider Nurse Practitioner Family | DX: I25.10 Atherosclerotic heart disease of native coronary artery without angina pectoris (principal); I10 Essential (primary) hypertension; I42.9 Cardiomyopathy, unspecified; Z95.1 Presence of aortocoronary bypass graft; Z95.5 Presence of coronary angioplasty implant and graft; Z98.890 Other specified postprocedural states | CPT/HCPCS: 99212 ==

== ENCOUNTER 2024-09-26 09:05 | Outpatient (AMB) | payer OTHER, SELFPAY ==
--- OUTSIDE RECORDS SUMMARY | 2024-09-26 08:45 | XMS_ITS | Clinical Summary ---
Author Organization [facility] Address [address] [place] [address] Phone Care Team Providers Care Clinical Laboratory Technologist Name Role Phone Name, Joey MERINO Primary Care Provider [phone] Allergies No known active allergies Medications carvedilol [...] Office Visit [facility] [address] [address] Patricia Fulton ARNP Stage 3b chronic kidney disease (HCC) (Primary Dx); Hypertension; Hyperkalemia 08/04/2024 Orders Only [facility] [address] [place] [address] Kevin Gates MD Chronic kidney disease, stage 4 (severe) (HCC); Renal osteodystrophy 07/23/2024 Orders Only [facility] [address] [address] Patricia Fulton ARNP Chronic kidney disease, stage 4 (severe) (HCC); Hypertension; Hyperkalemia 07/22/2024 Documentation Only [facility] [address] [address] Anali Neely MA 07/16/2024 3:15 PM EST Office Visit [facility] [address] [address] Patricia Fulton ARNP Chronic kidney [...] Visit [facility]. [address] [address] Kevin Gates MD [address] [address] 01/12/2025 1:15 PM EDT Office Visit [facility]. [address] [address] Kevin Gates MD [address] [address] Health Maintenance Due Date Last [...] EDT) Glucose 72 70 - 99 mg/dL [facility] BUN 25 8 - 27 mg/dL [facility] Creatinine 2.16(H) 0.76 - 1.27 mg/dL [facility] eGFR CKD-EPI CR 2020 34(L) >59 mL/min/1.7 3 [facility] BUN/Creatinine Ratio 12 10 - 24 [facility] Sodium 141 134 - 144 mmol/L [facility] Potassium 4.8 3.5 - 5.2 mmol/L [facility] Chloride 102 96 - 106 mmol/L [facility] Bicarbonate (CO2) 21 20 - 29 mmol/L [facility] Calcium 8.9 8.6 - 10.2 mg/dL [facility] Blood (Blood, Venous) 08/11/2024 10:20 AM EDT 08/11/2024 Patricia Fulton [facility] LAB BLOOD ORDERABLES Final Result [facility] [address] [place] [address] * (ABNORMAL) EXT RESULT ENTRY (07/22/2024) Only the most recent of2 resultswithin the time period is included. Sodium 142 137 - 147 Potassium 5.2 3.4 - 5.5 Carbon Dioxide 25 mmol/L BUN 29(A) 4 - 21 mg/dL Creatinine 1.82(A) 0.60 - 1.30 mg/dL eGFR Non-Afr Croatian 38 07/22/2024 us Historical Provider LAB BLOOD ORDERABLES Malena l Result from Last 3 Months Insurance [facility] One Care Dual SNP ([id number]) [place] [id number] One Care Dual SNP ([id number]) [place] [id number] Care Teams Clinical Laboratory Technologist Relationship Specialty Start Date End Date Name, MD Joey [address] [place] [address] PCP - General Internal Medicine 07/16/24
--- OUTSIDE RECORDS SUMMARY | 2024-09-26 08:45 | XMS_ITS | Encounter Summary ---
Author Organization [facility] Address [address] [place] [address] Phone Care Team Providers Care Extractor Plant Operator Name Role Phone Name, Joey MERINO Primary Care Provider [phone] Encounter Details Date Type Department Care Team (Late st Contact Info) Description 08/09/2022 Telephone [facility] [address] [facility] [address] [place] [address] Patricia Deras Social History Tobacco [...] [facility] [address] [phone] Kevin Gates MD [address] [phone] 01/12/2025 1:15 PM EDT Office Visit [facility] [address] [phone] Kevin Gates MD [address] [address] documented as of this encounter Visit Diagnoses Not on filedocumented in this encounter Care Teams Extractor Plant Operator Relationship Specialty Start Date End Date Name, MD Joey [address] [place] [address] PCP - General Internal Medicine 07/16/24 documented as of this encounter
[2024-09-26 09:12] VITALS: BP 100/52; PULSE 73; BMI 29.5
--- NOTE | 2024-09-26 09:12 | A.OFFVIS_ITS ---
Vital Signs 09/26/24 09:12 Height 5 ft 5 in Weight 177 lb 4.026 oz BMI 29.5 BP 100/52 L Blood Pressure Location Lt brachial Position Sitting Pulse 73 Pulse Source Pulse Oximeter Intake Visit Reasons: followup [place] cardiac [place] [facility] Data Communications Software Consultant Required: Yes Data Communications Software Consultant Language: Recruiting Assistant Name: voice alvarenga [id number] Allergies No Known Allergies Allergy (Verified 09/26/24 09:15) Medication List - Last Reconciled 09/26/24 by RUTHANN Hobbs ascorbic acid (vitamin C) (Vitamin C) 500 mg PO DAILY aspirin (Pilar Low Dose Aspirin) 81 mg PO DAILY atorvastatin 80 mg PO DAILY 90 days blood sugar diagnostic ([place] Ultra Test strips) As directed carvedilol 3.125 mg PO BID dapagliflozin propanediol (Farxiga) 10 mg PO DAILY 30 days ezetimibe (Zetia) 10 mg PO DAILY folic acid 1 mg PO DAILY gabapentin 300 mg PO BID insulin glargine (Lantus Solostar U-100 Insulin) units subcut isosorbide mononitrate ER 60 mg PO DAILY sacubitril-valsartan 24-26 mg (Entresto) 1 tab PO BID semaglutide (Ozempic) 0.5 mg subcut QWEEK spironolactone 25 mg PO DAILY tramadol 50 mg PO Q8H PRN tramadol 50 mg PO DAILY HPI HPI followup after cardiac surgery [place] [facility] Details: Efrain is a 63-year-old male with past medical history of hypertension, h yperlipidemia, diabetes, chronic kidney disease, prior smoking, CAD with ACS 04/2023 with ARI to OM2 who recently had abnormal stress test and underwent cardiac catheterization showing significant three-vessel coronary artery disease. He was referred to Cardiac surgery and underwent a three-vessel coronary artery bypass grafting on 08/13/2024. Today he reports that he has been doing well since his surgery. He denies having any chest discomfort. He has been attending cardiac rehab at [facility]. He denies shortness of breath, PND, orthopnea or edema. No heart palpitations, lightheadedness, presyncope, syncope. His chest incision line is fully intact. He has been taking his medications as directed. He feels that he is doing very well. Certified certified court/medical interpreter used. [facility] Medical History ACS (acute coronary syndrome) Diabetic retinopathy Diabetes Hypertension CKD (chronic kidney disease) Exertional chest pain Smoker Surgical History Hx of CABG Stented coronary artery Hx of cardiac catheterization Family History Mother No problems noted. Father No problems noted. Social History e-Cigarette/Vaping Use: Never Used Current occupational status: unemployed Cognitive needs: No Hearing needs: No Vision needs: Yes (wears glasses) Review of Systems Const All systems reviewed & are unremarkable except as noted in HPI and below ENT Denies dizziness Card Denies chest pain, Denies chest pain at rest, Denies chest pain with activity, Denies rapid heart rate, Denies pedal edema, Denies edema, Denies leg edema, Denies lightheadedness, Denies palpitations, Denies dyspnea, Denies dyspnea on exertion and Denies orthopnea Resp Denies cough, Denies dyspnea and Denies dyspnea on exertion GI Denies hematochezia and Denies change in stool character Musc Denies abnormal gait, Denies limited range of motion, Denies muscle cramps, Denies muscle weakness, Denies numbness, Denies radiating pain into limb, Denies stiffness and Denies tingling Neuro Denies abnormal gait, Denies dizziness, Denies numbness and Denies tingling Endo Denies palpitations Physical Exam Vital Signs: Last Vital Signs Pulse 73 09/26/24 09:12 BP 100/52 L 09/26/24 09:12 BMI result Body Mass Index 29.5 Const General: cooperative, healthy appearing, comfortable and no acute distress Orientation/consciousness: patient oriented x3 Neck Neck: Yes normal visual inspection and Yes no JVD Chest Other: sternal incision well approximated, No redness, swelling or drainage noted, drain sites healing well, one small scab in place Resp Effort & Inspection: normal respiratory effort Auscultation: clear to auscultation bilaterally, no crackles, no rales, no rhonchi and no wheezes Cardio Jugular venous distension: no JVD Rate: regular rate Rhythm: regular rhythm Heart sounds: S1 normal heart sound present, S2 normal heart sound present, no murmurs and no rubs Neuro General: patient oriented x3 Extrem General: Yes normal to inspection and No no pedal edema Psych Appearance: grossly normal Mental Status: mental status grossly normal Speech and movement: Normal speech and movement present Assessment & Plan Assessment & Plan (1) CAD (coronary artery disease): Code(s): I25.10 - Atherosclerotic heart disease of [place] coronary artery without angina pectoris Category: Medical Plan: History of CAD with ACS 04/2023 with cardiac catheterization and ARI placed to OM2. He had an echocardiogram 02/22/2024 showing EF 35-40%, grade 1 diastolic dysfunction with regional wall motion abnormality consistent with ischemic cardiomyopathy. (prior echo 08/24/2023 showed EF 51% with inferior and anterior lateral wall motion abnormalities) this led to a nuclear stress test was done on 05/08/2024 which was abnormal, leading to cardiac catheterization on 06/12/2024 showing significant CAD with recommendation for coronary artery bypass grafting. He underwent three-vessel coronary artery bypass grafting on 08/13/2024 and is currently doing well in his recovery. Continue cardiac rehab. Will check echocardiogram to assess EF and wall motion. Continue aspirin indefinitely. Continue atorvastatin and Zetia with ideal LDL goal less than 70. Continue carvedilol. Cardiology follow-up 3 months, sooner if needed. (2) S/P CABG x 3: Comment: 08/15/24 WATTERS to LAD, SVG to PDA, RA to OM Code(s): Z95.1 - Presence of aortocoronary bypass graft Category: Surgical (3) S/P cardiac catheterization: Comment: 06/12/2024, left main normal, lad mid 70% stenosis, IFR 0.83, OM1 ISR 90%, OM2 stent present, proximal RCA 35% stenosis, right PDA 85% stenosis, Coronary artery bypass grafting referral made Code(s): Z98.890 - Other specified postprocedural states Category: Surgical (4) Stented coronary artery: Comment: April 2023 present with acute coronary syndrome undergoing drug-eluting stent to OM2 for 95% stenosis. Mild disease in RCA and LAD. 85% lesion in the proximal section RPDA Code(s): Z95.5 - Presence of coronary angioplasty implant and graft Category: Surgical (5) Hypertension: Code(s): I10 - Essential (primary) hypertension Category: Medical Plan: Blood pressure goal less than 130/80. Blood pressure today low side, asymptomatic. No med changes made. (6) Cardiomyopathy: Code(s): I42.9 - Cardiomyopathy, unspecified Category: Medical Plan: Last echo with new cardiomyopathy. He has since undergone three-vessel coronary artery bypass grafting. He does not appear fluid overloaded on exam today. I will update echocardiogram. Continue carvedilol, Entresto and Farxiga for neurohormonal modulation. Plan Time spent on chart review, documentation, interviewed assessment Orders: Orders CA echo transthoracic complete Today Z95.1 - Presence of aortocoronary bypass graft Coding Level of Care Code Est Pt Level 4 (89505) Complex EM visit Add On G2211 Diagnoses CAD (coronary artery disease) I25.10 S/P CABG x 3 Z95.1 S/P cardiac catheterization Z98.890 Stented coronary artery Z95.5 Hypertension I10 Cardiomyopathy I42.9 Time Spent (min) 30
--- OUTSIDE RECORDS SUMMARY | 2024-09-26 09:16 | XMS_ITS | Clinical Summary ---
Author Organization [facility] Address [address] [place] [address] Phone Care Team Providers Care Shower Maid Name Role Phone Name, Joey MERINO Primary Care Provider [phone] Allergies No known active allergies Medications carvedilol [...] Office Visit [facility] [address] [address] Patricia Fulton ARNP Stage 3b chronic kidney disease (HCC) (Primary Dx); Hypertension; Hyperkalemia 08/04/2024 Orders Only [facility] [address] [place] [address] Kevin Gates MD Chronic kidney disease, stage 4 (severe) (HCC); Renal osteodystrophy 07/23/2024 Orders Only [facility] [address] [address] Patricia Fulton ARNP Chronic kidney disease, stage 4 (severe) (HCC); Hypertension; Hyperkalemia 07/22/2024 Documentation Only [facility] [address] [address] Anali Neely MA 07/16/2024 3:15 PM EST Office Visit [facility] [address] [address] Patricia Fulton ARNP Chronic kidney [...] [facility]. [address] [address] Kevin Gates MD [address] [address] 01/12/2025 1:15 PM EDT Office Visit [facility]. [address] [address] Kevin Gates MD [address] [address] Health Maintenance Due Date Last [...] EDT) Glucose 72 70 - 99 mg/dL [facility] BUN 25 8 - 27 mg/dL [facility] Creatinine 2.16(H) 0.76 - 1.27 mg/dL [facility] eGFR CKD-EPI CR 2020 34(L) >59 mL/min/1.7 3 [facility] BUN/Creatinine Ratio 12 10 - 24 [facility] Sodium 141 134 - 144 mmol/L [facility] Potassium 4.8 3.5 - 5.2 mmol/L [facility] Chloride 102 96 - 106 mmol/L [facility] Bicarbonate (CO2) 21 20 - 29 mmol/L [facility] Calcium 8.9 8.6 - 10.2 mg/dL [facility] Blood (Blood, Venous) 08/11/2024 10:20 AM EDT 08/11/2024 Patricia Fulton [facility] LAB BLOOD ORDERABLES Final Result [facility] [address] [place] [address] * (ABNORMAL) EXT RESULT ENTRY (07/22/2024) Only the most recent of2 resultswithin the time period is included. Sodium 142 137 - 147 Potassium 5.2 3.4 - 5.5 Carbon Dioxide 25 mmol/L BUN 29(A) 4 - 21 mg/dL Creatinine 1.82(A) 0.60 - 1.30 mg/dL eGFR Non-Afr Hungarian 38 07/22/2024 us Historical Provider LAB BLOOD ORDERABLES Malena l Result from Last 3 Months Insurance [facility] One Care Dual SNP ([id number]) [place] [id number] One Care Dual SNP ([id number]) [place] [id number] Care Teams Shower Maid Relationship Specialty Start Date End Date Name, MD Joey [address] [place] [address] PCP - General Internal Medicine 07/16/24
--- OUTSIDE RECORDS SUMMARY | 2024-09-26 09:16 | XMS_ITS | Encounter Summary ---
Author Organization [facility] Address [address] [place] [address] Phone Care Team Providers Care Flatbed Driver Name Role Phone Name, Joey MERINO Primary Care Provider [phone] Encounter Details Date Type Department Care Team (Late st Contact Info) Description 08/09/2022 Telephone [facility] [address] [facility] [address] [place] [address] Patricia Deras Social History Tobacco [...] Office Visit [facility]. [address] [phone] Kevin Gates MD [address] [phone] 01/12/2025 1:15 PM EDT Office Visit [facility] [address] [phone] Kevin Gates MD [address] [address] documented as of this encounter Visit Diagnoses Not on filedocumented in this encounter Care Teams Flatbed Driver Relationship Specialty Start Date End Date Name, MD Joey [address] [place] [address] PCP - General Internal Medicine 07/16/24 documented as of this encounter
== END 2024-09-26 09:45 | disposition home or self-care (01) ==
PROVIDERS: PCP Nurse Practitioner Family; Visit Provider Nurse Practitioner Family
DX: I25.10 Atherosclerotic heart disease of native coronary artery without angina pectoris (principal); Z95.1 Presence of aortocoronary bypass graft; Z98.890 Other specified postprocedural states; Z95.5 Presence of coronary angioplasty implant and graft; I10 Essential (primary) hypertension; I42.9 Cardiomyopathy, unspecified
CPT/HCPCS: 99214; G2211

== ENCOUNTER 2024-10-24 08:52 | Emergency (ER) | payer OTHER, SELFPAY ==
--- NOTE | ~2024-10-24 | XR_ITS ---
EXAMINATION: XR CHEST 1 VIEW HISTORY: cp COMPARISON: Comparison is made with the prior examination dated 04/10/2023. FINDINGS: A single AP portable view of the chest performed at 9:10 AM is submitted. There are low lung volumes. The lungs are clear. There is no pleural effusion, pneumothorax, or pulmonary vascular congestion. The heart is normal in size. The patient is status post median sternotomy and CABG. There is degenerative disc disease of the spine. XR/XR chest 1V IMPRESSION: Low lung volumes. No acute cardiopulmonary abnormality. Electronically signed by: Paul Hsieh MD 10/24/2024 09:38 AM EDT
--- NOTE | 2024-10-24 08:53 | ECG_ITS ---
Test Reason : dizziness Blood Pressure : */* mmHG Vent. Rate : 73 BPM Atrial Rate : 73 BPM P-R Int : 188 ms QRS Dur : 98 ms QT Int : 424 ms P-R-T Axes : 41 -19 46 degrees QTcB Int : 467 ms Normal sinus rhythm Normal ECG When compared with ECG of 10-Apr-2023 15:23, Vent. rate has decreased by [address] no longer depressed in Anterior leads Referred By: Generic ED Physician Electronically Signed By: Raul Schaffer
[2024-10-24 08:55] VITALS: BP 145/61; PULSE 72; RESP 18; TEMP 36.8; O2SAT 100; BMI 29.2
--- NOTE | 2024-10-24 09:17 | ED_ITS ---
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 (all interactions with this patient were facilitated with an [facility] temporary office assistant) Mode of arrival: wheelchair Limitations: language barrier (all interactions with this patient were facilitated with an [facility] temporary office assistant) History of Present Illness ED Provider: Bernice Moctezuma PA-C HPI narrative: Patient is a 63 year old assigned male at with a history of hypertension, hyperlipidemia, diabetes, chronic kidney disease, prior smoker, CAD with ACS 04/2023 with ARI to OM2, and three-vessel coronary artery bypass grafting on 08/13/2024, presenting to the emergency department today with chest pain. Patient states that he was at cardiac rehab when he developed right sided chest pain while at rest and became sweaty. Patient states that his pain is down to a 2/10 and he feels better. Patient denies any dizziness, lightheadedness, abdominal pain, nausea, vomiting, fever, chills, blurry vision, double vision, loss of vision, difficulty breathing, shortness of breath, back pain, night sweats, pain with urination, increased urinary frequency, increased urinary urgency, blood in his urine or stool, syncope or a near syncopal episode, recent trauma or falls, bowel incontinence, bladder incontinence, or any other complaints at this time. MD complaint: chest pain Related Data Home Medications ?Medication ?Instructions ?Recorded ?Confirmed aspirin 81 mg tablet,delayed 81 mg PO DAILY 06/27/22 09/26/24 release (Pliar Low Dose Aspirin) blood sugar diagnostic (SellbriteTouch #10 ea 06/27/22 09/26/24 Ultra Test strips) folic acid 1 mg tablet 1 mg PO DAILY 06/27/22 09/26/24 insulin glargine 100 unit/mL (3 unit subcut 09/20/22 09/26/24 mL) subcutaneous pen (Lantus Solostar U-100 Insulin) ascorbic acid (vitamin C) 500 mg 500 mg PO DAILY 01/22/24 09/26/24 tablet (Vitamin C) gabapentin 100 mg capsule 300 mg PO BID 01/22/24 09/26/24 semaglutide 0.25 mg or 0.5 mg (2 0.5 mg subcut QWEEK 09/26/24 09/26/24 mg/3 mL) subcutaneous pen injector (Ozempic) tramadol 50 mg tablet 50 mg PO DAILY 09/26/24 09/26/24 Previous Rx's ?Medication ?Instructions ?Recorded tramadol 50 mg tablet 50 mg PO Q8H PRN pain #20 tabs 06/13/22 dapagliflozin propanediol 10 mg 10 mg PO DAILY 30 days #30 tabs 06/27/22 tablet (Farxiga) ezetimibe 10 mg tablet (Zetia) 10 mg PO DAILY #30 tabs 08/09/23 atorvastatin 80 mg tablet 80 mg PO DAILY 90 days #90 tabs 01/29/24 isosorbide mononitrate 60 mg 60 mg PO DAILY #30 tabs 06/26/24 tablet,extended release 24 hr sacubitril 24 mg-valsartan 26 mg 1 tab PO BID #60 tabs 08/06/24 tablet (Entresto) carvedilol 3.125 mg tablet 3.125 mg PO BID #60 tabs 09/12/24 spironolactone 25 mg tablet 25 mg PO DAILY #30 tabs 09/12/24 Allergies Allergy/AdvReac Type Severity Reaction Status Date / Time No Known Allergies Allergy Verified 10/24/24 08:59 Review of Systems 2 Constitutional: Constitutional: Reports no additional constitutional complaints, Denies chills, Denies fever(s) and Denies night sweats Eyes: Eyes: Reports no additional eye complaints, Denies blurry vision, Denies change in vision, Denies diplopia, Denies eye discharge, Denies loss of vision and Denies eye pain ENT: Denies dizziness Cardiovascular: Cardiovascular: Reports no additional cardiovascular complaints, Reports chest pain, Denies lightheadedness, Denies Loss of Consciousness and Denies dyspnea Respiratory: Respiratory: Reports no additional respiratory complaints and Denies dyspnea Gastrointestinal: Gastrointestinal: Reports no additional gastrointestinal complaints, Denies abdominal pain, Denies melena, Denies hematochezia, Denies change in bowel habits and Denies change in stool character Genitourinary: Genitourinary: Reports no additional male genitourinary complaints, Denies hematuria, Denies oliguria, Denies difficulty urinating, Denies dysuria, Denies urinary frequency, Denies urinary hesitancy, Denies urinary incontinence and Denies urinary urgency Musculoskeletal: Musculoskeletal: Reports no additional musculoskeletal complaints, Denies numbness and Denies tingling Neurologic: Denies dizziness, Denies loss of vision, Denies numbness and Denies tingling Psychiatric: Psychiatric: Reports no additional psychiatric complaints Endocrine: Endocrine: Reports no additional endocrine complaints Hematologic/Lymphatic: Hematologic/Lymphatic: Reports no additional hematologic/lymphatic complaints Allergic/Immunologic: Allergic/Immunologic: Reports no additional allergic/immunologic complaints PMFSH Past Medical History Attestation statement: The following information was validated with the patient. Source: old records reviewed and nursing notes reviewed Medical History ACS (acute coronary syndrome) Diabetic retinopathy Diabetes Hypertension CKD (chronic kidney disease) Exertional chest pain Smoker Surgical History Hx of CABG Stented coronary artery Hx of cardiac catheterization Family History Family History Mother No problems noted. Father No problems noted. Social History Social History Smoked in Last 30 Days: No e-Cigarette/Vaping Use: Never Used Use of substances other than those prescribed or required for medical reasons: No Advance Directives: No Advance Directives Information Provided: Yes Current occupational status: unemployed Cognitive needs: No Hearing needs: No Vision needs: Yes (wears glasses) Physical Exam 2 Vital Signs: Vital Signs: Last Vital Signs Temp 98.2 F 10/24/24 11:38 Pulse 70 10/24/24 11:38 Resp 16 10/24/24 11:38 BP 120/53 L 10/24/24 11:38 Pulse Ox 99 10/24/24 11:38 O2 Del Method Room Air 10/24/24 11:38 BMI result Body Mass Index 29.2 Const: General: cooperative, no acute distress, alert and awake Nutritional Appearance: well nourished Orientation/consciousness: patient oriented x3 HEENT: Head: Yes normal to inspection and Yes atraumatic Ears: hearing grossly normal bilaterally and external ears normal General nose exam: Normal external nose present, no nasal discharge noted and no epistaxis Face and sinus: Yes normal facial exam, No abrasion and No laceration Mouth: Normal oral and palatal mucosa present, no drooling and no muffled voice Eyes: General: appearance normal, both eyes and all related structures P eriorbital: periorbital findings normal Eyelids: Yes eyelids normal C onjunctivae: conjunctivae normal Pupils: Equal, round and reactive pupils present EOM: EOMs intact bilaterally Neck: Neck: Yes normal visual inspection, Yes full ROM and Yes no lymphadenopathy Resp: Effort & Inspection: normal respiratory effort and able to speak in complete sentences Neuro: General: patient oriented x3, moves all extremities and CN's II-XI intact bilaterally Cranial nerves: Yes Equal, round and reactive pupils present Cognition (Neuro): normal cognition Extrem: General: Yes normal to inspection, Yes full ROM and Yes capillary refill normal Psych: Appearance: grossly normal Mental Status: mental status grossly normal Affect: normal affect Attitude: cooperative Thought process: N ormal thought process present Thought content: Normal thought content present Insight: Good insight present (Psych) Medical Decision Making Medical Decision Making MDM Narrative: Patient is a 63 year old assigned male at with a history of hypertension, hyperlipidemia, diabetes, chronic kidney disease, prior smoker, CAD with ACS 04/2023 with ARI to OM2, and three-vessel coronary artery bypass grafting on 08/13/2024, presenting to the emergency department today with chest pain. Patient's physical exam was unremarkable. Patient's blood work was unremarkable. Patient's EKG was unremarkable. Patient's chest x-ray showed no acute process. Patient remained pain free while in the department. I explained my physical exam findings as well as all test results to the patient. I answered all questions asked by the patient. I stressed the importance of the patient taking his medication as directed (either prescribed or as the over the counter packaging recommends). I stressed the importance of the patient following up with his primary care provider and his global sourcing manager. I stressed the importance of the patient returning to the emergency department immediately if his symptoms were to worsen or if he were to develop any dizziness, shortness of breath, difficulty breathing, chest pain, blurry vision, loss of vision, nausea, vomiting, abdominal pain, fever, chills, back pain, or any other complaints. Patient verbalized agreement and understanding with this treatment plan and discharge. Differential Diagnosis Differential Diagnoses: The differential diagnosis associated with the presentation includes Chest pain Atypical chest pain NSTEMI STEMI Vasospasm Admission/Observation Consideration of admission/observation: Escalation of care including admission/observation considered Patient would have been admitted to the hospital had his work up had any findings where hospital admission was appropriate and his clinical presentation warranted hospital admission. Lab Data [facility] Lab Attestation statement: I reviewed the patient's lab results. My interpretation of these results are in the [facility] Rationale portion of this note. 10/24/24 09:27 10/24/24 09:27 Labs: Lab Results 10/24/24 10/24/24 Range/Units 09:27 11:26 WBC 7.6 (4.8-10.8) X10*3/uL RBC 3.80 L (4.60-5.80) X10*6/uL Hgb 11.2 L (14.0-18.0) g/dl Hct 34.8 L (42.0-52.0) % MCV 91.6 (80.0-98.0) fL MCH 29.5 (27.0-33.0) pg MCHC 32.2 (31.0-36.0) g/dl RDW 14.4 (11.0-16.0) % Plt Count 323 D (160-400) X10*3/uL MPV 9.6 (9.4-12.4) fL Immature Gran % (Auto) 0.3 (0.0-0.4) % Neut % (Auto) 61.6 (45-73) % Lymph % (Auto) 24.8 (20-40) % Ness % (Auto) 8.8 (2-11) % Eos % (Auto) 3.6 (0-4) % Baso % (Auto) 0.9 (0-2) % Lymph # (Auto) 1.9 (1.2-4.9) X10*3/uL Ness # (Auto) 0.7 (0.1-1.2) X10*3/uL Eos # (Auto) 0.3 (0.0-0.4) X10*3/uL Baso # (Auto) 0.1 (0.0-0.2) X10*3/uL Abs Immat Gran (auto) 0.02 (0.00-0.03) X10*3/uL Absolute Neuts (auto) 4.7 (2.0-8.3) x10*3/uL Absolute Nucleated RBC 0.000 (0.0-0.012) X10*3/uL Nucleated RBC % (auto) 0.0 (0.0-0.2) /100WBC Sodium 141 (135-145) mmol/L Potassium 4.7 (3.3-5.1) mmol/L Chloride 107 (96-108) mmol/L Carbon Dioxide 26 (22-29) mmol/L Anion Gap 13 (12-20) BUN 35 H (9-16) mg/dL Creatinine 2.79 H (0.5-1.4) mg/dL Estim Creat Clear Calc 26.3 Estimated GFR 23 Random Glucose 117 H (60-115) mg/dL Calcium 9.1 (8.4-10.2) mg/dL Total Bilirubin 0.3 (0.0-1.0) mg/dL AST 28 (5-37) U/L ALT 36 (0-40) U/L Alkaline Phosphatase 77 (39-117) U/L Troponin I High Sens 11.6 D 12.0 (<3.5-35.0) ng/L Total Protein 7.6 (6.5-8.0) g/dL Albumin 4.3 (3.5-5.0) g/dL Independent Interpretation I performed an independent interpretation of an: EKG and Plain X-Ray Interpretation: My interpretation is in agreement with the radiologist's impression of this imaging study. L EXAMINATION: XR CHEST 1 VIEW HISTORY: cp COMPARISON: Comparison is made with the prior examination dated 04/10/2023. FINDINGS: A single AP portable view of the chest performed at 9:10 AM is submitted. There are low lung volumes. The lungs are clear. There is no pleural effusion, pneumothorax, or pulmonary vascular congestion. The heart is normal in size. The patient is status post median sternotomy and CABG. There is degenerative disc disease of the spine. XR/XR chest 1V IMPRESSION: Low lung volumes. No acute cardiopulmonary abnormality. Electronically signed by: Paul Hsieh MD 10/24/2024 09:38 AM EDT Dictated By: Paul Hsieh MD Signed By: Electronically signed by Paul Hsieh MD 10/24/24 0938 I independently interpreted this EKG and am in agreement with the below findings: Vent. Rate: 73 BPM Atrial Rate: 73 BPM P-R Int: 188 ms QRS Dur: 98 ms QT Int: 424 ms P-R-T Axes: 41 -19 46 degrees QTcB Int: 467 ms Normal sinus rhythm Normal ECG When compared with ECG of 10-Apr-2023 15:23, Vent. rate has decreased by [address] no longer depressed in Anterior leads DD/ [id number] Radiology Impression Discussion of test interpretation with radiology: I have reviewed the radiologist's reading. Discharge Plan Discharge Clinical Impression: Chest pain, Atypical chest pain Patient Disposition: Home, Self-Care Instructions: Chest Pain (ED) Additional Instructions: Your work up today showed no evidence of an emergent cause for your symptoms. Your work up today was verry reassuring. You must follow up with your global sourcing manager. Follow up with your primary care provider. Return to the emergency department immediately if your symptoms worsen or if you develop any dizziness, shortness of breath, difficulty breathing, chest pain, blurry vision, loss of vision, nausea, vomiting, abdominal pain, fever, chills, back pain, or any other complaints. Crooks an?lisis de hoy no mostr? evidencia de kati causa urgente para elena s?ntomas. Crooks an?lisis de hoy fue muy tranquilizador. Debe consultar con crooks cardi?logo. Sergey?seguimiento?con crooks m?dico de atenci?n primaria. Acuda inmediatamente al servicio de urgencias si elena s?ntomas empeoran o si presenta falta de aliento, dificultad para respirar, dolor tor?cico, mareos, aturdimiento, dolor de espalda, dolor abdominal, fiebre, escalofr?os o cualquier otro s?ntoma. Please see the information below about our Patient Portal. If you are not yet enrolled in the [facility] Patient Portal, you will receive an enrollment email invitation following your visit to any [facility] care setting. You may also self-enroll in the Patient Portal by visiting our website: [email or web address] The following information is required to access the Patient Portal: - Your [facility] Medical Record Number - Your personal home email address (must match what is in your electronic medical record, Registration staff can assist with this) - Name - Date of Capabilities of the Patient Portal: - Message some providers - View upcoming appointments - Access your health summary, medical history, and visit history - View current conditions and allergies - View procedure and lab results - View your medications, including guidelines, side effects, and precautions - Complete pre-appointment questionnaires requested by your provider - Ready summary reports of your office visits and procedures To access the Patient Portal Mobile Germain, follow these directions: - Search [employer] in the Germain Store or [employer] Store - Download the Germain - Search for [facility] - Enter your login/password Portal del paciente Si usted no esta inscrito en el portal de pacientes de [facility], recibira kati invitacion de inscripcion despues de crooks visita al [facility] o al [facility] via correo electronico. Tambien puede inscribirse voluntariamente en el portal de pacientes visitando nuestra pagina web: [email or web address] La siguiente informacion sera requerida para acceder al portal: - Crooks elizabeth de historia medica de [facility] - Crooks direccion de correo electronico personal - Nombre - Fecha de nacimiento Capacidades: Las siguientes capacidades estan disponibles en el portal de pacientes: - Enviar mensajes a algunos doctores - Verificar proximas citas - Acceso a crooks historial de maryanne, registro medico e historial de visitas - Raoul las condiciones actuales y alergias raoul procedimientos y resultados del laboratorio - Raoul elena medicamentos, incluyendo las pautas - Efectos secundarios y precauciones - Completar o llenar formularios / cuestionarios de - Citas solicitadas por crooks doctor - Leer los resumenes de reportes medicos de elena visitas y procedimientos Issa acceder a la aplicacion movil: - [employer] en la [employer] Store o [employer] Store - Descargue la aplicacion - [facility] - Ingrese crooks nombre de usuario / Contrasena Prescriptions: No Action ezetimibe [Zetia] 10 mg tablet 10 mg PO DAILY Qty: 30 5RF atorvastatin 80 mg tablet 80 mg PO DAILY 90 Days Qty: 90 3RF Entresto 24-26 mg tablet 1 tab PO BID Qty: 60 5RF carvedilol 3.125 mg tablet 3.125 mg PO BID Qty: 60 0RF Rx Instructions: must administer with a meal/food spironolactone 25 mg tablet 25 mg PO DAILY Qty: 30 0RF tramadol 50 mg tablet 50 mg PO Q8H PRN (Reason: pain) Qty: 20 0RF folic acid 1 mg tablet 1 mg PO DAILY aspirin [Pilar Low Dose Aspirin] 81 mg tablet,delayed release (DR/EC) 81 mg PO DAILY (DME) OneTouch Ultra Test Strip See Rx Instructions .ROUTE BID Qty: 10 Rx Instructions: As directed Farxiga 10 mg tablet 10 mg PO DAILY 30 Days Qty: 30 3RF insulin glargine [Lantus Solostar U-100 Insulin] 100 unit/mL (3 mL) insulin pen subcut gabapentin 100 mg capsule 300 mg PO BID ascorbic acid (vitamin C) [Vitamin C] 500 mg tablet 500 mg PO DAILY isosorbide mononitrate 60 mg tablet extended release 24 hr 60 mg PO DAILY Qty: 30 5RF Rx Instructions: dose increased - adjust pill pack tramadol 50 mg tablet 50 mg PO DAILY Ozempic 0.25 mg or 0.5 mg (2 mg/3 mL) pen injector 0.5 mg subcut QWEEK Referrals: Name,MD Joey [Primary Care Provider] - Print Language: Italian
--- OUTSIDE RECORDS SUMMARY | 2024-10-24 09:20 | XMS_ITS | Clinical Summary ---
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 Name Role Phone Name, Joey MERINO Primary Care Provider [phone] Allergies No known active allergies Medications carvedilol [...] Office Visit [facility] [address] [address] Patricia Fulton ARNP Stage 3b chronic kidney disease (HCC) (Primary Dx); Hypertension; Hyperkalemia 08/04/2024 Orders Only [facility] [address] [place] [address] Kevin Gates MD Chronic kidney disease, stage 4 (severe) (HCC); Renal osteodystrophy from Last 3 Months Immunizations Immunization Administration [...] Care Team (Late st Contact Info) Description 11/02/2024 Orders Only [facility] [address] [place] [phone] Patricia Fulton ARNP [address] [address] Stage 3b chronic kidney disease (HCC); Hypertension; Hyperkalemia 12/15/2024 1:00 PM EDT Office Visit [facility] [address] [address] Kevin Gates MD [address] [address] 01/12/2025 1:15 PM EDT Office Visit [facility] [address] [address] Kevin Gates MD [address] [address] Health Maintenance Due Date Last [...] disease, stage 4 (severe) (HCC) Hypertension Hyperkalemia from Last 3 Months Results * (ABNORMAL) Basic metabolic panel (08/11/2024 10:20 AM EDT) Glucose 72 70 - 99 mg/dL [facility] BUN 25 8 - 27 mg/dL [facility] Creatinine 2.16(H) 0.76 - 1.27 mg/dL [facility] eGFR CKD-EPI CR 2020 34(L) >59 mL/min/1.7 3 [facility] BUN/Creatinine Ratio 12 10 - 24 [facility] Sodium 141 134 - 144 mmol/L [facility] Potassium 4.8 3.5 - 5.2 mmol/L [facility] Chloride 102 96 - 106 mmol/L [facility] Bicarbonate (CO2) 21 20 - 29 mmol/L [facility] Calcium 8.9 8.6 - 10.2 mg/dL [facility] Blood specimen (specimen) Venous blood / Unknown 08/11/2024 10:20 AM EDT 08/11/2024 Patricia CORREIA LAB BLOOD ORDERABLES Final Result [facility] [address] [place] [address] from Last 3 Months Insurance [address] [place] [address] [facility] [employer] Dual SNP ([id number]) [place] [id number] [facility] One [employer] Dual SNP ([id number]) [place] [id number] Care Teams Other Wood Processing Machine Operator Relationship Specialty Start Date End Date Name, MD Joey [address] [place] [id number] PCP - General Internal Medicine 07/16/24
[2024-10-24 09:34] LABS: MANUAL DIFF FLAG NO
[2024-10-24 09:36] LABS: Basophils Absolute Auto 0.1 X10*3/uL (0.0-0.2); Basophils Percent Auto 0.9 % (0-2); Eosinophils Absolute Auto 0.3 X10*3/uL (0.0-0.4); Eosinophils Percent Auto 3.6 % (0-4); Hematocrit 34.8 % (42.0-52.0); Hemoglobin 11.2 g/dl (14.0-18.0); Imm Gran Abs Auto 0.02 X10*3/uL (0.00-0.03); Imm Gran Pct Auto 0.3 % (0.0-0.4); Lymphocytes Absolute Auto 1.9 X10*3/uL (1.2-4.9); Lymphocytes Percent Auto 24.8 % (20-40); Mean Corpuscular HGB Conc 32.2 g/dl (31.0-36.0); Mean Corpuscular Hemoglobin 29.5 pg (27.0-33.0); Mean Corpuscular Volume 91.6 fL (80.0-98.0); Mean Platelet Volume 9.6 fL (9.4-12.4); Monocytes Absolute Auto 0.7 X10*3/uL (0.1-1.2); Monocytes Percent Auto 8.8 % (2-11); Neutrophils Absolute Auto 4.7 x10*3/uL (2.0-8.3); Neutrophils Percent Auto 61.6 % (45-73); Platelet Count 323 X10*3/uL (160-400); Red Cell Distribution Width 14.4 % (11.0-16.0); White Blood Count 7.6 X10*3/uL (4.8-10.8)
[2024-10-24 09:51] LABS: Alanine Aminotransferase 36 U/L (0-40); Albumin Level 4.3 g/dL (3.5-5.0); Alkaline Phosphatase 77 U/L (39-117); Anion Gap 13 (12-20); Aspartate Amino Transferase 28 U/L (5-37); Bilirubin Total 0.3 mg/dL (0.0-1.0); Blood Urea Nitrogen 35 mg/dL (9-16); Calcium 9.1 mg/dL (8.4-10.2); Carbon Dioxide 26 mmol/L (22-29); Chloride 107 mmol/L (96-108); Creatinine Clr Calc Pharmacy 26.3; Estimated Glomerular Filt Rate 23; Glucose Random 117 mg/dL (60-115); Potassium 4.7 mmol/L (3.3-5.1); Sodium 141 mmol/L (135-145); Total Protein 7.6 g/dL (6.5-8.0)
[2024-10-24 10:00] LABS: Troponin-I High Sensitivity 11.6 ng/L (<3.5-35.0)
[2024-10-24 10:47] VITALS: BP 149/74; PULSE 71; RESP 13; O2SAT 100
[2024-10-24 11:38] VITALS: BP 120/53; PULSE 70; RESP 16; TEMP 36.8; O2SAT 99
[2024-10-24 13:12] VITALS: BP 120/53; PULSE 70; RESP 16; TEMP 36.8; O2SAT 99
== END 2024-10-24 13:13 | disposition home or self-care (01) ==
PROVIDERS: Physician Assistant Medical; Emergency Provider Emergency Medicine; PCP Internal Medicine Geriatric Medicine
DX: R07.89 Other chest pain (principal); I25.10 Atherosclerotic heart disease of native coronary artery without angina pectoris; Z79.899 Other long term (current) drug therapy
CPT/HCPCS: 36415; 71045; 80053; 84484; 85025; 93005; 99283; 99285

== ENCOUNTER → 2024-10-24 08:53 | Outpatient (BNV) | payer OTHER, SELFPAY | PROVIDERS: Emergency Provider Emergency Medicine; PCP Internal Medicine Geriatric Medicine; Visit Provider Internal Medicine Cardiovascular Disease | DX: R42 Dizziness and giddiness (principal) | CPT/HCPCS: 93010 ==

== ENCOUNTER → 2024-10-24 08:54 | Outpatient (BNV) | payer OTHER, SELFPAY | PROVIDERS: PCP Internal Medicine Geriatric Medicine; Visit Provider Radiology Diagnostic Radiology | DX: J98.4 Other disorders of lung (principal) | CPT/HCPCS: 71045 ==

== ENCOUNTER → 2024-10-29 12:35 | Outpatient (REF) | payer OTHER, SELFPAY ==
--- NOTE | 2024-10-29 12:38 | CA_ITS ---
Transthoracic Echocardiogram Patient (Last, First, Middle): Efrain Dewitt, Gender: Male Date of : 1960 Age: 63 Procedure Date: 10/29/2024 Procedure Type: Transthoracic Echocardiogram Location: OP Height: 165.1 cm Weight: 79.38 kg BSA: 1.87 m2 Heart Rate: 74 bpm BP: 102 / 58 mmHg Rock Star: DENNY Referring MD: Marci Nova NP-[employer] Position Clerk: Tl Jones MD Symptoms: Z95.1 - Presence of aortocoronary bypass graft Study Quality: Adequate ECG Rhythm: Sinus Conclusions: - 1. Normal LV ejection fraction of 65-70% with underlying regional wall motion abnormality consistent with coronary artery disease 2. Cardiac valvular Dopplers within normal limits 3. No gross pericardial effusion Findings Left Ventricle Normal left ventricular size, thickness, and systolic function. The visually estimated ejection fraction is between 65-70%. There is paradoxical septal motion consistent with post-operative status. Spectral Doppler is indicative of a normal filling pattern. Wall Motion Rest Echo Findings The inferolateral wall is hypokinetic. The basal inferior and basal inferoseptal segments are akinetic. All other scored wall segments showed normal motion. Right Ventricle Normal right ventricular cavity size and systolic function. Atria Both atria are normal in size. There is no evidence of interatrial shunt. Aortic Valve Normal aortic valve structure and function. There is no aortic valve stenosis. There is no aortic valve regurgitation. Mitral Valve Normal mitral valve structure and function. There is trace mitral valve regurgitation. There is no mitral valve stenosis. Pulmonic Valve The pulmonic valve is likely normal. Tricuspid Valve Normal tricuspid valve structure. Tricuspid regurgitation envelope is inadequate for calculation of right ventricular systolic pressure. Normal right atrial pressure. There is no evidence of pulmonary hypertension. Great Vessels All visible segments of the aorta are normal in size. The pulmonary artery was not well visualized. Venous The inferior vena cava is normal in size and collapses greater than 50% with inspiration. Pericardium/Pleural There is no evidence of pericardial effusion. Prior Study Comparison Changes noted compared to prior study dated: 02/22/2024. LV systolic function seems to have significantly improved Measurements 2D Linear Measurements IVSd: 1.14 0.6-0.9/0.6-1.0 cm LVIDd: 5.04 3.9-5.3/4.2-5.9 cm LVIDd Index: 2.70 2.4-3.2/2.2-3.1 cm/m2 LVIDs: 3.91 2.0-3.6 cm LVPWd: 1.01 0.7-1.1 cm LA Diam: 3.80 2.7-3.8/3.0-4.0 cm LAIDs Index: 2.03 1.5-2.3 cm/m2 LV Mass: 288.29 67-162/88-224 g LV Mass Index: 154.16 43-95/49-115 g/m2 LVOT Diam: 2.00 3.0+(-)1.3 cm 2D Systolic Function EF 4C: 70.00 >55% EF 2C: 62.80 >55% EF BiP: 66.70 >55% Mitral Valve MV Pk E: 0.79 MV PK A: 0.60 MV Decel Time: 206.00 E/A: 1.30 E'Lateral: 7.94 E'Medial: 5.33 E/E' Med: 14.80 E/E' Lat: 9.90 PHT: 60.00 MVA PHT: 3.67 Decel Evans: 3.82 Aortic Valve AoV Pk Marcos: 1.22 AoV Pk Grad: 6.00 STEPHANIE: 2.43 LVOT LVOT Pk Marcos: 0.91 LVOT Mn Marcos: 0.68 LVOT VTI: 0.21 LVOT Pk Grad: 3.00 LVOT Mn Grad: 2.00 LVOT Diam: 2.00 LVOT Area: 3.14 Diastolic Function MV Pk E: 0.79 MV Pk A: 0.60 E/A: 1.30 E'Medial: 5.33 E/E' Med: 14.80 E' Laterial: 7.94 E/E' Lat: 9.90 Right Ventricle TVS' Marcos: 8.27 Tricuspid Valve RA Press: 3.00 Great Vessels Aorta Sinus of Valsalva: 3.00 2.0-3.5 cm Ao Asc: 3.40 2.1-3.4 cm Pulmonary Valve PV Pk Marcos: 1.14 Peak PV Grad: 5.00 Updated in Other Vendor System with Status of Final Tl Jones MD electronically signed on 10/30/2024 12:23:53 PM with status of Final
--- OUTSIDE RECORDS SUMMARY | 2024-10-29 13:16 | XMS_ITS | Encounter Summary ---
Author Organization [employer] Address [address] [place] [address] Care Team Providers Care Supervisor [place] Name Role Phone Emperatriz Stoll Primary Care Provider + Rosa Deluca PharmD Unavailable [phone] Name, Joey MERINO Primary Care Provider [phone] Encounter Details Date Type Department Care Team (Late st Contact Info) Description 04/06/2023 Orders Only [facility] MED & PEDS [address] [place] [address] Emperatriz Stoll FNP [address] [place] [address] Social History Tobacco Use Types Packs/Day Years [...] Care Team (Late st Contact Info) Description 11/07/2024 9:30 AM EDT Medication Management [facility] MEDICINE [address] [place] [phone] Rosa Deluca, PharmD [address] [place] [address] 11/21/2024 9:00 AM EDT Office Visit [facility] MEDICINE [address] [place] [phone] Name, MD Joey [address] [place] [id number] documented as of this encounter Goals Goal Patient Goal Type Associated Problems Recent Progress Patient-Stated? Author Blood Pressure < 140/90 Blood Pressure 128/76(2024 11:08 AM EDT) No Donald Johnson Hemoglobin A1c < 7.5 Result Component 6(07/14/2024 9:46 AM EST) No Donald Johnson documented as of this encounter Visit Diagnoses Not on filedocumented in this encounter Additional Health Concerns Assessment Noted Time PHQ-9 Depression Total Score: 0 12/14/19 23 11:09 AM EDT documented as of this encounter Care Teams Supervisor [place] Relationship Specialty Start Date End Date Emperatriz Stoll FNP [address] [place] [phone] PCP - General Family Medicine 07/19/22 02/05/24 Name, MD Joey [address] [place] [address] PCP - General Internal Medicine 02/06/24 Rosa Deluca, Martha [address] [place] [address] Pharmacist Internal Medicine 12/03/23 documented as of this encounter
== END ==
LOC: HO.CARD 12:35
PROVIDERS: PCP Internal Medicine Geriatric Medicine; Visit Provider Nurse Practitioner Family
DX: Z95.1 Presence of aortocoronary bypass graft (principal)
CPT/HCPCS: 93306

== ENCOUNTER → 2024-10-29 12:38 | Outpatient (BNV) | payer OTHER, SELFPAY | PROVIDERS: PCP Internal Medicine Geriatric Medicine; Visit Provider Internal Medicine Cardiovascular Disease | DX: I25.10 Atherosclerotic heart disease of native coronary artery without angina pectoris (principal); Z95.1 Presence of aortocoronary bypass graft | CPT/HCPCS: 93306 ==

== ENCOUNTER 2024-12-11 09:59 | Outpatient (AMB) | payer OTHER, SELFPAY ==
--- NOTE | 2024-12-11 10:16 | MHC.OFFVIS ---
Vital Signs 12/11/24 10:20 Height 5 ft 5 in Weight 171 lb 15.369 oz BMI 28.6 BP 90/62 Blood Pressure Location Rt brachial Position Sitting Pulse 70 Pulse Source Monitor Intake Visit Reasons: 3 mth f/up Intake Note: 3 mth f/up Account Specialist Required: Yes Account Specialist Language: Glove Cutter Name: [id number] Accompanied by: Self / Same As Patient Allergies No Known Allergies Allergy (Verified 10/24/24 08:59) Medication List - Last Reconciled 12/11/24 by Tl Jones MD amiodarone 200 mg PO ascorbic acid (vitamin C) (Vitamin C) 500 mg PO DAILY aspirin (Pilar Low Dose Aspirin) 81 mg PO DAILY atorvastatin 80 mg PO DAILY 90 days blood sugar diagnostic (THREAT STREAM Ultra Test strips) As directed carvedilol 3.125 mg PO BID clopidogrel 75 mg PO DAILY dapagliflozin propanediol (Farxiga) 10 mg PO DAILY 30 days ezetimibe (Zetia) 10 mg PO DAILY ferrous sulfate 325 mg PO DAILY finerenone (Kerendia) 10 mg PO DAILY folic acid 1 mg PO DAILY furosemide 20 mg PO QAM gabapentin 300 mg PO BID insulin glargine (Lantus Solostar U-100 Insulin) units subcut semaglutide (Ozempic) 0.5 mg subcut QWEEK spironolactone 25 mg PO DAILY tamsulosin 0.4 mg PO BEDTIME tramadol 50 mg PO DAILY HPI Comments Details: Efrain comes for follow-up. History was obtained with help of audio visual director. Despite the audio visual director he is not very well aware of his medications. The lot of changes medications. Currently on amiodarone therapy, unclear as to why. He is off Entresto therapy which appears to be probably related to his renal insufficiency. He said overall he feeling very well. He has not had any symptoms of angina or shortness of breath. Remains very functional. He does complain of orthostatic lightheadedness. No syncopal episodes. No prolonged palpitation irregular heartbeat. Most recent echocardiogram shows improved LV ejection fraction. PFSH Medical History ACS (acute coronary syndrome) Diabetic retinopathy Diabetes Hypertension CKD (chronic kidney disease) Exertional chest pain Smoker Surgical History Hx of CABG Stented coronary artery Hx of cardiac catheterization Family History Mother No problems noted. Father No problems noted. Social History e-Cigarette/Vaping Use: Never Used Current occupational status: unemployed Cognitive needs: No Hearing needs: No Vision needs: Yes (wears glasses) Review of Systems Const Denies chills, Denies fatigue, Denies fever(s), Denies frequent falls, Denies weakness, Denies weight gain and Denies weight loss ENT Denies dizziness Card Denies chest pain, Denies leg edema, Denies lightheadedness, Denies palpitations, Denies dyspnea and Denies dyspnea on exertion Resp Denies cough, Denies dyspnea and Denies dyspnea on exertion GI Denies hematochezia Musc Denies abnormal gait, Denies muscle weakness, Denies numbness, Denies radiating pain into limb and Denies tingling Neuro Denies abnormal gait, Denies dizziness, Denies frequent falls, Denies numbness, Denies tingling and Denies weakness Endo Denies fatigue and Denies palpitations Physical Exam Vital Signs: Last Vital Signs Pulse 70 12/11/24 10:20 BP 90/62 12/11/24 10:20 BMI result Body Mass Index 28.6 Const General: cooperative, healthy appearing, comfortable and no acute distress Orientation/consciousness: patient oriented x3 Neck Neck: Yes normal visual inspection and Yes no JVD Chest Other: sternal incision well approximated, No redness, swelling or drainage noted, drain sites healing well, one small scab in place Resp Effort & Inspection: normal respiratory effort Auscultation: clear to auscultation bilaterally, no crackles, no rales, no rhonchi and no wheezes Cardio Jugular venous distension: no JVD Rate: regular rate Rhythm: regular rhythm Heart sounds: S1 normal heart sound present, S2 normal heart sound present, no murmurs and no rubs Neuro General: patient oriented x3 Extrem General: Yes normal to inspection and No no pedal edema Psych Appearance: grossly normal Mental Status: mental status grossly normal Speech and movement: Normal speech and movement present Office Procedures EKG Details: EKG shows normal sinus rhythm with normal EKG 55041-[id number], Complete Assessment & Plan Assessment & Plan (1) CAD (coronary artery disease): Code(s): I25.10 - Atherosclerotic heart disease of [place] coronary artery without angina pectoris Category: Medical Plan: CAD status post three-vessel coronary artery bypass grafting for progressive anginal symptoms and severe three-vessel disease with ischemic cardiomyopathy. Since then he has LV function has improved to normal range. Good prognosis with this was discussed with him with help of audio visual director currently off Entresto therapy which appears to be probably related to why the low blood pressure and/or renal dysfunction. Unclear as to why he is on amiodarone therapy. Have taken the liberty to stop amiodarone therapy as there was no clear evidence of any arrhythmias. He is also does not appear to have any signs of heart failure and with orthostatic lightheadedness low blood pressure will stop his Lasix and spironolactone therapy. Advise blood work in 2 weeks' time along with lipid panel. Continue participate in physical activity as tolerated. Will refer him to our Nephrology colleagues for renal insufficiency. Will follow up in the clinic in 4 weeks time, sooner p.r.n.. Thank you for allowing me to partake in his care Orders: Orders Lipid Panel Today I25.10 - Atherosclerotic heart disease of [place] coronary artery without angina pectoris Basic Metabolic Panel Today I25.10 - Atherosclerotic heart disease of [place] coronary artery without angina pectoris Complete Blood Count no Diff Today I25.10 - Atherosclerotic heart disease of [place] coronary artery without angina pectoris Referrals Nephrology Referral N18.9 - Chronic kidney disease, unspecified Medications: Discontinued spironolactone Discontinued Reason: Doctor's Order 25 mg PO DAILY 90 tabs 3RF Coding Level of Care Code Est Pt Level 4 (87934) Complex EM visit Add On G2211 Diagnoses CAD (coronary artery disease) I25.10 CPT Codes EKG - CPT: 41865-[id number], Complete ([id number])
[2024-12-11 10:20] VITALS: BP 90/62; PULSE 70; BMI 28.6
--- OUTSIDE RECORDS SUMMARY | 2024-12-11 10:35 | XMS_ITS | Encounter Summary ---
Author Organization [facility] Address [address] [place] [address] Phone Care Team Providers Care Rn Maternity Name Role Phone Name, Joey MERINO Primary Care Provider [phone] Encounter Details Date Type Department Care Team (Late st Contact Info) Description 08/09/2022 Telephone [facility] [address] [place] [address] Patricia Deras Social History Tobacco [...] Visit [facility] [address] [facility] [address] [place] [phone] Kevin Gates MD [address] [facility] [address] [place] [address] 12/28/2024 Orders Only [facility] [address] [facility] [address] [place] [address] Patricia Fulton ARNP [address] [address] Chronic kidney disease, stage 4 (severe) (HCC); Hypertension; Renal osteodystrophy; Hyperkalemia documented as of this encounter Visit Diagnoses Not on filedocumented in this encounter Care Teams Rn Maternity Relationship Specialty Start Date End Date Name, MD Joey [address] [place] [address] PCP - General Internal Medicine 07/16/24 documented as of this encounter
--- OUTSIDE RECORDS SUMMARY | 2024-12-11 10:35 | XMS_ITS | Encounter Summary ---
Author Organization [employer] Address [address] [place] [address] Care Team Providers Care Supervisor Cemetery Workers Name Role Phone Rosa Deluca PharmD Unavailable [phone] Name, Joey MERINO Primary Care Provider [phone] Reason for Visit * Reason Onset Date Comments Error (VOID this visit) 12/08/2024 Encounter Details Date Type Department Care Team ([facility] Contact Info) Description 12/08/2024 Telephone [facility] MEDICINE [address] [place] [address] Remedios Calderon, RN Error (VOID this visit) Social History Tobacco Use Types Packs/Day Years [...] Care Team (Late st Contact Info) Description 12/17/2024 9:00 AM EDT Clinical Support [address] [address] Remedios Calderon RN 01/13/2025 9:00 AM EDT Medication Management [address] [address] Rosa Deluca, PharmD [address] [place] [phone] 03/03/2025 9:15 AM EDT Office Visit [address] [address] Name, MD Joey [address] [place] [phone] documented as of this encounter Goals Goal Patient Goal Type Associated Problems Recent Progress Patient-Stated? Author Blood Pressure < 140/90 Blood Pressure 132/62(2024 9:11 AM EDT) No Donald Johnson Hemoglobin A1c < 7.5 Result Component 6.3( 10:21 AM EDT) No Donald Johnsno documented as of this encounter Visit Diagnoses Not on filedocumented in this encounter Additional Health Concerns Assessment Noted Time PHQ-9 Depression Total Score: 8 06/06/19 25 11:44 AM EST documented as of this encounter Care Teams Supervisor Cemetery Workers Relationship Specialty Start Date End Date Name, MD Joey [address] [place] [address] PCP - General Internal Medicine 02/06/24 Rosa Deluca, Martha [address] [place] [address] Pharmacist Internal Medicine 12/03/23 documented as of this encounter
== END 2024-12-11 10:52 | disposition home or self-care (01) ==
LOC: HO.HCS 09:59
PROVIDERS: PCP Nurse Practitioner Family; Visit Provider Internal Medicine Cardiovascular Disease
DX: I25.10 Atherosclerotic heart disease of native coronary artery without angina pectoris (principal)
CPT/HCPCS: 93010; 99214; G2211

== ENCOUNTER → 2024-12-11 09:59 | Outpatient (BNVA) | payer OTHER, SELFPAY | PROVIDERS: PCP Nurse Practitioner Family; Visit Provider Internal Medicine Cardiovascular Disease | DX: I25.10 Atherosclerotic heart disease of native coronary artery without angina pectoris (principal); N18.9 Chronic kidney disease, unspecified | CPT/HCPCS: 93005; 99212 ==

== ENCOUNTER 2025-01-06 08:45 | Outpatient (REF) | payer OTHER, SELFPAY ==
[2025-01-06 09:01] LABS: MANUAL DIFF FLAG NO
--- OUTSIDE RECORDS SUMMARY | 2025-01-06 09:03 | XMS_ITS | Encounter Summary ---
Author Organization [facility] Address [address] [place] [phone] Phone Care Team Providers Care Outsole Cementer Name Role Phone Name, Joey MERINO Primary Care Provider Unavailabl e Encounter Details Date Type Department Care Team (Late Contact Info) Description 12/28/2024 Orders Only [facility] [address] [place] [phone] Patricia Fulton ARNP [address] [address] Chronic kidney disease, stage 4 (severe) (HCC); Hypertension; Renal osteodystrophy; Hyperkalemia Social History Tobacco [...] Care Team (Late st Contact Info) Description 03/24/2025 1:30 PM EDT Office Visit [facility] [address] [address] Kevin Gates MD [address] [address] documented as of this encounter Visit Diagnoses Diagnosis Chronic kidney disease, stage 4 (severe) (HCC) Hypertension Renal osteodystrophy Hyperkalemia documented in this encounter Care Teams Outsole Cementer Relationship Specialty Start Date End Date Name, MD Joey PCP - General Internal Medicine 07/16/24 documented as of this encounter
--- OUTSIDE RECORDS SUMMARY | 2025-01-06 09:03 | XMS_ITS | Encounter Summary ---
Author Organization [employer] Address [address] [place] [address] Care Team Providers Care Coal Hauler Operator Name Role Phone Rosa Deluca PharmD Unavailable [phone] Name, Joey MERINO Primary Care Provider [phone] Reason for Visit * Reason Comments Med Refill Encounter Details Date Type Department Care Team ([facility] st Contact Info) Description 12/09/2024 Refill [facility] MED & PEDS [address] [place], [place] [phone] Name, MD Joey [address] [place] [address] Social History Tobacco Use Types Packs/Day Years [...] Care Team (Late st Contact Info) Description 01/13/2025 9:00 AM EDT Medication Management [address] [address] Rosa Deluca, PharmD [address] [place] [address] 03/03/2025 9:15 AM EDT Office Visit [address] [address] Name, MD Joey [address] [place] [address] 03/16/2025 10:00 AM EDT Clinical Support [address] [address] Remedios Calderon RN documented as of this encounter Goals Goal Patient Goal Type Associated Problems Recent Progress Patient-Stated? Author Blood Pressure < 140/90 Blood Pressure 132/62(2024 9:11 AM EDT) No Donald Johnson Hemoglobin A1c < 7.5 Result Component 6.3( 10:21 AM EDT) No Donald Johnson documented as of this encounter Visit Diagnoses Not on filedocumented in this encounter Additional Health Concerns Assessment Noted Time PHQ-9 Depression Total Score: 8 06/06/19 25 11:44 AM EST documented as of this encounter Care Teams Coal Hauler Operator Relationship Specialty Start Date End Date Name, MD Joey [address] [place] [address] PCP - General Internal Medicine 02/06/24 Rosa Deluca, Martha [address] [place] [address] Pharmacist Internal Medicine 12/03/23 documented as of this encounter
[2025-01-06 09:14] LABS: Hematocrit 39.1 % (42.0-52.0); Hemoglobin 12.5 g/dl (14.0-18.0); Imm Gran Abs Auto 0.01 X10*3/uL (0.00-0.03); Imm Gran Pct Auto 0.2 % (0.0-0.4); Lymphocytes Absolute Auto 1.8 X10*3/uL (1.2-4.9); Mean Corpuscular HGB Conc 32.0 g/dl (31.0-36.0); Mean Corpuscular Hemoglobin 29.0 pg (27.0-33.0); Mean Corpuscular Volume 90.7 fL (80.0-98.0); NRBC Abs Auto 0.000 X10*3/uL (0.0-0.012); NRBC Pct Auto 0.0 /100WBC (0.0-0.2); Platelet Count 281 X10*3/uL (160-400); Red Blood Count 4.31 X10*6/uL (4.60-5.80); White Blood Count 6.5 X10*3/uL (4.8-10.8)
[2025-01-06 09:46] LABS: Albumin Level 4.3 g/dL (3.5-5.0); Anion Gap 12 (12-20); Blood Urea Nitrogen 33 mg/dL (9-16); Calcium 9.0 mg/dL (8.4-10.2); Carbon Dioxide 29 mmol/L (22-29); Chloride 109 mmol/L (96-108); Estimated Glomerular Filt Rate 28; Magnesium 2.2 mg/dL (1.6-2.6); Potassium 4.6 mmol/L (3.3-5.1); Sodium 145 mmol/L (135-145)
[2025-01-06 09:48] LABS: Appearance Urine Clear; Glucose Urine UA >=1000 mg/dL (Negative); PH 6.0 (5.0-9.0); Specific Gravity - Urine 1.025 (1.005-1.025); UMIC TRIGGER UA YES
[2025-01-06 10:47] LABS: Microalbum/Creatinine Ratio Ur 49.1 ug/mg cr (<30); Protein/Creatinine Ratio, Ur 0.22 (<0.2); Total Protein Urine Random 22 mg/dL (<12)
[2025-01-06 10:58] LABS: Parathyroid Hormone Intact 115.3 pg/mL (8.7-77.1)
== END 2025-01-06 08:46 | disposition home or self-care (01) ==
LOC: HO.LAB 08:45
PROVIDERS: Absent Provider Internal Medicine Cardiovascular Disease; PCP Internal Medicine Geriatric Medicine; Visit Provider Internal Medicine Nephrology
DX: E11.22 Type 2 diabetes mellitus with diabetic chronic kidney disease (principal); N18.4 Chronic kidney disease, stage 4 (severe); N25.0 Renal osteodystrophy
CPT/HCPCS: 36415; 80051; 81001; 82040; 82043; 82306; 82310; 82565; 82570; 83735; 83970; 84100; 84156; 84520; 85025

== ENCOUNTER 2025-01-08 09:36 | Outpatient (AMB) | payer OTHER, SELFPAY ==
[2025-01-08 09:43] VITALS: BP 138/72; PULSE 74; BMI 29.0
--- NOTE | 2025-01-08 09:43 | A.OFFVIS_ITS ---
Vital Signs 01/08/25 09:43 Height 5 ft 5 in Weight 174 lb 2.643 oz BMI 29.0 BP 138/72 Blood Pressure Location Rt brachial Position Sitting Pulse 74 Pulse Source Pulse Oximeter Intake Visit Reasons: 4wk follow up Bread Stacker Required: Yes Bread Stacker Language: Back Up Worker Name: voice marie [id number] Allergies No Known Allergies Allergy (Verified 01/08/25 09:46) Medication List - Last Reconciled 01/08/25 by RUTHANN Hobbs ascorbic acid (vitamin C) (Vitamin C) 500 mg PO DAILY aspirin (Pilar Low Dose Aspirin) 81 mg PO DAILY atorvastatin 80 mg PO DAILY 90 days blood sugar diagnostic (Stylefinch Ultra Test strips) As directed carvedilol 3.125 mg PO BID clopidogrel 75 mg PO DAILY dapagliflozin propanediol (Farxiga) 10 mg PO DAILY 30 days ezetimibe (Zetia) 10 mg PO DAILY folic acid 1 mg PO DAILY gabapentin 300 mg PO ONCE insulin glargine (Lantus Solostar U-100 Insulin) units subcut semaglutide (Ozempic) 0.5 mg subcut QWEEK tamsulosin 0.4 mg PO BEDTIME tramadol 50 mg PO DAILY HPI HPI 4wk follow up: Details: Efrain is a 63-year-old male with past medical history of hypertension, hyperlipidemia, diabetes, chronic kidney disease, prior smoking, CAD with ACS 04/2023 with ARI to OM2 who recently had abnormal stress test and underwent cardiac catheterization showing significant three-vessel coronary artery disease. He was referred to Cardiac surgery and underwent a three-vessel coronary artery bypass grafting on 08/13/2024. In the months following surgery he was noted to have low blood pressure readings. His medications have been adjusted and blood pressure has improved. EF was low prior to surgery and has normalized. He now presents for follow-up. Today he reports that he has been feeling much better in the last few weeks on less medication. He is no longer having any lightheadedness. He denies chest discomfort at rest or with activity. He continues to attend cardiac rehab at [facility]. He denies shortness of breath, PND, orthopnea or edema. No heart palpitations, presyncope, syncope. Taking his medications as directed. 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 [facility] Medical History ACS (acute coronary syndrome) Diabetic retinopathy Diabetes Hypertension CKD (chronic kidney disease) Exertional chest pain Smoker Surgical History Hx of CABG Stented coronary artery Hx of cardiac catheterization Family History Mother No problems noted. Father No problems noted. Social History e-Cigarette/Vaping Use: Never Used Current occupational status: unemployed Cognitive needs: No Hearing needs: No Vision needs: Yes (wears glasses) Review of Systems Const All systems reviewed & are unremarkable except as noted in HPI and below ENT Denies dizziness Card Denies chest pain, Denies chest pain at rest, Denies chest pain with activity, Denies rapid heart rate, Denies pedal edema, Denies edema, Denies leg edema, Denies lightheadedness, Denies palpitations, Denies dyspnea, Denies dyspnea on exertion and Denies orthopnea Resp Denies cough, Denies dyspnea and Denies dyspnea on exertion GI Denies hematochezia and Denies change in stool character Musc Denies abnormal gait, Denies limited range of motion, Denies muscle cramps, Denies muscle weakness, Denies numbness, Denies radiating pain into limb, Denies stiffness and Denies tingling Neuro Denies abnormal gait, Denies dizziness, Denies numbness and Denies tingling Endo Denies palpitations Physical Exam Vital Signs: Last Vital Signs Pulse 74 01/08/25 09:43 BP 138/72 01/08/25 09:43 BMI result Body Mass Index 29.0 Const General: cooperative, healthy appearing, comfortable and no acute distress Orientation/consciousness: patient oriented x3 Neck Neck: Yes normal visual inspection and Yes no JVD Chest Other: sternal scar well healed. Resp Effort & Inspection: normal respiratory effort Auscultation: clear to auscultation bilaterally, no crackles, no rales, no rhonchi and no wheezes Cardio Jugular venous distension: no JVD Rate: regular rate Rhythm: regular rhythm Heart sounds: S1 normal heart sound present, S2 normal heart sound present, no murmurs and no rubs Neuro General: patient oriented x3 Extrem General: Yes normal to inspection and No no pedal edema Psych Appearance: grossly normal Mental Status: mental status grossly normal Speech and movement: Normal speech and movement present Assessment & Plan Assessment & Plan (1) CAD (coronary artery disease): Code(s): I25.10 - Atherosclerotic heart disease of [place] coronary artery without angina pectoris Category: Medical Plan: History of CAD with ACS 04/2023 with cardiac catheterization and ARI placed to OM2. He had an echocardiogram 02/22/2024 showing EF 35-40%, grade 1 diastolic dysfunction with regional wall motion abnormality consistent with ischemic cardiomyopathy. (prior echo 08/24/2023 showed EF 51% with inferior and anterior lateral wall motion abnormalities) this led to a nuclear stress test was done on 05/08/2024 which was abnormal, leading to cardiac catheterization on 06/12/2024 showing significant CAD with recommendation for coronary artery bypass grafting. He underwent three-vessel coronary artery bypass grafting on 08/13/2024 and is currently doing well in his recovery. Echocardiogram done 10/29/2024 showed EF 65-70% and no regional wall motion abnormality. Continue cardiac rehab. Continue aspirin indefinitely. Continue atorvastatin and Zetia with ideal LDL goal less than 70. Continue carvedilol. He is not on Entresto due to low blood pressure readings and CKD. On last visit he was taken off Lasix and Aldactone. Cardiology follow-up 3 months, sooner if needed. (2) S/P CABG x 3: Comment: 08/15/24 WATTERS to LAD, SVG to PDA, RA to OM Code(s): Z95.1 - Presence of aortocoronary bypass graft Category: Surgical (3) S/P cardiac catheterization: Comment: 06/12/2024, left main normal, lad mid 70% stenosis, IFR 0.83, OM1 ISR 90%, OM2 s tent present, proximal RCA 35% stenosis, right PDA 85% stenosis, Coronary artery bypass grafting referral made Code(s): Z98.890 - Other specified postprocedural states Category: Surgical (4) Stented coronary artery: Comment: April 2023 present with acute coronary syndrome undergoing drug-eluting stent to OM2 for 95% stenosis. Mild disease in RCA and LAD. 85% lesion in the proximal section RPDA Code(s): Z95.5 - Presence of coronary angioplasty implant and graft Category: Surgical (5) Hypertension: Code(s): I10 - Essential (primary) hypertension Category: Medical Plan: Blood pressure goal less than 130/80. Blood pressure is today 138/72, recheck by me later in visit 124/62. Continue carvedilol. (6) Cardiomyopathy: Code(s): I42.9 - Cardiomyopathy, unspecified Category: Medical Plan: Echo 02/2024 with new cardiomyopathy. He has since undergone three-vessel coronary artery bypass grafting and repeat echocardiogram showing normalization of EF. No signs of heart failure on examination. He is not requiring diuretics. He continues on carvedilol and Farxiga. Plan Time spent on chart review, documentation, interviewed assessment Coding Level of Care Code Est Pt Level 3 (55498) Complex EM visit Add On G2211 Diagnoses CAD (coronary artery disease) I25.10 S/P CABG x 3 Z95.1 S/P cardiac catheterization Z98.890 Stented coronary artery Z95.5 Hypertension I10 Cardiomyopathy I42.9 Time Spent (min) 24
--- OUTSIDE RECORDS SUMMARY | 2025-01-08 10:03 | XMS_ITS | Patient Health Record ---
Author Organization [facility] Address [address] [facility] [place] [id number] Care Team Providers Care Industrial Controls Technician Name Role Phone VICENTE CAGE Primary Care Provider NAVNEET Will [phone] Reason For Referral No Information Medications Medication SIG (Take, Route, Frequency, Duration) Notes Start Date End Date Status Famotidine 40 MG 1 tablet at bedtime Orally Once a day; Duration: 30 day(s) 12/12/2019 Active hydroCHLOROthiazide 12.5 MG 1 capsule in the morning Orally Once a day; Duration: 30 day(s) Active Doxycycline Monohydrate 100 MG 1 capsule Orally Once a day; Duration: 10 day(s) Active Iron (Ferrous Sulfate) 142 ( 45 Fe) MG 1 tablet Orally Once a day; Duration: 30 day(s) Active Lisinopril 20 MG 1 tablet Orally Once a day; Duration: 30 day(s) Active Vitamin D (Ergocalciferol) 1.25 MG (68722 UT) 1 capsule Orally; Duration: 30 day(s) Active Neurontin 100 MG 1 capsule Orally Onc e a day; Duration: 30 day(s) Active Folic Acid 1 MG 1 tablet Orally Once a day; Duration: 30 day(s) Active HumuLIN 70/30 (70-30) 100 UNIT/ML as directed Subcutaneous Active Carvedilol 12.5 MG 1 tablet with food Orally Twice a day; Duration: 30 day(s) Active Zofran 4 MG 1 tablet Orally bid; Duration: 30 day(s) 12/12/2019 Active Social History Tobacco Use: Social History Observation Description Date Details (start date - stop date) Never Smoker NA - NA Tobacco Use/Smoking Question Answer Notes Are you a nonsmoker Problems Problem Type SNOMED Code ICD Code Onset Dates Problem Status W/U Status Risk Notes Problem Anemia in chronic kidney disease (503333309) Anemia in chronic kidney disease (D63.1) Active confirmed Problem Diabetic renal disea se (952967552) 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) Active confirmed Problem Mild recurrent major depression (60837700) Major depressive disorder, recurrent, mild (F33.0) Active confirmed Problem Idiopathic periphera l autonomic neuropathy (73936050) Other idiopathic peripheral autonomic neuropathy (G90.09) Active confirmed Problem Chronic systolic hea rt failure (059037959) Chronic systolic (congestive) heart failure (I50.22) Active confirmed Problem Chronic kidney disea se stage 4 (187487754) Chronic kidney disease, stage 4 (severe) (N18.4) Active confirmed Problem Pure hypercholesterolemia (924801144) Pure hypercholester olemia, unspecified (E78.00) Active confirmed Problem Essential hypertension (I10) Active confirmed Plan Of Treatment Pending Test Test Name Order Date ESOPHAGOGASTRODUODENOSCOPY 12/12/2019 COLONOSCOPY AND BIOPSY 12/12/2019 COVID -19 Testing 12/12/2019 Insurance Providers Payer Name Payer Address Payer Phone Subscriber Number Group Number Insured Name Patient Relationship to Insured Coverage Start Date Coverage End Date [employer] [address] [address] [place] [address] [id number] ELAINE FLEMING Self - patient is the [...]
--- OUTSIDE RECORDS SUMMARY | 2025-01-08 10:03 | XMS_ITS | Encounter Summary ---
Author Organization [facility] Address [address] [place] [address] Phone Care Team Providers Care Bindery Supervisor Name Role Phone Name, Joey MERINO Primary Care Provider Unavailabl e Encounter Details Date Type Department Care Team (Late st Contact Info) Description 08/09/2022 Telephone [facility] [address] [place] [address] Patricia Deras Social History Tobacco [...] Visit [facility] [address] [facility] [address] [place] [phone] Kevin Gates MD [address] [facility] [address] [place] [address] documented as of this encounter Visit Diagnoses Not on filedocumented in this encounter Care Teams Bindery Supervisor Relationship Specialty Start Date End Date Name, MD Joey PCP - General Internal Medicine 07/16/24 documented as of this encounter
--- OUTSIDE RECORDS SUMMARY | 2025-01-08 10:03 | XMS_ITS | Encounter Summary ---
Author Organization [email or web address] Address [address] [place] [address] Care Team Providers Care Molder Pipe Covering Name Role Phone Rosa Deluca PharmD Unavailable [phone] Name, Joey MERINO Primary Care Provider [phone] Reason for Visit * Reason Comments Med Refill Encounter Details Date Type Department Care Team ([facility] st Contact Info) Description 12/09/2024 Refill [facility] [address] [place], [place] [id number] Name, MD Joey [address] [place] [address] Social History Tobacco Use Types Packs/Day Years [...] Description 01/13/2025 9:00 AM EDT Medication Management [address] [address] Rosa Deluca, PharmD [address] [place] [address] 03/03/2025 9:15 AM EDT Office Visit [address] [address] Name, MD Joey [address] [place] [address] 03/16/2025 10:00 AM EDT Clinical Support [address] [address] Remedios Calderon RN documented as of this encounter Goals Goal Patient Goal Type Associated Problems Recent Progress Patient-Stated? Author Blood Pressure < 140/90 Blood Pressure 132/62(2024 9:11 AM EDT) No Donald Jhonson Hemoglobin A1c < 7.5 Result Component 6.3( 10:21 AM EDT) No Donald Johnson documented as of this encounter Visit Diagnoses Not on filedocumented in this encounter Additional Health Concerns Assessment Noted Time PHQ-9 Depression Total Score: 8 06/06/19 25 11:44 AM EST documented as of this encounter Care Teams Molder Pipe Covering Relationship Specialty Start Date End Date Name, MD Joey [address] [place] [address] PCP - General Internal Medicine 02/06/24 Rosa Deluca, Martha [address] [place] [address] Pharmacist Internal Medicine 12/03/23 documented as of this encounter
--- OUTSIDE RECORDS SUMMARY | 2025-01-08 10:03 | XMS_ITS | Patient Health Record ---
Author Organization [facility] Address [address] [facility] [address] [place] [address] Care Team Providers Care Wet Finisher Wool Name Role Phone FAUZIA (ODETTEMICHELLE) VICENTE MERINO Primary Care Provider Unavailable Sheldon Pierre Unavailable Allergies No Known Allergies Reason For Referral No Information Medications Medication SIG (Take, Route, Frequency, Duration) Notes Start Date End Date Status carvedilol 12.5 mg tablet 1 tab(s) orall y twice a day; Duration: 90 days Active D 2000 IU 2000 intl units tablet as directed orally once a day 03/24/2020 Active Vitamin C CR 1000 mg tablet, extended release 1 tab(s) orally once a day 07/13/2020 Active sodium bicarbonate 650 mg tablet 1 tab(s) orally bid; Duration: 90 days 02/22/2022 Active NovoLIN 70/30 human recombinant 70 units-30 units/mL suspension 0 subcutaneously Acti ve Hyzaar 12.5 mg-50 mg tablet 1 tab(s) orally once a day; Duration: 90 days 02/22/2022 Active gabapentin 100 mg capsule 1 cap(s) orally once a day Active allopurinol 100 mg tablet as directed or ally; Duration: 90 days Active Folic Acid 400 mcg tablet 1 tab(s) orally once a day Active Farxiga 10 mg tablet Take 1 tablet by [facility] once daily orally once a day; Duration: 90 days Active ferrous sulfate 325 mg tablet 1 tab(s) orally once a day A ctive Vitamin B12 1000 mcg tablet 1 tab(s) orally once a day; Duration: 30 day(s) Active atorvastatin 20 mg tablet 1 tab(s) orally once a day Active sodium bicarbonate 650 mg tablet 1 tab(s) orally bid; Duration: 90 days 02/14/2021 Active Immunizations Vaccine Route Administration Date Status Comme nts Influenza (Trivalent Split V irus) pre-filled syringe Unknown 11/12/2017 Refused INFLUENZA not Administered Unknown 06/25/2019 Refused Influenza Quadrivalent pre-f illed syringe Unknown 10/22/2019 Refused PneumoVax Unknown 11/12/2017 Refused PneumoVax Unknown 06/25/2019 Refused PneumoVax Unknown 10/22/2019 Refused Social History Social History Additional Details Category Social Info Options Details General Alcohol no no Caffeine yes 1-2 cups per day Marital status Blood Transfusions no Place [place] Problems Problem Type SNOMED Code ICD Code Onset Dates Problem Status W/U Status Risk Notes Problem Hyperkalemia (26780399) Hyperkalemia (E87.5) Active confirmed Problem Acidosis (37744092) Metabolic ac idemia (E87.2) Active confirmed Problem Hypertension (40150731) HTN (hypertension) (I10) Active confirmed Problem Coronary artery disease (48371180) CAD (coronary artery disease) (I25.10) Active confirmed Problem Anemia of renal disease (760501735) Anemia of renal disease (D63.1) Active confirmed Problem DM - Diabetes mellitus (64524970) DM (diabetes mellitus) (E11.9) Active confirmed Problem Diabetic retinopathy (8450369) Diabetic retinopathy (E11.319) Active confirmed Problem Hyperphosphatemia (57010313) Hyperphosphatemia (E83.39) Active confirmed Problem Secondary hyperparathyroidism (84555452) Secondary hyperparathyroidism (N25.81) Active confirmed Problem Vitamin D deficiency (94281237) Vitamin D insufficiency (E55.9) Active confirmed Problem Proteinuria (46780628) Proteinuria (R80.9) Active confirmed Problem Hyperlipidemia (14189825) Hyperlipidemia (E78.5) Active confirmed Problem Requires vaccination (780635914) Pneumococcal vaccine administered (Z23) Active confirmed Problem Chronic kidney disease stage 3B (disorder) (612585374) CKD stage G3b/A3, GFR 30-44 and albumin creatinine ratio >300 mg/g (N18.32) Active confirmed Plan Of Treatment Pending Test Test Name Order Date BMP [...] RPR SCREEN WITH REFLEX TO TITER 11/20/19 Protein Electrophoresis, serum (SPEP) Protein Electrophoresis, Random [...] Coverage Start Date Coverage End Date [facility] [address] [address] [place] [address] [id number] ELAINE FLEMING Self - patient is the insured Medicaid Secondary [address] [place], [place] [phone] [id number] ELAINE FLEMING Self - patient is the insured 9 Medical (General) History Medical History History ICD Code Hypertension Diabetes High cholesterol Angina Depression Hyperkalemia E87.5 Hypokalemia E87.6 COVID-19 U07.1 Surgical History Surgery Date(Month/Year) Eye Laser Surgery 11/2017 Heart Catherization 11/2017 Heart Catherization w stent placecement 03/2017 Eye surgery 05/2013 cataract surgery , rt 03/2019 Cataract (bilateral) Hospitalization History Reason Date(Month/Year) chest [facility] 11/2019
--- OUTSIDE RECORDS SUMMARY | 2025-01-08 10:03 | XMS_ITS | Patient Health Record ---
Author Organization [facility] Address [address] [address] Care Team Providers Care Automatic Paint Sprayer Operator Name Role Phone Data, Migration. Unavailable [phone] Reason For Referral No Information Medications Medication [...] Status W/U Status Risk Notes Problem Heartburn (93043303) Heartburn (R12) 08/18/19 18 Active confirmed [id number] rn Problem Acid reflux (616075508) Acid reflux (K21.9) 08/18/19 18 Active confirmed VB653-Jcdr reflux Problem Abdominal Pain Epigastric (R10.13) 08/18/19 18 Active confirmed AF433-Pcuysuj al Pain Epigastric Problem Flatulence, eructation and gas pain (403572037) Bloating /gas symptom (R14.0) 08/18/19 18 Active confirmed PS550-Elvfgev g /gas symptom Plan Of Treatment No Information Medical (General) History Surgical History Surgery Date(Month/Year) Stent (1) 2016 Eye Surgery (Right) 2017 catheterization 2017
== END 2025-01-08 10:28 | disposition home or self-care (01) ==
LOC: HO.HCS 09:36
PROVIDERS: PCP Nurse Practitioner Family; Visit Provider Nurse Practitioner Family
DX: I25.10 Atherosclerotic heart disease of native coronary artery without angina pectoris (principal); Z95.1 Presence of aortocoronary bypass graft; Z98.890 Other specified postprocedural states; Z95.5 Presence of coronary angioplasty implant and graft; I10 Essential (primary) hypertension; I42.9 Cardiomyopathy, unspecified
CPT/HCPCS: 99213; G2211

== ENCOUNTER → 2025-01-08 09:36 | Outpatient (BNVA) | payer OTHER, SELFPAY | PROVIDERS: PCP Nurse Practitioner Family; Visit Provider Nurse Practitioner Family | DX: I25.10 Atherosclerotic heart disease of native coronary artery without angina pectoris (principal); I42.9 Cardiomyopathy, unspecified; I10 Essential (primary) hypertension; Z95.1 Presence of aortocoronary bypass graft; Z95.5 Presence of coronary angioplasty implant and graft; Z98.890 Other specified postprocedural states | CPT/HCPCS: 99212 ==

== ENCOUNTER 2025-01-28 09:38 | Outpatient (REF) | payer OTHER, SELFPAY ==
--- OUTSIDE RECORDS SUMMARY | 2025-01-28 10:18 | XMS_ITS | Encounter Summary ---
Author Organization [facility] Address [address] [place] [address] Care Team Providers Care Supervisor [employer] Name Role Phone Rosa Deluca PharmD Unavailable [phone] Name, Joey MERINO Primary Care Provider [phone] Reason for Visit * Reason Comments Med Refill Encounter Details Date Type Department Care Team ([facility] st Contact Info) Description 12/09/2024 Refill [facility] [address] [place], [place] [phone] Name, MD Joey [address] [place] [address] Social History Tobacco Use Types Packs/Day Years [...] Care Team (Late st Contact Info) Description 02/10/2025 9:00 AM EDT Medication Management [address] [address] Rosa Deluca, PharmD [address] [place] [address] 03/03/2025 9:15 AM EDT Office Visit [address] [address] Name, MD Joey [address] [place] [address] 03/16/2025 10:00 AM EDT Clinical Support [address] [address] Remedios Calderon RN documented as of this encounter Goals Goal Patient Goal Type Associated Problems Recent Progress Patient-Stated? Author Blood Pressure < 140/90 Blood Pressure 120/68(2024 9:08 AM EDT) No Donald Johnson Hemoglobin A1c < 7.5 Result Component 6.3( 10:21 AM EDT) No Donald Johnson documented as of this encounter Visit Diagnoses Not on filedocumented in this encounter Additional Health Concerns Assessment Noted Time PHQ-9 Depression Total Score: 8 06/06/19 25 11:44 AM EST documented as of this encounter Care Teams Supervisor [employer] Relationship Specialty Start Date End Date Name, MD Joey [address] [place] [address] PCP - General Internal Medicine 02/06/24 Rosa Deluca, Martha [address] [place] [address] Pharmacist Internal Medicine 12/03/23 documented as of this encounter
--- OUTSIDE RECORDS SUMMARY | 2025-01-28 10:19 | XMS_ITS | Encounter Summary ---
Author Organization [facility] Address [address] [place] [address] Care Team Providers Care Home Demonstrator Name Role Phone Emperatriz Stoll Primary Care Provider [phone] Rosa Deluca PharmD Unavailable [phone] Name, Joey MERINO Primary Care Provider [phone] Encounter Details Date Type Department Care Team (Late st Contact Info) Description 04/06/2023 Orders Only [facility] [address] [place] [address] Emperatriz Stoll FNP [address] [place] [address] Social History Tobacco Use Types Packs/Day Years [...] Description 02/10/2025 9:00 AM EDT Medication Management [address] [address] Rosa Deluca, PharmD [address] [place] [address] 03/03/2025 9:15 AM EDT Office Visit [address] [address] Name, MD Joey [address] [place] [address] 03/16/2025 10:00 AM EDT Clinical Support [address] [address] Remedios Calderon, KYLER documented as of this encounter Goals Goal [...] documented as of this encounter Care Teams Home Demonstrator Relationship Specialty Start Date End Date Botas, Emperatriz, RETAIL MAINTENANCE TECHNICIAN [address] [place] [address] PCP - General Family Medicine 07/19/22 02/05/24 Name, MD Joey [address] [place] [address] PCP - General Internal Medicine 02/06/24 Rosa Deluca, DamionD [address] [place] [address] Pharmacist Internal Medicine 12/03/23 documented as of this encounter
--- OUTSIDE RECORDS SUMMARY | 2025-01-28 10:19 | XMS_ITS | Clinical Summary ---
Author Organization [employer] Address [address] [place] [address] Care Team Providers Care Picture Copyist Name Role Phone Rosa Deluca PharmD Unavailable [phone] Name, Joey MERINO Primary Care Provider [phone] Allergies No known active allergies Medications albuterol 108 (90 Base) MCG/ACT inhaler Inhale 2 puffs every 4 (four) hours if needed for wheezing. 18 g 023 Active atorvastatin (Lipitor) 80 MG tablet Take 80 mg by mouth Once per day. 023 Active Farxiga 10 MGIndications:Cont rolled type 2 diabetes mellitus without complication, unspecified whether joint terminal attack controller insulin use ([facility]) Take 1 tablet (10 mg) by mouth Once per day. 90 tablet 3 025 06/24 Active ezetimibe (Zetia) 10 MG tablet TAKE 1 TABLET BY MOUTH EVERY MORNING 90 tablet 3 025 Active lactulose 20 gram/30 mL oral solution Take 30 mL (20 g) by mouth Once per day. 450 mL 3 025 09/09 Active carvedilol (Coreg) 3.125 MG tabletIndications: Hypertension, unspecified type Take 1 tablet (3.125 mg) by mouth with breakfast and with evening meal. 60 tablet 025 Active glucose 4 g chewable tabletIndications: Type 2 diabetes mellitus with hyperglycemia, with long-term current use of insulin ([facility]) Chew 4 tablets (16 g) if needed for low blood sugar. 50 tablet 12 025 Active Ozempic, 0.25 or 0.5 MG/DOSE, 2 MG/3ML solution pen-injector 025 Active insulin pen needle (BD Pen Needle Danielle U/F) 32G x 4 mm miscIndications:Co ntrolled type 2 diabetes mellitus with complication, with long-term current use of insulin ([facility]) USE DIRECTED FOR INSULIN ADMINISTRATION ONCE DAILY 100 each 5 025 Active glucose blood (FreeStyle Precision Virgil Test) test stripIndications:T ype 2 diabetes mellitus with hyperglycemia, with long-term current use of insulin ([facility]) Use to test blood sugar every 8 hours as directed 100 each 11 025 10/07 Active cyanocobalamin (Vitamin B-12) 500 MCG tablet Patient reports purchasing OTC Active clopidogrel (Plavix) 75 MG tablet Take 75 mg by mouth Once per day. Active aspirin (Aspirin Low Dose) 81 MG chewable tabletIndications: Presence of coronary angioplasty implant and graft Chew 1 tablet (81 mg) Once per day. 90 tablet 025 Active Ascorbic Acid (vitamin C) 500 MG tablet TAKE 1 TABLET BY MOUTH EVERY MORNING 30 tablet 2 025 Active insulin glargine (Lantus SoloStar) 100 UNIT/ML penIndications:Con trolled type 2 diabetes mellitus with complication, with long-term current use of insulin ([facility]) INJECT 10 UNITS SUBCUTANEOUSLY once daily AT BEDTIME Active naloxone (Narcan) 4 mg/0.1 mL nasal sprayIndications:L arlene-term current use of opiate analgesic Administer 1 spray (4 mg) into affected nostril(s) if needed for opioid reversal. May repeat every 2-3 minutes if needed, alternating nostrils, until medical assistance becomes available. 2 each 3 025 12/17 Active folic acid (Folvite) 1 MG tabletIndications: Dietary counseling TAKE 1 TABLET BY MOUTH EVERY MORNING 30 tablet 1 025 Active traMADol (Ultram) 50 MG tabletIndications: Other chronic pain TAKE 1 TABLET BY MOUTH EVERY 8 HOURS NEEDED FOR SEVERE PAIN 84 tablet 025 Active tamsulosin (Flomax) 0.4 MG 24 hr capsule TAKE 1 CAPSULE BY MOUTH AT BEDTIME 30 capsule Active gabapentin (Neurontin) 300 MG capsule TAKE 1 CAPSULE BY MOUTH EVERY MORNING 30 capsule Active Continuous Glucose Sensor (FreeStyle Sarina 2 Plus Sensor) miscIndications:Ty pe 2 diabetes mellitus with hyperglycemia, with long-term current use of insulin ([facility]) 1 each every 8 (eight) hours. 2 each Active Lancets 33G miscIndications:Ty pe 2 diabetes mellitus with hyperglycemia, with long-term current use of insulin ([facility]) Use as directed to check blood sugar 3 times daily 100 each 11 025 Active Vascepa 1 g capsule Take 2 capsules by mouth in the morning and 2 capsules in the evening. 023 01/21 Discontinued( Discontinued by another clinician) Lancets (OneTouch Delica Plus [id number]) miscIndications:Ty pe 2 diabetes mellitus without complications ([facility]) USE TO TEST BLOOD SUGAR IN THE MORNING 100 each 12 024 01/23 Discontinued( Other) Continuous Glucose Sensor (FreeStyle Sarina 2 Sensor) misc USE DIRECTED AND CHANGE EVERY 14 DAYS 2 each 5 025 01/21 Discontinued( Other) furosemide (Lasix) 20 MG tablet Take 1 tablet (20 mg) by mouth Once per day. 30 tablet 01/21 Discontinued( Med list cleanup (will not trigger notification to Pharmacy)) spironolactone (Aldactone) 25 MG tabletIndications: Hypertension, unspecified type Take 1 tablet (25 mg) by mouth Once per day. 30 tablet 025 01/21 Discontinued( Med list cleanup (will not trigger notification to Pharmacy)) folic acid (Folvite) 1 MG tabletIndications: Dietary counseling TAKE 1 TABLET BY MOUTH EVERY MORNING 30 tablet 1 025 01/01 Discontinued amiodarone (Pacerone) 200 MG tabletIndications: Coronary arteriosclerosis TAKE 1 TABLET BY MOUTH TWICE DAILY IN THE MORNING AND IN THE EVENING 60 tablet 1 025 01/21 Discontinued( Med list cleanup (will not trigger notification to Pharmacy)) traMADol (Ultram) 50 MG tabletIndications: Other chronic pain Take 1 tablet (50 mg) by mouth every 8 (eight) hours if needed for severe pain for up to 28 days. 84 tablet 025 01/06 Discontinued gabapentin (Neurontin) 300 MG capsule Take 1 capsule (300 mg) by mouth in the morning. 30 capsule 025 01/08 Discontinued tamsulosin (Flomax) 0.4 MG 24 hr capsule Take 1 capsule (0.4 mg) by mouth at bedtime. 30 capsule 025 01/08 Discontinued Active Problems Problem Noted Date Diagnosed Date Long-term current use of opiate analgesic 2024 Missing teeth, acquired 10/15/2024 Normal oral exam 10/15/2024 History of coronary artery bypass graft x 3 09/03 Class 1 obesity 06/24/2024 Advanced periodontitis 04/09/2024 [...] -compressions stockings 20-30 mmHg requested today to [facility] RN -pt has apt w PCP 12/21/2023 [...] Encounters Date Type Department Care Team Description 01/21/2025 Telephone [facility] [address] [place] [address] Rosa Deluca, PharmD 01/21/2025 Travel 01/12/2025 Telephone [facility] [address] [place] [address] Joey Barreto MD Prior Auth Prescription (Pt requesting authorization on sensors , pharmacy explained to pt he needs in order to get sensors ) 01/09/2025 Telephone [facility] [address] [place] [address] Joey Barreto MD Prior Authorization 01/08/2025 Refill [facility] [address] [place], [place] [phone] Joey Barreto MD 01/06/2025 Refill [facility] [address] [place] [address] Joey Barreto MD Other chronic pain 01/01/2025 Refill [facility] [address] [place] [address] Joey Barreto MD Dietary counseling 12/17/2024 9:00 AM EDT Clinical Support [facility] [address] [place] [address] Remedios Calderon, RN Long-term current use of opiate analgesic (Primary Dx) 12/17/2024 Refill [facility] [address] [place] [address] Remedios Calderon, RN Long-term current use of opiate analgesic (Primary Dx) 12/17/2024 Travel 12/09/2024 Refill [facility] [address] [place] [address] Joey Barreto MD 12/09/2024 Refill [facility] MED[facility] [address] [place] [address] Lindsay Toscano MD 12/09/2024 Refill [facility] [address] [place] [address] Joey Barreto MD 12/09/2024 Refill [facility] MEDICINE [address] [place] [address] Lindsay Toscano MD 12/09/2024 Refill [facility] [address] [place], [place] [phone] Joey Barreto MD 12/09/2024 Travel 12/08/2024 Refill [facility] [address] [place], [place] [phone] Joey Barreto MD Other chronic pain 12/08/2024 Telephone [facility] [address] [place] [address] Remedios Calderon, KYLER Error (VOID this visit) 11/30/2024 Refill [facility] [address] [place] [address] Joey Barreto MD Coronary arteriosclerosis 11/21/2024 9:00 AM EDT Office Visit [facility] [address] [place] [address] Joey Barreto MD Controlled type 2 diabetes mellitus with complication, with long-term current use of insulin ([facility]) (Primary Dx); Hypoglycemia; History of coronary artery bypass graft x 3 11/21/2024 Travel 11/19/2024 Telephone [facility] [address] [place] [address] France Mitchell [place] CHARTPREP 11/10/2024 Refill [facility] [address] [place] [address] Joey Barreto MD Presence of coronary angioplasty implant and graft 11/09/2024 Refill [facility] [address] [place] [address] Emperatriz Stoll FNP Presence of coronary angioplasty implant and graft 11/07/2024 Telephone [facility] [address] [place] [address] Rosa Deluca, PharmD 11/07/2024 Travel 11/05/2024 Refill [facility] [address] [place], [place] [phone] Joey Barreto MD Other chronic pain from Last 3 Months Immunizations Immunization Administration Dates Next Due Hep A, Adult [...] Sign Reading Time Taken Comments Blood Pressure 120/68 01/21/2025 9:08 AM EDT Pulse 75 01/21/2025 9:08 AM EDT Temperature 36.3 C (97.3 F) 11/21/2024 8:56 AM EDT Respiratory Rate 18 11/21/2024 8:56 AM EDT Oxygen Saturation 98% 11/21/2024 8:56 AM EDT Inhaled Oxygen Concentration - - Weight 80.3 kg (177 lb) 11/21/2024 8:56 AM EDT Height 165.1 cm (5' 5 ) 11/21/2024 8:56 AM EDT Body Mass Index 29.45 11/21/2024 8:56 AM EDT Plan of Treatment Upcoming Encounters Date Type Department Care Team (Late st Contact Info) Description 02/10/2025 9:00 AM EDT Medication Management [facility] [address] [place] [phone] Rosa Deluca, PharmD [address] [place] [address] 03/03/2025 9:15 AM EDT Office Visit [facility] [address] [place] [address] Name, MD Joey [address] [place] [address] 03/16/2025 10:00 AM EDT Clinical Support [address] [address] Remedios Calderon, RN Health Maintenance Due Date Last Done Comments CT Colonography 1960 Colonoscopy 1960 Colorectal Cancer Screening 1960 FIT DNA/Cologuard 1960 FIT 1960 FOBT 1960 HIV Screening 1960 Sigmoidoscopy 1960 Hepatitis C Screening 1978 Dental Prophylaxis 10/08/2024 04/09/2024, 0 10/16/2023, 08/31/2022 SDOH Screening 02/27/2025 02/28/2024 Diabetes: Foot Exam 03/07/2025 03/07/2024, 03/07/2024, 03/07/2024, Additional history exists Dental Oral Exam 04/18/2025 10/15/2024, , 08/08/2022 Anal Pap 05/06/2025 05/06/2024 Diabetes: Hemoglobin A1C 05/09/2025 025, 07/14/2024, 05/12/2024, Additional history exists Lipid Panel 06/02/2025 06/02/2024, 04/04, 08/09/2023, Additional history exists Alcohol/Substance Use Screening 06/06/2025 06/06/2024 Depression Screening 06/06/2025 06/06/2024, 06/06/19 Eye Exam 06/18/2025 06/18/2024, 06/04, 06/18/2024, Additional history exists Dental X-Ray: Full Mouth 08/09/2025 08/08/2022 Dental X-Ray: Bitewings 10/16/2025 10/16/19, 10/16/2023, 08/08/2022 Disability Screening 11/21/2025 11/21/2024 Tobacco Screening 11/21/2025 11/21/2024 COVID-19 Vaccine Discontinued 06/07/2022, , 10/06/2020 DTaP/Tdap/Td [...] patient's age to complete this topic Meningococcal B Vaccine Aged Out No l onger eligible based on patient's age to complete [...] Component 6.3( 10:21 AM EDT) No Donald Jhonson Procedures Procedure Name Priority Date/Time Associated Diagnosis Comments POCT TRINITY-14 URINE DRUG SCREEN Routine 12/17/2024 9:19 AM EDT Long-term current use of opiate analgesic POCT GLUCOSE Routine 11/21/2024 8:57 AM EDT Controlled type 2 diabetes mellitus with complication, with long-term current use of insulin ([facility]) POCT GLYCATED HEMOGLOBIN, TOTAL Routine 11/07/2024 10:21 AM EDT Type 2 diabetes mellitus with hyperglycemia, with long-term current use of insulin ([facility]) BITEWINGS - 4 RADIOGRAPHIC IMAGES Routine 10/15/2024 11:00 AM EDT PERIODIC ORAL EVALUATION - ESTABLISHED PATIENT Routine 10/15/2024 11:00 AM EDT LIPID PANEL, STANDARD Routine 06/02/2024 9:33 AM EST CYTOPATH-CELL ENHANCED Routine 05/06/2024 4:37 PM EST PROPHYLAXIS - ADULT Routine 04/09/2024 8 :00 AM EST Gingival bleeding Dental calculus Advanced periodontitis INTRAORAL - COMPLETE SERIES OF RADIOGRAPHIC IMAGES Routine 08/08/2022 9:00 AM EST from Last 3 Months or Most Recently Relevant to Health Maintenance Results * POCT TRINITY-14 Urine Drug Screen (12/17/2024 9:19 AM EDT) Pathologist [facility] THC Negative Negative Cocaine Screen, Urine Negative Negative Opiate Screen, Urine Negative Negative Methamphetamine Screen Urine Negative Negative Amphetamine Screen, Urine Negative Negative Benzodiazepines Screen, Urine Negative Negative Barbiturate Screen, Urine Negative Negative Methadone Screen, Urine Negative Negative Buprenophine Screen, Urine Negative Negative TCA, Urine Negative Negative MDMA Urine Negative Negative ng/mL Oxycodone Screen, Urine Negative Negative Phencyclidine (PCP), Urine Negative Negative Propoxyphene, Urine Negative Negative Fentanyl, Urine Negative Negative Urine Urine specimen obtained by clean catch procedure / Unknown 12/17/2024 9:19 AM EDT Narrative Remedios Calderon RN - 12/17/2024 9:19 AM EDT UTOX cup Lot#[id number] Exp. 03/10/26 Internal Pass Control us Joey Barreto MD POINT OF CARE TEST ENTER/EDIT OR DERABLES Final Result * POCT Glucose (11/21/2024 8:57 AM EDT) Pathologist [facility] Glucose Blood, POC 130 60 - 200 mg/dL QC Media Lot # [id number] Lot# Expiration Date Blood Capillary blood specimen / Unknown 11/21/2024 8:57 AM EDT us Joey Barreto MD POINT OF CARE TEST ENTER/EDIT OR DERABLES Final Result * (ABNORMAL) POCT A1C (11/07/2024 10:21 AM EDT) Pathologist [facility] Hemoglobin A1C 6.3(A) 4.0 - 6.0 % QC Media Lot # [id number] Lot# Expiration Date [id number] Blood 11/07/2024 10:2 1 AM EDT us Joey Name MD POINT OF CARE TEST ENTER/EDIT OR DERABLES Final Result * (ABNORMAL) Lipid Panel, Standard (06/02/2024 9:33 AM EST) Triglycerides 68 <150 mg/dL [facility] Comment:Desirable Triglyceri de: less than 150 mg/dLBorderline High Triglyceride 150-199 mg/dLHigh Triglyceride: 200-499 mg/dLVery High Triglyceride: greater than or equal to 5OO mg/dL Cholesterol 91 <200 mg/dL [facility] Comment:Desirable Cholestero l: less than 200 mg/dLBorderline High Cholesterol: 200-239 mg/dLHigh Cholesterol: greater than 239 mg/dL LDL Cholesterol Calculated 55 <100 mg/dL [facility] Comment:Desirable LDL: less than 100 mg/dLNear Optimal/Above Optimal LDL: 110- 129 mg/dLBorderline High LDL: 130-159 mg/dLHigh LDL: 160-189 mg/dLVery High LDL: greater than or equal to 190 mg/dL HDL Cholesterol 23(L) >40 mg/dL [facility] Comment:Desirable HDL: great er than 40 mg/dL Note: This HDL assay may give artificially low results in patients with liver disease. 06/02/2024 9:33 AM EST 06/02/2024 9:33 AM EST us Generic External Data Provider LAB BLOOD ORDERAB LES Final Result [facility] [address] [place] [phone] * Cytopath-cell enhanced (05/06/2024 4:37 PM EST) 05/06/2024 4:37 PM EST 05/07/2024 1:25 PM EST [facility] - 05/09/2024 9:42 AM EST ----- ------- Name: Efrain Dewitt Age/Sex: 63/M : 1960 Unit#: [id number] Attend Dr: Elmira Mcdonald [facility] Re05/06/24 Status: [facility] Disch: ----- ------- SPEC : [id number] RECD: 05/07/24-1325 STATUS: RYAN MELO NUM: [id number] ARPAN: 05/06/24-[address] [facility] [address]: Elmira Mcdonald [facility] ENTERED: 05/07/24-1415 SP TYPE: Cytology OT DR: Emperatriz Stoll NP ORDERED: Cyto-enhanced Diagnosis Urine: Negative for high-grade urothelial carcinoma. See comment. COMMENT: Paucicellular specimen consisting of occasional single urothelial cells with degenerative changes, few squamous cells, red blood cells and occasional lymphocytes. Clinical History Other microscopic hematuria Material Received Urine Gross Description Received is 25 cc of clear yellow fluid from which a ThinPrep slide is prepared. Copies To: Emperatriz Stoll UNIT TECHNICIAN [address] [place] [address] Elmira Mcdonald COUNTS INCLUDE 234 BEDS AT THE [facility] [address] [place] [address] [address]. [address]dom [address] [place] [address] [email or web address] ----- ------- Signed (signature on file) Jeanmarie Chavez MD 05/09/24 0942 ----- ------- END OF REPORT Generic External Data Provider LAB [facility]OLOGY [facility] Final Result [facility] [address] [place] [phone] from Last 3 Months or Most Recently Relevant to Health Maintenance Insurance [facility] CARE < 65 [facility] STANDARD DENTAL [facility] Care Teams Picture Copyist Relationship Specialty Start Date End Date Name, MD Joey [address] [place] [address] PCP - General Internal Medicine 02/06/24 Rosa Deluca PharmD [address] [place] [address] Pharmacist Internal Medicine 12/03/23
--- OUTSIDE RECORDS SUMMARY | 2025-01-28 10:19 | XMS_ITS | Patient Health Record ---
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) Active confirmed Problem Mild recurrent major depression (02177557) Major depressive disorder, recurrent, mild (F33.0) Active confirmed Problem Idiopathic periphera l autonomic neuropathy (33532185) Other idiopathic peripheral autonomic neuropathy (G90.09) Active confirmed Problem Chronic systolic hea rt failure (023118584) Chronic systolic (congestive) heart failure (I50.22) Active confirmed Problem Chronic kidney disea se stage 4 (056009475) Chronic kidney disease, stage 4 (severe) (N18.4) Active confirmed Problem Pure hypercholesterolemia (109738025) Pure hypercholester olemia, unspecified (E78.00) Active confirmed Problem Essential hypertensi on (04544695) Essential hypertension (I10) Active confirmed Plan Of Treatment Pending Test Test Name Order Date ESOPHAGOGASTRODUODENOSCOPY 12/12/2019 COLONOSCOPY AND BIOPSY 12/12/2019 COVID -19 Testing 12/12/2019 Insurance Providers Payer Name Payer Address Payer Phone Subscriber Number Group Number Insured Name Patient Relationship to Insured Coverage Start Date Coverage End Date [employer] [address] [address] [place] [address] [phone] [id number] ELAINE FLEMING Self - patient is the [...]
--- OUTSIDE RECORDS SUMMARY | 2025-01-28 10:19 | XMS_ITS | Encounter Summary ---
Author Organization [employer] Address [address] [place] [address] Care Team Providers Care Shrink Pit Operator Name Role Phone Emperatriz Stoll Primary Care Provider [phone] Rosa Deluca PharmD Unavailable [phone] Name, Joey MERINO Primary Care Provider [phone] Reason for Visit * Reason Comments Med Refill Encounter Details Date Type Department Care Team (Late st Contact Info) Description 01/12/2023 Refill [facility] [address] [place] [address] Emperatriz Stoll FNP [address] [place] [address] Other chronic pain Social History Tobacco Use [...] Description 02/10/2025 9:00 AM EDT Medication Management [address] [address] Rosa Deluca PharmD [address] [place] [address] 03/03/2025 9:15 AM EDT Office Visit [address] [address] Joey Barreto MD [address] [place] [address] 03/16/2025 10:00 AM EDT Clinical Support [address] [address] Remedios Calderon, KYLER documented as of this encounter Visit Diagnoses Diagnosis Other chronic pain documented in this encounter Additional Health Concerns Assessment Noted Time PHQ-9 Depression Total Score: 0 12/14/19 11:09 AM EDT documented as of this encounter Care Teams Shrink Pit Operator Relationship Specialty Start Date End Date Emperatriz Stoll FNP [address] [place] [address] PCP - General Family Medicine 07/19/22 02/05/24 Joey Barreto MD [address] [place] [address] PCP - General Internal Medicine 02/06/24 Rosa Deluca PharmD [address] [place] [address] Pharmacist Internal Medicine 12/03/23 documented as of this encounter
--- OUTSIDE RECORDS SUMMARY | 2025-01-28 10:19 | XMS_ITS | Encounter Summary ---
Author Organization [email or web address] Address [address] [facility] [address] [place] [address] Care Team Providers Care Forest Technology Professor Name Role Phone Rosa Deluca PharmD Unavailable [phone] NameJoey MD Primary Care Provider [phone] Reason for Visit * Reason Onset Date Comments Appointment Request 08/25/2024 Encounter Details Date Type Department Care Team ([facility] Contact Info) Description 08/25/2024 Telephone [facility] MED[facility] [address] [place] [address] Name, MD Joey [address] [place] [address] Appointment Request Social History Tobacco Use Types [...] 08/25/2024 2:03 PM EDT Pt discharged from [facility] 08/21/24 Dx: CKD, Chronic Anemia, CAD, S/P [...] Got Surgery done 08/15/24. Contact pt at [phone] documented in this encounter Plan of Treatment Upcoming Encounters Date Type Department Care Team (Late st Contact Info) Description 02/10/2025 9:00 AM EDT Medication Management [facility] MED[facility] [address] [place] [address] Rosa Deluca, PharmD [address] [place] [phone] 03/03/2025 9:15 AM EDT Office Visit [address] [address] [place] [address] 03/16/2025 10:00 AM EDT Clinical Support [address] [address] Remedios Calderon, KYLER documented as of this [...] documented as of this encounter Care Teams Forest Technology Professor Relationship Specialty Start Date End Date NameJoey MD [address] [place] [phone] PCP - General Internal Medicine 02/06/24 Rosa Deluca, Martha [address] [place] [phone] Pharmacist Internal Medicine 12/03/23 documented as of this encounter
--- OUTSIDE RECORDS SUMMARY | 2025-01-28 10:19 | XMS_ITS | Encounter Summary ---
Author Organization [employer] Address [address] [place] [address] 7t [place] [address] Care Team Providers Care Director Of First Impressions Name Role Phone Rosa Deluca PharmD Unavailable [phone] Name, Joey MERINO Primary Care Provider [phone] Encounter Details Date Type Department Care Team ([facility] st Contact Info) Description 12/09/2024 Refill [facility] [address] [place] [address] Lindsay Toscano MD [address] [place] [address] Social History Tobacco Use Types Packs/Day Years [...] encounter Miscellaneous Notes * Telephone Encounter - Lindsay Gibson MD - 12/09/2024 4:48 PM EDT PCP sent med already documented in this encounter Plan of Treatment Upcoming Encounters Date Type Department Care Team (Late st Contact Info) Description 02/10/2025 9:00 AM EDT Medication Management [address] [address] Rosa Deluca, DamionD [address] [place] [address] 03/03/2025 9:15 AM EDT Office Visit [address] [address] Name, MD Joey [address] [place] [address] 03/16/2025 10:00 AM EDT Clinical Support [address] [address] Remedios Calderon, KYLER documented as of this [...] of this encounter Care Teams Director Of First Impressions Relationship Specialty Start Date End Date Name, MD Joey [address] [place] [address] PCP - General Internal Medicine 02/06/24 Rosa Deluca, Martha [address] [place] [address] Pharmacist Internal Medicine 12/03/23 documented as of this encounter
--- OUTSIDE RECORDS SUMMARY | 2025-01-28 10:19 | XMS_ITS | Patient Health Record ---
Author Organization [facility] Address [address] [address] Care Team Providers Care Environmental Protection Forester Name Role Phone Data, Migration. Unavailable [phone] Reason For Referral No Information Medications Medication SIG (Take, Route, Frequency, Duration) Notes Start Date End Date Status Carvedilol 12.5 MG Tablet Oral 0 Source DrugName : carvedilol; Prescribed by : SIG : Active Lisinopril-hydroCHLORO thiazide 20-12.5 MG Tablet Oral 0 Source DrugName : lisinopril-hydroc hlorothiazide; [...] Active Ferrous Sulfate 325 (65 Fe) MG Tablet Oral 0 Source DrugName : ferrous sulfate; [...] : SIG : Active Spironolactone 50 MG Tablet Oral 50 Source DrugName : spironolactone; Prescribed by : SIG : Take 1 tablet by mouth once a day Active Social History Social History Additional Details Category Social Info Options Details Migrated Social History Migrated Social History Alcohol History : None , Caffeine History : Coffee , Exercise History : None , Number of Children : 4 , Occupation History : unemployed , Tobacco History : Never Smoked Problems Problem Type SNOMED Code ICD Code Onset Dates Problem Status W/U Status Risk Notes Problem Heartburn (91874132) Heartburn (R12) 08/18/19 Active confirmed OQ178-Bodpojh rn Problem Acid reflux (728875447) Acid reflux (K21.9) 08/18/19 18 Active confirmed QQ610-Kbdr reflux Problem Epigastric pain (65489902) Abdominal Pain Epigastric (R10.13) 08/18/19 18 Active confirmed PS422-Wlysnvz al Pain Epigastric Problem Flatulence, eructation and gas pain (017595978) Bloating /gas symptom (R14.0) 08/18/19 18 Active confirmed VI507-Ntdpflq g /gas symptom Plan Of Treatment No Information Medical (General) History Surgical History Surgery Date(Month/Year) Stent (1) 2017 Eye Surgery (Right) 2017 catheterization 2017
--- OUTSIDE RECORDS SUMMARY | 2025-01-28 10:19 | XMS_ITS | Encounter Summary ---
Author Organization [employer] Address [address] [facility] 7t [place] [address] Care Team Providers Care Special Agent Secret Service Name Role Phone Emperatriz Stoll Primary Care Provider [phone] Rosa Deluca PharmD Unavailable [phone] Name, Joey MERINO Primary Care Provider [phone] Reason for Referral * Consultation (Routine) - Closed Specialty Diagnoses / Procedures Referred By Justina willis Referred To Contact Nutrition Diagnoses Controlled type 2 diabetes mellitus without complication, with long-term current use of insulin (CMS/HCC) Emperatriz Stoll FNP [address] [place] [address] Phone: tel: fax: Referral ID Status Reason Start Date Expiration Date V isits Requested Visits Authorized [id number] Closed Specialty Services Required 11/06/2023 11/05/2024 1 1 Encounter Details Date Type Department Care Team (Late st Contact Info) Description 11/06/2023 Orders Only [facility] [address] [place] [address] Emperatriz Stoll FNP [address] [place] [address] Controlled type 2 diabetes mellitus without complication, [...] Description 02/10/2025 9:00 AM EDT Medication Management [facility] [address] [place] [address] Rosa Deluca, PharmD [address] [place] [address] 03/03/2025 9:15 AM EDT Office Visit [facility] [address] [place] [address] Name, MD Joey [address] [place] [address] 03/16/2025 10:00 AM EDT Clinical Support [facility] [address] [place] [address] Remedios Calderon, KYLER Scheduled Referrals Name Type Priority Associated Diagnoses [...] as of this encounter Care Teams Special Agent Secret Service Relationship Specialty Start Date End Date Emperatriz Stoll FNP [address] [place] [address] PCP - General Family Medicine 07/19/22 02/05/24 Name, MD Joey [address] [place] [address] PCP - General Internal Medicine 02/06/24 Rosa Deluca PharmD [address] [place] [address] Pharmacist Internal Medicine 12/03/23 documented as of this encounter
--- OUTSIDE RECORDS SUMMARY | 2025-01-28 10:19 | XMS_ITS | Patient Health Record ---
Author Organization [facility] Address [address] [facility] [address] [place] [address] Care Team Providers Care Pump Installer Name Role Phone FAUZIA (ODETTEMICHELLE) VICENTE MERINO [...] 10 mg tablet Take 1 tablet by [facility] once daily orally once a day; [...] day Marital status Blood Transfusions no Place [place] Problems Problem Type SNOMED Code ICD Code Onset Dates Problem Status W/U Status Risk Notes Problem Hyperkalemia (36828562) Hyperkalemia (E87.5) Active confirmed Problem Acidosis (47819012) Metabolic ac idemia (E87.2) Active confirmed Problem Hypertension (68591940) HTN (hypertension) (I10) Active confirmed Problem Coronary artery disease (61501691) CAD (coronary artery disease) (I25.10) Active confirmed Problem Anemia of renal disease (698953378) Anemia of renal disease (D63.1) Active confirmed Problem DM - Diabetes mellitus (82896572) DM (diabetes mellitus) (E11.9) Active confirmed Problem Diabetic retinopathy (7647649) Diabetic retinopathy (E11.319) Active confirmed Problem Hyperphosphatemia (23858004) Hyperphosphatemia (E83.39) Active confirmed Problem Secondary hyperparathyroidism (57041146) Secondary hyperparathyroidism (N25.81) Active confirmed Problem Vitamin D deficiency (25676872) Vitamin D insufficiency (E55.9) Active confirmed Problem Proteinuria (31510671) Proteinuria (R80.9) Active confirmed Problem Hyperlipidemia (32135903) Hyperlipidemia (E78.5) Active confirmed Problem Requires vaccination (332950375) Pneumococcal vaccine administered (Z23) Active confirmed Problem Chronic kidney disease stage 3B (disorder) (368936905) CKD stage G3b/A3, GFR 30-44 and albumin [...] Insured Coverage Start Date Coverage End Date [facility] [address] [address] [place] [id number] ELAINE FLEMING Self - patient is the insured Medicaid Secondary [address] [place], [place] [id number] [phone] [id number] ELAINE FLEMING Self - patient is the insured 9 Medical (General) History Medical History History ICD Code Hypertension Diabetes High cholesterol Angina Depression Hyperkalemia E87.5 Hypokalemia E87.6 COVID-19 U07.1 Surgical History Surgery Date(Month/Year) Eye Laser Surgery 11/2017 Heart Catherization 11/2017 Heart Catherization w stent placecement 03/2017 Eye surgery 05/2013 cataract surgery , rt 03/2019 Cataract (bilateral) Hospitalization History Reason Date(Month/Year) chest pain @[facility] 11/2019
--- OUTSIDE RECORDS SUMMARY | 2025-01-28 10:19 | XMS_ITS | Encounter Summary ---
Author Organization [facility] Address [address] [facility] [address] 7t [place] [address] Care Team Providers Care Ice Guard Skating Rink Name Role Phone Emperatriz Stoll Primary Care Provider [phone] Rosa Deluca PharmD Unavailable [phone] Name, Joey MERINO Primary Care Provider [phone] Encounter Details Date Type Department Care Team ([facility] Contact Info) Description 08/21/2022 Orders Only [facility] MED[facility]INE [address] [place] [address] Emperatriz Stoll FNP [address] [place] [address] Social History Tobacco Use Types Packs/Day Years [...] Department Care Team (Late Contact Info) Description 02/10/2025 9:00 AM EDT Medication Management [address] [address] Rosa Deluca PharmD [facility] [place] [address] 03/03/2025 9:15 AM EDT Office Visit [address] [address] Joey Barreto MD [facility] [place] [address] 03/16/2025 10:00 AM EDT Clinical Support [address] [address] Remedios Calderon, KYLER documented as of this encounter Visit Diagnoses Not on filedocumented in this encounter Additional Health Concerns Assessment Noted Time PHQ-9 Depression Total Score: 7 07/19/19 23 3:07 PM EST documented as of this encounter Care Teams Ice Guard Skating Rink Relationship Specialty Start Date End Date Emperatriz Stoll FNP [facility] [place] [address] PCP - General Family Medicine 07/19/22 02/05/24 [place] [address] PCP - General Internal Medicine 02/06/24 Rosa Deluca PharmD [address] [place] [address] Pharmacist Internal Medicine 12/03/23 documented as of this encounter
--- OUTSIDE RECORDS SUMMARY | 2025-01-28 10:19 | XMS_ITS | Encounter Summary ---
Author Organization [facility] Address [address] [facility] [address] 7t [place] [address] Care Team Providers Care Head Girls Golf Coach Name Role Phone Emperatriz Stoll Primary Care Provider [phone] Rosa Deluca PharmD Unavailable [phone] Name, Joey MERINO Primary Care Provider [phone] Encounter Details Date Type Department Care Team ([facility] Contact Info) Description 10/20/2022 Orders Only [facility] MEDICINE [address] [place] [address] Emperatriz Stoll FNP [address] [place] [address] Other chronic pain Social History Tobacco Use [...] Description 02/10/2025 9:00 AM EDT Medication Management [address] [address] Rosa Deluca PharmD [address] [place] [address] 03/03/2025 9:15 AM EDT Office Visit [address] [address] Name, MD Joey [address] [place] [address] 03/16/2025 10:00 AM EDT Clinical Support [address] [address] Remedios Calderon RN documented as of this encounter Procedures Procedure Name Priority Date/Time Associated Diagnosis Comments XR CHEST 2 VIEWS Routine 11/17/2022 4:30 PM EDT documented in this encounter Results * XR Chest 2 Views (11/17/2022 4:30 PM EDT) Anatomical Region Laterality Modality Chest Radiographic Mony ging 11/17/2022 4:30 PM EDT Narrative 11/24/2022 2:21 PM EDT [address] [address] XRay Report Signed Patient: Efrain Dewitt MR#: [id number] : 1960 Acct:[id number] Age/Sex: 61 / M ADM Date: 11/17/22 Loc: HO.HHX Attending Dr: Emperatriz Stoll GEAR LAPPER Ordering Physician: Emperatriz Stoll NP Date of Service: 11/17/22 Procedure(s): XR chest 2V Accession Number(s): [id number] cc: Emperatriz Stoll GEAR LAPPER EXAMINATION: XR CHEST CLINICAL INFORMATION: Bilateral lower [...] signed by Sofya Meza MD in OV> 11/24/228 DD/ 1630 TD/TT: Fabrication Supervisor: DAVID Procedure Note Donotuseinterpreter, Image - 11/29/2022 [facility] [address] [place] [address] XRay Report Signed Patient: Efrain DewittMR#: [id number] : 1960cct:[id number] Age/Sex: 61 / MADM Date: 11/17/22 Loc: HO.HHCX Attending Dr: Emperatriz Stoll GEAR LAPPER Ordering Physician: Emperatriz Stoll NP Date of Service: 11/17/22 Procedure(s): XR chest 2V Accession Number(s): [id number] cc: Emperatriz Stoll GEAR LAPPER EXAMINATION: XR CHEST CLINICAL INFORMATION: Bilateral lower [...] in OV> 11/24/22 1418 DD/ 1630 TD/TT: Fabrication Supervisor: DAVID [facility] External Provider IMG XR PROCEDURES Final Result documented in this encounter Visit Diagnoses Diagnosis Other chronic pain documented in this encounter Additional Health Concerns Assessment Noted Time PHQ-9 Depression Total Score: 7 07/19/19 23 3:07 PM EST documented as of this encounter Care Teams Head Girls Golf Coach Relationship Specialty Start Date End Date Emperatriz Stoll FNP [address] [place] [address] PCP - General Family Medicine 07/19/22 02/05/24 Name, MD Joey [address] [place] [address] PCP - General Internal Medicine 02/06/24 Rosa Deluca, DamionD [address] [place] [address] Pharmacist Internal Medicine 12/03/23 documented as of this encounter
--- OUTSIDE RECORDS SUMMARY | 2025-01-28 10:19 | XMS_ITS | Encounter Summary ---
Author Organization [employer] Address [address] [place] [address] 7t [place] [address] Care Team Providers Care Tube Machine Operator Helper Name Role Phone Rosa Deluca PharmD Unavailable [phone] Name, Joey MERINO Primary Care Provider [phone] Reason for Visit * Reason Comments Med Refill Encounter Details Date Type Department Care Team ([facility] st Contact Info) Description 12/09/2024 Refill [facility] MEDICINE [address] [place] [address] Lindsay Toscano MD [address] [place] [address] Social History Tobacco Use Types Packs/Day Years [...] your housing situation today? I have nga atpia 02/28/[address] you li [...] Description 02/10/2025 9:00 AM EDT Medication Management [address] [address] Rosa Deluca, PharmD [address] [place] [address] 03/03/2025 9:15 AM EDT Office Visit [address] [address] Name, MD Joey [address] [place] [address] 03/16/2025 10:00 AM EDT Clinical Support [address] [address] Remedios Calderon RN documented as of this [...] documented as of this encounter Care Teams Tube Machine Operator Helper Relationship Specialty Start Date End Date Name, MD Joey [address] [place] [address] PCP - General Internal Medicine 02/06/24 Rosa Deluca, Martha [address] [place] [address] Pharmacist Internal Medicine 12/03/23 documented as of this encounter
--- OUTSIDE RECORDS SUMMARY | 2025-01-28 10:19 | XMS_ITS | Encounter Summary ---
Author Organization [employer] Address [address] [facility] [address] 7t [place] [address] Care Team Providers Care Recreation Leader Name Role Phone Emperatriz Stoll Primary Care Provider [phone] Rosa Deluca PharmD Unavailable [phone] Name, Joey MERINO Primary Care Provider [phone] Reason for Visit * Reason Comments Med Refill Encounter Details Date Type Department Care Team ([facility] st Contact Info) Description 05/01/2023 Refill [facility] MEDICINE [address] [place] [address] Emperatriz Stoll FNP [address] [place] [address] Primary hypertension Social History Tobacco Use Types [...] Description 02/10/2025 9:00 AM EDT Medication Management [address] [address] Rosa Deluca, PharmD [address] [place] [address] 03/03/2025 9:15 AM EDT Office Visit [address] [address] Name, MD Joey [address] [place] [address] 03/16/2025 10:00 AM EDT Clinical Support [address] [address] Remedios Calderon, KYLER documented as of this [...] documented as of this encounter Care Teams Recreation Leader Relationship Specialty Start Date End Date Emperatriz Stoll FNP [address] [place] [address] PCP - General Family Medicine 07/19/22 02/05/24 Name, MD Joey [address] [place] [address] PCP - General Internal Medicine 02/06/24 Rosa Deluca, Martha [address] [place] [address] Pharmacist Internal Medicine 12/03/23 documented as of this encounter
--- OUTSIDE RECORDS SUMMARY | 2025-01-28 10:20 | XMS_ITS | Encounter Summary ---
Author Organization [employer] Address [address] [facility] [address] 7t [place] [address] Care Team Providers Care Sonar Technician Name Role Phone Emperatriz Stoll Primary Care Provider +8 Rosa Deluca PharmD Unavailable [phone] Name, Joey MERINO Primary Care Provider [phone] Reason for Visit * Reason Comments Med Refill Encounter Details Date Type Department Care Team ([facility] st Contact Info) Description 2023 Refill [facility] MEDICINE [address] [place] [address] Emperatriz Stoll FNP [address] [place] [address] Social History Tobacco Use Types Packs/Day Years [...] Description 02/10/2025 9:00 AM EDT Medication Management [address] [address] Rosa Deluca, PharmD [address] [place] [address] 03/03/2025 9:15 AM EDT Office Visit [address] [address] Name, MD Joey [address] [place] [address] 03/16/2025 10:00 AM EDT Clinical Support [address] [address] Remedios Calderon, RN documented as of this encounter Goals [...] documented as of this encounter Care Teams Sonar Technician Relationship Specialty Start Date End Date Emperatriz Stoll FNP [address] [place] [address] PCP - General Family Medicine 07/19/22 02/05/24 Name, MD Joey [address] [place] [address] PCP - General Internal Medicine 02/06/24 Rosa Deluca, Martha [address] [place] [address] Pharmacist Internal Medicine 12/03/23 documented as of this encounter
--- OUTSIDE RECORDS SUMMARY | 2025-01-28 10:20 | XMS_ITS | Encounter Summary ---
Author Organization [email or web address] Address [address] [facility] [address] 7t [place] [address] Care Team Providers Care Safety Lead Name Role Phone Emperatriz Stoll Primary Care Provider +[phone] Rosa Deluca PharmD Unavailable [phone] Name, Joey MERINO Primary Care Provider [phone] Reason for Visit * Reason Onset Date Comments Med Refill 08/30/2023 Encounter Details Date Type Department Care Team ([facility] st Contact Info) Description 08/30/2023 Telephone [facility] MEDICINE [address] [place], [place] [phone] Emperatriz Stoll FNP [address] [place] [address] Med Refill Social History Tobacco Use Types [...] 50 MG tablet To be sent to: [facility] - [address] documented in this encounter Plan of Treatment Upcoming Encounters Date Type Department Care Team ([facility] st Contact Info) Description 02/10/2025 9:00 AM EDT Medication Management [address] [address] Rosa Deluca, PharmD [address] [place] [address] 03/03/2025 9:15 AM EDT Office Visit [address] [address] Name, MD Joey [address] [place] [address] 03/16/2025 10:00 AM EDT Clinical Support [address] [address] Remedios Calderon, RN documented as of this [...] as of this encounter Care Teams Safety Lead Relationship Specialty Start Date End Date Emperatriz Stoll FNP [address] [place] [address] PCP - General Family Medicine 07/19/22 02/05/24 Name, MD Joey [address] [place] [address] PCP - General Internal Medicine 02/06/24 Rosa Deluca, DamionD [address] [place] [address] Pharmacist Internal Medicine 12/03/23 documented as of this encounter
--- OUTSIDE RECORDS SUMMARY | 2025-01-28 10:20 | XMS_ITS | Encounter Summary ---
Author Organization [facility] Address [address] [place] [address] Phone Care Team Providers Care Hydrometeorology Teacher Name Role Phone Name, Joey MERINO Primary Care Provider [phone] Encounter Details Date Type Department Care Team (Late st Contact Info) Description 08/09/2022 Telephone [facility] [address] [facility] [address] [place] [address] Patricia Deras Social History Tobacco [...] [facility] [address] [phone] Kevin Gates MD [address] [phone] documented as of this encounter Visit Diagnoses Not on filedocumented in this encounter Care Teams Hydrometeorology Teacher Relationship Specialty Start Date End Date Name, MD Joey [address] [place] [address] PCP - General Internal Medicine 07/16/24 documented as of this encounter
--- OUTSIDE RECORDS SUMMARY | 2025-01-28 10:20 | XMS_ITS | Clinical Summary ---
Author Organization [facility] Address [address] [place] [address] Phone Care Team Providers Care Small Business Director Name Role Phone Name, Joey MERINO Primary Care Provider Allergies No known active allergies Medications carvedilol (COREG) 12.5 MG tablet Take 12.5 mg by mouth in the morning and 12.5 mg in the evening. 07/19/19 23 Active Dapagliflozin Propanediol (Farxiga) 10 MG tablet Take 10 mg by mouth daily 07/19/19 23 Active Ventolin HFA 108 (90 [...] UNITS SUBCUTANEOUSLY AT BEDTIME 10/27/19 23 Active Kerendia 10 MG tablet TAKE 1 TABLET BY MOUTH EVERY MORNING 90 tablet 2 05/19/20 24 Active Ascorbic Acid (vitamin C) 500 MG tablet Take 500 mg by mouth 1 (one) time each day Active Semaglutide (OZEMPIC, 0.25 OR 0.5 MG/DOSE, SC) Inject under the skin Active ezetimibe (ZETIA) 10 MG tablet Take 10 mg by mouth 1 (one) time each day Active clopidogrel (PLAVIX) 75 MG tablet Take 75 mg by mouth 1 (one) time each day Active traMADol (ULTRAM) 50 MG tablet Take 50 mg by mouth every 6 (six) hours if needed for moderate pain Active tamsulosin (FLOMAX) 0.4 MG 24 hr capsule Take 0.4 mg by mouth 1 (one) time each day Active ferrous sulfate 325 (65 Fe) MG tablet Take 325 mg by mouth 1 (one) time each day with breakfast Active Active Problems Problem Noted Date Diagnosed Date Chronic kidney disease, stage 4 (severe) 025 Hyperkalemia 07/16/2024 Chronic kidney disease, stage 4 [...] Encounters Date Type Department Care Team Description 01/06/2025 Orders Only [facility] [address] [address] Kevin Gates MD 12/28/2024 Orders Only [facility] [address] [address] Patricia Fulton ARNP Chronic kidney disease, stage 4 (severe) (HCC); Hypertension; Renal osteodystrophy; Hyperkalemia 12/15/2024 1:00 PM EDT Office Visit [facility] [address] [address] Kevin Gates MD Chronic kidney disease, stage 4 (severe) (HCC) (Primary Dx); Type 2 diabetes mellitus with diabetic chronic kidney disease (HCC); Renal osteodystrophy 11/02/2024 Orders Only [facility] [address] [address] Patricia Fulton ARNP Stage 3b chronic kidney disease (HCC); Hypertension; Hyperkalemia from Last 3 Months Immunizations Immunization Administration Dates Next Due Pfizer SARS-COV-2 05/18/2021 Pfizer SARS-CoV-2 Bivalent 30 mcg/0.3 mL 023 SARS-CoV-2, Unspecified 10/06/2020 Family History Relation Status Comments Father Alive Mother Alive Social History Tobacco Use Types Packs/Day Years [...] Sign Reading Time Taken Comments Blood Pressure 134/70 12/15/2024 1:11 PM EDT Pulse 88 12/15/2024 1:11 PM EDT Temperature - - Respiratory Rate - - Oxygen Saturation 99% 12/15/2024 1:11 PM EDT Inhaled Oxygen Concentration - - Weight 78.3 kg (172 lb 9.6 oz) 12/15/2024 1:11 P M EDT Height - - Body Mass Index - - Plan of Treatment Upcoming Encounters Date Type Department Care Team (Late st Contact Info) Description 03/24/2025 1:30 PM EDT Office Visit [facility] [address] [address] Kevin Gates MD [address] [address] Health Maintenance Due Date Last Done Comments Colorectal Cancer Screening: Annual FOBT 2009 Colorectal Cancer Screening: Colonoscopy 2009 Colorectal Cancer Screening: Sigmoidoscopy 2009 Diabetes: Ophthalmology Exam 07/31/2022 Diabetes: Pedal Pulse Checked 07/31/2022 Diabetes: Sensory Foot Exam 07/31/2022 Diabetes: Visual Foot Exam 07/31/2022 Hepatitis B Vaccine (3 of 3 - 19+ 3-dose series) 08/19/2024 06/24/2024, 01/01/2024 Influenza Vaccine (#1) 2025 08/06/2024 Diabetes: Hemoglobin A1C 02/07/2025 025, 07/14/2024, 05/12/2024, Additional history exists Pneumococcal Vaccine: 50+ Years Completed Pneumococcal Vaccine: Peds ( 0 to 5 Years) and At-Risk Patients (6 to 49 Years) Discontinued 01/07/2024 Procedures Procedure Name Priority Date/Time Associated Diagnosis Comments ALBUMIN, URINE, RANDOM Routine 01/06/2025 9:35 AM EDT URINALYSIS WITH MICROSCOPIC Routine 01/06/2025 9:35 AM EDT Chronic kidney disease, stage 4 (severe) (HCC) Type 2 diabetes mellitus with diabetic chronic kidney disease (HCC) Renal osteodystrophy PROTEIN / CREATININE RATIO, URINE Routine 01/06/2025 9:35 AM EDT Chronic kidney disease, stage 4 (severe) (HCC) Hypertension Renal osteodystrophy Hyperkalemia PTH, INTACT (HC) Routine 01/06/2025 8:59 AM EDT CREATININE, BLOOD Routine 01/06/2025 8:5 9 AM EDT BUN Routine 01/06/2025 8:59 AM EDT ELECTROLYTE PANEL Routine 01/06/2025 8:5 9 AM EDT CBC AND DIFFERENTIAL Routine 01/06/2025 8:59 AM EDT CALCIUM Routine 01/06/2025 8:59 AM EDT Chronic kidney disease, stage 4 (severe) (HCC) Type 2 diabetes mellitus with diabetic chronic kidney disease (HCC) Renal osteodystrophy ALBUMIN Routine 01/06/2025 8:59 AM EDT Chronic kidney disease, stage 4 (severe) (HCC) Type 2 diabetes mellitus with diabetic chronic kidney disease (HCC) Renal osteodystrophy MAGNESIUM Routine 01/06/2025 8:59 AM EDT Chronic kidney disease, stage 4 (severe) (HCC) Type 2 diabetes mellitus with diabetic chronic kidney disease (HCC) Renal osteodystrophy PHOSPHATE ( PHOSPHORUS) Routine 01/06/2025 8:59 AM EDT Chronic kidney disease, stage 4 (severe) (HCC) Type 2 diabetes mellitus with diabetic chronic kidney disease (HCC) Renal osteodystrophy VITAMIN D 25 HYDROXY Routine 01/06/2025 8:59 AM EDT Chronic kidney disease, stage 4 (severe) (HCC) Type 2 diabetes mellitus with diabetic chronic kidney disease (HCC) Renal osteodystrophy from Last 3 Months Results * (ABNORMAL) Urine Protein / creatinine ratio (01/06/2025 9:35 AM EDT) Protein Urine Random 22(H) <12 mg/dL See order comments Protein/Creati nine Ratio, Urine 0.22(H) <0.2 See order comments Comment: The spot urine protein:creatinine ratio may increase to 0.3 during normal . Urine specimen (specimen) Urine specimen obtained by clean catch procedure / Unknown 01/06/2025 9:35 AM EDT 01/06/2025 9:35 AM EDT us Patricia Fulton MASOOD LAB URINE ORDERABLES Final Result Performing Organization Address [facility] de Phone Number [place] See order comments [place] [address] * (ABNORMAL) Albumin, urine, random (01/06/2025 9:35 AM EDT) Creatinine, Urine 101.74 mg/dL Se e order comments Urine Microalbumin 50.0 mg/L See order comments Microalbumin/Crea tinine Ratio 49.1(H) <30 ug/mg cr See order comments Comment: Albumin/Creatinine Ratio Reference Ranges: Normal: < 30 ug/mg creatinine Microalbuminuria: 30 - 300 ug/mg creatinine Clinical Albuminuria: > 300 ug/mg creatinine 01/06/2025 9:35 AM EDT 01/06/2025 9:35 AM EDT Kevin Gates MD LAB URINE ORDERABLES Final Re sult Performing Organization Address [facility] de Phone Number [place] See order comments [place] [address] * (ABNORMAL) Urinalysis with microscopic (01/06/2025 9:35 AM EDT) Color Urine Yellow See orde r comments Appearance Urine Clear See order comments pH Urine 6.0 5.0 - 9.0 See order comments Glucose Urine >=1000(A) Negative mg/dL See order comments Blood, Urine Negative Negative See ord er comments Specific [place] Urine 1.025 1.005 - 1.025 See order comments Protein Urine 30 (1+)(A) Neg-Trace mg/dL See order comments Ketones, Urine Negative Negative mg/dL See order comments Nitrite, Urine Negative Negative See o rder comments Leukocyte Esterase Urine Negative Negative See order comments RBC, Urine 0-2 0 - 2 /HPF See orde r comments WBC 0-5 0 - 5 /HPF See order comments Squamous Epithelial, Urine 0-2 0 - 2 /HPF See order comments Bacteria, Urine None Seen None Seen See order comments Hyaline Casts, Urine 0-2 0 - 2 /LPF See order comments Urine Urine specimen obtained by clean catch procedure / Unknown 01/06/2025 9:35 AM EDT 01/06/2025 9:35 AM EDT us Kevin Gates MD LAB URINE ORDERABLES Final Re sult Performing Organization Address [facility] Co de Phone Number [place] See order comments [place] [address] * (ABNORMAL) Creatinine (01/06/2025 8:59 AM EDT) Creatinine Serum 2.35(H) 0.5 - 1.4 mg/dL See order comments eGFR (Calc) 28 See orde r comments Comment: Chronic Kidney Disease: Estimated GFR < 60 mL/min/1.73m2 Severe Kidney Disease: Estimated GFR < 15 mL/min/1.73m2 01/06/2025 8:59 AM EDT 01/06/2025 8:59 AM EDT us Kevin Gates MD LAB BLOOD ORDERABLES Final Re sult Performing Organization Address [facility] Co de Phone Number [place] See order comments [place] [address] * (ABNORMAL) PTH, Intact (01/06/2025 8:59 AM EDT) Parathyroid Hormone, Intact 115.3(H) 8.7 - 77.1 pg/mL See order comments 01/06/2025 8:59 AM EDT 01/06/2025 8:59 AM EDT us Kevin Gates MD LAB [id number] SOLICITED RESULTS Final Result Performing Organization Address [facility] Co de Phone Number [place] See order comments [place] [address] * (ABNORMAL) Vitamin D 25 Hydroxy (01/06/2025 8:59 AM EDT) Vitamin D, 25-Hydroxy 28.5(L) >30 ng/mL See order comments Comment: Health Based Reference Values* < 20 ng/mL Deficient 20-30 ng/mL Insufficient > 30 ng/mL Sufficient *Qamar SORIANO. N Engl J Med. 2007;357:266-280 There is no well-established upper level of normal vitamin D levels. Some laboratories use 50 ng/mL as an upper limit of normal. However, toxicity is patient-dependent and may occur at any level. Careful correlation with the patient's presentation is necessary and, if there is concern for vitamin D toxicity, treatment should be considered irrespective of the serum level. Care must be taken in interpreting Vitamin D results from different laboratories and methodologies. Published data demonstrated that results from patients undergoing hemodialysis may show a negative bias when tested with various automated 25-OH vitamin D assays when compared to LC-MS/MS. When testing samples from patients whose predominant form of Vitamin D is Vitamin D2, such as patients receiving Vitamin D2 supplementation, results that are subtherapeutic should be confirmed with another method such as LC-MS/MS. Blood Venous blood / Unknown 01/06/2025 8:59 AM EDT 01/06/2025 8:59 AM EDT us Kevin Gates MD LAB BLOOD ORDERABLES Final Re sult [place] See order comments [place] [address] * (ABNORMAL) CBC and Differential (01/06/2025 8:59 AM EDT) WBC 6.5 4.8 - 10.8 X10*3/uL See order comments RBC 4.31(L) 4.60 - 5.80 X10*6/uL See order comments Hgb 12.5(L) 14.0 - 18.0 g/dl See order comments Hematocrit 39.1(L) 42.0 - 52.0 % See order comments MCV 90.7 80.0 - 98.0 fL See order comments MCH 29.0 27.0 - 33.0 pg See order comments MCHC 32.0 31.0 - 36.0 g/dl See order comments RDW 15.3 11.0 - 16.0 % See order comments Platelets 281 160 - 400 X10*3/uL See order comments MPV 10.1 9.4 - 12.4 fL See order comments Neutrophils % Auto 61.7 45 - 73 % See order comments Immature Granulocytes 0.2 0.0 - 0.4 % See order comments Lymphocytes Relative 27.1 20 - 40 % See order comments Monocytes 7.9 2 - 11 % See order comments Eosinophils Relative 2.3 0 - 4 % See order comments Basophils Relative 0.8 0 - 2 % See order comments nRBC Count 0.0 0.0 - 0.2 /100WBC See order comments Neutrophils Absolute 4.0 2.0 - 8.3 x10*3/uL See order comments Immature Grans (Absolute) 0.01 0.00 - 0.03 X10*3/uL See order comments Lymphocytes Absolute 1.8 1.2 - 4.9 X10*3/uL See order comments Monocytes Absolute 0.5 0.1 - 1.2 X10*3/uL See order comments Eosinophils Absolute 0.2 0.0 - 0.4 X10*3/uL See order comments Basophils Absolute 0.1 0.0 - 0.2 X10*3/uL See order comments NRBC Absolute 0.000 0.0 - 0.012 X10*3/uL See order comments 01/06/2025 8:59 AM EDT 01/06/2025 8:59 AM EDT Kevin Gates MD LAB BLOOD ORDERABLES Final Re sult Performing Organization Address City/State/[facility] Co de Phone Number [place] See order comments [place] [address] * (ABNORMAL) BUN (01/06/2025 8:59 AM EDT) BUN 33(H) 9 - 16 mg/dL See order comments 01/06/2025 8:59 AM EDT 01/06/2025 8:59 AM EDT Kevin Gates MD LAB BLOOD ORDERABLES Final Re sult [place] See order comments [place] [address] * Phosphorus (01/06/2025 8:59 AM EDT) Phosphorus, Serum 3.4 2.7 - 4.5 mg/dL See order comments Blood Venous blood / Unknown 01/06/2025 8:59 AM EDT 01/06/2025 8:59 AM EDT us Kevin Gates MD LAB BLOOD ORDERABLES Final Re sult Performing Organization Address [facility] de Phone Number [place] See order comments [place] [address] * Magnesium (01/06/2025 8:59 AM EDT) Magnesium 2.2 1.6 - 2.6 mg/dL See order comments Blood Venous blood / Unknown 01/06/2025 8:59 AM EDT 01/06/2025 8:59 AM EDT us Kevin Gates MD LAB BLOOD ORDERABLES Final Re sult Performing Organization Address [facility] de Phone Number [place] See order comments [place] [address] * Calcium (01/06/2025 8:59 AM EDT) Calcium 9.0 8.4 - 10.2 mg/dL See order comments Blood Venous blood / Unknown 01/06/2025 8:59 AM EDT 01/06/2025 8:59 AM EDT us Kevin Gates MD LAB BLOOD ORDERABLES Final Re sult Performing Organization Address [facility] de Phone Number [place] See order comments [place] [address] * Albumin (01/06/2025 8:59 AM EDT) Albumin 4.3 3.5 - 5.0 g/dL See order comments Blood Venous blood / Unknown 01/06/2025 8:59 AM EDT 01/06/2025 8:59 AM EDT us Kevin Gates MD LAB BLOOD ORDERABLES Final Re sult [place] See order comments [place] [address] * (ABNORMAL) Electrolyte panel (01/06/2025 8:59 AM EDT) Sodium 145 135 - 145 mmol/L See order comments Potassium 4.6 3.3 - 5.1 mmol/L See order comments Chloride 109(H) 96 - 108 mmol/L See order comments Bicarbonate (CO2) 29 22 - 29 mmol/L See order comments Anion Gap 12 12 - 20 See order comments 01/06/2025 8:59 AM EDT 01/06/2025 8:59 AM EDT Kevin Gates MD LAB BLOOD ORDERABLES Final Re sult [place] See order comments [place] [address] from Last 3 Months Insurance [address] [place] [address] [facility] One Care Dual SNP ([id number]) [place] [id number] [facility] One [employer] Dual SNP ([id number]) [place] [phone] Care Teams Small Business Director Relationship Specialty Start Date End Date Name, MD Joey [address] [place] [address] PCP - General Internal Medicine 07/16/24
[2025-01-28 11:02] LABS: Hemoglobin A1C 218.5529 umol/L; Total Hemoglobin (HGBA1C) 4330.2112 umol/L
[2025-01-28 11:33] LABS: Prostate Specific Antigen 2.49 ng/mL (<0.05-4.0)
== END 2025-01-28 09:39 | disposition home or self-care (01) ==
LOC: HO.LAB 09:38
PROVIDERS: PCP Internal Medicine Geriatric Medicine; Visit Provider Nurse Practitioner Family
DX: E11.69 Type 2 diabetes mellitus with other specified complication (principal); N52.1 Erectile dysfunction due to diseases classified elsewhere; Z12.5 Encounter for screening for malignant neoplasm of prostate
CPT/HCPCS: 36415; 83036; 84153

== ENCOUNTER 2025-02-04 07:46 | Outpatient (AMB) | payer OTHER, SELFPAY ==
--- OUTSIDE RECORDS SUMMARY | 2025-02-04 07:51 | XMS_ITS | Encounter Summary ---
Author Organization [employer] Address [address] 7[address] [place] [address] Care Team Providers Care Nursing Coordinator Name Role Phone Rosa Deluca PharmD Unavailable [phone] NameJoey MD Primary Care Provider [phone] Reason for Visit * Reason Comments Med Refill Encounter Details Date Type Department Care Team ([facility] st Contact Info) Description 12/09/2024 Refill [facility] [address] [place], [place] [id number] Name, MD Joey [address] [place] [address] Social History Tobacco Use Types Packs/Day Years [...] Description 02/10/2025 9:00 AM EDT Medication Management [address] [address] Rosa Deluca, PharmD [address] [place] [address] 03/03/2025 9:15 AM EDT Office Visit [address] [address] Name, MD Joey [address] [place] [address] 03/16/2025 10:00 AM EDT Clinical Support [address] [address] Remedios Calderon RN documented as of this encounter Goals Goal Patient Goal Type Associated Problems Recent Progress Patient-Stated? Author Blood Pressure < 140/90 Blood Pressure 120/68(2024 9:08 AM EDT) No Donald Johnson Hemoglobin A1c < 7.5 Result Component 6.8( 10:16 AM EDT) No Donald Johnson documented as of this encounter Visit Diagnoses Not on filedocumented in this encounter Additional Health Concerns Assessment Noted Time PHQ-9 Depression Total Score: 8 06/06/19 25 11:44 AM EST documented as of this encounter Care Teams Nursing Coordinator Relationship Specialty Start Date End Date Name, MD Joey [address] [place] [address] PCP - General Internal Medicine 02/06/24 Rosa Deluca, Martha [address] [place] [address] Pharmacist Internal Medicine 12/03/23 documented as of this encounter
--- OUTSIDE RECORDS SUMMARY | 2025-02-04 07:52 | XMS_ITS | Encounter Summary ---
Author Organization [employer] Address [address] [place] [address] Care Team Providers Care Petroleum Geology Faculty Member Name Role Phone Emperatriz Stoll Primary Care Provider [phone] Rosa Deluca PharmD Unavailable [phone] Name, Joey MERINO Primary Care Provider [phone] Reason for Visit * Reason Comments Med Refill Encounter Details Date Type Department Care Team ([facility] st Contact Info) Description 05/01/2023 Refill [facility] [address] [place] [address] Emperatriz Stoll FNP [address] [place] [address] Primary hypertension Social History Tobacco Use Types [...] Description 02/10/2025 9:00 AM EDT Medication Management [address] [address] Rosa Deluca, PharmD [address] [place] [address] 03/03/2025 9:15 AM EDT Office Visit [address] [address] Name, MD Joey [address] [place] [address] 03/16/2025 10:00 AM EDT Clinical Support [address] [address] Remedios Calderon, KYLER documented as of this encounter Goals Goal Patient Goal Type Associated Problems Recent Progress Patient-Stated? Author Blood Pressure < 140/90 Blood Pressure 120/68(2024 9:08 AM EDT) No Donald Johnsno Hemoglobin A1c < 7.5 Result Component 6.8( 10:16 AM EDT) No Donald Johnson documented as of this encounter Visit Diagnoses Diagnosis Primary hypertension Unspecified essential hypertension documented in this encounter Additional Health Concerns Assessment Noted Time PHQ-9 Depression Total Score: 0 12/14/19 23 11:09 AM EDT documented as of this encounter Care Teams Petroleum Geology Faculty Member Relationship Specialty Start Date End Date Emperatriz Stoll FNP [address] [place] [address] PCP - General Family Medicine 07/19/22 02/05/24 Name, MD Joey [address] [place] [address] PCP - General Internal Medicine 02/06/24 Rosa Deluca, Martha [address] [place] [address] Pharmacist Internal Medicine 12/03/23 documented as of this encounter
--- OUTSIDE RECORDS SUMMARY | 2025-02-04 07:52 | XMS_ITS | Encounter Summary ---
Author Organization [employer] Address [address] [place] [address] 7t [place] [address] Care Team Providers Care Gluing Machine Operator Automatic Name Role Phone Rosa Deluca PharmD Unavailable [phone] Name, Joey MERINO Primary Care Provider [phone] Encounter Details Date Type Department Care Team ([facility] st Contact Info) Description 12/09/2024 Refill [facility] [address] [place] [address] Lindsay Toscano MD [address] [place] [address] Social History Tobacco Use Types Packs/Day Years [...] Description 02/10/2025 9:00 AM EDT Medication Management [address] [address] Rosa Deluca, DamionD [address] [place] [address] 03/03/2025 9:15 AM EDT Office Visit [address] [address] Name, MD Joey [address] [place] [address] 03/16/2025 10:00 AM EDT Clinical Support [address] [address] Remedios Calderon, KYLER documented as of this [...] documented as of this encounter Care Teams Gluing Machine Operator Automatic Relationship Specialty Start Date End Date Name, MD Joey [address] [place] [address] PCP - General Internal Medicine 02/06/24 Rosa Deluca, Martha [address] [place] [address] Pharmacist Internal Medicine 12/03/23 documented as of this encounter
--- OUTSIDE RECORDS SUMMARY | 2025-02-04 07:52 | XMS_ITS | Encounter Summary ---
Author Organization [employer] Address [address] [place] [address] Care Team Providers Care Wood Inspector Name Role Phone Emperatriz Stoll Primary Care Provider + Rosa Deluca PharmD Unavailable [phone] Name, Joey MERINO Primary Care Provider [phone] Encounter Details Date Type Department Care Team (Late st Contact Info) Description 04/06/2023 Orders Only [facility] [address] [place] [address] Emperatriz Stoll FNP [address] [place] [address] Social History Tobacco Use Types Packs/Day Years [...] Description 02/10/2025 9:00 AM EDT Medication Management [address] [address] Rosa Deluca, PharmD [address] [place] [address] 03/03/2025 9:15 AM EDT Office Visit [address] [address] Name, MD Joey [address] [place] [address] 03/16/2025 10:00 AM EDT Clinical Support [address] [address] Remedios Calderon, KYLER documented as of this [...] documented as of this encounter Care Teams Wood Inspector Relationship Specialty Start Date End Date [place], Emperatriz, MILL RECORDER [address] [place] [address] PCP - General Family Medicine 07/19/22 02/05/24 Name, MD Joey [address] [place] [address] PCP - General Internal Medicine 02/06/24 Rosa Deluca, DamionD [address] [place] [address] Pharmacist Internal Medicine 12/03/23 documented as of this encounter
--- OUTSIDE RECORDS SUMMARY | 2025-02-04 07:52 | XMS_ITS | Encounter Summary ---
Author Organization [employer] Address [address] 7[address] [place] [address] Care Team Providers Care Director Of Teaching And Learning Name Role Phone Emperatriz Stoll Primary Care Provider [phone] Rosa Deluca PharmD Unavailable [phone] Name, Joey MERINO Primary Care Provider [phone] Reason for Visit * Reason Comments Med Refill Encounter Details Date Type Department Care Team (Late st Contact Info) Description 01/12/[address] [facility] [address] [place] [address] Emperatriz Stoll FNP [address] [place] [address] Other chronic pain Social History Tobacco Use [...] Description 02/10/2025 9:00 AM EDT Medication Management [address] [address] Rosa Deluca PharmD [address] [place] [address] 03/03/2025 9:15 AM EDT Office Visit [address] [address] Joey Barreto MD [address] [place] [address] 03/16/2025 10:00 AM EDT Clinical Support [address] [address] Remedios Calderon, KYLER documented as of this encounter Visit Diagnoses Diagnosis Other chronic pain documented in this encounter Additional Health Concerns Assessment Noted Time PHQ-9 Depression Total Score: 0 12/14/19 11:09 AM EDT documented as of this encounter Care Teams Director Of Teaching And Learning Relationship Specialty Start Date End Date Emperatriz Stoll FNP [address] [place] [address] PCP - General Family Medicine 07/19/22 02/05/24 Joey Barreto MD [address] [place] [address] PCP - General Internal Medicine 02/06/24 Rosa Deluca PharmD [address] [place] [address] Pharmacist Internal Medicine 12/03/23 documented as of this encounter
--- OUTSIDE RECORDS SUMMARY | 2025-02-04 07:52 | XMS_ITS | Encounter Summary ---
Author Organization [facility] [employer] Address [address] [place] [address] 7t [place] [address] Care Team Providers Care Supervisor Alteration Workroom Name Role Phone Rosa Deluca PharmD Unavailable [phone] Name, Joey MERINO Primary Care Provider [phone] Reason for Visit * Reason Comments Med Refill Encounter Details Date Type Department Care Team ([facility] st Contact Info) Description 12/09/2024 Refill [facility] [address] [place] [address] Lindsay Toscano MD [address] [place] [address] Social History Tobacco Use Types Packs/Day Years [...] Description 02/10/2025 9:00 AM EDT Medication Management [address] [address] Rosa Deluca, PharmD [address] [place] [address] 03/03/2025 9:15 AM EDT Office Visit [address] [address] Name, MD Joey [address] [place] [address] 03/16/2025 10:00 AM EDT Clinical Support [address] [address] Remedios Calderon RN documented as of this [...] as of this encounter Care Teams Supervisor Alteration Workroom Relationship Specialty Start Date End Date Name, MD Joey [address] [place] [address] PCP - General Internal Medicine 02/06/24 Rosa Deluca, Martha [address] [place] [address] Pharmacist Internal Medicine 12/03/23 documented as of this encounter
--- OUTSIDE RECORDS SUMMARY | 2025-02-04 07:53 | XMS_ITS | Patient Health Record ---
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) Active confirmed Problem Mild recurrent major depression (20907957) Major depressive disorder, recurrent, mild (F33.0) Active confirmed Problem Idiopathic periphera l autonomic neuropathy (34388211) Other idiopathic peripheral autonomic neuropathy (G90.09) Active confirmed Problem Chronic systolic hea rt failure (819835183) Chronic systolic (congestive) heart failure (I50.22) Active confirmed Problem Chronic kidney disea se stage 4 (326850281) Chronic kidney disease, stage 4 (severe) (N18.4) Active confirmed Problem Pure hypercholesterolemia (825310292) Pure hypercholester olemia, unspecified (E78.00) Active confirmed Problem Essential hypertensi on (14719339) Essential hypertension (I10) Active confirmed Plan Of Treatment Pending Test Test Name Order Date ESOPHAGOGASTRODUODENOSCOPY 12/12/2019 COLONOSCOPY AND BIOPSY 12/12/2019 COVID -19 Testing 12/12/2019 Insurance Providers Payer Name Payer Address Payer Phone Subscriber Number Group Number Insured Name Patient Relationship to Insured Coverage Start Date Coverage End Date [employer] [address] [address] [place] [address] [id number] ELAINE FLEMING Self - patient is the [...]
--- OUTSIDE RECORDS SUMMARY | 2025-02-04 07:53 | XMS_ITS | Encounter Summary ---
Author Organization [facility] [facility] Address [address] 7[address] [place] [address] Care Team Providers Care Mold Yarn Supervisor Name Role Phone Emperatriz Stoll Primary Care Provider [phone] Rosa Deluca PharmD Unavailable [phone] Name, Joey MERINO Primary Care Provider [phone] Encounter Details Date Type Department Care Team ([facility] Contact Info) Description 10/20/2022 Orders Only [facility] [address] [place] [address] Emperatriz Stoll FNP [address] [place] [address] Other chronic pain Social History Tobacco Use [...] Description 02/10/2025 9:00 AM EDT Medication Management [address] [address] Rosa Deluca PharmD [address] [place] [address] 03/03/2025 9:15 AM EDT Office Visit [address] [address] Name, MD Joey [address] [place] [address] 03/16/2025 10:00 AM EDT Clinical Support [address] [phone] Remedios Calderon RN documented as of this encounter Procedures Procedure Name Priority Date/Time Associated Diagnosis Comments XR CHEST 2 VIEWS Routine 11/17/2022 4:30 PM EDT documented in this encounter Results * XR Chest 2 Views (11/17/2022 4:30 PM EDT) Anatomical Region Laterality Modality Chest Radiographic Mony ging 11/17/2022 4:30 PM EDT Narrative 11/24/2022 2:21 PM EDT [address] [address] XRay Report Signed Patient: Efrain Dewitt MR#: [id number] : 1960 Acct:[id number] Age/Sex: 61 / M ADM Date: 11/17/22 Loc: HO.HHX Attending Dr: Emperatriz Stoll REIMBURSEMENT DIRECTOR Ordering Physician: Emperatriz Stoll NP Date of Service: 11/17/22 Procedure(s): XR chest 2V Accession Number(s): [id number] cc: Emperatriz Stoll REIMBURSEMENT DIRECTOR EXAMINATION: XR CHEST CLINICAL INFORMATION: Bilateral lower [...] MD in OV> 11/24/228 DD/ 1630 TD/TT: Police Chief: DAVID Procedure Note Donotuseinterpreter, Image - 11/29/2022 [facility] [address] [place] [address] XRay Report Signed Patient: Efrain DewittMR#: [id number] : 1960cct:[id number] Age/Sex: 61 / MADM Date: 11/17/22 Loc: HO.HHCX Attending Dr: Emperatriz Stoll REIMBURSEMENT DIRECTOR Ordering Physician: Emperatriz Stoll NP Date of Service: 11/17/22 Procedure(s): XR chest 2V Accession Number(s): [id number] cc: Emperatriz Stoll REIMBURSEMENT DIRECTOR EXAMINATION: XR CHEST CLINICAL INFORMATION: Bilateral lower [...] in OV> 11/24/22 1418 DD/ 1630 TD/TT: Police Chief: DAVID [facility] External Provider IMG XR PROCEDURES Final Result documented in this encounter Visit Diagnoses Diagnosis Other chronic pain documented in this encounter Additional Health Concerns Assessment Noted Time PHQ-9 Depression Total Score: 7 07/19/19 23 3:07 PM EST documented as of this encounter Care Teams Mold Yarn Supervisor Relationship Specialty Start Date End Date Emperatriz Stoll FNP [address] [place] [address] PCP - General Family Medicine 07/19/22 02/05/24 Name, MD Joey [address] [place] [address] PCP - General Internal Medicine 02/06/24 Rosa Deluca, DamionD [address] [place] [address] Pharmacist Internal Medicine 12/03/23 documented as of this encounter
--- OUTSIDE RECORDS SUMMARY | 2025-02-04 07:53 | XMS_ITS | Clinical Summary ---
Author Organization [employer] Address [address] [place] [address] Care Team Providers Care Patient Account Specialist Name Role Phone Rosa Deluca PharmD Unavailable [phone] Name, Joey MERINO Primary Care Provider [phone] Allergies No known active allergies Medications albuterol 108 (90 Base) MCG/ACT inhaler Inhale 2 puffs every 4 (four) hours if needed for wheezing. 18 g 023 Active atorvastatin (Lipitor) 80 MG tablet Take 80 mg by mouth Once per day. 023 Active Farxiga 10 MGIndications:Cont rolled type 2 diabetes mellitus without complication, unspecified whether detention insulin use ([facility]) Take 1 tablet (10 mg) by [...] hyperglycemia, with long-term current use of insulin ([facility]) Chew 4 tablets (16 g) if needed for low blood sugar. 50 tablet 12 025 Active Ozempic, 0.25 or 0.5 MG/DOSE, 2 MG/3ML solution pen-injector 025 Active insulin pen needle (BD Pen Needle Danielle U/F) 32G x 4 mm miscIndications:Co ntrolled type 2 diabetes mellitus with complication, with long-term current use of insulin ([facility]) USE DIRECTED FOR INSULIN ADMINISTRATION ONCE DAILY 100 each 5 025 Active glucose blood (FreeStyle Precision Virgil Test) test stripIndications:T ype 2 diabetes mellitus with hyperglycemia, with long-term current use of insulin ([facility]) Use to test blood sugar every [...] complication, with long-term current use of insulin ([facility]) INJECT 10 UNITS SUBCUTANEOUSLY once daily [...] hyperglycemia, with long-term current use of insulin ([facility]) 1 each every 8 (eight) hours. 2 each Active Lancets 33G miscIndications:Ty pe 2 diabetes mellitus with hyperglycemia, with long-term current use of insulin ([facility]) Use as directed to check blood sugar 3 times daily 100 each 11 Active Vascepa 1 g capsule Take 2 capsules by mouth in the morning and 2 capsules in the evening. 023 01/21 Discontinued( Discontinued by another clinician) Lancets (OneTouch Delica Plus Oejmoa14R) miscIndications:Ty pe 2 diabetes mellitus without complications ([facility]) USE TO TEST BLOOD SUGAR IN THE MORNING 100 each 12 024 01/23 Discontinued( Other) Continuous Glucose Sensor (FreeStyle Sarina 2 Sensor) misc USE DIRECTED AND CHANGE EVERY 14 DAYS 2 each 5 01/21 Discontinued( Other) furosemide (Lasix) 20 MG [...] notification to Pharmacy)) amiodarone (Pacerone) 200 MG tabletIndications: Coronary arteriosclerosis [...] for up to 28 days. 84 tablet 01/06 Discontinued gabapentin (Neurontin) 300 MG capsule [...] of coronary artery bypass graft x 3 2 01/2025 Class 1 obesity 06/24/2024 Advanced periodontitis 04/09/2024 [...] -compressions stockings 20-30 mmHg requested today to [facility] RN -pt has apt w PCP [...] Encounters Date Type Department Care Team Description 01/28/2025 Orders Only GENERIC EXTERNAL DATA DEPARTMENT Provider, Generic External Data 01/21/2025 Telephone [facility] [address] [place] [address] Rosa Deluca, PharmD 01/21/2025 Travel 01/12/2025 Telephone [facility] [address] [place] [address] Joey Barreto MD Prior Auth Prescription (Pt requesting authorization on sensors , pharmacy explained to pt he needs in order to get sensors ) 01/09/2025 Telephone [facility] [address] [place] [address] Joey Barreto MD Prior Authorization 01/08/2025 Refill [facility] [address] [place] [address] Joey Barreto MD 01/06/2025 Refill [facility] [address] [place] [address] Joey Barreto MD Other chronic pain 01/01/2025 Refill [facility] [address] [place] [address] Joey Barreto MD Dietary counseling 12/17/2024 9:00 AM EDT Clinical Support [facility] [address] [place] [address] Remedios Calderon, KYLER Long-term current use of opiate analgesic (Primary Dx) 12/17/2024 Refill [facility] [address] [place] [address] Remedios Calderon, RN Long-term current use of opiate analgesic (Primary Dx) 12/17/2024 Travel 12/09/2024 Refill [facility] [address] [place] [address] Joey Barreto MD 12/09/2024 Refill [facility] [address] [place] [address] Lindsay Toscano MD 12/09/2024 Refill [facility] [address] [place] [address] Joey Barreto MD 12/09/2024 Refill [facility] [address] [place] [address] Lindsay Toscano MD 12/09/2024 Refill [facility] [address] [place], [place] [phone] Joey Barreto MD 12/09/2024 Travel 12/08/2024 Refill [facility] [address] [place], [place] [phone] Joey Barreto MD Other chronic pain 12/08/2024 Telephone [facility] [address] [place] [address] Remedios Calderon RN Error (VOID this visit) 11/30/2024 Refill [facility] [address] [place] [address] Joey Barreto MD Coronary arteriosclerosis 11/21/2024 9:00 AM EDT Office Visit [facility] [address] [place] [address] Joey Barreto MD Controlled type 2 diabetes mellitus with complication, with long-term current use of insulin ([facility]) (Primary Dx); Hypoglycemia; History of coronary artery bypass graft x 3 11/21/2024 Travel 11/19/2024 Telephone [facility] [address] [place] [address] France Mitchell [place] CHARTPREP 11/10/2024 Refill [facility] [address] [place] [address] Joey Barreto MD Presence of coronary angioplasty implant and graft 11/09/2024 Refill [facility] [address] [place] [address] Emperatriz Stoll FNP Presence of coronary angioplasty implant and graft 11/07/2024 Telephone [facility] [address] [place] [address] Rosa Deluca, PharmD 11/07/2024 Travel 11/05/2024 Refill [facility] [address] [place], [place] [phone] Joey Barreto MD Other chronic pain from [...] Description 02/10/2025 9:00 AM EDT Medication Management [address] [address] Rosa Deluca, PharmD [address] [place] [address] 03/03/2025 9:15 AM EDT Office Visit [address] [address] Name, MD Joey [address] [place] [address] 03/16/2025 10:00 AM EDT Clinical Support [address] [address] Remedios Calderon, RN Health Maintenance Due Date [...] 10/15/2024, , 08/08/2022 Anal Pap 05/06/2025 05/06/2024 Lipid Panel 06/02/2025 06/02/2024, 04/04, 08/09/2023, Additional history exists Alcohol/Substance Use Screening 06/06/2025 06/06/2024 Depression Screening 06/06/2025 06/06/2024, 06/06/19 Eye Exam 06/18/2025 06/18/2024, 06/04, 06/18/2024, Additional history exists Diabetes: Hemoglobin A1C 07/31/202501/28/2 025, 11/07/2024, 07/14/2024, Additional history exists Dental X-Ray: Full Mouth 08/09/2025 08/08/2022 Dental X-Ray: Bitewings 10/16/2025 10/16/19 25, 10/16/2023, 08/08/2022 Disability Screening 11/21/2025 11/21/2024 Tobacco [...] 6.8( 10:16 AM EDT) No Donald Johnson Procedures Procedure Name Priority Date/Time Associated Diagnosis Comments PSA, TOTAL Routine 01/28/2025 10:16 AM EDT HEMOGLOBIN A1C Routine 01/28/2025 10:16 AM EDT POCT TRINITY-14 URINE DRUG SCREEN Routine 12/17/2024 9:19 AM EDT Long-term current use of opiate analgesic POCT GLUCOSE Routine 11/21/2024 8:57 AM EDT Controlled type 2 diabetes mellitus with complication, with long-term current use of insulin ([facility]) POCT GLYCATED HEMOGLOBIN, TOTAL Routine 11/07/2024 10:21 AM EDT Type 2 diabetes mellitus with hyperglycemia, with long-term current use of insulin ([facility]) BITEWINGS - 4 RADIOGRAPHIC IMAGES Routine [...] Recently Relevant to Health Maintenance Results * PSA,Total (01/28/2025 10:16 AM EDT) Prostate Specific Antigen 2.49 <0.05 - 4.0 ng/mL [facility] Comment:PSA methodology: Sadie billingsley Alijoety i ChemiluminescentMicroparticle Immunoassay (CMIA) 01/28/2025 10:1 6 AM EDT 01/28/2025 10:16 AM EDT us Generic External Data Provider LAB BLOOD ORDERAB LES Final Result Performing Organization Address City/State/[facility] Co de Phone Number [facility] [address] [place] [phone] * (ABNORMAL) Hemoglobin A1c (01/28/2025 10:16 AM EDT) Hemoglobin A1c 6.8(H) <6.0 % [facility] Comment:Hemoglobin A1C Refer ence Range Adults: 4.8 - 6.0 % Non diabetic: < 6.0 % Goal: < 7.0 %Additional Action Suggested: > 8.0 %Note: Hemoglobin A1c results are invalid for patients with abnormal amounts of HbF. Blood transfusions may impact the HbA1c concentration in the patient sample. Estimated Average Glucose 148 mg/dL [facility] Comment:eAG = Estimated ave rage glucose which is %A1C expressed asaverage glucose, using the formula of the X8S-SemmrwxFzjmxum Glucose study (ADAG), Diabetes Care, Vol.31,#8,2007 01/28/2025 10:1 6 AM EDT 01/28/2025 10:16 AM EDT Generic External Data Provider LAB BLOOD ORDERAB LES Final Result [facility] [address] [place] [phone] * POCT TRINITY-14 Urine Drug Screen (12/17/2024 9:19 AM EDT) Pathologist [facility] THC Negative Negative Cocaine Screen, Urine Negative [...] - 12/17/2024 9:19 AM EDT UTOX cup Lot#[id number] Exp. 03/10/26 Internal Pass Control Joey Barreto MD POINT OF CARE TEST ENTER/EDIT OR DERABLES Final Result * POCT Glucose (11/21/2024 8:57 AM EDT) Pathologist [facility] Glucose Blood, POC 130 60 - 200 mg/dL QC Media Lot # [id number] Lot# Expiration Date Blood Capillary blood specimen / Unknown 11/21/2024 8:57 AM EDT Joey Barreto MD POINT OF CARE TEST ENTER/EDIT OR DERABLES Final Result * (ABNORMAL) POCT A1C (11/07/2024 10:21 AM EDT) Pathologist [facility] Hemoglobin A1C 6.3(A) 4.0 - 6.0 % QC Media Lot # [id number] Lot# Expiration Date [id number] Blood 11/07/2024 10:2 1 AM EDT Joey Barreto MD POINT OF CARE TEST ENTER/EDIT OR DERABLES Final Result * (ABNORMAL) Lipid Panel, Standard (06/02/2024 9:33 AM EST) Triglycerides 68 <150 mg/dL [facility] Comment:Desirable Triglyceri de: less than 150 mg/dLBorderline High Triglyceride 150-199 mg/dLHigh Triglyceride: 200-499 mg/dLVery High Triglyceride: greater than or equal to 5OO mg/dL Cholesterol 91 <200 mg/dL [facility] Comment:Desirable Cholestero l: less than 200 mg/dLBorderline High Cholesterol: 200-239 mg/dLHigh Cholesterol: greater than 239 mg/dL LDL Cholesterol Calculated 55 <100 mg/dL [facility] Comment:Desirable LDL: less than 100 mg/dLNear Optimal/Above Optimal LDL: 110- 129 mg/dLBorderline High LDL: 130-159 mg/dLHigh LDL: 160-189 mg/dLVery High LDL: greater than or equal to 190 mg/dL HDL Cholesterol 23(L) >40 mg/dL [facility] Comment:Desirable HDL: great er than 40 mg/dL Note: This HDL assay may give artificially low results in patients with liver disease. 06/02/2024 9:33 AM EST 06/02/2024 9:33 AM EST us Generic External Data Provider LAB BLOOD ORDERAB LES Final Result [facility] [address] [place], [place] [phone] * Cytopath-cell enhanced (05/06/2024 4:37 PM EST) 05/06/2024 4:37 PM EST 05/07/2024 1:25 PM EST Narrative [facility] - 05/09/2024 9:42 AM EST ----- ------- Name: Efrain Dewitt Age/Sex: 63/M : 1960 Unit#: [id number] Attend Dr: Elmira Mcdonald [facility] Re05/06/24 Status: [facility] Disch: ----- ------- SPEC : [id number] RECD: 05/07/24-1325 STATUS: RYAN MELO NUM: [id number] ARPAN: 05/06/24-163 [facility] DR: Elmira Mcdonald [facility] ENTERED: 05/07/24-1415 SP TYPE: Cytology OT [...] slide is prepared. Copies To: Emperatriz Stoll [employer]Y [employer] [address] [place], [place] [phone] Elmira Mcdonald [facility] [address] [place] [address] [address]. [address] [place], [place] [phone] [email or web address] ----- ------- Signed (signature on file) Jeanmarie Cahvez MD 05/09/24 0942 ----- ------- END OF REPORT Generic External Data Provider LAB DONTA DONG Final Result [facility] [address] [place] [phone] [phone] from Last 3 Months or Most Recently Relevant to Health Maintenance Insurance [facility] CARE < [address] [place] [id number] [facility] STANDARD DENTAL [facility] Care Teams Patient Account Specialist Relationship Specialty Start Date End Date Name, MD Joey [address] [place] [address] PCP - General Internal Medicine 02/06/24 Rosa Deluca PharmD [address] [place] [address] Pharmacist Internal Medicine 12/03/23
--- OUTSIDE RECORDS SUMMARY | 2025-02-04 07:53 | XMS_ITS | Patient Health Record ---
Author Organization [facility] [place] Address [address] [facility] [address] [place] [address] Care Team Providers Care Supervisor Tank Storage Name Role Phone FAUZIA (ODETTEMICHELLE) VICENTE MERINO Primary Care Provider Unavailable Sheldon Pierre Unavailable [phone] Allergies No Known Allergies Reason For Referral [...] 10 mg tablet Take 1 tablet by [facility] once daily orally once a day; Duration: [...] day Marital status Blood Transfusions no Place [place] Problems Problem Type SNOMED Code ICD Code Onset Dates Problem Status W/U Status Risk Notes Problem Hyperkalemia (36724793) Hyperkalemia (E87.5) Active confirmed Problem Acidosis (23132364) Metabolic ac idemia (E87.2) Active confirmed Problem Hypertension (09200493) HTN (hypertension) (I10) Active confirmed Problem Coronary artery disease (19908827) CAD (coronary artery disease) (I25.10) Active confirmed Problem Anemia of renal disease (363344772) Anemia of renal disease (D63.1) Active confirmed Problem DM - Diabetes mellitus (08005405) DM (diabetes mellitus) (E11.9) Active confirmed Problem Diabetic retinopathy (2324268) Diabetic retinopathy (E11.319) Active confirmed Problem Hyperphosphatemia (85407821) Hyperphosphatemia (E83.39) Active confirmed Problem Secondary hyperparathyroidism (54602223) Secondary hyperparathyroidism (N25.81) Active confirmed Problem Vitamin D deficiency (36980229) Vitamin D insufficiency (E55.9) Active confirmed Problem Proteinuria (17147770) Proteinuria (R80.9) Active confirmed Problem Hyperlipidemia (59587349) Hyperlipidemia (E78.5) Active confirmed Problem Requires vaccination (039765326) Pneumococcal vaccine administered (Z23) Active confirmed Problem Chronic kidney disease stage 3B (disorder) (213694275) CKD stage G3b/A3, GFR 30-44 and albumin [...] Insured Coverage Start Date Coverage End Date [facility] [address] [address] [place] [address] [id number] ELAINE FLEMING Self - patient is the insured Medicaid Secondary [address] [place], [place] [id number] [phone] [id number] ELAINE FLEMING Self - patient is the insured 9 Medical (General) History Medical History History ICD Code Hypertension Diabetes High cholesterol Angina Depression Hyperkalemia E87.5 Hypokalemia E87.6 COVID-19 U07.1 Surgical History Surgery Date(Month/Year) Eye Laser Surgery 11/2017 Heart Catherization 11/2017 Heart Catherization w stent placecement 03/2017 Eye surgery 05/2013 cataract surgery , rt 03/2019 Cataract (bilateral) Hospitalization History Reason Date(Month/Year) chest pain [facility] 11/2019
--- NOTE | 2025-02-04 07:54 | A.OFFVIS_ITS ---
Intake Visit Reasons: 6M PSA/ A1C Intake Note: Patient presents for follow up visit on: erectile dysfunction Urology Medications: tamsulosin, VIT-C Blood Thinner: none Remote Operations Producer Required: Yes Remote Operations Producer Services: Remote Operations Producer Present Remote Operations Producer Name: Tonya [id number] Accompanied by: Self / Same As Patient Allergies No Known Allergies Allergy (Verified 02/04/25 08:42) Medication List - Last Reconciled 02/04/25 by EDGARDO Chaudhry ascorbic acid (vitamin C) (Vitamin C) 500 mg PO DAILY aspirin (Pilar Low Dose Aspirin) 81 mg PO DAILY atorvastatin 80 mg PO DAILY 90 days blood sugar diagnostic (Zenverge Ultra Test strips) As directed carvedilol 3.125 mg PO BID clopidogrel 75 mg PO DAILY dapagliflozin propanediol (Farxiga) 10 mg PO DAILY 30 days ezetimibe (Zetia) 10 mg PO DAILY folic acid 1 mg PO DAILY gabapentin 300 mg PO ONCE insulin glargine (Lantus Solostar U-100 Insulin) units subcut semaglutide (Ozempic) 0.5 mg subcut QWEEK tamsulosin 0.4 mg PO BEDTIME tramadol 50 mg PO DAILY HPI Comments Details: Efrain is a 64-year-old Austrian-speaking male patient of Dr. Barreto. He has a past medical history of acute coronary syndrome, diabetic retinopathy, diabetes, hypertension, chronic kidney disease, and smoker. He presents to the office today for follow-up of his erectile dysfunction. In discussion with the patient today he reports since his last office visit here 6 months ago he has since underwent a three-vessel coronary artery bypass grafting on 08/13/2024. He discusses shortly after surgical intervention he had had issues with hypotension however has recently followed up with cardiology and feels with medication adjustment he has been doing well. He denies any bothersome cardiac issues. He reports be happy with current voiding parameters on 0.4 mg of Flomax. His main concern is his ongoing issues with erectile dysfunction. We did discuss risks and benefits of p.o. medications in treatment options of erectile dysfunction. We did discuss penile injection therapy as well as penile prosthetic. We also discussed lifestyle modifications. He discusses being very active and walks anywhere between 3-5 miles a day without any cardiac issues. Recent PSA and A1c results reviewed with the patient today as noted and trended below. Testosterone 05/27 390 PSA 05/27 3.8, 825 2.5 A1c 05/27 6.4%, 01/26 6.8 % He discusses his longstanding history of erectile dysfunction for over 7-10 years. He reports he is able to obtain an erection however not adequate for penetration. He otherwise denies any bothersome urinary issues. He denies any previous trauma and or surgical history in the area. He denies urinary urgency, urinary frequency, incontinence, nocturia, hematuria, dysuria, foul sm elling urine, changes to urinary stream, flank pain, fever, and or chills. In office urinalysis results reviewed with the patient today. We discussed at length potential causes of erectile dysfunction as well as further treatment options and risks and benefits of these treatment options. We discussed lifestyle modifications to assist with ED. He does report walking daily and goes to the gym anywhere between 1-3 times per week. He otherwise denies any other issues or concerns at this time. PFSH Medical History ACS (acute coronary syndrome) Diabetic retinopathy Diabetes Hypertension CKD (chronic kidney disease) Exertional chest pain Smoker Surgical History Hx of CABG Stented coronary artery Hx of cardiac catheterization Family History Mother No problems noted. Father No problems noted. Social History e-Cigarette/Vaping Use: Never Used Current occupational status: unemployed Cognitive needs: No Hearing needs: No Vision needs: Yes (wears glasses) Review of Systems Const Reports no additional complaints Eyes Reports as per HPI ENT Reports no additional complaints Card Reports as per HPI Resp Reports no additional complaints GI Reports no additional complaints Reports as per HPI Musc Reports no additional complaints Neuro Reports no additional complaints Psych Reports no additional complaints Endo Reports as per HPI Physical Exam Const General: cooperative, healthy appearing, comfortable, no acute distress, well developed, alert and awake Orientation/consciousness: patient oriented x3 Limitations: no limitations HEENT Head: Yes normal to inspection, Yes normocephalic and Yes atraumatic Ears: hearing grossly normal bilaterally Eyes General: appearance normal, both eyes and all related structures Neck Neck: Yes normal visual inspection and Yes trachea midline Chest Chest palpation & inspection: normal inspection of the chest Resp Effort & Inspection: normal respiratory effort and able to speak in complete sentences Cardio Rate: regular rate GI Inspection: Yes normal to inspection General: Yes no CVA tenderness Back/Spine/Pelvis Back: no CVA tenderness Skin General skin exam: no rashes or lesions noted Neuro General: patient oriented x3 Extrem General: Yes normal to inspection Psych Appearance: grossly normal and well kempt Mental Status: mental status grossly normal Speech and movement: Normal speech and movement present and Clear speech present Affect: normal affect Attitude: cooperative Thought process: Normal thought process present Thought content: Normal thought content present Insight: Fair insight present (Psych) Judgement: Fair judgement present (Psych) Results AMB Urinalysis, Automated UA Leukoctes 0 Emerson/uL Last Edit by LONG Pedroza on 02/04/25 09:24 UA Nitrite Negative Last Edit by LONG Pedroza on 02/04/25 09:24 UA Urobilinogen 0.2 mg/dL Last Edit by LONG Pedroza on 02/04/25 09:2 4 UA Protein 15 mg/dL Last Edit by LONG Pedroza on 02/04/25 09:24 UA pH 6.5 Last Edit by LONG Pedroza on 02/04/25 09:24 UA Blood 10 Gabriel/uL Last Edit by LONG Pedroza on 02/04/25 09:24 UA Specific [place] 1.010 Last Edit by LONG Pedroza on 02/04/25 09: 24 UA Ketone Negative Last Edit by LONG Pedroza on 02/04/25 09:24 UA Bilirubin 0 mg/dL Last Edit by LONG Pedroza on 02/04/25 09:24 UA Glucose 1000 mg/dL Last Edit by LONG Pedroza on 02/04/25 09:24 Results Reviewed Results Reviewed: Laboratory Last Values Urine pH (Auto) 6.5 02/04/25 09:22 Specific [place] (Auto) 1.010 02/04/25 09:22 Urine Protein (Auto) 15 mg/dL 02/04/25 09:22 Glucose (UA)(Auto) 1000 mg/dL 02/04/25 09:22 Urine Ketones (Auto) Negative 02/04/25 09:22 Urine Blood (Auto) 10 Gabriel/uL 02/04/25 09:22 Urine Nitrite (Auto) Negative 02/04/25 09:22 Urine Bilirubin (Auto) 0 mg/dL 02/04/25 09:22 Urine Urobilinogen (Auto) 0.2 mg/dL 02/04/25 09:22 Leukocyte Esterase (Auto) 0 Emerson/uL 02/04/25 09:22 Assessment & Plan Assessment & Plan (1) Erectile dysfunction associated with type 2 diabetes mellitus: Code(s): E11.69 - Type 2 diabetes mellitus with other specified complication; N52.1 - Erectile dysfunction due to diseases classified elsewhere Category: Medical (2) Lower urinary tract symptoms: Code(s): R39.9 - Unspecified symptoms and signs involving the genitourinary system Category: Medical Plan In office urinalysis results reviewed with the patient today; will send for urine cytology. Recent PSA and A1c results reviewed with the patient today; as noted above. Start low-dose Cialis as discussed and prescribed. Prescription provided for p.r.n. dosing; will start with 10 mg 1 hour prior to sexual activity and not to exceed more than 3 times per week. He reports be happy with current voiding parameters on 0.4 mg of Flomax; will continue. He currently denies any bothersome urinary issues. We did discussed the importance of management and diabetes for ED as well as overall health and well-being. We discussed potential causes of ED as well as further treatment options and risks and benefits of these treatment options. All questions were answered. Will obtain testosterone and A1c in 3 months Follow-up in 3 months with labs to be completed prior; or sooner with any issues, concerns, and or questions. Orders: Orders AMB Urinalysis Automated Today Z13.9 - Encounter for screening, unspecified Hemoglobin A1c 3 Months E11.9 - Type 2 diabetes mellitus without complications Urine Cytology Today N39.0 - Urinary tract infection, site not specified Testosterone, Free/Total 3 Months E11.69 - Type 2 diabetes mellitus with other specified complication, N52.1 - Erectile dysfunction due to diseases classified elsewhere Medications: New tadalafil (Cialis) [id number] [facility]NOTE 2] GroupGDRX Member [id number] 5 mg PO DAILY 90 tabs 1RF 90 days tadalafil (Cialis) Please take 1 tablet 1 hour prior to sexual activity; not to exceed more than 3 times per week [id number] [facility] [place]NOTE 2] GroupGDRX Member [id number] 10 mg PO .PRN PRN 12 tabs 3RF sexual activity 30 days Patient Instructions: The patient had an opportunity to ask questions regarding the treatment plan. All questions were answered. Physical exam, labs, and imaging were discussed and reviewed in detail. As well as risks, benefits, and discussion of treatment choices. No major barriers to understanding were identified. The patient expressed understanding and agreement with the above treatment plan. The patient was made aware they should contact our office by phone for worsening of their current condition, the appearance of new symptoms, or with any questions or concerns. Compliance is encouraged with any medications and follow up testing that is ordered. It is a privilege to be allowed the opportunity to participate in? your urological care.? Again, if you have any questions or concerns If you have any questions or concerns please do not hesitate to contact me. The office is [phone]. This note is constructed using voice recognition software. While every effort has been made to ensure accuracy residential real estate agent errors may have been included. Yours sincerely, EDGARDO Chaudhry Coding Level of Care Code Est Pt Level 4 (10794) Complex EM visit Add On G2211 Diagnoses Erectile dysfunction associated with type 2 diabetes mellitus E11.69; N52.1 Lower urinary tract symptoms R39.9
--- OUTSIDE RECORDS SUMMARY | 2025-02-04 07:54 | XMS_ITS | Encounter Summary ---
Author Organization [employer] Address [address] [facility] [address] [place] [address] Care Team Providers Care Buttonhole Machine Operator Name Role Phone Rosa Deluca PharmD Unavailable [phone] NameJoey MD Primary Care Provider [phone] Reason for Visit * Reason Onset Date Comments Appointment Request 08/25/2024 Encounter Details Date Type Department Care Team ([facility] Contact Info) Description 08/25/2024 Telephone [facility] MEDICINE [address] [place] [address] Name, MD Joey [address] [place] [address] Appointment Request Social History Tobacco Use Types [...] 08/25/2024 2:03 PM EDT Pt discharged from [facility] 08/21/24 Dx: CKD, Chronic Anemia, [...] Got Surgery done 08/15/24. Contact pt at [phone] documented in this encounter Plan of Treatment Upcoming Encounters Date Type Department Care Team (Late st Contact Info) Description 02/10/2025 9:00 AM EDT Medication Management [facility] MEDICINE [address] [place] [address] Rosa Deluca, PharmD [address] [place] [address] 03/03/2025 9:15 AM EDT Office Visit [address] [address] [place] [address] 03/16/2025 10:00 AM EDT Clinical Support [address] [address] Remedios Calderon, KYLER documented as of this [...] documented as of this encounter Care Teams Buttonhole Machine Operator Relationship Specialty Start Date End Date NameJoey MD [address] [place] [address] PCP - General Internal Medicine 02/06/24 Rosa Deluca, Martha [address] [place] [address] Pharmacist Internal Medicine 12/03/23 documented as of this encounter
--- OUTSIDE RECORDS SUMMARY | 2025-02-04 07:54 | XMS_ITS | Encounter Summary ---
Author Organization [employer] Address 75 [facility] 7t [place] [address] Care Team Providers Care Customer Support Agent Name Role Phone Emperatriz Stoll Primary Care Provider [phone] Rosa Deluca PharmD Unavailable [phone] Name, Joey MERINO Primary Care Provider [phone] Reason for Referral * Consultation (Routine) - Closed Specialty Diagnoses / Procedures Referred By Justina willis Referred To Contact Nutrition Diagnoses Controlled type 2 diabetes mellitus without complication, with long-term current use of insulin (CMS/HCC) Emperatriz Stoll FNP [address] [place] [address] Phone: tel: fax: Referral ID Status Reason Start Date Expiration Date V isits Requested Visits Authorized [id number] Closed Specialty Services Required 11/06/2023 11/05/2024 1 1 Encounter Details Date Type Department Care Team (Late st Contact Info) Description 11/06/2023 Orders Only [facility] [address] [place] [address] Emperatriz Stoll FNP [address] [place] [address] Controlled type 2 diabetes mellitus without complication, [...] Description 02/10/2025 9:00 AM EDT Medication Management [facility] MED[facility]INE [address] [place] [address] Rosa Deluca, PharmD [address] [place] [address] 03/03/2025 9:15 AM EDT Office Visit [facility] [address] [place] [address] Name, MD Joey [address] [place] [address] 03/16/2025 10:00 AM EDT Clinical Support [facility] [address] [place] [address] Remedios Calderon, KYLER Scheduled Referrals Name Type [...] as of this encounter Care Teams Customer Support Agent Relationship Specialty Start Date End Date Emperatriz Stoll FNP [address] [place] [address] PCP - General Family Medicine 07/19/22 02/05/24 Name, MD Joey [address] [place] [address] PCP - General Internal Medicine 02/06/24 Rosa Deluca PharmD [address] [place] [address] Pharmacist Internal Medicine 12/03/23 documented as of this encounter
--- OUTSIDE RECORDS SUMMARY | 2025-02-04 07:54 | XMS_ITS | Encounter Summary ---
Author Organization [employer] [facility] Address [address] [place] [address] Care Team Providers Care Web Site Project Manager Name Role Phone Emperatriz Stoll Primary Care Provider [phone] Rosa Deluca PharmD Unavailable [phone] Name, Joey MERINO Primary Care Provider [phone] Encounter Details Date Type Department Care Team ([facility] Contact Info) Description 08/21/2022 Orders Only [facility] MEDICINE [address] [place] [address] Emperatriz Stoll FNP [address] [place] [address] Social History Tobacco Use Types Packs/Day Years [...] Description 02/10/2025 9:00 AM EDT Medication Management [address] [address] [facility]D [facility] [place] [address] 03/03/2025 9:15 AM EDT Office Visit [address] [address] Joey Barreto [facility] [place] [address] 03/16/2025 10:00 AM EDT Clinical Support [address] [address] Remedios Calderon, KYLER documented as of this encounter Visit Diagnoses Not on filedocumented in this encounter Additional Health Concerns Assessment Noted Time PHQ-9 Depression Total Score: 7 07/19/19 23 3:07 PM EST documented as of this encounter Care Teams Web Site Project Manager Relationship Specialty Start Date End Date Emperatriz Stoll FNP [facility] [place] [address] PCP - General Family Medicine 07/19/22 02/05/24 [place] [address] PCP - General Internal Medicine 02/06/24 Rosa Deluca PharmD [address] [place] [address] Pharmacist Internal Medicine 12/03/23 documented as of this encounter
--- OUTSIDE RECORDS SUMMARY | 2025-02-04 07:54 | XMS_ITS | Encounter Summary ---
Author Organization [employer] Address [address] [facility] [address] [place] [address] Care Team Providers Care Trackman Name Role Phone Emperatriz Stoll Primary Care Provider [phone] Rosa Deluca PharmD Unavailable [phone] Name, Joey MERINO Primary Care Provider [phone] Reason for Visit * Reason Comments Med Refill Encounter Details Date Type Department Care Team ([facility] st Contact Info) Description 2023 Refill [facility] MEDICINE [address] [place] [address] Emperatriz Stoll FNP [address] [place] [address] Social History Tobacco Use Types Packs/Day Years [...] Description 02/10/2025 9:00 AM EDT Medication Management [address] [address] Rosa Deluca, PharmD [address] [place] [address] 03/03/2025 9:15 AM EDT Office Visit [address] [address] Name, MD Joey [address] [place] [address] 03/16/2025 10:00 AM EDT Clinical Support [address] [address] Remedios Calderon, RN documented as of this [...] documented as of this encounter Care Teams Trackman Relationship Specialty Start Date End Date Emperatriz Stoll FNP [address] [place] [address] PCP - General Family Medicine 07/19/22 02/05/24 Name, MD Joey [address] [place] [address] PCP - General Internal Medicine 02/06/24 Rosa Deluca, Martha [address] [place] [address] Pharmacist Internal Medicine 12/03/23 documented as of this encounter
--- OUTSIDE RECORDS SUMMARY | 2025-02-04 07:54 | XMS_ITS | Patient Health Record ---
Author Organization [facility] Address [address] [address] Care Team Providers Care Head Golf Professional Name Role Phone Data, Migration. Unavailable [phone] Reason For Referral No Information Medications Medication [...] Status W/U Status Risk Notes Problem Heartburn (93249037) Heartburn (R12) 08/18/19 Active confirmed XL532-Dhpktki rn Problem Acid reflux (603202123) Acid reflux (K21.9) 08/18/19 18 Active confirmed GU614-Zwqr reflux Problem Epigastric pain (48984569) Abdominal Pain Epigastric (R10.13) 08/18/19 18 Active confirmed BI233-Dtgvhwy al Pain Epigastric Problem Flatulence, eructation and gas pain (573085190) Bloating /gas symptom (R14.0) 08/18/19 18 Active confirmed LX478-Rbongpw g /gas symptom Plan Of Treatment No Information Medical (General) History Surgical History Surgery Date(Month/Year) Eye Surgery (Right) 2017 catheterization 2017 Stent (1) 2016
--- OUTSIDE RECORDS SUMMARY | 2025-02-04 07:55 | XMS_ITS | Encounter Summary ---
Author Organization [facility] Address [address] [place] [address] Phone Care Team Providers Care Deck Steward Name Role Phone Name, Joey MERINO Primary Care Provider [phone] Encounter Details Date Type Department Care Team (Late st Contact Info) Description 08/09/2022 Telephone [facility] [address] [facility] [address] [place] [address] Patricia Deras Social History Tobacco [...] [facility] [address] [phone] Kevin Gates MD [address] [phone] documented as of this encounter Visit Diagnoses Not on filedocumented in this encounter Care Teams Deck Steward Relationship Specialty Start Date End Date Name, MD Joey [address] [place] [address] PCP - General Internal Medicine 07/16/24 documented as of this encounter
--- OUTSIDE RECORDS SUMMARY | 2025-02-04 07:55 | XMS_ITS | Encounter Summary ---
Author Organization [employer] Address [address] [facility] [address] 7[address] [place] [address] Care Team Providers Care Telemetry Technician Name Role Phone Emperatriz Stoll Primary Care Provider [phone] Rosa Deluca PharmD Unavailable [phone] Name, Joey MERINO Primary Care Provider [phone] Reason for Visit * Reason Onset Date Comments Med Refill 08/30/2023 Encounter Details Date Type Department Care Team ([facility] Contact Info) Description 08/30/2023 Telephone [facility] MEDICINE [address] [place], [place] [phone] Emperatriz Stoll FNP [address] [place] [address] Med Refill Social History Tobacco Use Types [...] 50 MG tablet To be sent to: [facility] - [address] documented in this encounter Plan of Treatment Upcoming Encounters Date Type Department Care Team ([facility] Contact Info) Description 02/10/2025 9:00 AM EDT Medication Management [address] [address] Rosa Deluca, PharmD [address] [place] [address] 03/03/2025 9:15 AM EDT Office Visit [address] [address] Name, MD Joey [address] [place] [address] 03/16/2025 10:00 AM EDT Clinical Support [address] [address] Remedios Calderon, RN documented as of this [...] documented as of this encounter Care Teams Telemetry Technician Relationship Specialty Start Date End Date Emperatriz Stoll FNP [address] [place] [address] PCP - General Family Medicine 07/19/22 02/05/24 Name, MD Joey [address] [place] [address] PCP - General Internal Medicine 02/06/24 Rosa Deluca, DamionD [address] [place] [address] Pharmacist Internal Medicine 12/03/23 documented as of this encounter
--- OUTSIDE RECORDS SUMMARY | 2025-02-04 07:55 | XMS_ITS | Clinical Summary ---
Author Organization [facility] Address [address] [place] [address] Phone Care Team Providers Care Vacuum Applicator Operator Name Role Phone Name, Joey MERINO Primary Care Provider [phone] Allergies No known active allergies Medications carvedilol [...] Only [facility] [address] [address] Kevin Gates MD 12/28/2024 Orders Only [facility] [address] [address] Patricia Fulton ARNP Chronic kidney disease, stage 4 (severe) (HCC); Hypertension; Renal osteodystrophy; Hyperkalemia 12/15/2024 1:00 PM EDT Office Visit [facility] [address] [address] Kevin Gates MD Chronic kidney disease, stage 4 (severe) (HCC) (Primary Dx); Type 2 diabetes mellitus with diabetic chronic kidney disease (HCC); Renal osteodystrophy from Last 3 Months [...] [facility] [address] [address] Kevin Gates MD [address] [address] Health Maintenance Due Date Last [...] 9:35 AM EDT 01/06/2025 9:35 AM EDT Patricia CORREIA LAB URINE ORDERABLES Final Result [place] See order comments [place] [address] * (ABNORMAL) Albumin, urine, random (01/06/2025 9:35 [...] MD LAB URINE ORDERABLES Final Re sult [place] See order comments [place] [address] * (ABNORMAL) Urinalysis with microscopic (01/06/2025 9:35 AM EDT) Color Urine Yellow See orde r comments Appearance Urine Clear See order comments pH Urine 6.0 5.0 - 9.0 See order comments Glucose Urine >=1000(A) Negative mg/dL See order comments Blood, Urine Negative Negative See ord er comments Specific Opp Urine 1.025 1.005 - 1.025 See order [...] ORDERABLES Final Re sult Performing Organization Address [facility] de Phone Number [place] See order comments [place] [address] * (ABNORMAL) Creatinine (01/06/2025 8:59 AM EDT) Creatinine Serum 2.35(H) 0.5 - 1.4 mg/dL See order comments eGFR (Calc) 28 See orde r comments Comment: Chronic Kidney Disease: Estimated GFR < 60 mL/min/1.73m2 Severe Kidney Disease: Estimated GFR < 15 mL/min/1.73m2 01/06/2025 8:59 AM EDT 01/06/2025 8:59 AM EDT Kevin Gates MD LAB BLOOD ORDERABLES Final Re sult Performing Organization Address [facility] de Phone Number [place] See order comments [place] [address] * (ABNORMAL) PTH, Intact (01/06/2025 8:59 AM EDT) Parathyroid Hormone, Intact 115.3(H) 8.7 - 77.1 pg/mL See order comments 01/06/2025 8:59 AM EDT 01/06/2025 8:59 AM EDT Kevin Gates MD LAB [id number] SOLICITED RESULTS Final Result Performing Organization Address [facility] Phone Number [place] See order comments [place] [address] * (ABNORMAL) Vitamin D 25 Hydroxy (01/06/2025 [...] order comments [place] [address] * (ABNORMAL) CBC and Differential (01/06/2025 8:59 [...] ORDERABLES Final Re sult Performing Organization Address [facility] Co de Phone Number [place] See order comments [place] [address] * (ABNORMAL) BUN (01/06/2025 8:59 AM EDT) BUN 33(H) 9 - 16 mg/dL See order comments 01/06/2025 8:59 AM EDT 01/06/2025 8:59 AM EDT Kevin Gates MD LAB BLOOD ORDERABLES Final Re sult Performing Organization Address [facility] Co de Phone Number [place] See order comments [place] [address] * Phosphorus (01/06/2025 8:59 AM EDT) Phosphorus, Serum 3.4 2.7 - 4.5 mg/dL See order comments Blood Venous blood / Unknown 01/06/2025 8:59 AM EDT 01/06/2025 8:59 AM EDT us Kevin Gates MD LAB BLOOD ORDERABLES Final Re sult Performing Organization Address [facility] de Phone Number [place] See order comments [place] [address] * Magnesium (01/06/2025 8:59 AM EDT) Magnesium 2.2 1.6 - 2.6 mg/dL See order comments Blood Venous blood / Unknown 01/06/2025 8:59 AM EDT 01/06/2025 8:59 AM EDT us Kevin Gates MD LAB BLOOD ORDERABLES Final Re sult Performing Organization Address [facility] Phone Number [place] See order comments [place] [address] * Calcium (01/06/2025 8:59 AM EDT) Calcium 9.0 8.4 - 10.2 mg/dL See order comments Blood Venous blood / Unknown 01/06/2025 8:59 AM EDT 01/06/2025 8:59 AM EDT us Kevin Gates MD LAB BLOOD ORDERABLES Final Re sult Performing Organization Address [facility] Phone Number [place] See order comments [place] [address] * Albumin (01/06/2025 8:59 AM EDT) Albumin 4.3 3.5 - 5.0 g/dL See order comments Blood Venous blood / Unknown 01/06/2025 8:59 AM EDT 01/06/2025 8:59 AM EDT us Kevin Gates MD LAB BLOOD ORDERABLES Final Re sult Performing Organization Address [facility] Phone Number [place] See order comments [place] [address] * (ABNORMAL) Electrolyte panel (01/06/2025 8:59 AM [...] order comments [place] [address] from Last 3 Months Insurance [id number] [employer] One [employer] Dual SNP ([id number]) [facility] One Care Dual SNP ([id number]) Care Teams Vacuum Applicator Operator Relationship Specialty Start Date End Date Name, MD Joey [address] [place] [id number] PCP - General Internal Medicine 07/16/24
== END 2025-02-04 08:27 | disposition home or self-care (01) ==
LOC: HO.HUSH 07:47
PROVIDERS: PCP Nurse Practitioner Family; Visit Provider Nurse Practitioner Family
DX: E11.69 Type 2 diabetes mellitus with other specified complication (principal); N52.1 Erectile dysfunction due to diseases classified elsewhere; R39.9 Unspecified symptoms and signs involving the genitourinary system; Z13.9 Encounter for screening, unspecified
CPT/HCPCS: 99214; G2211

== ENCOUNTER → 2025-02-04 07:46 | Outpatient (BNVA) | payer OTHER, SELFPAY | PROVIDERS: PCP Nurse Practitioner Family; Visit Provider Nurse Practitioner Family | DX: E11.69 Type 2 diabetes mellitus with other specified complication (principal); N52.1 Erectile dysfunction due to diseases classified elsewhere; R39.9 Unspecified symptoms and signs involving the genitourinary system | CPT/HCPCS: 81003; 99212 ==

== ENCOUNTER 2025-02-11 08:30 | Outpatient (RCR) | payer OTHER, SELFPAY ==
[2025-01-12 09:41] LABS: Glucose, Whole Blood 81 mg/dL (60-115)
[2025-01-14 09:44] LABS: Glucose, Whole Blood 134 mg/dL (60-115)
[2025-02-06 09:56] LABS: Glucose, Whole Blood 99 mg/dL (60-115)
== END 2025-02-12 07:53 | disposition home or self-care (01) ==
LOC: HO.CR 08:30
PROVIDERS: Nurse Practitioner Family; PCP Nurse Practitioner Family; Visit Provider Physician Assistant Surgical
DX: Z95.1 Presence of aortocoronary bypass graft (principal)
CPT/HCPCS: 82947; 88112; 93798

== ENCOUNTER 2025-04-02 08:45 | Outpatient (REF) | payer OTHER, SELFPAY ==
[2025-04-02 09:20] LABS: MANUAL DIFF FLAG NO
[2025-04-02 09:30] LABS: Hematocrit 41.3 % (42.0-52.0); Hemoglobin 12.8 g/dl (14.0-18.0); Imm Gran Abs Auto 0.01 X10*3/uL (0.00-0.03); Imm Gran Pct Auto 0.1 % (0.0-0.4); Lymphocytes Absolute Auto 1.9 X10*3/uL (1.2-4.9); Mean Corpuscular HGB Conc 31.0 g/dl (31.0-36.0); Mean Corpuscular Hemoglobin 29.2 pg (27.0-33.0); Mean Corpuscular Volume 94.1 fL (80.0-98.0); NRBC Abs Auto 0.000 X10*3/uL (0.0-0.012); NRBC Pct Auto 0.0 /100WBC (0.0-0.2); Platelet Count 276 X10*3/uL (160-400); Red Blood Count 4.39 X10*6/uL (4.60-5.80); White Blood Count 7.5 X10*3/uL (4.8-10.8)
--- OUTSIDE RECORDS SUMMARY | 2025-04-02 09:41 | XMS_ITS | Encounter Summary ---
Author Organization [employer] Address [address] [place] [address] 7t [place] [address] Care Team Providers Care Kitchen Help Handyman Name Role Phone Rosa Deluca PharmD Unavailable [phone] Name, Joey MERINO Primary Care Provider [phone] Reason for Visit * Reason Comments Med Refill Encounter Details Date Type Department Care Team ([facility] st Contact Info) Description 12/09/2024 Refill [facility] MED[facility]INE [address] [place] [address] Lindsay Toscano MD 230 [place] [address] Social History Tobacco Use Types Packs/Day Years [...] Care Team (Late st Contact Info) Description 06/15/2025 10:30 AM EST Clinical Support [facility] [address] [place] [address] Remedios Calderon RN documented as of this encounter Goals Goal Patient Goal Type Associated Problems Recent Progress Patient-Stated? Author Blood Pressure < 140/90 Blood Pressure 118/66(2024 9:07 AM EDT) No Donald Johnson Hemoglobin A1c < 7.5 Result Component 6.8( 10:16 AM EDT) No Donald Johnson documented as of this encounter Visit Diagnoses Not on filedocumented in this encounter Additional Health Concerns Assessment Noted Time PHQ-9 Depression Total Score: 8 06/06/19 25 11:44 AM EST documented as of this encounter Care Teams Kitchen Help Handyman Relationship Specialty Start Date End Date Name, MD Joey [address] [place] [address] PCP - General Internal Medicine 02/06/24 Rosa Deluca PharmD [address] [place] [address] Pharmacist Internal Medicine 12/03/23 03/23/25 documented as of this encounter
--- OUTSIDE RECORDS SUMMARY | 2025-04-02 09:41 | XMS_ITS | Encounter Summary ---
Author Organization [employer] Address [address] 7t [place] [address] Care Team Providers Care Sweatband Flanger Name Role Phone Rosa Deluca PharmD Unavailable [phone] Name, Joey MERINO Primary Care Provider [phone] Reason for Visit * Reason Comments Med Refill Encounter Details Date Type Department Care Team ([facility] st Contact Info) Description 12/09/2024 Refill [facility] MED & PEDS [address] [place], [place] [phone] Name, MD Joey [address] [place] [address] Social History Tobacco Use Types Packs/Day Years [...] Description 06/15/2025 10:30 AM EST Clinical Support [facility] [address] [place] [address] Remedios Calderon RN documented as of this [...] documented as of this encounter Care Teams Sweatband Flanger Relationship Specialty Start Date End Date Name, MD Joey [address] [place] [address] PCP - General Internal Medicine 02/06/24 Rosa Deluca PharmD [address] [place] [address] Pharmacist Internal Medicine 12/03/23 03/23/25 documented as of this encounter
--- OUTSIDE RECORDS SUMMARY | 2025-04-02 09:41 | XMS_ITS | Encounter Summary ---
Author Organization [employer] Address [address] 7t [place] [address] Care Team Providers Care Guest Advisor Name Role Phone Emperatriz Stoll Primary Care Provider [phone] Rosa Deluca PharmD Unavailable [phone] Name, Joey MERINO Primary Care Provider [phone] Encounter Details Date Type Department Care Team (Late st Contact Info) Description 04/06/2023 Orders Only [facility] & PEDS [address] [place] [address] Emperatriz Stoll FNP [address] [place] [address] Social History Tobacco Use Types Packs/Day Years [...] Description 06/15/2025 10:30 AM EST Clinical Support [facility] [address] [place] [address] Remedios Calderon RN documented as of this encounter Goals Goal Patient Goal Type Associated Problems Recent Progress Patient-Stated? Author Blood Pressure < 140/90 Blood Pressure 118/66(2024 9:07 AM EDT) No Donald Johnosn Hemoglobin A1c < 7.5 Result Component 6.8( 10:16 AM EDT) No Donald Johnson documented as of this encounter Visit Diagnoses Not on filedocumented in this encounter Additional Health Concerns Assessment Noted Time PHQ-9 Depression Total Score: 0 12/14/19 11:09 AM EDT documented as of this encounter Care Teams Guest Advisor Relationship Specialty Start Date End Date Emperatriz Stoll FNP [address] [place] [address] PCP - General Family Medicine 07/19/22 02/05/24 Joey Barreto MD [address] [place] [address] PCP - General Internal Medicine 02/06/24 Rosa Deluca PharmD [address] [place] [address] Pharmacist Internal Medicine 12/03/23 03/23/25 documented as of this encounter
--- OUTSIDE RECORDS SUMMARY | 2025-04-02 09:41 | XMS_ITS | Encounter Summary ---
Author Organization [employer] Address [address] [place] [address] 7t [place] [address] Care Team Providers Care Cooler Deliverer Name Role Phone Rosa Deluca PharmD Unavailable [phone] Name, Joey MERINO Primary Care Provider [phone] Encounter Details Date Type Department Care Team ([facility] st Contact Info) Description 12/09/2024 Refill [facility] MED[facility]INE [address] [place] [address] Lindsay Toscano MD [address] [place] [address] Social History Tobacco Use Types Packs/Day Years [...] Description 06/15/2025 10:30 AM EST Clinical Support [facility] [address] [place] [address] Remedios Calderon, RN documented as of this [...] documented as of this encounter Care Teams Cooler Deliverer Relationship Specialty Start Date End Date Name, MD Joey 230 [place] [address] PCP - General Internal Medicine 02/06/24 Rosa Deluca, Martha [address] [place] [address] Pharmacist Internal Medicine 12/03/23 03/23/25 documented as of this encounter
--- OUTSIDE RECORDS SUMMARY | 2025-04-02 09:42 | XMS_ITS | Encounter Summary ---
Author Organization [employer] [facility] Address [address] 7t [place] [address] Care Team Providers Care Harvesting Contractor Name Role Phone Emperatriz Stoll Primary Care Provider [phone] Rosa Deluca PharmD Unavailable [phone] Name, Joey MERINO Primary Care Provider [phone] Encounter Details Date Type Department Care Team ([facility] Contact Info) Description 08/21/2022 Orders Only [facility] MEDICINE 230 [place] [address] Emperatriz Stoll FNP [address] [place] [address] Social History Tobacco Use Types Packs/Day Years [...] Department Care Team (Late Contact Info) Description 06/15/2025 10:30 AM EST Clinical Support [facility] MEDICINE [address] [place] [address] Remedios Calderno, RN documented as of this encounter Visit Diagnoses Not on filedocumented in this encounter Additional Health Concerns Assessment Noted Time PHQ-9 Depression Total Score: 7 07/19/19 23 3:07 PM EST documented as of this encounter Care Teams Harvesting Contractor Relationship Specialty Start Date End Date Emperatriz Stoll FNP [address] [place] [address] PCP - General Family Medicine 07/19/22 02/05/24 Name, MD Joey [address] [place] [address] PCP - General Internal Medicine 02/06/24 Rosa Deluca, DamionD [address] [place] [address] Pharmacist Internal Medicine 12/03/23 03/23/25 documented as of this encounter
--- OUTSIDE RECORDS SUMMARY | 2025-04-02 09:42 | XMS_ITS | Encounter Summary ---
Author Organization [employer] Address [address] 7t [place] [address] Care Team Providers Care Dressed Poultry Grader Name Role Phone Emperatriz Stoll Primary Care Provider [phone] Rosa Deluca PharmD Unavailable [phone] Name, Joey MERINO Primary Care Provider [phone] Reason for Visit * Reason Comments Med Refill Encounter Details Date Type Department Care Team (Late st Contact Info) Description 01/12/2023 Refill [facility] MEDICINE [address] [place] [address] Emperatriz Stoll FNP [address] [place] [address] Other chronic pain Social History Tobacco Use [...] Description 06/15/2025 10:30 AM EST Clinical Support [facility]INE [address] [place] [address] Remedios Calderon, RN documented as of this encounter Visit Diagnoses Diagnosis Other chronic pain documented in this encounter Additional Health Concerns Assessment Noted Time PHQ-9 Depression Total Score: 0 12/14/19 11:09 AM EDT documented as of this encounter Care Teams Dressed Poultry Grader Relationship Specialty Start Date End Date Emperat[place] [address] PCP - General Family Medicine 07/19/22 02/05/24 Mary Lou, MD Joey [address] [place] [address] PCP - General Internal Medicine 02/06/24 Rosa Deluca, Martha [address] [place] [address] Pharmacist Internal Medicine 12/03/23 03/23/25 documented as of this encounter
--- OUTSIDE RECORDS SUMMARY | 2025-04-02 09:42 | XMS_ITS | Encounter Summary ---
Author Organization [employer] [facility] Address [address] 7t [place] [address] Care Team Providers Care Secondary School Special Ed Teacher Name Role Phone Emperatriz Stoll Primary Care Provider [phone] Rosa Deluca PharmD Unavailable [phone] Name, Joey MERINO Primary Care Provider [phone] Encounter Details Date Type Department Care Team ([facility] Contact Info) Description 10/20/2022 Orders Only [facility] MEDICINE [address] [place] [address] Emperatriz Stoll FNP [address] [place] [address] Other chronic pain Social History Tobacco Use [...] Description 06/15/2025 10:30 AM EST Clinical Support [facility] MEDICINE [address] [place] [address] Remedios Calderon RN documented as of this encounter Procedures Procedure Name Priority Date/Time Associated Diagnosis Comments XR CHEST 2 VIEWS Routine 11/17/2022 4:30 PM EDT documented in this encounter Results * XR Chest 2 Views (11/17/2022 4:30 PM EDT) Anatomical Region Laterality Modality Chest Radiographic Mony ging 11/17/2022 4:30 PM EDT Narrative 11/24/2022 2:21 PM EDT [address] [address] XRay Report Signed Patient: Efrain Dewitt MR#: [id number] : 1960 Acct:[id number] Age/Sex: 61 / M ADM Date: 11/17/22 [facility] Dr: Emperatriz Stoll DEPUTY SHERIFF LIEUTENANT Ordering Physician: Emperatriz Stoll NP Date of Service: 11/17/22 Procedure(s): XR chest 2V Accession Number(s): [id number] cc: Emperatriz Stoll DEPUTY SHERIFF LIEUTENANT EXAMINATION: XR CHEST CLINICAL INFORMATION: Bilateral lower [...] in OV> 11/24/22 1418 DD/ 1630 TD/TT: Adjunct Instructor Chemistry: DAVID Procedure Note Donotuseinterpreter, Image - 11/29/[address] [address] XRay Report Signed Patient: Efrain DewittMR#: [id number] : 1960cct:[id number] Age/Sex: 61 / MADM Date: 11/17/22 Loc: HO.[facility] Attending Dr: Emperatriz Stoll DEPUTY SHERIFF LIEUTENANT Ordering Physician: Emperatriz Stoll NP Date of Service: 11/17/22 Procedure(s): XR chest 2V Accession Number(s): [id number] cc: Emperatriz Stoll DEPUTY SHERIFF LIEUTENANT EXAMINATION: XR CHEST CLINICAL INFORMATION: Bilateral lower [...] in OV> 11/24/22 1418 DD/ 1630 TD/TT: Adjunct Instructor Chemistry: DAVID [facility] External Provider IMG XR PROCEDURES Final Result documented in this encounter Visit Diagnoses Diagnosis Other chronic pain documented in this encounter Additional Health Concerns Assessment Noted Time PHQ-9 Depression Total Score: 7 07/19/19 3:07 PM EST documented as of this encounter Care Teams [employer] Special Ed Teacher Relationship Specialty Start Date End Date Emperatriz Stoll FNP [address] [place] [address] PCP - General Family Medicine 07/19/22 02/05/24 Joey Barreto MD [address] [place] [address] PCP - General Internal Medicine 02/06/24 Rosa Deluca PharmD [address] [place] [address] Pharmacist Internal Medicine 12/03/23 03/23/25 documented as of this encounter
--- OUTSIDE RECORDS SUMMARY | 2025-04-02 09:42 | XMS_ITS | Encounter Summary ---
Author Organization [employer] Address [address] 7t [place] [address] Care Team Providers Care Provider Service Representative Name Role Phone Emperatriz Stoll Primary Care Provider +[phone] Rosa Deluca PharmD Unavailable [phone] Name, Joey MERINO Primary Care Provider [phone] Reason for Visit * Reason Comments Med Refill Encounter Details Date Type Department Care Team ([facility] st Contact Info) Description 05/01/2023 Refill [facility] MEDICINE [address] [place] [address] Emperatriz Stoll FNP [address] [place] [address] Primary hypertension Social History Tobacco Use Types [...] Description 06/15/2025 10:30 AM EST Clinical Support [facility] MEDICINE [address] [place] [address] Remedios Calderon RN documented as of this [...] documented as of this encounter Care Teams Provider Service Representative Relationship Specialty Start Date End Date Emperatriz Stoll FNP [address] [place] [address] PCP - General Family Medicine 07/19/22 02/05/24 Joey Barreto MD [address] [place] [address] PCP - General Internal Medicine 02/06/24 Rosa Deluca, Martha [address] [place] [address] Pharmacist Internal Medicine 12/03/23 03/23/25 documented as of this encounter
--- OUTSIDE RECORDS SUMMARY | 2025-04-02 09:42 | XMS_ITS | Encounter Summary ---
Author Organization [employer] Address [address] 7t [place] [address] Care Team Providers Care Veneer Glue Jointer Feedback Name Role Phone Emperatriz Stoll Primary Care Provider +[phone] Rosa Deluca PharmD Unavailable [phone] Name, Joey MERINO Primary Care Provider [phone] Reason for Visit * Reason Comments Med Refill Encounter Details Date Type Department Care Team ([facility] st Contact Info) Description 2023 Refill [facility] [address] [place] [address] Emperatriz Stoll FNP [address] [place] [address] Social History Tobacco Use Types Packs/Day Years [...] Description 06/15/2025 10:30 AM EST Clinical Support [facility] [address] [place] [address] Remedios Calderon RN documented as of this [...] documented as of this encounter Care Teams Veneer Glue Jointer Feedback Relationship Specialty Start Date End Date Emperatriz Stoll FNP [address] [place] [address] PCP - General Family Medicine 07/19/22 02/05/24 Joey Barreto MD [address] [place] [address] PCP - General Internal Medicine 02/06/24 Rosa Deluca, Martha [address] [place] [address] Pharmacist Internal Medicine 12/03/23 03/23/25 documented as of this encounter
--- OUTSIDE RECORDS SUMMARY | 2025-04-02 09:42 | XMS_ITS | Encounter Summary ---
Author Organization [employer] Address [address] 7t [place] [address] Care Team Providers Care Pot Operator Name Role Phone Emperatriz Stoll Primary Care Provider [phone] Rosa Deluca PharmD Unavailable [phone] Name, Joey MERINO Primary Care Provider [phone] Reason for Visit * Reason Onset Date Comments Med Refill 08/30/2023 Encounter Details Date Type Department Care Team ([facility] st Contact Info) Description 08/30/2023 Telephone [facility] MEDICINE [address] [place], [place] [phone] Emperatriz Stoll FNP [address] [place] [address] Med Refill Social History Tobacco Use Types [...] 50 MG tablet To be sent to: [facility] [place], [place] - [address] [place] [address] documented in this encounter Plan of Treatment Upcoming Encounters Date Type Department Care Team ([facility] st Contact Info) Description 06/15/2025 10:30 AM EST Clinical Support [facility] MEDICINE [address] [place] [address] Remedios Calderon RN documented as of this [...] documented as of this encounter Care Teams Pot Operator Relationship Specialty Start Date End Date Emperatriz Stoll FNP [address] [place] [address] PCP - General Family Medicine 07/19/22 02/05/24 aMry Lou, MD Joey [address] [place] [address] PCP - General Internal Medicine 02/06/24 Rosa Deluca, Martha [address] [place] [address] Pharmacist Internal Medicine 12/03/23 03/23/25 documented as of this encounter
--- OUTSIDE RECORDS SUMMARY | 2025-04-02 09:42 | XMS_ITS | Clinical Summary ---
Author Organization [employer] Address [address] [facility] [address] [place] [address] Care Team Providers Care Hydroelectric Production Technician Name Role Phone Name, Joey MERINO Primary Care Provider [phone] Allergies No known active allergies Medications albuterol 108 (90 Base) MCG/ACT inhaler Inhale 2 puffs every 4 (four) hours if needed for wheezing. 18 g 09/05/19 23 Active atorvastatin (Lipitor) 80 MG tablet Take 80 mg by mouth Once per day. 09/21/19 23 Active ezetimibe (Zetia) 10 MG tablet TAKE 1 TABLET BY MOUTH EVERY MORNING 90 tablet 3 08/14/19 25 Active lactulose 20 gram/30 mL oral solution Take 30 mL (20 g) by mouth Once per day. 450 mL 3 09/10/19 25 026 Active carvedilol (Coreg) 3.125 MG tabletIndicati ons:Hypertensi on, unspecified type Take 1 tablet (3.125 mg) by mouth with breakfast and with evening meal. 60 tablet 09/13/19 25 Active cyanocobalamin (Vitamin B-12) 500 MCG tablet Patient reports purchasing OTC Active clopidogrel (Plavix) 75 MG tablet Take 75 mg by mouth Once per day. Active naloxone (Narcan) 4 mg/0.1 mL nasal sprayIndicatio ns:Long-term current use of opiate analgesic Administer 1 spray (4 mg) into affected nostril(s) if needed for opioid reversal. May repeat every 2-3 minutes if needed, alternating nostrils, until medical assistance becomes available. 2 each 3 12/18/19 25 026 Active Lancets 33G miscIndication s:Type 2 diabetes mellitus with hyperglycemia, with long-term current use of insulin (HCC) Use as directed to check blood sugar 3 times daily 100 each 11 01/24/20 25 Active polyethylene glycol, PEG, 3350 (Glycolax) 17 GM/SCOOP powder Mix 17g (1 capful) in 8 ounces of water and take by mouth every day FOR 3 DAYS 510 g 2 02/20/20 25 Active Ascorbic Acid (vitamin C) 500 MG tablet TAKE 1 TABLET BY MOUTH EVERY MORNING 30 tablet 2 03/05/20 25 Active folic acid (Folvite) 1 MG tabletIndicati ons:Dietary counseling TAKE 1 TABLET BY MOUTH EVERY MORNING 30 tablet 2 03/05/20 25 Active tamsulosin (Flomax) 0.4 MG 24 hr capsule TAKE 1 CAPSULE BY MOUTH AT BEDTIME 30 capsule 03/10/20 25 Active gabapentin (Neurontin) 300 MG capsule TAKE 1 CAPSULE BY MOUTH EVERY MORNING 30 capsule 03/10/20 25 Active traMADol (Ultram) 50 MG tabletIndicati ons:Other chronic pain Take 1 tablet (50 mg) by mouth every 8 (eight) hours if needed for severe pain for up to 28 days. Do not start before March 11, 2025. 84 tablet 03/11/20 25 025 Active aspirin (Aspirin Low Dose) 81 MG chewable tabletIndicati ons:Presence of coronary angioplasty implant and graft CHEW 1 TABLET BY MOUTH EVERY MORNING 90 tablet 1 03/10/20 25 Active tamsulosin (Flomax) 0.4 MG 24 hr capsule Take 1 capsule (0.4 mg) by mouth at bedtime. 30 capsule 03/10/20 25 Active gabapentin (Neurontin) 300 MG capsule Take 1 capsule (300 mg) by mouth in the morning. 30 capsule 03/10/20 25 Active aspirin (Aspirin Low Dose) 81 MG chewable tabletIndicati ons:Presence of coronary angioplasty implant and graft Chew 1 tablet (81 mg) Once per day. 90 tablet 03/10/20 25 Active Continuous Glucose Sensor (FreeStyle Sarina 2 Plus Sensor) miscIndication s:Type 2 diabetes mellitus with hyperglycemia, with long-term current use of insulin (HCC) 1 each every 8 (eight) hours. 2 each 03/23/20 25 Active Farxiga 10 MGIndications: Type 2 diabetes mellitus with hyperglycemia, with long-term current use of insulin ([facility]) Take 1 tablet (10 mg) by mouth Once per day. 90 tablet 3 03/23/20 25 026 Active glucose blood (FreeStyle Precision Virgil Test) test stripIndicatio ns:Type 2 diabetes mellitus with hyperglycemia, with long-term current use of insulin ([facility]) Use to test blood sugar every 8 hours as directed 100 each 11 03/23/20 25 026 Active glucose 4 g chewable tabletIndicati ons:Type 2 diabetes mellitus with hyperglycemia, with long-term current use of insulin ([facility]) Chew 4 tablets (16 g) if needed for low blood sugar. 50 tablet 12 03/23/20 25 Active semaglutide (Ozempic, 1 MG/DOSE,) 4 MG/3ML solution pen-injectorIn dications:Type 2 diabetes mellitus with hyperglycemia, with long-term current use of insulin ([facility]) Inject 1 mg under the skin 1 (one) time per week. 3 mL 1 03/23/20 25 Active Farxiga 10 MGIndications: Controlled type 2 diabetes mellitus without complication, unspecified whether long winder tender insulin use Take 1 tablet (10 mg) by mouth Once per day. 90 tablet 3 06/24/19 25 025 Discontinued(R eorder (will not trigger notification to Pharmacy)) glucose 4 g chewable tabletIndicati ons:Type 2 diabetes mellitus with hyperglycemia, with long-term current use of insulin ([facility]) Chew 4 tablets (16 g) if needed for low blood sugar. 50 tablet 12 10/08/19 25 025 Discontinued(R eorder (will not trigger notification to Pharmacy)) glucose blood (FreeStyle Precision Virgil Test) test stripIndicatio ns:Type 2 diabetes mellitus with hyperglycemia, with long-term current use of insulin ([facility]) Use to test blood sugar every 8 hours as directed 100 each 11 10/08/19 25 025 Discontinued(R eorder (will not trigger notification to Pharmacy)) aspirin (Aspirin Low Dose) 81 MG chewable tabletIndicati ons:Presence of coronary angioplasty implant and graft Chew 1 tablet (81 mg) Once per day. 90 tablet 11/11/19 25 025 Discontinued(R eorder (will not trigger notification to Pharmacy)) Ascorbic Acid (vitamin C) 500 MG tablet TAKE 1 TABLET BY MOUTH EVERY MORNING 30 tablet 2 12/02/19 25 025 Discontinued folic acid (Folvite) 1 MG tabletIndicati ons:Dietary counseling TAKE 1 TABLET BY MOUTH EVERY MORNING 30 tablet 1 01/02/20 25 025 Discontinued(R eorder (will not trigger notification to Pharmacy)) Continuous Glucose Sensor (FreeStyle Sarina 2 Plus Sensor) miscIndication s:Type 2 diabetes mellitus with hyperglycemia, with long-term current use of insulin (HCC) 1 each every 8 (eight) hours. 2 each 11 01/22/20 25 025 Discontinued(R eorder (will not trigger notification to Pharmacy)) gabapentin (Neurontin) 300 MG capsule TAKE 1 CAPSULE BY MOUTH EVERY MORNING 30 capsule 02/07/20 25 025 Discontinued(R eorder (will not trigger notification to Pharmacy)) tamsulosin (Flomax) 0.4 MG 24 hr capsule TAKE 1 CAPSULE BY MOUTH AT BEDTIME 30 capsule 02/07/20 25 025 Discontinued(R eorder (will not trigger notification to Pharmacy)) traMADol (Ultram) 50 MG tabletIndicati ons:Other chronic pain Take 1 tablet (50 mg) by mouth every 8 (eight) hours if needed for severe pain for up to 28 days. Do not start before February 09, 2025. 84 tablet 02/10/20 25 025 Discontinued(R eorder (will not trigger notification to Pharmacy)) semaglutide (Ozempic, 1 MG/DOSE,) 4 MG/3ML solution pen-injectorIn dications:Type 2 diabetes mellitus with hyperglycemia, with long-term current use of insulin (HCC) Inject 1 mg under the skin 1 (one) time per week. 3 mL 1 02/25/20 25 025 Discontinued(R eorder (will not trigger notification to Pharmacy)) Active Problems Problem Noted Date Diagnosed Date Long-term current use of opiate analgesic 2024 Missing teeth, acquired 10/15/2024 Normal oral exam 10/15/2024 History of coronary artery bypass graft x 3 04/2 01/2025 Class 1 obesity 06/24/2024 Advanced periodontitis [...] -compressions stockings 20-30 mmHg requested today to [facility] RN -pt has apt w PCP 12/21/2023 ,if ongoing symptoms and no explanation in blood labs will need to consider to r/o sleep dx,neuropathy associated -advised to f w his cards as well Chronic anemia 05/04/2023 05/04/2023 Coronary arteriosclerosis 05/04/20232022 Overview (03/03/2025): History of CAD with ACS 04/2023 with cardiac catheterization and ARI placed to OM2. He had an echocardiogram 02/22/2024 showing EF 35-40%, grade 1 diastolic dysfunction with regional wall motion abnormality consistent with ischemic cardiomyopathy. (prior echo 08/24/2023 showed EF 51% with inferior and anterior lateral wall motion abnormalities) this led to a nuclear stress test was done on 05/08/2024 which was abnormal, leading to cardiac catheterization on 06/12/2024 showing significant CAD with recommendation for coronary artery bypass grafting. He underwent three-vessel coronary artery bypass grafting on 08/13/2024 and is currently doing well in his recovery. Echocardiogram done 10/29/2024 showed EF 65-70% and no regional wall motion abnormality. Continue cardiac rehab. Continue aspirin indefinitely. Continue atorvastatin and Zetia with ideal LDL goal less than 70. Continue carvedilol. He is not on Entresto due to low blood pressure readings and CKD. On last visit he was taken off Lasix and Aldactone Diabetes mellitus 05/04/2023 05/04/2023 Heart failure with [...] 08/28/202205/04 Chronic kidney disease, stage 4 (severe) (CMS/HC C) 08/08/2022 Hypertension 07/19/2022 Resolved Problems Problem Noted Date Diagnosed Date Resolved Date CKD (chronic kidney disease) , stage III (CMS/HCC) 11/29/2022 05/04/2023 03/07/2024 Controlled type 2 diabetes m ellitus without complication 07/19/2022 03/07/2024 Encounters Date Type Department Care Team Description 03/23/2025 Refill [facility] [address] [place] [address] Rosa Deluca, DamionD Type 2 diabetes mellitus with hyperglycemia, with long-term current use of insulin (HCC) 03/23/2025 Telephone [facility] [address] [place], [place] [phone] Name, MD Joey Referral question 03/23/2025 Travel 03/16/2025 10:00 AM EDT Clinical Support [facility] [address], [place] [phone] Remedios Calderon, KYLER Long-term current use of opiate analgesic (Primary Dx) 03/16/2025 Travel 03/09/2025 Refill [facility] [address] [place] [address] Joey Barreto MD Presence of coronary angioplasty implant and graft 03/09/2025 Refill [facility] [address] [place] [address] Joey Barreto MD Other chronic pain 03/09/2025 Refill [facility] [address] [place] [address] Joey Barreto MD Presence of coronary angioplasty implant and graft 03/09/2025 Refill [facility] [address] [place] [address] Lindsay Toscano MD Presence of coronary angioplasty implant and graft 03/05/2025 Refill [facility] [address] [place] [address] Brea Shahid NP Dietary counseling 03/05/2025 Refill [facility] [address] [place] [address] Joey Barreto MD Dietary counseling 03/03/2025 9:15 AM EDT Office Visit [facility] [address] [place] [phone] Joey Barreto MD Controlled type 2 diabetes mellitus with other circulatory complication, unspecified whether longterm insulin use (CMS/HCC) (Primary Dx); Type 2 diabetes mellitus with chronic kidney disease, without long-term current use of insulin, unspecified CKD stage (CMS/HCC); Encounter for immunization 03/03/2025 Travel 02/24/2025 Telephone [facility] [address] [place] [address] Rosa Deluca, PharmD 02/24/2025 Travel 02/19/2025 Refill [facility] [address] [place] [address] Joey Barreto MD 02/10/2025 Orders Only [facility] [address] [place] [address] Joey Barreto MD Type 2 diabetes mellitus with hypoglycemia without coma, unspecified whether longterm insulin use (CMS/HCC) (Primary Dx) 02/10/2025 Travel 02/06/2025 Telephone [facility] [address] [place] [address] Rosa Deluca, PharmD 02/05/2025 Refill [facility] [address] [place] [address] Joey Barreto MD Other chronic pain 01/28/2025 Orders Only GENERIC EXTERNAL DATA DEPARTMENT Provider, Generic External Data 01/21/2025 Telephone [facility] [address] [place] [address] Rosa Deluca, PharmD 01/21/2025 Travel 01/12/2025 Telephone [facility] [address] [place] [address] Joey Barreto MD Prior Auth Prescription (Pt requesting authorization on sensors , pharmacy explained to pt he needs in order to get sensors ) 01/09/2025 Telephone [facility] [address] [place] [address] Joey Barreto MD Prior Authorization 01/08/2025 Refill [facility] [address] [place] [address] Joey Barreto MD 01/06/2025 Refill [facility] [address] [place], [place] [phone] Joey Barreto MD Other chronic pain 01/01/2025 Refill [facility] [address] [place] [phone] Joey Barreto MD Dietary counseling from Last 3 Months Immunizations Immunization Administration Dates Next Due Hep A, Adult 11/07/2023(Deferred: Patient decision - Reports bad reaction with prior vaccines. Declines all vaccines.) HepB-CpG 06/24/2024,,09/07/2023(Deferr ed: Patient decision) Influenza, seasonal, injecta ble, preservative free 03/03/2025,08/06/2024 Pfizer Covid-19 Vaccine 12+ 05/18/2021 Pfizer Covid-19 [...] housing situation today? I have nga regina 03/03/[address] you li ve. Do you have problems with any of the following? None of the above 03/03/2025 Food Insecurity Answer Date Recorded Within the past 12 months, y ou worried that your food would run out before you got money to buy more: Never True 03/03/2025 Within the past 12 months,th e food you bought just didn't last and you didn't have enough money to get more: Never True Transportation Answer Date Recorded In the past 12 months, has l ack of transportation kept you from medical appts, meetings, work or from getting things needed for daily living? No 03/03/2025 Utilities Answer Date Recorded In the past 12 months, has t he electric, gas, oil or water company threatened to shut off services in your home? No 03/03/2025 Depression Answer Date Recorded Patient Health Questionnaire-2 Score 2 06/06/2024 Internet Access Answer Date Recorded Internet Access Q1 Yes 03/03/2025 Internet Access Q2 Not on file 03/03/2025 Sex and Gender Information Value Date Recorded Sex Assigned at Male 06/23/2022 2:49 PM EST Legal Sex Male 11:12 AM EST Gender Identity Male 06/23/2022 2:49 PM EST Sexual Orientation Don't know 06/23/2022 2: 49 PM EST Last Filed Vital Signs Vital Sign Reading Time Taken Comments Blood Pressure 118/66 03/23/2025 9:07 AM EDT Pulse 80 03/23/2025 9:07 AM EDT Temperature 36.8 C (98.2 F) 03/03/2025 9:11 AM EDT Respiratory Rate 20 03/03/2025 9:11 AM EDT Oxygen Saturation 98% 03/03/2025 9:11 AM EDT Inhaled Oxygen Concentration - - Weight 80 kg (176 lb 6.4 oz) 03/03/2025 9:11 AM EDT Height 165.1 cm (5' 5 ) 03/03/2025 9:11 AM EDT Body Mass Index 29.35 03/03/2025 9:11 AM EDT Plan of Treatment Upcoming Encounters Date Type Department Care Team (Late st Contact Info) Description 06/15/2025 10:30 AM EST Clinical Support [facility] [address] [place] [phone] Remedios Calderon, RN Health Maintenance Due Date Last Done Comments CT Colonography 1960 Colonoscopy 1960 Colorectal Cancer Screening 1960 FIT DNA/Cologuard 1960 FIT 1960 FOBT 1960 HIV Screening 1960 Sigmoidoscopy 1960 Hepatitis C Screening 1978 Dental Prophylaxis 10/08/2024 04/09/2024, 0 10/16/2023, 08/31/2022 Diabetes: Foot Exam 03/07/2025 03/07/2024, 03/07/2024, 03/07/2024, Additional history exists Dental Oral Exam 04/18/2025 10/15/2024, , 08/08/2022 Anal Pap 05/06/2025 05/06/2024 Lipid Panel 06/02/2025 06/02/2024, 04/04, 08/09/2023, Additional history exists Alcohol/Substance Use Screening 06/06/2025 06/06/2024 Depression Screening 06/06/2025 06/06/2024, 06/06/19 Eye Exam 06/18/2025 06/18/2024, 06/04, 06/18/2024, Additional history exists Diabetes: Hemoglobin A1C 07/31/2025 025, 11/07/2024, 07/14/2024, Additional history exists Dental X-Ray: Full Mouth 08/09/2025 08/08/2022 Dental X-Ray: Bitewings 10/16/2025 10/16/19 25, 10/16/2023, 08/08/2022 Disability Screening 11/21/2025 11/21/2024 Tobacco Screening 11/21/2025 11/21/2024 SDOH Screening 03/03/2026 03/03/2025 COVID-19 Vaccine Discontinued 06/07/2022, , 10/06/2020 DTaP/Tdap/Td Vaccines Discontinued 01/01/2024 Pneumococcal Vaccine: 50+ Years Completed 01/07/2024 RSV Patients and Patients Aged 60 years or older Discontinued 05/12/2024 Hepatitis B Vaccines Discontinued 06/24/2024, 01/01/20 24 Zoster Vaccines Discontinued 06/24/2024, 01/07/2024 Influenza Vaccine Discontinued 03/03/2025, 08/06/2024 HIB Vaccines Aged Out No longer [...] Comments POCT TRINITY-14 URINE DRUG SCREEN Routine 03/16/2025 10:10 AM EDT Long-term current use of opiate analgesic POCT GLUCOSE Routine 03/03/2025 9:18 AM EDT Controlled type 2 diabetes mellitus with other circulatory complication, unspecified whether longterm insulin use ([facility]) PSA, TOTAL Routine 01/28/2025 10:16 AM EDT HEMOGLOBIN A1C Routine 01/28/2025 10:16 AM EDT BITEWINGS - 4 RADIOGRAPHIC IMAGES Routine 10/15/2024 [...] Results * POCT TRINITY-14 Urine Drug Screen (03/16/2025 10:10 AM EDT) THC Negative Negative Cocaine Screen, Urine Negative [...] obtained by clean catch procedure / Unknown 03/16/2025 10:10 AM EDT Narrative Remedios Calderon RN - 03/16/2025 10:10 AM EDT UTOX cup Lot#[id number] Exp. 03/10/26 Internal Pass Control Joey Name POINT OF CARE TEST ENTER/EDIT OR DERABLES Final Result * (ABNORMAL) POCT Glucose (03/03/2025 9:18 AM EDT) Glucose Blood, POC 212(A) 60 - 200 mg/dL QC Media Lot # [id number] Lot# Expiration Date Blood Capillary blood specimen / Unknown 03/03/2025 9:18 AM EDT Joey Name POINT OF CARE TEST ENTER/EDIT OR DERABLES Final Result * PSA,Total (01/28/2025 10:16 AM EDT) Prostate Specific Antigen 2.49 <0.05 - 4.0 ng/mL [facility] Comment:PSA methodology: Sadie Weldon i ChemiluminescentMicroparticle Immunoassay (CMIA) 01/28/2025 10:1 6 AM EDT 01/28/2025 10:16 AM EDT Generic External Data Provider LAB BLOOD ORDERAB LES Final Result [facility] [address] [place] [address] [phone] * (ABNORMAL) Hemoglobin A1c (01/28/2025 10:16 AM EDT) Hemoglobin A1c 6.8(H) <6.0 % [facility] Comment:Hemoglobin A1C Refer ence Range Adults: 4.8 - 6.0 % Non diabetic: < 6.0 % Goal: < 7.0 %Additional Action Suggested: > 8.0 %Note: Hemoglobin A1c results are invalid for patients with abnormal amounts of HbF. Blood transfusions may impact the HbA1c concentration in the patient sample. Estimated Average Glucose 148 mg/dL [facility] Comment:eAG = Estimated ave rage glucose which is %A1C expressed asaverage glucose, using the formula of the M5J-AbxmnieLbwyqjt Glucose study (ADAG), Diabetes Care, Vol.31,#8,Jan. 2007 01/28/2025 10:1 6 AM EDT 01/28/2025 10:16 AM EDT us Generic External Data Provider LAB BLOOD ORDERAB LES Final Result Performing Organization Address City/[facility]/ZIP Co de Phone Number [facility] [address] [place] [address] [phone] * (ABNORMAL) Lipid Panel, Standard (06/02/2024 9:33 AM EST) Triglycerides 68 <150 mg/dL [facility] Comment:Desirable Triglyceri de: less than 150 mg/dLBorderline High Triglyceride 150-199 mg/dLHigh Triglyceride: 200-499 mg/dLVery High Triglyceride: greater than or equal to 5OO mg/dL Cholesterol 91 <200 mg/dL [facility] Comment:Desirable Cholestero l: less than 200 mg/dLBorderline High Cholesterol: 200-239 mg/dLHigh Cholesterol: greater than 239 mg/dL LDL Cholesterol Calculated 55 <100 mg/dL [facility] Comment:Desirable LDL: less than 100 mg/dLNear Optimal/Above Optimal LDL: 110- 129 mg/dLBorderline High LDL: 130-159 mg/dLHigh LDL: 160-189 mg/dLVery High LDL: greater than or equal to 190 mg/dL HDL Cholesterol 23(L) >40 mg/dL [facility] Comment:Desirable HDL: great er than 40 mg/dL Note: This HDL assay may give artificially low results in patients with liver disease. 06/02/2024 9:33 AM EST 06/02/2024 9:33 AM EST us Generic External Data Provider LAB BLOOD ORDERAB LES Final Result [facility] [address] [place] [address] [phone] * Cytopath-cell enhanced (05/06/2024 4:37 PM EST) 05/06/2024 4:37 PM EST 05/07/2024 1:25 PM EST Radha [facility] - 05/09/2024 9:42 AM EST ----- ------- Name: DewittEfrain Age/Sex: 63/M : 1960 Unit#: [id number] Attend Dr: Elmira Mcdonald [facility]- Re05/06/24 Status: DEP REF Location: .LAB Disch: ----- ------- SPEC : [id number] RECD: 05/07/24-1324 STATUS: RYAN MELO NUM: [id number] ARPAN: 05/06/24-163 [facility] DR: Elmira Mcdonald [facility]- ENTERED: 05/07/24-1415 SP TYPE: Cytology OTHR DR: Emperatriz Stoll [employer] ORDERED: Cyto-enhanced Diagnosis Urine: Negative for high-grade urothelial carcinoma. See comment. COMMENT: Paucicellular specimen consisting of occasional single urothelial cells with degenerative changes, few squamous cells, red blood cells and occasional lymphocytes. Clinical History Other microscopic hematuria Material Received Urine Gross Description Received is 25 cc of clear yellow fluid from which a ThinPrep slide is prepared. Copies To: Emperatriz Stoll [employer] [address] [place] [address] Elmira Mcdonald [facility] [address] [place] [address] [address]. [address] [place], [place] [phone] [email or web address] ----- ------- Signed (signature on file) Jeanmarie Chavez MD 05/09/24 0942 ----- ------- END OF REPORT us Generic External Data Provider LAB CYTOLOGY SPEEDY DONG Final Result [facility] [address] [place] [phone] from Last 3 Months or Most Recently Relevant to Health Maintenance Insurance [address] [place] [address] [facility] ONE CARE < 65 [facility] Care Teams Hydroelectric Production Technician Relationship Specialty Start Date End Date Name, MD Joey [address] [place] [address] PCP - General Internal Medicine 02/06/24
--- OUTSIDE RECORDS SUMMARY | 2025-04-02 09:42 | XMS_ITS | Encounter Summary ---
Author Organization [employer] Address [address] [place] [address] Care Team Providers Care Assembly Machine Offbearer Name Role Phone Rosa Deluca PharmD Unavailable [phone] NameJoey MD Primary Care Provider [phone] Reason for Visit * Reason Onset Date Comments Appointment Request 08/25/2024 Encounter Details Date Type Department Care Team ([facility] Contact Info) Description 08/25/2024 Telephone [facility] [address] [place] [address] Name, MD Joey [address] [place] [address] Appointment Request Social History Tobacco Use Types [...] 08/25/2024 2:03 PM EDT [place] [facility] [place] Dx: CKD, Chronic Anemia, CAD, S/P [...] Got Surgery done 08/15/24. Contact pt at [phone] documented in this encounter Plan of Treatment Upcoming Encounters Date Type Department Care Team (Late st Contact Info) Description 06/15/2025 10:30 AM EST Clinical Support [address] [address] Yumiko, Remedios, RN documented as of this encounter Goals [...] Time PHQ-9 Depression Total Score: 8 06/06/19 11:44 AM EST documented as of this encounter Care Teams Assembly Machine Offbearer Relationship Specialty Start Date End Date Name, MD Joey [address] [place] [address] PCP - General Internal Medicine 02/06/24 Rosa Deluca PharmD [address] [place] [address] Pharmacist Internal Medicine 12/03/23 03/23/25 documented as of this encounter
--- OUTSIDE RECORDS SUMMARY | 2025-04-02 09:42 | XMS_ITS | Patient Health Record ---
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) Active confirmed Problem Mild recurrent major depression (21536362) Major depressive disorder, recurrent, mild (F33.0) Active confirmed Problem Idiopathic periphera l autonomic neuropathy (09809038) Other idiopathic peripheral autonomic neuropathy (G90.09) Active confirmed Problem Chronic systolic hea rt failure (267314753) Chronic systolic (congestive) heart failure (I50.22) Active confirmed Problem Chronic kidney disea se stage 4 (333491272) Chronic kidney disease, stage 4 (severe) (N18.4) Active confirmed Problem Pure hypercholesterolemia (701167657) Pure hypercholester olemia, unspecified (E78.00) Active confirmed Problem Essential hypertensi on (17877247) Essential hypertension (I10) Active confirmed Plan Of Treatment Pending Test Test Name Order Date ESOPHAGOGASTRODUODENOSCOPY 12/12/2019 COLONOSCOPY AND BIOPSY 12/12/2019 COVID -19 Testing 12/12/2019 Insurance Providers Payer Name Payer Address Payer Phone Subscriber Number Group Number Insured Name Patient Relationship to Insured Coverage Start Date Coverage End Date [employer] [address] [address] [place] [address] [id number] ELAINE FLEMING Self - patient is the [...]
--- OUTSIDE RECORDS SUMMARY | 2025-04-02 09:42 | XMS_ITS | Patient Health Record ---
Author Organization [facility] Address [address] [address] Care Team Providers Care Molecular Physicist Name Role Phone Data, Migration. Unavailable [phone] Reason For Referral No Information Medications Medication [...] Status W/U Status Risk Notes Problem Heartburn (81645867) Heartburn (R12) 08/18/19 Active confirmed NT736-Mdhiwtw rn Problem Acid reflux (916679813) Acid reflux (K21.9) 08/18/19 18 Active confirmed DL521-Uoje reflux Problem Epigastric pain (60693244) Abdominal Pain Epigastric (R10.13) 08/18/19 18 Active confirmed BB999-Vmsxobs al Pain Epigastric Problem Flatulence, eructation and gas pain (109520106) Bloating /gas symptom (R14.0) 08/18/19 18 Active confirmed UQ626-Tncmgrq g /gas symptom Plan Of Treatment No Information Medical (General) History Surgical History Surgery Date(Month/Year) Stent (1) 2017 Eye Surgery (Right) 2017 catheterization 2017
--- OUTSIDE RECORDS SUMMARY | 2025-04-02 09:42 | XMS_ITS | Encounter Summary ---
Author Organization [employer] Address [address] [facility] 7t [place] [address] Care Team Providers Care Student Admissions Clerk Name Role Phone Emperatriz Stoll Primary Care Provider [phone] Rosa Deluca PharmD Unavailable [phone] Name, Joey MERINO Primary Care Provider [phone] Reason for Referral * Consultation (Routine) - Closed Specialty Diagnoses / Procedures Referred By Justina willis Referred To Contact Nutrition Diagnoses Controlled type 2 diabetes mellitus without complication, with long-term current use of insulin (HCC) Emperatriz Stoll FNP [address] [place] [address] Phone: tel: fax: Referral ID Status Reason Start Date Expiration Date V isits Requested Visits Authorized [id number] Closed Specialty Services Required 11/06/2023 11/05/2024 1 1 Encounter Details Date Type Department Care Team (Late st Contact Info) Description 11/06/2023 Orders Only [facility] [address] [place] [address] Emperatriz Stoll FNP [address] [place] [address] Controlled type 2 diabetes mellitus without complication, [...] Description 06/15/2025 10:30 AM EST Clinical Support [facility] [address] [place] [address] Remedios Calderon, RN Scheduled Referrals Name Type Priority Associated Diagnoses Orde r Schedule Referral to Nutrition Therapy Outpatient Referral Routine Controlled type 2 diabetes mellitus without complication, with long-term current use of insulin ([facility]) Expected: 11/06/2023 (Approximate), Expires: 11/05/2024 documented as of this encounter Goals Goal Patient Goal Type Associated Problems Recent Progress Patient-Stated? Author Blood Pressure < 140/90 Blood Pressure 118/66(2024 9:07 AM EDT) No Donald Johnson Hemoglobin A1c < 7.5 Result Component 6.8( 5 10:16 AM EDT) No Donald Johnson documented as of this encounter Visit Diagnoses Diagnosis Controlled type 2 diabetes mellitus without complication, with long-term current use of insulin (HCC)- Primary documented in this encounter Additional Health Concerns Assessment Noted Time PHQ-9 Depression Total Score: 0 12/14/19 23 11:09 AM EDT documented as of this encounter Care Teams Student Admissions Clerk Relationship Specialty Start Date End Date Emperatriz Stoll FNP [address] [place] [address] PCP - General Family Medicine 07/19/22 02/05/24 Name, MD Joey [address] [place] [address] PCP - General Internal Medicine 02/06/24 Rosa Deluca, DamionD [address] [place] [address] Pharmacist Internal Medicine 12/03/23 03/23/25 documented as of this encounter
--- OUTSIDE RECORDS SUMMARY | 2025-04-02 09:42 | XMS_ITS | Patient Health Record ---
Author Organization [facility] Address [address] [facility] [address] [place] [address] Care Team Providers Care Dope Dry House Operator Name Role Phone FAUZIA (ODETTEMICHELLE) VICENTE MERINO [...] 10 mg tablet Take 1 tablet by [facility] once daily orally once a day; [...] day Marital status Blood Transfusions no Place [place] Problems Problem Type SNOMED Code ICD Code Onset Dates Problem Status W/U Status Risk Notes Problem Hyperkalemia (54691912) Hyperkalemia (E87.5) Active confirmed Problem Acidosis (53048976) Metabolic ac idemia (E87.2) Active confirmed Problem Hypertension (26161929) HTN (hypertension) (I10) Active confirmed Problem Coronary artery disease (07472737) CAD (coronary artery disease) (I25.10) Active confirmed Problem Anemia of renal disease (339593109) Anemia of renal disease (D63.1) Active confirmed Problem DM - Diabetes mellitus (69830378) DM (diabetes mellitus) (E11.9) Active confirmed Problem Diabetic retinopathy (7956013) Diabetic retinopathy (E11.319) Active confirmed Problem Hyperphosphatemia (40251998) Hyperphosphatemia (E83.39) Active confirmed Problem Secondary hyperparathyroidism (91976088) Secondary hyperparathyroidism (N25.81) Active confirmed Problem Vitamin D deficiency (49596196) Vitamin D insufficiency (E55.9) Active confirmed Problem Proteinuria (22685182) Proteinuria (R80.9) Active confirmed Problem Hyperlipidemia (94369918) Hyperlipidemia (E78.5) Active confirmed Problem Requires vaccination (838798028) Pneumococcal vaccine administered (Z23) Active confirmed Problem Chronic kidney disease stage 3B (disorder) (360890764) CKD stage G3b/A3, GFR 30-44 and albumin [...] Insured Coverage Start Date Coverage End Date [facility] [address] [address] [place] [address] [id number] ELAINE FLEMING Self - patient is the insured Medicaid Secondary [address] [place], [place] [id number] ELAINE FLEMING Self - patient is the insured 9 Medical (General) History Medical History History ICD Code Hypertension Diabetes High cholesterol Angina Depression Hyperkalemia E87.5 Hypokalemia E87.6 COVID-19 U07.1 Surgical History Surgery Date(Month/Year) Eye Laser Surgery 11/2017 Heart Catherization 11/2017 Heart Catherization w stent placecement 03/2017 Eye surgery 05/2013 cataract surgery , rt 03/2019 Cataract (bilateral) Hospitalization History Reason Date(Month/Year) chest pain [facility] 11/2019
[2025-04-02 10:19] LABS: Parathyroid Hormone Intact 89.2 pg/mL (8.7-77.1)
[2025-04-02 10:24] LABS: Albumin Level 4.4 g/dL (3.5-5.0); Anion Gap 11 (12-20); Blood Urea Nitrogen 27 mg/dL (9-16); Calcium 9.3 mg/dL (8.4-10.2); Carbon Dioxide 28 mmol/L (22-29); Chloride 109 mmol/L (96-108); Estimated Glomerular Filt Rate 30; Magnesium 2.1 mg/dL (1.6-2.6); Potassium 4.7 mmol/L (3.3-5.1); Sodium 143 mmol/L (135-145)
[2025-04-02 11:29] LABS: Appearance Urine Clear; Glucose Urine UA >=1000 mg/dL (Negative); PH 5.0 (5.0-9.0); Specific Gravity - Urine >= 1.030 (1.005-1.025); UMIC TRIGGER UA YES
[2025-04-02 11:50] LABS: Microalbum/Creatinine Ratio Ur 62.8 ug/mg cr (<30); Protein/Creatinine Ratio, Ur 0.21 (<0.2); Total Protein Urine Random 19 mg/dL (<12)
== END 2025-04-02 08:46 | disposition home or self-care (01) ==
LOC: HO.LAB 08:45
PROVIDERS: PCP Internal Medicine Geriatric Medicine; Visit Provider Internal Medicine Nephrology
DX: E11.319 Type 2 diabetes mellitus with unspecified diabetic retinopathy without macular edema (principal); E11.22 Type 2 diabetes mellitus with diabetic chronic kidney disease; N18.4 Chronic kidney disease, stage 4 (severe); N25.0 Renal osteodystrophy
CPT/HCPCS: 36415; 80051; 81001; 82040; 82043; 82306; 82310; 82565; 82570; 83735; 83970; 84100; 84156; 84520; 85025; 97802

== ENCOUNTER 2025-04-02 12:40 | Outpatient (AMB) | payer OTHER, SELFPAY ==
[2025-04-02 12:49] VITALS: BMI 29.0
--- NOTE | 2025-04-02 12:49 | MHC.AMNUTRGE ---
VS Expanded 04/02/25 12:49 04/02/25 12:56 Height 5 ft 5 in 5 ft 5 in Weight 174 lb 6.17 oz 174 lb BMI 29.0 29.0 Intake Visit Reasons: Type 2 diabetes mellitus Allergies No Known Allergies Allergy (Verified 02/04/25 08:42) Nutrition Presentation Details: Pt presents for MNT for T2DM Pt reports typically having B: oatmeal or eggs with wheat bread and water coffee/diet sugar L: 12-2 pm rice/chicken or salad , water dinner fruits, cookies, milk food frequency fish: 1 x/wk fruits: 0-1/d milk: 1-2/d vege: 1/d beverages: water, low sugar physical activity: walking 2x/wk 15-20 minutes BS Monitoring Most Recent Diabetes Results: Microalb/Creat Ratio, (<30) 62.8 ug/mg cr H 04/02/25 Creatinine, (0.5-1.4) 2.25 mg/dL H 04/02/25 BUN, (9-16) 27 mg/dL H 04/02/25 Sodium, (135-145) 143 mmol/L 04/02/25 Potassium, (3.3-5.1) 4.7 mmol/L 04/02/25 Chloride, (96-108) 109 mmol/L H 04/02/25 Carbon Dioxide, (22-29) 28 mmol/L 04/02/25 Calcium, (8.4-10.2) 9.3 mg/dL 04/02/25 AST, (5-37) 28 U/L 10/24/24 ALT, (0-40) 36 U/L 10/24/24 Total Protein, (6.5-8.0) 7.6 g/dL 10/24/24 Albumin, (3.5-5.0) 4.4 g/dL 04/02/25 MZB-Gdxsrkj-Bb.Jeor Equation Height: 5 ft 5 in Weight: 174 lb Resting Metabolic Rate: 1510.46 Calculated Activity Level: Sedentary Calories Needed to Maintain Weight: 1812.55 Diagnosis Nutrition problem #1: food nutri know defi As related to (etiology) #1: diagnosis As evidenced by (sign/symptom) #1: knowledge deficit of diet PFSH Medical History ACS (acute coronary syndrome) Diabetic retinopathy Diabetes Hypertension CKD (chronic kidney disease) Exertional chest pain Smoker Surgical History Hx of CABG Stented coronary artery Hx of cardiac catheterization Family History Mother No problems noted. Father No problems noted. Social History e-Cigarette/Vaping Use: Never Used Current occupational status: unemployed Cognitive needs: No Hearing needs: No Vision needs: Yes (wears glasses) Assessment & Plan Assessment & Plan (1) Diabetic retinopathy: Code(s): E11.319 - Type 2 diabetes mellitus with unspecified diabetic retinopathy without macular edema Category: Medical Plan: current wt: 79 kg ( 03/28 ) est kcal needs as per MSJ: 1800 est protein needs as per 1 g/kg BW: 80 est fluid needs as per 30 ml/kg BW: 2400 Recommended fiber > 12 g /day and gradually increase up to 25-28 g /day or as tolerated Nutrition topics discussed : Reviewed (R), Pt verbalized understanding (V) , not applicable (N/A) R, : Healthy Plate Method Concept: R, : Carbohydrates: food sources of carbohydrates, relationship of carbohydrates to blood glucose, fatty liver GI health. Recommended total amount of carbohydrates per meals and snack. Differences between simple carbohydrates and complex carbohydrates R, V, N/A: Lean protein foods including vegan , vegetarian sources of protein. Benefits of protein (including but not limited to healing, nutritional value , benefits in weight loss, glucose control R, : Fats : Source of fats, benefits of fats. Difference between saturated and unsaturated fats. Saturated fats and its contribution to inflammation R, V, N/A: Fiber: food sources and role of fiber in the diet (including but not limited to its role as a prebiotic, benefits in constipation, role in IBS , role in glucose control and cholesterol level) R, V, N/A: Hydration: role of hydration and prevention of dehydration or over hydration. Foods and water content. R, V, N/A: Vitamins and Minerals in foods and supplements R, V, N/A: Interpreting food labels, including serving size, macronutrients, vitamins, minerals, allergens, ingredient list , % daily value Patient Instructions: Follow healthy plate method at dinner (selma chavez metodo del plato saludable en la mireya ) Limit the bedtime snack to a couple yogurt or half a sandwich and water (Limite lujan merienda a un yogurt o 1/2 sandwich) Keep hydrated by having water, or herbal or fruit infused flavored water Coding Level of Care Code Nutr Indiv Intake (63642) Diagnoses Diabetic retinopathy E11.319 Time Spent (min) 30
[2025-04-13 12:26] VITALS: BMI 29.0
== END 2025-04-02 13:28 | disposition home or self-care (01) ==
LOC: HO.ENCR 12:41
PROVIDERS: PCP Nurse Practitioner Family; Visit Provider Dietitian, Registered
DX: E11.319 Type 2 diabetes mellitus with unspecified diabetic retinopathy without macular edema (principal)

== ENCOUNTER 2025-04-14 09:39 | Outpatient (AMB) | payer OTHER, SELFPAY ==
[2025-04-14 09:43] VITALS: BP 110/62; PULSE 95; BMI 28.9
--- NOTE | 2025-04-14 09:43 | A.OFFVIS_ITS ---
Vital Signs 04/14/25 09:43 Height 5 ft 5 in Weight 173 lb 11.588 oz BMI 28.9 BP 110/62 Blood Pressure Location Rt brachial Position Sitting Pulse 95 Pulse Source Pulse Oximeter Intake Visit Reasons: 3 mth f/up Tools Administrator Required: Yes Tools Administrator Name: beau Allergies No Known Allergies Allergy (Verified 04/14/25 09:46) Medication List - Last Reconciled 04/14/25 by Marci Nova NP-C ascorbic acid (vitamin C) (Vitamin C) 500 mg PO DAILY aspirin (Pilar Low Dose Aspirin) 81 mg PO DAILY atorvastatin 80 mg PO QAM blood sugar diagnostic ([employer] Ultra Test strips) As directed carvedilol 3.125 mg PO BID clopidogrel 75 mg PO DAILY dapagliflozin propanediol (Farxiga) 10 mg PO DAILY 30 days ezetimibe (Zetia) 10 mg PO DAILY folic acid 1 mg PO DAILY gabapentin 300 mg PO ONCE semaglutide (Ozempic) 0.5 mg subcut QWEEK tadalafil (Cialis) 10 mg PO .PRN PRN 30 days HPI HPI 3 mth f/up: Details: Efrain is a 63-year-old male with past medical history of hypertension, hyperlipidemia, diabetes, chronic kidney disease, prior smoking, CAD with ACS 04/2023 with ARI to OM2 who recently had abnormal stress test and underwent cardiac catheterization showing significant three-vessel coronary artery disease. He was referred to Cardiac surgery and underwent a three-vessel coronary artery bypass grafting on 08/13/2024. Today he reports that he has been feeling well overall with no concerning symptoms. He denies chest discomfort at rest or with activity. No shortness of breath, PND, orthopnea or edema. No heart palpitations, presyncope, syncope. He has not been exercising but is talking about joining a gym. Taking his medications as directed. 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 [facility] Medical History ACS (acute coronary syndrome) Diabetic retinopathy Diabetes Hypertension CKD (chronic kidney disease) Exertional chest pain Smoker Surgical History Hx of CABG Stented coronary artery Hx of cardiac catheterization Family History Mother No problems noted. Father No problems noted. Social History e-Cigarette/Vaping Use: Never Used Current occupational status: unemployed Cognitive needs: No Hearing needs: No Vision needs: Yes (wears glasses) Review of Systems Const All systems reviewed & are unremarkable except as noted in HPI and below ENT Denies dizziness Card Denies chest pain, Denies chest pain at rest, Denies chest pain with activity, Denies rapid heart rate, Denies pedal edema, Denies edema, Denies leg edema, Denies lightheadedness, Denies palpitations, Denies dyspnea, Denies dyspnea on exertion and Denies orthopnea Resp Denies cough, Denies dyspnea and Denies dyspnea on exertion GI Denies hematochezia and Denies change in stool character Musc Denies abnormal gait, Denies limited range of motion, Denies muscle cramps, Denies muscle weakness, Denies numbness, Denies radiating pain into limb, Denies stiffness and Denies tingling Neuro Denies abnormal gait, Denies dizziness, Denies numbness and Denies tingling Endo Denies palpitations Physical Exam Vital Signs: Last Vital Signs Pulse 95 04/14/25 09:43 BP 110/62 04/14/25 09:43 BMI result Body Mass Index 28.9 Const General: cooperative, healthy appearing, comfortable and no acute distress Orientation/consciousness: patient oriented x3 Neck Neck: Yes normal visual inspection and Yes no JVD Chest Other: sternal scar well healed. Resp Effort & Inspection: normal respiratory effort Auscultation: clear to auscultation bilaterally, no crackles, no rales, no rhonchi and no wheezes Cardio Jugular venous distension: no JVD Rate: regular rate Rhythm: regular rhythm Heart sounds: S1 normal heart sound present, S2 normal heart sound present, no murmurs and no rubs Neuro General: patient oriented x3 Extrem General: Yes normal to inspection and No no pedal edema Psych Appearance: grossly normal Mental Status: mental status grossly normal Speech and movement: Normal speech and movement present Assessment & Plan Assessment & Plan (1) CAD (coronary artery disease): Code(s): I25.10 - Atherosclerotic heart disease of [place] coronary artery without angina pectoris Category: Medical Plan: History of CAD with ACS 04/2023 with cardiac catheterization and ARI placed to OM2. He had an echocardiogram 02/22/2024 showing EF 35-40%, grade 1 diastolic dysfunction with regional wall motion abnormality consistent with ischemic cardiomyopathy. (prior echo 08/24/2023 showed EF 51% with inferior and anterior lateral wall motion abnormalities) this led to a nuclear stress test was done on 05/08/2024 which was abnormal, leading to cardiac catheterization on 06/12/2024 showing significant CAD with recommendation for coronary artery bypass grafting. He underwent three-vessel coronary artery bypass grafting on 08/13/2024. Echocardiogram done 10/29/2024 showed EF 65-70% and no regional wall motion abnormality. He attended cardiac rehab. Currently asymptomatic. Continue aspirin indefinitely. Continue Plavix for at least 1 year post surgery. Continue atorvastatin and Zetia with ideal LDL goal less than 70. Continue carvedilol. He is not on Entresto due to low blood pressure readings and CKD. Cardiology follow-up 6 months, sooner if needed. (2) S/P CABG x 3: Comment: 08/15/24 WATTERS to LAD, SVG to PDA, RA to OM Code(s): Z95.1 - Presence of aortocoronary bypass graft Category: Surgical Plan: As above (3) S/P cardiac catheterization: Comment: 06/12/2024, left main normal, lad mid 70% stenosis, IFR 0.83, OM1 ISR 90%, OM2 stent present, proximal RCA 35% stenosis, right PDA 85% stenosis, Coronary artery bypass grafting referral made Code(s): Z98.890 - Other specified postprocedural states Category: Surgical (4) Cardiomyopathy: Code(s): I42.9 - Cardiomyopathy, unspecified Category: Medical Plan: Echo 02/2024 with new cardiomyopathy. He has since undergone three-vessel coronary artery bypass grafting and repeat echocardiogram showing normalization of EF. No signs of heart failure on examination. He is not requiring diuretics. He continues on carvedilol and Farxiga. (5) Stented coronary artery: Comment: April 2023 present with acute coronary syndrome undergoing drug-eluting stent to OM2 for 95% stenosis. Mild disease in RCA and LAD. 85% lesion in the proximal section RPDA Code(s): Z95.5 - Presence of coronary angioplasty implant and graft Category: Surgical (6) Hypertension: Code(s): I10 - Essential (primary) hypertension Category: Medical Plan: Blood pressure goal less than 130/80. Blood pressure 110/62. Continue carvedilol. (7) Hyperlipidemia: Code(s): E78.5 - Hyperlipidemia, unspecified Category: Medical Plan: LDL goal less than 70, ideally less than 55. Labs done 07/22/2024 showed LDL 41. Continue atorvastatin and Zetia. Will have him update labs prior to next visit. Plan Time spent on chart review, documentation, interviewed assessment Orders: Orders Comprehensive Met. Panel 5 Months E78.5 - Hyperlipidemia, unspecified, Z95.1 - Presence of aortocoronary bypass graft Lipid Panel 5 Months E78.5 - Hyperlipidemia, unspecified, Z95.1 - Presence of aortocoronary bypass graft Coding Level of Care Code Est Pt Level 4 (93573) Complex EM visit Add On G2211 Diagnoses CAD (coronary artery disease) I25.10 S/P CABG x 3 Z95.1 S/P cardiac catheterization Z98.890 Cardiomyopathy I42.9 Stented coronary artery Z95.5 Hypertension I10 Hyperlipidemia E78.5 Time Spent (min) 28
--- OUTSIDE RECORDS SUMMARY | 2025-04-14 10:50 | XMS_ITS | Encounter Summary ---
Author Organization [employer] Address [address] [place] [address] [address] [place] [address] Care Team Providers Care Barbering Instructor Name Role Phone Rosa Deluca PharmD Unavailable [phone] Name, Joey MERINO Primary Care Provider [phone] Encounter Details Date Type Department Care Team ([facility] st Contact Info) Description 12/09/2024 Refill [facility] [address] [place] [address] Lindsay Toscano MD [address] [place] [address] Social History Tobacco Use Types Packs/Day Years [...] Description 06/15/2025 10:30 AM EST Clinical Support [facility] [address] [place] [address] Remedios Calderon, RN documented as of this [...] documented as of this encounter Care Teams Barbering Instructor Relationship Specialty Start Date End Date Name, MD Joey [address] [place] [address] PCP - General Internal Medicine 02/06/24 Rosa Deluca, Martha [address] [place] [address] Pharmacist Internal Medicine 12/03/23 03/23/25 documented as of this encounter
--- OUTSIDE RECORDS SUMMARY | 2025-04-14 10:50 | XMS_ITS | Clinical Summary ---
Author Organization [employer] Address [address] 7[address] [place] [address] Care Team Providers Care Sewer Pipe Press Operator Name Role Phone Name, Joey MERINO Primary Care Provider [phone] Allergies No known active allergies Medications albuterol [...] MORNING 30 tablet 2 03/05/20 25 Active aspirin (Aspirin Low Dose) 81 [...] hyperglycemia, with long-term current use of insulin ([facility]) 1 each every 8 (eight) hours. 2 each 03/23/20 25 Active Farxiga 10 MGIndications: Type 2 diabetes mellitus with hyperglycemia, with long-term current use of insulin ([facility]) Take 1 tablet (10 mg) by mouth Once per day. 90 tablet 3 03/23/20 25 026 Active glucose blood (FreeStyle Precision Virgil Test) test stripIndicatio ns:Type 2 diabetes mellitus with hyperglycemia, with long-term current use of insulin (HCC) Use to test blood sugar every 8 hours as directed 100 each 11 03/23/20 25 026 Active glucose 4 g chewable tabletIndicati ons:Type 2 diabetes mellitus with hyperglycemia, with long-term current use of insulin ([facility]) Chew 4 tablets (16 g) if needed for low blood sugar. 50 tablet 12 03/23/20 25 Active semaglutide (Ozempic, 1 MG/DOSE,) 4 MG/3ML solution pen-injectorIn dications:Type 2 diabetes mellitus with hyperglycemia, with long-term current use of insulin ([facility]) Inject 1 mg under the skin 1 (one) time per week. 3 mL 1 03/23/20 25 Active tamsulosin (Flomax) 0.4 MG 24 hr capsule TAKE 1 CAPSULE BY MOUTH AT BEDTIME 30 capsule 5 04/08/20 25 Active gabapentin (Neurontin) 300 MG capsule TAKE 1 CAPSULE BY MOUTH EVERY MORNING 30 capsule 04/08/20 25 Active traMADol (Ultram) 50 MG tabletIndicati ons:Other chronic pain TAKE 1 TABLET BY MOUTH EVERY 8 HOURS NEEDED FOR SEVERE PAIN 84 tablet 04/09/20 25 Active Farxiga 10 MGIndications: Controlled type 2 diabetes mellitus without complication, unspecified whether rodent exterminator insulin use Take 1 tablet (10 mg) by mouth Once per day. 90 tablet 3 06/24/19 025 Discontinued(R eorder (will not trigger notification to Pharmacy)) glucose 4 g chewable tabletIndicati ons:Type 2 diabetes mellitus with hyperglycemia, with long-term current use of insulin ([facility]) Chew 4 tablets (16 g) if needed for low blood sugar. 50 tablet 12 10/08/19 025 Discontinued(R eorder (will not trigger notification to Pharmacy)) glucose blood (FreeStyle Precision Virgil Test) test stripIndicatio ns:Type 2 diabetes mellitus with hyperglycemia, with long-term current use of insulin ([facility]) Use to test blood sugar every 8 hours as directed 100 each 10/08/19 025 Discontinued(R eorder (will not trigger notification to Pharmacy)) Continuous Glucose Sensor (FreeStyle Sarina 2 Plus Sensor) miscIndication s:Type 2 diabetes mellitus with hyperglycemia, with long-term current use of insulin ([facility]) 1 each every 8 (eight) hours. 2 each 01/22/20 025 Discontinued(R eorder (will not trigger notification [...] MOUTH AT BEDTIME 30 capsule 03/10/20 25 025 Discontinued gabapentin (Neurontin) 300 MG capsule TAKE 1 CAPSULE BY MOUTH EVERY MORNING 30 capsule 03/10/20 25 025 Discontinued traMADol (Ultram) 50 MG tabletIndicati ons:Other chronic pain Take 1 tablet (50 mg) by mouth every 8 (eight) hours if needed for severe pain for up to 28 days. Do not start before March 11, 2025. 84 tablet 03/11/20 25 025 Discontinued Active Problems Problem Noted Date Diagnosed [...] -compressions stockings 20-30 mmHg requested today to [facility] RN -pt has apt w PCP [...] CKD (chronic kidney disease) , stage III (CMS/[facility]) 11/29/2022 05/04/2023 03/07/2024 Controlled type 2 diabetes jennifer cardenas without complication 07/19/2022 03/07/2024 Encounters Date Type Department Care Team Description 04/08/2025 Refill [facility] [address] [place] [address] Joey Barreto MD Other chronic pain 04/07/2025 Refill [facility] [address] [place] [address] Joey Barreto MD 03/23/2025 Refill [facility] [address] [place] [address] Rosa Deluca, PharmD Type 2 diabetes mellitus with hyperglycemia, with long-term current use of insulin ([facility]) 03/23/2025 Telephone [facility] [address] [place] [address] Joey Barreto MD Referral question 03/23/2025 Travel 03/16/2025 10:00 AM EDT Clinical Support [facility] [address] [place] [address] Remedios Calderon RN Long-term current use of opiate analgesic (Primary Dx) 03/16/2025 Travel 03/09/2025 Refill [facility] [address] [place] [address] Joey Barreto MD Presence of coronary angioplasty implant and graft 03/09/2025 Refill [facility] [address] [place], [place] [phone] Joey Barreto MD Other chronic pain 03/09/2025 Refill [facility] [address] [place], [place] [phone] Joey Barreto MD Presence of coronary angioplasty implant and graft 03/09/2025 Refill [facility] [address] [facility] [place] [address] Lindsay Toscano MD Presence of coronary angioplasty implant and graft 03/05/2025 Refill [facility] [address] [facility] [place] [address] Brea Shahid NP Dietary counseling 03/05/2025 Refill [facility] [address] [place] [address] Joey Barreto MD Dietary counseling 03/03/2025 9:15 AM EDT Office Visit [facility] [address] [facility] [place] [place] [address] Joey Barreto MD Controlled type 2 diabetes mellitus with other circulatory complication, unspecified whether shelter insulin use (CMS/HCC) (Primary Dx); Type 2 diabetes mellitus with chronic kidney disease, without long-term current use of insulin, unspecified CKD stage (CMS/HCC); Encounter for immunization 03/03/2025 Travel 02/24/2025 Telephone [facility] [address] [place] [address] Rosa Deluca, PharmD 02/24/2025 Travel 02/19/2025 Refill [facility] [address] [place] [address] Joey Barreto MD 02/10/2025 Orders Only [facility] [address] [place] [address] Joey Barreto MD Type 2 diabetes mellitus with hypoglycemia without coma, unspecified whether shelter insulin use (CMS/HCC) (Primary Dx) 02/10/2025 Travel 02/06/2025 Telephone [facility] [address] [place] [address] Rosa Deluca, PharmD 02/05/2025 Refill [facility] [address] [place] [address] Joey Barreto MD Other chronic pain 01/28/2025 Orders Only GENERIC EXTERNAL DATA DEPARTMENT Provider, Generic External Data 01/21/2025 Telephone [facility] [address] [place] [address] Rosa Deluca, PharmD 01/21/2025 Travel 01/12/2025 Telephone [facility] [address] [place], [place] [phone] Name, MD Joey Prior Auth Prescription (Pt requesting authorization on sensors , pharmacy explained to pt he needs in order to get sensors ) from Last 3 Months Immunizations Immunization Administration [...] housing situation today? I have nga tapia 03/03/[address] you li [...] Clinical Support [facility] [address] [place], [place] [phone] Remedios Calderon, RN Health Maintenance Due Date [...] mellitus with other circulatory complication, unspecified whether rodent exterminator insulin use ([facility]) PSA, TOTAL Routine 01/28/2025 10:16 AM [...] - 03/16/2025 10:10 AM EDT UTOX cup Lot#[id number] Exp. 03/10/26 Internal Pass Control us Joey Barreto MD POINT OF CARE TEST ENTER/EDIT OR DERABLES Final Result * (ABNORMAL) POCT Glucose (03/03/2025 9:18 AM EDT) Pathologist [facility] Glucose Blood, POC 212(A) 60 - 200 mg/dL QC Media Lot # [id number] Lot# Expiration Date Blood Capillary blood specimen / Unknown 03/03/2025 9:18 AM EDT us Joey Barreto MD POINT OF CARE TEST ENTER/EDIT OR DERABLES Final Result * PSA,Total (01/28/2025 10:16 AM EDT) Pathologist [facility] Prostate Specific Antigen 2.49 <0.05 - 4.0 ng/mL [facility] Comment:PSA methodology: Abb jose cruz Alijoety i ChemiluminescentMicroparticle Immunoassay (CMIA) 01/28/2025 10:1 6 AM EDT 01/28/2025 10:16 AM EDT Generic External Data Provider LAB BLOOD ORDERAB LES Final Result Performing Organization Address [facility] Co de Phone Number [facility] [address] [place] [phone] * (ABNORMAL) Hemoglobin A1c (01/28/2025 10:16 AM EDT) Hemoglobin A1c 6.8(H) <6.0 % [facility] Comment:Hemoglobin A1C Refer ence Range Adults: 4.8 - 6.0 % Non diabetic: < 6.0 % Goal: < 7.0 %Additional Action Suggested: > 8.0 %Note: Hemoglobin A1c results are invalid for patients with abnormal amounts of HbF. Blood transfusions may impact the HbA1c concentration in the patient sample. Estimated Average Glucose 148 mg/dL [facility] Comment:eAG = Estimated ave rage glucose which is %A1C expressed asaverage glucose, using the formula of the U6R-JbljwfgGkoemas Glucose study (ADAG), Diabetes Care, Vol.31,#8,Jan. 2007 01/28/2025 10:1 6 AM EDT 01/28/2025 10:16 AM EDT us Generic External Data Provider LAB BLOOD ORDERAB LES Final Result Performing Organization Address [facility] Co de Phone Number [facility] [address] [place] [phone] * (ABNORMAL) Lipid Panel, Standard (06/02/2024 9:33 AM EST) Triglycerides 68 <150 mg/dL [facility] Comment:Desirable Triglyceri de: less than 150 mg/dLBorderline High Triglyceride 150-199 mg/dLHigh Triglyceride: 200-499 mg/dLVery High Triglyceride: greater than or equal to 5OO mg/dL Cholesterol 91 <200 mg/dL [facility] Comment:Desirable Cholestero l: less than 200 mg/dLBorderline High Cholesterol: 200-239 mg/dLHigh Cholesterol: greater than 239 mg/dL LDL Cholesterol Calculated 55 <100 mg/dL [facility] Comment:Desirable LDL: less than 100 mg/dLNear Optimal/Above Optimal LDL: 110- 129 mg/dLBorderline High LDL: 130-159 mg/dLHigh LDL: 160-189 mg/dLVery High LDL: greater than or equal to 190 mg/dL HDL Cholesterol 23(L) >40 mg/dL [facility] Comment:Desirable HDL: great er than 40 mg/dL Note: This HDL assay may give artificially low results in patients with liver disease. 06/02/2024 9:33 AM EST 06/02/2024 9:33 AM EST us Generic External Data Provider LAB BLOOD ORDERAB LES Final Result Performing Organization Address City/State/[facility] Co de Phone Number [facility] [address] [place] [phone] * Cytopath-cell enhanced (05/06/2024 4:37 PM EST) 05/06/2024 4:37 PM EST 05/07/2024 1:25 PM EST Narrative [facility] - 05/09/2024 9:42 AM EST ----- ------- Name: Efrain Dewitt Age/Sex: 63/M : 1960 Unit#: [id number] Attend Dr: Elmira Mcdonald [facility]- Re05/06/24 Status: DEP REF Location: .LAB Disch: ----- ------- SPEC : [id number] RECD: 05/07/24 STATUS: RYAN MELO NUM: [id number] ARPAN: 05/06/24 [facility] DR: Elmira Mcdonald [facility]- ENTERED: 05/07/24 SP TYPE: Cytology OTHR DR: Emperatriz Stoll NP ORDERED: Cyto-enhanced Diagnosis [...] slide is prepared. Copies To: Emperatriz Stoll TAPE FASTENER MACHINE OPERATOR [address] [place] [address] Elmira Mcdonald [facility] [address] [place], [place] [address] [address] [place] [address] [email or web address] ----- ------- Signed (signature on file) Jeanmarie Chavez MD 05/09/24 0942 ----- ------- END OF REPORT us Generic External Data Provider LAB CYTOLOGY AMYSerg DONG Final Result [facility] [address] [place] [address] [phone] from Last 3 Months or Most Recently Relevant to Health Maintenance Insurance [facility] < [address] [facility] [place] [address] [place] [address] Care Teams Sewer Pipe Press Operator Relationship Specialty Start Date End Date Name, MD Joey [address] [place] [address] PCP - General Internal Medicine 02/06/24
--- OUTSIDE RECORDS SUMMARY | 2025-04-14 10:50 | XMS_ITS | Encounter Summary ---
Author Organization [employer] Address [address] [place] [address] Care Team Providers Care Data Operations Leader Name Role Phone Rosa Deluca PharmD Unavailable [phone] Name, Joey MERINO Primary Care Provider [phone] Reason for Visit * Reason Comments Med Refill Encounter Details Date Type Department Care Team ([facility] st Contact Info) Description 12/09/2024 Refill [facility] [address] [place], [place] [phone] Name, MD Joey [address] [place] [address] Social History Tobacco Use Types Packs/Day Years [...] 06/15/2025 10:30 AM EST Clinical Support [facility] MEDICINE [address] [place] [address] Remedios Calderon RN documented as of this [...] documented as of this encounter Care Teams Data Operations Leader Relationship Specialty Start Date End Date Name, MD Joey [address] [place] [address] PCP - General Internal Medicine 02/06/24 Rosa Deluca PharmD [address] [place] [address] Pharmacist Internal Medicine 12/03/23 03/23/25 documented as of this encounter
--- OUTSIDE RECORDS SUMMARY | 2025-04-14 10:50 | XMS_ITS | Encounter Summary ---
Author Organization [employer] Address [address] [place] [address] Care Team Providers Care Janitor Name Role Phone Emperatriz Stoll Primary Care Provider [phone] Rosa Deluca PharmD Unavailable [phone] Name, Joey MERINO Primary Care Provider [phone] Reason for Visit * Reason Comments Med Refill Encounter Details Date Type Department Care Team (Late st Contact Info) Description 01/12/2023 Refill [facility]INE [address] [place] [address] Emperatriz Stoll FNP [address] [place] [address] Other chronic pain Social History Tobacco Use [...] Description 06/15/2025 10:30 AM EST Clinical Support [facility] MEDICINE [address] [place] [address] Remedios Calderon, RN documented as of this encounter Visit Diagnoses Diagnosis Other chronic pain documented in this encounter Additional Health Concerns Assessment Noted Time PHQ-9 Depression Total Score: 0 12/14/19 11:09 AM EDT documented as of this encounter Care Teams Janitor Relationship Specialty Start Date End Date Emperat[place] [address] PCP - General Family Medicine 07/19/22 02/05/24 Mary Lou, MD Joey [address] [place] [address] PCP - General Internal Medicine 02/06/24 Rosa Deluca, Martha [address] [place] [address] Pharmacist Internal Medicine 12/03/23 03/23/25 documented as of this encounter
--- OUTSIDE RECORDS SUMMARY | 2025-04-14 10:50 | XMS_ITS | Encounter Summary ---
Author Organization [employer] [facility] Address [address] 7t [place] [address] Care Team Providers Care Poultry Dresser Name Role Phone Emperatriz Stoll Primary Care Provider [phone] Rosa Deluca PharmD Unavailable [phone] Name, Joey MERINO Primary Care Provider [phone] Encounter Details Date Type Department Care Team ([facility] Contact Info) Description 10/20/2022 Orders Only [facility] MEDICINE [address] [place] [address] Emperatriz Stoll FNP [address] [place] [address] Other chronic pain Social History Tobacco Use [...] Description 06/15/2025 10:30 AM EST Clinical Support [facility] [address] [place] [address] Remedios Calderon RN documented as of this encounter Procedures Procedure Name Priority Date/Time Associated Diagnosis Comments XR CHEST 2 VIEWS Routine 11/17/2022 4:30 PM EDT documented in this encounter Results * XR Chest 2 Views (11/17/2022 4:30 PM EDT) Anatomical Region Laterality Modality Chest Radiographic Mony ging 11/17/2022 4:30 PM EDT Narrative 11/24/2022 2:21 PM EDT [address] [address] XRay Report Signed Patient: Efrain Dewitt MR#: [id number] : 1960 Acct:[id number] Age/Sex: 61 / M ADM Date: 11/17/22 [facility]: Emperatriz Stoll SCALLOP SHUCKER Ordering Physician: Emperatriz Stoll NP Date of Service: 11/17/22 Procedure(s): XR chest 2V Accession Number(s): [id number] cc: Emperatriz Stoll SCALLOP SHUCKER EXAMINATION: XR CHEST CLINICAL INFORMATION: Bilateral lower [...] in OV> 11/24/22 1418 DD/ 1630 TD/TT: Biological Technical Officer: DAVID Procedure Note Donotuseinterpreter, Image - 11/29/[address] [address] XRay Report Signed Patient: Efrain DewittMR#: [id number] : 1960cct:[id number] Age/Sex: 61 / MADM Date: 11/17/22 Loc: HO.[facility] Attending Dr: Emperatriz Stoll SCALLOP SHUCKER Ordering Physician: Emperatriz Stoll NP Date of Service: 11/17/22 Procedure(s): XR chest 2V Accession Number(s): [id number] cc: Emperatriz Stoll SCALLOP SHUCKER EXAMINATION: XR CHEST CLINICAL INFORMATION: Bilateral lower [...] in OV> 11/24/22 1418 DD/ 1630 TD/TT: Biological Technical Officer: DAVID [facility] External Provider IMG XR PROCEDURES Final Result documented in this encounter Visit Diagnoses Diagnosis Other chronic pain documented in this encounter Additional Health Concerns Assessment Noted Time PHQ-9 Depression Total Score: 7 07/19/19 3:07 PM EST documented as of this encounter Care Teams Poultry Dresser Relationship Specialty Start Date End Date Emperatriz Stoll FNP [address] [place] [address] PCP - General Family Medicine 07/19/22 02/05/24 Joey Barreto MD [address] [place] [address] PCP - General Internal Medicine 02/06/24 Rosa Deluca PharmD [address] [place] [address] Pharmacist Internal Medicine 12/03/23 03/23/25 documented as of this encounter
--- OUTSIDE RECORDS SUMMARY | 2025-04-14 10:50 | XMS_ITS | Encounter Summary ---
Author Organization [employer] Address [address] 7[address] [place] [address] Care Team Providers Care Filterer Name Role Phone Emperatriz Stoll Primary Care Provider [phone] Rosa Deluca PharmD Unavailable [phone] Name, Joey MERINO Primary Care Provider [phone] Reason for Visit * Reason Comments Med Refill Encounter Details Date Type Department Care Team ([facility] st Contact Info) Description 05/01/2023 Refill [facility] MED[facility]INE [address] [place] [address] Emperatriz Stoll FNP [address] [place] [address] Primary hypertension Social History Tobacco Use Types [...] Description 06/15/2025 10:30 AM EST Clinical Support [facility] MEDICINE [address] [place] [address] Remedios Calderon RN documented as of this [...] documented as of this encounter Care Teams Filterer Relationship Specialty Start Date End Date Emperatriz Stoll FNP [address] [place] [address] PCP - General Family Medicine 07/19/22 02/05/24 Joey Barreto MD [address] [place] [address] PCP - General Internal Medicine 02/06/24 Rosa Deluca, Martha [address] [place] [address] Pharmacist Internal Medicine 12/03/23 03/23/25 documented as of this encounter
--- OUTSIDE RECORDS SUMMARY | 2025-04-14 10:50 | XMS_ITS | Encounter Summary ---
Author Organization [employer] Address [address] [place] [address] 7t [place] [address] Care Team Providers Care Service Mechanic Name Role Phone Rosa Deluca PharmD Unavailable [phone] Name, Joey MERINO Primary Care Provider [phone] Reason for Visit * Reason Comments Med Refill Encounter Details Date Type Department Care Team ([facility] st Contact Info) Description 12/09/2024 Refill [facility] [address] [place] [address] Lindsay Toscano MD [address] [place] [address] Social History Tobacco Use Types Packs/Day Years [...] Description 06/15/2025 10:30 AM EST Clinical Support [facility] MEDICINE [address] [place] [address] Remedios Calderon RN documented as of this [...] documented as of this encounter Care Teams Service Mechanic Relationship Specialty Start Date End Date Name, MD Joey [address] [place] [address] PCP - General Internal Medicine 02/06/24 Rosa Deluca PharmD [address] [place] [address] Pharmacist Internal Medicine 12/03/23 03/23/25 documented as of this encounter
--- OUTSIDE RECORDS SUMMARY | 2025-04-14 10:50 | XMS_ITS | Encounter Summary ---
Author Organization [employer] Address [address] [place] [address] Care Team Providers Care Home Care Provider Name Role Phone Name, Joey MERINO Primary Care Provider [phone] Reason for Visit * Reason Comments Med Refill Encounter Details Date Type Department Care Team ([facility] Contact Info) Description 04/08/2025 Refill [facility] [address] [place], [place] [phone] Name, MD Joey [address] [place] [address] Other chronic pain Social History Tobacco Use [...] 10:30 AM EST Clinical Support [facility] MEDICINE [address] [place] [address] Remedios Calderon RN documented as of this [...] as of this encounter Care Teams Home Care Provider Relationship Specialty Start Date End Date Name, MD Joey [address] [place] [address] PCP - General Internal Medicine 02/06/24 documented as of this encounter
--- OUTSIDE RECORDS SUMMARY | 2025-04-14 10:50 | XMS_ITS | Encounter Summary ---
Author Organization [employer] Address [address] [place] [address] Care Team Providers Care Computer Networking Instructor Adjunct Name Role Phone Emperatriz Stoll Primary Care Provider [phone] Rosa Deluca PharmD Unavailable [phone] Name, Joey MERINO Primary Care Provider [phone] Encounter Details Date Type Department Care Team (Late st Contact Info) Description 04/06/2023 Orders Only [facility] [address] [place] [address] Emperatriz Stoll FNP [address] [place] [address] Social History Tobacco Use Types Packs/Day Years [...] 10:30 AM EST Clinical Support [facility] MEDICINE [address] [place] [address] Remedios Calderon RN documented as of this [...] documented as of this encounter Care Teams Computer Networking Instructor Adjunct Relationship Specialty Start Date End Date Emperatriz Stoll FNP [address] [place] [address] PCP - General Family Medicine 07/19/22 02/05/24 Joey Barreto MD [address] [place] [address] PCP - General Internal Medicine 02/06/24 Rosa Deluca PharmD [address] [place] [address] Pharmacist Internal Medicine 12/03/23 03/23/25 documented as of this encounter
--- OUTSIDE RECORDS SUMMARY | 2025-04-14 10:50 | XMS_ITS | Patient Health Record ---
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) Active confirmed Problem Mild recurrent major depression (25414463) Major depressive disorder, recurrent, mild (F33.0) Active confirmed Problem Idiopathic periphera l autonomic neuropathy (43341346) Other idiopathic peripheral autonomic neuropathy (G90.09) Active confirmed Problem Chronic systolic hea rt failure (730941230) Chronic systolic (congestive) heart failure (I50.22) Active confirmed Problem Chronic kidney disea se stage 4 (573407345) Chronic kidney disease, stage 4 (severe) (N18.4) Active confirmed Problem Pure hypercholesterolemia (588378922) Pure hypercholester olemia, unspecified (E78.00) Active confirmed Problem Essential hypertensi on (26888691) Essential hypertension (I10) Active confirmed Plan Of Treatment Pending Test Test Name Order Date ESOPHAGOGASTRODUODENOSCOPY 12/12/2019 COLONOSCOPY AND BIOPSY 12/12/2019 COVID -19 Testing 12/12/2019 Insurance Providers Payer Name Payer Address Payer Phone Subscriber Number Group Number Insured Name Patient Relationship to Insured Coverage Start Date Coverage End Date [employer] [address] [address] [place] [address] [phone] [id number] ELAINE FLEMING Self - patient is the [...]
--- OUTSIDE RECORDS SUMMARY | 2025-04-14 10:51 | XMS_ITS | Encounter Summary ---
Author Organization [facility] [facility] Address [address] 7t [place] [address] Care Team Providers Care Geophysical E Logger Name Role Phone Emperatriz Stoll Primary Care Provider [phone] Rosa Deluca PharmD Unavailable [phone] Name, Joey MERINO Primary Care Provider [phone] Encounter Details Date Type Department Care Team ([facility] Contact Info) Description 08/21/2022 Orders Only [facility] [address] [place] [address] Emperatriz Stoll FNP [address] [place] [address] Social History Tobacco Use Types Packs/Day Years [...] Clinical Support [facility] [address] [place] [address] Remedios Calderon, RN documented as of this encounter Visit Diagnoses Not on filedocumented in this encounter Additional Health Concerns Assessment Noted Time PHQ-9 Depression Total Score: 7 07/19/19 23 3:07 PM EST documented as of this encounter Care Teams Geophysical E Logger Relationship Specialty Start Date End Date Emperatriz Stoll FNP [address] [place] [address] PCP - General Family Medicine 07/19/22 02/05/24 Name, MD Joey [address] [place] [address] PCP - General Internal Medicine 02/06/24 Rosa Deluca, DamionD [address] [place] [address] Pharmacist Internal Medicine 12/03/23 03/23/25 documented as of this encounter
--- OUTSIDE RECORDS SUMMARY | 2025-04-14 10:51 | XMS_ITS | Encounter Summary ---
Author Organization [employer] Address [address] [address] 7t [place] [address] Care Team Providers Care Superintendent Sanitation Name Role Phone Emperatriz Stoll Primary Care Provider +8 Rosa Deluca PharmD Unavailable [phone] Name, Joey MERINO Primary Care Provider [phone] Reason for Visit * Reason Comments Med Refill Encounter Details Date Type Department Care Team ([facility] st Contact Info) Description 2023 Refill [facility] [address] [place] [address] Emperatriz Stoll FNP [address] [place] [address] Social History Tobacco Use Types Packs/Day Years [...] 10:30 AM EST Clinical Support [facility] [address] [place] [address] Remedios Calderon RN documented as of this [...] documented as of this encounter Care Teams Superintendent Sanitation Relationship Specialty Start Date End Date Emperatriz Stoll FNP [address] [place] [address] PCP - General Family Medicine 07/19/22 02/05/24 Joey Barreto MD [address] [place] [address] PCP - General Internal Medicine 02/06/24 Rosa Deluca, Martha [address] [place] [address] Pharmacist Internal Medicine 12/03/23 03/23/25 documented as of this encounter
--- OUTSIDE RECORDS SUMMARY | 2025-04-14 10:51 | XMS_ITS | Patient Health Record ---
Author Organization [facility] Address [address] [place] [address] [facility] [address] [place] [address] Care Team Providers Care Orthopedic Nurse Practitioner Name Role Phone FAUZIA (ODETTEMICHELLE) VICENTE MERINO Primary Care Provider Unavailable Sheldon Pierre Unavailable [phone] Allergies No Known Allergies Reason For [...] 10 mg tablet Take 1 tablet by [facility] once daily orally once a day; [...] Vaccine Route Administration Date Status Comme nts PneumoVax Unknown 11/12/2017 Refused PneumoVax Unknown 06/25/2019 Refused PneumoVax Unknown 10/22/2019 Refused Influenza (Trivalent Split V irus) pre-filled syringe Unknown 11/12/2017 Refused INFLUENZA not Administered Unknown 06/25/2019 Refused Influenza Quadrivalent pre-f illed syringe Unknown 10/22/2019 Refused Social History Social History Additional Details Category Social Info Options Details General Alcohol no no Caffeine yes 1-2 cups per day Marital status Blood Transfusions no Place [place] Problems Problem Type SNOMED Code ICD Code Onset Dates Problem Status W/U Status Risk Notes Problem Hyperkalemia (02766792) Hyperkalemia (E87.5) Active confirmed Problem Acidosis (39867390) Metabolic ac idemia (E87.2) Active confirmed Problem Hypertension (43415603) HTN (hypertension) (I10) Active confirmed Problem Coronary artery disease (25712637) CAD (coronary artery disease) (I25.10) Active confirmed Problem Anemia of renal disease (302770072) Anemia of renal disease (D63.1) Active confirmed Problem DM - Diabetes mellitus (50069166) DM (diabetes mellitus) (E11.9) Active confirmed Problem Diabetic retinopathy (3685643) Diabetic retinopathy (E11.319) Active confirmed Problem Hyperphosphatemia (50162251) Hyperphosphatemia (E83.39) Active confirmed Problem Secondary hyperparathyroidism (73010315) Secondary hyperparathyroidism (N25.81) Active confirmed Problem Vitamin D deficiency (27080093) Vitamin D insufficiency (E55.9) Active confirmed Problem Proteinuria (19899122) Proteinuria (R80.9) Active confirmed Problem Hyperlipidemia (54834843) Hyperlipidemia (E78.5) Active confirmed Problem Requires vaccination (999517635) Pneumococcal vaccine administered (Z23) Active confirmed Problem Chronic kidney disease stage 3B (disorder) (743713159) CKD stage G3b/A3, GFR 30-44 and albumin [...] Insured Coverage Start Date Coverage End Date [facility] [address] [address] [place] [address] [id number] ELAINE FLEMING Self - patient is the insured Medicaid Secondary [address] [place], [place] [id number] ELAINE FLEMING Self - patient is the insured 9 Medical (General) History Medical History History ICD Code Hypertension Diabetes High cholesterol Angina Depression Hyperkalemia E87.5 Hypokalemia E87.6 COVID-19 U07.1 Surgical History Surgery Date(Month/Year) Eye Laser Surgery 11/2017 Heart Catherization 11/2017 Heart Catherization w stent placecement 03/2017 Eye surgery 05/2013 cataract surgery , rt 03/2019 Cataract (bilateral) Hospitalization History Reason Date(Month/Year) [facility]
--- OUTSIDE RECORDS SUMMARY | 2025-04-14 10:51 | XMS_ITS | Encounter Summary ---
Author Organization [employer] Address [address] [facility] 7t [place] [address] Care Team Providers Care Art Objects Salesperson Name Role Phone Emperatriz Stoll Primary Care Provider [phone] Rosa Deluca PharmD Unavailable [phone] Name, Joey MERINO Primary Care Provider [phone] Reason for Referral * Consultation (Routine) - Closed Specialty Diagnoses / Procedures Referred By Justina willis Referred To Contact Nutrition Diagnoses Controlled type 2 diabetes mellitus without complication, with long-term current use of insulin (HCC) Emperatriz Stoll FNP [address] [place] [address] Phone: tel: fax: Referral ID Status Reason Start Date Expiration Date V isits Requested Visits Authorized [id number] Closed Specialty Services Required 11/06/2023 11/05/2024 1 1 Encounter Details Date Type Department Care Team (Late st Contact Info) Description 11/06/2023 Orders Only [facility] [address] [place] [address] Emperatriz Stoll FNP [address] [place] [address] Controlled type 2 diabetes mellitus without complication, [...] Description 06/15/2025 10:30 AM EST Clinical Support [facility] [address] [place] [address] Remedios Calderon, RN Scheduled Referrals Name Type Priority Associated Diagnoses Orde r Schedule Referral to Nutrition Therapy Outpatient Referral Routine Controlled type 2 diabetes mellitus without complication, with long-term current use of insulin ([facility]) Expected: 11/06/2023 (Approximate), Expires: 11/05/2024 [...] documented as of this encounter Care Teams Art Objects Salesperson Relationship Specialty Start Date End Date Emperatriz Stoll FNP [address] [place] [address] PCP - General Family Medicine 07/19/22 02/05/24 Name, MD Joey [address] [place] [address] PCP - General Internal Medicine 02/06/24 Rosa Deluca, DamionD [address] [place] [address] Pharmacist Internal Medicine 12/03/23 03/23/25 documented as of this encounter
--- OUTSIDE RECORDS SUMMARY | 2025-04-14 10:51 | XMS_ITS | Encounter Summary ---
Author Organization [employer] Address [address] 7t [place] [address] Care Team Providers Care Enrollment Coordinator Name Role Phone Emperatriz Stoll Primary Care Provider +1 Rosa Deluca PharmD Unavailable [phone] Name, Joey MERINO Primary Care Provider [phone] Reason for Visit * Reason Onset Date Comments Med Refill 08/30/2023 Encounter Details Date Type Department Care Team ([facility] st Contact Info) Description 08/30/2023 Telephone [facility] [address] [place], [place] [phone] Emperatriz Stoll FNP [address] [place] [address] Med Refill Social History Tobacco Use Types [...] 50 MG tablet To be sent to: [facility] [place] [place] - [address] [place] [address] documented in this encounter Plan of Treatment Upcoming Encounters Date Type Department Care Team ([facility] st Contact Info) Description 06/15/2025 10:30 AM EST Clinical Support [facility] [address] [place] [address] Remedios Calderon RN documented as of this [...] documented as of this encounter Care Teams Enrollment Coordinator Relationship Specialty Start Date End Date Emperatriz Stoll FNP [address] [place] [address] PCP - General Family Medicine 07/19/22 02/05/24 Mary Lou, MD Joey [address] [place] [address] PCP - General Internal Medicine 02/06/24 Rosa Deluca, Martha [address] [place] [address] Pharmacist Internal Medicine 12/03/23 03/23/25 documented as of this encounter
--- OUTSIDE RECORDS SUMMARY | 2025-04-14 10:51 | XMS_ITS | Encounter Summary ---
Author Organization [employer] Address [address] 7t [place] [address] Care Team Providers Care Nursing Specialist Name Role Phone Rosa Deluca PharmD Unavailable [phone] NameJoey MD Primary Care Provider [phone] Reason for Visit * Reason Onset Date Comments Appointment Request 08/25/2024 Encounter Details Date Type Department Care Team ([facility] Contact Info) Description 08/25/2024 Telephone [facility] [address] [place] [address] Name, MD Joey [address] [place] [address] Appointment Request Social History Tobacco Use Types [...] 08/25/2024 2:03 PM EDT Pt discharged from [facility] 08/21/24 Dx: CKD, Chronic Anemia, CAD, S/P [...] Got Surgery done 08/15/24. Contact pt at [phone] documented in this encounter Plan of Treatment Upcoming Encounters Date Type Department Care Team (Late st Contact Info) Description 06/15/2025 10:30 AM EST Clinical Support [address] [address] Yumiko, Remeidos, RN documented as of this encounter Goals [...] as of this encounter Care Teams Nursing Specialist Relationship Specialty Start Date End Date Name, MD Joey [address] [place] [address] PCP - General Internal Medicine 02/06/24 Rosa Deluca PharmD [address] [place] [address] Pharmacist Internal Medicine 12/03/23 03/23/25 documented as of this encounter
--- OUTSIDE RECORDS SUMMARY | 2025-04-14 10:51 | XMS_ITS | Patient Health Record ---
Author Organization [facility] Address [address] [address] Care Team Providers Care Teacher Hearing Impaired Name Role Phone Data, Migration. Unavailable [phone] Reason For Referral No Information Medications Medication [...] Status W/U Status Risk Notes Problem Heartburn (78854501) Heartburn (R12) 08/18/19 Active confirmed HW750-Nzalcvc rn Problem Acid reflux (236917459) Acid reflux (K21.9) 08/18/19 18 Active confirmed LL261-Bwup reflux Problem Epigastric pain (57944761) Abdominal Pain Epigastric (R10.13) 08/18/19 18 Active confirmed PM379-Tktnudb al Pain Epigastric Problem Flatulence, eructation and gas pain (521257498) Bloating /gas symptom (R14.0) 08/18/19 18 Active confirmed WT007-Dnaidcf g /gas symptom Plan Of Treatment No Information Medical (General) History Surgical History Surgery Date(Month/Year) catheterization 2017 Eye Surgery (Right) 2017 Stent (1) 2016
== END 2025-04-14 10:14 | disposition home or self-care (01) ==
LOC: HO.HCS 09:39
PROVIDERS: PCP Nurse Practitioner Family; Visit Provider Nurse Practitioner Family
DX: I25.10 Atherosclerotic heart disease of native coronary artery without angina pectoris (principal); Z95.1 Presence of aortocoronary bypass graft; Z98.890 Other specified postprocedural states; I42.9 Cardiomyopathy, unspecified; Z95.5 Presence of coronary angioplasty implant and graft; I10 Essential (primary) hypertension; E78.5 Hyperlipidemia, unspecified
CPT/HCPCS: 99214; G2211

== ENCOUNTER → 2025-04-14 09:39 | Outpatient (BNVA) | payer OTHER, SELFPAY | PROVIDERS: PCP Nurse Practitioner Family; Visit Provider Nurse Practitioner Family | DX: I25.10 Atherosclerotic heart disease of native coronary artery without angina pectoris (principal); I42.9 Cardiomyopathy, unspecified; I10 Essential (primary) hypertension; E78.5 Hyperlipidemia, unspecified; Z95.1 Presence of aortocoronary bypass graft; Z95.5 Presence of coronary angioplasty implant and graft | CPT/HCPCS: 99212 ==

== ENCOUNTER 2025-04-20 09:40 | Outpatient (REF) | payer OTHER, SELFPAY ==
[2025-04-25 15:39] LABS: Testosterone, Free 111.2 pg/mL (35.0-155.0)
== END 2025-04-20 09:41 | disposition home or self-care (01) ==
LOC: HO.LAB 09:40
PROVIDERS: PCP Internal Medicine Geriatric Medicine; Visit Provider Nurse Practitioner Family
DX: E11.69 Type 2 diabetes mellitus with other specified complication (principal); N52.1 Erectile dysfunction due to diseases classified elsewhere
CPT/HCPCS: 36415; 83036; 84402; 84403

== ENCOUNTER 2025-05-06 08:14 | Outpatient (AMB) | payer OTHER, SELFPAY ==
--- OUTSIDE RECORDS SUMMARY | 2025-05-06 08:19 | XMS_ITS | Encounter Summary ---
Author Organization [employer] Address [address] [address] 7t [place] [address] Care Team Providers Care Paint Booth Operator Name Role Phone Emperatriz Stoll Primary Care Provider +[phone] Rosa Deluca PharmD Unavailable [phone] Name, Joey MERINO Primary Care Provider [phone] Encounter Details Date Type Department Care Team (Late st Contact Info) Description 04/06/2023 Orders Only [facility] [address] [place] [address] Emperatriz Stoll FNP [address] [place] [address] Social History Tobacco Use Types Packs/Day Years [...] Description 06/15/2025 10:30 AM EST Clinical Support [facility] [address] [place] [address] Remedios Calderon RN 07/31/2025 9:00 AM EST Office Visit [facility] [address] [place] [address] Nick, Jenniffer, OD [address] [place] [address] documented as of this encounter Goals Goal Patient Goal Type Associated Problems Recent Progress Patient-Stated? Author Blood Pressure < 140/90 Blood Pressure 118/66(2024 9:07 AM EDT) No Donald Johnson Hemoglobin A1c < 7.5 Result Component 7.1( 9:57 AM EST) No Donald Johnson documented as of this encounter Visit Diagnoses Not on filedocumented in this encounter Additional Health Concerns Assessment Noted Time PHQ-9 Depression Total Score: 0 12/14/19 11:09 AM EDT documented as of this encounter Care Teams Paint Booth Operator Relationship Specialty Start Date End Date Emperatriz Stoll FNP [address] [place] [address] PCP - General Family Medicine 07/19/22 02/05/24 Joey Barreto MD [address] [place] [address] PCP - General Internal Medicine 02/06/24 Rosa Deluca, Martha [address] [place] [address] Pharmacist Internal Medicine 12/03/23 03/23/25 documented as of this encounter
--- OUTSIDE RECORDS SUMMARY | 2025-05-06 08:19 | XMS_ITS | Encounter Summary ---
Author Organization [employer] Address [address] 7t [place] [address] Care Team Providers Care Jeeper Operator Name Role Phone Rosa Deluca PharmD Unavailable [phone] Name, Joey MERINO Primary Care Provider [phone] Reason for Visit * Reason Comments Med Refill Encounter Details Date Type Department Care Team ([facility] st Contact Info) Description 12/09/2024 Refill [facility] & PEDS [address] [place], [place] [phone] Name, MD Joey [address] [place] [address] Social History Tobacco Use Types Packs/Day Years [...] [facility] [address] [place] [address] Remedios Calderon RN 07/31/2025 9:00 AM EST Office Visit [facility] [address] [place] [address] Jenniffer Romero, DARCIE [address] [place] [address] documented as of this encounter Goals Goal [...] documented as of this encounter Care Teams Jeeper Operator Relationship Specialty Start Date End Date Name, MD Joey [address] [place] [address] PCP - General Internal Medicine 02/06/24 Rosa Deluca, Martha [address] [place] [address] Pharmacist Internal Medicine 12/03/23 03/23/25 documented as of this encounter
--- OUTSIDE RECORDS SUMMARY | 2025-05-06 08:19 | XMS_ITS | Encounter Summary ---
Author Organization [employer] Address [address] [place] [address] 7t [place] [address] Care Team Providers Care Suit Maker Name Role Phone Rosa Deluca PharmD Unavailable [phone] Name, Joey MERINO Primary Care Provider [phone] Reason for Visit * Reason Comments Med Refill Encounter Details Date Type Department Care Team ([facility] st Contact Info) Description 12/09/2024 Refill [facility] [address] [place] [address] Lindsay Toscano MD [address] [place] [address] Social History Tobacco Use Types Packs/Day Years [...] Clinical Support [facility] [address] [place] [address] Remedios Calderon RN 07/31/2025 9:00 AM EST Office Visit [facility] [address] [place] [address] Jenniffer Romero, DARCIE [address] [place] [address] documented as of this encounter Goals Goal [...] documented as of this encounter Care Teams Suit Maker Relationship Specialty Start Date End Date Name, MD Joey [address] [place] [address] PCP - General Internal Medicine 02/06/24 Rosa Deluca, Martha [address] [place] [address] Pharmacist Internal Medicine 12/03/23 03/23/25 documented as of this encounter
--- OUTSIDE RECORDS SUMMARY | 2025-05-06 08:19 | XMS_ITS | Encounter Summary ---
Author Organization [employer] Address [address] [place] [address] 7t [place] [address] Care Team Providers Care Sewer And Drain Technician Name Role Phone Rosa Deluca PharmD Unavailable [phone] Name, Joey MERINO Primary Care Provider [phone] Encounter Details Date Type Department Care Team ([facility] st Contact Info) Description 12/09/[address] [facility] [address] [place] [address] Lindsay Toscano MD [address] [place] [address] Social History Tobacco Use Types Packs/Day Years [...] Description 06/15/2025 10:30 AM EST Clinical Support [facility] [address] [place] [address] Remedios Calderon RN 07/31/2025 9:00 AM EST Office Visit [facility] [address] [place] [address] Jenniffer Romero, OD [address] [place] [address] documented as of this encounter Goals Goal [...] documented as of this encounter Care Teams Sewer And Drain Technician Relationship Specialty Start Date End Date Name, MD Joey [address] [place] [address] PCP - General Internal Medicine 02/06/24 Rosa Deluca, Martha [address] [place] [address] Pharmacist Internal Medicine 12/03/23 03/23/25 documented as of this encounter
--- OUTSIDE RECORDS SUMMARY | 2025-05-06 08:19 | XMS_ITS | Encounter Summary ---
Author Organization [employer] Address [address] [facility] [address] 7t [place] [address] Care Team Providers Care Manager Heavy Equipment Name Role Phone Emperatriz Stoll Primary Care Provider +6 Rosa Deluca PharmD Unavailable [phone] Name, Joey MERINO Primary Care Provider [phone] Reason for Visit * Reason Comments Med Refill Encounter Details Date Type Department Care Team ([facility] st Contact Info) Description 05/01/2023 Refill [facility] [address] [place] [address] Emperatriz Stoll FNP [address] [place] [address] Primary hypertension Social History Tobacco Use Types [...] Description 06/15/2025 10:30 AM EST Clinical Support [facility] [address] [place] [address] Remedios Calderon RN 07/31/2025 9:00 AM EST Office Visit [facility] [address] [place] [address] Nick, Jenniffer, OD [address] [place] [address] documented as of this encounter Goals Goal [...] as of this encounter Care Teams Manager Heavy Equipment Relationship Specialty Start Date End Date Emperatriz Stoll FNP [address] [place] [address] PCP - General Family Medicine 07/19/22 02/05/24 Joey Barreto MD [address] [place] [address] PCP - General Internal Medicine 02/06/24 Rosa Deluca, Martha [address] [place] [address] Pharmacist Internal Medicine 12/03/23 03/23/25 documented as of this encounter
--- OUTSIDE RECORDS SUMMARY | 2025-05-06 08:20 | XMS_ITS | Encounter Summary ---
Author Organization [employer] Address [address] [facility] 7t [place] [address] Care Team Providers Care Buzzle Buffer Name Role Phone Emperatriz Stoll Primary Care Provider [phone] Rosa Deluca PharmD Unavailable [phone] Name, Joey MERINO Primary Care Provider [phone] Reason for Referral * Consultation (Routine) - Closed Specialty Diagnoses / Procedures Referred By Justina willis Referred To Contact Nutrition Diagnoses Controlled type 2 diabetes mellitus without complication, with long-term current use of insulin (HCC) Emperatriz Stoll FNP [address] [place] [address] Phone: tel: fax: Referral ID Status Reason Start Date Expiration Date V isits Requested Visits Authorized [id number] Closed Specialty Services Required 11/06/2023 11/05/2024 1 1 Encounter Details Date Type Department Care Team (Late st Contact Info) Description 11/06/2023 Orders Only [facility] [address] [place] [address] Emperatriz Stoll FNP [address] [place] [address] Controlled type 2 diabetes mellitus without complication, [...] AM EST Clinical Support [facility] [address] [place] [address] Remedios Calderon RN 07/31/2025 9:00 AM EST Office Visit [facility] [address] [place] [address] Jenniffer Romero OD [address] [place] [address] Scheduled Referrals Name Type Priority Associated Diagnoses Orde r Schedule Referral to Nutrition Therapy Outpatient Referral Routine Controlled type 2 diabetes mellitus without complication, with long-term current use of insulin ([facility]) Expected: 11/06/2023 (Approximate), Expires: 11/05/2024 documented [...] complication, with long-term current use of insulin ([facility])- Primary documented in this encounter Additional Health Concerns Assessment Noted Time PHQ-9 Depression Total Score: 0 12/14/19 11:09 AM EDT documented as of this encounter Care Teams Buzzle Buffer Relationship Specialty Start Date End Date Emperatriz Stoll FNP [address] [place] [address] PCP - General Family Medicine 07/19/22 02/05/24 Joey Barreto MD [address] [place] [address] PCP - General Internal Medicine 02/06/24 Rosa Deluca PharmD [address] [place] [address] Pharmacist Internal Medicine 12/03/23 03/23/25 documented as of this encounter
--- OUTSIDE RECORDS SUMMARY | 2025-05-06 08:20 | XMS_ITS | Encounter Summary ---
Author Organization [employer] Address [address] 7t [place] [address] Care Team Providers Care Supervisor Inspection Department Name Role Phone Name, Joey MERINO Primary Care Provider [phone] Reason for Visit * Reason Comments Med Refill Encounter Details Date Type Department Care Team ([facility] Contact Info) Description 05/04/[address] [facility] CHC MED & PEDS [address] [place], [place] [phone] Name, MD Joey [address] [place] [address] Other chronic pain Social History Tobacco Use [...] 10:30 AM EST Clinical Support [facility] MEDICINE [address] [place] [address] Remedios Calderon RN 07/31/2025 9:00 AM EST Office Visit [facility] OPTOMETRY [address] [place] [address] Jenniffer Romero, OD [address] [place] [address] documented as of this encounter Goals Goal [...] as of this encounter Care Teams Supervisor Inspection Department Relationship Specialty Start Date End Date Name, MD Joey [address] [place] [address] PCP - General Internal Medicine 02/06/24 documented as of this encounter
--- OUTSIDE RECORDS SUMMARY | 2025-05-06 08:20 | XMS_ITS | Encounter Summary ---
Author Organization [employer] Address [address] 7t [place] [address] Care Team Providers Care Digital Content Specialist Name Role Phone Emperatriz Stoll Primary Care Provider [phone] Rosa Deluca PharmD Unavailable [phone] Name, Joey MERINO Primary Care Provider [phone] Reason for Visit * Reason Onset Date Comments Med Refill 08/30/2023 Encounter Details Date Type Department Care Team ([facility] st Contact Info) Description 08/30/2023 Telephone [facility] MEDICINE [address] [place], [place] [phone] Emperatriz Stoll FNP [address] [place] [address] Med Refill Social History Tobacco Use Types [...] 50 MG tablet To be sent to: [facility] - [place], [place] - [address] [place] [address] documented in this encounter Plan of Treatment Upcoming Encounters Date Type Department Care Team ([facility] st Contact Info) Description 06/15/2025 10:30 AM EST Clinical Support [facility] MEDICINE [address] [place] [address] Remedios Calderon RN 07/31/2025 9:00 AM EST Office Visit [facility] OPTOMETRY [address] [place] [address] Jenniffer Romero, OD [address] [place] [address] documented as of this encounter Goals Goal [...] documented as of this encounter Care Teams Digital Content Specialist Relationship Specialty Start Date End Date Emperatriz Stoll FNP [address] [place] [address] PCP - General Family Medicine 07/19/22 02/05/24 Joey Barreto MD [address] [place] [address] PCP - General Internal Medicine 02/06/24 Rosa Deluca, Martha [address] [place] [phone] Pharmacist Internal Medicine 12/03/23 03/23/25 documented as of this encounter
--- OUTSIDE RECORDS SUMMARY | 2025-05-06 08:20 | XMS_ITS | Clinical Summary ---
Author Organization [employer] Address [address] [facility] 7t [place] [address] Care Team Providers Care Cardiac Monitor Technician Name Role Phone Name, Joey MERINO Primary Care Provider [phone] Allergies No known active allergies Medications albuterol [...] 25 026 Active carvedilol (Coreg) 3.125 MG tabletIndicatio ns:Hypertension , unspecified type Take 1 tablet (3.125 mg) by mouth with breakfast and with evening meal. 60 tablet 09/13/19 25 Active cyanocobalamin (Vitamin B-12) 500 MCG tablet Patient reports purchasing OTC Active clopidogrel (Plavix) 75 MG tablet Take 75 mg by mouth Once per day. Active naloxone (Narcan) 4 mg/0.1 mL nasal sprayIndication s:Long-term current use of opiate analgesic Administer 1 spray (4 mg) into affected nostril(s) if needed for opioid reversal. May repeat every 2-3 minutes if needed, alternating nostrils, until medical assistance becomes available. 2 each 3 12/18/19 25 026 Active Lancets 33G miscIndications :Type 2 diabetes mellitus with hyperglycemia, with long-term current use of insulin ([facility]) Use as directed to check blood sugar [...] 25 Active folic acid (Folvite) 1 MG tabletIndicatio ns:Dietary counseling TAKE 1 TABLET BY MOUTH EVERY MORNING 30 tablet 2 03/05/20 25 Active aspirin (Aspirin Low Dose) 81 MG chewable tabletIndicatio ns:Presence of coronary angioplasty implant and graft CHEW [...] aspirin (Aspirin Low Dose) 81 MG chewable tabletIndicatio ns:Presence of coronary angioplasty implant and graft Chew 1 tablet (81 mg) Once per day. 90 tablet 03/10/20 25 Active Continuous Glucose Sensor (FreeStyle Sarina 2 Plus Sensor) miscIndications :Type 2 diabetes mellitus with hyperglycemia, with long-term current use of insulin ([facility]) 1 each every 8 (eight) hours. 2 each 03/23/20 25 Active Farxiga 10 MGIndications:T ype 2 diabetes mellitus with hyperglycemia, with long-term current use of insulin ([facility]) Take 1 tablet (10 mg) by mouth Once per day. 90 tablet 3 03/23/20 25 026 Active glucose blood (FreeStyle Precision Virgil Test) test stripIndication s:Type 2 diabetes mellitus with hyperglycemia, with long-term current use of insulin ([facility]) Use to test blood sugar every 8 hours as directed 100 each 11 03/23/20 25 026 Active glucose 4 g chewable tabletIndicatio ns:Type 2 diabetes mellitus with hyperglycemia, with long-term current use of insulin ([facility]) Chew 4 tablets (16 g) if needed for low blood sugar. 50 tablet 12 03/23/20 25 Active semaglutide (Ozempic, 1 MG/DOSE,) 4 MG/3ML solution pen-injectorInd ications:Type 2 diabetes mellitus with hyperglycemia, with long-term current use of insulin (HCC) Inject 1 mg under the skin 1 (one) time per week. 3 mL 1 9:25 AM EST 03/23/20 25 Active tamsulosin (Flomax) 0.4 MG 24 hr capsule TAKE 1 CAPSULE BY MOUTH AT BEDTIME 30 capsule 5 04/08/20 25 Active gabapentin (Neurontin) 300 MG capsule TAKE 1 CAPSULE BY MOUTH EVERY MORNING 30 capsule 05/05/20 25 Active traMADol (Ultram) 50 MG tabletIndicatio ns:Other chronic pain Take 1 tablet (50 mg) by mouth every 8 (eight) hours if needed for severe pain for up to 28 days. Do not start before May 08, 2025. 84 tablet 05/08/20 25 026 Active tamsulosin (Flomax) 0.4 MG 24 hr capsule TAKE 1 CAPSULE BY MOUTH AT BEDTIME 30 capsule 03/10/20 25 025 Discontinued gabapentin (Neurontin) 300 MG capsule TAKE 1 CAPSULE BY MOUTH EVERY MORNING 30 capsule 03/10/20 25 025 Discontinued traMADol (Ultram) 50 MG tabletIndicatio ns:Other chronic pain Take 1 tablet (50 mg) by mouth every 8 (eight) hours if needed for severe pain for up to 28 days. Do not start before March 11, 2025. 84 tablet 03/11/20 25 025 Discontinued gabapentin (Neurontin) 300 MG capsule TAKE 1 CAPSULE BY MOUTH EVERY MORNING 30 capsule 04/08/20 25 025 Discontinued traMADol (Ultram) 50 MG tabletIndicatio ns:Other chronic pain TAKE 1 TABLET BY MOUTH EVERY 8 HOURS NEEDED FOR SEVERE PAIN 84 tablet 04/09/20 25 025 Discontinued Active Problems Problem Noted [...] -compressions stockings 20-30 mmHg requested today to [facility] RN -pt has apt w PCP [...] CKD (chronic kidney disease) , stage III (CMS/[facility]) 11/29/2022 05/04/2023 03/07/2024 Controlled type 2 diabetes m ellitus without complication 07/19/2022 03/07/2024 Encounters Date Type Department Care Team Description 05/04/2025 Refill [facility] MED & PEDS [address] [place] [address] Name, MD Joey Other chronic pain 04/20/2025 Orders Only GENERIC EXTERNAL DATA DEPARTMENT Provider, Generic External Data 04/14/2025 Travel 04/08/2025 Refill [facility] MED & PEDS [address] [place] [address] Name, MD Joey Other chronic pain 04/07/2025 Refill [facility] MED [facility] PEDS [address] [place] [address] Joey Barreto MD 03/23/2025 Refill [facility] MEDICINE [address] [place] [address] Rosa Deluca PharmD Type 2 diabetes mellitus with hyperglycemia, with long-term current use of insulin (HCC) 03/23/2025 Telephone [facility] MEDICINE [address] [place] [address] Joey Barreto MD Referral question 03/23/2025 Travel 03/16/2025 10:00 AM EDT Clinical Support [facility] [address] [place] [address] Remedios Calderon RN Long-term current use of opiate analgesic (Primary Dx) 03/16/2025 Travel 03/09/2025 Refill [facility] MEDICINE [address] [place] [address] Joey Barreto MD Presence of coronary angioplasty implant and graft 03/09/2025 Refill [facility] MED & PEDS [address] [place] [address] Joey Barreto MD Other chronic pain 03/09/2025 Refill [facility] MED & PEDS [address] [place] [address] Joey Barreto MD Presence of coronary angioplasty implant and graft 03/09/2025 Refill [facility] [address] [place] [address] Lindsay Toscano MD Presence of coronary angioplasty implant and graft 03/05/2025 Refill [facility] [address] [place] [address] Brea Shahid NP Dietary counseling 03/05/2025 Refill [facility] [address] [place] [address] Joey Barreto MD Dietary counseling 03/03/2025 9:15 AM EDT Office Visit [address] [address] Joey Barreto MD Controlled type 2 diabetes mellitus with other circulatory complication, unspecified whether prison insulin use (CMS/[facility]) (Primary Dx); Type 2 diabetes mellitus with chronic kidney disease, without long-term current use of insulin, unspecified CKD stage (CMS/[facility]); Encounter for immunization 03/03/2025 Travel 02/24/2025 Telephone [facility] MEDICINE [address] [place] [address] Rosa Deluca, PharmD 02/24/2025 Travel 02/19/2025 Refill [facility] MEDICINE [address] [place] [address] Joey Barreto MD 02/10/2025 Orders Only [facility] MEDICINE [address] [place] [address] Joey Barreto MD Type 2 diabetes mellitus with hypoglycemia without coma, unspecified whether ad terminal makeup operator insulin use ([facility]) (Primary Dx) 02/10/2025 Travel 02/06/2025 Telephone [facility] MEDICINE [address] [place], [place] [phone] Rosa Deluca, PharmD 02/05/2025 Refill [facility] CHC MED & PEDS [address] [place], [place] [phone] NameJoey MD Other chronic pain from Last 3 [...] housing situation today? I have ngapino tapia 03/03/[address] you [...] Description 06/15/2025 10:30 AM EST Clinical Support [facility] MEDICINE [address] [place], [place] [phone] Remedios Calderon RN 07/31/2025 9:00 AM EST Office Visit [facility] OPTOMETRY [address] [place] [address] NickJenniffer hernandez, OD [address] [place] [address] Health Maintenance Due Date Last Done Comments [...] 06/18/2024, Additional history exists Diabetes: Hemoglobin A1C 07/21/2025 025, 01/28/2025, 11/07/2024, Additional history exists Dental X-Ray: Full Mouth [...] 140/90 Blood Pressure 118/66(2024 9:07 AM EDT) Donald Biggs Hemoglobin A1c < 7.5 Result Component 7.1( 9:57 AM EST) No Donald Johnson Help patients manage their type 2 diabetes Care Plan Help patients manage their type 2 diabetes Remedios Nunn RN Weekly blood pressure task Care Plan Weekly blood pressure task Remedios Nunn RN Help patients manage their type 2 diabetes Care Plan Help patients manage their type 2 diabetes Remedios Nunn RN Patient has chronic kidney disease Care Plan Patient has chronic kidney disease Remedios Nunn RN Weekly blood pressure task Care Plan Weekly blood pressure task Remedios Nunn RN Patient has chronic kidney disease Care Plan Patient has chronic kidney disease No Remedios Calderon RN Procedures Procedure Name Priority Date/Time Associated Diagnosis Comments TESTOSTERONE, FREE, BIOAVAILABLE AND TOTAL, MALES (ADULT), IA Routine 04/20/2025 9:57 AM EST HEMOGLOBIN A1C Routine 04/20/2025 9:57 AM EST POCT TRINITY-14 URINE DRUG SCREEN Routine 03/16/2025 10:10 AM EDT Long-term current use of opiate analgesic POCT GLUCOSE Routine 03/03/2025 9:18 AM EDT Controlled type 2 diabetes mellitus with other circulatory complication, unspecified whether prison insulin use ([facility]) BITEWINGS - 4 RADIOGRAPHIC IMAGES Routine 10/15/2024 [...] Recently Relevant to Health Maintenance Results * Testosterone, Free (Dialysis) And Total, MS (04/20/2025 9:57 AM EST) Testosterone, Total 618 250 - 1100 ng/dL [facility] Comment:Men with clinically significant hypogonadalsymptoms and testosterone values repeatedly inthe range of the 200-300 ng/dL or less, maybenefit from testosterone treatment afteradequate risk and benefits counseling.For additional information, please refer tohttp://education.[employer]/faq/DruklJnucexacqtgiAVMGBQNBW304(This link is being provided for informational/educational purposes only.)This test was developed and its analytical performancecharacteristics have been determined by [place]. It hasnot been cleared or approved by the U.S. Food and DrugAdministration. This assay has been validated pursuantto the CLIA regulations and is used for clinicalpurposes. Testosterone, Free 111.2 35.0 - 155.0 pg/mL [facility] Comment:This test was develo ped and its analytical performancecharacteristics have been determined by [employer] [place], [place]. It hasnot been cleared or approved by the U.S. Food and DrugAdministration. This assay has been validated pursuantto the CLIA regulations and is used for clinicalpurposes.THIS TEST WAS PERFORMED AT:[employer] [id number] [place] [address]DLMSJWGKATIE NOONAN MD,PHD 04/20/2025 9:57 AM EST 04/20/2025 9:57 AM EST us Generic External Data Provider LAB BLOOD ORDERAB LES Final Result [facility] [address] [place] [phone] * (ABNORMAL) Hemoglobin A1c (04/20/2025 9:57 AM EST) Hemoglobin A1c 7.1(H) <6.0 % [facility] Comment:Hemoglobin A1C Refer ence Range Adults: 4.8 - 6.0 % Non diabetic: < 6.0 % Goal: < 7.0 %Additional Action Suggested: > 8.0 %Note: Hemoglobin A1c results are invalid for patients with abnormal amounts of HbF. Blood transfusions may impact the HbA1c concentration in the patient sample. Estimated Average Glucose 157 mg/dL [facility] Comment:eAG = Estimated ave rage glucose which is %A1C expressed asaverage glucose, using the formula of the B9W-JnkbsijWwfxjdw Glucose study (ADAG), Diabetes Care, Vol.31,#8,Jan. 2007 04/20/2025 9:57 AM EST 04/20/2025 9:57 AM EST us Generic External Data Provider LAB BLOOD ORDERAB LES Final Result [facility] [address] [place] [phone] * POCT TRINITY-14 Urine Drug Screen (03/16/2025 [...] procedure / Unknown 03/16/2025 10:10 AM EDT Remedios Topete RN - 03/16/2025 10:10 AM EDT UTOX cup Lot#[id number] Exp. 03/10/26 Internal Pass Control us Joey Name POINT OF CARE TEST [...] 9:33 AM EST) Triglycerides 68 <150 mg/dL [facility] Comment:Desirable Triglyceri de: less than 150 mg/dLBorderline High Triglyceride 150-199 mg/dLHigh Triglyceride: 200-499 mg/dLVery High Triglyceride: greater than or equal to 5OO mg/dL Cholesterol 91 <200 mg/dL [facility] Comment:Desirable Cholestero l: less than 200 mg/dLBorderline High Cholesterol: 200-239 mg/dLHigh Cholesterol: greater than 239 mg/dL LDL Cholesterol Calculated 55 <100 mg/dL [facility] Comment:Desirable LDL: less than 100 mg/dLNear Optimal/Above Optimal LDL: 110- 129 mg/dLBorderline High LDL: 130-159 mg/dLHigh LDL: 160-189 mg/dLVery High LDL: greater than or equal to 190 mg/dL HDL Cholesterol 23(L) >40 mg/dL [facility] Comment:Desirable HDL: great er than 40 mg/dL Note: This HDL assay may give artificially low results in patients with liver disease. 06/02/2024 9:33 AM EST 06/02/2024 9:33 AM EST us Generic External Data Provider LAB BLOOD ORDERAB LES Final Result [facility] [address] [place] [phone] * Cytopath-cell enhanced (05/06/2024 4:37 PM EST) 05/06/2024 4:37 PM EST 05/07/2024 1:25 PM EST Narrative [facility] - 05/09/2024 9:42 AM EST ----- ------- Name: Efrain Dewitt Age/Sex: 63/M : 1960 Unit#: [id number] Attend Dr: Elmira Mcdonald [facility] Re05/06/24 Status: DEP [facility] Disch: ----- ------- SPEC : [id number] RECD: 05/07/24-1325 STATUS: RYAN MELO NUM: [id number] ARPAN: 05/06/[address] [facility] [address]: Elmira Mcdonald [facility] ENTERED: 05/07/24-1415 SP TYPE: Cytology OTHR DR: Emperatriz Stoll MAT INSPECTOR ORDERED: Cyto-enhanced Diagnosis Urine: Negative for high-grade urothelial carcinoma. See comment. COMMENT: Paucicellular specimen consisting of occasional single urothelial cells with degenerative changes, few squamous cells, red blood cells and occasional lymphocytes. Clinical History Other microscopic hematuria Material Received Urine Gross Description Received is 25 cc of clear yellow fluid from which a ThinPrep slide is prepared. Copies To: Emperatriz Stoll MAT INSPECTOR [address] [place] [address] Elmira Mcdonald [facility] [address] [place] [address] Dr. [address] [place] [address] [email or web address] ----- ------- Signed (signature on file) Jeanmarie Chavez MD 05/09/24 0942 ----- ------- END OF REPORT us Generic External Data Provider LAB CYTOLOGY SPEEDY DONG Final Result [facility] [address] [place] [address] [phone] from Last 3 Months or Most Recently Relevant to Health Maintenance Additional Health Concerns Active Problems Noted Date Diagnosed Date Help patients manage their type 2 diabetes 05/05 Weekly blood pressure task 05/05/2025 Help patients manage their type 2 diabetes 05/05 Patient has chronic kidney disease 05/05/2025 Weekly blood pressure task 05/05/2025 Patient has chronic kidney disease 05/05/2025 Insurance [facility] CARE < [address] [facility] [address] STANDARD DENTAL - [facility] Care Teams Cardiac Monitor Technician Relationship Specialty Start Date End Date Name, MD Joey [address] [place] [id number] PCP - General Internal Medicine 02/06/24
--- OUTSIDE RECORDS SUMMARY | 2025-05-06 08:20 | XMS_ITS | Encounter Summary ---
Author Organization [employer] Address [address] [place] [address] Care Team Providers Care Hospitalist Nocturnist Physician Name Role Phone Emperatriz Stoll Primary Care Provider [phone] Rosa Deluca PharmD Unavailable [phone] Name, Joey MERINO Primary Care Provider [phone] Reason for Visit * Reason Comments Med Refill Encounter Details Date Type Department Care Team (Late st Contact Info) Description 01/12/2023 Refill [facility] MEDICINE [address] [place] [address] Emperatriz Stoll FNP [address] [place] [address] Other chronic pain Social History Tobacco Use [...] Description 06/15/2025 10:30 AM EST Clinical Support [facility] MEDICINE [address] [place] [address] Remedios Calderon, RN 07/31/2025 9:00 AM EST Office Visit [facility] OPTOMETRY [address] [place], [place] [phone] Jenniffer Romero, OD [address] [place] [address] documented as of this encounter Visit Diagnoses Diagnosis Other chronic pain documented in this encounter Additional Health Concerns Assessment Noted Time PHQ-9 Depression Total Score: 0 12/14/19 11:09 AM EDT documented as of this encounter Care Teams Hospitalist Nocturnist Physician Relationship Specialty Start Date End Date Emperatriz Stoll FNP [address] [place] [address] PCP - General Family Medicine 07/19/22 02/05/24 Joey Barreto MD [address] [place], [place] [phone] PCP - General Internal Medicine 02/06/24 [place] [address] Pharmacist Internal Medicine 12/03/23 03/23/25 documented as of this encounter
--- OUTSIDE RECORDS SUMMARY | 2025-05-06 08:20 | XMS_ITS | Encounter Summary ---
Author Organization [employer] [facility] Address [address] [place] [address] Care Team Providers Care Cloth Shrinking Machine Operator Helper Name Role Phone Emperatriz Stoll Primary Care Provider [phone] Rosa Deluca PharmD Unavailable [phone] Name, Joey MERINO Primary Care Provider [phone] Encounter Details Date Type Department Care Team ([facility] Contact Info) Description 08/21/2022 Orders Only [facility] MEDICINE [address] [place] [address] Emperatriz Stoll FNP [address] [place] [address] Social History Tobacco Use Types Packs/Day Years [...] Description 06/15/2025 10:30 AM EST Clinical Support [facility] MEDICINE [address] [place] [address] Remedios Calderon, RN 07/31/2025 9:00 AM EST Office Visit [facility] OPTOMETRY [address] [place] [address] Nick, Jenniffer, OD [address] [place] [address] documented as of this encounter Visit Diagnoses Not on filedocumented in this encounter Additional Health Concerns Assessment Noted Time PHQ-9 Depression Total Score: 7 07/19/19 3:07 PM EST documented as of this encounter Care Teams Cloth Shrinking Machine Operator Helper Relationship Specialty Start Date End Date Emperatriz Stoll FNP [address] [place] [address] PCP - General Family Medicine 07/19/22 02/05/24 Joey Barreto MD [address] [place] [address] PCP - General Internal Medicine 02/06/24 Rosa Deluca PharmD [address] [place] [address] Pharmacist Internal Medicine 12/03/23 03/23/25 documented as of this encounter
--- OUTSIDE RECORDS SUMMARY | 2025-05-06 08:20 | XMS_ITS | Encounter Summary ---
Author Organization [employer] [facility] Address [address] [place] [address] Care Team Providers Care Weigher And Charger Name Role Phone Emperatriz Stoll Primary Care Provider + Rosa Deluca PharmD Unavailable [phone] Name, Joey MERINO Primary Care Provider [phone] Encounter Details Date Type Department Care Team ([facility] Contact Info) Description 10/20/2022 Orders Only [facility] MEDICINE [address] [place] [address] Emperatriz Stoll FNP [address] [place] [address] Other chronic pain Social History Tobacco Use [...] Description 06/15/2025 10:30 AM EST Clinical Support [facility] MEDICINE [address] [place] [address] Remedios Calderon RN 07/31/2025 9:00 AM EST Office Visit [facility] OPTOMETRY [address] [place] [address] Nick, Jenniffer, OD [address] [place] [address] documented as of this encounter Procedures Procedure Name Priority Date/Time Associated Diagnosis Comments XR CHEST 2 VIEWS Routine 11/17/2022 4:30 PM EDT documented in this encounter Results * XR Chest 2 Views (11/17/2022 4:30 PM EDT) Anatomical Region Laterality Modality Chest Radiographic Mony ging 11/17/2022 4:30 PM EDT Narrative 11/24/2022 2:21 PM EDT [facility] [address] [place] [address] XRay Report Signed Patient: Efrain Dewitt MR#: [id number] : 1960 Acct:[id number] Age/Sex: 61 / M ADM Date: 11/17/22 [facility] Att[facility] Dr: Emperatriz Stoll NP Ordering Physician: Emperatriz Stoll NP Date of Service: 11/17/22 Procedure(s): XR chest 2V Accession Number(s): [id number] cc: Emperatriz Stoll METHODS AND PROCEDURES ANALYST EXAMINATION: XR CHEST CLINICAL INFORMATION: Bilateral [...] in OV> 11/24/22 1418 DD/ 1630 TD/TT: Oil Painter: DAVID Procedure Note Donotuseinterpreter, Image - 11/29/[address] [address] XRay Report Signed Patient: Efrain DewittMR#: [id number] : 1Acct:[id number] Age/Sex: 61 / MADM Date: 11/17/22 Loc: [facility] Attending Dr: Emperatriz Stoll METHODS AND PROCEDURES ANALYST Ordering Physician: Emperatriz Stoll METHODS AND PROCEDURES ANALYST Date of Service: 11/17/22 Procedure(s): XR chest 2V Accession Number(s): [id number] cc: Emperatriz Stoll METHODS AND PROCEDURES ANALYST EXAMINATION: XR CHEST CLINICAL INFORMATION: Bilateral [...] in OV> 11/24/22 1418 DD/ 1630 TD/TT: Oil Painter: DAVID [facility] External Provider IMG XR PROCEDURES Final Result documented in this encounter Visit Diagnoses Diagnosis Other chronic pain documented in this encounter Additional Health Concerns Assessment Noted Time PHQ-9 Depression Total Score: 7 07/19/19 23 3:07 PM EST documented as of this encounter Care Teams Weigher And Charger Relationship Specialty Start Date End Date Emperatriz Stoll FNP [address] [place] [address] PCP - General Family Medicine 07/19/22 02/05/24 Joey Barreto MD [address] [place] [id number] PCP - General Internal Medicine 02/06/24 Rosa Deluca, DamionD [address] [place] [address] Pharmacist Internal Medicine 12/03/23 03/23/25 documented as of this encounter
--- OUTSIDE RECORDS SUMMARY | 2025-05-06 08:20 | XMS_ITS | Encounter Summary ---
Author Organization [employer] Address [address] [place] [address] Care Team Providers Care Digital Marketing Coordinator Name Role Phone Rosa Deluca PharmD Unavailable [phone] NameJoey MD Primary Care Provider Reason for Visit * Reason Onset Date Comments Appointment Request 08/25/2024 Encounter Details Date Type Department Care Team ([facility] Contact Info) Description 08/25/2024 Telephone [facility] MEDICINE [address] [place] [address] Name, MD Joey [address] [place] [address] Appointment Request Social History Tobacco Use Types [...] 08/25/2024 2:03 PM EDT Pt discharged from [facility] 08/21/24 Dx: CKD, Chronic Anemia, [...] Got Surgery done 08/15/24. Contact pt at [phone] documented in this encounter Plan of Treatment Upcoming Encounters Date Type Department Care Team (Late st Contact Info) Description 06/15/2025 10:30 AM EST Clinical Support [address] [address] Remedios Calderon RN 07/31/2025 9:00 AM EST Office Visit [facility] OPTOMETRY [address] [place] [address] Jenniffer Romero, OD [address] [place] [address] documented as of this encounter Goals Goal [...] as of this encounter Care Teams Digital Marketing Coordinator Relationship Specialty Start Date End Date Name, MD Joey [address] [place] [address] PCP - General Internal Medicine 02/06/24 Rosa Deluca PharmD [address] [place] [address] Pharmacist Internal Medicine 12/03/23 03/23/25 documented as of this encounter
--- OUTSIDE RECORDS SUMMARY | 2025-05-06 08:20 | XMS_ITS | Encounter Summary ---
Author Organization [employer] Address [address] [place] [address] Care Team Providers Care Pharmacovigilance Specialist Name Role Phone Emperatriz Stoll Primary Care Provider +[phone] Rosa Deluca PharmD Unavailable [phone] Name, Joey MERINO Primary Care Provider [phone] Reason for Visit * Reason Comments Med Refill Encounter Details Date Type Department Care Team ([facility] st Contact Info) Description 2023 Refill [facility] MEDICINE [address] [place] [address] Emperatriz Stoll FNP [address] [place] [address] Social History Tobacco Use Types Packs/Day Years [...] Description 06/15/2025 10:30 AM EST Clinical Support [facility] MEDICINE [address] [place] [address] Remedios Calderon RN 07/31/2025 9:00 AM EST Office Visit [facility] OPTOMETRY [address] [place] [address] Nick, Jenniffer, OD [address] [place] [address] documented as of this encounter Goals Goal [...] documented as of this encounter Care Teams Pharmacovigilance Specialist Relationship Specialty Start Date End Date Emperatriz Stoll FNP [address] [place] [address] PCP - General Family Medicine 07/19/22 02/05/24 Joey Barreto MD [address] [place] [address] PCP - General Internal Medicine 02/06/24 Rosa Deluca PharmD [address] [place] [address] Pharmacist Internal Medicine 12/03/23 03/23/25 documented as of this encounter
--- NOTE | 2025-05-06 08:23 | A.OFFVIS_ITS ---
Intake Visit Reasons: 3m/UA Intake Note: Patient is present for 3M/UA/LABS Urology Medication:TADALAFIL,TAMSULOSIN Antibiotic Allergy:NONE Blood Thinner:ASPIRIN Funeral Driver Required: Yes Funeral Driver Services: Funeral Driver Present Funeral Driver Name: Jarod [id number] Allergies No Known Allergies Allergy (Verified 05/06/25 11:05) Medication List - Last Reconciled 05/06/25 by SALLY Chaudhry-MARYELLEN ascorbic acid (vitamin C) (Vitamin C) 500 mg PO DAILY aspirin (Pilar Low Dose Aspirin) 81 mg PO DAILY atorvastatin 80 mg PO QAM blood sugar diagnostic (LogRhythmuch Ultra Test strips) As directed carvedilol 3.125 mg PO BID clopidogrel 75 mg PO DAILY dapagliflozin propanediol (Farxiga) 10 mg PO DAILY 30 days ezetimibe (Zetia) 10 mg PO DAILY folic acid 1 mg PO DAILY gabapentin 300 mg PO ONCE semaglutide (Ozempic) 0.5 mg subcut QWEEK tadalafil (Cialis) 10 mg PO .PRN PRN 30 days HPI Comments Details: Efrain is a 64-year-old [place]er-speaking male patient of Dr. Barreto. He has a past medical history of acute coronary syndrome, diabetic retinopathy, diabetes, hypertension, chronic kidney disease, and smoker. He presents to the office today for follow-up of his erectile dysfunction. In discussion with the patient today he reports to be doing and feeling well. He reports compliance with tamsulosin as prescribed. He denies having had any bothersome urinary issues. During last office visit we discussed potential causes of erectile dysfunction as well as further treatment options and risks and benefits of these treatment options at which time initiation of low-dose Cialis and prescription provided for p.r.n. dosing prior to sexual activity was given. However in discussion with the patient today he reports he has not yet started the medication as he is not currently sexually active. He does discuss experiencing issues with bilateral lower leg numbness with masturbation. He also reports noting retrograde ejaculation. We did discussed potential causes of retrograde ejaculation as well as side effects of tamsulosin. Of note patient status post three-vessel coronary artery bypass grafting on 08/26. We did again review potential causes of ED as well as further treatment options and risks and benefits of these treatment options. We will continue with surveillance monitoring at this time as patient is not currently sexually active per his request. Most recent labs are as follows: Testosterone 05/27 390, 04/28 618 PSA 05/27 3.8, 01/26 2.5 A1c 05/27 6.4%, 01/26 6.8 %, 04/28 7.1 % He discusses his longstanding history of erectile dysfunction for over 7-10 years. He reports he is able to obtain an erection. He discusses being very active and walks anywhere in between 3-5 miles a day without any cardiac issues or symptoms. He otherwise denies any bothersome urinary issues. He denies any previous trauma and or surgical history in the area. He denies urinary urgency, urinary frequency, incontinence, nocturia, hematuria, dysuria, foul smelling urine, changes to urinary stream, flank pain, fever, and or chills. In office urinalysis results reviewed with the patient today. We discussed at length potential causes of erectile dysfunction as well as further treatment options and risks and benefits of these treatment options. We discussed lifestyle modifications to assist with ED. He otherwise denies any other issues or concerns at this time. [facility] Medical History ACS (acute coronary syndrome) Diabetic retinopathy Diabetes Hypertension CKD (chronic kidney disease) Exertional chest pain Smoker Surgical History Hx of CABG Stented coronary artery Hx of cardiac catheterization Family History Mother No problems noted. Father No problems noted. Social History e-Cigarette/Vaping Use: Never Used Current occupational status: unemployed Cognitive needs: No Hearing needs: No Vision needs: Yes (wears glasses) Review of Systems Const Reports no additional complaints Eyes Reports as per HPI ENT Reports no additional complaints Card Reports as per HPI Resp Reports no additional complaints GI Reports no additional complaints Reports as per HPI Musc Reports no additional complaints Neuro Reports no additional complaints Psych Reports no additional complaints Endo Reports as per HPI Physical Exam Const General: cooperative, healthy appearing, comfortable, no acute distress, well developed, alert and awake Orientation/consciousness: patient oriented x3 Limitations: language barrier HEENT Head: Yes normal to inspection, Yes normocephalic and Yes atraumatic Ears: hearing grossly normal bilaterally Eyes General: appearance normal, both eyes and all related structures Neck Neck: Yes normal visual inspection and Yes trachea midline Chest Chest palpation & inspection: normal inspection of the chest Resp Effort & Inspection: normal respiratory effort and able to speak in complete sentences Cardio Rate: regular rate GI Inspection: Yes normal to inspection General: Yes no CVA tenderness Back/Spine/Pelvis Back: no CVA tenderness Skin General skin exam: no rashes or lesions noted Neuro General: patient oriented x3 Extrem General: Yes normal to inspection Psych Appearance: grossly normal and well kempt Mental Status: mental status grossly normal Speech and movement: Normal speech and movement present and Clear speech present Affect: normal affect Attitude: cooperative Thought process: Normal thought process present Thought content: Normal thought content present Insight: Fair insight present (Psych) Judgement: Fair judgement present (Psych) Results AMB Urinalysis, Automated UA Leukoctes 0 Emerson/uL Last Edit by LONG Figueroa on 05/06/25 08:57 UA Nitrite Negative Last Edit by LONG Figueroa on 05/06/25 08:57 UA Urobilinogen 0.2 mg/dL Last Edit by LONG Figueroa on 05/06/25 08:5 7 UA Protein 15 mg/dL Last Edit by LONG Figueroa on 05/06/25 08:57 UA pH 6.0 Last Edit by LONG Figueroa on 05/06/25 08:57 UA Blood 10 Gabriel/uL Last Edit by LONG Figueroa on 05/06/25 08:57 UA Specific [place] 1.015 Last Edit by LONG Figueroa on 05/06/25 08: 57 UA Ketone Negative Last Edit by LONG Figueroa on 05/06/25 08:57 UA Bilirubin 0 mg/dL Last Edit by LONG Figueroa on 05/06/25 08:57 UA Glucose 1000 mg/dL Last Edit by LONG Figueroa on 05/06/25 08:57 Results Reviewed Results Reviewed: Laboratory Last Values Urine pH (Auto) 6.0 05/06/25 08:57 Specific [place] (Auto) 1.015 05/06/25 08:57 Urine Protein (Auto) 15 mg/dL 05/06/25 08:57 Glucose (UA)(Auto) 1000 mg/dL 05/06/25 08:57 Urine Ketones (Auto) Negative 05/06/25 08:57 Urine Blood (Auto) 10 Gabriel/uL 05/06/25 08:57 Urine Nitrite (Auto) Negative 05/06/25 08:57 Urine Bilirubin (Auto) 0 mg/dL 05/06/25 08:57 Urine Urobilinogen (Auto) 0.2 mg/dL 05/06/25 08:57 Leukocyte Esterase (Auto) 0 Emerson/uL 05/06/25 08:57 Assessment & Plan Assessment & Plan (1) Erectile dysfunction associated with type 2 diabetes mellitus: Code(s): E11.69 - Type 2 diabetes mellitus with other specified complication; N52.1 - Erectile dysfunction due to diseases classified elsewhere Category: Medical (2) Lower urinary tract symptoms: Code(s): R39.9 - Unspecified symptoms and signs involving the genitourinary system Category: Medical Plan In office urinalysis results reviewed with the patient today; will send for urine cytology. Recent testosterone and A1c results reviewed with the patient today; as noted above. We reviewed again at length potential causes of ED as well as further treatment options and risks and benefits of these treatment options. He reports be happy with current voiding parameters on 0.4 mg of Flomax; will continue. He currently denies any bothersome urinary issues. We did discussed the importance of management and diabetes for ED as well as overall health and well-being. We reviewed lifestyle modifications to assist with ED. All questions were answered. Will obtain PSA in 6 months Follow-up in 6 months with PSA and PVR; or sooner with any issues, concerns, and or questions. Orders: Orders AMB Urinalysis Automated Today Z13.9 - Encounter for screening, unspecified Urine Cytology Today R31.29 - Other microscopic hematuria Prostate Specific Antigen 6 Months E11.69 - Type 2 diabetes mellitus with other specified complication, N52.1 - Erectile dysfunction due to diseases classified elsewhere Patient Instructions: The patient had an opportunity to ask questions regarding the treatment plan. All questions were answered. Physical exam, labs, and imaging were discussed and reviewed in detail. As well as risks, benefits, and discussion of treatment choices. No major barriers to understanding were identified. The patient expressed understanding and agreement with the above treatment plan. The patient was made aware they should contact our office by phone for worsening of their current condition, the appearance of new symptoms, or with any questions or concerns. Compliance is encouraged with any medications and follow up testing that is ordered. It is a privilege to be allowed the opportunity to participate in? your urological care.? Again, if you have any questions or concerns If you have any questions or concerns please do not hesitate to contact me. The office is [phone]. This note is constructed using voice recognition software. While every effort has been made to ensure accuracy medical communication specialist errors may have been included. Yours sincerely, EDGARDO Chaudhry Coding Level of Care Code Est Pt Level 4 (03822) Complex visit Add On G2211 Diagnoses Erectile dysfunction associated with type 2 diabetes mellitus E11.69; N52.1 Lower urinary tract symptoms R39.9 Time Spent (min) 40
== END 2025-05-06 09:34 | disposition home or self-care (01) ==
LOC: HO.HUSH 08:15
PROVIDERS: PCP Nurse Practitioner Family; Visit Provider Nurse Practitioner Family
DX: E11.69 Type 2 diabetes mellitus with other specified complication (principal); N52.1 Erectile dysfunction due to diseases classified elsewhere; R39.9 Unspecified symptoms and signs involving the genitourinary system; Z13.9 Encounter for screening, unspecified
CPT/HCPCS: 99214; G2211

== ENCOUNTER 2025-05-06 08:14 | Outpatient (REF) | payer OTHER, SELFPAY ==
--- OUTSIDE RECORDS SUMMARY | 2025-05-06 08:46 | XMS_ITS | Clinical Summary ---
Author Organization [facility] Address [address] [place] [address] Phone Care Team Providers Care Transfer Engineer Name Role Phone Name, Joey MERINO Primary Care Provider [phone] Allergies No known active allergies Medications carvedilol [...] MORNING 90 tablet 2 05/19/20 24 Active Additional Information Patient not taking.Reported on 03/24/2025 Ascorbic Acid (vitamin C) 500 MG tablet [...] (one) time each day with breakfast Active gabapentin (NEURONTIN) 300 MG capsule Take 300 mg by mouth every morning 09/12/19 25 Active lactulose (CEPHULAC) 10 g packet Take 10 g by mouth 1 (one) time each day Active Naloxone HCl (GNP Naloxone HCl) 4 MG/0.1ML liquid Administer into affected nostril(s) Active polyethylene glycol (GLYCOLAX) 17 g packet Take 17 g by mouth 1 (one) time each day Active tadalafil (CIALIS) 10 MG tablet Take 10 mg by mouth 1 (one) time each day if needed for erectile dysfunction Active tadalafil (CIALIS) 5 MG tablet Take 5 mg by mouth 1 (one) time each day Active Ascorbic Acid (vitamin C) 500 MG tablet Take 500 mg by mouth 1 (one) time each day Active Active Problems Problem Noted Date Diagnosed [...] Encounters Date Type Department Care Team Description 04/02/2025 Orders Only [facility] [address] [facility] [address] [place] [address] Kevin Gates MD 03/24/2025 1:30 PM EDT Office Visit [facility] [address] [facility] [address] [place] [address] Kevin Gates MD Chronic kidney disease, stage 4 (severe) (HCC) (Primary Dx); Type 2 diabetes mellitus with diabetic chronic kidney disease, not otherwise specified (HCC); Renal osteodystrophy from Last 3 Months Immunizations Immunization Administration Dates Next Due HepB-CpG 06/24/2024,01/01/2024 Influenza (IM) Preservative Free 03/03/2025,03/0 10/2024 Pfizer SARS-COV-2 05/18/2021 Pfizer SARS-CoV-2 Bivalent 30 mcg/0.3 mL 023 Pneumococcal Conjugate Pcv 20 01/07/2024 SARS-CoV-2, Unspecified 10/06/2020 Shingrix 06/24/2024,01/07/2024 Tdap 01/01/2024 Family History Relation Status Comments Father Alive [...] Sign Reading Time Taken Comments Blood Pressure 129/60 03/24/2025 1:41 PM EDT Pulse 88 03/24/2025 1:41 PM EDT Temperature - - Respiratory Rate - - Oxygen Saturation 97% 03/24/2025 1:41 PM EDT Inhaled Oxygen Concentration - - Weight 79.4 kg (175 lb) 03/24/2025 1:41 PM EDT Height - - Body Mass Index - - Plan of Treatment Upcoming Encounters Date Type Department Care Team (Late st Contact Info) Description 09/22/2025 10:45 AM EDT Office Visit [facility] [address] [address] Patricia Fulton ARNP [address] [address] Health Maintenance Due Date Last Done Comments Colorectal Cancer Screening: Annual FOBT 2009 Colorectal Cancer Screening: Colonoscopy 2009 Colorectal Cancer Screening: Sigmoidoscopy 2009 Diabetes: Ophthalmology Exam 07/31/2022 Diabetes: Pedal Pulse Checked 07/31/2022 Diabetes: Sensory Foot Exam 07/31/2022 Diabetes: Visual Foot Exam 07/31/2022 Hepatitis B Vaccine (3 of 3 - 19+ 3-dose series) 08/19/2024 06/24/2024, 01/01/2024 Diabetes: Hemoglobin A1C 04/30/2025 025, 11/07/2024, 07/14/2024, Additional history exists Pneumococcal Vaccine: 50+ Years Completed Pneumococcal Vaccine: Peds ( 0 to 5 Years) and At-Risk Patients (6 to 49 Years) Discontinued 01/07/2024 Influenza Vaccine Completed 03/03/2025, 08/06/2024 Procedures Procedure Name Priority Date/Time Associated Diagnosis Comments ALBUMIN, URINE, RANDOM Routine 04/02/2025 10:38 AM EDT PROTEIN / CREATININE RATIO, URINE Routine 04/02/2025 10:38 AM EDT Chronic kidney disease, stage 4 (severe) (HCC) Type 2 diabetes mellitus with diabetic chronic kidney disease, not otherwise specified (HCC) Renal osteodystrophy URINALYSIS WITH MICROSCOPIC Routine 04/02/2025 10:38 AM EDT Chronic kidney disease, stage 4 (severe) (HCC) Type 2 diabetes mellitus with diabetic chronic kidney disease, not otherwise specified (HCC) Renal osteodystrophy CREATININE, BLOOD Routine 04/02/2025 9:1 8 AM EDT BUN Routine 04/02/2025 9:18 AM EDT ELECTROLYTE PANEL Routine 04/02/2025 9:1 8 AM EDT PTH, INTACT (HC) Routine 04/02/2025 9:18 AM EDT CBC AND DIFFERENTIAL Routine 04/02/2025 9:18 AM EDT CALCIUM Routine 04/02/2025 9:18 AM EDT Chronic kidney disease, stage 4 (severe) (HCC) Type 2 diabetes mellitus with diabetic chronic kidney disease, not otherwise specified (HCC) Renal osteodystrophy ALBUMIN Routine 04/02/2025 9:18 AM EDT Chronic kidney disease, stage 4 (severe) (HCC) Type 2 diabetes mellitus with diabetic chronic kidney disease, not otherwise specified (HCC) Renal osteodystrophy MAGNESIUM Routine 04/02/2025 9:18 AM EDT Chronic kidney disease, stage 4 (severe) (HCC) Type 2 diabetes mellitus with diabetic chronic kidney disease, not otherwise specified (HCC) Renal osteodystrophy PHOSPHATE ( PHOSPHORUS) Routine 04/02/2025 9:18 AM EDT Chronic kidney disease, stage 4 (severe) (HCC) Type 2 diabetes mellitus with diabetic chronic kidney disease, not otherwise specified (HCC) Renal osteodystrophy VITAMIN D 25 HYDROXY Routine 04/02/2025 9:18 AM EDT Chronic kidney disease, stage 4 (severe) (HCC) Type 2 diabetes mellitus with diabetic chronic kidney disease, not otherwise specified (HCC) Renal osteodystrophy from Last 3 Months Results * (ABNORMAL) Protein, Total, Random Urine w/Creatinine (Protein/Creat Ratio) (04/02/2025 10:38 AM EDT) Protein Urine Random 19(H) <12 mg/dL See order comments Protein/Creati nine Ratio, Urine 0.21(H) <0.2 See order comments Comment: The spot urine protein:creatinine ratio may increase to 0.3 during normal . Urine Urine specimen obtained by clean catch procedure / Unknown 04/02/2025 10:38 AM EDT 04/02/2025 10:38 AM EDT Kevin Gates MD LAB URINE ORDERABLES Final Re sult Performing Organization Address [facility] de Phone Number [facility] See order comments [place] [address] * (ABNORMAL) Albumin, urine, random (04/02/2025 10:38 AM EDT) Creatinine, Urine 92.21 mg/dL Se e order comments Urine Microalbumin 58.0 mg/L See order comments Microalbumin/Crea tinine Ratio 62.8(H) <30 ug/mg cr See order comments Comment: Albumin/Creatinine Ratio Reference Ranges: Normal: < 30 ug/mg creatinine Microalbuminuria: 30 - 300 ug/mg creatinine Clinical Albuminuria: > 300 ug/mg creatinine 04/02/2025 10:3 8 AM EDT 04/02/2025 10:38 AM EDT us Kevin Gates MD LAB URINE ORDERABLES Final Re sult Performing Organization Address [facility] Co de Phone Number [place] See order comments [place] [address] * (ABNORMAL) Urinalysis with microscopic (04/02/2025 10:38 AM EDT) Color Urine Yellow See orde r comments Appearance Urine Clear See order comments pH Urine 5.0 5.0 - 9.0 See order comments Glucose Urine >=1000(A) Negative mg/dL See order comments Blood, Urine Trace(A) Negative See ord er comments Specific [place] Urine >=1.030(H) 1.005 - 1.025 See order comments Protein Urine Trace Neg-Trace mg/dL See order comments Ketones, Urine [...] obtained by clean catch procedure / Unknown 04/02/2025 10:38 AM EDT 04/02/2025 10:38 AM EDT Kevin Gates MD LAB URINE ORDERABLES Final Re sult Performing Organization Address [facility] de Phone Number [place] See order comments [place] [address] * (ABNORMAL) Creatinine (04/02/2025 9:18 AM EDT) Creatinine Serum 2.25(H) 0.5 - 1.4 mg/dL See order comments eGFR (Calc) 30 See orde r comments Comment: Chronic Kidney Disease: Estimated GFR < 60 mL/min/1.73m2 Severe Kidney Disease: Estimated GFR < 15 mL/min/1.73m2 04/02/2025 9:18 AM EDT 04/02/2025 9:18 AM EDT us Kevin Gates MD LAB BLOOD ORDERABLES Final Re sult Performing Organization Address [facility] de Phone Number [place] See order comments [place] [address] * (ABNORMAL) PTH, Intact (04/02/2025 9:18 AM EDT) Parathyroid Hormone, Intact 89.2(H) 8.7 - 77.1 pg/mL See order comments 04/02/2025 9:18 AM EDT 04/02/2025 9:18 AM EDT Kevin Gates MD LAB BLOOD ORDERABLES Final Re sult Performing Organization Address [facility] de Phone Number [place] See order comments [place] [address] * Vitamin D 25 Hydroxy (04/02/2025 9:18 AM EDT) Vitamin D, 25-Hydroxy 38.4 >30 ng/mL See order comments Comment: Health [...] as LC-MS/MS. Blood Venous blood / Unknown 04/02/2025 9:18 AM EDT 04/02/2025 9:18 AM EDT Kevin Gates MD LAB BLOOD ORDERABLES Final Re sult Performing Organization Address [facility] Co de Phone Number [place] See order comments [place] [address] * (ABNORMAL) CBC and Differential (04/02/2025 9:18 AM EDT) WBC 7.5 4.8 - 10.8 X10*3/uL See order comments RBC 4.39(L) 4.60 - 5.80 X10*6/uL See order comments Hgb 12.8(L) 14.0 - 18.0 g/dl See order comments Hematocrit 41.3(L) 42.0 - 52.0 % See order comments MCV 94.1 80.0 - 98.0 fL See order comments MCH 29.2 27.0 - 33.0 pg See order comments MCHC 31.0 31.0 - 36.0 g/dl See order comments RDW 13.9 11.0 - 16.0 % See order comments Platelets 276 160 - 400 X10*3/uL See order comments MPV 9.7 9.4 - 12.4 fL See order comments Neutrophils % Auto 61.5 45 - 73 % See order comments Immature Granulocytes 0.1 0.0 - 0.4 % See order comments Lymphocytes Relative 25.5 20 - 40 % See order comments Monocytes 8.5 2 - 11 % See order comments Eosinophils Relative 3.6 0 - 4 % See order comments Basophils Relative 0.8 0 - 2 % See order comments nRBC Count 0.0 0.0 - 0.2 /100WBC See order comments Neutrophils Absolute 4.6 2.0 - 8.3 x10*3/uL See order comments Immature Grans (Absolute) 0.01 0.00 - 0.03 X10*3/uL See order comments Lymphocytes Absolute 1.9 1.2 - 4.9 X10*3/uL See order comments Monocytes Absolute 0.6 0.1 - 1.2 X10*3/uL See order comments Eosinophils Absolute 0.3 0.0 - 0.4 X10*3/uL See order comments Basophils Absolute 0.1 0.0 - 0.2 X10*3/uL See order comments NRBC Absolute 0.000 0.0 - 0.012 X10*3/uL See order comments 04/02/2025 9:18 AM EDT 04/02/2025 9:18 AM EDT us Kevin Gates MD LAB BLOOD ORDERABLES Final Re sult [place] See order comments [place] [address] * (ABNORMAL) BUN (04/02/2025 9:18 AM EDT) BUN 27(H) 9 - 16 mg/dL See order comments 04/02/2025 9:18 AM EDT 04/02/2025 9:18 AM EDT us Kevin Gates MD LAB BLOOD ORDERABLES Final Re sult Performing Organization Address [facility] Phone Number [place] See order comments [place] [address] * Phosphorus (04/02/2025 9:18 AM EDT) Phosphorus, Serum 3.6 2.7 - 4.5 mg/dL See order comments Blood Venous blood / Unknown 04/02/2025 9:18 AM EDT 04/02/2025 9:18 AM EDT us Kevin Gates MD LAB BLOOD ORDERABLES Final Re sult Performing Organization Address [facility] de Phone Number [place] See order comments [place] [address] * Magnesium (04/02/2025 9:18 AM EDT) Magnesium 2.1 1.6 - 2.6 mg/dL See order comments Blood Venous blood / Unknown 04/02/2025 9:18 AM EDT 04/02/2025 9:18 AM EDT us Kevin Gates MD LAB BLOOD ORDERABLES Final Re sult Performing Organization Address [facility] de Phone Number [place] See order comments [place] [address] * Calcium (04/02/2025 9:18 AM EDT) Calcium 9.3 8.4 - 10.2 mg/dL See order comments Blood Venous blood / Unknown 04/02/2025 9:18 AM EDT 04/02/2025 9:18 AM EDT us Kevin Gates MD LAB BLOOD ORDERABLES Final Re sult Performing Organization Address [facility]/ZIP Co de Phone Number [facility] See order comments [place] [address] * Albumin (04/02/2025 9:18 AM EDT) Albumin 4.4 3.5 - 5.0 g/dL See order comments Blood Venous blood / Unknown 04/02/2025 9:18 AM EDT 04/02/2025 9:18 AM EDT Kevin Gates MD LAB BLOOD ORDERABLES Final Re sult Performing Organization Address [facility] Co de Phone Number [place] See order comments [place] [address] * (ABNORMAL) Electrolyte panel (04/02/2025 9:18 AM EDT) Sodium 143 135 - 145 mmol/L See order comments Potassium 4.7 3.3 - 5.1 mmol/L See order comments Chloride 109(H) 96 - 108 mmol/L See order comments Bicarbonate (CO2) 28 22 - 29 mmol/L See order comments Anion Gap 11(L) 12 - 20 See order comments 04/02/2025 9:18 AM EDT 04/02/2025 9:18 AM EDT Kevin Gates MD LAB BLOOD ORDERABLES Final Re sult Performing Organization Address [facility] Co de Phone Number [facility] See order comments [place] [address] from Last 3 Mon[address] Insurance [address] [place] [id number] One [employer] Dual SNP ([id number]) [facility] One Care Dual SNP ([id number]) Care Teams Transfer Engineer Relationship Specialty Start Date End Date Name, MD Joey [address] [place] [id number] PCP - General Internal Medicine 07/16/24
--- OUTSIDE RECORDS SUMMARY | 2025-05-06 08:46 | XMS_ITS | Encounter Summary ---
Author Organization [facility] Address [address] [place] [address] Phone Care Team Providers Care Casting And Curing Operator Name Role Phone Name, Joey MERINO Primary Care Provider [phone] Encounter Details Date Type Department Care Team (Late Contact Info) Description 08/09/2022 Telephone [facility] [address] [place] [address] Patricia Deras Social History Tobacco Use Types Packs/Day Years Used Date Smoking Tobacco: Never Assessed Sex and Gender Information Value Date Recorded Sex Assigned at Not on file Legal Sex Male 11:45 AM EST Gender Identity Not on file Sexual Orientation Not on file documented as of this encounter Functional Status documented as of this encounter Miscellaneous Notes * Telephone Encounter - Patricia Deras - 08/09/2022 1:38 PM EST PT is running late for his appointment today 1:45 pm 08/09/22. He is walking on his way. documented in this encounter Plan of Treatment Upcoming Encounters Date Type Department Care Team (Late Contact Info) Description 09/22/2025 10:45 AM EDT Office Visit [facility] [address] [address] Patricia Fulton ARNP [address] [facility] [address] [place] [address] documented as of this encounter Visit Diagnoses Not on filedocumented in this encounter Care Teams Casting And Curing Operator Relationship Specialty Start Date End Date Name, MD Joey [address] [place] [id number] PCP - General Internal Medicine 07/16/24 documented as of this encounter
== END 2025-05-06 08:15 | disposition home or self-care (01) ==
LOC: HO.LAB 08:14
PROVIDERS: PCP Nurse Practitioner Family; Visit Provider Nurse Practitioner Family
DX: E11.69 Type 2 diabetes mellitus with other specified complication (principal); N52.1 Erectile dysfunction due to diseases classified elsewhere; R39.9 Unspecified symptoms and signs involving the genitourinary system; R31.29 Other microscopic hematuria
CPT/HCPCS: 81003; 88112; 99212